=== PATIENT | female | born 1945 | race Caucasian/White ===

== ENCOUNTER 2022-12-19 08:29 | Outpatient (REF) | payer MEDICARE, MEDICAID, SELFPAY ==
--- OUTSIDE RECORDS SUMMARY | 2022-12-19 08:40 | XMS_ITS | CCD ---
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 Allergies Unknown or Not Available. Procedures Unknown or Not Available. History of Immunizations Unknown or Not Available. Problems Unknown or Not Available. Results Unknown or Not Available. Active Medications Unknown or Not Available. Medications Administered During Visit Unknown or Not Available. Encounters Unknown or Not Available. Social History Unknown or Not Available. Patient Decision Aids Unknown or Not Available. Discharge Instructions You were admitted to [facility] You were discharged from [facility] Should you have any questions prior to discharge, please contact a member of your healthcare team. If you have left the hospital and have any questions, please contact your primary care physician. Chief Complaint and Reason For Visit Unknown or Not Available. Function Status Unknown or Not Available. Plan of Care Unknown or Not Available. Referral/Transition of Care Unknown or Not Available.
--- OUTSIDE RECORDS SUMMARY | 2022-12-19 08:40 | XMS_ITS | Continuity of Care Document ---
Author Name Unknown Organization [facility] Address [address] [place] [address] Care Team Providers Care Medical Technologist Blood Bank Name Role Phone Jeannine Fernandes Primary Care Physician Noreen York Unavailable Unavailable Encounter [id number] Date(s): 10/29/22 - 10/29/22 [facility] [address] [place] [address] Encounter Diagnosis Hypercalcemia(Discharge Diagnosis) - 10/29/22 Discharge Disposition: Home or Self Care Attending Physician: Sang Dutton MD Admitting Physician: Sang Dutton MD Allergies, Adverse Reactions, Alerts Substance Reaction Severity Status codeine Rapid heart beat Unknown Active azithromycin Skin rash Unknown Active Assessment and Plan Extracted from: Title:Clinical Document Author:Vikki Bernard te:10/30/22 Diagnosis: 1. Hypercalcemia Comment: Diagnosis: Abnormal laboratory findings Comment: Diagnosis: Hyperglycemia - symptomatic Comment: Future Appointments Diagnostic Tests Pending * 1,25-Dihydroxyvitamin D, S PEREZ 10/29/22 Future Scheduled Tests Laboratory* Magnesium Level 05/22/22 Functional Status 10/29/22 Family Member Travel History No recent t ravel Recent Travel History No recent travel Other exposure to Infectious Disease Non e Immunizations Given and Recorded Vaccine Date Status Refusal Reason influenza virus vaccine, inactivated 04/09/22 Give n influenza virus vaccine, inactivated 04/21/13 Amaury rded influenza virus vaccine, inactivated 03/21/12 Amaury rded influenza virus vaccine, inactivated 02/27/11 Amaury rded influenza virus vaccine, inactivated 03/19/10 Amaury rded influenza virus vaccine, inactivated 05/28/09 Amaury rded influenza virus vaccine, inactivated 04/21/07 Amaury rded influenza virus vaccine, inactivated 03/24/06 Amaury rded influenza virus vaccine, inactivated 03/26/05 Amaury rded SARS-CoV-2 (COVID-19) mRNA BNT-162b2 vax 04/22/21 Recorded SARS-CoV-2 (COVID-19) mRNA BNT-162b2 vax 08/16/20 Recorded SARS-CoV-2 (COVID-19) mRNA BNT-162b2 vax 07/26/20 Recorded influenza, unspecified formulation 03/20/21 Record ed influenza, unspecified formulation 03/27/20 Record ed influenza, unspecified formulation 03/22/18 Record ed influenza, unspecified formulation 06/22/17 Record ed influenza, unspecified formulation 04/18/15 Record ed pneumococcal 23-polyvalent vaccine 03/27/20 Record ed pneumococcal 23-polyvalent vaccine 06/07/08 Record ed pneumococcal 23-polyvalent vaccine 06/07/02 Record ed pneumococcal 13-valent conjugate vaccine 09/16/15 Recorded tetanus/diphth/pertuss (Tdap) adult/adol 08/25/10 Recorded tetanus-diphth toxoids (Td) adult/adol 06/07/04 Re corded varicella virus vaccine 06/07/00 Recorded Medications amLODIPine 5 mg oral tablet 5 mg = 1 tab, Oral, Daily, # 90 tab, 3 Refill(s), Pharmacy: [facility] [place], 168, cm, 09/23/22 17:19:00 EDT, Height/Length Dosing, 64.1, kg, 09/23/22 17:19:00 EDT, Weight Dosing Start Date: 10/20/22 Status: Ordered aspirin 81 mg oral tablet, chewable 81 mg = 1 tab, Oral, Daily, # 90 tab, 0 Refill(s), Pharmacy: [facility] [place], 160, cm, 06/14/22 22:46:00 EST, Height/Length Dosing, 83, kg, 06/14/22 22:46:00 EST, Weight Dosing Start Date: 08/28/22 Status: Ordered atorvastatin 40 mg oral tablet 1 tab, Oral, Daily, # 84 tab, 0 Refill(s), Pharmacy: [facility] [address], 160, cm, 06/14/22 22:46:00 EST, Height/Length Dosing, 83, kg, 06/14/22 22:46:00 EST, Weight Dosing Start Date: 08/24/22 Status: Ordered BD Pen Needle Mini U/F 31G X 5 MM MISC BD Pen Needle Mini U/F 31G X 5 MM MISC, See Instructions, USE FOUR TIMES A DAY DIRECTED, # 100 EA, 2 Refill(s), Pharmacy: [facility] [address], 160, cm, 06/14/22 22:46:00 EST, Height/Length Dosing, 83, kg, 06/14/22 22:46:00 EST, Weight Dosing Start Date: 07/26/22 Status: Ordered BD UF MINI PEN NEEDLE [id number] BD UF MINI PEN NEEDLE [id number], See Instructions, USE DIRECTED FOUR TIMES A DAY NEEDED, # 100 EA, 3 Refill(s), Pharmacy: [facility] Start Date: 02/24/22 Status: Ordered BD UF Pen Needle Mini [id number] BD UF Pen Needle Mini [id number], Use one needle for each injection daily. (current Injections are 4 times daily), Supply, See instructions, # 100 EA, 2 Refill(s), Pharmacy: [facility] Start Date: 01/16/22 Status: Ordered Colace 100 mg oral capsule 100 mg = 1 cap, Oral, Daily, PRN as needed for constipation, # 90 cap, 0 Refill(s), Pharmacy: [facility], 168, cm, 09/23/22 17:19:00 EDT, Height/Length Dosing, 64.1, kg, 09/23/22 17:19:00 EDT, Weight Dosing Start Date: 10/13/22 Status: Ordered ferrous gluconate 324 mg (38 mg elemental iron) oral tablet 324 mg = 1 tab, Oral, Daily, # 90 tab, 0 Refill(s), Pharmacy: [facility] [place], 160, cm, 08/31/22 11:50:00 EDT, Height/Length Dosing, 36.2, kg, 08/31/22 11:50:00 EDT, Weight Dosing Start Date: 09/01/22 Status: Ordered ferrous gluconate 324 mg (38 mg elemental iron) oral tablet 324 mg = 1 tab, Oral, Daily Start Date: 12/17/21 Status: Ordered folic acid 1 mg oral tablet 1 mg = 1 tab, Oral, Daily, # 90 tab, 0 Refill(s), Pharmacy: [facility] [place], 160, cm, 08/31/22 11:50:00 EDT, Height/Length Dosing, 36.2, kg, 08/31/22 11:50:00 EDT, Weight Dosing Start Date: 09/01/22 Status: Ordered Glucerna Glucerna, Twice a day, Supply, See instructions, # 60 EA, 3 Refill(s), Pharmacy: [facility] Start Date: 07/13/22 Status: Ordered Levemir FlexTouch 100 units/mL subcutaneous solution 15 units =, Subcutaneous, every night at bedtime Start Date: 05/13/22 Status: Ordered magnesium oxide 400 mg (241.3 mg elemental magnesium) oral tablet 1 tab, Oral, BID, # 56 tab, 3 Refill(s), Pharmacy: [facility] [address], 168, cm, 09/01/22 14:46:00 EDT, Height/Length Dosing, 66.2, kg, 09/01/22 14:46:00 EDT, Weight Dosing Start Date: 09/22/22 Status: Ordered Melatonin 3 mg oral tablet 1 tab, Oral, every night at bedtime, # 28 tab, 3 Refill(s), Pharmacy: [facility] [address], 168, cm, 09/01/22 14:46:00 EDT, Height/Length Dosing, 66.2, kg, 09/01/22 14:46:00 EDT, Weight Dosing Start Date: 09/22/22 Status: Ordered memantine 5 mg oral tablet 5 mg = 1 tab, Oral, BID, # 60 tab, 5 Refill(s), Pharmacy: [facility] [place], 168, cm, 09/23/22 17:19:00 EDT, Height/Length Dosing, 64.1, kg, 09/23/22 17:19:00 EDT, Weight Dosing Start Date: 10/23/22 Status: Ordered Metoprolol Succinate ER 25 mg oral tablet, extended release 25 mg = 1 tab, Oral, Daily, TAKE ONE TABLET BY MOUTH EVERY DAY, # 90 tab, 3 Refill(s), Pharmacy: [facility] Start Date: 01/01/22 Status: Ordered MiraLax oral powder for reconstitution 17 g, Oral, Daily, PRN constipation, # 12 EA, 5 Refill(s), [facility], 168,cm, 09/23/22 17:19:00 EDT, Height/Length Dosing, 64.1, kg, 09/23/22 17:19:00 EDT, Weight Dosing Start Date: 10/23/22 Status: Ordered mupirocin 2% topical ointment See Instructions, APPLY A SMALL AMOUNT TOPICALLY TO AFFECTED AREA(S) THREE TIMES A DAY, # 22 g, 1 Refill(s), Pharmacy: [facility] Start Date: 03/23/22 Status: Ordered nitroglycerin 0.4 mg sublingual tablet 0.4 mg = 1 tab, SL, every 5 min, not to exceed 3 doses/15 min--if pain persists, seek medical attention, # 30 tab, 0 Refill(s), [facility], [facility], cm, 06/14/22 22:46:00 EST, Height/Length Dosing, 83, kg, 06/14/22 22:46:00 EST, We... Start Date: 06/18/22 Status: Ordered NovoLOG FlexPen 100 units/mL injectable solution 5 units =, Subcutaneous, TID(AC), # 10 mL, 0 Refill(s), Pharmacy: [facility], 168, cm, 05/16/22 21:31:00 EST, Height/Length Dosing, 70, kg, 05/16/22 21:31:00 EST, Weight Dosing Start Date: 06/04/22 Status: Ordered Onetouch Ultra Blue Test Strips Onetouch Ultra Blue Test Strips, use as directed four times daily, Supply, See instructions, # 300 EA, 12 Refill(s), Pharmacy: [facility] [place] Start Date: 07/27/22 Status: Ordered oxybutynin 5 mg oral tablet 5 mg = 1 tab, Oral, BID, PRN as needed for urinary discomfort, 2-3 TIMES DAILY NEEDED, # 30 tab,0 Refill(s), [facility], 168, cm, 05/16/22 21:31:00 EST, Height/Length Dosing, 70, kg, 05/16/22 21:31:00 EST, Weight Dosing Start Date: 06/04/22 Status: Ordered pantoprazole 40 mg oral delayed release tablet 40 mg = 1 tab, Oral, Daily Start Date: 05/13/22 Status: Ordered propranolol 20 mg oral tablet 3 tab, Oral, BID, # 180 tab, 5 Refill(s), Pharmacy: [facility] [place], 168, cm, 09/23/22 17:19:00 EDT, Height/Length Dosing, 64.1, kg, 09/23/22 17:19:00 EDT, Weight Dosing Start Date: 10/23/22 Status: Ordered venlafaxine 150 mg oral capsule, extended release 150 mg = 1 cap, Oral, Daily, # 90 cap, 3 Refill(s), Pharmacy: [facility] [place], 160, cm, 08/31/22 11:50:00 EDT, Height/Length Dosing, 36.2, kg, 08/31/22 11:50:00 EDT, Weight Dosing Start Date: 09/01/22 Status: Ordered Vitamin B2 100 mg oral tablet See Instructions, TAKE 1 TABLET BY MOUTH DAILY, # 84 tab, 2 Refill(s), Pharmacy: [facility] [address], 168, cm, 09/01/22 14:46:00 EDT, Height/Length Dosing, 66.2, kg, 09/01/22 14:46:00 EDT, Weight Dosing Start Date: 09/03/22 Status: Ordered Vitamin C TR 500 mg oral capsule 1 cap, Oral, Daily, 0 Refill(s) Start Date: 12/17/21 Status: Ordered Problem List Condition Confirmation Course Effective Dates Status H ealth Status Informant Abdominal pain Confirmed Active Anemia 1 Confirmed Active Anxiety Confirmed Active Atrial thrombus Confirmed Active Atrophic gastritis 2 Confirmed Active Chest pain Confirmed Active Chronic kidney disease stage 4 3 Confirmed 04/18/19 Active 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 Delirium Confirmed 04/18/19 Active Depressive disorder 4 Confirmed Active Disease caused by 2019 novel coronavirus 5 Confirmed 08/31/22 Active Essential tremor 6 Confirmed Active Gastroesophageal reflux disease Confirmed Active GI bleed Confirmed Active Hyperlipidemia Confirmed Active Hyperosmolality Confirmed 04/18/19 Active Hypertensive disorder Confirmed Active Idiopathic osteoarthritis 7 Confirmed Active Irritable bowel syndrome with diarrhea 8 Confirmed Active Migraine Confirmed Active Obesity Confirmed Active Posttraumatic stress disorder Confirmed Active Imaging abnormality Confirmed Active Recurrent major depression 9 Confirmed Active Renal mass 10 Confirmed 11/5/19 Active Type 2 diabetes mellitus without complication 11 Confirmed 12/26/19 Active Unintended weight loss Confirmed Active Urinary incontinence 12 Confirmed Active Urinary tract infectious disease 13 Confirmed 03/26/21 Active 1From 09-14-2021 visit: Stable, monitor, c/w iron supplementation. 2From 07-11-2018 visit: Recommend trialing to cut down on pantoprazole as tolerated. Can cut pills in half versus alternating every other day. 3From 10-03-2020 visit: Renal decline has slowed and is now presumably stable. We discussed hydration and avoidance of nephrotoxic agents. We will continue to monitor renal function. 4From 09-12-2021 visit: Well controlled, c/w venlafaxine 150 mg QD. Pt was on both venlafaxine and amitrytyline but this was dc'ed due to risk of serotonin syndrome. Mood at baseline. 5Problem added by Rule (IC_COVID19_AUTO_PROBLEM) following SARS-CoV-2 (COVID- 19)/Flu/RSV (GeneXpert)from Nasal Swab collected on 31-AUG-2022 11:58:00 EDT tested positive for COVID-19. 6From 09-12-2021 visit: Improvement w/ propanolol, which also seems to be helping headaches. Continue w/ dosing of 60 mg BID. 7From 12-19-2020 visit: Pain and restriction in lower extremities. Compounded by advanced essential tremor. Remains high risk for falls. Her walker has helped, but occasionally requires rests/stops. She is advised to obtaina rolling walker with a seat that will allow her to rest and avoid falls. 8From 03-18-2020 visit: Ongoing symptoms of diarrhea, with some predominant cramping and pain. Currently managed with sparing use of loperamide as needed 9From 12-02-2020 visit: Was seeing a counsellor but unclear why this relationship has ended. May be complicated by loneliness, but she is encouraged to re-establish with counsellor 10From 04-11-2019 visit: Cystic lesion on right kidney, with multiple nodules noted in the lungs. High concern for malignancy with metastasis, but unknown primary. Will obtain PET scan to determine ideal site for biopsy. 11From 10-13-2021 visit: BS have been better controlled, still having high readings in AM. Usual BS values <250s, compared to previous. Continue w/ novolog 5 units TID w/ meals as long as BS <300, take 10 units if BS >300. Given elevated BS in AM, restart on levemir but at dosing of 5 units QHS with hold parameters if evening BS is <150 as she checks QID. Will also obtain labs today given CKD and check renal f unction. 12From 10-13-2021 visit: At baseline, needs med refilled. 13From 03-28-2021 visit: e coli green sensitive on keflex Procedures Procedure Date Related Diagnosis Body Site Status Colonoscopy 11/22/14 Completed Ventral Hernia Repair 01/17/12 Com pleted EGD - Esophagogastroduodenoscopy 1 06/12/08 Completed Oophorectomy- left 06/06/03 Comple mason Appendectomy 06/06/79 Completed Oophorectomy-right 06/06/79 Comple mason Cholecystectomy 06/06/73 Completed Total abdominal hysterectomy 06/06/71 Completed 1With biopsy for H Pylori, negative Results Laboratory List Name Date Calcium Level Ionized 10/29/22 Comprehensive Metabolic Panel (CMP) 10/29 Free T4 10/29/22 PTH Intact [facility] 10/29/22 Beta Hydroxybutyrate 10/29/22 Blood Gas Venous 10/29/22 CBC w/ Diff 10/29/22 Calcium Level Ionized 10/29/22 Comprehensive Metabolic Panel (CMP) 10/29 Thyroid Stimulating Hormone (TSH) 3 Automated Diff 10/29/22 Glucose POCT 10/29/22 Most recent to oldest [Reference Range]: 1 2 WBC [5.0-10.0 x10^3/mcL] 9.4 x10^3/mcL (10/29/22 4:55 PM) RBC [4.1-5.3 x10^6/mcL] 3.7 x10^6/mcL *LOW* (10/29/22 4:55 PM) Neutro Auto [40.0-75.0 %] 75.9 % *HI* (10/29/22 4:55 PM) Lymph Auto [20.0-50.0 %] 13.2 % *LOW* (10/29/22 4:55 PM) Marin Auto [2.0-15.0 %] 6.6 % (10/29/22 4:55 PM) Basophil Auto [0.0-1.0 %] 0.6 % (10/29/22 4:55 PM) BUN [7-18 mg/dL] 43 mg/dL *HI* (10/29/22 7:59 PM) 48 mg/dL *HI* (10/29/22 4:55 PM) Glucose POC [74-106 mg/dL] 322 mg/dL *HI* (10/29/22 4:45 PM) Glucose Level [74-106 mg/dL] 239 mg/dL *HI* (10/29/22 7:59 PM) 356 mg/dL *HI* (10/29/22 4:55 PM) Potassium Level [3.5-5.1 mmol/L] 3.8 mmo l/L (10/29/22 7:59 PM) 4.4 mmol/L (10/29/22 4:55 PM) MCV [80.0-96.0 fL] 95.7 fL (10/29/22 4:55 PM) T4 Free [0.76-1.46 ng/dL] 1.12 ng/dL (10/29/22 7:59 PM) CO2 Total Venous 34 mmol/L *NA* (10/29/22 4:55 PM) HCO3 Venous [22-30 mmol/L] 33 mmol/L *HI* (10/29/22 4:55 PM) AST [15-37 unit/L] 17 unit/L (10/29/22 7:59 PM) 16 unit/L (10/29/22 4:55 PM) ALT [14-59 unit/L] 14 unit/L (10/29/22 7:59 PM) 14 unit/L (10/29/22 4:55 PM) MCHC [31.0-35.0 g/dL] 33.1 g/dL (10/29/22 4:55 PM) Sodium Level [136-145 mmol/L] 139 mmol/L (10/29/22 7:59 PM) 134 mmol/L *LOW* (10/29/22 4:55 PM) Hct [37.0-47.0 %] 35.3 % *LOW* (10/29/22 4:55 PM) Calcium Level [8.5-10.1 mg/dL] 11.4 mg/d L *HI* (10/29/22 7:59 PM) 13.3 mg/dL 1 *CRIT* (10/29/22 4:55 PM) Albumin Level [3.4-5.0 g/dL] 2.5 g/dL *LOW* (10/29/22 7:59 PM) 3.1 g/dL *LOW* (10/29/22 4:55 PM) Protein Total [6.4-8.2 g/dL] 5.9 g/dL *LOW* (10/29/22 7:59 PM) 7.5 g/dL (10/29/22 4:55 PM) MCH [26.0-32.0 pg] 31.7 pg (10/29/22 4:55 PM) Neutro Absolute 7.2 x10^3/mcL *NA* (10/29/22 4:55 PM) Bilirubin Total [0.2-1.0 mg/dL] 0.4 mg/d L (10/29/22 7:59 PM) 0.6 mg/dL (10/29/22 4:55 PM) Hgb [12.0-16.0 g/dL] 11.7 g/dL *LOW* (10/29/22 4:55 PM) Alk Phos [46-146 unit/L] 89 unit/L (10/29/22 7:59 PM) 110 unit/L (10/29/22 4:55 PM) pCO2 Romain [33-47 mmHg] 58 mmHg *HI* (10/29/22 4:55 PM) Platelets [130-450 x10^3/mcL] 108 x10^3/ mcL *LOW* (10/29/22 4:55 PM) CO2 [21-32 mmol/L] 28 mmol/L (10/29/22 7:59 PM) 32 mmol/L (10/29/22 4:55 PM) Calcium Level Ionized [1.12-1.32 mmol/L] 1.55 mmol/L *HI* (10/29/22 7:59 PM) 1.66 mmol/L *HI* (10/29/22 4:55 PM) TSH [0.358-3.740 mcIntlUnit/mL] 4.064 mc IntlUnit/mL *HI* (10/29/22 4:55 PM) pO2 Romain 20 mmHg *NA* (10/29/22 4:55 PM) pH Romain [7.32-7.43 pH unit(s)] 7.36 pH un it(s) (10/29/22 4:55 PM) O2 Sat Romain 32 % *NA* (10/29/22 4:55 PM) eGFR Non-AA [>=60] 15 *LOW* (10/29/22 7:59 PM) 13 *LOW* (10/29/22 4:55 PM) eGFR AA [>=60] 15 *LOW* (10/29/22 7:59 PM) 13 *LOW* (10/29/22 4:55 PM) Base Excess Venous 5.6 mmol/L *NA* (10/29/22 4:55 PM) Chloride Level [98-107 mmol/L] 102 mmol/ L (10/29/22 7:59 PM) 94 mmol/L *LOW* (10/29/22 4:55 PM) RDW-CV [11.5-14.5 %] 14.7 % *HI* (10/29/22 4:55 PM) Imm Gran Auto [0.0-0.9 %] 0.3 % (10/29/22 4:55 PM) Creatinine Level [0.55-1.02 mg/dL] 3.13 mg/dL *HI* (10/29/22 7:59 PM) 3.57 mg/dL *HI* (10/29/22 4:55 PM) PTH Intact [facility] [19-88 pg/mL] 10 pg/mL 2 *LOW* (10/29/22 5:36 PM) Beta-Hydroxybutyrate [0.0-0.5 mmol/L] 0. 5 mmol/L (10/29/22 5:31 PM) Eos, Auto [1.0-6.0 %] 3.4 % (10/29/22 4:55 PM) 1Result Comment: Called to and verbally verified by Lorna Garcia (OSMAN) at _10/29/2022 17:45:29 EDT PJB. 2Result Comment: Test performed [place] [address] Vital Signs Most recent to oldest [Reference Range]: 1 2 3 Temperature Temporal Artery [36-38 Deg C] 36.1 Deg C (10/29/22 4:28 PM) Peripheral Pulse Rate [60-100 bpm] 64 bpm (10/29/22 9:13 PM) 58 bpm *LOW* (10/29/22 7:09 PM) 56 bpm *LOW* (10/29/22 5:30 PM) Heart Rate Monitored [60-100 bpm] 64 bpm (10/29/22 9:13 PM) 57 bpm *LOW* (10/29/22 5:30 PM) 60 bpm (10/29/22 5:00 PM) Respiratory Rate [12-24 br/min] 15 br/min (10/29/22 9:13 PM) 16 br/min (10/29/22 7:09 PM) 14 br/min (10/29/22 5:30 PM) Blood Pressure [90-140/60-90 mmHg] 113/54mmHg (10/29/22 9:13 PM) 123/57mmHg (10/29/22 7:09 PM) 120/42mmHg (10/29/22 5:30 PM) Weight Dosing 64.86 kg (10/29/22 4:36 PM) Weight Estimated 64.86 kg (10/29/22 4:28 PM) Height/Length Dosing 167.000 cm (10/29/22 4:36 PM) Height/Length Estimated 167.000 cm (10/29/22 4:28 PM) Social History Social History Type Response Tobacco Never tobacco user T obacco Use:. Sex Female Hospital Discharge Instructions Follow Up Care 10/29/2022 16:28:19 With:Jeannine Fernandes MD Address: [place] [address]- When:1 to 2 days Physician Emergency department Note * Merritt Vitale MD: PERFORM, MODIFY Event Display: ED Note Physician Authored Date: [id number] MARIA INES BROOKS :1945 Age:77 years Sex:Female Visit Date:10/29/2022 Primary Care Physician: Jeannine Fernandes MD ED Supervision/Handoff Note: Patient who was signed out to me by Dr. Dutton??pending??hydration and checking of calcium level History Of Present Illness: Patient with hypercalcemia comes with a calcium level of 13??who received IV hydration??by Dr. Dutton Review of Systems: As per Dr. Dutton Medical Decision Making: Patient who has a history of hypercalcemia??there is no??etiology??and her parathyroid hormone is low.?? She came with a calcium level that was high??but has now improved after IV hydration and will be discharged home Vitals & Measurements T:??36.1?C ??(Temporal Artery)?? HR:??64??(Peripheral)?? HR:??64??(Monitored)?? RR:??15?? BP:??113/54?? SpO2:??97%?? HT:??167.000??cm?? WT:??64.86??kg??(Estimated)?? O2 Therapy:??Room air?? Procedure No Qualifying Data Lab Results Blood Gases?? LATEST RESULTS?? HISTORICAL RESULTS?? pH Romain?? 10/29/22 16:55?? 7.36?? 09/01/22?? 7.40?? pCO2 Romain?? 10/29/22 16:55?? 58 ??High?? 09/01/22?? 36?? pO2 Romain?? 10/29/22 16:55?? 20?? 09/01/22?? 43?? HCO3 Venous?? 10/29/22 16:55?? 33 ??High?? 09/01/22?? 23?? O2 Sat Romain?? 10/29/22 16:55?? 32?? 09/01/22?? 85?? CO2 Total Venous?? 10/29/22 16:55?? 34?? 09/01/22?? 24?? Base Excess Venous?? 10/29/22 16:55?? 5.6?? 09/01/22?? -1.8? CBC and Differential?? LATEST RESULTS?? HISTORICAL RESULTS?? WBC?? 10/29/22 16:55?? 9.4?? 09/23/22?? 7.2?? RBC?? 10/29/22 16:55?? 3.7 ??Low?? 09/23/22?? 4.1?? Hgb?? 10/29/22 16:55?? 11.7 ??Low?? 09/23/22?? 12.5?? Hct?? 10/29/22 16:55?? 35.3 ??Low?? 09/23/22?? 37.8?? MCV?? 10/29/22 16:55?? 95.7?? 09/23/22?? 92.4?? MCH?? 10/29/22 16:55?? 31.7?? 09/23/22?? 30.6?? MCHC?? 10/29/22 16:55?? 33.1?? 09/23/22?? 33.1?? RDW-CV?? 10/29/22 16:55?? 14.7 ??High?? 09/23/22?? 14.3?? Platelets?? 10/29/22 16:55?? 108 ??Low?? 09/23/22?? 166?? Neutro Auto?? 10/29/22 16:55?? 75.9 ??High?? 09/23/22?? 62.9?? Lymph Auto?? 10/29/22 16:55?? 13.2 ??Low?? 09/23/22?? 21.7?? Marin Auto?? 10/29/22 16:55?? 6.6?? 09/23/22?? 9.3?? Eos, Auto?? 10/29/22 16:55?? 3.4?? 09/23/22?? 4.6?? Basophil Auto?? 10/29/22 16:55?? 0.6?? 09/23/22?? 0.7?? Imm Gran Auto?? 10/29/22 16:55?? 0.3?? 09/23/22?? 0.8?? Neutro Absolute?? 10/29/22 16:55?? 7.2?? 09/23/22?? 4.5? Routine Chemistry?? LATEST RESULTS?? HISTORICAL RESULTS?? Sodium Level?? 10/29/22 19:59?? 139?? 10/27/22?? 132 ??Low?? Potassium Level?? 10/29/22 19:59?? 3.8?? 10/27/22?? 4.8?? Chloride Level?? 10/29/22 19:59?? 102?? 10/27/22?? 93 ??Low?? CO2?? 10/29/22 19:59?? 28?? 10/27/22?? 30?? Alk Phos?? 10/29/22 19:59?? 89?? 10/27/22?? 111?? AST?? 10/29/22 19:59?? 17?? 10/27/22?? 14 ??Low?? ALT?? 10/29/22 19:59?? 14?? 10/27/22?? 14?? BUN?? 10/29/22 19:59?? 43 ??High?? 10/27/22?? 50 ??High?? Glucose Level?? 10/29/22 19:59?? 239 ??High?? 10/27/22?? 355 ??High?? Creatinine Level?? 10/29/22 19:59?? 3.13 ??High?? 10/27/22?? 3.37 ??High?? eGFR AA?? 10/29/22 19:59?? 15 ??Low?? 10/27/22?? 13 ??Low?? eGFR Non-AA?? 10/29/22 19:59?? 15 ??Low?? 10/27/22?? 13 ??Low?? Calcium Level?? 10/29/22 19:59?? 11.4 ??High?? 10/27/22?? 13.2 ??Critical?? Protein Total?? 10/29/22 19:59?? 5.9 ??Low?? 10/27/22?? 7.3?? Albumin Level?? 10/29/22 19:59?? 2.5 ??Low?? 10/27/22?? 3.1 ??Low?? Bilirubin Total?? 10/29/22 19:59?? 0.4?? 10/27/22?? 0.5?? Calcium Level Ionized?? 10/29/22 19:59?? 1.55 ??High?? 10/27/22?? 1.71 ??High?? Beta-Hydroxybutyrate?? 10/29/22 17:31?? 0.5?? 09/23/22?? 0.4?? Glucose POC?? 10/29/22 16:45?? 322 ??High?? 09/03/22?? 275 ??High? Thyroid Studies?? LATEST RESULTS?? HISTORICAL RESULTS?? T4 Free?? 10/29/22 19:59?? 1.12? TSH?? 10/29/22 16:55?? 4.064 ??High?? 05/13/22?? 2.870? Assessment/Plan 1.??Hypercalcemia??E83.52 Electronically Signed on 10/29/22 09:33 PM Merritt Vitale MD Emergency department Discharge instructions * Merritt Vitale MD: PERFORM, MODIFY Event Display: ED Discharge Information Authored Date: [id number] MARIA INES BROOKS :1945 Age:77 years Sex:Female Visit Date:10/29/2022 Primary Care Physician: Jeannine Fernandes MD Discharge Instructions We would like to thank you for allowing us to assist you with your healthcare needs. The following includes patient education materials and information regarding your injury/illness. Diagnosis from Today's Visit Hypercalcemia Discharge Vitals Temperature??(Temporal Artery) 97.0 ??F (36.1 ??C) Heart Rate??(Peripheral) 64 Heart Rate??(Monitored) 64 Respiratory Rate?? 15 Blood Pressure?? 113/54?? Height?? 65.75 in (167.000 cm) Weight??(Estimated) 143.02 lb (64.86 kg) Allergies azithromycin??(Skin rash) codeine??(Rapid heart beat) What to Do Next You Need to Schedule the Following Appointments Follow Up with??Jeannine Fernandes MD When:??Within 1 to 2 days Where: [place] [address]- Upcoming Scheduled Appointments Wednesday 11:20 AM EDT ?? Wednesday 10:00 AM EDT ?? You were treated today on an emergency basis; it may be ospina to contact your primary care provider to notify them of your visit today. You may have been referred to your regular doctor or a specialist, please follow up as instructed. If your condition worsens or you can't get in to see the doctor, contact the Emergency Department. Medications What How Much When Why Instructions Next Dose Unchanged amLODIPine (amLODIPine 5 mg oral tablet) 1 tab Oral (given by mouth) Every day Unchanged ascorbic acid (Vitamin C TR 500 mg oral capsule) 1 Capsules Oral (given by mouth) Every day Unchanged aspirin (aspirin 81 mg oral tablet, chewable) 1 tab Oral (given by mouth) Every day Unchanged atorvastatin (atorvastatin 40 mg oral tablet) 1 tab Oral (given by mouth) Every day Unchanged docusate (Colace 100 mg oral capsule) 1 Capsules Oral (given by mouth) Every day as needed for as needed for constipation Abdominal pain Unchanged Durable Medical Equipment for Prescription (BD UF Pen Needle Mini [id number]) See instructions DM2 (diabetes mellitus, type 2) Use one needle for each injection daily. (current Injections are 4 times daily) ?? Unchanged Durable Medical Equipment for Prescription (Glucerna) See instructions Twice a day ?? Unchanged Durable Medical Equipment for Prescription (Onetouch Ultra Blue Test Strips) See instructions Diabetes use as directed four times daily ?? Unchanged ferrous gluconate (ferrous gluconate 324 mg (38 mg elemental iron) oral tablet) 1 tab Oral (given by mouth) Every day Unchanged ferrous gluconate (ferrous gluconate 324 mg (38 mg elemental iron) oral tablet) 1 tab Oral (given by mouth) Every day Unchanged folic acid (folic acid 1 mg oral tablet) 1 tab Oral (given by mouth) Every day Unchanged insulin aspart (NovoLOG FlexPen 100 units/ mL injectable solution) 5 Units Subcutaneous (under the skin) 3 times a day before meals Unchanged insulin detemir (Levemir FlexTouch 100 units/ mL subcutaneous solution) 15 Units Subcutaneous (under the skin) Every night at bedtime Unchanged magnesium oxide (magnesium oxide 400 mg (241.3 mg elemental magnesium) oral tablet) 1 tab Oral (given by mouth) 2 times a day Unchanged melatonin (Melatonin 3 mg oral tablet) 1 tab Oral (given by mouth) Every night at bedtime Unchanged memantine (memantine 5 mg oral tablet) 1 tab Oral (given by mouth) 2 times a day Unchanged metoprolol (Metoprolol Succinate ER 25 mg oral tablet, extended release) 1 tab Oral (given by mouth) Every day TAKE ONE TABLET BY MOUTH EVERY DAY ?? Unchanged mupirocin topical (mupirocin 2% topical ointment) See instructions APPLY A SMALL AMOUNT TOPICALLY TO AFFECTED AREA(S) THREE TIMES A DAY ?? Unchanged nitroglycerin (nitroglycerin 0.4 mg sublingual tablet) 1 tab Sublingual (dissolve under the tongue) Every 5 minutes not to exceed 3 doses/ 15 min--if pain persists, seek medical attention ?? Unchanged Other Prescription (BD Pen Needle Mini U/ F 31G X 5 MM MISC) See instructions USE FOUR TIMES A DAY DIRECTED ?? Unchanged Other Prescription (BD UF MINI PEN NEEDLE [id number]) See instructions USE DIRECTED FOUR TIMES A DAY NEEDED ?? Unchanged oxybutynin (oxybutynin 5 mg oral tablet) 1 tab Oral (given by mouth) 2 times a day as needed for as needed for urinary discomfort 2-3 TIMES DAILY NEEDED ?? Unchanged pantoprazole (pantoprazole 40 mg oral delayed release tablet) 1 tab Oral (given by mouth) Every day Unchanged polyethylene glycol 3350 (MiraLax oral powder for reconstitution) 17 Gram Oral (given by mouth) Every day as needed for constipation Abdominal pain Unchanged propranolol (propranolol 20 mg oral tablet) 3 tab Oral (given by mouth) 2 times a day Unchanged riboflavin (Vitamin B2 100 mg oral tablet) See instructions TAKE 1 TABLET BY MOUTH DAILY ?? Unchanged venlafaxine (venlafaxine 150 mg oral capsule, extended release) 1 Capsules Oral (given by mouth) Every day Tests Performed Medications and Immunizations Administered Given 0.9% NaCl bolus, 1 L, IV Bolus NS bolus, 1000 mL, IV Piggyback Lab Test Name Test Result Date/Time pH Romain 7.36 pH unit(s) 10/29/2022 16:55 EDT pCO2 Romain 58 mmHg 10/29/2022 16:55 EDT pO2 Romain 20 mmHg 10/29/2022 16:55 EDT HCO3 Venous 33 mmol/L 10/29/2022 16:55 EDT O2 Sat Romain 32 % 10/29/2022 16:55 EDT CO2 Total Venous 34 mmol/L 10/29/2022 16:55 EDT Base Excess Venous 5.6 mmol/L 10/29/2022 16:55 EDT WBC 9.4 x10^3/mcL 10/29/2022 16:55 EDT RBC 3.7 x10^6/mcL 10/29/2022 16:55 EDT Hgb 11.7 g/dL 10/29/2022 16:55 EDT Hct 35.3 % 10/29/2022 16:55 EDT MCV 95.7 fL 10/29/2022 16:55 EDT MCH 31.7 pg 10/29/2022 16:55 EDT MCHC 33.1 g/dL 10/29/2022 16:55 EDT RDW-CV 14.7 % 10/29/2022 16:55 EDT Platelets 108 x10^3/mcL 10/29/2022 16:55 EDT Neutro Auto 75.9 % 10/29/2022 16:55 EDT Lymph Auto 13.2 % 10/29/2022 16:55 EDT Marin Auto 6.6 % 10/29/2022 16:55 EDT Eos, Auto 3.4 % 10/29/2022 16:55 EDT Basophil Auto 0.6 % 10/29/2022 16:55 EDT Imm Gran Auto 0.3 % 10/29/2022 16:55 EDT Neutro Absolute 7.2 x10^3/mcL 10/29/2022 16:55 EDT Sodium Level 139 mmol/L 10/29/2022 19:59 EDT Potassium Level 3.8 mmol/L 10/29/2022 19:59 EDT Chloride Level 102 mmol/L 10/29/2022 19:59 EDT CO2 28 mmol/L 10/29/2022 19:59 EDT Alk Phos 89 unit/L 10/29/2022 19:59 EDT AST 17 unit/L 10/29/2022 19:59 EDT ALT 14 unit/L 10/29/2022 19:59 EDT BUN 43 mg/dL 10/29/2022 19:59 EDT Glucose Level 239 mg/dL 10/29/2022 19:59 EDT Creatinine Level 3.13 mg/dL 10/29/2022 19:59 EDT eGFR AA 15 10/29/2022 19:59 EDT eGFR Non-AA 15 10/29/2022 19:59 EDT Calcium Level 11.4 mg/dL 10/29/2022 19:59 EDT Protein Total 5.9 g/dL 10/29/2022 19:59 EDT Albumin Level 2.5 g/dL 10/29/2022 19:59 EDT Bilirubin Total 0.4 mg/dL 10/29/2022 19:59 EDT Calcium Level Ionized 1.55 mmol/L 10/29/2022 19:59 EDT Beta-Hydroxybutyrate 0.5 mmol/L 10/29/2022 17:31 EDT Glucose POC 322 mg/dL 10/29/2022 16:45 EDT T4 Free 1.12 ng/dL 10/29/2022 19:59 EDT TSH 4.064 mcIntlUnit/mL 10/29/2022 16:55 EDT Patient/Tyre Builder Signature Patient Name:MARIA INES BROOKS I have received this information and my questions have been answered. Patient/Tyre Builder Name: Patient/Tyre Builder Signature: Relationship to Patient: Witness Name/Signature: Date: Electronically Signed on: 10/29/2022 21:31 EDTSigned by:LOLA Discharge summary * Vikki Bernard: PERFORM Event Display: Discharge Note Authored Date: * Vikki Bernard: PERFORM Event Display: Discharge Note Authored Date: Diagnosis: 1. Hypercalcemia Comment: Diagnosis: Abnormal laboratory findings Comment: Diagnosis: Hyperglycemia - symptomatic Comment: Electronically Signed on 10/30/22 05:23 AM Vikki Bernard Patient Care team information Care Team Personnel Name: Jeannine Fernandes MD Position: Physician Member Role: Informed Provider Address: Address: [address] Name: Nithin Bellamy RIBBON LAPPER TENDER Position: Physician Member Role: Nurse Practitioner Address: Address: [address] Name: Noreen York Position: Ambulatory - RN/AIR BRUSH DECORATOR [facility]) Member Role: Medical Reception Name: Grupo Walters RIBBON LAP[employer] TENDER Position: Physician Member Role: Nurse Practitioner Name: Makenzie Rene Position: Nurse Member Role: ED Nurse Name: Juju Pena RN Position: Nurse Member Role: ED Nurse Name: Sang Dutton MD Position: Physician Member Role: Attending Physician Address: Address: [address] [place] [address] [place] [address] [place] Care Team Related Persons Name: ROMAN EARL Address: [place] [address] Address: [address] [phone] Name: ROMAN EARL Address: [address] [address] Address: [address] [phone]
--- OUTSIDE RECORDS SUMMARY | 2022-12-19 08:40 | XMS_ITS | Continuity of Care Document ---
Author Name Unknown Organization [facility] Address [address] [place] [address] Care Team Providers Care Medical Technologist Microbiology Name Role Phone Jeannine Fernandes Primary Care Physician Noreen York Unavailable Unavailable Encounter [facility] Date(s): 06/09/22 - 06/09/22 [facility] [address] [place] [address] Discharge Disposition: Home or Self Care Attending Physician: Contreras Salas MD Admitting Physician: Contreras Salas MD Referring Physician: Contreras Salas MD Allergies, Adverse Reactions, Alerts Substance Reaction Severity Status codeine Rapid heart beat Unknown Active azithromycin Skin rash Unknown Active Assessment and Plan Future Appointments Future Scheduled Tests Laboratory* CBC w/ Diff 05/06/22 * Comprehensive Metabolic Panel 05/06/22 * Magnesium Level 05/22/22 * Urinalysis with Micro if Indicated and Culture if Indicated 05/07/22 * CBC w/o Diff 05/22/22 * Urinalysis Notify Lab 05/07/22 Immunizations Given and Recorded Vaccine Date Status [...] vaccine 03/27/20 Record ed pneumococcal 23-polyvalent vaccine 06/07/02 Record ed pneumococcal 13-valent conjugate vaccine 09/16/15 Recorded tetanus/diphth/pertuss (Tdap) adult/adol 08/25/10 Recorded tetanus-diphth toxoids (Td) adult/adol 06/07/04 Re corded varicella virus vaccine 06/07/00 Recorded Medications acetaminophen 500 mg oral tablet 1,000 mg = 2 tab, Oral, every 6 hr, PRN not specified, 0 Refill(s) Start Date: 05/04/22 Status: Ordered amLODIPine 5 mg oral tablet 5 mg = 1 tab, Oral, Daily, # 30 tab, 5 Refill(s), Pharmacy: [facility], 161, cm, 05/12/2220:25:00 EST, Height/Length Dosing, 77.5, kg, 05/12/22 20:25:00 EST, Weight Dosing Start Date: 05/15/22 Status: Ordered apixaban 5 mg oral tablet 5 mg = 1 tab, Oral, BID, # 60 tab, 2 Refill(s), Pharmacy: [facility], 168, cm, 05/16/22 21:31:00 EST, Height/Length Dosing, 70, kg, 05/16/22 21:31:00 EST, Weight Dosing Start Date: 06/04/22 Status: Ordered aspirin 81 mg oral tablet, chewable 81 mg = 1 tab, Oral, Daily, # 90 tab, 1 Refill(s), Pharmacy: [facility], 161, cm, 05/12/22 20:25:00 EST, Height/Length Dosing, 77.5, kg, 05/12/22 20:25:00 EST, Weight Dosing Start Date: 05/15/22 Status: Ordered atorvastatin 40 mg oral tablet 40 mg = 1 tab, Oral, Daily, # 90 tab, 0 Refill(s), [facility], 168, cm, 05/16/22 21:31:00 EST, Height/Length Dosing, 70, kg, 05/16/22 21:31:00 EST, Weight Dosing Start Date: 06/04/22 Status: Ordered BD UF MINI PEN NEEDLE [id number] BD UF MINI PEN NEEDLE [id number], See Instructions, USE DIRECTED FOUR TIMES A DAY NEEDED, # 100 EA, 3 Refill(s), Pharmacy: [facility] Start Date: 02/24/22 Status: Ordered BD UF Pen Needle Mini [id number] BD UF Pen Needle Mini [id number], Use one needle for each injection daily. (current Injections are 4 times daily), Supply, See instructions, # 100 EA, 2 Refill(s), Pharmacy: [facility] Start Date: 01/16/22 Status: Ordered Eliquis 5 mg oral tablet 5 mg = 1 tab, Oral, BID, # 60 tab, 0 Refill(s) Start Date: 05/20/22 Status: Ordered ferrous gluconate 324 mg (38 mg elemental iron) oral tablet 324 mg = 1 tab, Oral, Daily Start Date: 12/17/21 Status: Ordered folic acid 1 mg oral tablet 1 mg = 1 tab, Oral, Daily, # 90 tab, 0 Refill(s), Pharmacy: [facility], 168, cm, 06/09/22 9:44:00 EST, Height/Length Dosing, 69.4, kg, 06/09/22 9:44:00 EST, Weight Dosing Start Date: 06/09/22 Status: Ordered Glucagon Emergency Kit for Low Blood Sugar 1 mg injection 0 Refill(s) Start Date: 05/04/22 Status: Ordered Levemir FlexTouch 100 units/mL subcutaneous solution 15 units =, Subcutaneous, every night at bedtime Start Date: 05/13/22 Status: Ordered loperamide 2 mg oral capsule 2 mg = 1 cap, Oral, every 4 hr, PRN as needed for loose stool, # 60 cap, 2 Refill(s), [facility], cm, 05/16/22 21:31:00 EST, Height/Length Dosing, 70, kg, 05/16/22 21:31:00 EST, Weight Dosing Start Date: 06/04/22 Status: Ordered magnesium oxide 400 mg (241.3 mg elemental magnesium) oral tablet 400 mg = 1 tab, Oral, BID, # 60 tab, 3 Refill(s), Pharmacy: [facility], 168, cm, 05/16/22 21:31:00 EST, Height/Length Dosing, 70, kg, 05/16/22 21:31:00 EST, Weight Dosing Start Date: 06/04/22 Status: Ordered Melatonin 3 mg oral tablet 3 mg 1 tab, Oral, every night at bedtime Start Date: 05/13/22 Status: Ordered memantine 5 mg oral tablet 5 mg = 1 tab, Oral, BID Start Date: 12/17/21 Status: Ordered Metoprolol Succinate ER 25 mg oral tablet, extended release 25 mg = 1 tab, Oral, Daily, TAKE ONE TABLET BY MOUTH EVERY DAY, # 90 tab, 3 Refill(s), Pharmacy: [facility] Start Date: 01/01/22 Status: Ordered mupirocin 2% topical ointment See Instructions, APPLY A SMALL AMOUNT TOPICALLY TO AFFECTED AREA(S) THREE TIMES A DAY, # 22 g, 1 Refill(s), Pharmacy: [facility] Start Date: 03/23/22 Status: Ordered nitroglycerin 0.4 mg sublingual tablet SL, every 5 min, not to exceed 3 doses/15 min--if pain persists, seek medical attention Start Date: 12/17/21 Status: Ordered NovoLOG FlexPen 100 units/mL injectable solution 5 units =, Subcutaneous, TID(AC), # 10 mL, 0 Refill(s), Pharmacy: [facility], 168, cm, 05/16/22 21:31:00 EST, Height/Length Dosing, 70, kg, 05/16/22 21:31:00 EST, Weight Dosing Start Date: 06/04/22 Status: Ordered Onetouch Ultra Blue Test Strips Onetouch Ultra Blue Test Strips, use as directed four times daily, Supply, See instructions, # 300 EA, 12 Refill(s) Start Date: 12/11/21 Status: Ordered oxybutynin 5 mg oral tablet 5 mg = 1 tab, Oral, BID, PRN as needed for urinary discomfort, 2-3 TIMES DAILY NEEDED, # 30 tab,0 Refill(s), Pharmacy: [facility], 168, cm, 05/16/22 21:31:00 EST, Height/Length Dosing, 70, kg, 05/16/22 21:31:00 EST, Weight Dosing Start Date: 06/04/22 Status: Ordered pantoprazole 40 mg oral delayed release tablet 40 mg = 1 tab, Oral, Daily Start Date: 05/13/22 Status: Ordered propranolol 20 mg oral tablet 60 mg = 3 tab, Oral, BID Start Date: 05/13/22 Status: Ordered selenium sulfide 2.5% topical lotion 1 zina, Topical, every 48 hr, USE SHAMPOO EVERY OTHER DAY WHEN SHE SHAMPOOS Start Date: 05/13/22 Status: Ordered venlafaxine 150 mg oral capsule, extended release 150 mg = 1 cap, Oral, Daily Start Date: 12/17/21 Status: Ordered Vitamin B2 100 mg oral tablet 100 mg = 1 tab, Oral, Daily Start Date: 05/13/22 Status: Ordered Vitamin C TR 500 mg oral capsule 1 cap, Oral, Daily, 0 Refill(s) Start Date: 12/17/21 Status: Ordered Problem List Condition Confirmation Course Effective Dates Status H ealth Status Informant Anemia Confirmed Active Atrial thrombus Confirmed Active Atrophic gastritis Confirmed Active Chest pain Confirmed Active Chronic kidney disease stage 4 Confirmed 04/18/19 Active 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 Delirium Confirmed 04/18/19 Active Depressive disorder Confirmed Active Essential tremor Confirmed Active Gastroesophageal reflux disease Confirmed Active Hyperlipidemia Confirmed Active Hyperosmolality Confirmed 04/18/19 Active Hypertensive disorder Confirmed Active Idiopathic osteoarthritis Confirmed Active Irritable bowel syndrome with diarrhea Confirmed Active Migraine Confirmed Active Obesity Confirmed Active Posttraumatic stress disorder Confirmed Active Recurrent major depression Confirmed Active Renal mass Confirmed 04/11/19 Active Type 2 diabetes mellitus without complication Confirmed 12/26/19 Active Urinary incontinence Confirmed Active Urinary tract infectious disease Confirmed 03/26/21 Active Procedures Procedure Date Related Diagnosis Body Site Status Colonoscopy 11/22/14 Completed Ventral Hernia Repair 01/17/12 Com pleted EGD - Esophagogastroduodenoscopy 1 06/12/08 Completed Oophorectomy- left 06/06/03 Comple mason Appendectomy 06/06/79 Completed Oophorectomy-right 06/06/79 Comple mason Cholecystectomy 06/06/73 Completed Total abdominal hysterectomy 06/06/71 Completed 1With biopsy for H Pylori, negative Vital Signs Most recent to oldest [Reference Range]: 1 2 3 Temperature Temporal Artery [36-38 Deg C] 37.4 Deg C (06/09/22 4:28 PM) 37.2 Deg C (06/09/22 3:20 PM) 37.2 Deg C (06/09/22 2:43 PM) Temperature Temporal Artery (DegF) [97.3-100 Deg F] 99.32 Deg F (06/09/22 4:28 PM) 98.96 Deg F (06/09/22 3:20 PM) 98.96 Deg F (06/09/22 2:43 PM) Peripheral Pulse Rate [60-100 bpm] 58 bpm *LOW* (06/09/22 2:33 PM) 58 bpm *LOW* (06/09/22 2:29 PM) Heart Rate Monitored [60-100 bpm] 57 bpm *LOW* (06/09/22 4:28 PM) 56 bpm *LOW* (06/09/22 3:20 PM) 60 bpm (06/09/22 2:43 PM) Respiratory Rate [12-24 br/min] 18 br/min (06/09/22 4:28 PM) 18 br/min (06/09/22 3:20 PM) 16 br/min (06/09/22 2:43 PM) Blood Pressure [90-140/60-90 mmHg] 124/52mmHg (06/09/22 4:28 PM) 134/51mmHg (06/09/22 3:20 PM) 129/55mmHg (06/09/22 2:43 PM) Mean Arterial Pressure, Cuff [65-140 mmHg] 76 mmHg (06/09/22 4:28 PM) 79 mmHg (06/09/22 3:20 PM) 80 mmHg (06/09/22 2:43 PM) Mean Arterial Pressure Cuff 79 mmHg (06/09/22 2:33 PM) 81 mmHg (06/09/22 2:29 PM) Blood Pressure Location Left arm (06/09/22 4:28 PM) Left arm (06/09/22 3:20 PM) Left arm (06/09/22 2:43 PM) Blood Pressure Method Automatic (06/09/22 4:28 PM) Automatic (06/09/22 3:20 PM) Automatic (06/09/22 2:43 PM) Social History Social History Type Response Tobacco Never tobacco user T obacco Use:. Sex Female Patient Care team information Personnel Name: Jeannine Fernandes MD Address: Address: [facility] [address] Name: Noreen York
--- OUTSIDE RECORDS SUMMARY | 2022-12-19 08:40 | XMS_ITS | Continuity of Care Document ---
Author Name Unknown Organization [facility] Address [address] [place] [address] Care Team Providers Care Bonded Structures Repairer Name Role Phone Jeannine Fernandes Primary Care Physician Noreen York Unavailable Unavailable Encounter [id number] Date(s): 09/17/22 - 09/17/22 [facility] [address] [place] [address] Discharge Disposition: Home Allergies, Adverse Reactions, Alerts Substance Reaction Severity Status codeine Rapid heart beat Unknown Active azithromycin Skin rash Unknown Active Assessment and Plan Future Appointments Future Scheduled Tests Laboratory* Comprehensive Metabolic Panel 07/02/22 * Magnesium Level 05/22/22 * Calcium Level Ionized 07/02/22 Immunizations Given and Recorded Vaccine Date Status [...] Daily, # 30 tab, 5 Refill(s), Pharmacy: [id number], 161, cm, 05/12/2220:25:00 EST, Height/Length Dosing, 77.5, kg, 05/12/22 20:25:00 EST, Weight Dosing Start Date: 05/15/22 Status: Ordered aspirin 81 mg oral tablet, chewable 81 mg = 1 tab, Oral, Daily, # 90 tab, 0 Refill(s), Pharmacy: [facility], 160, cm, 06/14/22 22:46:00 EST, Height/Length Dosing, 83, kg, 06/14/22 22:46:00 EST, Weight Dosing Start Date: 08/28/22 Status: Ordered atorvastatin 40 mg oral tablet 1 tab, Oral, Daily, # 84 tab, 0 Refill(s), Pharmacy: [id number], 160, cm, 06/14/22 22:46:00 EST, Height/Length Dosing, 83, kg, 06/14/22 22:46:00 EST, Weight Dosing Start Date: 08/24/22 Status: Ordered BD Pen Needle Mini U/F 31G X 5 MM MISC BD Pen Needle Mini U/F 31G X 5 MM MISC, See Instructions, USE FOUR TIMES A DAY DIRECTED, # 100 EA, 2 Refill(s), Pharmacy: [facility], 160, cm, 06/14/22 22:46:00 EST, Height/Length Dosing, 83, kg, 06/14/22 22:46:00 EST, Weight Dosing Start Date: 07/26/22 Status: Ordered BD UF MINI PEN NEEDLE [id number] BD UF MINI PEN NEEDLE [id number], See Instructions, USE DIRECTED FOUR TIMES A DAY NEEDED, # 100 EA, 3 Refill(s), Pharmacy: [facility] Start Date: 02/24/22 Status: Ordered BD UF Pen Needle Mini [id number] BD UF Pen Needle Mini [id number], Use one needle for each injection daily. (current Injections are 4 times daily), Supply, See instructions, # 100 EA, 2 Refill(s), Pharmacy: [facility] Start Date: 01/16/22 Status: Ordered doxycycline monohydrate 100 mg oral capsule 100 mg = 1 cap, Oral, every 12 hr, # 6 cap, 0 Refill(s), Pharmacy: [facility], 168, cm, 09/01/22 14:46:00 EDT, Height/Length Dosing, 66.2, kg, 09/01/22 14:46:00 EDT, Weight Dosing Start Date: 09/03/22 Stop Date: 09/06/22 Status: Ordered ferrous gluconate 324 mg (38 mg elemental iron) oral tablet 324 mg = 1 tab, Oral, Daily, # 90 tab, 0 Refill(s), Pharmacy: [facility], 160, cm, 08/31/22 11:50:00 EDT, Height/Length Dosing, 36.2, kg, 08/31/22 11:50:00 EDT, Weight Dosing Start Date: 09/01/22 Status: Ordered ferrous gluconate 324 mg (38 mg elemental iron) oral tablet 324 mg = 1 tab, Oral, Daily Start Date: 12/17/21 Status: Ordered folic acid 1 mg oral tablet 1 mg = 1 tab, Oral, Daily, # 90 tab, 0 Refill(s), Pharmacy: [facility], 160, cm, 08/31/22 11:50:00 EDT, Height/Length Dosing, 36.2, kg, 08/31/22 11:50:00 EDT, Weight Dosing Start Date: 09/01/22 Status: Ordered Glucerna Glucerna, Twice a day, Supply, See instructions, # 60 EA, 3 Refill(s), Pharmacy: [facility] Start Date: 07/13/22 Status: Ordered Levemir FlexTouch 100 units/mL subcutaneous solution 15 units =, Subcutaneous, every night at bedtime Start Date: 05/13/22 Status: Ordered magnesium oxide 400 mg (241.3 mg elemental magnesium) oral tablet 400 mg = 1 tab, Oral, BID, # 60 tab, 3 Refill(s), Pharmacy: [facility], 168, cm, 05/16/22 21:31:00 EST, Height/Length Dosing, 70, kg, 05/16/22 21:31:00 EST, Weight Dosing Start Date: 06/04/22 Status: Ordered Melatonin 3 mg oral tablet 3 mg 1 tab, Oral, every night at bedtime, # 30 tab, 0 Refill(s), Pharmacy: [facility], 160, cm, 06/14/22 22:46:00 EST, Height/Length Dosing, 83, kg, 06/14/22 22:46:00 EST, Weight Dosing Start Date: 08/31/22 Status: Ordered memantine 5 mg oral tablet 5 mg = 1 tab, Oral, BID Start Date: 12/17/21 Status: Ordered Metoprolol Succinate ER 25 mg oral tablet, extended release 25 mg = 1 tab, Oral, Daily, TAKE ONE TABLET BY MOUTH EVERY DAY, # 90 tab, 3 Refill(s), Pharmacy: [facility] Start Date: 01/01/22 Status: Ordered mupirocin 2% topical ointment See Instructions, APPLY A SMALL AMOUNT TOPICALLY TO AFFECTED AREA(S) THREE TIMES A DAY, # 22 g, 1 Refill(s), Pharmacy: [facility] Start Date: 03/23/22 Status: Ordered nitroglycerin 0.4 mg sublingual tablet 0.4 mg = 1 tab, SL, every 5 min, not to exceed 3 doses/15 min--if pain persists, seek medical attention, # 30 tab, 0 Refill(s), Pharmacy: [facility], 160, cm, 06/14/22 22:46:00 EST, Height/Length Dosing, 83, kg, 06/14/22 22:46:00 EST, We... Start Date: 06/18/22 Status: Ordered NovoLOG FlexPen 100 units/mL injectable solution 5 units =, Subcutaneous, TID(AC), # 10 mL, 0 Refill(s), Pharmacy: [facility], 168, cm, 05/16/22 21:31:00 EST, Height/Length Dosing, 70, kg, 05/16/22 21:31:00 EST, Weight Dosing Start Date: 06/04/22 Status: Ordered Onetouch Ultra Blue Test Strips Onetouch Ultra Blue Test Strips, use as directed four times daily, Supply, See instructions, # 300 EA, 12 Refill(s), Pharmacy: [facility] Start Date: 07/27/22 Status: Ordered oxybutynin 5 mg oral tablet 5 mg = 1 tab, Oral, BID, PRN as needed for urinary discomfort, 2-3 TIMES DAILY NEEDED, # 30 tab,0 Refill(s), Pharmacy: [facility], 168, cm, 05/16/22 21:31:00 EST, Height/Length Dosing, 70, kg, 05/16/22 21:31:00 EST, Weight Dosing Start Date: 06/04/22 Status: Ordered pantoprazole 40 mg oral delayed release tablet 40 mg = 1 tab, Oral, Daily Start Date: 05/13/22 Status: Ordered propranolol 20 mg oral tablet 3 tab, Oral, BID, # 168 tab, 0 Refill(s), Pharmacy: [id number], 160, cm, 06/14/22 22:46:00 EST, Height/Length Dosing, 83, kg, 06/14/22 22:46:00 EST, Weight Dosing Start Date: 08/24/22 Status: Ordered venlafaxine 150 mg oral capsule, extended release 150 mg = 1 cap, Oral, Daily, # 90 cap, 3 Refill(s), Pharmacy: [facility], 160, cm, 08/31/22 11:50:00 EDT, Height/Length Dosing, 36.2, kg, 08/31/22 11:50:00 EDT, Weight Dosing Start Date: 09/01/22 Status: Ordered Vitamin B2 100 mg oral tablet See Instructions, TAKE 1 TABLET BY MOUTH DAILY, # 84 tab, 2 Refill(s), Pharmacy: [id number], 168, cm, 09/01/22 14:46:00 EDT, Height/Length Dosing, 66.2, kg, 09/01/22 14:46:00 EDT, Weight Dosing Start Date: 09/03/22 Status: Ordered Vitamin C TR 500 mg oral capsule 1 cap, Oral, Daily, 0 Refill(s) Start Date: 12/17/21 Status: Ordered Problem List Condition Confirmation Course Effective Dates Status H ealth Status Informant Anemia Confirmed Active Anxiety Confirmed Active Atrial thrombus Confirmed Active Atrophic gastritis Confirmed Active Chest pain Confirmed Active Chronic kidney disease stage 4 Confirmed 04/18/19 Active 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 Procedures Procedure Date Related Diagnosis Body Site Status Colonoscopy 11/22/14 Completed Ventral Hernia Repair 01/17/12 Com pleted EGD - Esophagogastroduodenoscopy 1 06/12/08 Completed Oophorectomy- left 06/06/03 Comple mason Appendectomy 06/06/79 Completed Oophorectomy-right 06/06/79 Comple mason Cholecystectomy 06/06/73 Completed Total abdominal hysterectomy 06/06/71 Completed 1With biopsy for H Pylori, negative Social History Social History Type Response Tobacco Never tobacco user T obacco Use:. Sex Female Patient Care team information Care Team Personnel Name: Jeannine Fernandes MD Position: Physician Member Role: Informed Provider Address: Address: [place], [place] [id number] [place] [address] Name: Nithin Bellamy NP Position: Physician Member Role: Nurse Practitioner Address: Address: [address] Name: Noreen York Position: Ambulatory - RN/SMASH PIECER (Sanjay) Member Role: Solar Designer Name: [employer] DRAFTER Position: Physician Member Role: Nurse Practitioner Care Team Related Persons Name: MADY, ROMAN SPANN Address: [address] [phone] Name: ROMAN EARL Address: [address] [address] Address: [address] [phone]
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
--- OUTSIDE RECORDS SUMMARY | 2022-12-19 08:40 | XMS_ITS | Continuity of Care Document ---
Author Name Unknown Organization [facility] Address [address] [place] [address] Care Team Providers Care Hospitality Manager Name Role Phone Jeannine Fernandes Primary Care Physician Noreen York Unavailable Unavailable Encounter [facility]ENDING S[facility] Date(s): 04/09/22 - 04/09/22 [facility] [address] [place] [address] Discharge Disposition: Home or Self Care Attending Physician: Jeannine Fernandes MD Admitting Physician: Jeannine Fernandes MD Allergies, Adverse Reactions, Alerts Substance Reaction Severity Status codeine Rapid heart beat Unknown Active azithromycin Skin rash Unknown Active Assessment and Plan Future Appointments Diagnostic Tests Pending * Urine Culture 04/09/22 Immunizations Given and Recorded Vaccine Date Status Refusal Reason influenza virus vaccine, inactivated 04/09/22 Give n influenza virus vaccine, inactivated 04/21/13 Amuary rded influenza virus vaccine, inactivated 03/21/12 Amaury [...] corded varicella virus vaccine 06/07/00 Recorded Medications BD PEN NEEDLE/MINI/ULTRA- [id number] MIS BD PEN NEEDLE/MINI/ULTRA- [id number] MIS, 0 Refill(s) Start Date: 12/17/21 Status: Ordered BD UF MINI PEN NEEDLE [id number] BD UF MINI PEN NEEDLE [id number], See Instructions, USE DIRECTED FOUR TIMES A DAY NEEDED, # 100 EA, 3 Refill(s), Pharmacy: [facility] Start Date: 02/24/22 Status: Ordered BD UF MINI PEN NEEDLE [id number] USE DIRECTED FOUR TIMES A DAY NEEDED Start Date: 12/17/21 Status: Ordered BD UF Pen Needle Mini [id number] BD UF Pen Needle Mini [id number], Use one needle for each injection daily. (current Injections are 4 times daily), Supply, See instructions, # 100 EA, 2 Refill(s), Pharmacy: [facility] Start Date: 01/16/22 Status: Ordered ferrous gluconate 324 mg (38 mg elemental iron) oral tablet TAKE ONE TABLET BY MOUTH EVERY DAY Start Date: 12/17/21 Status: Ordered Levemir FlexTouch 100 units/mL subcutaneous solution 15 units =, Subcutaneous, Daily, INJECT 15 UNITS AT BEDTIME DAILY, # 15 mL, 3 Refill(s), Pharmacy: [facility] Start Date: 04/09/22 Status: Ordered loperamide 2 mg oral capsule TAKE ONE CAPSULE BY MOUTH EVERY 12 HOURS NEEDED Start Date: 12/17/21 Status: Ordered memantine 5 mg oral tablet TAKE ONE TABLET BY MOUTH TWICE A DAY Start Date: 12/17/21 Status: Ordered Metoprolol Succinate ER 25 mg oral tablet, extended release 25 mg = 1 tab, Oral, Daily, TAKE ONE TABLET BY MOUTH EVERY DAY, # 90 tab, 3 Refill(s), Pharmacy: [facility] Start Date: 01/01/22 Status: Ordered mupirocin 2% topical ointment See Instructions, APPLY A SMALL AMOUNT TOPICALLY TO AFFECTED AREA(S) THREE TIMES A DAY, # 22 g, 1 Refill(s), Pharmacy: [facility] Start Date: 03/23/22 Status: Ordered nitroglycerin 0.[address] ONE TABLET UNDER THE TONGUE EVERY 5 MINUTES FOR UP TO 3 DOSES NEEDED FOR CHEST PAIN. IF CHEST PAIN STILL PERSISTS CONTACT 911 Start Date: 12/17/21 Status: Ordered NovoLOG FlexPen 100 units/mL injectable solution 5 units =, Subcutaneous, TID(AC), # 10 mL, 0 Refill(s), Pharmacy: [facility] Start Date: 04/09/22 Status: Ordered Onetouch Ultra Blue Test Strips Onetouch Ultra Blue Test Strips, use as directed four times daily, Supply, See instructions, # 300 EA, 12 Refill(s), Pharmacy: [facility] Start Date: 12/11/21 Status: Ordered oxybutynin 5 mg oral tablet 1 (one) Tablet: 2-3 TIMES DAILY NEEDED, 0 Refill(s) Start Date: 12/17/21 Status: Ordered pantoprazole 40 mg oral delayed release tablet 40 mg = 1 tab, Oral, Daily, TAKE ONE TABLET BY MOUTH EVERY DAY, # 90 tab, 3 Refill(s), Pharmacy: [facility] Start Date: 01/01/22 Status: Ordered propranolol 20 mg oral tablet 60 mg = 3 tab, Oral, BID, # 180 tab, 3 Refill(s), Pharmacy: [facility] Start Date: 11/07/21 Status: Ordered venlafaxine 150 mg oral capsule, extended release TAKE ONE CAPSULE BY MOUTH EVERY DAY Start Date: 12/17/21 Status: Ordered Vitamin B2 100 mg oral tablet 1 tab, Oral, Daily, # 90 tab, 1 Refill(s), Pharmacy: [facility] Start Date: 03/23/22 Status: Ordered Vitamin C TR 500 mg [...] Pylori, negative Results Laboratory List Name Date Comprehensive Metabolic Panel (CMP) 04/09 Hemoglobin A1c 04/09/22 Automated Diff 04/09/22 CBC w/ Diff 04/09/22 Urinalysis Microscopic 04/09/22 Urinalysis with Microscopic 04/09/22 Most recent to oldest [Reference Range]: 1 WBC [5.0-10.0 x10^3/mcL] 8.2 x10^3/mcL (04/09/22 1:15 PM) RBC [4.1-5.3 x10^6/mcL] 3.8 x10^6/mcL *LOW* (04/09/22 1:15 PM) Neutro Auto [40.0-75.0 %] 67.0 % (04/09/22 1:15 PM) Lymph Auto [20.0-50.0 %] 19.6 % *LOW* (04/09/22 1:15 PM) Mcmullen Auto [2.0-15.0 %] 6.9 % (04/09/22 1:15 PM) Basophil Auto [0.0-1.0 %] 0.8 % (04/09/22 1:15 PM) BUN [7-18 mg/dL] 48 mg/dL *HI* (04/09/22 1:41 PM) UA Color Yellow (04/09/22 12:32 PM) UA WBC [0-3] 3-5 *ABN* (04/09/22 12:32 PM) Glucose Level [74-106 mg/dL] 158 mg/dL *HI* (04/09/22 1:41 PM) Potassium Level [3.5-5.1 mmol/L] 4.5 mmo l/L (04/09/22 1:41 PM) MCV [80.0-96.0] 97.9 *HI* (04/09/22 1:15 PM) UA Urobilinogen Normal (04/09/22 12:32 PM) UA Bili [Negative] Negative (04/09/22 12:32 PM) UA Ketones Negative (04/09/22 12:32 PM) AST [15-37 unit/L] 11 unit/L *LOW* (04/09/22 1:41 PM) ALT [14-59 unit/L] 9 unit/L *LOW* (04/09/22 1:41 PM) MCHC [31.0-35.0 g/dL] 32.5 g/dL (04/09/22 1:15 PM) UA Ca Ox Crystal Few /HPF (04/09/22 12:32 PM) Sodium Level [136-145 mmol/L] 138 mmol/L (04/09/22 1:41 PM) UA RBC [0-2] 0-2 (04/09/22 12:32 PM) UA Leuk Est 1+ *ABN* (04/09/22 12:32 PM) UA Gran Cast Rare /HPF (04/09/22 12:32 PM) UA Nitrite Positive *ABN* (04/09/22 12:32 PM) UA Glucose [Negative] Trace *ABN* (04/09/22 12:32 PM) Hct [37.0-47.0 %] 37.5 % (04/09/22 1:15 PM) UA Bacteria Moderate /HPF *ABN* (04/09/22 12:32 PM) Calcium Level [8.5-10.1 mg/dL] 11.3 mg/d L *HI* (04/09/22 1:41 PM) Albumin Level [3.4-5.0 g/dL] 3.6 g/dL (04/09/22 1:41 PM) Protein Total [6.4-8.2 g/dL] 7.3 g/dL (04/09/22 1:41 PM) UA Protein 2+ *ABN* (04/09/22 12:32 PM) MCH [26.0-32.0 pg] 31.9 pg (04/09/22 1:15 PM) Neutro Absolute 5.5 x10^3/mcL *NA* (04/09/22 1:15 PM) Bilirubin Total [0.2-1.0 mg/dL] 0.6 mg/d L (04/09/22 1:41 PM) Hgb [12.0-16.0 g/dL] 12.2 g/dL (04/09/22 1:15 PM) Alk Phos [46-146 unit/L] 78 unit/L (04/09/22 1:41 PM) UA Blood Negative (04/09/22 12:32 PM) UA Mucous None Seen /HPF (04/09/22 12:32 PM) UA Spec Grav >=1.030 *NA* (04/09/22 12:32 PM) Platelets [130-450 x10^3/mcL] 133 x10^3/ mcL (04/09/22 1:15 PM) CO2 [21-32 mmol/L] 27 mmol/L (04/09/22 1:41 PM) UA Squam Epithelial [None Seen] Rare (04/09/22 12:32 PM) UA pH 5.5 *NA* (04/09/22 12:32 PM) eGFR Non-AA [>=60] 19 *LOW* (04/09/22 1:41 PM) eGFR AA [>=60] 19 *LOW* (04/09/22 1:41 PM) UA Appear Hazy *ABN* (04/09/22 12:32 PM) Hemoglobin A1c [4.0-6.0 %] 8.1 % *HI* (04/09/22 1:41 PM) Chloride Level [98-107 mmol/L] 98 mmol/L (04/09/22 1:41 PM) RDW-CV [11.7-17.0 %] 13.3 % (04/09/22 1:15 PM) Imm Gran Auto [0.0-0.9 %] 0.4 % (04/09/22 1:15 PM) UA Culture Ind?. Not Applicable (04/09/22 12:32 PM) Creatinine Level [0.55-1.02 mg/dL] 2.59 mg/dL *HI* (04/09/22 1:41 PM) Eos, Auto [1.0-6.0 %] 5.3 % (04/09/22 1:15 PM) Social History Social History Type Response Tobacco Never tobacco user T obacco Use:. Sex Female Patient Care team information Personnel Name: Jeannine Fernandes MD Address: Address: [facility] [place], [place] [address] Name: Noreen York
--- OUTSIDE RECORDS SUMMARY | 2022-12-19 08:40 | XMS_ITS | Continuity of Care Document ---
Author Name Unknown Organization [facility] Address [address] [place] [address] Care Team Providers Care Bilingual Customer Service Name Role Phone Jeannine Fernandes Primary Care Physician Noreen York Unavailable Unavailable Encounter [facility] Date(s): 11/25/22 - 11/25/22 [facility] [address] [place] [address] Discharge Disposition: Home Allergies, Adverse Reactions, Alerts Substance Reaction Severity Status codeine Rapid heart beat Unknown Active azithromycin Skin rash Unknown Active Assessment and Plan Future Appointments Future Scheduled Tests Laboratory* CBC w/ Diff 11/24/22 * Comprehensive Metabolic Panel 11/24/22 * Magnesium Level 05/22/22 * Calcium Level Ionized 11/24/22 Radiology* NM Bone Imaging Whole Body 11/25/22 Immunizations Given and Recorded Vaccine Date Status [...] Daily, # 90 tab, 3 Refill(s), Pharmacy: [facility] , 168, cm, 09/23/22 17:19:00 EDT, Height/Length Dosing, 64.1, kg, 09/23/22 17:19:00 EDT, Weight Dosing Start Date: 10/20/22 Status: Ordered aspirin 81 mg oral tablet, chewable 1 tab, Oral, Daily, # 28 EA, 11 Refill(s), Pharmacy: [facility], 168, cm, 11/11/22 10:49:00 EDT, Height/Length Dosing, 62, kg, 11/11/22 10:49:00 EDT, Weight Dosing Start Date: 11/16/22 Status: Ordered atorvastatin 40 mg oral tablet 1 tab, Oral, Daily, # 84 tab, 0 Refill(s), Pharmacy: [facility], 160, cm, 06/14/22 22:46:00 EST, Height/Length Dosing, 83, kg, 06/14/22 22:46:00 EST, Weight Dosing Start Date: 08/24/22 Status: Ordered BD Pen Needle Mini U/F 31G X 5 MM MISC BD Pen Needle Mini U/F 31G X 5 MM MISC, See Instructions, USE FOUR TIMES A DAY DIRECTED, # 100 EA, 2 Refill(s), Pharmacy: [facility], 160, cm, 06/14/22 22:46:00 EST, Height/Length Dosing, 83, kg, 06/14/22 22:46:00 EST, Weight Dosing Start Date: 07/26/22 Status: Ordered BD UF MINI PEN NEEDLE [id number] BD UF MINI PEN NEEDLE [id number], See Instructions, USE DIRECTED FOUR TIMES A DAY NEEDED, # 100 EA, 3 Refill(s), Pharmacy: [facility] Start Date: 02/24/22 Status: Ordered BD UF Pen Needle Mini [id number] BD UF Pen Needle Mini [id number], Use one needle for each injection daily. (current Injections are 4 times daily), Supply, See instructions, # 100 EA, 2 Refill(s), Pharmacy: [facility] Start Date: 01/16/22 Status: Ordered Colace 100 mg oral capsule 100 mg = 1 cap, Oral, Daily, PRN as needed for constipation, # 90 cap, 0 Refill(s), [facility], [facility], cm, 09/23/22 17:19:00 EDT, Height/Length Dosing, 64.1, kg, 09/23/22 17:19:00 EDT, Weight Dosing Start Date: 10/13/22 Status: Ordered ferrous gluconate 324 mg (38 mg elemental iron) oral tablet 1 tab, Oral, Daily, # 84 tab, 3 Refill(s), Pharmacy: [facility], 168, cm, 11/11/22 10:49:00 EDT, Height/Length Dosing, 62, kg, 11/11/22 10:49:00 EDT, Weight Dosing Start Date: 11/16/22 Status: Ordered folic acid 1 mg oral tablet 1 tab, Oral, Daily, # 84 tab, 3 Refill(s), Pharmacy: [facility], 168, cm, 11/11/22 10:49:00 EDT, Height/Length Dosing, 62, kg, 11/11/22 10:49:00 EDT, Weight Dosing Start Date: 11/16/22 Status: Ordered Glucerna Glucerna, Twice a day, Supply, See instructions, # 60 EA, 3 Refill(s), [facility] Start Date: 07/13/22 Status: Ordered HumaLOG KwikPen 100 units/mL injectable solution 5 units =, Subcutaneous, TID(AC), # 3 mL, 3 Refill(s), Pharmacy: [facility], 167, cm,10/29/22 16:36:00 EDT, Height/Length Dosing, 64.86, kg, 10/29/22 16:36:00 EDT, Weight Dosing Start Date: 11/09/22 Status: Ordered Levemir FlexTouch 100 units/mL subcutaneous solution 15 units =, Subcutaneous, every night at bedtime Start Date: 05/13/22 Status: Ordered magnesium oxide 400 mg (241.3 mg elemental magnesium) oral tablet 1 tab, Oral, BID, # 56 tab, 3 Refill(s), Pharmacy: [facility] [id number], 168, cm, 09/01/22 14:46:00 EDT, Height/Length Dosing, 66.2, kg, 09/01/22 14:46:00 EDT, Weight Dosing Start Date: 09/22/22 Status: Ordered Melatonin 3 mg oral tablet 1 tab, Oral, every night at bedtime, # 28 tab, 3 Refill(s), Pharmacy: [facility] [address], 168, cm, 09/01/22 14:46:00 EDT, Height/Length Dosing, 66.2, kg, 09/01/22 14:46:00 EDT, Weight Dosing Start Date: 09/22/22 Status: Ordered memantine 5 mg oral tablet 5 mg = 1 tab, Oral, BID, # 60 tab, 5 Refill(s), Pharmacy: [facility], 168, cm, 09/23/22 17:19:00 EDT, Height/Length Dosing, 64.1, kg, 09/23/22 17:19:00 EDT, Weight Dosing Start Date: 10/23/22 Status: Ordered Metoprolol Succinate ER 25 mg oral tablet, extended release 1 tab, Oral, Daily, # 28 tab, 11 Refill(s), Pharmacy: [facility] [id number], 168, cm, 11/11/22 10:49:00 EDT, Height/Length Dosing, 62, kg, 11/11/22 10:49:00 EDT, Weight Dosing Start Date: 11/16/22 Status: Ordered MiraLax oral powder for reconstitution 17 g, Oral, Daily, PRN constipation, # 12 EA, 5 Refill(s), Pharmacy: [facility], 168,cm, 09/23/22 17:19:00 EDT, Height/Length Dosing, 64.1, kg, 09/23/22 17:19:00 EDT, Weight Dosing Start Date: 10/23/22 Status: Ordered mupirocin 2% topical ointment See Instructions, APPLY A SMALL AMOUNT TOPICALLY TO AFFECTED AREA(S) THREE TIMES A DAY, # 22 g, 1 Refill(s), Pharmacy: [facility] Start Date: 03/23/22 Status: Ordered nitroglycerin 0.4 mg sublingual tablet 0.4 mg = 1 tab, SL, every 5 min, not to exceed 3 doses/15 min--if pain persists, seek medical attention, # 30 tab, 0 Refill(s), Pharmacy: [facility], 160, cm, 06/14/22 22:46:00 EST, Height/Length Dosing, 83, kg, 06/14/22 22:46:00 EST, We... Start Date: 06/18/22 Status: Ordered Onetouch Ultra Blue Test Strips [...] pantoprazole 40 mg oral delayed release tablet 1 tab, Oral, Daily, # 28 tab, 11 Refill(s), Pharmacy: [facility] [address], 168, cm, 11/11/22 10:49:00 EDT, Height/Length Dosing, 62, kg, 11/11/22 10:49:00 EDT, Weight Dosing Start Date: 11/16/22 Status: Ordered propranolol 20 mg oral tablet 3 tab, Oral, BID, # 180 tab, 5 Refill(s), Pharmacy: [facility], 168, cm, 09/23/22 17:19:00 EDT, Height/Length Dosing, [...] DAILY, # 84 tab, 2 Refill(s), Pharmacy: [facility] [id number], 168, cm, 09/01/22 14:46:00 EDT, Height/Length Dosing, [...] Chest pain Confirmed Active Chronic kidney disease Confirmed Active Chronic kidney disease stage 4 3 Confirmed 04/18/19 Active 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 Delirium Confirmed 04/18/19 Active Depressive disorder 4 Confirmed Active Disease caused by 2019 novel coronavirus 5 Confirmed 08/31/22 Active Essential tremor 6 Confirmed Active Gastroesophageal reflux disease Confirmed Active GI bleed Confirmed Active Hypercalcemia Confirmed Active Hyperlipidemia Confirmed Active Hyperosmolality Confirmed 04/18/19 Active Hypertensive disorder Confirmed Active Idiopathic osteoarthritis 7 Confirmed Active Irritable bowel syndrome with diarrhea 8 Confirmed Active Migraine Confirmed Active Obesity Confirmed Active Posttraumatic stress disorder Confirmed Active Imaging abnormality Confirmed Active Recurrent major depression 9 Confirmed Active Renal mass 10 Confirmed 04/11/19 Active Type 2 diabetes mellitus without complication 11 Confirmed 12/26/19 Active Unintended weight loss Confirmed Active Urinary incontinence 12 Confirmed Active Urinary tract infectious disease 13 Confirmed 03/26/21 [facility]: Stable, monitor, c/w iron supplementation. 2From 07-11-2018 visit: Recommend trialing to cut down on pantoprazole as tolerated. Can cut pills in half versus alternating every other day. [facility] visit: Renal decline has slowed and is now presumably stable. We discussed hydration and avoidance of nephrotoxic agents. We will continue to monitor renal function. [facility] visit: Well controlled, c/w venlafaxine 150 mg QD. Pt was on both venlafaxine and amitrytyline but this was dc'ed due to risk of serotonin syndrome. Mood at baseline. 5Problem added by Rule (IC_COVID19_AUTO_PROBLEM) following SARS-CoV-2 (COVID- 19)/Flu/RSV (GeneXpert)from Nasal Swab collected on 31-AUG-2022 11:58:00 EDT tested positive for COVID-19. [facility] visit: Improvement w/ propanolol, which also [...] Physician Member Role: Informed Provider Address: Address: [address] Name: Nithin Bellamy TREAD BOOKER Position: Physician Member Role: Nurse Practitioner Address: Address: [address] Name: Noreen York Position: Ambulatory - RN/CLOTH PRESSER ([facility]) Member Role: Line Maintainer Name: [employer]upo Walters TREAD BOOKER Position: Physician Member Role: Nurse Practitioner Care Team Related Persons Name: ROMAN EARL Address: [place] [address] Address: [address] [phone] Name: ROMAN EARL Address: [address] [place] [address]: [address] [phone]
--- OUTSIDE RECORDS SUMMARY | 2022-12-19 08:40 | XMS_ITS | Continuity of Care Document ---
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 Name Role Phone Jeannine Fernandes Primary Care Physician Noreen York Unavailable Unavailable Encounter [facility] Date(s): 05/12/22 - 05/15/22 [facility] [address] [place] [address] us Encounter Diagnosis Chest pain(Discharge Diagnosis) - 05/12/22 Anemia(Discharge Diagnosis) - 05/14/22 Hypertensive disorder(Discharge Diagnosis) - 05/14/22 Type 2 diabetes mellitus without complication(Discharge Diagnosis) - 05/14/22 Anxiety(Discharge Diagnosis) - 05/14/22 Aortic stenosis(Discharge Diagnosis) - 05/15/22 Discharge Disposition: Home or Self Care Attending Physician: Amandeep Caro DO Admitting Physician: Amandeep Caro DO Allergies, Adverse Reactions, Alerts Substance Reaction Severity [...] * Urinalysis Notify Lab 05/07/22 Functional Status 05/15/22 Lunch Percent 50 05/15/22 Breakfast Percent 75 05/14/22 Living Environment No Living Environmen t Information Available Lives In Apartment Lives With Alone Living Situation Home with day care 1 Patient's 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 Home Care Aids 5x/week. 2Result Comment: meals on wheels 2 times/week. [facility] 5x/week Immunizations Given and Recorded Vaccine Date Status [...] Daily, # 30 tab, 5 Refill(s), Pharmacy: [facility], 161, cm, 05/12/2220:25:00 EST, Height/Length Dosing, 77.5, kg, 05/12/22 20:25:00 EST, Weight Dosing Start Date: 05/15/22 Status: Ordered aspirin 81 mg oral tablet, chewable 81 mg = 1 tab, Oral, Daily, # 90 tab, 1 Refill(s), Pharmacy: [facility], 161, cm, 05/12/22 20:25:00 EST, Height/Length Dosing, 77.5, kg, 05/12/22 20:25:00 EST, Weight Dosing Start Date: 05/15/22 Status: Ordered atorvastatin 40 mg oral tablet 40 mg = 1 tab, Oral, Daily Start Date: 05/04/22 Status: Ordered BD UF MINI PEN NEEDLE [id number] BD UF MINI PEN NEEDLE [id number], See Instructions, USE DIRECTED FOUR TIMES A DAY NEEDED, # 100 EA, 3 Refill(s), Pharmacy: [facility] Start Date: 02/24/22 Status: Ordered BD UF Pen Needle Mini [id number] BD UF Pen Needle Mini [id number], Use one needle for each injection daily. (current Injections are 4 times daily), Supply, See instructions, # 100 EA, 2 Refill(s), Pharmacy: [facility] Start Date: 01/16/22 Status: Ordered ferrous [...] BID, # 60 tab, 0 Refill(s), Pharmacy: [facility], 161, cm, 05/12/2220:25:00 EST, Height/Length Dosing, [...] DAY, # 90 tab, 3 Refill(s), Pharmacy: [facility] Start Date: 01/01/22 Status: Ordered mupirocin 2% topical ointment See Instructions, APPLY A SMALL AMOUNT TOPICALLY TO AFFECTED AREA(S) THREE TIMES A DAY, # 22 g, 1 Refill(s), Pharmacy: [facility] Start Date: 03/23/22 Status: Ordered nitroglycerin [...] instructions, # 300 EA, 12 Refill(s), Pharmacy: [facility] Start Date: 12/11/21 Status: Ordered oxybutynin [...] Pylori, negative Results Laboratory List Name Date Glucose POCT 05/15/22 PTT 05/15/22 Glucose POCT 05/15/22 Basic Metabolic Panel 05/15/22 CBC w/o Diff 05/15/22 Magnesium Level 05/15/22 Glucose POCT 05/14/22 Troponin-I 05/14/22 Magnesium Level 05/14/22 Troponin-I 05/14/22 Basic Metabolic Panel 05/14/22 CBC w/o Diff 05/14/22 Magnesium Level 05/14/22 PTT 05/14/22 Troponin-I 05/13/22 PTT 05/13/22 Blood Glucose Monitoring POC 05/13/22 Basic Metabolic Panel 05/13/22 CBC w/o Diff 05/13/22 Hemoglobin A1c 05/13/22 Lipid Panel 05/13/22 TSH w/ Rflx to Free T4 05/13/22 SARS-CoV-2 (COVID-19)/Flu/RSV (GeneXpert ) 05/13/22 Comprehensive Metabolic Panel (CMP) 05/12 NT- Pro BNP 05/12/22 PT/ INR 05/12/22 Automated Diff 05/12/22 Most recent to oldest [Reference Range]: 1 2 3 WBC [5.0-10.0 x10^3/mcL] 5.6 x10^3/mcL (05/15/22 7:00 AM) 5.4 x10^3/mcL (05/14/22 7:34 AM) 5.9 x10^3/mcL (05/13/22 10:00 AM) RBC [4.1-5.3 x10^6/mcL] 3.4 x10^6/mcL *LOW* (05/15/22 7:00 AM) 3.2 x10^6/mcL *LOW* (05/14/22 7:34 AM) 3.5 x10^6/mcL *LOW* (05/13/22 10:00 AM) Neutro Auto [40.0-75.0 %] 60.1 % (05/12/22 8:43 PM) Lymph Auto [20.0-50.0 %] 24.9 % (05/12/22 8:43 PM) Amador Auto [2.0-15.0 %] 9.6 % (05/12/22 8:43 PM) Basophil Auto [0.0-1.0 %] 0.6 % (05/12/22 8:43 PM) Prothrombin Time [9.0-11.0 seconds] 10.6 seconds (05/12/22 8:43 PM) INR 1.0 *NA* (05/12/22 8:43 PM) BUN [7-18 mg/dL] 32 mg/dL *HI* (05/15/22 7:00 AM) 29 mg/dL *HI* (05/14/22 7:34 AM) 31 mg/dL *HI* (05/13/22 10:00 AM) Glucose POC [74-106 mg/dL] 244 mg/dL *HI* (05/15/22 11:41 AM) 108 mg/dL *HI* (05/15/22 7:36 AM) 174 mg/dL *HI* (05/14/22 10:33 PM) Cholesterol Total [50-200 mg/dL] 224 mg/dL *HI* (05/13/22 10:00 AM) Whole Blood Glucose - Manual Entry [74-106 mmol/L] 275 mmol/L *HI* (05/13/22 11:30 AM) LDL [0-130 mg/dL] 145 mg/dL *HI* (05/13/22 10:00 AM) Glucose Level [74-106 mg/dL] 114 mg/dL *HI* (05/15/22 7:00 AM) 169 mg/dL *HI* (05/14/22 7:34 AM) 226 mg/dL *HI* (05/13/22 10:00 AM) Potassium Level [3.5-5.1 mmol/L] 4.1 mmol/L (05/15/22 7:00 AM) 3.6 mmol/L (05/14/22 7:34 AM) 5.0 mmol/L (05/13/22 10:00 AM) MCV [80.0-96.0] 95.6 (05/15/22 7:00 AM) 97.5 *HI* (05/14/22 7:34 AM) 98.9 *HI* (05/13/22 10:00 AM) HDL [40-60 mg/dL] 57 mg/dL (05/13/22 10:00 AM) AST [15-37 unit/L] 10 unit/L *LOW* (05/12/22 8:43 PM) ALT [14-59 unit/L] 9 unit/L *LOW* (05/12/22 8:43 PM) MCHC [31.0-35.0 g/dL] 32.5 g/dL (05/15/22 7:00 AM) 31.8 g/dL (05/14/22 7:34 AM) 31.4 g/dL (05/13/22 10:00 AM) Troponin-I [0.0-51.4 pg/mL] 32.6 pg/mL (05/14/22 3:13 PM) 30.5 pg/mL (05/14/22 11:24 AM) 29.8 pg/mL (05/13/22 4:42 PM) Sodium Level [136-145 mmol/L] 139 mmol/L (05/15/22 7:00 AM) 141 mmol/L (05/14/22 7:34 AM) 140 mmol/L (05/13/22 10:00 AM) Hct [37.0-47.0 %] 32.9 % *LOW* (05/15/22 7:00 AM) 31.1 % *LOW* (05/14/22 7:34 AM) 35.0 % *LOW* (05/13/22 10:00 AM) Triglycerides [0-150 mg/dL] 109 mg/dL (05/13/22 10:00 AM) Partial Thromboplastin Time [22-35 seconds] 22 seconds (05/15/22 9:10 AM) 22 seconds (05/14/22 7:34 AM) 55 seconds *HI* (05/13/22 12:15 PM) Calcium Level [8.5-10.1 mg/dL] 10.5 mg/dL *HI* (05/15/22 7:00 AM) 10.1 mg/dL (05/14/22 7:34 AM) 10.9 mg/dL *HI* (05/13/22 10:00 AM) Albumin Level [3.4-5.0 g/dL] 3.5 g/dL (05/12/22 8:43 PM) Protein Total [6.4-8.2 g/dL] 7.2 g/dL (05/12/22 8:43 PM) MCH [26.0-32.0 pg] 31.1 pg (05/15/22 7:00 AM) 31.0 pg (05/14/22 7:34 AM) 31.1 pg (05/13/22 10:00 AM) Magnesium Level [1.8-2.4 mg/dL] 1.6 mg/dL *LOW* (05/15/22 7:00 AM) 1.0 mg/dL *LOW* (05/14/22 11:24 AM) 1.0 mg/dL *LOW* (05/14/22 7:34 AM) Neutro Absolute 4.1 x10^3/mcL *NA* (05/12/22 8:43 PM) Bilirubin Total [0.2-1.0 mg/dL] 0.6 mg/dL (05/12/22 8:43 PM) Hgb [12.0-16.0 g/dL] 10.7 g/dL *LOW* (05/15/22 7:00 AM) 9.9 g/dL *LOW* (05/14/22 7:34 AM) 11.0 g/dL *LOW* (05/13/22 10:00 AM) Alk Phos [46-146 unit/L] 73 unit/L (05/12/22 8:43 PM) Platelets [130-450 x10^3/mcL] 100 x10^3/mcL *LOW* (05/15/22 7:00 AM) 139 x10^3/mcL (05/14/22 7:34 AM) 151 x10^3/mcL (05/13/22 10:00 AM) CO2 [21-32 mmol/L] 29 mmol/L (05/15/22 7:00 AM) 28 mmol/L (05/14/22 7:34 AM) 30 mmol/L (05/13/22 10:00 AM) TSH [0.358-3.740 mcIntlUnit/mL] 2.870 mcIntlUnit/mL (05/13/22 10:00 AM) eGFR Non-AA [>=60] 21 *LOW* (05/15/22 7:00 AM) 20 *LOW* (05/14/22 7:34 AM) 18 *LOW* (05/13/22 10:00 AM) eGFR AA [>=60] 21 *LOW* (05/15/22 7:00 AM) 20 *LOW* (05/14/22 7:34 AM) 18 *LOW* (05/13/22 10:00 AM) Hemoglobin A1c [4.0-6.0 %] 7.6 % *HI* (05/13/22 10:00 AM) NT-proBNP [0-450 pg/mL] 4387 pg/mL *HI* (05/12/22 8:43 PM) Chloride Level [98-107 mmol/L] 103 mmol/L (05/15/22 7:00 AM) 103 mmol/L (05/14/22 7:34 AM) 102 mmol/L (05/13/22 10:00 AM) RDW-CV [11.7-17.0 %] 13.9 % (05/15/22 7:00 AM) 13.8 % (05/14/22 7:34 AM) 14.2 % (05/13/22 10:00 AM) Imm Gran Auto [0.0-0.9 %] 0.7 % (05/12/22 8:43 PM) Creatinine Level [0.55-1.02 mg/dL] 2.31 mg/dL *HI* (05/15/22 7:00 AM) 2.40 mg/dL *HI* (05/14/22 7:34 AM) 2.58 mg/dL *HI* (05/13/22 10:00 AM) Employed in healthcare? Unknown *NA* (05/13/22 2:16 AM) Symptomatic as defined by CDC? Unknown *NA* (05/13/22 2:16 AM) Hospitalized due to COVID-19? Unknown *NA* (05/13/22 2:16 AM) In ICU? Unknown *NA* (05/13/22 2:16 AM) Group care resident? Unknown *NA* (05/13/22 2:16 AM) status? Unknown *NA* (05/13/22 2:16 AM) SARS-CoV-2(Covid19)PCR(GXpe rt COVFLURSV) [Negative] Negative (05/13/22 2:16 AM) Flu A (GXpert COVFLURSV) [Negative] Negative (05/13/22 2:16 AM) RSV (GXpert COVFLURSV) [Negative] Negative (05/13/22 2:16 AM) Flu B (GXpert COVFLURSV) [Negative] Negative (05/13/22 2:16 AM) Eos, Auto [1.0-6.0 %] 4.1 % (05/12/22 8:43 PM) Vital Signs Most recent to oldest [Reference Range]: 1 2 3 Temperature Temporal Artery [36-38 Deg C] 36.6 Deg C (05/15/22 11:10 AM) 36.9 Deg C (05/15/22 7:05 AM) 37.2 Deg C (05/14/22 6:29 PM) Peripheral Pulse Rate [60-100 bpm] 62 bpm (05/15/22 11:10 AM) 63 bpm (05/15/22 7:05 AM) 65 bpm (05/14/22 6:29 PM) Heart Rate Monitored [60-100 bpm] 62 bpm (05/13/22 2:21 PM) 64 bpm (05/13/22 12:15 PM) 65 bpm (05/13/22 11:05 AM) Respiratory Rate [12-24 br/min] 18 br/min (05/15/22 11:10 AM) 18 br/min (05/15/22 7:05 AM) 16 br/min (05/14/22 6:29 PM) Blood Pressure [90-140/60-90 mmHg] 119/58mmHg (05/15/22 11:10 AM) 152/74mmHg *HI* (05/15/22 7:05 AM) 167/76mmHg *HI* (05/14/22:29 PM) Mean Arterial Pressure Cuff 66 mmHg (05/15/22 11:10 AM) 97 mmHg (05/15/22 7:05 AM) 99 mmHg (05/14/22 6:29 PM) Weight 75.5 kg (05/15/22 7:05 AM) 77.50 kg (05/13/22 4:56 PM) 77.50 kg (05/12/22 8:17 PM) Weight Dosing 77.50 kg (05/12/22 8:25 PM) Usual Weight 85.5 kg (05/13/22 4:56 PM) Height 161.000 cm (05/12/22 8:17 PM) Height/Length Dosing 161.000 cm (05/12/22 8:25 PM) Body Mass Index 30.000 kg/m2 (05/12/22 8:17 PM) Social History Social History Type Response Tobacco Never tobacco user T obacco Use:. Sex Female Hospital Discharge Instructions Patient Education 05/15/2022 09:55:33 Managing Anxiety, Adult Managing Anxiety, Adult After being diagnosed with an anxiety disorder, you may be relieved to know why you have felt or behaved a certain way. You may also feel overwhelmed about the treatment ahead and what it will mean for your life. With care and support, you can manage this condition and recover from it. How to manage lifestyle changes Managing stress and anxiety Stress is your body's reaction to life changes and events, both good and bad. Most stress will lastjust a few hours, but stress can be ongoing and can lead to more than just stress. Although stress can play a major role in anxiety, it is not the same as anxiety. Stress is usually caused by something external, such as a deadline, test, or competition. Stress normally passes after the triggering ev ent has ended. Anxiety is caused by something internal, such as imagining a terrible outcome or worrying that something will go wrong that will devastate you. Anxiety often does not go away even after the triggering event is over, and it can become long-term (chronic) worry. It is important to understand the differences between stress and anxiety and to manage your stress effectively so that it does not lead prem anxious response. Talk with your health care provider or a counselor to learn more about reducing anxiety and stress.He or she may suggest tension reduction techniques, such as: ??? Music therapy. This can include creating or listening to music that you enjoy and that inspiresyou. ??? Mindfulness-based meditation. This involves being aware of your normal breaths while not tryingto control your breathing. It can be done while sitting or walking. ??? Centering prayer. This involves focusing on a word, phrase, or sacred image that means something to you and brings you peace. ??? Deep breathing. To do this, expand your stomach and inhale slowly through your nose. Hold your breath for 3???5 seconds. Then exhale slowly, letting your stomach muscles relax. ??? Self-talk. This involves identifying thought patterns that lead to anxiety reactions and changing those patterns. ??? Muscle relaxation. This involves tensing muscles and then relaxing them. Choose a tension reduction technique that suits your lifestyle and personality. These techniques take time and practice. Set aside 5???15 minutes a day to do them. Therapists can offer counseling andtraining in these techniques. The training to help with anxiety may be covered by some insurance plans. Other things you can do to manage stress and anxiety include: ??? Keeping a stress/anxiety diary. This can help you learn what triggers your reaction and then learn ways to manage your response. ??? Thinking about how you react to certain situations. You may not be able to control everything, but you can control your response. ??? Making time for activities that help you relax and not feeling guilty about spending your time in this way. ??? Visual imagery and yoga can help you stay calm and relax. Medicines Medicines can help ease symptoms. Medicines for anxiety include: ??? Anti-anxiety drugs. ??? Antidepressants. Medicines are often used as a primary treatment for anxiety disorder. Medicines will be prescribed by a health care provider. When used together, medicines, psychotherapy, and tension reduction techniques may be the most effective treatment. Relationships Relationships can play a big part in helping you recover. Try to spend more time connecting with trusted friends and family members. Consider going to couples counseling, taking family education classes, or going to family therapy. Therapy can help you and others better understand your condition. How to recognize changes in your anxiety Everyone responds differently to treatment for anxiety. Recovery from anxiety happens when symptomsdecrease and stop interfering with your daily activities at home or work. This may mean that you will start to: ??? Have better concentration and focus. Worry will interfere less in your daily thinking. ??? Sleep better. ??? Be less irritable. ??? Have more energy. ??? Have improved memory. It is important to recognize when your condition is getting worse. Contact your health care provider if your symptoms interfere with home or work and you feel like your condition is not improving. Follow these instructions at home: Activity ??? Exercise. Most adults should do the following: ??? Exercise for at least 150 minutes each week. The exercise should increase your heart rate and make you sweat (moderate-intensity exercise). ??? Strengthening exercises at least twice a week. ??? Get the right amount and quality of sleep. Most adults need 7???9 hours of sleep each night. Lifestyle ??? Eat a healthy diet that includes plenty of vegetables, fruits, whole grains, low-fat dairy products, and lean protein. Do not eat a lot of foods that are high in solid fats, added sugars, or salt. ??? Make choices that simplify your life. ??? Do not use any products that contain nicotine or tobacco, such as cigarettes, e-cigarettes, andchewing tobacco. If you need help quitting, ask your health care provider. ??? Avoid caffeine, alcohol, and certain gurj-deg-jazwrix cold medicines. These may make you feel worse. Ask your pharmacist which medicines to avoid. General instructions ??? Take ytdi-vvl-rfqlfzf and prescription medicines only as told by your health care provider. ??? Keep all follow-up visits as told by your health care provider. This is important. Where to find support You can get help and support from these sources: ??? Self-help groups. ??? Online and community organizations. ??? A trusted spiritual leader. ??? Couples counseling. ??? Family education classes. ??? Family therapy. Where to find more information You may find that joining a support group helps you deal with your anxiety. The following sources can help you locate counselors or support groups near you: ??? Mental Health [place]: www.mentalhealthamerica.net ??? Anxiety and Depression Association of [place] (ADAA): www.adaa.org ??? National [place] on Mental Illness (ADIA): www.adia.org Contact a health care provider if you: ??? Have a hard time staying focused or finishing daily tasks. ??? Spend many hours a day feeling worried about everyday life. ??? Become exhausted by worry. ??? Start to have headaches, feel tense, or have nausea. ??? Urinate more than normal. ??? Have diarrhea. Get help right away if you have: ??? A racing heart and shortness of breath. ??? Thoughts of hurting yourself or others. If you ever feel like you may hurt yourself or others, or have thoughts about taking your own life,get help right away. You can go to your nearest emergency department or call: ??? Your local emergency services (911 in the [place] ??? A suicide crisis helpline, such as the National Suicide Prevention Lifeline at . This is open 24 hours a day. Summary ??? Taking steps to learn and use tension reduction techniques can help calm you and help prevent triggering an anxiety reaction. ??? When used together, medicines, psychotherapy, and tension reduction techniques may be the most effective treatment. ??? Family, friends, and partners can play a big part in helping you recover from an anxiety disorder. This information is not intended to replace advice given to you by your health care provider. Make sure you discuss any questions you have with your health care provider. Document Revised: 10/24/2019 Document Reviewed: 10/24/2019 [employer] Patient Education ?? 2021 [employer]. 05/15/2022 09:55:27 Nonspecific Chest Pain, Adult, Wjei-ak-Xqfl Nonspecific Chest Pain Chest pain can be caused by many different conditions. Some causes of chest pain can be life-threatening. These will require treatment right away. Serious causes of chest pain include: ??? Heart attack. ??? A tear in the body's main blood vessel. ??? Redness and swelling (inflammation) around your heart. ??? Blood clot in your lungs. Other causes of chest pain may not be so serious. These include: ??? Heartburn. ??? Anxiety or stress. ??? Damage to bones or muscles in your chest. ??? Lung infections. Chest pain can feel like: ??? Pain or discomfort in your chest. ??? Crushing, pressure, aching, or squeezing pain. ??? Burning or tingling. ??? Dull or sharp pain that is worse when you move, cough, or take a deep breath. ??? Pain or discomfort that is also felt in your back, neck, jaw, shoulder, or arm, or pain that spreads to any of these areas. It is hard to know whether your pain is caused by something that is serious or something that is not so serious. So it is important to see your doctor right away if you have chest pain. Follow these instructions at home: Medicines ??? Take sxhd-qlf-ifvwgrf and prescription medicines only as told by your doctor. ??? If you were prescribed an antibiotic medicine, take it as told by your doctor. Do not stop taking the antibiotic even if you start to feel better. Lifestyle ??? Rest as told by your doctor. ??? Do not use any products that contain nicotine or tobacco, such as cigarettes, e-cigarettes, andchewing tobacco. If you need help quitting, ask your doctor. ??? Do not drink alcohol. ??? Make lifestyle changes as told by your doctor. These may include: ??? Getting regular exercise. Ask your doctor what activities are safe for you. ??? Eating a heart-healthy diet. A diet and nutrition therapist (dietitian) can help you to learn healthy eating options. ??? Staying at a healthy weight. ??? Treating diabetes or high blood pressure, if needed. ??? Lowering your stress. Activities such as yoga and relaxation techniques can help. General instructions ??? Pay attention to any changes in your symptoms. Tell your doctor about them or any new symptoms. ??? Avoid any activities that cause chest pain. ??? Keep all follow-up visits as told by your doctor. This is important. You may need more testing if your chest pain does not go away. Contact a doctor if: ??? Your chest pain does not go away. ??? You feel depressed. ??? You have a fever. Get help right away if: ??? Your chest pain is worse. ??? You have a cough that gets worse, or you cough up blood. ??? You have very bad (severe) pain in your belly (abdomen). ??? You pass out (faint). ??? You have either of these for no clear reason: ??? Sudden chest discomfort. ??? Sudden discomfort in your arms, back, neck, or jaw. ??? You have shortness of breath at any time. ??? You suddenly start to sweat, or your skin gets clammy. ??? You feel sick to your stomach (nauseous). ??? You throw up (vomit). ??? You suddenly feel lightheaded or dizzy. ??? You feel very weak or tired. ??? Your heart starts to beat fast, or it feels like it is skipping beats. These symptoms may be an emergency. Do not wait to see if the symptoms will go away. Get medical help right away. Call your local emergency services (911 in the [place] Do not drive yourself to the hospital. Summary ??? Chest pain can be caused by many different conditions. The cause may be serious and need treatment right away. If you have chest pain, see your doctor right away. ??? Follow your doctor's instructions for taking medicines and making lifestyle changes. ??? Keep all follow-up visits as told by your doctor. This includes visits for any further testing if your chest pain does not go away. ??? Be sure to know the signs that show that your condition has become worse. Get help right away if you have these symptoms. This information is not intended to replace advice given to you by your health care provider. Make sure you discuss any questions you have with your health care provider. Document Revised: 08/07/2021 Document Reviewed: 08/07/2021 [employer] Patient Education ?? 2021 [employer]. 05/15/2022 09:55:15 Exercise Stress Test, Lpgc-[id number] Exercise Stress Test An exercise stress test is a test to check how your heart works during exercise. You will need to walk on a treadmill or ride an exercise bike for this test. An electrocardiogram (ECG) will record your heartbeat when you are at rest and when you are exercising. You may have an ultrasound or nucleartest after the exercise test. The test is done to check for coronary artery disease (CAD). It is also done to: ??? See how well you can exercise. ??? Watch for high blood pressure during exercise. ??? Test how well you can exercise after treatment. ??? Check the blood flow to your arms and legs. If your test result is not normal, more testing may be needed. What happens before the procedure? Follow instructions from your doctor about what you cannot eat or drink. ??? Do not have any drinks or foods that have caffeine in them for 24 hours before the test, or as told by your doctor. This includes coffee, tea (even decaf tea), sodas, chocolate, and cocoa. ??? Ask your doctor about changing or stopping your normal medicines. This is important if you: ??? Take diabetes medicines. ??? Take beta-sharon medicines. ??? Wear a nitroglycerin patch. ??? If you use an inhaler, bring it with you to the test. ??? Do not put lotions, powders, creams, or oils on your chest before the test. ??? Wear comfortable shoes and clothing. ??? Do not use any products that have nicotine or tobacco in them, such as cigarettes and e-cigarettes. Stop using them at least 4 hours before the test. If you need help quitting, ask your doctor. What happens during the procedure? Patches (electrodes) will be put on your chest. ??? Wires will be connected to the patches. The wires will send signals to a machine to record yourheartbeat. ??? Your heart rate will be watched while you are resting and while you are exercising. Your blood pressure will also be watched during the test. ??? You will walk on a treadmill or use an exercise bike. If you cannot use these, you may be askedto turn a crank with your hands. ??? The activity will get harder and will raise your heart rate. ??? You may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 Sit to Supine ??I Transfers: Activity Assistive Device Assistance Comments Sit to Stand ??FWW ??I Stand to Sit ??FWW ??I Bed to Chair Chair to Bed Shower Transfer Toilet Transfer Ambulation: Assistance Assistive Device Distance Comments ??SBA ??FWW ??180' ??Pt has no loss of balance during ambulation and exhibits good safety awareness with turning. Stairs: Assistance Assistive Device # Steps Comments Wheelchair Mobility: Assistance Distance Comments Balance: ?? Static Sitting: I ?Dynamic Sitting: I ?Static Standing: I ?Dynamic Standing: I Posture: fair with moderate thoracic kyphosis *Standardized Testing: Standardized Test: [facility] Functional Impairment Rating ? Score: 3 ? Comments: 15% functional mobility impairment *Patient Education: ??Need to stay active in her home during the winter to avoid deconditioning. *Physical Therapy Assessment: Maria Ines is a 77 year old who is being seen due to chest pain. She had severe L UE tingling which hasnow resolved. Pt is ambulating and transferring at her baseline for functional mobility. Pt could benefit from home health PT for functional mobility work in her home environment to prevent falls upon DC. Pt is motivated and pleasant and responds well to suggestions of ther ex and daily ambulation to avoid deconditioning. PT Plan of Care (as per below) Pt does not need acute PT and is at her baseline Discharge Recommendations: ?? Home equipment needs: ?Post discharge Rehab needs: home health or outpatient PT ?? Disposition: home ?Supervision needs: requires no supervision ?Discussed plan of care with: MD and pt *Evaluation Procedure Documentation: CPT 40358: Low Complexity PT Evaluation:?15 minutes Physical Therapy Evaluation performed. History involves 1-2 personal factors and/or comorbidities. Examination of body system(s) includes 1-2 elements. Clinical presentation is stable. Clinical decision making is low. *Total Time: 15 min *Time In: 1044 *Time Out: 1059 Electronically Signed on 05/13/22 01:08 PM César Oconnor PT, DPT Nutrition and dietetics Progress note * Chito Salgado RD: PERFORM, MODIFY Event Display: Nutrition Note Authored Date: Nutrition Recommendations Patient reports weight loss over the past few weeks prior to admission. She became aware of this ather recent PCP visit when she was weighed. Reports no changes of appetite, enjoyed breakfast with excellent appetite earlier this morning. She also reports that she receives meals on wheels, makes some of her own meals, and receives help from nursing aides a few times per week. Has no nutrition related questions or concerns at this time. Nutrition Risk Level Moderate Assessment and Monitoring 5-7 days. Follow po intake of meals and patient interest in diet education. Nutrition Diagnosis NCP Diagnosis Priority: 8(Recorded: 05/14/2022 11:44 EST) No nutrition diagnosis at this timeas evidenced by No acute nutrition related diagnosis at this time. Insignificant weight loss noted over the past 8 months Nutrition Goals - average meal intakes of 50% or greater Nutrition Interventions - continue with heart healthy diet as ordered, add diabetic restriction,??encourage adequate po intake of meals Anthropometrics/Estimated Needs Yytyjm97.50 kg(Recorded: 05/13/2022 16:56 EST) Usual Kkzsdh67.5 kg(Recorded: 05/13/2022 16:56 EST) Ewenaw666.000 cm(Recorded: 05/12/2022 20:17 EST) Body Mass Index30.000 kg/m2(Recorded: 05/12/2022 20:17 EST) Reason for Visit Chest pain for one hour, tingling down her left arm for one hour. Problem List/Past Medical History Ongoing Anemia Atrophic gastritis Chronic kidney disease stage 4 Degenerative joint disease of shoulder region Delirium Depressive disorder Essential tremor Gastroesophageal reflux disease Hyperlipidemia Hyperosmolality Hypertensive disorder Idiopathic osteoarthritis Irritable bowel syndrome with diarrhea Migraine Obesity Posttraumatic stress disorder Recurrent major depression Renal mass Type 2 diabetes mellitus without complication Urinary incontinence Urinary tract infectious disease Historical No qualifying data Procedure/Surgical History ???Colonoscopy (11/23/2014)???Ventral Hernia Repair (01/18/2012)???EGD - Esophagogastroduodenoscopy(06/13/2008)???Oophorectomy- left (06/07/2003)???Appendectomy (06/07/1979)???Oophorectomy-right (06/1979)???Cholecystectomy (06/07/1973)???Total abdominal hysterectomy (06/07/1971) Social History Electronic Cigarette/Vaping Electronic Cigarette Use: Never. Home/Environment Living situation: Home with assistance. Home equipment: Walker.- Comments: Lives at home with cat. Tobacco Never tobacco user Tobacco Use:. Family History Coronary arteriosclerosis: Mother. Diabetes mellitus: Mother and Brother. Granulomatosis with polyangiitis with multisystem involvement: Brother. Heart disease: Mother, Father and Brother. Hypertensive disorder: Mother and Brother. Malignant tumor of stomach: Mother. Family Member(s): ?? BROTHER, at age: Unknown. Cause of : Diet Orders Diet Order, 05/13/22 3:06:00 EST, Low Sodium, Heart Healthy Allergies azithromycin??(Skin rash) codeine??(Rapid heart beat) Nutrition Lab Results Test Name Test Result Date/Time WBC 5.4 x10^3/mcL 05/14/2022 07:34 EST Hgb 9.9 g/dL 05/14/2022 07:34 EST Hct 31.1 % 05/14/2022 07:34 EST MCV 97.5 05/14/2022 07:34 EST Platelets 139 x10^3/mcL 05/14/2022 07:34 EST INR 1.0 05/12/2022 20:43 EST Partial Thromboplastin Time 22 seconds 05/14/2022 07:34 EST Sodium Level 141 mmol/L 05/14/2022 07:34 EST Potassium Level 3.6 mmol/L 05/14/2022 07:34 EST Chloride Level 103 mmol/L 05/14/2022 07:34 EST CO2 28 mmol/L 05/14/2022 07:34 EST Alk Phos 73 unit/L 05/12/2022 20:43 EST ALT 9 unit/L 05/12/2022 20:43 EST BUN 29 mg/dL 05/14/2022 07:34 EST Glucose Level 169 mg/dL 05/14/2022 07:34 EST Creatinine Level 2.40 mg/dL 05/14/2022 07:34 EST Albumin Level 3.5 g/dL 05/12/2022 20:43 EST Bilirubin Total 0.6 mg/dL 05/12/2022 20:43 EST Magnesium Level 1.0 mg/dL 05/14/2022 07:34 EST Medications Inpatient acetaminophen, 1000 mg= 2 tab, Oral, every 6 hr, PRN atorvastatin, 40 mg= 1 tab, Oral, Daily Dextrose 50% intravenous solution, 12.5 g= 25 mL, IV Push, Once, PRN ferrous gluconate, 324 mg= 1 tab, Oral, Daily glucagon, 1 mg= 3 mL, IM, As Directed, PRN glucose 40% oral gel, 15 g, Oral, As Directed, PRN glucose 40% oral gel, 30 g, Oral, As Directed, PRN influenza virus vaccine, 0.7 mL, IM, Once, PRN insulin lispro (HumaLog) correction- sensitive, Sensitive Scale, Subcutaneous, QID(ACHS) lidocaine 1% injectable solution, 5 mg= 0.5 mL, Intradermal, As Directed, PRN LORazepam, 0.5 mg= 1 tab, Oral, every night at bedtime, PRN LORazepam, 0.25 mg= 0.5 tab, Oral, QID, PRN magnesium oxide, 400 mg= 1 tab, Oral, BID magnesium sulfate, 1 g= 100 mL, IV Piggyback, Once Metoprolol Succinate ER 25 mg oral tablet, extended release, 25 mg= 1 tab, Oral, Daily nitroglycerin 0.4 mg sublingual tablet, 0.4 mg= 1 tab, SL, every 5 min, PRN nitroglycerin 0.4 mg sublingual tablet, 0.4 mg= 1 tab, SL, every 5 min, PRN Normal Saline Flush, 10 mL, IV Push, every 12 hr (nena) omeprazole, 20 mg= 1 cap, Oral, Daily pneumococcal 23-polyvalent vaccine, 0.5 mL, IM, Once, PRN propranolol, 60 mg= 1.5 tab, Oral, BID Sodium Chloride 0.9% 1,000 mL, 1000 mL, IV Home acetaminophen 500 mg oral tablet, 1000 mg= 2 tab, Oral, every 6 hr, PRN atorvastatin 40 mg oral tablet, 40 mg= 1 tab, Oral, Daily Augmentin 250 mg-62.5 mg/5 mL oral liquid, 5 mL, Oral, every 12 hr BD UF MINI PEN NEEDLE [id number], See Instructions BD UF Pen Needle Mini [id number], See instructions, 2 refills ferrous gluconate 324 mg (38 mg elemental iron) oral tablet, 324 mg= 1 tab, Oral, Daily Glucagon Emergency Kit for Low Blood Sugar 1 mg injection Levemir FlexTouch 100 units/mL subcutaneous solution, 15 units, Subcutaneous, Daily, 3 refills Levemir FlexTouch 100 units/mL subcutaneous solution, 15 units, Subcutaneous, every night at bedtime Melatonin 3 mg oral tablet, 3 mg= 1 tab, Oral, every night at bedtime Melatonin 3 mg oral tablet, 3 mg= 1 tab, Oral, every night at bedtime, 1 refills memantine 5 mg oral tablet, 5 mg= 1 tab, Oral, BID METOPROLOL SUCC ER 25 MG TAB, 1 tab, Oral, Daily Metoprolol Succinate ER 25 mg oral tablet, extended release, 25 mg= 1 tab, Oral, Daily, 3 refills mupirocin 2% topical ointment, See Instructions nitroglycerin 0.4 mg sublingual tablet, SL, every 5 min NovoLOG FlexPen 100 units/mL injectable solution, 5 units, Subcutaneous, TID(AC) NovoLOG FlexPen 100 units/mL injectable solution, 5 units, Subcutaneous, TID(AC) Onetouch Ultra Blue Test Strips, See instructions, 12 refills oxybutynin 5 mg oral tablet, 5 mg= 1 tab, Oral, BID, PRN pantoprazole 40 mg oral delayed release tablet, 40 mg= 1 tab, Oral, Daily, 3 refills pantoprazole 40 mg oral delayed release tablet, 40 mg= 1 tab, Oral, Daily propranolol 20 mg oral tablet, 60 mg= 3 tab, Oral, BID propranolol 20 mg oral tablet, 60 mg= 3 tab, Oral, BID, 3 refills selenium sulfide 2.5% topical lotion, 1 zina, Topical, every 48 hr venlafaxine 150 mg oral capsule, extended release, 150 mg= 1 cap, Oral, Daily Vitamin B2 100 mg oral tablet, 100 mg= 1 tab, Oral, Daily Vitamin B2 100 mg oral tablet, 1 tab, Oral, Daily Vitamin C 500 mg oral tablet, chewable, 500 mg= 1 tab, Chewed, Daily Vitamin C TR 500 mg oral capsule, 1 cap, Oral, Daily Electronically Signed on 05/14/22 11:[address] Progress note * Amandeep Caro DO: PERFORM Event Display: Progress Note - Physician Authored Date: [id number] MARIA INES BROOKS :1945 Age:77 years Sex:Female Visit Date:05/12/2022 Primary Care Physician: Jeannine Fernandes MD Subjective 77-year-old woman??with a history of hyperlipidemia, type 2 diabetes, IBS,??essential tremor,??chronic kidney disease stage IV,??but no known cardiovascular disease who presented with chest pain. ?? Plan had been to discharge her home??yesterday on 05/14/2022??but she developed another episode of chest pain. This seemed to be mostly connected to a complaint she had about her neighbor who??by her account has psychiatric problems and has been threatening. ?? She has been maintained on her home??atorvastatin 40 mg daily,??her 2 beta- blockers, propranolol and??metoprolol,??and she was started on a low-dose aspirin.?? Because her story-central chest pain which radiated down her left arm-was suggestive of coronary ischemia,??she was started on heparin in the emergency department??and while this was??discontinued in the computer she did get it for approximately 24 hours.?? Her troponins never went out of the normal range however??and she did have EKG changes. ?? This seems most??likely related to anxiety given??the tremendous stress she feels??regarding conflict. ?? Her magnesium level was low??and this was aggressively replaced??and is now??close to the normal range. ?? Echocardiogram was done and did show aortic stenosis with a valve area of 1.2 cm?but no other substantial??changes to account for her symptoms.?? There were no wall motion abnormalities.?? She didhave a CT scan of her chest in 2019 which did not reveal??coronary artery calcifications. ?? Her anxiety has been treated with as needed lorazepam. ?? Her blood pressure was high and I did add amlodipine??which may help with??coronary??ischemia pain if this is??part of her problem. ?? She will discharge today and will need??a stress test??to assess her??cardiac function under stress.?? Also be reasonable to have her follow-up with??tipple operator. Review of Systems Today,??anxiety remains an issue.?? Otherwise,??denies chest pain, dyspnea, palpitations, dizziness, headaches, sudden visual changes, cough, or new peripheral edema. Objective Vitals & Measurements T:??36.9?C ??(Temporal Artery)?? TMIN:??36.8?C ??(Temporal Artery)?? TMAX:??37.2?C ??(Temporal Artery)?? HR:??63??(Peripheral)?? RR:??18?? BP:??152/74?? SpO2:??96%?? WT:??75.5??kg?? Pain Score:??0?? O2 Therapy:??Room air?? Physical Exam General: Alert and oriented woman who appears stated age in no acute distress; ??full command of cognitive faculties; anxious HEENT: Normocephalic; normal facial movements; extraocular muscle movements apparently normal; necksupple without adenopathy; no evidence of thyromegaly or nodularity; oropharynx without erythema, edema or discharge Cardiovascular: S1-S2; ??no noted murmurs, rubs or gallops Pulmonary: Good air movement bilaterally with no wheezes, rales or rhonchi Abdomen: Soft, nontender with no guarding; no organomegaly; nondistended Skin: Warm and dry; no rashes Neurological: Moves all extremities; no focal deficits; cranial nerves 3, 4, 6, 7, 8, 11, and 12 within normal limits Musculoskeletal: No edema; no obvious arthropathy Psych: Alert and interactive; euthymic [1] Assessment/Plan 1.??Chest pain??R07.9 No evidence of damage to her heart muscle while here in the hospital.?? No troponin elevations havebeen identified.?? No EKG changes.?? She will need a stress test??and not unreasonably??could follow-up with a??tipple operator. ?? This may be anxiety related??as it seems to come on when she thinks about going home to face her??difficult neighbor. ?? She is getting some help from the community now??managing this and hopefully can??get placed in??elderly housing which would allow her to avoid??some of the stress she is currently??experiencing. ?? 2.??Anemia??D64.9 ??Has become mildly anemic-she does have chronic kidney disease which may account for this.?? On her day of discharge her hemoglobin had??increased??to 10.7 and??this may be partly delusional??or perhaps she was dehydrated when she presented. ?? 3.??Hypertensive disorder??I10 ??Blood pressure is high tonight. ??I did add amlodipine??and her pressure remains a bit above goalthis morning but was better overnight.?? Can follow-up with her primary care provider on this. ?? 4.??Type 2 diabetes mellitus without complication??E11.9 ??Continue usual??insulin regimen ?? 5.??Anxiety??F41.9 ??We will treat with low-dose lorazepam while here. ??Did find this helpful at night. ?? 6. ??Hypomagnesemia Magnesium level dropped to??1 the day before discharge.?? After some IV replacement and oral replacement this was up to 1.6 this morning.?? We will discharge her with??ongoing??magnesium replacement and this can be followed up??by her primary care provider.?? We will order a follow-up??blood test. 2.??Anemia??D64.9 3.??Hypertensive disorder??I10 4.??Type 2 diabetes mellitus without complication??E11.9 5.??Anxiety??F41.9 6.??Aortic stenosis??I35.0 Aortic stenosis with valve area of 1.2 cm?? by echo??05/13/2022. Orders: amLODIPine, 5 mg = 1 tab, Oral, Tab, Daily, First Dose: 05/15/22 9:00:00 EST, Routine aspirin, 81 mg = 1 tab, Oral, Tab-Chew, Daily, First Dose: 05/15/22 9:47:00 EST, Routine ferrous gluconate, 324 mg = 1 tab, Oral, Tab, Daily, First Dose: 05/14/22 9:00:00 EST, Routine insulin glargine, 15 units = 0.15 mL, Subcutaneous, Soln, every night at bedtime, First Dose: 05/14/22 21:00:00 EST, Routine magnesium oxide, 400 mg = 1 tab, Oral, Tab, BID for 30 days, First Dose: 05/14/22 16:27:00 EST, Stop Date: 06/13/22 8:59:00 EST, Physician Stop, Routine Basic Metabolic Panel, Blood, Routine, 05/14/22 21:25:00 EST, every morning, for 3 days, Lab Collect CBC w/o Diff, Blood, Routine, 05/14/22 21:25:00 EST, every morning, for 3 days, Lab Collect CV Electrocardiogram 12 Lead, 05/14/22 10:44:00 EST, Routine, Reason: Other (please specify), Stop date and time 05/14/22 10:44:00 EST, Amandeep Caro DO, ORD_SET_REQ_DT_RANGE, [facility]'s Internal Person Id Diet Order, 05/14/22 11:53:00 EST, Diabetic, Medium (1,700-2,000 patrick) 75g CHO, Heart Healthy, Low Sodium Magnesium Level, Blood, Routine, 05/14/22 21:25:00 EST, every morning, for 3 days, Lab Collect Occult Blood Screen 1, Stool, Routine Collect, 05/14/22 21:22:00 EST, Once, Nurse collect, Print Label PSO Admit to Inpatient, Semi-Private, Inpatient, Amandeep Caro DO, 05/14/22 16:39:00 EST, 05/14/22 16:39:00 EST, 05/14/22 16:39:00 EST, 2 midnights or more Disposition:??She will discharge to home today to follow-up with her primary care provider,??have an outpatient??cardiac stress test,??and??consider follow- up with??cardiology. [1]??Progress/SOAP Note; Amandeep Caro DO 05/14/2022 21:24 EST Electronically Signed on 05/15/22 09:55 AM Amandeep Caro DO * Amandeep Caro DO: PERFORM Event Display: Progress Note - Physician Authored Date: [id number] MARIA INES BROOKS :1945 Age:77 years Sex:Female Visit Date:05/12/2022 Primary Care Physician: Jeannine Fernandes MD Subjective 77-year-old woman??with a history of hyperlipidemia, type 2 diabetes, IBS,??essential tremor,??chronic kidney disease stage IV,??but no known cardiovascular disease who presented with chest pain. ?? Plan had been to discharge her home today??but she developed another episode of chest pain. ?? This seems most??likely related to anxiety given??the tremendous stress she feels??regarding conflict with a neighbor. ?? Her magnesium level was low??and this will need to be aggressively replaced today and will help to discharge her tomorrow. Review of Systems Currently??denies chest pain, dyspnea, palpitations, dizziness, headaches, sudden visual changes, cough, or new peripheral edema. Objective Vitals & Measurements T:??37.2?C ??(Temporal Artery)?? TMIN:??36.6?C ??(Temporal Artery)?? TMAX:??37.2?C ??(Temporal Artery)?? HR:??65??(Peripheral)?? RR:??16?? BP:??167/76?? SpO2:??97%?? Physical Exam General: Alert and oriented woman who appears stated age in no acute distress; ??full command of cognitive faculties; anxious HEENT: Normocephalic; normal facial movements; extraocular muscle movements apparently normal; necksupple without adenopathy; no evidence of thyromegaly or nodularity; oropharynx without erythema, edema or discharge Cardiovascular: S1-S2; ??no noted murmurs, rubs or gallops Pulmonary: Good air movement bilaterally with no wheezes, rales or rhonchi Abdomen: Soft, nontender with no guarding; no organomegaly; nondistended Skin: Warm and dry; no rashes Neurological: Moves all extremities; no focal deficits; cranial nerves 3, 4, 6, 7, 8, 11, and 12 within normal limits Musculoskeletal: No edema; no obvious arthropathy Psych: Alert and interactive; euthymic Assessment/Plan 1.??Chest pain??R07.9 This can certainly be worked up as an outpatient.?? No troponin elevations have been identified.?? No EKG changes. ?? This is likely anxiety related??as it seems to come on when she thinks about going home to face her??difficult neighbor. ?? She is getting some help from the community now??doing with this and hopefully can??get placed in??elderly housing which would allow her to avoid??some of the stress she is currently??experiencing. 2.??Anemia??D64.9 Has become mildly anemic-she does have chronic kidney disease which may account for this.?? We willcheck her stool for blood. 3.??Hypertensive disorder??I10 Blood pressure is high tonight. ??We will add amlodipine which could help with??chest pain if it were cardiac. 4.??Type 2 diabetes mellitus without complication??E11.9 Continue usual??medications. 5.??Anxiety??F41.9 We will treat with low-dose lorazepam while here. ??She reported that this was helpful last night. Orders: amLODIPine, 5 mg = 1 tab, Oral, Tab, Daily, First Dose: 05/15/22 9:00:00 EST, Routine atorvastatin, 40 mg = 1 tab, Oral, Tab, Daily, First Dose: 05/14/22 17:00:00 EST, Routine ferrous gluconate, 324 mg = 1 tab, Oral, Tab, Daily, First Dose: 05/14/22 9:00:00 EST, Routine insulin glargine, 15 units = 0.15 mL, Subcutaneous, Soln, every night at bedtime, First Dose: 05/14/22 21:00:00 EST, Routine magnesium oxide, 400 mg = 1 tab, Oral, Tab, BID for 30 days, First Dose: 05/14/22 16:27:00 EST, Stop Date: 06/13/22 8:59:00 EST, Physician Stop, Routine Metoprolol Succinate ER 25 mg oral tablet, extended release, 25 mg = 1 tab, Oral, Tab-ER, Daily, First Dose: 05/14/22 9:41:00 EST, Routine propranolol, 60 mg = 1.5 tab, Oral, Tab, BID, First Dose: 05/14/22 9:41:00 EST, Routine CV Electrocardiogram 12 Lead, 05/14/22 10:44:00 EST, Routine, Reason: Other (please specify), Stop date and time 05/14/22 10:44:00 EST, Amandeep Caro DO, ORD_SET_REQ_DT_RANGE, [facility]'s Internal Person Id Diet Order, 05/14/22 11:53:00 EST, Diabetic, Medium (1,700-2,000 patrick) 75g CHO, Heart Healthy, Low Sodium Occult Blood Screen 1, Stool, Routine Collect, 05/14/22 21:22:00 EST, Once, Nurse collect, Print Label PSO Admit to Inpatient, Semi-Private, Inpatient, Amandeep Caro DO, 05/14/22 16:39:00 EST, 05/14/22 16:39:00 EST, 05/14/22 16:39:00 EST, 2 midnights or more Disposition:??Discharge tomorrow. Electronically Signed on 05/14/22 09:24 PM Amandeep Caro DO History and physical note * Nissa Pete PRENATAL GENETIC COUNSELOR: PERFORM Event Display: History and Physical Authored Date: [id number] MARIA INES BROOKS :1945 Age:77 years Sex:Female Visit Date:05/12/2022 Primary Care Physician: Jeannine Fernandes MD Chief Complaint Chest pain for one hour, tingling down her left arm for one hour. History of Present Illness 77-year-old female??with??a history of??hyperlipidemia, T2DM,??IBS with diarrhea,??essential tremor,??ED stage IV,??no known??cardiovascular disease??presented to [facility] emergency department??with complaints of sudden onset of left-sided chest pain that radiated to??her left arm and was a 10out of 10.?? The patient did receive??324 mg of aspirin and nitroglycerin sublingual on arrival. ??Her pain improved??to a 7/10 sublingual nitroglycerin.?? Followed by??chest pain being resolved. ??Patient denies shortness of breath,??painful breathing,??headache,??nausea, vomiting, recent illness,??or other associated symptoms. ?? Labs and??diagnostic tests were??reviewed. ?? 12 Lead EKG:?? EKG was performed. ??Heart rate??was 78??and there were??T wave inversions in 7, 8 and 9 but no elevations or depressions. ?? Troponin??#1 31.8,??troponin #2 31.9. ??No leukocytosis.?? K??0.1, Na 141, CR 2.62, BUN 35. There is negative,??urine negative. ??Chest x-ray no acute findings. ?? ER physician spoke with [facility] cardiology??who??concurs that??given her??clinical presentation??that??she should have her troponin trended, start heparin, and??receive an echo cardiogram. ??In addition there are??no beds??available??at tertiary facilities. ?? The patient remained stable, chest pain-free,??and offers no other complaints.??Risks/Comorbidities: advanced age, T2DM.?ROS/PE as noted.?? The plan of care is as outlined below??and will be updated as needed during stay.??I discussed??the plan of care with the patient??who??offers no other questions and or concerns at this time. ?? The anticipated length of stay is 1 midnight.?? Anticipate for home health postdischarge.?? PT consult has been??ordered??to confirm??her mobility. Review of Systems Constitutional: No fevers, chills, sweats Eye: No recent visual problems ENT: No ear pain, nasal congestion, sore throat Respiratory: No shortness of breath, cough Cardiovascular: (+) Chest pain, palpitations, syncope, (+) BLE edema Gastrointestinal: No nausea, vomiting, diarrhea Genitourinary: No hematuria, no dysuria, no malodorous urine. Jean/Lymph: Negative for bruising tendency, swollen lymph glands Endocrine: Negative for excessive thirst, excessive hunger Musculoskeletal: No back pain, neck pain, joint pain, muscle pain, decreased range of motion Integumentary: No rash, pruritus, abrasions Neurologic: Alert & oriented X 4 Psychiatric: No anxiety, depression Physical Exam Vitals & Measurements T:??36.8?C ??(Temporal Artery)?? HR:??65??(Peripheral)?? HR:??63??(Monitored)?? RR:??13?? BP:??142/64?? SpO2:??95%?? HT:??161.000??cm?? WT:??77.50??kg?? BMI:??30.000?? O2 Therapy:??Room air?? General: Alert and oriented, advanced age, well nourished, no acute distress. Eye: PERRL, EOMI, normal conjunctiva. HENT: Normocephalic, normal hearing, moist oral mucosa. Neck: Supple, non-tender, no carotid bruits, no JVD, no lymphadenopathy. Lungs: Clear to auscultation, non-labored respiration. Heart: Normal rate, regular rhythm, no murmur, gallop or trace BLE edema. Abdomen: Soft, non-tender, non-distended, normal bowel sounds, no masses. : No suprapubic tenderness, no CVA tenderness. Musculoskeletal: Normal range of motion and strength, no tenderness or swelling. Skin: Skin is warm, dry, no rashes or lesions. Neurologic: Awake, alert and oriented X4, CN II-XII intact. Psychiatric: Cooperative, appropriate mood and affect. Assessment/Plan 1.??Chest pain??R07.9 Trend Troponin IV Heparin per protocol ECHO SL 0.4 mg nitroglycerin Q5 minutes as needed for chest pain & notify provider of chest pain. ASA 81 mg daily Follow labs Reconsult [facility] cardiology as needed Orders: acetaminophen, 1,000 mg = 2 tab, Oral, Tab, every 6 hr, PRN pain, First Dose: 05/13/22 3:06:00 EST,STAT glucagon, 1 mg = 3 mL, IM, Powder-Inj, As Directed, PRN low blood sugar, First Dose: 05/13/22 5:34:00 EST, Routine glucose 40% oral gel, 15 g, Oral, Gel, As Directed, PRN low blood sugar, First Dose: 05/13/22 5:34:00 EST, Routine Dextrose 50% intravenous solution, 25 mL, IV Push, Soln, Once, PRN other (see comment), First Dose:05/13/22 5:34:00 EST, Physician Stop, Routine glucose 40% oral gel, 30 g, Oral, Gel, As Directed, PRN low blood sugar, First Dose: 05/13/22 5:34:00 EST, Routine influenza virus vaccine, 0.7 mL, IM, Susp, Once, PRN other (see comment), First Dose: 05/13/22 3:06:00 EST, Physician Stop, STAT insulin lispro (HumaLog) correction- sensitive, Sensitive Scale, Subcutaneous, Soln, QID(ACHS), First Dose: 05/13/22 7:30:00 EST, Routine lidocaine 1% injectable solution, 5 mg 0.5 mL, Intradermal, Soln, As Directed, PRN other (see comment), First Dose: 05/13/22 3:06:00 EST, STAT LORazepam, 0.5 mg = 1 tab, Oral, Tab, every night at bedtime, PRN sleep, First Dose: 05/13/22 3:06:00 EST, STAT omeprazole, 20 mg = 1 cap, Oral, Cap-DR, Daily, First Dose: 05/13/22 3:06:00 EST, STAT pneumococcal 23-polyvalent vaccine, 0.5 mL, IM, Soln, Once, PRN other (see comment), First Dose: 05/13/22 3:06:00 EST, Physician Stop, STAT Normal Saline Flush, 10 mL, IV Push, Soln-IV, every 12 hr (nena), First Dose: 05/13/22 3:06:00 EST, STAT Sodium Chloride 0.9% 1,000 mL, Total Volume (mL): 1,000, 1,000 mL, Soln-IV, IV, 30 mL/hr, Start Date: 05/13/22 3:06:00 EST, 77.5 kg, Populate Charting Weight From Order, 1.86, m2 Above the Knee Grad Compression Stocking, 05/13/22 3:06:00 EST, Constant Order, Knee-high compression stockings.(Graduated compression stockings) Remove twice daily for 30min Basic Metabolic Panel, Blood, Routine, 05/13/22 3:06:00 EST, every morning, for 3 days, Lab Collect Blood Glucose Monitoring POC, 05/13/22 6:00:00 EST, QID(ACHS), 05/13/22 7:30:00 EST Cardiac Monitoring, 05/13/22 3:06:00 EST, Telemetry CBC w/o Diff, Blood, Routine, 05/13/22 3:06:00 EST, every morning, for 3 days, Lab Collect Diet Order, 05/13/22 3:06:00 EST, Low Sodium, Heart Healthy Echocardiogram Complete, 05/13/22 7:00:00 EST, LEANNE, Abnormal ECG, Stop date 05/13/22 7:00:00 EST Hemoglobin A1c, Blood, Routine, 05/13/22 6:00:00 EST, Once, Nurse collect Intake and Output, 05/13/22 3:06:00 EST, every 8 hrs, Constant Indicator, 05/13/22 3:06:00 EST Lipid Panel, Blood, Routine, 05/13/22 6:00:00 EST, Once, Nurse collect Magnesium Level, Blood, Routine, 05/13/22 3:06:00 EST, every morning, for 3 days, Lab Collect Notify Provider of Vital Signs, 05/13/22 3:06:00 EST, SpO2 < 92% on 2L O2 NC, T > 101.5, HR > 100, HR < 50, SBP greater than 160, SBP less than 90, DBP greater than 90, DBP less than 50, Resp Rate greater than 30, Resp Rate less than [address] in Observation, Observation, Observation, Amandeep Caro DO, 05/13/22 3:01:00 EST,05/13/22 3:01:00 EST, 05/13/22 3:01:00 EST, 1 midnight or less PT Evaluation and Treatment Acute., 05/13/22 3:06:00 EST, Once Resuscitation Status, 05/13/22 3:06:00 EST, Full Code Saline Lock Insert, 05/13/22 3:06:00 EST, Once, Stop date 05/13/22 3:06:00 EST Troponin-I, Blood, Timed Study, 05/13/22 3:06:00 EST, every 6 hr, for 3 times, Lab Collect TSH w/ Rflx to Free T4, Blood, Routine, 05/13/22 6:00:00 EST, Once, Nurse collect Up to Chair, 05/13/22 3:06:00 EST, TID w/ Meals Up with Assistance, 05/13/22 3:06:00 EST, Constant Order Vital Signs, 05/13/22 3:06:00 EST, Constant order, every 4 hrs Weight, 05/13/22 3:06:00 EST, Daily Management of chronic disease: once home medications are verified, order as appropriate. Referral Orders PT Images see HPI Problem List/Past Medical History Ongoing Anemia Atrophic gastritis Chronic kidney disease stage 4 Degenerative joint disease of shoulder region Delirium Depressive disorder Essential tremor Gastroesophageal reflux disease Hyperlipidemia Hyperosmolality Hypertensive disorder Idiopathic osteoarthritis Irritable bowel syndrome with diarrhea Migraine Obesity Posttraumatic stress disorder Recurrent major depression Renal mass Type 2 diabetes mellitus without complication Urinary incontinence Urinary tract infectious disease Historical No qualifying data Procedure/Surgical History ???Colonoscopy (11/23/2014)???Ventral Hernia Repair (01/18/2012)???EGD - Esophagogastroduodenoscopy(06/13/2008)???Oophorectomy- left (06/07/2003)???Appendectomy (06/07/1979)???Oophorectomy-right (06/1979)???Cholecystectomy (06/07/1973)???Total abdominal hysterectomy (06/07/1971) Medications Inpatient acetaminophen, 1000 mg= 2 tab, Oral, every 6 hr, PRN Dextrose 50% intravenous solution, 12.5 g= 25 mL, IV Push, Once, PRN glucagon, 1 mg= 3 mL, IM, As Directed, PRN glucose 40% oral gel, 15 g, Oral, As Directed, PRN glucose 40% oral gel, 30 g, Oral, As Directed, PRN influenza virus vaccine, 0.7 mL, IM, Once, PRN insulin lispro (HumaLog) correction- sensitive, Sensitive Scale, Subcutaneous, QID(ACHS) lidocaine 1% injectable solution, 5 mg= 0.5 mL, Intradermal, As Directed, PRN LORazepam, 0.5 mg= 1 tab, Oral, every night at bedtime, PRN morphine, 2 mg= 1 mL, IV Push, Once nitroglycerin 0.4 mg sublingual tablet, 0.4 mg= 1 tab, SL, every 5 min, PRN nitroglycerin 0.4 mg sublingual tablet, 0.4 mg= 1 tab, SL, every 5 min, PRN Normal Saline Flush, 10 mL, IV Push, every 12 hr (nena) omeprazole, 20 mg= 1 cap, Oral, Daily pneumococcal 23-polyvalent vaccine, 0.5 mL, IM, Once, PRN Sodium Chloride 0.9% 1,000 mL, 1000 mL, IV Home acetaminophen 500 mg oral tablet, 1000 mg= 2 tab, Oral, every 6 hr, PRN atorvastatin 40 mg oral tablet Augmentin 250 mg-62.5 mg/5 mL oral liquid, 5 mL, Oral, every 12 hr BD PEN NEEDLE/MINI/ULTRA- [id number] MIS BD UF MINI PEN NEEDLE [id number], See Instructions BD UF MINI PEN NEEDLE [id number] BD UF Pen Needle Mini [id number], See instructions, 2 refills ferrous gluconate 324 mg (38 mg elemental iron) oral tablet Glucagon Emergency Kit for Low Blood Sugar 1 mg injection ketoconazole 2% topical shampoo Levemir FlexTouch 100 units/mL subcutaneous solution, 15 units, Subcutaneous, Daily, 3 refills loperamide 2 mg oral capsule Melatonin 3 mg oral tablet, 3 mg= 1 tab, Oral, every night at bedtime, 1 refills memantine 5 mg oral tablet Metoprolol Succinate ER 25 mg oral tablet, extended release, 25 mg= 1 tab, Oral, Daily, 3 refills mupirocin 2% topical ointment, See Instructions nitroglycerin 0.4 mg sublingual tablet NovoLOG FlexPen 100 units/mL injectable solution, 5 units, Subcutaneous, TID(AC) Onetouch Ultra Blue Test Strips, See instructions, 12 refills oxybutynin 5 mg oral tablet pantoprazole 40 mg oral delayed release tablet, 40 mg= 1 tab, Oral, Daily, 3 refills propranolol 20 mg oral tablet, 60 mg= 3 tab, Oral, BID, 3 refills venlafaxine 150 mg oral capsule, extended release Vitamin B2 100 mg oral tablet, 1 tab, Oral, Daily Vitamin C 500 mg oral tablet, chewable, 500 mg= 1 tab, Chewed, Daily Vitamin C TR 500 mg oral capsule, 1 cap, Oral, Daily Allergies azithromycin??(Skin rash) codeine??(Rapid heart beat) Social History Electronic Cigarette/Vaping Electronic Cigarette Use: Never. Home/Environment Living situation: Home with assistance. Home equipment: Walker.- Comments: Lives at home with cat. Tobacco Never tobacco user Tobacco Use:. Family History Coronary arteriosclerosis: Mother. Diabetes mellitus: Mother and Brother. Granulomatosis with polyangiitis with multisystem involvement: Brother. Heart disease: Mother, Father and Brother. Hypertensive disorder: Mother and Brother. Malignant tumor of stomach: Mother. Family Member(s): ?? BROTHER, at age: Unknown. Cause of : Immunizations Vaccine Date Status influenza virus vaccine, inactivated 04/09/2022 Given SARS-CoV-2 (COVID-19) mRNA BNT-162b2 vax 04/22/2021 Recorded influenza, unspecified formulation 03/20/2021 Recorded SARS-CoV-2 (COVID-19) mRNA BNT-162b2 vax 08/16/2020 Recorded SARS-CoV-2 (COVID-19) mRNA BNT-162b2 vax 07/26/2020 Recorded pneumococcal 23-polyvalent vaccine 03/27/2020 Recorded influenza, unspecified formulation 03/27/2020 Recorded influenza, unspecified formulation 03/22/2018 Recorded influenza, unspecified formulation 06/22/2017 Recorded pneumococcal 13-valent conjugate vaccine 09/16/2015 Recorded influenza, unspecified formulation 04/18/2015 Recorded influenza virus vaccine, inactivated 04/21/2013 Recorded influenza virus vaccine, inactivated 03/21/2012 Recorded influenza virus vaccine, inactivated 02/27/2011 Recorded tetanus/diphth/pertuss (Tdap) adult/adol 08/25/2010 Recorded influenza virus vaccine, inactivated 03/19/2010 Recorded influenza virus vaccine, inactivated 05/28/2009 Recorded influenza virus vaccine, inactivated 04/21/2007 Recorded influenza virus vaccine, inactivated 03/24/2006 Recorded influenza virus vaccine, inactivated 03/26/2005 Recorded tetanus-diphth toxoids (Td) adult/adol 06/07/2004 Recorded pneumococcal 23-polyvalent vaccine 06/07/2002 Recorded varicella virus vaccine Recorded Lab Results see HPI Diagnostic Results see HPI ECG see HPI Electronically Signed on 05/13/22 05:57 AM Nissa Pete [employer]IC COUNSELOR Reviewed by: Jordan Joseph MD, Charles Thomas DO Discharge summary * Amandeep Caro DO: PERFORM Event Display: Discharge Summary Authored Date: [id number] MARIA INES BROOKS :1945 Age:77 years Sex:Female Visit Date:05/12/2022 Primary Care Physician: Jeannine Fernandes MD Hospital Course Discharge Summary ?? Date of admission:??05/13/2022 ?? Date of discharge:??05/15/2022 ?? Discharge diagnoses:??Chest pain??with negative work-up ?? Consultations:[place] at[place] [place]uling out in the hospital ?? Operations/procedures:??CT scan abdomen and pelvis??on 05/12/2022??which revealed??some changes concerning for proctitis??(but with outpatient symptoms),??exophytic??lesion??in the right kidney??increased in size since??last evaluated??with recommendation for follow-up MRI??on a nonemergent basis ?? Echocardiogram??on 05/13/2022 which showed??normal ejection fraction and no wall motion abnormalities.?? Aortic stenosis with a valve area of 1.2 cm??. ?? Summary of presentation and course ?? Subjective 77-year-old woman??with a history of hyperlipidemia, type 2 diabetes, IBS,??essential tremor,??chronic kidney disease stage IV,??but no known cardiovascular disease who presented with chest pain. ?? Plan had been to discharge her home??yesterday on 05/14/2022??but she developed another episode of chest pain. This seemed to be mostly connected to a complaint she had about her neighbor who??by her account has psychiatric problems and has been threatening. ?? She has been maintained on her home??atorvastatin 40 mg daily,??her 2 beta- blockers, propranolol and??metoprolol,??and she was started on a low-dose aspirin.?? Because her story-central chest pain which radiated down her left arm-was suggestive of coronary ischemia,??she was started on heparin in the emergency department??and while this was??discontinued in the computer she did get it for approximately 24 hours.?? Her troponins never went out of the normal range however??and she did have EKG changes. ?? This seems most??likely related to anxiety given??the tremendous stress she feels??regarding conflict. ?? Her magnesium level was low??and this was aggressively replaced??and is now??close to the normal range. ?? Echocardiogram was done and did show aortic stenosis with a valve area of 1.2 cm?but no other substantial??changes to account for her symptoms.?? There were no wall motion abnormalities.?? She didhave a CT scan of her chest in 2019 which did not reveal??coronary artery calcifications. ?? Her anxiety has been treated with as needed lorazepam. ?? Her blood pressure was high and I did add amlodipine??which may help with??coronary??ischemia pain if this is??part of her problem. ?? She will discharge today and will need??a stress test??to assess her??cardiac function under stress.?? Also be reasonable to have her follow-up with??tipple operator. ?Review of Systems ?Today,??anxiety remains an issue.?? Otherwise,??denies chest pain, dyspnea, palpitations, dizziness, headaches, sudden visual changes, cough, or new peripheral edema. Objective ?Vitals & Measurements ?T:??36.9?C ??(Temporal Artery)?? TMIN:??36.8?C ??(Temporal Artery)?? TMAX:??37.2?C ??(Temporal Artery)?? HR:??63??(Peripheral)?? RR:??18?? BP:??152/74?? SpO2:??96%?? WT:??75.5??kg?? Pain Score:??0?? O2 Therapy:??Room air?Physical Exam ?General: Alert and oriented woman who appears stated age in no acute distress; ??full command of cognitive faculties; anxious HEENT: Normocephalic; normal facial movements; extraocular muscle movements apparently normal; necksupple without adenopathy; no evidence of thyromegaly or nodularity; oropharynx without erythema, edema or discharge Cardiovascular: S1-S2; ??no noted murmurs, rubs or gallops Pulmonary: Good air movement bilaterally with no wheezes, rales or rhonchi Abdomen: Soft, nontender with no guarding; no organomegaly; nondistended Skin: Warm and dry; no rashes Neurological: Moves all extremities; no focal deficits; cranial nerves 3, 4, 6, 7, 8, 11, and 12 within normal limits Musculoskeletal: No edema; no obvious arthropathy Psych: Alert and interactive; euthymic ?[1] Assessment/Plan 1.??Chest pain??R07.9 ?No evidence of damage to her heart muscle while here in the hospital.?? No troponin elevations have been identified.?? No EKG changes.?? She will need a stress test??and not unreasonably??could follow-up with a??tipple operator. ?? This may be anxiety related??as it seems to come on when she thinks about going home to face her??difficult neighbor. ?? She is getting some help from the community now??managing this and hopefully can??get placed in??elderly housing which would allow her to avoid??some of the stress she is currently??experiencing. ?2.??Anemia??D64.9 ?Has become mildly anemic-she does have chronic kidney disease which may account for this.?? On her day of discharge her hemoglobin had??increased??to 10.7 and??this may be partly delusional??orperhaps she was dehydrated when she presented.?? We will recheck this before her primary care provider's visit. ?3.??Hypertensive disorder??I10 ?Blood pressure is high tonight. ??I did add amlodipine??and her pressure remains a bit above goal this morning but was better overnight.?? Can follow-up with her primary care provider on this. ?4.??Type 2 diabetes mellitus without complication??E11.9 ?Continue usual??insulin regimen ?5.??Anxiety??F41.9 ?We treated with low-dose lorazepam while here. ??Did find this helpful at night.?? I am worried about sending her home with something like this as it might increase her fall risk. ?? 6. ??Hypomagnesemia Magnesium level dropped to??1 the day before discharge.?? After some IV replacement and oral replacement this was up to 1.6 this morning.?? We will discharge her with??ongoing??magnesium replacement and this can be followed up??by her primary care provider.?? We will order a follow-up??blood test. ?? 7.??Aortic stenosis??I35.0 ?Aortic stenosis with valve area of 1.2 cm?? by echo??05/13/2022. ?? 8. 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 ??Radiologist recommends following up with a dedicated??study for further evaluation as an outpatient. ?? Disposition:??She will discharge to home today to follow-up with her primary care provider,??have an outpatient??cardiac stress test,??and??follow-up with cardiology.?? Should have an imaging study of her kidneys as an outpatient at some point to reassess the mass described above. ?? Greater than 30 minutes was spent on the day of discharge in coordinating care and arranging outpatient follow-up. Physical Exam Vitals & Measurements T:??36.6?C ??(Temporal Artery)?? TMIN:??36.6?C ??(Temporal Artery)?? TMAX:??37.2?C ??(Temporal Artery)?? HR:??62??(Peripheral)?? RR:??18?? BP:??119/58?? SpO2:??96%?? WT:??75.5??kg?? Pain Score:??0?? O2 Therapy:??Room air?? Medications Inpatient acetaminophen, 1000 mg= 2 tab, Oral, every 6 hr, PRN amLODIPine, 5 mg= 1 tab, Oral, Daily aspirin, 81 mg= 1 tab, Oral, Daily atorvastatin, 40 mg= 1 tab, Oral, Daily Dextrose 50% intravenous solution, 12.5 g= 25 mL, IV Push, Once, PRN ferrous gluconate, 324 mg= 1 tab, Oral, Daily glucagon, 1 mg= 3 mL, IM, As Directed, PRN glucose 40% oral gel, 15 g, Oral, As Directed, PRN glucose 40% oral gel, 30 g, Oral, As Directed, PRN influenza virus vaccine, 0.7 mL, IM, Once, PRN insulin glargine, 15 units= 0.15 mL, Subcutaneous, every night at bedtime insulin lispro (HumaLog) correction- sensitive, Sensitive Scale, Subcutaneous, QID(ACHS) lidocaine 1% injectable solution, 5 mg= 0.5 mL, Intradermal, As Directed, PRN LORazepam, 0.5 mg= 1 tab, Oral, every night at bedtime, PRN LORazepam, 0.25 mg= 0.5 tab, Oral, QID, PRN magnesium oxide, 400 mg= 1 tab, Oral, BID Metoprolol Succinate ER 25 mg oral tablet, extended release, 25 mg= 1 tab, Oral, Daily nitroglycerin 0.4 mg sublingual tablet, 0.4 mg= 1 tab, SL, every 5 min, PRN nitroglycerin 0.4 mg sublingual tablet, 0.4 mg= 1 tab, SL, every 5 min, PRN Normal Saline Flush, 10 mL, IV Push, every 12 hr (nena) omeprazole, 20 mg= 1 cap, Oral, Daily pneumococcal 23-polyvalent vaccine, 0.5 mL, IM, Once, PRN propranolol, 60 mg= 1.5 tab, Oral, BID Sodium Chloride 0.9% 1,000 mL, 1000 mL, IV Home acetaminophen 500 mg oral tablet, 1000 mg= 2 tab, Oral, every 6 hr, PRN amLODIPine 5 mg oral tablet, 5 mg= 1 tab, Oral, Daily, 5 refills aspirin 81 mg oral tablet, chewable, 81 mg= 1 tab, Oral, Daily, 1 refills atorvastatin 40 mg oral tablet, 40 mg= 1 tab, Oral, Daily BD UF MINI PEN NEEDLE [id number], See Instructions BD UF Pen Needle Mini [id number], See instructions, 2 refills ferrous gluconate 324 mg (38 mg elemental iron) oral tablet, 324 mg= 1 tab, Oral, Daily Glucagon Emergency Kit for Low Blood Sugar 1 mg injection Levemir FlexTouch 100 units/mL subcutaneous solution, 15 units, Subcutaneous, every night at bedtime magnesium oxide 400 mg (241.3 mg elemental magnesium) oral tablet, 400 mg= 1 tab, Oral, BID Melatonin 3 mg oral tablet, 3 mg= 1 tab, Oral, every night at bedtime memantine 5 mg oral tablet, 5 mg= 1 tab, Oral, BID Metoprolol Succinate ER 25 mg oral tablet, extended release, 25 mg= 1 tab, Oral, Daily, 3 refills mupirocin 2% topical ointment, See Instructions nitroglycerin 0.4 mg sublingual tablet, SL, every 5 min NovoLOG FlexPen 100 units/mL injectable solution, 5 units, Subcutaneous, TID(AC) Onetouch Ultra Blue Test Strips, See instructions, 12 refills oxybutynin 5 mg oral tablet, 5 mg= 1 tab, Oral, BID, PRN pantoprazole 40 mg oral delayed release tablet, 40 mg= 1 tab, Oral, Daily propranolol 20 mg oral tablet, 60 mg= 3 tab, Oral, BID selenium sulfide 2.5% topical lotion, 1 zina, Topical, every 48 hr venlafaxine 150 mg oral capsule, extended release, 150 mg= 1 cap, Oral, Daily Vitamin B2 100 mg oral tablet, 100 mg= 1 tab, Oral, Daily Vitamin C TR 500 mg oral capsule, 1 cap, Oral, Daily Procedure/Surgical History ???Colonoscopy (11/23/2014)???Ventral Hernia Repair (01/18/2012)???EGD - Esophagogastroduodenoscopy(06/13/2008)???Oophorectomy- left (06/07/2003)???Appendectomy (06/07/1979)???Oophorectomy-right (06/1979)???Cholecystectomy (06/07/1973)???Total abdominal hysterectomy (06/07/1971) Social History Electronic Cigarette/Vaping Electronic Cigarette Use: Never. Home/Environment Living situation: Home with assistance. Home equipment: Walker.- Comments: Lives at home with cat. Tobacco Never tobacco user Tobacco Use:. Discharge Plan 1.??Chest pain??R07.9 2.??Anemia??D64.9 3.??Hypertensive disorder??I10 4.??Type 2 diabetes mellitus without complication??E11.9 5.??Anxiety??F41.9 6.??Aortic stenosis??I35.0 Orders: amLODIPine, 5 mg = 1 tab, Oral, Tab, Daily, First Dose: 05/15/22 9:00:00 EST, Routine amLODIPine 5 mg oral tablet, 5 mg = 1 tab, Oral, Daily, # 30 tab, 5 Refill(s), Pharmacy: [id number], 161, cm, 05/12/22 20:25:00 EST, Height/Length Dosing, 77.5, kg, 05/12/22 20:25:00 EST, Weight Dosing aspirin, 81 mg = 1 tab, Oral, Tab-Chew, Daily, First Dose: 05/15/22 9:47:00 EST, Routine aspirin 81 mg oral tablet, chewable, 81 mg = 1 tab, Oral, Daily, # 90 tab, 1 Refill(s), Pharmacy: [id number], 161, cm, 05/12/22 20:25:00 EST, Height/Length Dosing, 77.5, kg, 05/12/22 20:25:00 EST, Weight Dosing insulin glargine, 15 units = 0.15 mL, Subcutaneous, Soln, every night at bedtime, First Dose: 05/14/22 21:00:00 EST, Routine magnesium oxide 400 mg (241.3 mg elemental magnesium) oral tablet, 400 mg = 1 tab, Oral, BID, # 60 tab, 0 Refill(s), Pharmacy: [id number], 161, cm, 05/12/22 20:25:00 EST, Height/Length Dosing, 77.5, kg, 05/12/22 20:25:00 EST, Weight Dosing magnesium oxide, 400 mg = 1 tab, Oral, Tab, BID for 30 days, First Dose: 05/14/22 16:27:00 EST, Stop Date: 06/13/22 8:59:00 EST, Physician Stop, Routine Basic Metabolic Panel, Blood, Routine, 05/14/22 21:25:00 EST, every morning, for 3 days, Lab Collect CBC w/o Diff, Blood, Routine, 05/14/22 21:25:00 EST, every morning, for 3 days, Lab Collect Discharge Activity Restrictions, No Strenuous Exercise, until evualuated with stress test Discharge Diet Instruction, Cardiac Diet Discharge Follow Up Instructions, 05/15/22 11:58:00 EST, When following are met: Crisis eval complete- d/c plan in place, Follow up with tipple operator and PCP Discharge Patient, 05/15/22 11:58:00 EST, Other (see instructions), Home to resume home health aids Magnesium Level, Blood, Routine, *Est. 05/22/22 +/- 2 days, Once, Lab Collect, Order for future visit Magnesium Level, Blood, Routine, 05/14/22 21:25:00 EST, every morning, for 3 days, Lab Collect Occult Blood Screen 1, Stool, Routine Collect, 05/14/22:22:00 EST, Once, Nurse collect, Print Label PSO Admit to Inpatient, Semi-Private, Inpatient, LinnAmandeep , 05/14/22 16:39:00 EST, 05/14/22 16:39:00 EST, 05/14/22 16:39:00 EST, 2 midnights or more All Diagnoses This Visit Chest pain Anemia Hypertensive disorder Type 2 diabetes mellitus without complication Anxiety Aortic stenosis Patient Education Managing Anxiety, Adult Nonspecific Chest Pain, Adult, [id number] Exercise Stress Test, [id number] Follow Up With When Contact Information Jeannine Fernandes MD 05/25/2022 02:20 AM [place] [address]- Additional Instructions: HOSPITAL FOLLOW UP Medication Reconciliation New Prescription amLODIPine (amLODIPine 5 mg oral tablet)1 tab Oral (given by mouth) every day. Refills: 5. ?? aspirin (aspirin 81 mg oral tablet, chewable)1 tab Oral (given by mouth) every day. Refills: 1. ?? magnesium oxide (magnesium oxide 400 mg (241.3 mg elemental magnesium) oral tablet)1 tab Oral (given by mouth) 2 times a day. Refills: 0. ?? Changed Other Prescription (BD UF MINI PEN NEEDLE [id number])USE DIRECTED FOUR TIMES A DAY NEEDED. Refills: 3. ?? ascorbic acid (Vitamin C TR 500 mg oral capsule)1 Capsules Oral (given by mouth) every day. ?? insulin aspart (NovoLOG FlexPen 100 units/mL injectable solution)5 Units Subcutaneous (under the skin) 3 times a day before meals. ?? insulin detemir (Levemir FlexTouch 100 units/mL subcutaneous solution)15 Units Subcutaneous (under the skin) every night at bedtime. ?? melatonin (Melatonin 3 mg oral tablet)1 tab Oral (given by mouth) every night at bedtime. ?? pantoprazole (pantoprazole 40 mg oral delayed release tablet)1 tab Oral (given by mouth) every day. ?? propranolol (propranolol 20 mg oral tablet)3 tab Oral (given by mouth) 2 times a day. ?? riboflavin (Vitamin B2 100 mg oral tablet)1 tab Oral (given by mouth) every day. ?? Unchanged acetaminophen (acetaminophen 500 mg oral tablet)2 tab Oral (given by mouth) every 6 hours as needednot specified. ?? atorvastatin (atorvastatin 40 mg oral tablet)1 tab Oral (given by mouth) every day. ?? Durable Medical Equipment for Prescription (BD UF Pen Needle Mini [id number])Use one needle for each injection daily. (current Injections are 4 times daily). Refills: 2. ?? Durable Medical Equipment for Prescription ([employer] Ultra Blue Test Strips)use as directed four times daily. Refills: 12. ?? ferrous gluconate (ferrous gluconate 324 mg (38 mg elemental iron) oral tablet)1 tab Oral (given bymouth) every day. ?? glucagon (Glucagon Emergency Kit for Low Blood Sugar 1 mg injection) ?? memantine (memantine 5 mg oral tablet)1 tab Oral (given by mouth) 2 times a day. ?? metoprolol (Metoprolol Succinate ER 25 mg oral tablet, extended release)1 tab Oral (given by mouth)every day. TAKE ONE TABLET BY MOUTH EVERY DAY. Refills: 3. ?? mupirocin topical (mupirocin 2% topical ointment)APPLY A SMALL AMOUNT TOPICALLY TO AFFECTED AREA(S)THREE TIMES A DAY. Refills: 1. ?? nitroglycerin (nitroglycerin 0.4 mg sublingual tablet)Sublingual (dissolve under the tongue) every 5 minutes. not to exceed 3 doses/15 min--if pain persists, seek medical attention. ?? oxybutynin (oxybutynin 5 mg oral tablet)1 tab Oral (given by mouth) 2 times a day as needed as needed for urinary discomfort. 2-3 TIMES DAILY NEEDED. ?? selenium sulfide topical (selenium sulfide 2.5% topical lotion)1 Application Topical (on the skin) every 48 hours. USE SHAMPOO EVERY OTHER DAY WHEN SHE SHAMPOOS. ?? venlafaxine (venlafaxine 150 mg oral capsule, extended release)1 Capsules Oral (given by mouth) every day. ?? Discontinued amoxicillin-clavulanate (Augmentin 250 mg-62.5 mg/5 mL oral liquid)5 [place]ilit[place] Oral (given by mouth) every 12 hours for 9 Days. Refills: 0. ?? ketoconazole topical (ketoconazole 2% topical shampoo)120 mL, APPLY TOPICALLY WEDNESDAY, WEDNESDAY, WEDNESDAY NEEDED. ?? loperamide (loperamide 2 mg oral capsule)TAKE ONE CAPSULE BY MOUTH EVERY 12 HOURS NEEDED. Electronically Signed on 05/15/22 12:12 PM Amandeep Caro DO Patient Care team information Personnel Name: Jeannine Fernandes MD Address: Address: [place] [address]- [place] Name: Noreen York
--- OUTSIDE RECORDS SUMMARY | 2022-12-19 08:40 | XMS_ITS | Continuity of Care Document ---
Author Name Unknown Organization [facility] Address [address] [place] [address] Care Team Providers Care Doctor Of Osteopathy Name Role Phone Jeannine Fernandes Primary Care Physician Noreen York Unavailable Unavailable Encounter [facility] Date(s): 09/23/22 - 09/23/[address] [id number] [place] Encounter Diagnosis Left sided abdominal pain(Discharge Diagnosis) - 09/23/22 Unspecified abdominal pain(Final) - Discharge Disposition: Home or Self Care Attending Physician: Sang Dutton MD Admitting Physician: Sang Dutton MD Allergies, Adverse Reactions, Alerts Substance Reaction Severity Status codeine Rapid heart beat Unknown Active azithromycin Skin rash Unknown Active Assessment and Plan Future Appointments Future Scheduled Tests Laboratory* Comprehensive Metabolic Panel 07/02/22 * Magnesium Level 05/22/22 * Calcium Level Ionized 07/02/22 Functional Status 09/23/22 Other exposure to Infectious Disease Non e [...] Daily, # 30 tab, 5 Refill(s), Pharmacy: [id number], 161, cm, 05/12/2220:25:00 EST, Height/Length Dosing, 77.5, kg, 05/12/22 20:25:00 EST, Weight Dosing Start Date: 05/15/22 Status: Ordered aspirin 81 mg oral tablet, chewable 81 mg = 1 tab, Oral, Daily, # 90 tab, 0 Refill(s), Pharmacy: [facility], 160, cm, 06/14/22 22:46:00 EST, Height/Length Dosing, 83, kg, 06/14/22 22:46:00 EST, Weight Dosing Start Date: 08/28/22 Status: Ordered atorvastatin 40 mg oral tablet 1 tab, Oral, Daily, # 84 tab, 0 Refill(s), Pharmacy: [facility] [id number], 160, cm, 06/14/22 22:46:00 EST, Height/Length Dosing, 83, kg, 06/14/22 22:46:00 EST, Weight Dosing Start Date: 08/24/22 Status: Ordered BD Pen Needle Mini U/F 31G X 5 MM MISC BD Pen Needle Mini U/F 31G X 5 MM MISC, See Instructions, USE FOUR TIMES A DAY DIRECTED, # 100 EA, 2 Refill(s), Pharmacy: [facility] [id number], 160, cm, 06/14/22 22:46:00 EST, Height/Length Dosing, 83, kg, 06/14/22 22:46:00 EST, Weight Dosing Start Date: 07/26/22 Status: Ordered BD UF MINI PEN NEEDLE [id number] BD UF MINI PEN NEEDLE [id number], See Instructions, USE DIRECTED FOUR TIMES A DAY NEEDED, # 100 EA, 3 Refill(s), Pharmacy: [facility] Start Date: 02/24/22 Status: Ordered BD UF Pen Needle Mini [id number] BD UF Pen Needle Mini 17Md1xi, Use one needle for each injection daily. (current Injections are 4 times daily), Supply, See instructions, # 100 EA, 2 Refill(s), Pharmacy: [facility] Start Date: 01/16/22 Status: Ordered doxycycline monohydrate 100 mg oral capsule 100 mg = 1 cap, Oral, every 12 hr, # 6 cap, 0 Refill(s), Pharmacy: [facility], 168, cm, 09/01/22 14:46:00 EDT, Height/Length Dosing, 66.2, kg, 09/01/22 14:46:00 EDT, Weight Dosing Start Date: 09/03/22 Stop Date: 09/06/22 Status: Ordered ferrous gluconate 324 mg (38 mg elemental iron) oral tablet 324 mg = 1 tab, Oral, Daily, # 90 tab, 0 Refill(s), Pharmacy: [facility], 160, cm, 08/31/22 11:50:00 EDT, Height/Length Dosing, 36.2, kg, 08/31/22 11:50:00 EDT, Weight Dosing Start Date: 09/01/22 Status: Ordered ferrous gluconate 324 mg (38 mg elemental iron) oral tablet 324 mg = 1 tab, Oral, Daily Start Date: 12/17/21 Status: Ordered folic acid 1 mg oral tablet 1 mg = 1 tab, Oral, Daily, # 90 tab, 0 Refill(s), Pharmacy: [facility], 160, cm, 08/31/22 11:50:00 EDT, Height/Length Dosing, 36.2, kg, 08/31/22 11:50:00 EDT, Weight Dosing Start Date: 09/01/22 Status: Ordered Glucerna Glucerna, Twice a day, Supply, See instructions, # 60 EA, 3 Refill(s), Pharmacy: [facility] Start Date: 07/13/22 Status: Ordered Levemir FlexTouch 100 units/mL subcutaneous solution 15 units =, Subcutaneous, every night at bedtime Start Date: 05/13/22 Status: Ordered magnesium oxide 400 mg (241.3 mg elemental magnesium) oral tablet 1 tab, Oral, BID, # 56 tab, 3 Refill(s), Pharmacy: [facility] [id number], 168, cm, 09/01/22 14:46:00 EDT, Height/Length Dosing, 66.2, kg, 09/01/22 14:46:00 EDT, Weight Dosing Start Date: 09/22/22 Status: Ordered Melatonin 3 mg oral tablet 1 tab, Oral, every night at bedtime, # 28 tab, 3 Refill(s), Pharmacy: [facility] [id number], 168, cm, 09/01/22 14:46:00 EDT, Height/Length Dosing, [...] DAY, # 90 tab, 3 Refill(s), Pharmacy: [facility] Start Date: 01/01/22 Status: Ordered mupirocin 2% topical ointment See Instructions, APPLY A SMALL AMOUNT TOPICALLY TO AFFECTED AREA(S) THREE TIMES A DAY, # 22 g, 1 Refill(s), Pharmacy: [facility] Start Date: 03/23/22 Status: Ordered nitroglycerin 0.4 mg sublingual tablet 0.4 mg = 1 tab, SL, every 5 min, not to exceed 3 doses/15 min--if pain persists, seek medical attention, # 30 tab, 0 Refill(s), Pharmacy: [facility], 160, cm, 06/14/22 22:46:00 EST, Height/Length Dosing, 83, kg, 06/14/22 22:46:00 EST, We... Start Date: 06/18/22 Status: Ordered NovoLOG FlexPen 100 units/mL injectable solution 5 units =, Subcutaneous, TID(AC), # 10 mL, 0 Refill(s), Pharmacy: [facility], 168, cm, 05/16/22 21:31:00 EST, Height/Length Dosing, 70, kg, 05/16/22 21:31:00 EST, Weight Dosing Start Date: 06/04/22 Status: Ordered Onetouch Ultra Blue Test Strips Onetouch Ultra Blue Test Strips, use as directed four times daily, Supply, See instructions, # 300 EA, 12 Refill(s), Pharmacy: [facility] Start Date: 07/27/22 Status: Ordered oxybutynin 5 mg oral tablet 5 mg = 1 tab, Oral, BID, PRN as needed for urinary discomfort, 2-3 TIMES DAILY NEEDED, # 30 tab,0 Refill(s), [facility], 168, cm, 05/16/22 21:31:00 EST, Height/Length Dosing, 70, kg, 05/16/22 21:31:00 EST, Weight Dosing Start Date: 06/04/22 Status: Ordered pantoprazole 40 mg oral delayed release tablet 40 mg = 1 tab, Oral, Daily Start Date: 05/13/22 Status: Ordered propranolol 20 mg oral tablet 3 tab, Oral, BID, # 168 tab, 0 Refill(s), Pharmacy: [facility] [id number], 160, cm, 06/14/22 22:46:00 EST, Height/Length Dosing, 83, kg, 06/14/22 22:46:00 EST, Weight Dosing Start Date: 08/24/22 Status: Ordered venlafaxine 150 mg oral capsule, extended release 150 mg = 1 cap, Oral, Daily, # 90 cap, 3 Refill(s), [facility], [facility], cm, 08/31/22 11:50:00 EDT, Height/Length Dosing, 36.2, kg, 08/31/22 11:50:00 EDT, Weight Dosing Start Date: 09/01/22 Status: Ordered Vitamin B2 100 mg oral tablet See Instructions, TAKE 1 TABLET BY MOUTH DAILY, # 84 tab, 2 Refill(s), Pharmacy: [id number], 168, cm, 09/01/22 14:46:00 EDT, Height/Length Dosing, [...] Pylori, negative Results Laboratory List Name Date Urinalysis Microscopic 09/23/22 Urinalysis with Micro if Indicated and C ulture if Indicated 09/23/22 Basic Metabolic Panel 09/23/22 Beta Hydroxybutyrate 09/23/22 CBC w/ Diff 09/23/22 Comprehensive Metabolic Panel 09/23/22 Lipase Level 09/23/22 Troponin-I 09/23/22 Automated Diff 09/23/22 Most recent to oldest [Reference Range]: 1 2 WBC [5.0-10.0 x10^3/mcL] 7.2 x10^3/mcL (09/23/22 5:42 PM) RBC [4.1-5.3 x10^6/mcL] 4.1 x10^6/mcL (09/23/22 5:42 PM) Neutro Auto [40.0-75.0 %] 62.9 % (09/23/22 5:42 PM) Lymph Auto [20.0-50.0 %] 21.7 % (09/23/22 5:42 PM) Tripp Auto [2.0-15.0 %] 9.3 % (09/23/22 5:42 PM) Basophil Auto [0.0-1.0 %] 0.7 % (09/23/22 5:42 PM) BUN [7-18 mg/dL] 52 mg/dL *HI* (09/23/22 7:43 PM) 55 mg/dL *HI* (09/23/22 5:42 PM) UA Color Yellow (09/23/22 9:18 PM) UA WBC [0-3] 5-10 *ABN* (09/23/22 9:18 PM) Glucose Level [74-106 mg/dL] 209 mg/dL *HI* (09/23/22 7:43 PM) 235 mg/dL *HI* (09/23/22 5:42 PM) Potassium Level [3.5-5.1 mmol/L] 4.7 mmo l/L (09/23/22 7:43 PM) 4.4 mmol/L (09/23/22 5:42 PM) MCV [80.0-96.0] 92.4 (09/23/22 5:42 PM) UA Urobilinogen Normal (09/23/22 9:18 PM) UA Bili [Negative] Negative (09/23/22 9:18 PM) UA Ketones Negative (09/23/22 9:18 PM) AST [15-37 unit/L] 14 unit/L *LOW* (09/23/22 5:42 PM) ALT [14-59 unit/L] 12 unit/L *LOW* (09/23/22 5:42 PM) MCHC [31.0-35.0 g/dL] 33.1 g/dL (09/23/22 5:42 PM) Troponin-I [0.0-51.4 pg/mL] 34.6 pg/mL (09/23/22 5:42 PM) Sodium Level [136-145 mmol/L] 130 mmol/L *LOW* (09/23/22 7:43 PM) 133 mmol/L *LOW* (09/23/22 5:42 PM) UA RBC [0-2] 3-5 (09/23/22 9:18 PM) UA Leuk Est 1+ *ABN* (09/23/22 9:18 PM) UA Nitrite Negative (09/23/22 9:18 PM) UA Glucose [Negative] 1+ *ABN* (09/23/22 9:18 PM) Hct [37.0-47.0 %] 37.8 % (09/23/22 5:42 PM) UA Bacteria None Seen /HPF (09/23/22 9:18 PM) Lipase Level [16-77 unit/L] 70 unit/L (09/23/22 5:42 PM) Calcium Level [8.5-10.1 mg/dL] 11.9 mg/d L *HI* (09/23/22 7:43 PM) 13.0 mg/dL 1 *CRIT* (09/23/22 5:42 PM) Albumin Level [3.4-5.0 g/dL] 3.2 g/dL *LOW* (09/23/22 5:42 PM) Protein Total [6.4-8.2 g/dL] 7.8 g/dL (09/23/22 5:42 PM) UA Protein Negative (09/23/22 9:18 PM) MCH [26.0-32.0 pg] 30.6 pg (09/23/22 5:42 PM) Neutro Absolute 4.5 x10^3/mcL *NA* (09/23/22 5:42 PM) Bilirubin Total [0.2-1.0 mg/dL] 0.5 mg/d L (09/23/22 5:42 PM) Hgb [12.0-16.0 g/dL] 12.5 g/dL (09/23/22 5:42 PM) Alk Phos [46-146 unit/L] 120 unit/L (09/23/22 5:42 PM) UA Blood 1+ *ABN* (09/23/22 9:18 PM) UA Mucous None Seen /HPF (09/23/22 9:18 PM) UA Spec Grav <=1.005 *NA* (09/23/22 9:18 PM) Platelets [130-450 x10^3/mcL] 166 x10^3/ mcL (09/23/22 5:42 PM) CO2 [21-32 mmol/L] 27 mmol/L (09/23/22 7:43 PM) 29 mmol/L (09/23/22 5:42 PM) UA Squam Epithelial [None Seen] Few *ABN* (09/23/22 9:18 PM) UA pH 5.5 *NA* (09/23/22 9:18 PM) eGFR Non-AA [>=60] 21 *LOW* (09/23/22 7:43 PM) 18 *LOW* (09/23/22 5:46 PM) eGFR AA [>=60] 21 *LOW* (09/23/22 7:43 PM) 18 *LOW* (09/23/22 5:46 PM) UA Appear Clear (09/23/22 9:18 PM) Chloride Level [98-107 mmol/L] 96 mmol/L *LOW* (09/23/22 7:43 PM) 95 mmol/L *LOW* (09/23/22 5:42 PM) RDW-CV [11.7-17.0 %] 14.3 % (09/23/22 5:42 PM) Imm Gran Auto [0.0-0.9 %] 0.8 % (09/23/22 5:42 PM) UA Culture Ind?. Indicated (09/23/22 9:18 PM) Creatinine Level [0.55-1.02 mg/dL] 2.33 mg/dL *HI* (09/23/22 7:43 PM) 2.68 mg/dL *HI* (09/23/22 5:42 PM) Beta-Hydroxybutyrate [0.0-0.5 mmol/L] 0. 4 mmol/L (09/23/22 5:46 PM) Eos, Auto [1.0-6.0 %] 4.6 % (09/23/22 5:42 PM) UA Yeast [None Seen] Many *ABN* (09/23/22 9:18 PM) 1Result Comment: Called to and verbally verified by ED - Ana May RN at 09/23/2022 18:21:59 EDT. Orders for Microbiology Reports Name Date Urine Culture 09/23/22 Microbiology Reports TEST:Urine Culture STATUS:Order in Progress BODY SITE: SOURCE:Urine COLLECTED DATE/TIME:09/23/22 9:18 PM PRELIMINARY REPORT 10,000 - 100,000 cfu/ml Enterobacter cloacae complex Susceptibility to follow. Vital Signs Most recent to oldest [Reference Range]: 1 2 3 Temperature Temporal Artery [36-38 Deg C] 36.3 Deg C (09/23/22 5:13 PM) Peripheral Pulse Rate [60-100 bpm] 64 bpm (09/23/22 8:52 PM) 65 bpm (09/23/22 7:39 PM) 62 bpm (09/23/22 6:36 PM) Respiratory Rate [12-24 br/min] 16 br/min (09/23/22 5:13 PM) Blood Pressure [90-140/60-90 mmHg] 158/76mmHg *HI* (09/23/22 8:20 PM) 135/57mmHg (09/23/22 6:36 PM) 120/64mmHg (09/23/22 5:54 PM) Weight 64.10 kg (09/23/22 5:13 PM) Weight Dosing 64.10 kg (09/23/22 5:19 PM) Height 168.000 cm (09/23/22 5:13 PM) Height/Length Dosing 168.000 cm (09/23/22 5:19 PM) Body Mass Index 23.000 kg/m2 (09/23/22 5:13 PM) Social History Social History Type Response Tobacco Never tobacco user T obacco Use:. Sex Female Hospital Discharge Instructions Patient Education 09/23/2022 20:29:01 Abdominal Pain, Adult, [id number] Abdominal Pain, Adult Many things can cause belly (abdominal) pain. Most times, belly pain is not dangerous. Many cases of belly pain can be watched and treated at home. Sometimes, though, belly pain is serious. Your doctor will try to find the cause of your belly pain. Follow these instructions at home: Medicines ??? Take [id number] and prescription medicines only as told by your doctor. ??? Do not take medicines that help you poop (laxatives) unless told by your doctor. General instructions ??? Watch your belly pain for any changes. ??? Drink enough fluid to keep your pee (urine) pale yellow. ??? Keep all follow-up visits as told by your doctor. This is important. Contact a doctor if: ??? Your belly pain changes or gets worse. ??? You are not hungry, or you lose weight without trying. ??? You are having trouble pooping (constipated) or have watery poop (diarrhea) for more than 2???3days. ??? You have pain when you pee or poop. ??? Your belly pain wakes you up at night. ??? Your pain gets worse with meals, after eating, or with certain foods. ??? You are vomiting and cannot keep anything down. ??? You have a fever. ??? You have blood in your pee. Get help right away if: ??? Your pain does not go away as soon as your doctor says it should. ??? You cannot stop vomiting. ??? Your pain is only in areas of your belly, such as the right side or the left lower part of the belly. ??? You have bloody or black poop, or poop that looks like tar. ??? You have very bad pain, cramping, or bloating in your belly. ??? You have signs of not having enough fluid or water in your body (dehydration), such as: ??? Dark pee, very little pee, or no pee. ??? Cracked lips. ??? Dry mouth. ??? Sunken eyes. ??? Sleepiness. ??? Weakness. ??? You have trouble breathing or chest pain. Summary ??? Many cases of belly pain can be watched and treated at home. ??? Watch your belly pain for any changes. ??? Take ndgv-dxq-dedvdur and prescription medicines only as told by your doctor. ??? Contact a doctor if your belly pain changes or gets worse. ??? Get help right away if you have very bad pain, cramping, or bloating in your belly. This information is not intended to replace advice given to you by your health care provider. Make sure you discuss any questions you have with your health care provider. Document Revised: 10/02/2019 Document Reviewed: 10/02/2019 [employer] Patient Education ?? 2021 [employer]. Follow Up Care 09/23/2022 17:13:06 With:Jeannine Fernandes MD Address: [facility] [place] [address]- When:1 to 2 weeks Physician Emergency department Note * Kolby Samuel MD: PERFORM Event Display: ED Note Physician Authored Date: [id number] MARIA INES BROOKS :1945 Age:77 years Sex:Female Visit Date:09/23/2022 Primary Care Physician: Jeannine Fernandes MD Basic Information Time Seen: oKlby Samuel MD / 09/23/2022 17:18 Chief Complaint N/v/d, generalized abd pain for days, pt BS 214 for EMS. History Of Present Illness: Pleasant 77-year-old female comes in by EMS because of abdominal pain.?? When I asked the patient she tells me her abdomen has been bothering her for about 5 months,??it is more tender to the left ofthe midline,??she has some nausea vomiting and diarrhea but she denies being nauseous right now. ??No GI bleeding no urinary symptoms no chest pain or shortness of breath. ??She is a diabetic and shestates her glucose??has been high at home.?? Patient was admitted at the end of August for DKA. ??She has not seen her doctor??for recheck on??diabetes since she tells me. ??She was seen by??cardiology on 17 September, I read Dr. Alaina Collins's notes.?? 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 Review of Systems: Constitutional:??no??fever,??no??chills,??no??sweats,??no??weakness Skin:??no??Jaundice,??no??rash,? ENMT:??no??ear pain,??no??sore throat,??no??congestion,??no??hoarseness Respiratory:??no??shortness of breath,??no??cough,? Cardiovascular:??no??chest pain,??no??palpitations,? Gastrointestinal:??mild??nausea??but not right now,??no??vomiting,??mild??diarrhea,??some left-sided abdominal pain Genitourinary:??no??dysuria,??no??hematuria,??no??discharge,??no??pain Musculoskeletal:??no??back pain,??no??trauma Neurologic:??no??headache,? Physical Exam Vitals & Measurements T:??36.3?C ??(Temporal Artery)?? HR:??64??(Peripheral)?? RR:??16?? BP:??158/76?? SpO2:??97%?? HT:??168.000??cm?? WT:??64.10??kg?? BMI:??23.000?? Pain Score:??9?? O2 Therapy:??Room air?? General:??alert,??no acute distress. Skin:??warm,??dry. Head:??no??trauma,??normocephalic. Neck:??trachea??midline,??no??adenopathy,??no??tenderness. Eye:??normal??conjunctiva, sclera??clear. Cardiovascular:??regular??rate and rhythm,??normal??peripheral perfusion.?? 2-3 on 6 heart murmur systolic noted Respiratory: lungs??CTA, respirations??non-labored. Chest wall:??no??deformity. Gastrointestinal:??soft,??non distended,??mild left??upper abdominal pain, no guarding or rebound or mass palpated.?? Greene's negative, McBurney's negative. Extremities:??no??deformity,??no??trauma.?? No signs of DVT. Neurological:??oriented??x 4, LOC??appropriate for age,?? , speech??normal. Psychiatric:??cooperative, affect??appropriate for age,?? Medical Decision Making: Here the patient's calcium was in the moderate hypercalcemia range,??IV fluids were administered for this.?? She has had this in the past. ?? Repeat??calcium was 11.9,??creatinine was slightly improved after liter of fluid, she has known chronic kidney disease.?? Findings on the CT scan were reviewed with the patient. ??She has had somediscomfort for 5 months,??eating does not seem to make it worse, I discussed??with her the need forpotential follow-up colonoscopy. ??I recommended??she follow-up with her doctor to discuss this,??notably with the potential findings in the rectum although she did not have any rectal pain.?? Ultimately discharged in stable condition. Procedure No Qualifying Data Assessment/Plan 1.??Left sided abdominal pain??R10.9 Orders: Urinalysis with Micro if Indicated and Culture if Indicated, Urine, Stat Collect, 09/23/22 17:40:00EDT, Once, Nurse collect, Print Label Patient Education Abdominal Pain, Adult, [id number] Follow Up With When Contact Information Jeannine Fernandes MD Within 1 to 2 [place] [address]- Additional Instructions: Medication Reconciliation Unchanged amLODIPine (amLODIPine 5 mg oral tablet)1 tab Oral (given by mouth) every day. Refills: 5. ?? ascorbic acid (Vitamin C TR 500 mg oral capsule)1 Capsules Oral (given by mouth) every day. ?? aspirin (aspirin 81 mg oral tablet, chewable)1 tab Oral (given by mouth) every day. Refills: 0. ?? atorvastatin (atorvastatin 40 mg oral tablet)1 tab Oral (given by mouth) every day. Refills: 0. ?? doxycycline (doxycycline monohydrate 100 mg oral capsule)1 Capsules Oral (given by mouth) every 12 hours for 3 Days. Refills: 0. ?? Durable Medical Equipment for Prescription (BD UF Pen Needle Mini [id number])Use one needle for each injection daily. (current Injections are 4 times daily). Refills: 2. ?? Durable Medical Equipment for Prescription (Glucerna)Twice a day. Refills: 3. ?? Durable Medical Equipment for Prescription (Onetouch Ultra Blue Test Strips)use as directed four times daily. Refills: 12. ?? ferrous gluconate (ferrous gluconate 324 mg (38 mg elemental iron) oral tablet)1 tab Oral (given bymouth) every day. ?? ferrous gluconate (ferrous gluconate 324 mg (38 mg elemental iron) oral tablet)1 tab Oral (given bymouth) every day. Refills: 0. ?? folic acid (folic acid 1 mg oral tablet)1 tab Oral (given by mouth) every day. Refills: 0. ?? insulin aspart (NovoLOG FlexPen 100 units/mL injectable solution)5 Units Subcutaneous (under the skin) 3 times a day before meals. Refills: 0. ?? insulin detemir (Levemir FlexTouch 100 units/mL subcutaneous solution)15 Units Subcutaneous (under the skin) every night at bedtime. ?? magnesium oxide (magnesium oxide 400 mg (241.3 mg elemental magnesium) oral tablet)1 tab Oral (given by mouth) 2 times a day. Refills: 3. ?? melatonin (Melatonin 3 mg oral tablet)1 tab Oral (given by mouth) every night at bedtime. Refills: 3. ?? memantine (memantine 5 mg oral tablet)1 [...] 1. ?? nitroglycerin (nitroglycerin 0.4 mg sublingual tablet)1 tab Sublingual (dissolve under the tongue) every 5 minutes. not to exceed 3 doses/15 min--if pain persists, seek medical attention. Refills: 0. ?? Other Prescription (BD Pen Needle Mini U/F 31G X 5 MM MISC)USE FOUR TIMES A DAY DIRECTED. Refills: 2. ?? Other Prescription (BD UF MINI PEN NEEDLE 4MDM30S)USE DIRECTED FOUR TIMES A DAY NEEDED. Refills: 3. ?? oxybutynin (oxybutynin 5 mg oral tablet)1 tab Oral (given by mouth) 2 times a day as needed as needed for urinary discomfort. 2-3 TIMES DAILY NEEDED. Refills: 0. ?? pantoprazole (pantoprazole 40 mg oral delayed release tablet)1 tab Oral (given by mouth) every day. ?? propranolol (propranolol 20 mg oral tablet)3 tab Oral (given by mouth) 2 times a day. Refills: 0. ?? riboflavin (Vitamin B2 100 mg oral tablet)TAKE 1 TABLET BY MOUTH DAILY. Refills: 2. ?? venlafaxine (venlafaxine 150 mg oral capsule, extended release)1 Capsules Oral (given by mouth) every day. Refills: 3. Problem List/Past Medical History Ongoing Anemia Anxiety Atrial thrombus Atrophic gastritis Chest pain Chronic kidney disease stage 4 Degenerative joint disease of shoulder region Delirium Depressive disorder Disease caused by 2019 novel coronavirus Essential tremor Gastroesophageal reflux disease GI bleed Hyperlipidemia Hyperosmolality Hypertensive disorder Idiopathic osteoarthritis Irritable bowel syndrome with diarrhea Migraine Obesity Posttraumatic stress disorder Recurrent major depression Renal mass Type 2 diabetes mellitus without complication Urinary incontinence Urinary tract infectious disease Historical No qualifying data Procedure/Surgical History ???Colonoscopy (11/23/2014)???Ventral Hernia Repair (01/18/2012)???EGD - Esophagogastroduodenoscopy(06/13/2008)???Oophorectomy- left (06/07/2003)???Appendectomy (06/07/1979)???Oophorectomy-right (06/1979)???Cholecystectomy (06/07/1973)???Total abdominal hysterectomy (06/07/1971) Medication Administration Given 0.9% NaCl bolus, 1 L, IV Bolus Allergies azithromycin??(Skin rash) codeine??(Rapid heart beat) Social [...] BROTHER, at age: Unknown. Cause of : Diagnostic Results ECG EKG shows sinus rhythm at a rate of 65 bpm,??has some ST elevation appearance in V1 V2 but this is likely due to LVH and it was present on previous EKGs and it is not new. Lab Results CBC and Differential?? LATEST RESULTS?? HISTORICAL RESULTS?? WBC?? 09/23/22 17:42?? 7.2?? 09/02/22?? 4.8 ??Low?? RBC?? 09/23/22 17:42?? 4.1?? 09/02/22?? 3.8 ??Low?? Hgb?? 09/23/22 17:42?? 12.5?? 09/02/22?? 11.3 ??Low?? Hct?? 09/23/22 17:42?? 37.8?? 09/02/22?? 34.4 ??Low?? MCV?? 09/23/22 17:42?? 92.4?? 09/02/22?? 91.7?? MCH?? 09/23/22 17:42?? 30.6?? 09/02/22?? 30.1?? MCHC?? 09/23/22 17:42?? 33.1?? 09/02/22?? 32.8?? RDW-CV?? 09/23/22 17:42?? 14.3?? 09/02/22?? 13.3?? Platelets?? 09/23/22 17:42?? 166?? 09/02/22?? 103 ??Low?? Neutro Auto?? 09/23/22 17:42?? 62.9?? 09/02/22?? 58.4?? Lymph Auto?? 09/23/22 17:42?? 21.7?? 09/02/22?? 26.4?? Tripp Auto?? 09/23/22 17:42?? 9.3?? 09/02/22?? 10.7?? Eos, Auto?? 09/23/22 17:42?? 4.6?? 09/02/22?? 4.1?? Basophil Auto?? 09/23/22 17:42?? 0.7?? 09/02/22?? 0.2?? Imm Gran Auto?? 09/23/22 17:42?? 0.8?? 09/02/22?? 0.2?? Neutro Absolute?? 09/23/22 17:42?? 4.5?? 09/02/22?? 2.7? Routine Chemistry?? LATEST RESULTS?? HISTORICAL RESULTS?? Sodium Level?? 09/23/22 19:43?? 130 ??Low?? 09/02/22?? 140?? Potassium Level?? 09/23/22 19:43?? 4.7?? 09/02/22?? 3.8?? Chloride Level?? 09/23/22 19:43?? 96 ??Low?? 09/02/22?? 106?? CO2?? 09/23/22 19:43?? 27?? 09/02/22?? 24?? Alk Phos?? 09/23/22 17:42?? 120?? 09/01/22?? 89?? AST?? 09/23/22 17:42?? 14 ??Low?? 09/01/22?? 34?? ALT?? 09/23/22 17:42?? 12 ??Low?? 09/01/22?? 13 ??Low?? BUN?? 09/23/22 19:43?? 52 ??High?? 09/02/22?? 39 ??High?? Glucose Level?? 09/23/22 19:43?? 209 ??High?? 09/02/22?? 173 ??High?? Creatinine Level?? 09/23/22 19:43?? 2.33 ??High?? 09/02/22?? 2.31 ??High?? eGFR AA?? 09/23/22 19:43?? 21 ??Low?? 09/02/22?? 21 ??Low?? eGFR Non-AA?? 09/23/22 19:43?? 21 ??Low?? 09/02/22?? 21 ??Low?? Calcium Level?? 09/23/22 19:43?? 11.9 ??High?? 09/02/22?? 10.8 ??High?? Protein Total?? 09/23/22 17:42?? 7.8?? 09/01/22?? 6.4?? Albumin Level?? 09/23/22 17:42?? 3.2 ??Low?? 09/01/22?? 2.7 ??Low?? Bilirubin Total?? 09/23/22 17:42?? 0.5?? 09/01/22?? 0.4?? Beta-Hydroxybutyrate?? 09/23/22 17:46?? 0.4?? 08/31/22?? 4.4 ??High?? Lipase Level?? 09/23/22 17:42?? 70?? 06/14/22?? 58? Cardiac Isoenzymes?? LATEST RESULTS?? HISTORICAL RESULTS?? Troponin-I?? 09/23/22 17:42?? 34.6?? 08/31/22?? 490.8 ??Critical? Electronically Signed on 09/23/22 09:30 PM Kolby Samuel MD Emergency department Discharge instructions * Kolby Samuel MD: PERFORM Event Display: ED Discharge Information Authored Date: [id number] MARIA INES BROOKS :1945 Age:77 years Sex:Female Visit Date:09/23/2022 Primary Care Physician: Jeannine Fernandes MD Discharge Instructions We would like to thank you for allowing us to assist you with your healthcare needs. The following includes patient education materials and information regarding your injury/illness. Diagnosis from Today's Visit Left sided abdominal pain Discharge Vitals Temperature??(Temporal Artery) 97.3 ??F (36.3 ??C) Heart Rate??(Peripheral) 64 Respiratory Rate?? 16 Blood Pressure?? 158/76?? Height?? 66.14 in (168.000 cm) Weight?? 141.34 lb (64.10 kg) BMI?? 23.000 Allergies azithromycin??(Skin rash) codeine??(Rapid heart beat) What to Do Next Instructions from Your Care Team Follow-up with your doctor to discuss further testing such as setting up a colonoscopy,??there was some narrowing of the??lower rectal area noted on CAT scan. ??Otherwise no obvious explanation for your left-sided abdominal pain.?? You may take some Tylenol as needed. You Need to Schedule the Following Appointments Follow Up with??Jeannine Fernandes MD When:??Within 1 to 2 weeks Where: [place] [address]- Upcoming Scheduled Appointments Wednesday 10:00 AM EDT ?? You were [...] Oral (given by mouth) Every day Unchanged doxycycline (doxycycline monohydrate 100 mg oral capsule) 1 Capsules Oral (given by mouth) Every 12 hours Duration: 3 Days Unchanged Durable Medical Equipment for Prescription (BD UF Pen Needle Mini [id number]) See instructions DM2 (diabetes mellitus, type 2) [...] Other Prescription (BD UF MINI PEN NEEDLE [id number]) See instructions USE DIRECTED FOUR TIMES A [...] Capsules Oral (given by mouth) Every day Education Materials Abdominal Pain, Adult Many things can cause belly (abdominal) pain. Most times, belly pain is not dangerous. Many cases of belly pain can be watched and treated at home. Sometimes, though, belly pain is serious. Your doctor will try to find the cause of your belly pain. Follow these instructions at home: Medicines ? Take uhpk-dbq-ofclgts and prescription medicines only as told by your doctor. ? Do not take medicines that help you poop (laxatives) unless told by your doctor. General instructions ? Watch your belly pain for any changes. ? Drink enough fluid to keep your pee (urine) pale yellow. ? Keep all follow-up visits as told by your doctor. This is important. Contact a doctor if: ? Your belly pain changes or gets worse. ? You are not hungry, or you lose weight without trying. ? You are having trouble pooping (constipated) or have watery poop (diarrhea) for more than 2???3 days. ? You have pain when you pee or poop. ? Your belly pain wakes you up at night. ? Your pain gets worse with meals, after eating, or with certain foods. ? You are vomiting and cannot keep anything down. ? You have a fever. ? You have blood in your pee. Get help right away if: ? Your pain does not go away as soon as your doctor says it should. ? You cannot stop vomiting. ? Your pain is only in areas of your belly, such as the right side or the left lower part of the belly. ? You have bloody or black poop, or poop that looks like tar. ? You have very bad pain, cramping, or bloating in your belly. ? You have signs of not having enough fluid or water in your body (dehydration), such as: ? Dark pee, very little pee, or no pee. ? Cracked lips. ? Dry mouth. ? Sunken eyes. ? Sleepiness. ? Weakness. ? You have trouble breathing or chest pain. Summary ? Many cases of belly pain can be watched and treated at home. ? Watch your belly pain for any changes. ? Take svgi-jod-soejtjr and prescription medicines only as told by your doctor. ? Contact a doctor if your belly pain changes or gets worse. ? Get help right away if you have very bad pain, cramping, or bloating in your belly. This information is not intended to replace advice given to you by your health care provider. Make sure you discuss any questions you have with your health care provider. Document Revised: 10/02/2019 Document Reviewed: 10/02/2019 [employer] Patient Education ?? 2021 [employer] Tests Performed Medications and Immunizations Administered Given 0.9% NaCl bolus, 1 L, IV Bolus Lab Test Name Test Result Date/Time WBC 7.2 x10^3/mcL 09/23/2022 17:42 EDT RBC 4.1 x10^6/mcL 09/23/2022 17:42 EDT Hgb 12.5 g/dL 09/23/2022 17:42 EDT Hct 37.8 % 09/23/2022 17:42 EDT MCV 92.4 09/23/2022 17:42 EDT MCH 30.6 pg 09/23/2022 17:42 EDT MCHC 33.1 g/dL 09/23/2022 17:42 EDT RDW-CV 14.3 % 09/23/2022 17:42 EDT Platelets 166 x10^3/mcL 09/23/2022 17:42 EDT Neutro Auto 62.9 % 09/23/2022 17:42 EDT Lymph Auto 21.7 % 09/23/2022 17:42 EDT Tripp Auto 9.3 % 09/23/2022 17:42 EDT Eos, Auto 4.6 % 09/23/2022 17:42 EDT Basophil Auto 0.7 % 09/23/2022 17:42 EDT Imm Gran Auto 0.8 % 09/23/2022 17:42 EDT Neutro Absolute 4.5 x10^3/mcL 09/23/2022 17:42 EDT Sodium Level 130 mmol/L 09/23/2022 19:43 EDT Potassium Level 4.7 mmol/L 09/23/2022 19:43 EDT Chloride Level 96 mmol/L 09/23/2022 19:43 EDT CO2 27 mmol/L 09/23/2022 19:43 EDT Alk Phos 120 unit/L 09/23/2022 17:42 EDT AST 14 unit/L 09/23/2022 17:42 EDT ALT 12 unit/L 09/23/2022 17:42 EDT BUN 52 mg/dL 09/23/2022 19:43 EDT Glucose Level 209 mg/dL 09/23/2022 19:43 EDT Creatinine Level 2.33 mg/dL 09/23/2022 19:43 EDT eGFR AA 21 09/23/2022 19:43 EDT eGFR Non-AA 09/23/2022 19:43 EDT Calcium Level 11.9 mg/dL 09/23/2022 19:43 EDT Protein Total 7.8 g/dL 09/23/2022 17:42 EDT Albumin Level 3.2 g/dL 09/23/2022 17:42 EDT Bilirubin Total 0.5 mg/dL 09/23/2022 17:42 EDT Beta-Hydroxybutyrate 0.4 mmol/L 09/23/2022 17:46 EDT Lipase Level 70 unit/L 09/23/2022 17:42 EDT Troponin-I 34.6 pg/mL 09/23/2022 17:42 EDT Patient/Contract Agent Signature Patient Name:MARIA INES BROOKS I have received this information and my questions have been answered. Patient/Contract Agent Name: Patient/Contract Agent Signature: Relationship to Patient: Witness Name/Signature: Date: Electronically Signed on: 09/23/2022 21:30 EDTSigned by:[email or web address] Emergency department Note * Lucy Bahena: PERFORM Event Display: ED Notes Authored Date: [id number] Patient Care team information Care Team Personnel Name: Jeannine Fernandes MD Position: Physician Member Role: Informed Provider Address: Address: [address] Name: Nithin Bellamy AUDIO PRODUCTION ENGINEER Position: Physician Member Role: Nurse Practitioner Address: Address: [facility] [address] Name: Noreen York Position: Ambulatory - RN/PER DIEM PHYSICAL THERAPIST (Sanjay) Member Role: Speech Therapist Name: Grupo Walters NP Position: Physician Member Role: Nurse Practitioner Name: Kolby Samuel MD Position: Physician Member Role: ED Physician Address: Address: [address] [place] [address] Name: Nissa Jones Position: Nurse Member Role: ED Nurse Care Team Related Persons Name: ROMAN EARL Address: [place] [address] Address: [address] [phone] Name: ROMAN EARL Address: [place] [id number] Address: [address] [phone]
--- OUTSIDE RECORDS SUMMARY | 2022-12-19 08:40 | XMS_ITS | Continuity of Care Document ---
Author Name Unknown Organization [facility] Address [address] [place] [address] Care Team Providers Care Temperature Inspector Name Role Phone Jeannine Fernandes Primary Care Physician Noreen York Unavailable Unavailable Encounter [id number] Date(s): 06/14/22 - 06/15/22 [facility] [address] [place] [address] Discharge Disposition: Home or Self Care Attending Physician: Chun Vega MD Admitting Physician: Chun Vega MD Allergies, Adverse Reactions, Alerts Substance Reaction Severity Status codeine Rapid heart beat Unknown Active azithromycin Skin rash Unknown Active Assessment and Plan Future Appointments Future Scheduled Tests Laboratory* CBC w/ Diff 06/11/22 * CBC w/ Diff 05/06/22 * Comprehensive Metabolic Panel 06/11/22 * Comprehensive Metabolic Panel 05/06/22 * Magnesium Level 05/22/22 * Urinalysis with Micro if Indicated and Culture if Indicated 05/07/22 * CBC w/o Diff 05/22/22 * Urinalysis Notify Lab 05/07/22 Functional Status 06/14/22 Recent Travel History No recent travel Other exposure to Infectious Disease Non e Immunizations Given and Recorded Vaccine Date Status Refusal Reason influenza virus vaccine, inactivated 04/09/22 Give n influenza virus vaccine, inactivated 04/21/13 Amaury rded influenza virus vaccine, inactivated 03/21/12 Amaury rded influenza virus vaccine, inactivated 02/27/11 Amaury rded influenza virus vaccine, inactivated 03/19/10 Amaury rded influenza virus vaccine, inactivated 05/28/09 Amuary rded influenza virus vaccine, inactivated 04/21/07 Amaury [...] Daily, # 30 tab, 5 Refill(s), Pharmacy: [id number], 161, cm, 05/12/2220:25:00 EST, Height/Length Dosing, 77.5, kg, 05/12/22 20:25:00 EST, Weight Dosing Start Date: 05/15/22 Status: Ordered atorvastatin 40 mg oral tablet 40 mg = 1 tab, Oral, Daily, # 90 tab, 0 Refill(s), [place] [facility] [place], [place], cm, 05/16/22 21:31:00 EST, Height/Length Dosing, 70, kg, 05/16/22 21:31:00 EST, Weight Dosing Start Date: 06/04/22 Status: Ordered BD UF MINI PEN NEEDLE [id number] BD UF MINI PEN NEEDLE [id number], See Instructions, USE DIRECTED FOUR TIMES A DAY NEEDED, # 100 EA, 3 Refill(s), Pharmacy: [id number] Start Date: 02/24/22 Status: Ordered BD UF Pen Needle Mini [id number] BD UF Pen Needle Mini [id number], Use one needle for each injection daily. (current Injections are 4 times daily), Supply, See instructions, # 100 EA, 2 Refill(s), Pharmacy: [id number] Start Date: 01/16/22 Status: Ordered ferrous gluconate 324 mg (38 mg elemental iron) oral tablet 324 mg = 1 tab, Oral, Daily Start Date: 12/17/21 Status: Ordered folic acid 1 mg oral tablet 1 mg = 1 tab, Oral, Daily, # 90 tab, 0 Refill(s), Pharmacy: [facility] [place], 168, cm, 06/09/22 9:44:00 EST, Height/Length Dosing, 69.4, kg, 06/09/22 9:44:00 EST, Weight Dosing Start Date: 06/09/22 Status: Ordered Glucagon Emergency Kit for Low Blood Sugar 1 mg injection 0 Refill(s) Start Date: 05/04/22 Status: Ordered Levemir FlexTouch 100 units/mL subcutaneous solution 15 units =, Subcutaneous, every night at bedtime Start Date: 05/13/22 Status: Ordered levoFLOXacin 250 mg oral tablet 250 mg = 1 tab, Oral, every 48 hr, # 5 tab, 0 Refill(s), [facility] [place], 168, cm, 06/10/22 8:59:00 EST, Height/Length Dosing, 74, kg, 06/10/22 8:59:00 EST, Weight Dosing Start Date: 06/10/22 Stop Date: 06/20/22 Status: Ordered loperamide 2 mg oral capsule 2 mg = 1 cap, Oral, every 4 hr, PRN as needed for loose stool, # 60 cap, 2 Refill(s), Pharmacy: [facility] [place], 168, cm, 05/16/22 21:31:00 EST, Height/Length Dosing, 70, kg, 05/16/22 21:31:00 EST, Weight Dosing Start Date: 06/04/22 Status: Ordered magnesium oxide 400 mg (241.3 mg elemental magnesium) oral tablet 400 mg = 1 tab, Oral, BID, # 60 tab, 3 Refill(s), [place] [facility] [place], cm, 05/16/22 21:31:00 EST, Height/Length Dosing, [...] DAY, # 90 tab, 3 Refill(s), Pharmacy: [facility] Start Date: 01/01/22 Status: Ordered mupirocin 2% topical ointment See Instructions, APPLY A SMALL AMOUNT TOPICALLY TO AFFECTED AREA(S) THREE TIMES A DAY, # 22 g, 1 Refill(s), Pharmacy: [facility] Start Date: 03/23/22 Status: Ordered nitroglycerin 0.4 mg sublingual tablet SL, every 5 min, not to exceed 3 doses/15 min--if pain persists, seek medical attention Start Date: 12/17/21 Status: Ordered NovoLOG FlexPen 100 units/mL injectable solution 5 units =, Subcutaneous, TID(AC), # 10 mL, 0 Refill(s), Pharmacy: [facility] [place], 168, cm, 05/16/22 21:31:00 EST, Height/Length Dosing, [...] DAILY NEEDED, # 30 tab,0 Refill(s), [place]acy[place] [facility] [place], [place], cm, 05/16/22 21:31:00 EST, Height/Length Dosing, [...] Results Laboratory List Name Date Urinalysis Microscopic 06/15/22 Urinalysis with Microscopic 06/15/22 Automated Diff 06/14/22 CBC w/ Diff 06/14/22 Comprehensive Metabolic Panel (CMP) Lactic Acid 06/14/22 Lipase Level 06/14/22 Troponin-I 06/14/22 Most recent to oldest [Reference Range]: 1 WBC [5.0-10.0 x10^3/mcL] 5.1 x10^3/mcL (06/14/22 10:55 PM) RBC [4.1-5.3 x10^6/mcL] 3.2 x10^6/mcL *LOW* (06/14/22 10:55 PM) Neutro Auto [40.0-75.0 %] 53.4 % (06/14/22 10:55 PM) Lymph Auto [20.0-50.0 %] 27.1 % (06/14/22 10:55 PM) [place] Auto [2.0-15.0 %] 11.0 % (06/14/22 10:55 PM) Basophil Auto [0.0-1.0 %] 1.2 % *HI* (06/14/22 10:55 PM) BUN [7-18 mg/dL] 37 mg/dL *HI* (06/14/22 10:55 PM) UA Color Yellow (06/15/22 12:30 AM) UA WBC [0-3] 0-3 (06/15/22 12:30 AM) Glucose Level [74-106 mg/dL] 124 mg/dL *HI* (06/14/22 10:55 PM) Potassium Level [3.5-5.1 mmol/L] 4.5 mmo l/L (06/14/22 10:55 PM) MCV [80.0-96.0] 97.8 *HI* (06/14/22 10:55 PM) UA Urobilinogen Normal (06/15/22 12:30 AM) UA Bili [Negative] Negative (06/15/22 12:30 AM) UA Ketones Negative (06/15/22 12:30 AM) AST [15-37 unit/L] 19 unit/L (06/14/22 10:55 PM) ALT [14-59 unit/L] 7 unit/L *LOW* (06/14/22 10:55 PM) MCHC [31.0-35.0 g/dL] 32.1 g/dL (06/14/22 10:55 PM) Troponin-I [0.0-51.4 pg/mL] 21.5 pg/mL (06/14/22 10:55 PM) Sodium Level [136-145 mmol/L] 138 mmol/L (06/14/22 10:55 PM) UA RBC [0-2] 0-2 (06/15/22 12:30 AM) UA Leuk Est Negative (06/15/22 12:30 AM) UA Nitrite Negative (06/15/22 12:30 AM) UA Glucose [Negative] Trace *ABN* (06/15/22 12:30 AM) Hct [37.0-47.0 %] 31.5 % *LOW* (06/14/22 10:55 PM) UA Bacteria None Seen /HPF (06/15/22 12:30 AM) Lipase Level [16-77 unit/L] 58 unit/L (06/14/22 10:55 PM) Calcium Level [8.5-10.1 mg/dL] 11.5 mg/d L *HI* (06/14/22 10:55 PM) Albumin Level [3.4-5.0 g/dL] 3.1 g/dL *LOW* (06/14/22 10:55 PM) Protein Total [6.4-8.2 g/dL] 7.0 g/dL (06/14/22 10:55 PM) UA Protein 1+ *ABN* (06/15/22 12:30 AM) MCH [26.0-32.0 pg] 31.4 pg (06/14/22 10:55 PM) Neutro Absolute 2.7 x10^3/mcL *NA* (06/14/22 10:55 PM) Bilirubin Total [0.2-1.0 mg/dL] 0.5 mg/d L (06/14/22 10:55 PM) Hgb [12.0-16.0 g/dL] 10.1 g/dL *LOW* (06/14/22 10:55 PM) Alk Phos [46-146 unit/L] 69 unit/L (06/14/22 10:55 PM) UA Blood Negative (06/15/22 12:30 AM) UA Mucous None Seen /HPF (06/15/22 12:30 AM) UA Spec Grav 1.020 *NA* (06/15/22 12:30 AM) Platelets [130-450 x10^3/mcL] 153 x10^3/ mcL (06/14/22 10:55 PM) CO2 [21-32 mmol/L] 29 mmol/L (06/14/22 10:55 PM) Lactic Acid Lvl [0.7-2.1 mmol/L] 1.8 mmo l/L (06/14/22 10:55 PM) UA Squam Epithelial [None Seen] Few *ABN* (06/15/22 12:30 AM) UA pH 7.0 *NA* (06/15/22 12:30 AM) eGFR Non-AA [>=60] 17 *LOW* (06/14/22 10:55 PM) eGFR AA [>=60] 17 *LOW* (06/14/22 10:55 PM) UA Appear Clear (06/15/22 12:30 AM) Chloride Level [98-107 mmol/L] 102 mmol/ L (06/14/22 10:55 PM) RDW-CV [11.7-17.0 %] 15.1 % (06/14/22 10:55 PM) Imm Gran Auto [0.0-0.9 %] 0.2 % (06/14/22 10:55 PM) UA Culture Ind?. Not Applicable (06/15/22 12:30 AM) Creatinine Level [0.55-1.02 mg/dL] 2.83 mg/dL *HI* (06/14/22 10:55 PM) Eos, Auto [1.0-6.0 %] 7.1 % *HI* (06/14/22 10:55 PM) UA Yeast [None Seen] Few *ABN* (06/15/22 12:30 AM) Vital Signs Most recent to oldest [Reference Range]: 1 2 3 Temperature Temporal Artery [36-38 Deg C] 37.6 Deg C (06/14/22 10:41 PM) Peripheral Pulse Rate [60-100 bpm] 62 bpm (06/15/22 3:34 AM) 59 bpm *LOW* (06/15/22 3:06 AM) 65 bpm (06/15/22 1:15 AM) Heart Rate Monitored [60-100 bpm] 62 bpm (06/15/22 3:34 AM) 59 bpm *LOW* (06/15/22 3:06 AM) 70 bpm (06/15/22 1:15 AM) Respiratory Rate [12-24 br/min] 17 br/min (06/15/22 3:34 AM) 16 br/min (06/15/22 3:06 AM) 18 br/min (06/15/22 1:15 AM) Blood Pressure [90-140/60-90 mmHg] 155/67mmHg *HI* (06/15/22 12:45 AM) 155/67mmHg *HI* (06/15/22 12:30 AM) 128/68mmHg (06/14/22 11:45 PM) Weight 83.00 kg (06/14/22 10:41 PM) Weight Dosing 83.00 kg (06/14/22 10:46 PM) Height 160.000 cm (06/14/22 10:41 PM) Height/Length Dosing 160.000 cm (06/14/22 10:46 PM) Body Mass Index 32.000 kg/m2 (06/14/22 10:41 PM) Social History Social History Type Response Tobacco Never tobacco user T obacco Use:. Sex Female Physician Emergency department Note * Chun Vega MD: PERFORM Event Display: ED Note Physician Authored Date: [id number] NADIAYemiMARIA INES :1945 Age:77 years Sex:Female Visit Date:06/14/2022 Primary Care Physician: Jeannine Fernandes MD HPI 77 y/o female with a history of CKD, depression, HTN, PTSD, DM,??presents for repeat evaluation of poorly characterized shortness breath as well as diffuse abdominal pain.??On exam patient notes thatshe has poorly characterized mild shortness of breath and low abdominal pain. Patient is currently taking Levaquin for UTI. Patient???s history began with a long and tangential conversation with difficulty in eliciting the chief complaint and reason for presentation tonight. Patient notes that she is under significant personal stress, however she has not experienced outbursts of her neighbor today.? M/S/F/SocHx notable for: please see HPI; remainder reviewed with patient and in chart.? ROS: Negative constitutional, eye, cardiovascular, pulmonary, GI, , MSK, skin, neurologic, psychiatric, endocrine unless noted in the HPI. ?? Exam HR 64, RR 22, BP 145 or 85, T 37.6??C, SaO2 100% on room air. Gen:??Pleasant, non-toxic appearing, resting comfortably. HEENT: NC, AT, PEERL, EOMI. Resp: Clear to auscultation bilaterally, normal work of breathing, no accessory muscle usage. Card: Regular rate and rhythm with no murmurs, rubs, or gallops, extremities warm and well perfused.?? GI: Non-tender to palpation throughout all quadrants, non-distended, no rebound or guarding. : No suprapubic tenderness to palpation. MSK: No visible deformities, strength and tone without visually appreciable deficit. Skin: Normal color with no visible lesions. Neuro: alert and oriented?3, no facial asymmetry, vision and hearing WNL. Psych: moderately anxious mood and affect, otherwise appropriate. ?? Labs?? WBC??5.1, Hb 10.1, sodium??138, potassium 4.5, AST 19, ALT 7, ALP 69, total bilirubin 0.5, lipase 58, lactic acid 1.8, troponin 21.5. UA - negative nitrate, negative leukocyte esterase, no bacteria. ?? Imaging EKG: SR 63 bpm, no ST segment elevations or depressions, no hyperacute T waves. CXR: no acute findings. ?? MDM Previous chart, nursing note, labs, imaging, and vitals reviewed.?? A:??77 y/o female with a history of CKD, depression, HTN, PTSD, DM,??presents for repeat evaluationof poorly characterized shortness breath as well as diffuse abdominal pain.? DDx??&??Evaluation: abdominal exam benign, laboratory studies within acceptable limits. No clear evidence of acute intrabdominal process. UA without evidence infection, no features on history, exam, her urinalysis suggestive of kidney stones. With regards the patient???s poorly characterized chest discomfort, this appears to be consistent with her long-standing pattern, ECG is nonischemic, tro ponin is negative, and her chest x-ray is unremarkable. No identifiable risk factors for PE, further investigation not presently indicated. ?? Disposition: discharge with PCP follow-up strongly recommended. ?? Impression: chest pain, abdominal pain. Electronically Signed on 06/15/22 02:50 AM Chun Vega MD Emergency department Discharge instructions * Chun Vega MD: PERFORM Event Display: ED Discharge Information Authored Date: [id number] MARIA INES BROOKS :1945 Age:77 years Sex:Female Visit Date:06/14/2022 Primary Care Physician: Jeannine Fernandes MD Discharge Instructions We would like to thank you for allowing us to assist you with your healthcare needs. The following includes patient education materials and information regarding your injury/illness. ?? You were seen at [facility] for evaluation for evaluation of??chest pain abdominal pain. At time of your evaluation the cause of your symptoms is unclear. [facility]??Please read and follow all of the instructions below. ?? When calling for follow-up care, please make the office aware that this follow- up is from your recent emergency room visit.? [...] a free pharmacy discount service such as [employer] ([employer]) or [employer] ([employer]). These services allow you to search for [...] or you have new symptoms or concerns. Abdominal Pain The exact cause of your abdominal pain is not certain. Based upon the testing today you are felt ana maría at low risk for discharge. There are no current signs of a life threatening illness or injury. Your condition does not seem serious now; however, sometimes the signs of a serious problem may take more time to appear. For this reason, it is important for you to watch for any new symptoms, problems , or worsening of your condition. Over the next few days, the abdominal pain may come and go, or becontinuous. Other common symptoms can include nausea and vomiting. Sometimes it can be difficult totell if you feel nauseous, you may just feel bad and not associate that feeling with nausea. Constipation, diarrhea, and a fever may go along with the pain. The pain may continue even if treated correctly over the following days. Depending on how things go, sometimes the cause can become clear and may require further or different treatment. Additional evaluations, medications, or tests may be needed. ?? If your symptoms do not worsen but you are still having pain after 12-24 hours, please call your primary care physician to arrange for further evaluation.? Return to the emergency department if any of the following occur: ?Pain gets worse or moves to the right lower abdomen ?New or worsening vomiting or diarrhea ?Swelling of the abdomen ?Unable to pass gas or stool for more than 8 hours ?Fever of 100.4??F (38??C) or higher, or as directed by your healthcare provider. ?Blood in vomit or bowel movements (dark red or black color) ?If you have yellow skin or eyes or if you have dark brown urine. ?Weakness, dizziness ?Chest, arm, back, neck or jaw pain ?Unexpected vaginal bleeding or missed period ?Trouble breathing ?Confusion ?Fainting or loss of consciousness ?Rapid heart rate ?Seizure ?If you are light headed upon standing or passing out.?If you are otherwise concerned about your health. ?? Home Care ?Do not force yourself to eat, especially if having cramps, vomiting, or diarrhea. ?Water is important so you do not get dehydrated. Soup may also be good. Sports drinks may also help, especially if they are not too acidic. Make sure you don't drink sugary drinks as this can make things worse. Take liquids in small amounts.?Caffeine sometimes makes the pain and cramping worse. ?Avoid dairy products if you have vomiting or diarrhea. ?Don't eat large amounts at a time. Wait a few minutes between bites. ?Eat a diet low in fiber (called a low-residue diet). Foods allowed include refined breads, white rice, fruit and vegetable juices without pulp, tender meats. These foods will pass more easily through the intestine. Avoid whole-grain foods, whole fruits and vegetables, meats, seeds and nuts, fried or fatty foods, dairy, alcohol and spicy foods until your symptoms go away. ? Discharge Vitals Temperature??(Temporal Artery) 99.7 ??F (37.6 ??C) Heart Rate??(Peripheral) 65 Heart Rate??(Monitored) 70 Respiratory Rate?? 18 Blood Pressure?? 155/67?? Height?? 62.99 in (160.000 cm) Weight?? 183.02 lb (83.00 kg) BMI?? 32.000 Allergies azithromycin??(Skin rash) codeine??(Rapid heart beat) What to Do Next Upcoming Scheduled Appointments Wednesday 11:30 AM EST ?? Wednesday 11:00 AM EST ?? [...] for Prescription (BD UF Pen Needle Mini [id number]) See instructions DM2 (diabetes mellitus, type 2) Use one needle for each injection daily. (current Injections are 4 times daily) ?? Unchanged Durable Medical Equipment for Prescription ([employer] Ultra Blue Test Strips) See instructions Diabetes [...] the skin) Every night at bedtime Unchanged levoFLOXacin (levoFLOXacin 250 mg oral tablet) 1 tab Oral (given by mouth) Every 48 hours Duration: 10 Days Unchanged loperamide (loperamide 2 mg oral capsule) 1 Capsules Oral (given by mouth) Every 4 hours as needed for as needed for loose stool Unchanged magnesium oxide (magnesium oxide 400 mg [...] Other Prescription (BD UF MINI PEN NEEDLE [id number]) See instructions USE DIRECTED FOUR TIMES A [...] Lab Test Name Test Result Date/Time WBC 5.1 x10^3/mcL 06/14/2022 22:55 EST RBC 3.2 x10^6/mcL 06/14/2022 22:55 EST Hgb 10.1 g/dL 06/14/2022 22:55 EST Hct 31.5 % 06/14/2022 22:55 EST MCV 97.8 06/14/2022 22:55 EST MCH 31.4 pg 06/14/2022 22:55 EST MCHC 32.1 g/dL 06/14/2022 22:55 EST RDW-CV 15.1 % 06/14/2022 22:55 EST Platelets 153 x10^3/mcL 06/14/2022 22:55 EST Neutro Auto 53.4 % 06/14/2022 22:55 EST Lymph Auto 27.1 % 06/14/2022 22:55 EST [place] Auto 11.0 % 06/14/2022 22:55 EST Eos, Auto 7.1 % 06/14/2022 22:55 EST Basophil Auto 1.2 % 06/14/2022 22:55 EST Imm Gran Auto 0.2 % 06/14/2022 22:55 EST Neutro Absolute 2.7 x10^3/mcL 06/14/2022 22:55 EST Sodium Level 138 mmol/L 06/14/2022 22:55 EST Potassium Level 4.5 mmol/L 06/14/2022 22:55 EST Chloride Level 102 mmol/L 06/14/2022 22:55 EST CO2 29 mmol/L 06/14/2022 22:55 EST Alk Phos 69 unit/L 06/14/2022 22:55 EST AST 19 unit/L 06/14/2022 22:55 EST ALT 7 unit/L 06/14/2022 22:55 EST BUN 37 mg/dL 06/14/2022 22:55 EST Glucose Level 124 mg/dL 06/14/2022 22:55 EST Creatinine Level 2.83 mg/dL 06/14/2022 22:55 EST eGFR AA 17 06/14/2022 22:55 EST eGFR Non-AA 17 06/14/2022 22:55 EST Calcium Level 11.5 mg/dL 06/14/2022 22:55 EST Protein Total 7.0 g/dL 06/14/2022 22:55 EST Albumin Level 3.1 g/dL 06/14/2022 22:55 EST Bilirubin Total 0.5 mg/dL 06/14/2022 22:55 EST Lactic Acid Lvl 1.8 mmol/L 06/14/2022 22:55 EST Lipase Level 58 unit/L 06/14/2022 22:55 EST Troponin-I 21.5 pg/mL 06/14/2022 22:55 EST UA Color YELLOW. 06/15/2022 00:30 EST UA Appear CLEAR. 06/15/2022 00:30 EST UA Glucose TRACE. 06/15/2022 00:30 EST UA Bili NEGATIVE 06/15/2022 00:30 EST UA Ketones NEGATIVE 06/15/2022 00:30 EST UA Spec Grav 1.020 06/15/2022 00:30 EST UA Blood NEGATIVE 06/15/2022 00:30 EST UA pH 7.0 06/15/2022 00:30 EST UA Protein 1+ 06/15/2022 00:30 EST UA Urobilinogen 0.2 Uro 06/15/2022 00:30 EST UA Nitrite NEGATIVE 06/15/2022 00:30 EST UA Leuk Est NEGATIVE 06/15/2022 00:30 EST UA Culture Ind?. Not Applicable 06/15/2022 00:30 EST UA WBC 0-3 06/15/2022 00:30 EST UA RBC 0-2 06/15/2022 00:30 EST UA Squam Epithelial Few 06/15/2022 00:30 EST UA Yeast Few 06/15/2022 00:30 EST UA Mucous None Seen 06/15/2022 00:30 EST UA Bacteria None Seen 06/15/2022 00:30 EST Patient/Slot Operations Manager Signature Patient Name:MARIA INES BROOKS I have received this information and my questions have been answered. Patient/Slot Operations Manager Name: Patient/Slot Operations Manager Signature: Relationship to Patient: Witness Name/Signature: Date: Electronically Signed on: 06/15/2022 02:51 ESTSigned by:J Emergency department Note * Remedios Whitfield: PERFORM Event Display: ED Notes Authored Date: [id number] Patient Care team information Personnel Name: Jeannine Fernandes MD Address: Address: [place] [address]- Name: Noreen York
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
--- OUTSIDE RECORDS SUMMARY | 2022-12-19 08:41 | XMS_ITS | Continuity of Care Document ---
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 Name Role Phone Jeannine Fernandes Primary Care Physician [phone] Noreen York Unavailable Unavailable Encounter [facility] Date(s): 09/17/22 - 09/17/22 [facility] [address] [place] [address] Discharge Disposition: Home Allergies, Adverse Reactions, Alerts [...] Daily, # 30 tab, 5 Refill(s), Pharmacy: [facility], 161, cm, 05/12/2220:25:00 EST, Height/Length Dosing, 77.5, kg, 05/12/22 20:25:00 EST, Weight Dosing Start Date: 05/15/22 Status: Ordered aspirin 81 mg oral tablet, chewable 81 mg = 1 tab, Oral, Daily, # 90 tab, 0 Refill(s), Pharmacy: [facility], 160, cm, 06/14/22 22:46:00 EST, Height/Length Dosing, 83, kg, 06/14/22 22:46:00 EST, Weight Dosing Start Date: 08/28/22 Status: Ordered atorvastatin 40 mg oral tablet 1 tab, Oral, Daily, # 84 tab, 0 Refill(s), Pharmacy: [id number], 160, cm, 06/14/22 22:46:00 EST, Height/Length Dosing, 83, kg, 06/14/22 22:46:00 EST, Weight Dosing Start Date: 08/24/22 Status: Ordered BD Pen Needle Mini U/F 31G X 5 MM MISC BD Pen Needle Mini U/F 31G X 5 MM MISC, See Instructions, USE FOUR TIMES A DAY DIRECTED, # 100 EA, 2 Refill(s), Pharmacy: [facility], 160, cm, 06/14/22 22:46:00 EST, Height/Length Dosing, 83, kg, 06/14/22 22:46:00 EST, Weight Dosing Start Date: 07/26/22 Status: Ordered BD UF MINI PEN NEEDLE [id number] BD UF MINI PEN NEEDLE [id number], See Instructions, USE DIRECTED FOUR TIMES A DAY NEEDED, # 100 EA, 3 Refill(s), Pharmacy: [facility] Start Date: 02/24/22 Status: Ordered BD UF Pen Needle Mini [id number] BD UF Pen Needle Mini [id number], Use one needle for each injection daily. (current Injections are 4 times daily), Supply, See instructions, # 100 EA, 2 Refill(s), Pharmacy: [facility] Start Date: 01/16/22 Status: Ordered doxycycline monohydrate 100 mg oral capsule 100 mg = 1 cap, Oral, every 12 hr, # 6 cap, 0 Refill(s), Pharmacy: [facility], 168, cm, 09/01/22 14:46:00 EDT, Height/Length Dosing, 66.2, kg, 09/01/22 14:46:00 EDT, Weight Dosing Start Date: 09/03/22 Stop Date: 09/06/22 Status: Ordered ferrous gluconate 324 mg (38 mg elemental iron) oral tablet 324 mg = 1 tab, Oral, Daily, # 90 tab, 0 Refill(s), Pharmacy: [facility], 160, cm, 08/31/22 11:50:00 EDT, Height/Length Dosing, 36.2, kg, 08/31/22 11:50:00 EDT, Weight Dosing Start Date: 09/01/22 Status: Ordered ferrous gluconate 324 mg (38 mg elemental iron) oral tablet 324 mg = 1 tab, Oral, Daily Start Date: 12/17/21 Status: Ordered folic acid 1 mg oral tablet 1 mg = 1 tab, Oral, Daily, # 90 tab, 0 Refill(s), Pharmacy: [facility], 160, cm, 08/31/22 11:50:00 EDT, Height/Length Dosing, 36.2, kg, 08/31/22 11:50:00 EDT, Weight Dosing Start Date: 09/01/22 Status: Ordered Glucerna Glucerna, Twice a day, Supply, See instructions, # 60 EA, 3 Refill(s), Pharmacy: [facility] Start Date: 07/13/22 Status: Ordered Levemir FlexTouch 100 units/mL subcutaneous solution 15 units =, Subcutaneous, every night at bedtime Start Date: 05/13/22 Status: Ordered magnesium oxide 400 mg (241.3 mg elemental magnesium) oral tablet 400 mg = 1 tab, Oral, BID, # 60 tab, 3 Refill(s), Pharmacy: [facility], 168, cm, 05/16/22 21:31:00 EST, Height/Length Dosing, 70, kg, 05/16/22 21:31:00 EST, Weight Dosing Start Date: 06/04/22 Status: Ordered Melatonin 3 mg oral tablet 3 mg 1 tab, Oral, every night at bedtime, # 30 tab, 0 Refill(s), Pharmacy: [facility], 160, cm, 06/14/22 22:46:00 EST, Height/Length Dosing, [...] DAY, # 90 tab, 3 Refill(s), Pharmacy: [facility] Start Date: 01/01/22 Status: Ordered mupirocin 2% topical ointment See Instructions, APPLY A SMALL AMOUNT TOPICALLY TO AFFECTED AREA(S) THREE TIMES A DAY, # 22 g, 1 Refill(s), Pharmacy: [facility] Start Date: 03/23/22 Status: Ordered nitroglycerin 0.4 mg sublingual tablet 0.4 mg = 1 tab, SL, every 5 min, not to exceed 3 doses/15 min--if pain persists, seek medical attention, # 30 tab, 0 Refill(s), Pharmacy: [facility], 160, cm, 06/14/22 22:46:00 EST, Height/Length Dosing, 83, kg, 06/14/22 22:46:00 EST, We... Start Date: 06/18/22 Status: Ordered NovoLOG FlexPen 100 units/mL injectable solution 5 units =, Subcutaneous, TID(AC), # 10 mL, 0 Refill(s), Pharmacy: [facility], 168, cm, 05/16/22 21:31:00 EST, Height/Length Dosing, 70, kg, 05/16/22 21:31:00 EST, Weight Dosing Start Date: 06/04/22 Status: Ordered Onetouch Ultra Blue Test Strips Onetouch Ultra Blue Test Strips, use as directed four times daily, Supply, See instructions, # 300 EA, 12 Refill(s), Pharmacy: [facility] Start Date: 07/27/22 Status: Ordered oxybutynin 5 mg oral tablet 5 mg = 1 tab, Oral, BID, PRN as needed for urinary discomfort, 2-3 TIMES DAILY NEEDED, # 30 tab,0 Refill(s), Pharmacy: [facility], 168, cm, 05/16/22 21:31:00 EST, Height/Length Dosing, 70, kg, 05/16/22 21:31:00 EST, Weight Dosing Start Date: 06/04/22 Status: Ordered pantoprazole 40 mg oral delayed release tablet 40 mg = 1 tab, Oral, Daily Start Date: 05/13/22 Status: Ordered propranolol 20 mg oral tablet 3 tab, Oral, BID, # 168 tab, 0 Refill(s), Pharmacy: [id number], 160, cm, 06/14/22 22:46:00 EST, Height/Length Dosing, 83, kg, 06/14/22 22:46:00 EST, Weight Dosing Start Date: 08/24/22 Status: Ordered venlafaxine 150 mg oral capsule, extended release 150 mg = 1 cap, Oral, Daily, # 90 cap, 3 Refill(s), Pharmacy: [facility], 160, cm, 08/31/22 11:50:00 EDT, Height/Length Dosing, 36.2, kg, 08/31/22 11:50:00 EDT, Weight Dosing Start Date: 09/01/22 Status: Ordered Vitamin B2 100 mg oral tablet See Instructions, TAKE 1 TABLET BY MOUTH DAILY, # 84 tab, 2 Refill(s), Pharmacy: [id number], 168, cm, 09/01/22 14:46:00 EDT, Height/Length Dosing, [...] Physician Member Role: Informed Provider Address: Address: [place], [place] [id number] [place] [address] Name: Nithin Bellamy NP Position: Physician Member Role: Nurse Practitioner Address: Address: [address] Name: Noreen York Position: Ambulatory - RN/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
--- OUTSIDE RECORDS SUMMARY | 2022-12-19 08:41 | XMS_ITS | Continuity of Care Document ---
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 [address] [place] [address] Discharge Disposition: Home or Self Care Attending Physician: Jeannine Fernandes MD Admitting Physician: Jeannine Fernandes MD Referring Physician: Jeannine Fernandes MD Allergies, Adverse Reactions, Alerts Substance Reaction Severity Status codeine Rapid heart beat Unknown Active azithromycin Skin rash Unknown Active Assessment and Plan Future Appointments Future Scheduled Tests Laboratory* Magnesium Level 05/22/22 Immunizations Given and Recorded Vaccine Date Status [...] Daily, # 30 tab, 5 Refill(s), Pharmacy: [facility], 161, cm, 05/12/2220:25:00 EST, Height/Length Dosing, 77.5, kg, 05/12/22 20:25:00 EST, Weight Dosing Start Date: 05/15/22 Status: Ordered Ativan 0.5 mg oral tablet 0.25 mg = 0.5 tab, Oral, every night at bedtime, # 15 tab, 0 Refill(s), Pharmacy: [facility], 160, cm, 06/14/22 22:46:00 EST, Height/Length Dosing, 83, kg, 06/14/22 22:46:00 EST, WeightDosing Start Date: 06/18/22 Status: Ordered atorvastatin 40 mg oral tablet 40 mg = 1 tab, Oral, Daily, # 90 tab, 0 Refill(s), Pharmacy: [facility], 168, cm, 05/16/22 21:31:00 EST, Height/Length Dosing, 70, kg, 05/16/22 21:31:00 EST, Weight Dosing Start Date: 06/04/22 Status: Ordered BD UF MINI PEN NEEDLE [id number] BD UF MINI PEN NEEDLE [id number], See Instructions, USE DIRECTED FOUR TIMES A DAY NEEDED, # 100 EA, 3 Refill(s), Pharmacy: [facility] Start Date: 02/24/22 Status: Ordered BD UF Pen Needle Mini [id number] BD UF Pen Needle Mini [id number], Use one needle for each injection daily. (current Injections are 4 times daily), Supply, See instructions, # 100 EA, 2 Refill(s), Pharmacy: [facility] Start Date: 01/16/22 Status: Ordered ferrous gluconate 324 mg (38 mg elemental iron) oral tablet 324 mg = 1 tab, Oral, Daily Start Date: 12/17/21 Status: Ordered folic acid 1 mg oral tablet 1 mg = 1 tab, Oral, Daily, # 90 tab, 0 Refill(s), Pharmacy: [facility], 168, cm, 06/09/22 9:44:00 EST, Height/Length Dosing, 69.4, kg, 06/09/22 9:44:00 EST, Weight Dosing Start Date: 06/09/22 Status: Ordered Glucagon Emergency Kit for Low Blood Sugar 1 mg injection 0 Refill(s) Start Date: 05/04/22 Status: Ordered Levemir FlexTouch 100 units/mL subcutaneous solution 15 units =, Subcutaneous, every night at bedtime Start Date: 05/13/22 Status: Ordered lidocaine 5% topical film 1 patches, Topical, Daily, remove patches after 12 hours, # 30 patches, 0 Refill(s), Pharmacy: [facility], 160, cm, 06/14/22 22:46:00 EST, Height/Length Dosing, 83, kg, 06/14/22 22:46:00 EST, Weight Dosing Start Date: 06/24/22 Status: Ordered loperamide 2 mg oral capsule 2 mg = 1 cap, Oral, every 4 hr, PRN as needed for loose stool, # 60 cap, 2 Refill(s), Pharmacy: [facility], 168, cm, 05/16/22 21:31:00 EST, Height/Length Dosing, 70, kg, 05/16/22 21:31:00 EST, Weight Dosing Start Date: 06/04/22 Status: Ordered magnesium oxide 400 mg (241.3 mg elemental magnesium) oral tablet 400 mg = 1 tab, Oral, BID, # 60 tab, 3 Refill(s), Pharmacy: [facility], 168, cm, 05/16/22 21:31:00 EST, Height/Length Dosing, 70, kg, 05/16/22 21:31:00 EST, Weight Dosing Start Date: 06/04/22 Status: Ordered memantine 5 mg oral tablet 5 mg = 1 tab, Oral, BID Start Date: 12/17/21 Status: Ordered Metoprolol Succinate ER 25 mg oral tablet, extended release 25 mg = 1 tab, Oral, Daily, TAKE ONE TABLET BY MOUTH EVERY DAY, # 90 tab, 3 Refill(s), Pharmacy: [facility] Start Date: 01/01/22 Status: Ordered mupirocin 2% topical ointment See Instructions, APPLY A SMALL AMOUNT TOPICALLY TO AFFECTED AREA(S) THREE TIMES A DAY, # 22 g, 1 Refill(s), Pharmacy: [facility] Start Date: 03/23/22 Status: Ordered nitroglycerin 0.4 mg sublingual tablet 0.4 mg = 1 tab, SL, every 5 min, not to exceed 3 doses/15 min--if pain persists, seek medical attention, # 30 tab, 0 Refill(s), Pharmacy: [facility], 160, cm, 06/14/22 22:46:00 EST, Height/Length Dosing, 83, kg, 06/14/22 22:46:00 EST, We... Start Date: 06/18/22 Status: Ordered NovoLOG FlexPen 100 units/mL injectable solution 5 units =, Subcutaneous, TID(AC), # 10 mL, 0 Refill(s), Pharmacy: [facility], 168, cm, 05/16/22 21:31:00 EST, Height/Length Dosing, [...] DAILY NEEDED, # 30 tab,0 Refill(s), Pharmacy: [facility], 168, cm, 05/16/22 21:31:00 EST, Height/Length Dosing, [...] 1 cap, Oral, Daily, # 90 cap, 0 Refill(s), Pharmacy: [facility], 160, cm, 06/14/22 22:46:00 EST, Height/Length Dosing, 83, kg, 06/14/22 22:46:00 EST, Weight Dosing Start Date: 06/16/22 Status: Ordered Vitamin B2 100 mg oral [...] Pylori, negative Results Laboratory List Name Date Automated Diff 07/01/22 CBC w/ Diff 07/01/22 Comprehensive Metabolic Panel (CMP) 07/01 Hemoglobin A1c 07/01/22 Iron Level and TIBC 07/01/22 Most recent to oldest [Reference Range]: 1 WBC [5.0-10.0 x10^3/mcL] 7.3 x10^3/mcL (07/01/22 12:00 PM) RBC [4.1-5.3 x10^6/mcL] 3.8 x10^6/mcL *LOW* (07/01/22 12:00 PM) Neutro Auto [40.0-75.0 %] 72.4 % (07/01/22 12:00 PM) Lymph Auto [20.0-50.0 %] 15.2 % *LOW* (07/01/22 12:00 PM) [place] Auto [2.0-15.0 %] 7.0 % (07/01/22 12:00 PM) Basophil Auto [0.0-1.0 %] 1.1 % *HI* (07/01/22 12:00 PM) BUN [7-18 mg/dL] 61 mg/dL *HI* (07/01/22 12:00 PM) Glucose Level [74-106 mg/dL] 251 mg/dL *HI* (07/01/22 12:00 PM) Potassium Level [3.5-5.1 mmol/L] 5.0 mmo l/L (07/01/22 12:00 PM) MCV [80.0-96.0] 97.9 *HI* (07/01/22 12:00 PM) AST [15-37 unit/L] 13 unit/L *LOW* (07/01/22 12:00 PM) ALT [14-59 unit/L] 7 unit/L *LOW* (07/01/22 12:00 PM) MCHC [31.0-35.0 g/dL] 32.0 g/dL (07/01/22 12:00 PM) Sodium Level [136-145 mmol/L] 140 mmol/L (07/01/22 12:00 PM) Hct [37.0-47.0 %] 37.5 % (07/01/22 12:00 PM) Calcium Level [8.5-10.1 mg/dL] 12.6 mg/d L 1 *CRIT* (07/01/22 12:00 PM) Albumin Level [3.4-5.0 g/dL] 3.4 g/dL (07/01/22 12:00 PM) Protein Total [6.4-8.2 g/dL] 7.6 g/dL (07/01/22 12:00 PM) Iron Sat [20-55 %] 23 % (07/01/22 12:00 PM) MCH [26.0-32.0 pg] 31.3 pg (07/01/22 12:00 PM) Neutro Absolute 5.3 x10^3/mcL *NA* (07/01/22 12:00 PM) Bilirubin Total [0.2-1.0 mg/dL] 0.5 mg/d L (07/01/22 12:00 PM) Hgb [12.0-16.0 g/dL] 12.0 g/dL (07/01/22 12:00 PM) Alk Phos [46-146 unit/L] 74 unit/L (07/01/22 12:00 PM) Platelets [130-450 x10^3/mcL] 143 x10^3/ mcL (07/01/22 12:00 PM) CO2 [21-32 mmol/L] 30 mmol/L (07/01/22 12:00 PM) TIBC [250-450 mcg/dL] 327 mcg/dL (07/01/22 12:00 PM) Iron [50-170 mcg/dL] 76 mcg/dL (07/01/22 12:00 PM) eGFR Non-AA [>=60] 16 *LOW* (07/01/22 12:00 PM) eGFR AA [>=60] 16 *LOW* (07/01/22 12:00 PM) Hemoglobin A1c [4.0-6.0 %] 7.1 % *HI* (07/01/22 12:00 PM) Chloride Level [98-107 mmol/L] 101 mmol/ L (07/01/22 12:00 PM) RDW-CV [11.7-17.0 %] 13.8 % (07/01/22 12:00 PM) Imm Gran Auto [0.0-0.9 %] 0.3 % (07/01/22 12:00 PM) Creatinine Level [0.55-1.02 mg/dL] 2.94 mg/dL *HI* (07/01/22 12:00 PM) Eos, Auto [1.0-6.0 %] 4.0 % (07/01/22 12:00 PM) 1Result Comment: Called to and verbally verified by Kimberly Ballard RN at 07/01/2022 16:43:17 EST Social History Social History Type Response Tobacco Never tobacco user T obacco Use:. Sex Female Patient Care team information Personnel Name: Jeannine Fernandes MD Address: Address: [place] [address]- [place] Name: Noreen York
--- OUTSIDE RECORDS SUMMARY | 2022-12-19 08:41 | XMS_ITS | Continuity of Care Document ---
Author Name Unknown Organization [facility] Address [address] [place] [address] Care Team Providers Care Measuring Clerk Name Role Phone Jeannine Fernandes Primary Care Physician Noreen York Unavailable Unavailable Encounter [id number] Date(s): 08/31/22 - 09/03/22 [facility] [address] [place] [address] us Encounter Diagnosis DKA (diabetic ketoacidosis)(Discharge Diagnosis) - 08/31/22 DKA (diabetic ketoacidosis)(Discharge Diagnosis) - 08/31/22 COVID-19(Discharge Diagnosis) - 08/31/22 DEL (acute kidney injury)(Discharge Diagnosis) - 08/31/22 Type 2 myocardial infarction(Discharge Diagnosis) - 08/31/22 Hypomagnesemia(Discharge Diagnosis) - 09/01/22 Chronic kidney disease stage 4(Discharge Diagnosis) - 09/01/22 Hypertensive disorder(Discharge Diagnosis) - 09/01/22 Gastroesophageal reflux disease(Discharge Diagnosis) - 09/01/22 Depressive disorder(Discharge Diagnosis) - 09/01/22 Type 2 diabetes mellitus with ketoacidosis without coma(Final) - COVID-19(Final) - Acute kidney failure, unspecified(Final) - Myocardial infarction type 2(Final) - Hypomagnesemia(Final) - Chronic kidney disease, stage 4 (severe)(Final) - Gastro-esophageal reflux disease without esophagitis(Final) - Depression, unspecified(Final) - 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) - Hypertensive chronic kidney disease with stage 1 through stage 4 chronic kidney disease, or unspecified chronic kidney disease(Final) - 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(Final) - Contact with and (suspected) exposure to other viral communicable diseases (Final) - Need for assistance with personal care(Final) - Discharge Disposition: Home or Self Care Attending Physician: Sandra Melo MD Admitting Physician: Sandra Melo MD Allergies, Adverse Reactions, Alerts Substance Reaction Severity Status codeine Rapid heart beat Unknown Active azithromycin Skin rash Unknown Active Assessment and Plan Extracted from: Title:ED note Author:Brenton Lisa MD Date:08/31/22 77-year-old female past [facility] history of diabetes was signed out to me by previous physician Dr. Dutton. Patient was in DKA, started on insulin drip and IV fluids with potassium and glucose. Unable to find an ICU prior to my arrival, plan was to keep the patient in the ER to treat DKA and transition to subcutaneous insulin if labs improved. On follow-up labs, anion gap improved to 14, pH normalized, and bicarb normalized and glucose was less than 180, thus 0.2 units/kg of subcutaneous insulin glargine was administered and insulin drip was left on for 2 hours and then stopped. Patient was transitioned off of D5 and placed on normal saline maintenance. POC glucose every 2 hours. BMP, VBG, magnesium, phosphorus repeat at 2 AM. Patient clinically in no acute distress and stable. Addendum by Brenton Lisa MD on September 01, 2022 6:36 EDT On repeat labs, anion gap was 12 and pH normalized. Glucose was slightly increasing in the 100 range up to 180 after 0.2 units/kg of insulin glargine, thus an additional 6 units was given around 6:30 AM. Patient has not had any meals to this point. Will be on sliding scale on reintroduction of diet later in the morning. Spoke with hospitalist who accepts admission. Magnesium was low, replaced IV. Addendum by Brenton Lisa MD on September 01, 2022 6:37 EDT Troponins continue to downtrend, patient continues to deny chest pain. Future Appointments Future Scheduled Tests Laboratory* Comprehensive Metabolic Panel 07/02/22 * Magnesium Level 05/22/22 * Calcium Level Ionized 07/02/22 Functional Status 09/02/22 Personal Care Provided Bed bath, Diaper/Brief changed, Gown change, Marva care 09/01/22 Recent Travel History No recent travel Other exposure to Infectious Disease Com munity exposure to COVID-19 within the last 14 days 08/31/22 Living Environment No Living Environmen t Information Available Current Home Treatments Blood glucose mo nitoring Home Equipment Blood glucose monito r, Shower chair, Walker Immunizations Given and Recorded Vaccine Date Status [...] Daily, # 30 tab, 5 Refill(s), Pharmacy: [id number], 161, cm, 05/12/2220:25:00 EST, Height/Length Dosing, 77.5, kg, 05/12/22 20:25:00 EST, Weight Dosing Start Date: 05/15/22 Status: Ordered aspirin 81 mg oral tablet, chewable 81 mg = 1 tab, Oral, Daily, # 90 tab, 0 Refill(s), Pharmacy: [facility], 160, cm, 06/14/22 22:46:00 EST, Height/Length Dosing, 83, kg, 06/14/22 22:46:00 EST, Weight Dosing Start Date: 08/28/22 Status: Ordered atorvastatin 40 mg oral tablet 1 tab, Oral, Daily, # 84 tab, 0 Refill(s), Pharmacy: [facility] [id number], 160, cm, 06/14/22 22:46:00 EST, Height/Length Dosing, 83, kg, 06/14/22 22:46:00 EST, Weight Dosing Start Date: 08/24/22 Status: Ordered BD Pen Needle Mini U/F 31G X 5 MM MISC BD Pen Needle Mini U/F 31G X 5 MM MISC, See Instructions, USE FOUR TIMES A DAY DIRECTED, # 100 EA, 2 Refill(s), Pharmacy: [facility] [id number], 160, cm, 06/14/22 22:46:00 EST, Height/Length Dosing, 83, kg, 06/14/22 22:46:00 EST, Weight Dosing Start Date: 07/26/22 Status: Ordered BD UF MINI PEN NEEDLE [id number] BD UF MINI PEN NEEDLE [id number], See Instructions, USE DIRECTED FOUR TIMES A DAY NEEDED, # 100 EA, 3 Refill(s), Pharmacy: [id number] Start Date: 02/24/22 Status: Ordered BD UF Pen Needle Mini [id number] BD UF Pen Needle Mini [id number], Use one needle for each injection daily. (current Injections are 4 times daily), Supply, See instructions, # 100 EA, 2 Refill(s), Pharmacy: [facility] Start Date: 01/16/22 Status: Ordered doxycycline monohydrate 100 mg oral capsule 100 mg = 1 cap, Oral, every 12 hr, # 6 cap, 0 Refill(s), Pharmacy: [facility], 168, cm, 09/01/22 14:46:00 EDT, Height/Length Dosing, 66.2, kg, 09/01/22 14:46:00 EDT, Weight Dosing Start Date: 09/03/22 Stop Date: 09/06/22 Status: Ordered ferrous gluconate 324 mg (38 mg elemental iron) oral tablet 324 mg = 1 tab, Oral, Daily, # 90 tab, 0 Refill(s), Pharmacy: [facility], 160, cm, 08/31/22 11:50:00 EDT, Height/Length Dosing, 36.2, kg, 08/31/22 11:50:00 EDT, Weight Dosing Start Date: 09/01/22 Status: Ordered ferrous gluconate 324 mg (38 mg elemental iron) oral tablet 324 mg = 1 tab, Oral, Daily Start Date: 12/17/21 Status: Ordered folic acid 1 mg oral tablet 1 mg = 1 tab, Oral, Daily, # 90 tab, 0 Refill(s), Pharmacy: [facility], 160, cm, 08/31/22 11:50:00 EDT, Height/Length Dosing, 36.2, kg, 08/31/22 11:50:00 EDT, Weight Dosing Start Date: 09/01/22 Status: Ordered Glucerna Glucerna, Twice a day, Supply, See instructions, # 60 EA, 3 Refill(s), Pharmacy: [facility] Start Date: 07/13/22 Status: Ordered insulin lispro (HumaLog) correction- moderate Moderate Scale, Subcutaneous, Soln, First Dose: 09/02/22 7:30:00 EDT Start Date: 09/02/22 Stop Date: 09/02/22 Status: Completed Levemir FlexTouch 100 units/mL subcutaneous solution 15 units =, Subcutaneous, every night at bedtime Start Date: 05/13/22 Status: Ordered magnesium oxide 400 mg (241.3 mg elemental magnesium) oral tablet 400 mg = 1 tab, Oral, BID, # 60 tab, 3 Refill(s), Pharmacy: [facility], 168, cm, 05/16/22 21:31:00 EST, Height/Length Dosing, 70, kg, 05/16/22 21:31:00 EST, Weight Dosing Start Date: 06/04/22 Status: Ordered Melatonin 3 mg oral tablet 3 mg 1 tab, Oral, every night at bedtime, # 30 tab, 0 Refill(s), Pharmacy: [facility], 160, cm, 06/14/22 22:46:00 EST, Height/Length [...] DAY, # 90 tab, 3 Refill(s), Pharmacy: [facility] Start Date: 01/01/22 Status: Ordered mupirocin 2% topical ointment See Instructions, APPLY A SMALL AMOUNT TOPICALLY TO AFFECTED AREA(S) THREE TIMES A DAY, # 22 g, 1 Refill(s), Pharmacy: [facility] Start Date: 03/23/22 Status: Ordered nitroglycerin 0.4 mg sublingual tablet 0.4 mg = 1 tab, SL, every 5 min, not to exceed 3 doses/15 min--if pain persists, seek medical attention, # 30 tab, 0 Refill(s), Pharmacy: [facility], 160, cm, 06/14/22 22:46:00 EST, Height/Length Dosing, 83, kg, 06/14/22 22:46:00 EST, We... Start Date: 06/18/22 Status: Ordered NovoLOG FlexPen 100 units/mL injectable solution 5 units =, Subcutaneous, TID(AC), # 10 mL, 0 Refill(s), Pharmacy: [facility], 168, cm, 05/16/22 21:31:00 EST, Height/Length Dosing, 70, kg, 05/16/22 21:31:00 EST, Weight Dosing Start Date: 06/04/22 Status: Ordered Onetouch Ultra Blue Test Strips Onetouch Ultra Blue Test Strips, use as directed four times daily, Supply, See instructions, # 300 EA, 12 Refill(s), Pharmacy: [facility] Start Date: 07/27/22 Status: Ordered oxybutynin 5 mg oral tablet 5 mg = 1 tab, Oral, BID, PRN as needed for urinary discomfort, 2-3 TIMES DAILY NEEDED, # 30 tab,0 Refill(s), Pharmacy: [facility], 168, cm, 05/16/22 21:31:00 EST, Height/Length Dosing, 70, kg, 05/16/22 21:31:00 EST, Weight Dosing Start Date: 06/04/22 Status: Ordered pantoprazole 40 mg oral delayed release tablet 40 mg = 1 tab, Oral, Daily Start Date: 05/13/22 Status: Ordered propranolol 20 mg oral tablet 3 tab, Oral, BID, # 168 tab, 0 Refill(s), Pharmacy: [facility] [address], 160, cm, 06/14/22 22:46:00 EST, Height/Length Dosing, 83, kg, 06/14/22 22:46:00 EST, Weight Dosing Start Date: 08/24/22 Status: Ordered venlafaxine 150 mg oral capsule, extended release 150 mg = 1 cap, Oral, Daily, # 90 cap, 3 Refill(s), Pharmacy: [facility], 160, cm, 08/31/22 11:50:00 EDT, Height/Length Dosing, 36.2, kg, 08/31/22 11:50:00 EDT, Weight Dosing Start Date: 09/01/22 Status: Ordered Vitamin B2 100 mg oral tablet See Instructions, TAKE 1 TABLET BY MOUTH DAILY, # 84 tab, 2 Refill(s), Pharmacy: [facility] [address], 168, cm, 09/01/22 14:46:00 EDT, Height/Length Dosing, 66.2, kg, 09/01/22 14:46:00 EDT, Weight Dosing Start Date: 09/03/22 Status: Ordered Vitamin C TR 500 mg oral capsule 1 cap, Oral, Daily, 0 Refill(s) Start Date: 12/17/21 Status: Ordered Mental Status 09/01/22 Eye Opening Response Otter Spontaneous ly Best Verbal Response Michael Oriented Best Motor Response Otter Obeys cecean ds Michael Coma Score 15 Problem List Condition Confirmation Course Effective Dates [...] Results Laboratory List Name Date Glucose POCT 09/03/22 Glucose POCT 09/03/22 Glucose POCT 09/02/22 Basic Metabolic Panel (BMP) 09/02/22 CBC w/ Diff 09/02/22 Automated Diff 09/02/22 CBC w/ Diff 09/01/22 Comprehensive Metabolic Panel (CMP) 09/01 Magnesium Level 09/01/22 Blood Glucose Monitoring POC 09/01/22 Automated Diff 09/01/22 Blood Glucose Monitoring POC 09/01/22 Blood Glucose Monitoring POC 09/01/22 Basic Metabolic Panel (BMP) 09/01/22 Blood Gas Venous 09/01/22 Magnesium Level 09/01/22 Phosphorus Level 09/01/22 Blood Gas Venous 08/31/22 Lactic Acid 08/31/22 Troponin-I 08/31/22 Lactic Acid 08/31/22 Troponin-I 08/31/22 Lactic Acid 08/31/22 Urinalysis with Micro if Indicated and C ulture if Indicated 08/31/22 Urinalysis Microscopic 08/31/22 Beta Hydroxybutyrate 08/31/22 Blood Gas Venous 08/31/22 CBC w/ Diff 08/31/22 Comprehensive Metabolic Panel 08/31/22 Creatine Kinase 08/31/22 Lipid Panel 08/31/22 Magnesium Level 08/31/22 SARS-CoV-2 (COVID-19)/Flu/RSV (GeneXpert ) 08/31/22 Troponin-I 08/31/22 Automated Diff 08/31/22 Most recent to oldest [Reference Range]: 1 2 3 WBC [5.0-10.0 x10^3/mcL] 4.8 x10^3/mcL *LOW* (09/02/22 7:03 AM) 4.9 x10^3/mcL *LOW* (09/01/22 8:40 AM) 6.0 x10^3/mcL (08/31/22 12:15 PM) RBC [4.1-5.3 x10^6/mcL] 3.8 x10^6/mcL *LOW* (09/02/22 7:03 AM) 3.9 x10^6/mcL *LOW* (09/01/22 8:40 AM) 4.8 x10^6/mcL (08/31/22 12:15 PM) Neutro Auto [40.0-75.0 %] 58.4 % (09/02/22 7:03 AM) 49.5 % (09/01/22 8:40 AM) 61.4 % (08/31/22 12:15 PM) Lymph Auto [20.0-50.0 %] 26.4 % (09/02/22 7:03 AM) 36.4 % (09/01/22 8:40 AM) 29.2 % (08/31/22 12:15 PM) Beadle Auto [2.0-15.0 %] 10.7 % (09/02/22 7:03 AM) 10.2 % (09/01/22 8:40 AM) 8.7 % (08/31/22 12:15 PM) Basophil Auto [0.0-1.0 %] 0.2 % (09/02/22 7:03 AM) 0.4 % (09/01/22 8:40 AM) 0.2 % (08/31/22 12:15 PM) BUN [7-18 mg/dL] 39 mg/dL *HI* (09/02/22 7:03 AM) 50 mg/dL *HI* (09/01/22 8:40 AM) 54 mg/dL *HI* (09/01/22 2:00 AM) Glucose POC [74-106 mg/dL] 275 mg/dL *HI* (09/03/22 11:29 AM) 135 mg/dL *HI* (09/03/22 7:42 AM) 185 mg/dL *HI* (09/02/22 10:07 PM) Cholesterol Total [50-200 mg/dL] 273 mg/dL *HI* (08/31/22 12:15 PM) UA Color Yellow (08/31/22 1:18 PM) UA WBC [0-3] 0-3 (08/31/22 1:18 PM) Whole Blood Glucose - Manual Entry [74-106 mg/dL] 185 mg/dL *HI* (09/01/22 8:00 AM) 180 mg/dL *HI* (09/01/22 6:00 AM) 163 mg/dL *HI* (09/01/22 4:00 AM) LDL [0-130 mg/dL] 176 mg/dL *HI* (08/31/22 12:15 PM) Glucose Level [74-106 mg/dL] 173 mg/dL *HI* (09/02/22 7:03 AM) 191 mg/dL *HI* (09/01/22 8:40 AM) 181 mg/dL *HI* (09/01/22 2:00 AM) Potassium Level [3.5-5.1 mmol/L] 3.8 mmol/L (09/02/22 7:03 AM) 3.3 mmol/L *LOW* (09/01/22 8:40 AM) 3.5 mmol/L (09/01/22 2:00 AM) MCV [80.0-96.0] 91.7 (09/02/22 7:03 AM) 90.3 (09/01/22 8:40 AM) 92.6 (08/31/22 12:15 PM) UA Urobilinogen Normal (08/31/22 1:18 PM) HDL [40-60 mg/dL] 49 mg/dL (08/31/22 12:15 PM) UA Bili [Negative] 1+ *ABN* (08/31/22 1:18 PM) CO2 Total Venous 24 mmol/L *NA* (09/01/22 2:00 AM) 23 mmol/L *NA* (08/31/22 7:24 PM) 22 mmol/L *NA* (08/31/22 12:15 PM) UA Ketones 1+ *ABN* (08/31/22 1:18 PM) HCO3 Venous [22-30 mmol/L] 23 mmol/L (09/01/22 2:00 AM) 22 mmol/L (08/31/22 7:24 PM) AST [15-37 unit/L] 34 unit/L (09/01/22 8:40 AM) 34 unit/L (08/31/22 12:15 PM) ALT [14-59 unit/L] 13 unit/L *LOW* (09/01/22 8:40 AM) 18 unit/L (08/31/22 12:15 PM) MCHC [31.0-35.0 g/dL] 32.8 g/dL (09/02/22 7:03 AM) 33.8 g/dL (09/01/22 8:40 AM) 32.7 g/dL (08/31/22 12:15 PM) Troponin-I [0.0-51.4 pg/mL] 490.8 pg/mL 1 *CRIT* (08/31/22 7:24 PM) 500.0 pg/mL 2 *CRIT* (08/31/22 4:15 PM) 530.6 pg/mL 3 *CRIT* (08/31/22 12:15 PM) Sodium Level [136-145 mmol/L] 140 mmol/L (09/02/22 7:03 AM) 141 mmol/L (09/01/22 8:40 AM) 139 mmol/L (09/01/22 2:00 AM) UA RBC [0-2] 0-2 (08/31/22 1:18 PM) UA Leuk Est Negative (08/31/22 1:18 PM) UA Nitrite Negative (08/31/22 1:18 PM) UA Glucose [Negative] 3+ *ABN* (08/31/22 1:18 PM) Hct [37.0-47.0 %] 34.4 % *LOW* (09/02/22 7:03 AM) 35.2 % *LOW* (09/01/22 8:40 AM) 44.9 % (08/31/22 12:15 PM) UA Bacteria Many /HPF *ABN* (08/31/22 1:18 PM) Triglycerides [0-150 mg/dL] 241 mg/dL *HI* (08/31/22 12:15 PM) Calcium Level [8.5-10.1 mg/dL] 10.8 mg/dL *HI* (09/02/22 7:03 AM) 10.6 mg/dL *HI* (09/01/22 8:40 AM) 10.3 mg/dL *HI* (09/01/22 2:00 AM) Phosphorus Level [2.6-4.7 mg/dL] 2.1 mg/dL *LOW* (09/01/22 2:00 AM) Albumin Level [3.4-5.0 g/dL] 2.7 g/dL *LOW* (09/01/22 8:40 AM) 3.5 g/dL (08/31/22 12:15 PM) Protein Total [6.4-8.2 g/dL] 6.4 g/dL (09/01/22 8:40 AM) 8.3 g/dL *HI* (08/31/22 12:15 PM) UA Protein 2+ *ABN* (08/31/22 1:18 PM) MCH [26.0-32.0 pg] 30.1 pg (09/02/22 7:03 AM) 30.5 pg (09/01/22 8:40 AM) 30.3 pg (08/31/22 12:15 PM) Magnesium Level [1.8-2.4 mg/dL] 1.6 mg/dL *LOW* (09/01/22 8:40 AM) 1.2 mg/dL *LOW* (09/01/22 2:00 AM) 1.7 mg/dL *LOW* (08/31/22 12:15 PM) Neutro Absolute 2.7 x10^3/mcL *NA* (09/02/22 7:03 AM) 2.4 x10^3/mcL *NA* (09/01/22 8:40 AM) 3.7 x10^3/mcL *NA* (08/31/22 12:15 PM) Bilirubin Total [0.2-1.0 mg/dL] 0.4 mg/dL (09/01/22 8:40 AM) 0.6 mg/dL (08/31/22 12:15 PM) Hgb [12.0-16.0 g/dL] 11.3 g/dL *LOW* (09/02/22 7:03 AM) 11.9 g/dL *LOW* (09/01/22 8:40 AM) 14.7 g/dL (08/31/22 12:15 PM) Alk Phos [46-146 unit/L] 89 unit/L (09/01/22 8:40 AM) 119 unit/L (08/31/22 12:15 PM) UA Blood Trace *ABN* (08/31/22 1:18 PM) pCO2 Romain [33-47 mmHg] 36 mmHg (09/01/22 2:00 AM) 39 mmHg (08/31/22 7:24 PM) 44 mmHg (08/31/22 12:15 PM) UA Mucous None Seen /HPF (08/31/22 1:18 PM) UA Spec Grav >=1.030 *NA* (08/31/22 1:18 PM) Platelets [130-450 x10^3/mcL] 103 x10^3/mcL *LOW* (09/02/22 7:03 AM) 106 x10^3/mcL *LOW* (09/01/22 8:40 AM) 154 x10^3/mcL (08/31/22 12:15 PM) CO2 [21-32 mmol/L] 24 mmol/L (09/02/22 7:03 AM) 21 mmol/L (09/01/22 8:40 AM) 22 mmol/L (09/01/22 2:00 AM) Lactic Acid Lvl [0.7-2.0 mmol/L] 2.6 mmol/L 4 *CRIT* (08/31/22 7:24 PM) 4.4 mmol/L 5 *CRIT* (08/31/22 4:15 PM) 2.4 mmol/L 6 *CRIT* (08/31/22 2:06 PM) UA Squam Epithelial [None Seen] Few *ABN* (08/31/22 1:18 PM) pO2 Romain 43 mmHg *NA* (09/01/22 2:00 AM) 44 mmHg *NA* (08/31/22 7:24 PM) 27 mmHg *NA* (08/31/22 12:15 PM) UA pH 5.5 *NA* (08/31/22 1:18 PM) pH Romain [7.32-7.43 pH unit(s)] 7.40 pH unit(s) (09/01/22 2:00 AM) 7.37 pH unit(s) (08/31/22 7:24 PM) 7.27 pH unit(s) *LOW* (08/31/22 12:15 PM) O2 Sat Romain 85 % *NA* (09/01/22 2:00 AM) 83 % *NA* (08/31/22 7:24 PM) 49 % *NA* (08/31/22 12:15 PM) eGFR Non-AA [>=60] 21 *LOW* (09/02/22 7:03 AM) 18 *LOW* (09/01/22 8:40 AM) 18 *LOW* (09/01/22 2:00 AM) eGFR AA [>=60] 21 *LOW* (09/02/22 7:03 AM) 18 *LOW* (09/01/22 8:40 AM) 18 *LOW* (09/01/22 2:00 AM) Base Excess Venous -1.8 mmol/L *NA* (09/01/22 2:00 AM) -3.0 mmol/L *NA* (08/31/22 7:24 PM) -6.5 mmol/L *NA* (08/31/22 12:15 PM) UA Appear Cloudy *ABN* (08/31/22 1:18 PM) Chloride Level [98-107 mmol/L] 106 mmol/L (09/02/22 7:03 AM) 108 mmol/L *HI* (09/01/22 8:40 AM) 106 mmol/L (09/01/22 2:00 AM) Blood Glucose, Capillary 159 (09/02/22 8:45 AM) RDW-CV [11.7-17.0 %] 13.3 % (09/02/22 7:03 AM) 13.4 % (09/01/22 8:40 AM) 13.4 % (08/31/22 12:15 PM) Imm Gran Auto [0.0-0.9 %] 0.2 % (09/02/22 7:03 AM) 0.4 % (09/01/22 8:40 AM) 0.2 % (08/31/22 12:15 PM) UA Culture Ind?. Indicated (08/31/22 1:18 PM) Creatinine Level [0.55-1.02 mg/dL] 2.31 mg/dL *HI* (09/02/22 7:03 AM) 2.60 mg/dL *HI* (09/01/22 8:40 AM) 2.66 mg/dL *HI* (09/01/22 2:00 AM) Employed in healthcare? Unknown *NA* (08/31/22 12:15 PM) Symptomatic as defined by CDC? Unknown *NA* (08/31/22 12:15 PM) Hospitalized due to COVID-19? Unknown *NA* (08/31/22 12:15 PM) In ICU? Unknown *NA* (08/31/22 12:15 PM) Group care resident? Unknown *NA* (08/31/22 12:15 PM) status? Unknown *NA* (08/31/22 12:15 PM) SARS-CoV-2(Covid19)PCR(GXper t COVFLURSV) [Negative] Positive *ABN* (08/31/22 12:15 PM) Flu A (GXpert COVFLURSV) [Negative] Negative (08/31/22 12:15 PM) RSV (GXpert COVFLURSV) [Negative] Negative (08/31/22 12:15 PM) Flu B (GXpert COVFLURSV) [Negative] Negative (08/31/22 12:15 PM) Beta-Hydroxybutyrate [0.0-0.5 mmol/L] 4.4 mmol/L *HI* (08/31/22 12:15 PM) Eos, Auto [1.0-6.0 %] 4.1 % (09/02/22 7:03 AM) 3.1 % (09/01/22 8:40 AM) 0.3 % *LOW* (08/31/22 12:15 PM) UA Yeast [None Seen] Few *ABN* (08/31/22 1:18 PM) CK [26-192 unit/L] 69 unit/L (08/31/22 12:15 PM) 1Result Comment: Called to and verbally verified by Kristina Doe at 08/31/2022 22:42:15 EDT. 2Result Comment: Called to and verbally verified by Lorna Garcia at 08/31/2022 16:52:40 EDT. 3Result Comment: Called to and verbally verified by 450 - ED - Makenzie Rene RN at 08/31/2022 13:09:26 EDT. 4Result Comment: Called to and verbally verified by Nissa Jones at 08/31/2022 19:32:57 EDT. 5Result Comment: Called to and verbally verified by Lorna Ross at 08/31/2022 16:30:34 EDT. 6Result Comment: Called to and verbally verified by Iris Lopez at 08/31/2022 14:13:08 EDT. Orders for Microbiology Reports Name Date Urine Culture 08/31/22 Microbiology Reports TEST:Urine Culture STATUS:Auth (Verified) BODY SITE: SOURCE:Urine COLLECTED DATE/TIME:08/31/22 1:18 PM FINAL REPORT >100,000 cfu/ml Mixed Mamta Vital Signs Most recent to oldest [Reference Range]: 1 2 3 Temperature Temporal Artery [36-38 Deg C] 36.9 Deg C (09/03/22 10:35 AM) 37.1 Deg C (09/03/22 5:59 AM) 36.8 Deg C (09/03/22 2:28 AM) Temperature Temporal Artery (DegF) [97.3-100 Deg F] 98.78 Deg F (09/03/22 5:59 AM) 98.78 Deg F (08/31/22 8:00 PM) Peripheral Pulse Rate [60-100 bpm] 71 bpm (09/03/22 10:35 AM) 80 bpm (09/03/22 8:12 AM) 78 bpm (09/03/22 5:59 AM) Heart Rate Monitored [60-100 bpm] 77 bpm (09/01/22 2:14 PM) 77 bpm (09/01/22 1:14 PM) 82 bpm (09/01/22 12:20 PM) Respiratory Rate [12-24 br/min] 18 br/min (09/03/22 10:35 AM) 18 br/min (09/03/22 5:59 AM) 18 br/min (09/03/22 2:28 AM) Blood Pressure [90-140/60-90 mmHg] 136/70mmHg (09/03/22 10:35 AM) 166/88mmHg *HI* (09/03/22 8:12 AM) 148/89mmHg *HI* (09/03/22 5:59 AM) Mean Arterial Pressure, Cuff [65-140 mmHg] 108 mmHg (09/02/22 4:00 PM) 114 mmHg (09/01/22 2:47 PM) Mean Arterial Pressure Cuff 89 mmHg (09/03/22 10:35 AM) 110 mmHg (09/03/22 8:12 AM) 100 mmHg (09/03/22 2:28 AM) Blood Pressure Location Left arm (09/02/22 2:23 AM) Left arm (09/01/22 9:37 PM) Left arm (09/01/22 9:37 PM) Weight 68 kg (09/02/22 7:29 AM) 66.200 kg (09/01/22 2:56 PM) 66.200 kg (09/01/22 2:46 PM) Weight Dosing 66.200 kg (09/01/22 2:46 PM) 36.20 kg (08/31/22 11:50 AM) Usual Weight 81.6 kg (09/01/22 2:56 PM) Height 168.000 cm (09/01/22 2:46 PM) 160.000 cm (08/31/22 11:44 AM) Height/Length Dosing 168.000 cm (09/01/22 2:46 PM) 160.000 cm (08/31/22 11:50 AM) Body Mass Index 23.460 kg/m2 (09/01/22 2:46 PM) 14.000 kg/m2 (08/31/22 11:44 AM) Social History Social History Type Response Tobacco Never tobacco user T obacco Use:. Sex Female Hospital Discharge Instructions Patient Education 09/03/2022 10:45:56 10 Things You Can Do to Manage Your COVID-19 Symptoms at Home - [facility] (12/20/2020) 10 Things You Can Do to Manage Your COVID-19 Symptoms at Home If you have possible or confirmed COVID-19 1. Stay home except to get medical care. 2. Monitor your symptoms carefully. If your symptoms get worse, call your healthcare provider immediately. 3. Get rest and stay hydrated. 4. If you have a medical appointment, call the healthcare provider ahead of time and tell them thatyou have or may have COVID-19. 5. For medical emergencies, call 911 and notify the dispatch personnel that you have or may have COVID-19. 6. Cover your cough and sneezes with a tissue or use the inside of your elbow. 7. Wash your hands often with soap and water for at least 20 seconds or clean your hands with an alcohol-based hand beef tagger that contains at least 60% alcohol. 8. As much as possible, stay in a specific room and away from other people in your home. Also, you should use a separate bathroom, if available. If you need to be around other people in or outside ofthe home, wear a mask. 9. Avoid sharing personal items with other people in your household, like dishes, towels, and bedding. 10. Clean all surfaces that are touched often, like counters, tabletops, and doorknobs. Use household cleaning sprays or wipes according to the label instructions. cdc.gov/coronavirus 12/20/2020 This information is not intended to replace advice given to you by your health care provider. Make sure you discuss any questions you have with your health care provider. Document Revised: 10/09/2021 Document Reviewed: 10/09/2021 [employer] Patient Education ?? 2021 [facility]. 09/03/2022 10:36:03 Diabetic Ketoacidosis Diabetic Ketoacidosis Diabetic ketoacidosis (DKA) is a serious complication of diabetes. This condition develops when there is not enough insulin in the body. Insulin is a hormone that regulates blood sugar (glucose) levels in the body. Normally, insulin allows glucose to enter the cells in the body. The cells break down glucose for energy. Without enough insulin, the body cannot break down glucose and breaks down fats instead. This leads to high blood glucose levels in the body. It also leads to the production of acids that are called ketones. Ketones are poisonous at high levels. If DKA is not treated, it can cause severe dehydration and can lead to a coma or . What are the causes? This condition develops when a lack of insulin causes the body to break down fats instead of glucose. This may be triggered by: ??? Stress on the body. This stress can be brought on by an illness. ??? Infection. ??? Medicines that raise blood glucose levels. ??? Not taking or skipping doses of diabetes medicines. ??? New onset of type 1 diabetes mellitus. ??? Missing insulin on purpose or by accident. ??? Interruption of insulin through an insulin pump. This can happen if the cannula that connects you to the insulin pump gets dislodged or kinked. What are the signs or symptoms? Symptoms of this condition include: ??? Early symptoms may include: ??? Excessive thirst or dry mouth or excessive urination. ??? More severe symptoms may include: ??? Abdominal pain, nausea, or vomiting. ??? Vision changes. ??? Fruity or sweet-smelling breath. ??? Irritability or confusion. ??? Rapid breathing. Signs shown by testing include: ??? High blood glucose. ??? High levels of ketones in the body. How is this diagnosed? This condition is diagnosed based on your medical history, a physical exam, and blood tests. You may also have a urine test to check for ketones. How is this treated? This condition may be treated with: ??? Fluid replacement. This may be done with IV fluids to correct dehydration. ??? Correcting high blood glucose with insulin. This may be given through the skin as injections orthrough an IV. ??? Electrolyte replacement. Electrolytes are minerals in your blood. Electrolytes such as potassium and sodium may be given in pill form or through an IV. ??? Antibiotic medicines. These may be prescribed if your condition was caused by an infection. DKA is a serious medical condition. You may need emergency treatment in the hospital so that you can be monitored closely. Follow these instructions at home: Medicines ??? Take ofbt-rwc-rlnhppr and prescription medicines only as told by your health care provider. ??? Continue to take insulin and other diabetes medicines as told by your health care provider. ??? If you were prescribed an antibiotic medicine, take it as told by your health care provider. Donot stop using the antibiotic even if you start to feel better. Eating and drinking ??? Drink enough fluid to keep your urine pale yellow. ??? If you are able to eat, follow your usual diet and drink sugar-free liquids, such as water, tea, and sugar-free soft drinks. You can also have sugar-free gelatin or ice pops. ??? If you are not able to eat, drink liquids that contain sugar in small amounts as you are able. Liquids include fruit juice, regular soft drinks, and sherbet. Checking ketones and blood glucose ??? Check your urine for ketones when you are ill and as told by your health care provider. ??? If your blood glucose is 240 mg/dL (13.3 mmol/L) or higher, check your urine ketones every 4 hours. If you have moderate or large ketones, call your health care provider. ??? To check your ketone levels follow these steps: ??? Collect urine in a small cup. ??? Dip a test strip in the urine. ??? Wait for it to change color. ??? Compare the strip to the color chart that comes with the test kit. ??? Check your blood glucose every day, and as often as told by your health care provider. ??? If your blood glucose is high, drink plenty of fluids. This helps flush out ketones. ??? If your blood glucose is above your target for two tests in a row, contact your health care provider. General instructions ??? Carry a medical alert card or wear medical alert jewelry that shows that you have diabetes. ??? Do exercises as told by your health care provider. Do not exercise when your blood glucose is high and you have ketones in your urine. ??? If you get sick, call your health care provider and begin treatment quickly. Your body often needs extra insulin to fight an illness. Check your blood glucose every 4 hours when you are sick. ??? Keep all follow-up visits. This is important. Where to find more information For more information, guidance, and advice, look online here: ??? [place] [employer]: diabetes.org ? ? Association of Diabetes Care & Education Specialists: diabeteseducator.org Contact a health care provider if: ??? Your blood glucose level is higher than 240 mg/dL (13.3 mmol/L) for 2 days in a row. ??? You have moderate or large ketones in your urine. ??? You have a fever. ??? You cannot eat or drink without vomiting. ??? You have been vomiting for more than 2 hours. ??? You continue to have symptoms of DKA. ??? You develop new symptoms. Get help right away if: ??? Your blood glucose monitor reads high even when you are taking insulin. ??? You faint. ??? You have chest pain or you have trouble breathing. ??? You have sudden trouble speaking or swallowing. ??? You have vomiting or diarrhea that gets worse after 3 hours. ??? You are unable to stay awake or you have trouble thinking. ??? You are severely dehydrated. Symptoms of severe dehydration include: ??? Extreme thirst. ??? Dry mouth. ??? Rapid breathing. These symptoms may represent a serious problem that is an emergency. Do not wait to see if the symptoms will go away. Get medical help right away. Call your local emergency services (911 in the [place] Do not drive yourself to the hospital. Summary ??? DKA is a serious complication of diabetes. This condition develops when there is not enough insulin in the body. ??? This condition is diagnosed based on your medical history, a physical exam, and blood tests. You may also have a urine test to check for ketones. ??? DKA is a serious medical condition. You may need emergency treatment in the hospital to monitoryour condition. ??? Contact your health care provider if your blood glucose is higher than 240 mg/dL for 2 days in a row or if you have moderate or large ketones in your urine. This information is not intended to replace advice given to you by your health care provider. Make sure you discuss any questions you have with your health care provider. Document Revised: 06/03/2021 Document Reviewed: 03/26/2021 Elsevier Patient Education ?? 2021 [employer] Follow Up Care 08/31/2022 11:44:48 With:Jeannine Fernandes MD Address: [place], [place] [id number]- When:09/21/2022 Comments:HOSPITAL FOLLOW UP Discharge instructions * Kay Dale: PERFORM Event Display: Discharge Instructions Authored Date: [id number] DANIELE BROOKSDino Ga :1945 Age:77 years Sex:Female Visit Date:08/31/2022 Primary Care Physician: Jeannine Fernandes MD Hospital Discharge Instructions We would like to thank you for allowing us to assist you with your healthcare needs. The following includes patient education materials and information regarding your injury/illness. Your Next Steps Discharge Orders Discharge Activity Restrictions, As Instructed by Physical Therapy Discharge Diet Instruction, Regular home diet Follow Up Appointments Follow Up with??Jeannine Fernandes MD When:??09/21/2022 01:40 AM EDT Why: HOSPITAL FOLLOW UP Where: [place] [address]- The Following Services Have Been Arranged for You New referral for Home Health through [facility] [phone] Medications What How Much When Why Instructions Next Dose New doxycycline (doxycycline monohydrate 100 mg oral capsule) 1 Capsules Oral (given by mouth) Every 12 hours Duration: 3 Days Pickup at [facility] 09/03 @ 7pm Changed ferrous gluconate (ferrous gluconate 324 mg (38 mg elemental iron) oral tablet) 1 tab Oral (given by mouth) Every day 09/04 @ 9am Changed folic acid (folic acid 1 mg oral tablet) 1 tab Oral (given by mouth) Every day 09/04 @ 9am Changed venlafaxine (venlafaxine 150 mg oral capsule, extended release) 1 Capsules Oral (given by mouth) Every day 09/04 @ 9am Unchanged amLODIPine (amLODIPine 5 mg oral tablet) 1 tab Oral (given by mouth) Every day 09/04??@ 9am Unchanged ascorbic acid (Vitamin C TR 500 mg oral capsule) 1 Capsules Oral (given by mouth) Every day Resume Unchanged aspirin (aspirin 81 mg oral tablet, chewable) 1 tab Oral (given by mouth) Every day 09/04 @ 9am Unchanged atorvastatin (atorvastatin 40 mg oral tablet) 1 tab Oral (given by mouth) Every day 09/03 @ 5pm Unchanged Durable Medical Equipment for Prescription (BD UF Pen Needle Mini [id number]) See instructions DM2 (diabetes mellitus, type 2) Use one needle for each injection daily. (current Injections are 4 times daily) ?? Unchanged Durable Medical Equipment for Prescription (Glucerna) See instructions Twice a day ?? Unchanged Durable Medical Equipment for Prescription (Onetouch Ultra Blue Test Strips) See instructions Diabetes use as directed four times daily ?? Unchanged insulin aspart (NovoLOG FlexPen 100 units/ mL injectable solution) 5 Units Subcutaneous (under the skin) 3 times a day before meals 09/03 @ 4:30pm & 9pm Unchanged insulin detemir (Levemir FlexTouch 100 units/ mL subcutaneous solution) 15 Units Subcutaneous (under the skin) Every night at bedtime Resume Unchanged magnesium oxide (magnesium oxide 400 mg (241.3 mg elemental magnesium) oral tablet) 1 tab Oral (given by mouth) 2 times a day 09/03 @ 9pm Unchanged melatonin (Melatonin 3 mg oral tablet) 1 tab Oral (given by mouth) Every night at bedtime Resume Unchanged memantine (memantine 5 mg oral tablet) 1 tab Oral (given by mouth) 2 times a day 09/03 @ 9pm Unchanged metoprolol (Metoprolol Succinate ER 25 mg oral tablet, extended release) 1 tab Oral (given by mouth) Every day TAKE ONE TABLET BY MOUTH EVERY DAY ?? 09/04 @ 9am Unchanged mupirocin topical (mupirocin 2% topical ointment) See instructions APPLY A SMALL AMOUNT TOPICALLY TO AFFECTED AREA(S) THREE TIMES A DAY ?? resume Unchanged nitroglycerin (nitroglycerin 0.4 mg sublingual tablet) 1 tab Sublingual (dissolve under the tongue) Every 5 minutes not to exceed 3 doses/ 15 min--if pain persists, seek medical attention ?? as needed Unchanged Other Prescription (BD Pen Needle Mini U/ F 31G X 5 MM MISC) See instructions USE FOUR TIMES A DAY DIRECTED ?? Unchanged Other Prescription (BD UF MINI PEN NEEDLE [id number]) See instructions USE DIRECTED FOUR TIMES A DAY NEEDED ?? Unchanged oxybutynin (oxybutynin 5 mg oral tablet) 1 tab Oral (given by mouth) 2 times a day as needed for as needed for urinary discomfort 2-3 TIMES DAILY NEEDED ?? As needed Unchanged pantoprazole (pantoprazole 40 mg oral delayed release tablet) 1 tab Oral (given by mouth) Every day 09/04 @ 7am Unchanged propranolol (propranolol 20 mg oral tablet) 3 tab Oral (given by mouth) 2 times a day resume Unchanged riboflavin (Vitamin B2 100 mg oral tablet) 1 tab Oral (given by mouth) Every day resume Pharmacy Information [facility]: [address] [place], [place] [id number] [phone] ?? What How Much When Comments Stop Taking acetaminophen (acetaminophen 500 mg oral tablet) 2 tab Oral (given by mouth) Every 6 hours as needed for not specified Stop Taking glucagon (Glucagon Emergency Kit for Low Blood Sugar 1 mg injection) Stop Taking lidocaine topical (lidocaine 5% topical film) 1 patch(es) Topical (on the skin) Every day remove patches after 12 hours ?? Stop Taking loperamide (loperamide 2 mg oral capsule) 1 Capsules Oral (given by mouth) Every 4 hours as needed for as needed for loose stool Stop Taking LORazepam (Ativan 0.5 mg oral tablet) 0.5 tab Oral (given by mouth) Every night at bedtime Stop Taking selenium sulfide topical (selenium sulfide 2.5% topical lotion) 1 Application Topical (on the skin) Every 48 hours USE SHAMPOO EVERY OTHER DAY WHEN SHE SHAMPOOS ?? Your Summary Your Care Team Admitting Physician - Sandra Melo MD Attending Physician - Sandra Melo MD Primary Care Physician - Jeannine Fernandes MD Your Diagnosis DKA (diabetic ketoacidosis) DKA (diabetic ketoacidosis) COVID-19 DEL (acute kidney injury) Type 2 myocardial infarction Hypomagnesemia Chronic kidney disease stage 4 Hypertensive disorder Gastroesophageal reflux disease Depressive disorder Problems Ongoing - Any problem that you are currently receiving treatment for. Anemia Anxiety Atrial thrombus Atrophic gastritis Chest [...] complication Urinary incontinence Urinary tract infectious disease Discharge Vitals Temperature??(Temporal Artery) 98.4 ??F (36.9 ??C) Heart Rate??(Peripheral) 71 Respiratory Rate?? 18 Blood Pressure?? 136/70?? Allergies azithromycin??(Skin rash) codeine??(Rapid heart beat) Patient Name:MARIA INES BROOKS I have received this information and my questions have been answered. Patient/Plant Guard Name: Patient/Plant Guard Signature: Relationship to Patient: Witness Name/Signature: Date: Electronically Signed on: 09/03/2022 12:06 EDTSigned by:DARIUS Occupational therapy Progress note * Cherise Edwards: PERFORM Event Display: Occupational Therapy Progress Note Authored Date: [id number] Order received, chart reviewed. This therapist attempted OT tx session at 1400. Patient supine in bed, resting upon OT arrival. Patient states It's not 3 yet, I go home at 3. Patient very pleasant but deferring OT tx session to rest before discharge home. Discharge note documented in chart. No charge this date. Electronically Signed on 09/03/22 02:13 PM Cherise Edwards * Mary Nunn OT: PERFORM Event Display: Occupational Therapy Progress Note Authored Date: Patient ID and date of checked: Confirmed *Current Level of Care:??Observation *Admitting Diagnosis: Acute metabolic encephalopathy secondary to diabetic ketoacidosis *Therapy Diagnosis: Increased need for assistance with personal care Pertinent Medical History: Patient arrived to ED via EMS for AMS, urinary incontinence, weakness, and recent fall 1 week ago. Patient placed on observation 08/31/22 for above diagnosis. She is also COVID [address] was not significant for any acute findings. Patient is well known to this facility. Other medical history includes but not limited to anemia, CKD stage 4, DJD shoulders, depression, essential tremor, HLD, HTN, GERD, IBS, PTSD, DM2. Precautions: Enhanced airborne precautions for COVID 19 infection. Fall risk. *Subjective:??Patient resting in bed at OT arrival. Patient reports that the doctor advised her to push fluids and then goes on to demonstrate adherence, drinking full milk carton and cup of orange juice. Patient easily agrees to OT treatment session, including formal cognitive assessment. She did request for bilateral bed railings to be raised prior to OT departure. Bed alarm on, RN aware. Pain:??Patient continues to experience awful headache, reports it has not improved since yesterday.She does endorse migraines since before her COVID vaccinations. ADLs: Activity Assistance Comments Bathing Upper Body Bathing Lower Body Dressing Upper Body Dressing Lower Body ??min assist ??patient independently removes both socks in long sitting, she independently dons new right sock, requires assist to don left sock. Patient independently threads clean pull up over both feet, standsat RW and pulls clothing item over hips with good dynamic standing balance. Assist was provided to doff soiled brief prior. Eating ??independent ??including straw and utensil use Shaving Combing Hair Brushing Teeth Toileting ??urinary incontinence (prior to OT arrival) Bed Mobility: Activity Assistance Comments Rolling Scooting/Repositioning ??independent Supine to Sit ??independent ??with HOB lowered Sit to Supine ??independent Transfers: Activity Assistive Device Assistance Comments Sit to Stand ??RW ??Supervision ??from EOB 2x Stand to Sit ??Supervision ??fairly controlled descent Bed to Chair Chair to Bed Shower Transfer Toilet Transfer Functional Ambulation During ADLs: Assistance Assistive Device Distance Comments ??Supervision ??RW ?? 8 ft x4 ?? bed <> door, effective management and controlled turning with RW Balance: ?Static Sitting:?good ?Dynamic Sitting:?good ?Static Standing:?good ?Dynamic Standing:?good Skilled Treatment/Training in Safe Performance of/Correct Techniques with: ?Self-Care: Patient provided with opportunity to complete LB dressing tasks, following urinary incontinence, with therapist facilitation to maximize patient safety and independence during ADL, including instruction for seated positioning and the implementation and use of appropriate AD for improved balance management during dynamic standing tasks. ?Therapeutic Activities: Patient assessed with the [facility] Mental Status ([facility]) examination, to screen for the presence of cognitive deficits that may affect ADL performance and/orthe ability to return home alone and live independently. Patient also provided with the opportunityto perform brief functional mobility, with use of RW and integration of seated rest breaks to reduce physical exertion following. Training for appropriate hand placement during graded movement. Patient scored 20/30 on SLUMS examination. This score is indicative of mild neurocognitive disorder. Patient is fully oriented during formal assessment, despite patient previously reporting that she is at a restaurant and named her ED stretcher Flynn. Patient spontaneously recalls 5/5 items during delayed recall task, requiring absolutely no cueing. She scored 0/3 during numeric calculation and registration task. Patient names 14 animals during immediate recall with task interference (time restraint of 1 minute), scoring 2/3. Patient scored 2/2 during registration and digit span task. Patient unable to accurately place hour markers or time on clock face, 0/4 points. (note that patient's glasses are at home) Patient scores 6/8 during executive function and extrapolation task. Skilled Treatment/Training in Safe Performance of/Correct Technique with: Caregiver training ??x Use of adaptive equipment ??x Energy conservation during ADLs Precautions during ADLs Weight bearing during ADLs Family assisting with ADLs ??x Variations/graded heights/surfaces Appropriate weight bearing Appropriate foot placement for transfer ??x Appropriate hand placement for transfer Techniques for HEP HEP instruction/modification PROM to decrease contractions PROM to increase ROM AAROM to increase strength/ROM AROM/open chain exercises to increase strength/ROM AROM/open chain exercises to improve gait stability and decrease risk of falls Positioning and techniques for edema reduction ??x Balance management Coordination strategies/retraining ??x Cognitive assessment Proprioceptive strategies for sitting/standing activities ??x Dressing strategies *Patient Education:??Purpose and results of SLUMS examination. Recommendation to mobilize with nursing staff multiple times daily, using RW. Balance management strategies during ADL (namely pant management). *Occupational Therapy Assessment:??Patient demonstrates increased independence during all functional mobility with ADLs today, still, she is limited by fatigue, requiring seated rest breaks for energy conservation. She does also benefit from skilled training and education to maximize balance duringdressing tasks. Patient's SLUMS examination score is indicative of mild neurocognitive impairment, still, this is likely patient's baseline cognition and it is not currently impeding her ability to perform any ADL. Given functional improvement from yesterday, I am now recommending home health therapy services upon discharge from this facility, to maximize patient's safety in her home environment.Patient's current goal is to return home, with her cat [place]. Still, if patient does choose to pursue placement in the near future, she would certainly be an appropriate candidate for a level 3 facility. Goal Updates: Due 09/08 *OT Plan of Care: Continue as per OT POC *CPT Charge Codes: CPT Code Units Minutes CPT 48830: Therapeutic Exercise ??x CPT 06255: Therapeutic Activity ??2 ??27 CPT 95913: Neuromuscular Re-education ??x CPT 66911: Self-Care/Home Management ??1 ??16 CPT 43947: Manual Therapy CPT 15583: Massage CPT 10256: Ultrasound CPT 49612: Initial Orthotic Fit/Train CPT 12989: Initial Prosthetic Train CPT 78532:??Subsequent??Orthotic??Check CPT 63850:??Wheelchair??Management??Training CPT G0515: Cognitive Skills *Total Time: 43 minutes *Time In: 08:50 *Time Out: 09:33 Electronically Signed on 09/02/22 12:27 PM Edoaurd, Mary L OT * Mary Nunn OT: PERFORM Event Display: Occupational Therapy Progress Note Authored Date: [id number] Patient ID and date of checked: Confirmed *Current Level of Care: Observation *Admitting Diagnosis: Hypomagnesium, COVID 19+ *Therapy Diagnosis: Increased need for assistance with personal care Pertinent Medical History: Patient arrived to ED via EMS for AMS, urinary incontinence, weakness, and recent fall 1 week ago. Patient placed on observation 08/31/22. CT was not significant for any acute findings. Patient is well known to this facility. Other medical history includes but not limited to anemia, CKD stage 4, DJD shoulders, depression, essential tremor, HLD, HTN, GERD, IBS, PTSD, DM2. *Subjective: Patient resting on ED stretcher at OT and PT arrival. Patient very easily agrees to therapy evaluations, still, she is limited by a headache with all movement. Patient requesting ice chips. All needs in reach, patient comfortably reclined, and rails up at therapy departure. RN aware. Hand Dominance: Right *Barriers to Learning: None Communication Cultural Education level Hearing Language Vision Physical ??x Cognitive Motivational Emotional Acute medical condition Precautions: ??x Standard precautions MRSA/VRE Contact precautions Droplet precautions Airborne precautions Covid precautions Total hip replacement Total knee replacement Total shoulder replacement ??x Fall risk *Previous Level of Function: Patient lives at home alone, with assistance from caregivers for 5 hours daily Wednesday-, and sometimes on Wednesday. Patient reports independence with all ADL including showering and dressing, given use of front wheeled walker with tray attachment. She does not drive. Her caregivers assist with meal preparation and cleaning tasks. 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 Prior Home Setup: ?Living Situation/Level of Supervision: lives alone/ limited supervision ?Living Environment: apartment with 2 entrances, patient uses back entrance which does not require any stairs to enter. Bathroom has tub/shower with seat, patient reports anticipated plan to renovate this, including walk in shower. ?Home Equipment: RW *Current Level of Function: Pain: Headache, numeric rating not provided. Vision/Hearing: Patient reports corrective lenses are at home, hearing is intact. Cognition: ? Alertness level: alert ? Attention: impaired, supplemental cueing required ? Communication: expresses needs verbally ? Follows commands: follows 75% of single step instruction ? Insight into deficits: impaired ? Memory?short term: impaired ? Memory?joint terminal attack controller: grossly intact, not formally assessed ? Orientation: O x3 (patient reports accurate month and year but not date) ? Safety awareness: impaired Upper Extremity Passive/Active Range of Motion: B UE AROM is WFL Manual Muscle Testing: B UE strength is grossly 4/5 Proprioception/Sensation: Patient denies any acute sensory changes in any extremity Coordination: ?Fine Motor: intact ?Gross Motor: intact ADLs: Activity Assistance Comments Bathing Upper Body Bathing Lower Body Dressing Upper Body Dressing Lower Body ??min assist ??patient is incontinent of urine, found in soiled brief. patient unable to perform brief change atbedside secondary to headache and dizziness, so performed in supine/bridging with min assist to thread over feet and bone char puller hips Eating ??independent Shaving Combing Hair Brushing Teeth Toileting ??incontinent of urine, declines need for further toileting Bed Mobility: Activity Assistance Comments Rolling Scooting/Repositioning ??min assist ??with pull pad to HOB Supine to Sit ??independent ??HOB slightly elevated. BP is 146/86 in sitting Sit to Supine ??independent Transfers: Activity Assistive Device Assistance Comments Sit to Stand ??RW ??CGA ??from EOB Stand to Sit ??CGA Bed to Chair Chair to Bed Shower Transfer Toilet Transfer Functional Ambulation During ADLs: Assistance Assistive Device Distance??(ft) Comments ??CGA ??RW ??8 ft steps at EOB only, limited by dizziness Balance: ?Static Sitting: fair+ ?Dynamic Sitting: fair ?Static Standing: fair ?Dynamic Standing: poor *Standardized Testing: Standardized Test Score Comments AM-PAC Celena Index Marcial Balance Score PASS SLUMS Short Blessed Test Ricco Cognitive Assessment Modified Celena Index ??65/100 Score indicates moderate dependence with ADL Motor Assessment Scale Quick DASH *Patient Education: Patient introduced to this therapist and provided with brief scope of acute OT services. Upcoming plan of care. *Occupational Therapy Assessment: Patient is a 77-year-old female currently on observation for hypomagnesium, also with COVID-19 infection, following multiple days of increasing weakness and AMS. At baseline, patient lives at home alone and is reportedly independent with all ADLs using a rolling walker for functional mobility. Patient presents with good participation during OT evaluation, still, she is limited by a headache and dizziness during brief functional performance at bedside, needing to complete LB dressing in supine position this date. Patient is currently below her functional baseline, requiring increased need for assistance with all personal care. She will benefit from skilled OT services to maximize strength, independence, and safety during ADL. Given current functional performance, this therapist recommending STR placement upon discharge from this facility. *Rehab Potential: Good?to reach the established goals *Short Term Goals?time frame: deferred to LTG *Maintenance Services Dispatcher Goals?time frame: timeframe is 1 week 1. Patient will perform LB dressing with supervision and use of RW. 2. Patient will perform toileting, including transfer, hygiene, and pant management, with SBA and use of RW. 3. Patient will be safe during all functional mobility with ADL, with supervision and use of RW. *Patient Goals: Agreeable to rehab during therapy session this morning. OT Plan of Care: *Treatment Duration: 1 week *Treatment Frequency: 5x/week *Treatment Intensity: 30 minutes *Planned Treatment Interventions: Home assessment and modification education Manual therapy Neuromuscular re-education Pain management education ??x Patient/family education ??x Self-care/ Home management Orthoses/prosthesis fabrication and training ??x Therapeutic activities ??x Therapeutic exercises ??x Cognitive skills training Wheelchair management training *Discharge Plan: maximal benefit of therapy Discharge Recommendations: ?Post discharge Rehab needs: rehab facility ?Supervision needs: 24 hour supervision ?Discussed plan of care with: patient, PT, RN, MD, CM *Procedure Documentation: CPT 63858: Low Complexity OT Evaluation:??26 minutes Occupational Therapy Low Complexity Evaluation performed. History involves expanded review. Examination of performance deficit(s) includes 3-5 elements. Clinical decision making includes several?? treatment option considerations. present?comorbidities. Task modifications/assistance are minimal to moderate. *Total Time: 26 minutes *Time In: 09:19 *Time Out: 09:45 Electronically Signed on 09/01/22 11:20 AM Mary Nunn OT EKG study * Event Display: Telemetry Strips Please click on link to view image. * Event Display: Telemetry Strips Please click on link to view image. * Event Display: Telemetry Strips Please click on link to view image. Pharmacology Progress note * Soniya Artis PharmD: PERFORM Event Display: Pharmacy Progress Note Authored Date: [id number] Pharmacy Progress Note Med Rec updated with [facility]. A large number of pt's meds were just filled 08/31/22 Electronically Signed on 09/01/22 12:26 PM Soniya Artis PharmD Physician Emergency department Note * Brenton Lisa MD: PERFORM Event Display: ED Note Physician Authored Date: [id number] 77-year-old female past medical history of diabetes was signed out to me by previous physician Dr. Dutton. Patient was in DKA, started on insulin drip and IV fluids with potassium and glucose. Unable to find an ICU prior to my arrival, plan was to keep the patient in the ER to treat DKA and transition to subcutaneous insulin if labs improved. On follow-up labs, anion gap improved to 14, pH normalized, and bicarb normalized and glucose was less than 180, thus 0.2 units/kg of subcutaneous insulin glargine was administered and insulin drip was left on for 2 hours and then stopped. Patient was transitioned off of D5 and placed on normal saline maintenance. POC glucose every 2 hours. BMP, VBG, m agnesium, phosphorus repeat at 2 AM. Patient clinically in no acute distress and stable. Electronically Signed on 09/01/22 12:45 AM Brenton Lisa MD * Brenton Lisa MD: PERFORM Event Display: ED Note Physician Authored Date: [id number] On repeat labs, anion gap was 12 and pH normalized. Glucose was slightly increasing in the 100 range up to 180 after 0.2 units/kg of insulin glargine, thus an additional 6 units was given around 6:30AM. Patient has not had any meals to this point. Will be on sliding scale on reintroduction of dietlater in the morning. Spoke with hospitalist who accepts admission. Magnesium was low, replaced IV. Electronically Signed on 09/01/22 06:36 AM Brenton Lisa MD * Brenton Lisa MD: PERFORM Event Display: ED Note Physician Authored Date: [id number] Troponins continue to downtrend, patient continues to deny chest pain. Electronically Signed on 09/01/22 06:37 AM Brenton Lisa MD * Sang Dutton MD: PERFORM Event Display: ED Note Physician Authored Date: [id number] MARIA INES BROOKS :1945 Age:77 years Sex:Female Visit Date:08/31/2022 Primary Care Physician: Jeannine Fernandes MD Basic Information Time Seen: Sang Dutton MD / 08/31/2022 11:46 Chief Complaint [facility]NA called for AMS, A&Ox4 for EMS, reports h/o diabetes, incontinent of urine, weakness, has not gotten out of bed x4 days and has not taken medication since then, lives home alone. Fall at home over a week ago per EMS without LOC. History Of Present Illness: This is a pleasant 77-year-old lady who presents today for evaluation of generalized weakness with reported confusion earlier this morning.?? Her usual [facility] nurse has been out for the last several days secondary to COVID so patient has not had??in-home services during this time nor has she taken anyof her medication. ??She reports that she has not been able to get out of the bed in these last 4 days secondary to generalized weakness.?? She does report a fall perhaps a week or so ago, she statesthat her cat Mr. Cool??got under her feet and caused her to trip and fall striking her forehead on the ground. ??She does not think that she sustained any other injuries.?? At present, other than the bruise on her forehead she has no complaints other than thirst. ??She denies any chest pain, shortness of breath, abdominal pain, nausea, vomiting. Review of Systems: Positive for headache,??generalized weakness, otherwise as noted in the HPI Physical Exam Vitals & Measurements T:??37.0?C ??(Temporal Artery)?? HR:??94??(Peripheral)?? HR:??96??(Monitored)?? RR:??16?? BP:??142/68?? SpO2:??97%?? HT:??160.000??cm?? WT:??36.20??kg?? BMI:??14.000?? Pain Score:??0?? O2 Therapy:??Room air?? Vital signs and nursing notes reviewed ?? CONSTITUTIONAL: _Appears ill but nontoxic SKIN: _Warm, dry, and intact without rash EYES: _extraocular movements are grossly intact, clear conjunctiva HENT: _Normocephalic, atraumatic, dry mucus membranes NECK: _no obvious swelling,??no tenderness, normal range of motion PULMONARY: _normal chest rise and fall, lungs clear bilaterally with easy work of breathing,??no respiratory distress or stridor CARDIOVASCULAR: _regular rate,??regular rhythm, distal extremities are warm and well perfused GASTROINTESTINAL: _nondistended??nontender, superficial appearing bruise without hematoma or significant tenderness noted left lower quadrant GENITOURINARY: _deferred NEUROLOGIC: _normal speech, moves all extremities with equal strength and coordination MUSCULOSKELETAL: _no gross deformities, atraumatic PSYCHIATRIC: _normal mood and affect ? Medical Decision Makin-year-old lady presenting today for evaluation of confusion, is noted to appear somewhat unwell but is hemodynamically stable, afebrile, no evidence of tachycardia??or tachypnea on my exam. ??She notes headache from fall??but no other acute complaints. ??Differential includes but is not limited to hypovolemia, infectious etiology,??DKA,??electrolyte or metabolic derangement, acute coronary syndromes, other. ??We will plan to check labs as ordered??and CT head given her fall recently. Critical Care Time Spent Upon my evaluation, this patient had a high probability of imminent or life- threatening deterioration due to??__DKA, type II MI_ which required my direct attention, intervention, and personal management. ?? I have personally provided __41_ minutes of critical care time exclusive of time spent on separately billable procedures. Time includes examination of the patient, obtaining history from the patient and family, review of previous medical records,??ordering and??review of laboratory data, radiology results, medications, developing treatment plan with the patient,??evaluating the patient's response to treatment, discussion with consultants, and monitoring for potential decompensation. Interventions were performed as documented?? Procedure No Qualifying Data Reexamination/Reevaluation Labs reviewed, venous blood gas shows pH of 7.2 .?? CBC is largely within normal limits.?? Chemistry shows DEL on CKD with creatinine of 3.6 today up from baseline closer to 3.?? Her blood sugar is elevated at 561 and beta hydroxybutyrate is elevated at 4.4.?? Initial lactate is elevated at 2.4.?? Her troponin is elevated at 530, EKG is without obvious regional ischemia.?? Her COVID 19 swab is positive.?? Especially with positive COVID contact from her [facility] staff, suspect she likely contracted COVID, has had poor p.o. intake and has not had any of her medications over the last several days with resultant metabolic derangements and likely type II KS.?? We will plan to trend the troponin, started on DKA protocol given acidosis and anion gap of 26. ?? Repeat labs show improvement in gap to 18, lactate is mildly elevated however at 4. ??Troponin improved to 500.?? We will plan to continue hydration and recheck.?? In discussion with warehouse puller/hospitalist,??we will need to transition to??subcutaneous insulin??prior to admission.?? Discussed with Dr. Lisa at shift change,??if gap has closed on recheck of labs,??can make this transitionand formally admit. ?? Medical Decision-Making: Clinical lab tests: ordered and reviewed -??Yes Tests in the radiology section of CPT??: ordered and reviewed -??Yes Tests in the medicine section of CPT??: ordered and reviewed -??Yes Discuss the patient with other providers -??Yes Independent visualization of images, tracings, or specimens? Yes Assessment/Plan 1.??DKA (diabetic ketoacidosis)??E11.10 Ordered: Dextrose 5% with 0.45% NaCl and KCl 20 mEq/L 1,000 mL, Total Volume (mL): 1,000, 1,000 mL, Soln-IV,IV, 125 mL/hr, Start Date: 08/31/22 13:18:00 EDT, 36.2 kg, Populate Charting Weight From Order, 1.27, m2 Sodium Chloride 0.45% 1,000 mL, Total Volume (mL): 1,000, 1,000 mL, Soln, IV, 300 mL/hr, Start Date: 08/31/22 13:18:00 EDT, 36.2 kg, Populate Charting Weight From Order, 1.27, m2 NS 100 mL + insulin regular IV additive 100 units, Total Volume (mL): 100, 100 mL, Soln, IV, Titrate - see comment, Start Date: 08/31/22 13:18:00 EDT, Starting dose: 0.1 unit/kg/hr, 36.2 kg, PopulateCharting Weight From Order, 1.27, m2 Intake and Output, 08/31/22 13:18:00 EDT, Constant Indicator, DKA (diabetic ketoacidosis), 08/31/2312:18:00 EDT Pulse Oximetry Continuous, 08/31/22 13:18:00 EDT, Once, Stop date 08/31/22 13:18:00 EDT, DKA (diabetic ketoacidosis) Vital Signs, 08/31/22 13:18:00 EDT, Constant order, q15min until stable and SBP greater than 90, then Q1hour, DKA (diabetic ketoacidosis) ?? 2.??COVID-19??U07.1 ?? 3.??DEL (acute kidney injury)??N17.9 ?? Orders: Sodium Chloride 0.9% 1,000 mL, Total Volume (mL): 1,000, 1,000 mL, Soln-IV, IV, 999 mL/hr, Start Date: 08/31/22 14:21:00 EDT, 36.2 kg, Populate Charting Weight From Order, 1.27, m2 Sodium Chloride 0.9% 1,000 mL, Total Volume (mL): 1,000, 1,000 mL, Soln-IV, IV, 999 mL/hr, Start Date: 08/31/22 14:23:00 EDT, 36.2 kg, Populate Charting Weight From Order, 1.27, m2 Urine Culture, Urine, Stat collect, ST - Stat, 08/31/22 13:18:06 EDT, Once, Nurse collect, Collected, 08/31/22 13:18:06 EDT, Print Label, [id number] Medication Reconciliation Unchanged acetaminophen (acetaminophen 500 mg oral tablet)2 tab Oral (given by mouth) every 6 hours as needednot specified. ?? amLODIPine (amLODIPine 5 mg oral tablet)1 tab [...] by mouth) every day. Refills: 0. ?? Durable Medical Equipment for Prescription (BD UF Pen Needle Mini [id number])Use one needle for each injection daily. (current Injections are 4 times daily). Refills: 2. ?? Durable Medical Equipment for Prescription (Glucerna)Twice a day. Refills: 3. ?? Durable Medical Equipment for Prescription (Onetouch Ultra Blue Test Strips)use as directed four times daily. Refills: 12. ?? ferrous gluconate (ferrous gluconate 324 mg (38 mg elemental iron) oral tablet)1 tab Oral (given bymouth) every day. ?? folic acid (folic acid 1 mg oral tablet)1 tab Oral (given by mouth) every day. Refills: 0. ?? glucagon (Glucagon Emergency Kit for Low Blood Sugar 1 mg injection) ?? insulin aspart (NovoLOG FlexPen 100 units/mL injectable solution)5 Units Subcutaneous (under the skin) 3 times a day before meals. Refills: 0. ?? insulin detemir (Levemir FlexTouch 100 units/mL subcutaneous solution)15 Units Subcutaneous (under the skin) every night at bedtime. ?? lidocaine topical (lidocaine 5% topical film)1 patch(es) Topical (on the skin) every day. remove patches after 12 hours. Refills: 0. ?? loperamide (loperamide 2 mg oral capsule)1 Capsules Oral (given by mouth) every 4 hours as needed as needed for loose stool. Refills: 2. ?? LORazepam (Ativan 0.5 mg oral tablet)0.5 tab Oral (given by mouth) every night at bedtime. Refills:0. ?? magnesium oxide (magnesium oxide 400 mg (241.3 mg elemental magnesium) oral tablet)1 tab Oral (given by mouth) 2 times a day. Refills: 3. ?? melatonin (Melatonin 3 mg oral tablet)1 tab Oral (given by mouth) every night at bedtime. Refills: 0. ?? memantine (memantine 5 mg oral tablet)1 [...] Other Prescription (BD UF MINI PEN NEEDLE [id number])USE DIRECTED FOUR TIMES A DAY NEEDED. Refills: [...] Oral (given by mouth) every day. ?? selenium sulfide topical (selenium sulfide 2.5% topical lotion)1 Application Topical (on the skin) every 48 hours. USE SHAMPOO EVERY OTHER DAY WHEN SHE SHAMPOOS. ?? venlafaxine (venlafaxine 150 mg oral capsule, extended release)1 Capsules Oral (given by mouth) every day. Refills: 0. Problem List/Past Medical History Ongoing Anemia Anxiety [...] (06/07/1973)???Total abdominal hysterectomy (06/07/1971) Medication Administration Given Dextrose 5% with 0.45% NaCl and KCl 20 mEq/L, 1000 mL, IV. For: DKA (diabetic ketoacidosis) NS 100 mL + insulin regular IV additive 100 units, IV. For: DKA (diabetic ketoacidosis) Sodium Chloride 0.9%, 1000 mL, IV Sodium Chloride 0.9%, 1000 mL, IV 0.9% NaCl bolus, 1 L, IV Bolus [...] Unknown. Cause of : Diagnostic Results ECG Sinus rhythm with a rate of 92,??normal axis, KS is appropriate at 159 ms, QRS is not widened at 103 ms, QTc is prolonged at 453 ms.?? No acute appearing ST/T- segment changes or evidence of acute regional ischemia or dysrhythmia. Lab Results Blood Gases?? LATEST RESULTS?? HISTORICAL RESULTS?? pH Romain?? 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 7.27 ??Low?? 06/09/22?? 7.39?? pCO2 Romain?? 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 44?? 06/09/22?? 44?? pO2 Romain?? 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 27?? 06/09/22?? 32?? O2 Sat Romain?? 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 49?? 06/09/22?? 62?? CO2 Total Venous?? 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 22?? 06/09/22?? 28?? Base Excess Venous?? 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 -6.5?? 06/09/22?? 1.4? CBC and Differential?? LATEST RESULTS?? HISTORICAL RESULTS?? WBC?? 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 6.0?? 07/01/22?? 7.3?? RBC?? 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 4.8?? 07/01/22?? 3.8 ??Low?? Hgb?? 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 14.7?? 07/01/22?? 12.0?? Hct?? 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 44.9?? 07/01/22?? 37.5?? MCV?? 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 92.6?? 07/01/22?? 97.9 ??High?? MCH?? 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 30.3?? 07/01/22?? 31.3?? MCHC?? 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 32.7?? 07/01/22?? 32.0?? RDW-CV?? 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 13.4?? 07/01/22?? 13.8?? Platelets?? 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 154?? 07/01/22?? 143?? Neutro Auto?? 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 61.4?? 07/01/22?? 72.4?? Lymph Auto?? 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 29.2?? 07/01/22?? 15.2 ??Low?? Beadle Auto?? 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 8.7?? 07/01/22?? 7.0?? Eos, Auto?? 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 0.3 ??Low?? 07/01/22?? 4.0?? Basophil Auto?? 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 0.2?? 07/01/22?? 1.1 ??High?? Imm Gran Auto?? 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 0.2?? 07/01/22?? 0.3?? Neutro Absolute?? 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 3.7?? 07/01/22?? 5.3? Routine Chemistry?? LATEST RESULTS?? HISTORICAL RESULTS?? Sodium Level?? 08/31/22 16:15?? 142?? 07/01/22?? 140?? Potassium Level?? 08/31/22 16:15?? 3.5?? 07/01/22?? 5.0?? Chloride Level?? 08/31/22 16:15?? 104?? 07/01/22?? 101?? CO2?? 08/31/22 16:15?? 22?? 07/01/22?? 30?? Alk Phos?? 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 119?? 07/01/22?? 74?? AST?? 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 34?? 07/01/22?? 13 ??Low?? ALT?? 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 18?? 07/01/22?? 7 ??Low?? BUN?? 08/31/22 16:15?? 66 ??High?? 07/01/22?? 61 ??High?? Glucose Level?? 08/31/22 16:15?? 211 ??High?? 07/01/22?? 251 ??High?? Creatinine Level?? 08/31/22 16:15?? 3.29 ??High?? 07/01/22?? 2.94 ??High?? eGFR AA?? 08/31/22 16:15?? 14 ??Low?? 07/01/22?? 16 ??Low?? eGFR Non-AA?? 08/31/22 16:15?? 14 ??Low?? 07/01/22?? 16 ??Low?? Calcium Level?? 08/31/22 16:15?? 10.8 ??High?? 07/01/22?? 12.6 ??Critical?? Protein Total?? 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 8.3 ??High?? 07/01/22?? 7.6?? Albumin Level?? 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 3.5?? 07/01/22?? 3.4?? Bilirubin Total?? 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 0.6?? 07/01/22?? 0.5?? Beta-Hydroxybutyrate?? 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 4.4 ??High? Lactic Acid Lvl?? 08/31/22 16:15?? 4.4 ??Critical?? 06/14/22?? 1.8?? Magnesium Level?? 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 1.7 ??Low?? 06/09/22?? 1.8?? Glucose POC?? 08/31/22 18:18?? 228 ??High?? 05/15/22?? 244 ??High? Lipids?? LATEST RESULTS?? HISTORICAL RESULTS?? Triglycerides?? 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 241 ??High?? 05/13/22?? 109?? Cholesterol Total?? 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 273 ??High?? 05/13/22?? 224 ??High?? HDL?? 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 49?? 05/13/22?? 57?? LDL?? 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 176 ??High?? 05/13/22?? 145 ??High? Cardiac Isoenzymes?? LATEST RESULTS?? HISTORICAL RESULTS?? CK?? 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 69? Troponin-I?? 08/31/22 16:15?? 500.0 ??Critical?? 06/14/22?? 21.5? UA Macroscopic?? LATEST RESULTS?? HISTORICAL RESULTS?? UA Color?? 08/31/22 13:18?? Yellow?? 06/15/22?? Yellow?? UA Appear?? 08/31/22 13:18?? Cloudy Abnormal?? 06/15/22?? Clear?? UA Glucose?? 08/31/22 13:18?? 3+ Abnormal?? 06/15/22?? Trace Abnormal?? UA Bili?? 08/31/22 13:18?? 1+ Abnormal?? 06/15/22?? Negative?? UA Ketones?? 08/31/22 13:18?? 1+ Abnormal?? 06/15/22?? Negative?? UA Spec Grav?? 08/31/22 13:18?? >=1.030?? 06/15/22?? 1.020?? UA Blood?? 08/31/22 13:18?? Trace Abnormal?? 06/15/22?? Negative?? UA pH?? 08/31/22 13:18?? 5.5?? 06/15/22?? 7.0?? UA Protein?? 08/31/22 13:18?? 2+ Abnormal?? 06/15/22?? 1+ Abnormal?? UA Urobilinogen?? 08/31/22 13:18?? Normal?? 06/15/22?? Normal?? UA Nitrite?? 08/31/22 13:18?? Negative?? 06/15/22?? Negative?? UA Leuk Est?? 08/31/22 13:18?? Negative?? 06/15/22?? Negative?? UA Culture Ind?.?? 08/31/22 13:18?? Indicated?? 06/15/22?? Not Applicable? UA Microscopic?? LATEST RESULTS?? HISTORICAL RESULTS?? UA WBC?? 08/31/22 13:18?? 0-3?? 06/15/22?? 0-3?? UA RBC?? 08/31/22 13:18?? 0-2?? 06/15/22?? 0-2?? UA Squam Epithelial?? 08/31/22 13:18?? Few Abnormal?? 06/15/22?? Few Abnormal?? UA Yeast?? 08/31/22 13:18?? Few Abnormal?? 06/15/22?? Few Abnormal?? UA Mucous?? 08/31/22 13:18?? None Seen?? 06/15/22?? None Seen?? UA Bacteria?? 08/31/22 13:18?? Many Abnormal?? 06/15/22?? None Seen? Infectious Disease?? LATEST RESULTS?? HISTORICAL RESULTS?? 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 Unknown?? 05/13/22?? Unknown?? Symptomatic as defined by CDC??? 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 Unknown?? 05/13/22?? Unknown?? Hospitalized due to COVID-19??? 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 Unknown?? 05/13/22?? Unknown?? In ICU??? 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 Unknown?? 05/13/22?? Unknown?? Group care resident??? 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 Unknown?? 05/13/22?? Unknown?? status??? 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 Unknown?? 05/13/22?? Unknown?? SARS-CoV-2(Covid19)PCR([facility]Xpert [facility]OV[facility])?? 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 Positive Abnormal?? 05/13/22?? Negative?? Flu A ([facility]OV[facility])?? 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 Negative?? 05/13/22?? Negative?? Flu B ([facility]OV[facility])?? 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 Negative?? 05/13/22?? Negative?? RSV ([facility]OV[facility])?? 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 Negative?? 05/13/22?? Negative? Point of Care?? LATEST RESULTS?? HISTORICAL RESULTS?? Whole Blood Glucose - Manual Entry?? 08/31/22 18:24?? 228 mg/dL ??High?? 05/13/22?? 275 mmol/L ??High? Electronically Signed on 08/31/22 06:50 PM Sang Dutton MD Physical therapy Progress note * Jennifer Diaz: PERFORM Event Display: Physical Therapy Progress Note Authored Date: [id number] Patient ID and date of checked: Confirmed *Current Level of Care: Observation *Admitting Diagnosis: Hypomagnesium, COVID 19+ *Therapy Diagnosis: Decreased functional mobility, generalized weakness *Subjective: ??I feel like I'm ready to go home. Pain: ?no c/o Bed Mobility: Activity Assistance Comments Rolling ??Ind Scooting/Repositioning ??Ind Supine to Sit ??Ind Sit to Supine Ind Transfers: Activity Assistive Device Assistance Comments Sit to Stand RW ??S ??requiring multiple attempts from low chair Stand to Sit ??RW ??S Bed to Chair ??RW ??S Chair to Bed Shower Transfer Toilet Transfer Ambulation: Assistance Assistive Device Distance Comments ??S ??RW ??40ft ??staying within room due to Covid precautions. Stairs: n/a Assistance Assistive Device # Steps Comments Wheelchair Mobility:n/a Assistance Distance Comments *Procedure Documentation: CPT 00736: Therapeutic Activities - Direct 1:1 :?15?? minutes Therapeutic activities to improve functional performance of ADL specific activities such as: Treatment techniques utilized today included: bed mobility and transfers CPT 89181: Gait Training:?15 ?? minutes Gait and/or stair training to promote improved sequencing, safety and movement quality for functional mobility. Treatment techniques utilized today included: amb within room, maneuvering around furniture and in small spaces. She used walker safely. She reports she has no stairs at the back entrance to her appt, which is accessible. *Patient Education: to plan ahead, looking for elevated chairs with arm rests before sitting. *Physical Therapy Assessment: ??Maria Ines appears to be feeling well, she is anxious to return home toher cat. She talks about moving to assisted living or a different accessible apt in the near future. Mobility within her room is good with RW. Expect DC home with Home PT. Goal Updates: making good gains *PT Plan of Care: DC home *Total Time: 30 *Time In: 8:45am *Time Out:9:15am Electronically Signed on 09/03/22 01:26 PM Jennifer Diaz * Jennifer Diaz: PERFORM Event Display: Physical Therapy Progress Note Authored Date: [id number] Patient ID and date of checked: Confirmed *Current Level of Care: Observation *Admitting Diagnosis: Hypomagnesium, COVID 19+ *Therapy Diagnosis: Decreased functional mobility; generalized weakness *Subjective: ??I'm still tired out from that last girl. Pt is referring to OT who amb with her earlier this morning. Pain: ?no c/o Bed Mobility: n/a Activity Assistance Comments Rolling Scooting/Repositioning Supine to Sit Sit to Supine Transfers: n/a Activity Assistive Device Assistance Comments Sit to Stand Stand to Sit Bed to Chair Chair to Bed Shower Transfer Toilet Transfer Ambulation:n/a Assistance Assistive Device Distance Comments Stairs: n/a Assistance Assistive Device # Steps Comments Wheelchair Mobility: n/a Assistance Distance Comments Balance:n/a ?Static Sitting: ?Dynamic Sitting: ?Static Standing: ?Dynamic Standing: *Procedure Documentation: CPT 59589: Therapeutic Exercise:?15? minutes Therapeutic exercise to promote improved joint stability, strength, endurance, and range of motion for functional ADL???s such as: Specific education/training provided: supine AROM BLE ex's including heel slides, SAQ, SLR, abd, and bridging *Patient Education: re-enforced importance of continued mobility *Physical Therapy Assessment: ??Due to pt being Covid+ she was seen last, therefore this [employer] is unable to return at a later time to try amb. The ex's appeared to be easy for her with no c/o pain. Goal Updates: Cont *PT Plan of Care: Cont *Total Time: 15min *Time In: 11:35am *Time Out:11:50am Electronically Signed on 09/02/22 12:03 PM Jennifer Diaz * César Oconnor PT, DPT: PERFORM Event Display: Physical Therapy Progress Note Authored Date: [id number] Patient ID and date of checked: Confirmed *Current Level of Care: Observation *Admitting Diagnosis: Hypomagnesium, COVID 19+ *Therapy Diagnosis: Decreased functional mobility; generalized weakness Pertinent Medical History: Maria Ines is a 77 year old female who arrived to ED via EMS for AMS, urinary incontinence, weakness, and recent fall 1 week ago. Patient placed on observation 08/31/22. CT was not significant for any acute findings. Patient is well known to this facility. Other medical history includes but not limited to anemia, CKD stage 4, DJD shoulders, depression, essential tremor, HLD,HTN, GERD, IBS, PTSD, DM2. *Subjective: Pt greeted in supine and she is willing to participate with PT and OT co- evaluation. Pt reports having a headache and feeling dizzy throughout. Pt is pleasant and reports she hopes to get stronger and improve how she feels overall. Pt receptive to suggestion of short term rehab at this time. Hand Dominance: Right *Barriers to Learning: None Communication Cultural Education level Hearing Language Vision Physical ??x Cognitive Motivational Emotional Acute medical condition Precautions: ??x Standard precautions MRSA/VRE Contact precautions Droplet precautions Airborne precautions Covid precautions Total hip replacement Total knee replacement Total shoulder replacement ??x Fall risk *Previous Level of Function: Maria Ines lives at home alone, with assistance from caregivers for 5 hours daily Wednesday-Wednesday. Pt uses RW at baseline. Her caregivers assist with meal preparation and cleaning tasks. 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 Prior Home Setup: ?Living Situation/Level of Supervision: lives alone/ limited supervision ?Living Environment: apartment with 2 entrances, patient uses back entrance which does not require any stairs to enter. ?Home Equipment: RW *Current Level of Function: Below baseline; needing CGA for all transfers and ambulation due to instability, dizziness and weakness. Pain: Headache, numeric rating not provided. Vision/Hearing: Patient reports corrective lenses are at home, hearing is intact. Cognition: ? Alertness level: alert ? Attention: impaired, supplemental cueing required ? Communication: expresses needs verbally ? Follows commands: follows 75% of single step instruction ? Insight into deficits: impaired ? Memory?short term: impaired ? Memory?mcfp: grossly intact, not formally assessed ? Orientation: O x3 (patient reports accurate month and year but not date) ? Safety awareness: impaired Passive/Active Range of Motion: WFL Manual Muscle Testin/5 globally in LE Bed Mobility: Activity Assistance Comments Rolling Scooting/Repositioning Supine to Sit ??I ??Increased time needed Sit to Supine ??I Transfers: Activity Assistive Device Assistance Comments Sit to Stand ??RW ??CGA ??Cues for sequencing Stand to Sit ??RW ??CGA ?? Bed to Chair Chair to Bed Shower Transfer Toilet Transfer BP 146/86 sitting EOB after laying Ambulation: Assistance Assistive Device Distance Comments CGA ??RW ??8' Moderate instability; poor foot clearance; dizziness limits tolerance. Pt needs cues for proper RW management. Stairs: not appropriate Assistance Assistive Device # Steps Comments Wheelchair Mobility: Assistance Distance Comments Balance: ?Static Sitting: fair+ ?Dynamic Sitting: fair ?Static Standing: fair ?Dynamic Standing: poor Posture: fair with moderate thoracic kyphosis *Standardized Testing: Standardized Test: [facility] Functional Impairment Rating ? Score: 9 ? Comments: 45% functional mobility impairment *Patient Education: ??Concerns with mobility and recommendation of home health PT vs rehab pending mobility improvements in the next few days. *Physical Therapy Assessment: Maria Ines is a 77 year old who is being seen at the hospital secondary to recent fall. She is below baseline for functional mobility and is deconditioned overall. At her current mobility level she wouldbenefit from short term rehab stay to return to PLOF. Pt may be able to return to baseline within 3-5 days if she improves consistently and works with inpt therapists. Pt will be seen by physical therapy throughout her stay in the hospital for best mobility prognosis. Pt is highly motivated and is a good candidate for PT. *Rehab Potential: Good?_ *Short Term Goals?time frame: Defer to LTGs *Assisted Goals?time frame: 5 days Pt will be I with RW in her room. Pt will ambulate >250 ft with RW and S. Pt will be safe and I with all transfers and bed mobility. *Patient Goals: To get stronger PT Plan of Care (as per below) *Treatment Duration: until goals are met *Treatment Frequency: M-Sat *Treatment Intensity: 30 min *Planned Treatment Interventions: ??x CPT 41262: Therapeutic Exercise ??x CPT 59732: Therapeutic Activity ??x CPT 26074: Gait Training ??x CPT 25725: Neuromuscular Re-education ??x CPT 13696: Self-Care/Home Management CPT 41238: Manual Therapy CPT 07270: Ultrasound CPT G0283: Electrical Stimulation CPT 66040: Initial Orthotic Fit/Train CPT 29458: Initial Prosthetic Train CPT 01731:??Subsequent??Orthotic??Check CPT 66429:??Wheelchair??Management??Training *Discharge Plan:?Upon meeting therapy goals, max therapy benefit, or discharge from facility. Discharge Recommendations: ?? Home equipment needs: none ?Post discharge Rehab needs: _?Rehab vs home health PT ?? Disposition: _ ?Supervision needs: 24 hour supervision ?Discussed plan of care with: PT, OT, MD *Evaluation Procedure Documentation: CPT 13427: Low Complexity PT Evaluation:?27 minutes Physical Therapy Evaluation performed. History involves 1-2 personal factors and/or comorbidities. Examination of body system(s) includes 1-2 elements. Clinical presentation is stable. Clinical decision making is low. *Total Time: 27 min *Time In: 918 *Time Out: 945 Electronically Signed on 09/01/22 02:34 PM César Oconnor PT, DPT Nutrition and dietetics Progress note * Zoey Montes RD: PERFORM, MODIFY Event Display: Nutrition Note Authored Date: Nutrition Recommendations Patient admitted with DKA following several days of missed medication due to weakness and inabilityto get out of bed related to covid infection. Diet was changed to diabetic this morning. labs improving. mentation improved today is now alert and oriented. Nutrition Risk Level moderate Assessment and Monitoring 1-2x/week and as needed Nutrition Diagnosis altered nutrition related labs related to DKA after not taking medications for several days Nutrition Goals diabetes management Nutrition Interventions continue diabetic diet continue medications as prescribed by MD ?? Anthropometrics/Estimated Needs Aincyt37 kg(Recorded: 09/02/2022 07:29 EDT) Usual Zailgy33.6 kg(Recorded: 09/01/2022 14:56 EDT) Dsvkka321.000 cm(Recorded: 09/01/2022 14:46 EDT) Body Mass Index23.460 kg/m2(Recorded: 09/01/2022 14:46 EDT) Reason for Visit AMS, COVID +, Weakness, DEL . Problem List/Past Medical History Ongoing Anemia Anxiety [...] Cause of : Diet Orders Diet Order, 09/02/22 8:04:00 EDT, Diabetic Start Meal: Now, Low (1,200-1,600 patrick) 60g CHO Allergies azithromycin??(Skin rash) codeine??(Rapid heart beat) Nutrition Lab Results Test Name Test Result Date/Time WBC 4.8 x10^3/mcL 09/02/2022 07:03 EDT Hgb 11.3 g/dL 09/02/2022 07:03 EDT Hct 34.4 % 09/02/2022 07:03 EDT MCV 91.7 09/02/2022 07:03 EDT Platelets 103 x10^3/mcL 09/02/2022 07:03 EDT Sodium Level 140 mmol/L 09/02/2022 07:03 EDT Potassium Level 3.8 mmol/L 09/02/2022 07:03 EDT Chloride Level 106 mmol/L 09/02/2022 07:03 EDT CO2 24 mmol/L 09/02/2022 07:03 EDT Alk Phos 89 unit/L 09/01/2022 08:40 EDT ALT 13 unit/L 09/01/2022 08:40 EDT BUN 39 mg/dL 09/02/2022 07:03 EDT Glucose Level 173 mg/dL 09/02/2022 07:03 EDT Creatinine Level 2.31 mg/dL 09/02/2022 07:03 EDT Phosphorus Level 2.1 mg/dL 09/01/2022 02:00 EDT Albumin Level 2.7 g/dL 09/01/2022 08:40 EDT Bilirubin Total 0.4 mg/dL 09/01/2022 08:40 EDT Magnesium Level 1.6 mg/dL 09/01/2022 08:40 EDT Medications Inpatient acetaminophen, 650 mg= 2 tab, Oral, every 6 hr, PRN amLODIPine, 5 mg= 1 tab, Oral, Daily aspirin, 81 mg= 1 tab, Oral, Daily atorvastatin, 40 mg= 1 tab, Oral, Daily cefTRIAXone, 1 g= 50 mL, IV Piggyback, every 24 hr doxycycline monohydrate, 100 mg= 1 cap, Oral, every 12 hr ferrous gluconate, 324 mg= 1 tab, Oral, Daily folic acid, 1 mg= 1 tab, Oral, Daily heparin, 5000 units= 1 mL, Subcutaneous, every 12 hr insulin lispro (HumaLog) correction- moderate, Moderate Scale, Subcutaneous, AC & bedtime lidocaine 1% injectable solution, 5 mg= 0.5 mL, Intradermal, As Directed, PRN magnesium oxide, 400 mg= 1 tab, Oral, BID memantine, 5 mg= 0.5 tab, Oral, BID Metoprolol Succinate ER 25 mg oral tablet, extended release, 25 mg= 1 tab, Oral, Daily Normal Saline Flush, 10 mL, IV Push, every 12 hr (nena) ondansetron, 4 mg= 2 mL, IV Push, every 6 hr, PRN oxybutynin extended release, 5 mg= 1 tab, Oral, Daily pantoprazole, 40 mg= 1 tab, Oral, Daily Sodium Chloride 0.9% 1,000 mL, 1000 mL, IV venlafaxine, 150 mg= 2 cap, Oral, Daily Home amLODIPine 5 mg oral tablet, 5 mg= 1 tab, Oral, Daily, 5 refills aspirin 81 mg oral tablet, chewable, 81 mg= 1 tab, Oral, Daily Ativan 0.5 mg oral tablet, 0.25 mg= 0.5 tab, Oral, every night at bedtime atorvastatin 40 mg oral tablet, 1 tab, Oral, Daily BD Pen Needle Mini U/F 31G X 5 MM MISC, See Instructions BD UF MINI PEN NEEDLE [id number], See Instructions BD UF Pen Needle Mini [id number], See instructions, 2 refills ferrous gluconate 324 mg (38 mg elemental iron) oral tablet, 324 mg= 1 tab, Oral, Daily ferrous gluconate 324 mg (38 mg elemental iron) oral tablet, 324 mg= 1 tab, Oral, Daily folic acid 1 mg oral tablet, 1 mg= 1 tab, Oral, Daily Glucerna, See instructions, 3 refills Levemir FlexTouch 100 units/mL subcutaneous solution, 15 units, Subcutaneous, every night at bedtime lidocaine 5% topical film, 1 patches, Topical, Daily loperamide 2 mg oral capsule, 2 mg= 1 cap, Oral, every 4 hr, PRN, 2 refills magnesium oxide 400 mg (241.3 mg elemental magnesium) oral tablet, 400 mg= 1 tab, Oral, BID, 3 refills Melatonin 3 mg oral tablet, 3 mg= 1 tab, Oral, every night at bedtime memantine 5 mg oral tablet, 5 mg= 1 tab, Oral, BID Metoprolol Succinate ER 25 mg oral tablet, extended release, 25 mg= 1 tab, Oral, Daily, 3 refills mupirocin 2% topical ointment, See Instructions nitroglycerin 0.4 mg sublingual tablet, 0.4 mg= 1 tab, SL, every 5 min NovoLOG FlexPen 100 units/mL injectable solution, 5 units, Subcutaneous, TID(AC) Onetouch Ultra Blue Test Strips, See instructions, 12 refills oxybutynin 5 mg oral tablet, 5 mg= 1 tab, Oral, BID, PRN pantoprazole 40 mg oral delayed release tablet, 40 mg= 1 tab, Oral, Daily propranolol 20 mg oral tablet, 3 tab, Oral, BID venlafaxine 150 mg oral capsule, extended release, 150 mg= 1 cap, Oral, Daily, 3 refills Vitamin B2 100 mg oral tablet, 100 mg= 1 tab, Oral, Daily Vitamin C TR 500 mg oral capsule, 1 cap, Oral, Daily Electronically Signed on 09/02/22 10:[address] Progress note * Sandra Melo MD: PERFORM Event Display: Progress Note - Physician Authored Date: [id number] MARIA INES BROOKS :1945 Age:77 years Sex:Female Visit Date:08/31/2022 Primary Care Physician: Jeannine Fernandes MD Subjective The patient is being seen examined as a follow-up for hypertension, hyperlipidemia, type 2 diabetesmellitus, IBS, COVID-19, DEL, type II KS, electrolyte abnormalities, CKD??and recent diabetic ketoacidosis which has now resolved. ??Patient is more alert and oriented today however still??making odd statements at times??and crying at times saying that she misses??her stretcher papo??in the emergency department.?? No active complaints. Review of Systems Patient denies any fevers or chills, chest pain, shortness of breath, abdominal pain, nausea, vomiting, diarrhea, lightheadedness or dizziness, cough, headache, blurry vision, rash. Objective Vitals & Measurements T:??37.2?C ??(Temporal Artery)?? TMIN:??36.4?C ??(Temporal Artery)?? TMAX:??37.2?C ??(Temporal Artery)?? HR:??79??(Peripheral)?? RR:??16?? BP:??138/80?? SpO2:??97%?? HT:??168.000??cm?? WT:??68??kg?? BMI:??23.460?? Pain Score:??0?? O2 Therapy:??Room air?? Physical Exam General:??Alert and disoriented, well nourished,?No??acute distress Eye:??PERRL, EOMI,?Normal??conjunctiva HENT:??Normocephalic,?Normal?hearing, moist oral mucosa,?No??scleral icterus,?No??sinus tenderness Neck:??Supple, non-tender,?No??carotid bruits,?No??JVD,?No??lymphadenopathy Lungs:??Clear to auscultation and percussion,?Non-labored?respiration Heart:?Normal?rate,?Regular??rhythm,?No??murmur,?No??gallop,?N o??edema Abdomen:??Soft, non-tender, non-distended,?Normal?bowel sounds,?No??masses Musculoskeletal:?Normal?range of motion and strength,?No??tenderness,?No??swelling Skin:??Skin is warm, dry and pink,?No??rashes,?No??lesions Neurologic:??Awake, alert and oriented X3, CN II-XII grossly??intact Psychiatric:??Cooperative, appropriate mood with odd and comments??at??times Assessment/Plan 1.??DKA (diabetic ketoacidosis)??E11.10,??DKA (diabetic ketoacidosis)??E11.10 DKA has resolved and transition to subcutaneous insulin as well as??diabetic diet.?? Continue with insulin sliding scale, long-acting insulin glargine, Chemstrips AC plus at bedtime. 2.??COVID-19??U07.1 Acute bronchitis seen on chest x-ray likely due to COVID-19??we will??cover for possible??bacterialcomponent for now with ceftriaxone and doxycycline. 3.??DEL (acute kidney injury)??N17.9 Resolved and returned to baseline renal function. ??Monitor renal function, urinary output and electrolytes. ??Avoid nephrotoxic medications. 4.??Type 2 myocardial infarction??I21.A1 ??Type II myocardial infarction/demand ischemia from??DKA.?? EKG without signs of acute ischemia. ??Troponin were 530 and trending down. ??Echocardiogram??will be obtained. 5.??Hypomagnesemia??E83.42 Needed.?? At baseline. 6.??Chronic kidney disease stage 4??N18.4 7.??Hypertensive disorder??I10 ??Continue home medications. 8.??Gastroesophageal reflux disease??K21.9 ??Continue Protonix. 9.??Depressive disorder??F32.A Orders: cefTRIAXone, 1 g = 50 mL, IV Piggyback, Soln, every 24 hr, Antibiotic Indication Pneumonia- CAP, Administer over: 0.5 hr, First Dose: 09/01/22 16:00:00 EDT, Routine, 100 mL/hr doxycycline monohydrate, 100 mg = 1 cap, Oral, Cap, every 12 hr for 5 days, Antibiotic Indication Pneumonia- CAP, First Dose: 09/01/22 16:00:00 EDT, Stop Date: 09/06/22 15:59:00 EDT, Physician Stop, Routine Diet Order, 09/02/22 8:04:00 EDT, Diabetic Start Meal: Now, Low (1,200-1,600 patrick) 60g CHO PT Additional Treatment Acute., 09/02/22 9:00:00 EDT, PT treatment, ////Sa Electronically Signed on 09/02/22 02:01 PM Sandra Melo MD History and physical note * Sandra Melo MD: PERFORM Event Display: History and Physical Authored Date: [id number] MARIA INES BROOKS :1945 Age:77 years Sex:Female Visit Date:08/31/2022 Primary Care Physician: Jeannine Fernandes MD Chief Complaint VNA called for AMS, A&Ox4 for EMS, reports h/o diabetes, incontinent of urine, weakness, has not gotten out of bed x4 days and has not taken medication since then, lives home alone. Fall at home over a week ago per EMS without LOC. History of Present Illness The patient is a 77-year-old female with past medical history of hypertension, hyperlipidemia, type2 diabetes mellitus, IBS, tremor who presented to the emergency department with a chief complaint of altered mental status.?? Apparently the patient had been confused for approximately 1 day.?? Her usual [facility]NA nurse had been out for the past several days due to COVID and apparently the patient had mostly been sitting in her chair for the past few days.?? Unfortunately patient was unable to provide adequate history due to some component of altered mental status as well as suspected underlying dementia.?? She does report having weakness and inability to stand on her own.?? She otherwise denies any fevers or chills, chest pain, shortness of breath, abdominal pain, vomiting, diarrhea.?? She does report having intermittent nausea.?? In the emergency department patient's vitals revealed some hyper tension but otherwise unremarkable, she is afebrile and other vitals were within normal limits.?? Labs were initially significant for anion gap of 23, bicarbonate of 20, BUN 72, creatinine 3.67, glucose 561, beta hydroxybutyrate of 4.4, magnesium 1.7, troponin of 530.6.?? UA revealed negative nitrites negative leukocyte esterase with some bacteria and 0-3 WBCs.?? SARS [place] 2 testing was positive.?? CT of the brain was negative for any acute intracranial abnormalities.?? Chest x-ray or showed findings of acute bronchitis.?? Review of Systems Unobtainable due to altered mental status and component of dementia Physical Exam Vitals & Measurements T:??37?C ??(Temporal Artery)?? TMIN:??37?C ??(Temporal Artery)?? TMAX:??37.1?C ??(Temporal Artery)?? HR:??77??(Peripheral)?? HR:??77??(Monitored)?? RR:??21?? BP:??155/72?? SpO2:??96%?? HT:??168.000??cm?? WT:??66.200??kg?? BMI:??23.460?? Pain Score:??0?? O2 Therapy:??Room air?? General:??Alert and disoriented, well nourished,?No??acute distress Eye:??PERRL, EOMI,?Normal??conjunctiva HENT:??Normocephalic, clear tympanic membranes,?Normal?hearing, moist oral mucosa,?No??scleral icterus,?No??sinus tenderness Neck:??Supple, non-tender,?No??carotid bruits,?No??JVD,?No??lymphadenopathy Lungs:??Clear to auscultation and percussion,?Non-labored?respiration Heart:?Normal?rate,?Regular??rhythm,?No??murmur,?No??gallop,?N o??edema Abdomen:??Soft, non-tender, non-distended,?Normal?bowel sounds,?No??masses Musculoskeletal:?Normal?range of motion and strength,?No??tenderness,?No??swelling Skin:??Skin is warm, dry and pink,?No??rashes,?No??lesions Neurologic:??Awake, alert and oriented X1, CN II-XII grossly??intact Psychiatric:??Cooperative, appropriate mood and affect Assessment/Plan 1.??DKA (diabetic ketoacidosis)??E11.10,??DKA (diabetic ketoacidosis)??E11.10 77-year-old female who presents with acute metabolic encephalopathy secondary to DKA. ??Bicarbonatewas??20, anion gap of 23.?? Beta hydroxybutyrate was positive. ??The cause of DKA is likely missed doses of medications as well as COVID-19 infection with acute bronchitis.?? We will admit patient under observation as the gap has closed as well as bicarbonate within normal levels.?? Continue insulin glargine and insulin sliding scale. ??Diabetic diet.?? Chemstrips AC plus at bedtime. ??Repeat BMPin the morning. ??PT and OT to evaluate due to significant weakness and deconditioning. 2.??COVID-19??U07.1 COVID-19 with signs of acute bronchitis seen on chest x-ray. ??Continue??ceftriaxone doxycycline due to allergy to azithromycin. 3.??DEL (acute kidney injury)??N17.9 DEL on CKD. ??Given IV fluids and currently at baseline renal function. 4.??Type 2 myocardial infarction??I21.A1 Type II myocardial infarction/demand ischemia from??DKA.?? EKG without signs of acute ischemia. ??Troponin were 530 and trending down. ??Echocardiogram tomorrow. 5.??Hypomagnesemia??E83.42 Repleted. 6.??Chronic kidney disease stage 4??N18.4 At baseline. 7.??Hypertensive disorder??I10 Continue home medications. 8.??Gastroesophageal reflux disease??K21.9 Continue Protonix. 9.??Depressive disorder??F32.A Orders: acetaminophen, 650 mg = 2 tab, Oral, Tab, every 6 hr, PRN pain, First Dose: 09/01/22 7:46:00 EDT, Routine amLODIPine, 5 mg = 1 tab, Oral, Tab, Daily, First Dose: 09/01/22 7:38:00 EDT, STAT aspirin, 81 mg = 1 tab, Oral, Tab-Chew, Daily, First Dose: 09/01/22 7:38:00 EDT, STAT atorvastatin, 40 mg = 1 tab, Oral, Tab, Daily, First Dose: 09/01/22 7:38:00 EDT, STAT ferrous gluconate, 324 mg = 1 tab, Oral, Tab, Daily, First Dose: 09/01/22 7:38:00 EDT, STAT folic acid, 1 mg = 1 tab, Oral, Tab, Daily, First Dose: 09/01/22 7:38:00 EDT, STAT heparin, 5,000 units = 1 mL, Subcutaneous, Soln, every 12 hr, First Dose: 09/01/22 7:46:00 EDT, NOW insulin lispro (HumaLog) correction- moderate, Moderate Scale, Subcutaneous, Soln, AC & bedtime, First Dose: 09/01/22 11:30:00 EDT, Routine lidocaine 1% injectable solution, 5 mg 0.5 mL, Intradermal, Soln, As Directed, PRN other (see comment), First Dose: 09/01/22 7:46:00 EDT, STAT magnesium oxide, 400 mg = 1 tab, Oral, Tab, BID, First Dose: 09/01/22 7:39:00 EDT, STAT memantine, 5 mg = 0.5 tab, Oral, Tab, BID, First Dose: 09/01/22 7:39:00 EDT, STAT Metoprolol Succinate ER 25 mg oral tablet, extended release, 25 mg = 1 tab, Oral, Tab-ER, Daily, First Dose: 09/01/22 7:39:00 EDT, STAT ondansetron, 4 mg = 2 mL, IV Push, Soln, every 6 hr, PRN nausea/vomiting, First Dose: 09/01/22 7:46:00 EDT, STAT oxybutynin extended release, 5 mg = 1 tab, Oral, Tab-ER, Daily, First Dose: 09/01/22 7:39:00 EDT, STAT pantoprazole, 40 mg = 1 EA, IV Push, Powder-Inj, Daily, First Dose: 09/01/22 7:46:00 EDT, STAT potassium chloride, 40 mEq = 2 tab, Oral, Tab-ER, Once, First Dose: 09/01/22 15:00:00 EDT, Stop Date: 09/01/22 15:00:00 EDT, Physician Stop, Routine Normal Saline Flush, 10 mL, IV Push, Soln, every 12 hr (nena), First Dose: 09/01/22 7:46:00 EDT, STAT Sodium Chloride 0.9% 1,000 mL, Total Volume (mL): 1,000, 1,000 mL, Soln-IV, IV, 30 mL/hr, Start Date: 09/01/22 7:46:00 EDT, 36.2 kg, Populate Charting Weight From Order, 1.27, m2 venlafaxine, 150 mg = 2 cap, Oral, Cap-ER, Daily, First Dose: 09/01/22 7:39:00 EDT, STAT Ambulate as Tolerated, 09/01/22 7:46:00 EDT, PRN Basic Metabolic Panel, Blood, Routine, 09/02/22 6:00:00 EDT, Once, Lab Collect Basic Metabolic Panel, Blood, Stat, 09/01/22 14:34:00 EDT, Once, Lab Collect Cardiac Monitoring, 09/01/22 7:46:00 EDT, Telemetry CBC w/ Diff, Blood, Routine, 09/02/22 6:00:00 EDT, Once, Lab Collect CBC w/o Diff, Blood, Routine, 09/01/22 14:34:00 EDT, Once, Lab Collect Diet Order, 09/01/22 7:46:00 EDT, Regular Echocardiogram Complete, 09/01/22 7:51:00 EDT, Myocardial Infarction, Stop date 09/01/22 7:51:00 EDT OT Additional Treatment Acute., 09/02/22 9:00:00 EDT, ot treatment, Wed//// PSO Place in Observation, Observation, Observation, Sandra Melo MD, 09/01/22 7:37:00 EDT, 09/01/22 7:37:00 EDT, 09/01/22 7:37:00 EDT, Less than 96 hours PT Additional Treatment Acute., 09/02/22 9:00:00 EDT, PT treatment, Wed////Fr/Sa Resuscitation Status, 09/01/22 7:46:00 EDT, Full Code Sequential Compression Devices (SCD's), 09/01/22 7:46:00 EDT, Constant Order, Intermittent pneumatic compression Vital Signs, 09/01/22 7:46:00 EDT, Constant order, every 4 hrs Weight, 09/01/22 7:46:00 EDT, PRN, Admission and Discharge Problem List/Past Medical History Ongoing Anemia Anxiety [...] (06/07/1973)???Total abdominal hysterectomy (06/07/1971) Medications Inpatient acetaminophen, 650 mg= 2 tab, Oral, every 6 hr, PRN amLODIPine, 5 mg= 1 tab, Oral, Daily aspirin, 81 mg= 1 tab, Oral, Daily atorvastatin, 40 mg= 1 tab, Oral, Daily ferrous gluconate, 324 mg= 1 tab, Oral, Daily folic acid, 1 mg= 1 tab, Oral, Daily heparin, 5000 units= 1 mL, Subcutaneous, every 12 hr insulin lispro (HumaLog) correction- moderate, Moderate Scale, Subcutaneous, AC & bedtime lidocaine 1% injectable solution, 5 mg= 0.5 mL, Intradermal, As Directed, PRN magnesium oxide, 400 mg= 1 tab, Oral, BID memantine, 5 mg= 0.5 tab, Oral, BID Metoprolol Succinate ER 25 mg oral tablet, extended release, 25 mg= 1 tab, Oral, Daily Normal Saline Flush, 10 mL, IV Push, every 12 hr (nena) ondansetron, 4 mg= 2 mL, IV Push, every 6 hr, PRN oxybutynin extended release, 5 mg= 1 tab, Oral, Daily pantoprazole, 40 mg= 1 EA, IV Push, Daily potassium chloride, 40 mEq= 2 tab, Oral, Once Sodium Chloride 0.9% 1,000 mL, 1000 mL, IV venlafaxine, 150 mg= 2 cap, Oral, Daily Home amLODIPine 5 mg oral tablet, 5 mg= 1 tab, Oral, Daily, 5 refills aspirin 81 mg oral tablet, chewable, 81 mg= 1 tab, Oral, Daily Ativan 0.5 mg oral tablet, 0.25 mg= 0.5 tab, Oral, every night at bedtime atorvastatin 40 mg oral tablet, 1 tab, Oral, Daily BD Pen Needle Mini U/F 31G X 5 MM MISC, See Instructions BD UF MINI PEN NEEDLE [id number], See Instructions BD UF Pen Needle Mini [id number], See instructions, 2 refills ferrous gluconate 324 mg (38 mg elemental iron) oral tablet, 324 mg= 1 tab, Oral, Daily ferrous gluconate 324 mg (38 mg elemental iron) oral tablet, 324 mg= 1 tab, Oral, Daily folic acid 1 mg oral tablet, 1 mg= 1 tab, Oral, Daily Glucerna, See instructions, 3 refills Levemir FlexTouch 100 units/mL subcutaneous solution, 15 units, Subcutaneous, every night at bedtime lidocaine 5% topical film, 1 patches, Topical, Daily loperamide 2 mg oral capsule, 2 mg= 1 cap, Oral, every 4 hr, PRN, 2 refills magnesium oxide 400 mg (241.3 mg elemental magnesium) oral tablet, 400 mg= 1 tab, Oral, BID, 3 refills Melatonin 3 mg oral tablet, 3 mg= 1 tab, Oral, every night at bedtime memantine 5 mg oral tablet, 5 mg= 1 tab, Oral, BID Metoprolol Succinate ER 25 mg oral tablet, extended release, 25 mg= 1 tab, Oral, Daily, 3 refills mupirocin 2% topical ointment, See Instructions nitroglycerin 0.4 mg sublingual tablet, 0.4 mg= 1 tab, SL, every 5 min NovoLOG FlexPen 100 units/mL injectable solution, 5 units, Subcutaneous, TID(AC) Onetouch Ultra Blue Test Strips, See instructions, 12 refills oxybutynin 5 mg oral tablet, 5 mg= 1 tab, Oral, BID, PRN pantoprazole 40 mg oral delayed release tablet, 40 mg= 1 tab, Oral, Daily propranolol 20 mg oral tablet, 3 tab, Oral, BID venlafaxine 150 mg oral capsule, extended release, 150 mg= 1 cap, Oral, Daily, 3 refills Vitamin B2 100 mg oral tablet, 100 [...] Recorded influenza virus vaccine, inactivated 05/28/2009 Recorded pneumococcal 23-polyvalent vaccine 06/07/2008 Recorded influenza virus vaccine, inactivated 04/21/2007 Recorded influenza virus vaccine, inactivated 03/24/2006 Recorded influenza virus vaccine, inactivated 03/26/2005 Recorded tetanus-diphth toxoids (Td) adult/adol 06/07/2004 Recorded pneumococcal 23-polyvalent vaccine 06/07/2002 Recorded varicella virus vaccine Recorded Electronically Signed on 09/01/22 02:54 PM Sandra Melo MD Discharge summary * Sandra Melo MD: PERFORM, MODIFY Event Display: Discharge Summary Authored Date: [id number] MARIA INES BROOKS :1945 Age:77 years Sex:Female Visit Date:08/31/2022 Primary Care Physician: Jeannine Fernandes MD Hospital Course The patient is a 77-year-old female with past medical history of hypertension, hyperlipidemia, type2 diabetes mellitus, IBS who presented to the emergency department on 09/01/2022 with a chief complaint of altered mental status.?? Patient was found to have diabetic ketoacidosis was initiated on insulin drip and her gap closed and was initiated on subcutaneous insulin as well as long- acting and short.?? She was also incidentally found to be COVID-19 positive with signs of acute bronchitis on chest x-ray and was started on antibiotics which she will be completing her doxycycline which will be prescribed upon discharge.?? She was also found to have a type II myocardial infarction with elevatedtroponin of 530 and trended downwards after its peak likely due to demand ischemia from her COVID-19 infection as well as diabetic ketoacidosis.?? An echocardiogram was ordered and revealed an EF of 65 to 70% with normal wall motions, severe LVH with a septum of 2.3 cm with no LVOT obstruction, moderate aortic stenosis, mild to moderate MR, mild to moderate TR, echogenic density seen in the left atrium 2.6 x 2.2 cm consistent with left atrial myxoma.?? DEL resolved and returned to baseline renal function with IV fluids.?? For other chronic medical conditions are all medications were continued.?? At the time of discharge patient was stable to return home with home health to include PT and OT. ?? I certify that this patient is under my care and that I,?_??or a nurse practitioner or physician's administrative assistant working with me, had a face to face encounter with this patient on:?09/03/2022 ?? I certify/re-certify that the above stated patient is homebound and upon completion of the face to face encounter, has a need/continued need for intermittent usp, physical therapy, and/orspeech or occupational therapy services in their home for their current diagnosis as outlined in their initial plan of care. These services will continue to be monitored by myself or another physician who will periodically review and update the plan of care as required. ?? Name of Community Physician who will monitor the patient's home health services:?Jeannine Fernandes MD ?? Skilled services are required for assessment of the patient's??[recurrent, cardiovascular]??systemsdue to: [ADMITTING DX OR DIAGNOSIS??THAT REQUIRE??SKILLED SERVICES]??1:DKA (diabetic ketoacidosis);1:DKA (diabetic ketoacidosis); 2:COVID-19; 3:DEL (acute kidney injury); 4:Type 2 myocardial infarction; 5:Hypomagnesemia; 6:Chronic kidney disease stage 4; 7:Hypertensive disorder; 8:Gastroesophagealreflux disease; 9:Depressive disorder? PHYSICAL THERAPY?[ X] Order?[ ] N/A? [X ]??Therapy needed to maximize the patient's mobility function. ?? OCCUPATIONAL THERAPY?[ ] Order? [ ] N/A? [X ] Therapy needed for evaluation/treatment for patient unable to perform ADL/IADL/self-care. ?? HOMEBOUND The following conditions illustrate the patient's normal inability to the leave home and that leaving home requres a considerable and taxing effort. [ X] Patient is unable to leave the home because of illness or injury,??requiring the aid of supportive devices such as crutches, canes,??wheelchairs and walkers; the use of special transportation; or the assistance of another to leave their??place of residence. Physical Exam Vitals & Measurements T:??36.9?C ??(Temporal Artery)?? TMIN:??36.8?C ??(Temporal Artery)?? TMAX:??37.2?C ??(Temporal Artery)?? HR:??71??(Peripheral)?? RR:??18?? BP:??136/70?? SpO2:??100%?? Pain Score:??0?? O2 Therapy:??Room air?? General:??Alert and oriented, well nourished,?No??acute distress Eye:??PERRL, EOMI,?Normal??conjunctiva HENT:??Normocephalic,?Normal?hearing, moist oral mucosa,?No??scleral icterus,?No??sinus tenderness Neck:??Supple, non-tender,?No??carotid bruits,?No??JVD,?No??lymphadenopathy Lungs:??Clear to auscultation and percussion,?Non-labored?respiration Heart:?Normal?rate,?Regular??rhythm,?No??murmur,?No??gallop,?N o??edema Abdomen:??Soft, non-tender, non-distended,?Normal?bowel sounds,?No??masses Musculoskeletal:?Normal?range of motion and strength,?No??tenderness,?No??swelling Skin:??Skin is warm, dry and pink,?No??rashes,?No??lesions Neurologic:??Awake, alert and oriented X3, CN II-XII grossly??intact Psychiatric:??Cooperative, appropriate mood with odd and comments??at??times Medications Inpatient acetaminophen, 650 mg= 2 tab, Oral, every 6 hr, PRN amLODIPine, 5 mg= 1 tab, Oral, Daily aspirin, 81 mg= 1 tab, Oral, Daily atorvastatin, 40 mg= 1 tab, Oral, Daily cefTRIAXone, 1 g= 50 mL, IV Piggyback, every 24 hr doxycycline monohydrate, 100 mg= 1 cap, Oral, every 12 hr ferrous gluconate, 324 mg= 1 tab, Oral, Daily folic acid, 1 mg= 1 tab, Oral, Daily heparin, 5000 units= 1 mL, Subcutaneous, every 12 hr insulin lispro (HumaLog) correction- moderate, Moderate Scale, Subcutaneous, AC & bedtime lidocaine 1% injectable solution, 5 mg= 0.5 mL, Intradermal, As Directed, PRN magnesium oxide, 400 mg= 1 tab, Oral, BID memantine, 5 mg= 0.5 tab, Oral, BID Metoprolol Succinate ER 25 mg oral tablet, extended release, 25 mg= 1 tab, Oral, Daily Normal Saline Flush, 10 mL, IV Push, every 12 hr (nena) ondansetron, 4 mg= 2 mL, IV Push, every 6 hr, PRN oxybutynin extended release, 5 mg= 1 tab, Oral, Daily pantoprazole, 40 mg= 1 tab, Oral, Daily Sodium Chloride 0.9% 1,000 mL, 1000 mL, IV venlafaxine, 150 mg= 2 cap, Oral, Daily Home amLODIPine 5 mg oral tablet, 5 mg= 1 tab, Oral, Daily, 5 refills aspirin 81 mg oral tablet, chewable, 81 mg= 1 tab, Oral, Daily atorvastatin 40 mg oral tablet, 1 tab, Oral, Daily BD Pen Needle Mini U/F 31G X 5 MM MISC, See Instructions BD UF MINI PEN NEEDLE [id number], See Instructions BD UF Pen Needle Mini [id number], See instructions, 2 refills doxycycline monohydrate 100 mg oral capsule, 100 mg= 1 cap, Oral, every 12 hr ferrous gluconate 324 mg (38 mg elemental iron) oral tablet, 324 mg= 1 tab, Oral, Daily ferrous gluconate 324 mg (38 mg elemental iron) oral tablet, 324 mg= 1 tab, Oral, Daily folic acid 1 mg oral tablet, 1 mg= 1 tab, Oral, Daily Glucerna, See instructions, 3 refills Levemir FlexTouch 100 units/mL subcutaneous solution, 15 units, Subcutaneous, every night at bedtime magnesium oxide 400 mg (241.3 mg elemental magnesium) oral tablet, 400 mg= 1 tab, Oral, BID, 3 refills Melatonin 3 mg oral tablet, 3 mg= 1 tab, Oral, every night at bedtime memantine 5 mg oral tablet, 5 mg= 1 tab, Oral, BID Metoprolol Succinate ER 25 mg oral tablet, extended release, 25 mg= 1 tab, Oral, Daily, 3 refills mupirocin 2% topical ointment, See Instructions nitroglycerin 0.4 mg sublingual tablet, 0.4 mg= 1 tab, SL, every 5 min NovoLOG FlexPen 100 units/mL injectable solution, 5 units, Subcutaneous, TID(AC) Onetouch Ultra Blue Test Strips, See instructions, 12 refills oxybutynin 5 mg oral tablet, 5 mg= 1 tab, Oral, BID, PRN pantoprazole 40 mg oral delayed release tablet, 40 mg= 1 tab, Oral, Daily propranolol 20 mg oral tablet, 3 tab, Oral, BID venlafaxine 150 mg oral capsule, extended release, 150 mg= 1 cap, Oral, Daily, 3 refills Vitamin B2 100 mg oral tablet, 100 [...] Never tobacco user Tobacco Use:. Discharge Plan Discharge planning greater than 30 minutes. 1.??DKA (diabetic ketoacidosis)??E11.10,??DKA (diabetic ketoacidosis)??E11.10 The patient is a 77-year-old female with past medical history of hypertension, hyperlipidemia, type2 diabetes mellitus, IBS who presented to the emergency department on 09/01/2022 with a chief complaint of altered mental status.?? Patient was found to have diabetic ketoacidosis was initiated on insulin drip and her gap closed and was initiated on subcutaneous insulin as well as long- acting and short.?? She was also incidentally found to be COVID-19 positive with signs of acute bronchitis on chest x-ray and was started on antibiotics which she will be completing her doxycycline which will be prescribed upon discharge.?? She was also found to have a type II myocardial infarction with elevatedtroponin of 530 and trended downwards after its peak likely due to demand ischemia from her COVID-19 infection as well as diabetic ketoacidosis.?? An echocardiogram was ordered and revealed an EF of 65 to 70% with normal wall motions, severe LVH with a septum of 2.3 cm with no LVOT obstruction, moderate aortic stenosis, mild to moderate MR, mild to moderate TR, echogenic density seen in the left atrium 2.6 x 2.2 cm consistent with left atrial myxoma.?? DEL resolved and returned to baseline renal function with IV fluids.?? For other chronic medical conditions are all medications were continued.?? At the time of discharge patient was stable to return home with home health to include PT and OT. 2.??COVID-19??U07.1 3.??DEL (acute kidney injury)??N17.9 4.??Type 2 myocardial infarction??I21.A1 5.??Hypomagnesemia??E83.42 6.??Chronic kidney disease stage 4??N18.4 7.??Hypertensive disorder??I10 8.??Gastroesophageal reflux disease??K21.9 9.??Depressive disorder??F32.A Orders: doxycycline monohydrate 100 mg oral capsule, 100 mg = 1 cap, Oral, every 12 hr, # 6 cap, 0 Refill(s), Pharmacy: [facility] [place], 168, cm, 09/01/22 14:46:00 EDT, Height/Length Dosing, 66.2, kg, 09/01/22 14:46:00 EDT, Weight Dosing Discharge Activity Restrictions, As Instructed by Physical Therapy Discharge Diet Instruction, Regular home diet Discharge Patient, 09/03/22 11:33:00 EDT, Home with Home Health, Home with [facility] (PT and OT) All Diagnoses This Visit DKA (diabetic ketoacidosis) DKA (diabetic ketoacidosis) COVID-19 DEL (acute kidney injury) Type 2 myocardial infarction Hypomagnesemia Chronic kidney disease stage 4 Hypertensive disorder Gastroesophageal reflux disease Depressive disorder Patient Education Diabetic Ketoacidosis Follow Up With When Contact Information Jeannine Fernandes MD 09/21/2022 01:40 [place] [address]- Additional Instructions: HOSPITAL FOLLOW UP Medication Reconciliation New Prescription doxycycline (doxycycline monohydrate 100 mg oral capsule)1 Capsules Oral (given by mouth) every 12 hours for 3 Days. Refills: 0. ?? Changed ferrous gluconate (ferrous gluconate 324 mg (38 mg elemental iron) oral tablet)1 tab Oral (given bymouth) every day. Refills: 0. ?? ferrous gluconate (ferrous gluconate 324 mg (38 mg elemental iron) oral tablet)1 tab Oral (given bymouth) every day. ?? folic acid (folic acid 1 mg oral tablet)1 tab Oral (given by mouth) every day. Refills: 0. ?? venlafaxine (venlafaxine 150 mg oral capsule, extended release)1 Capsules Oral (given by mouth) every day. Refills: 3. ?? Unchanged amLODIPine (amLODIPine 5 mg oral tablet)1 [...] by mouth) every day. Refills: 0. ?? Durable Medical Equipment for Prescription (BD UF Pen Needle Mini [id number])Use one needle for each injection daily. (current Injections are 4 times daily). Refills: 2. ?? Durable Medical Equipment for Prescription (Glucerna)Twice a day. Refills: 3. ?? Durable Medical Equipment for Prescription (Onetouch Ultra Blue Test Strips)use as directed four times daily. Refills: 12. ?? insulin aspart (NovoLOG FlexPen 100 units/mL [...] by mouth) every night at bedtime. Refills: 0. ?? memantine (memantine 5 mg oral tablet)1 [...] Other Prescription (BD UF MINI PEN NEEDLE [id number])USE DIRECTED FOUR TIMES A DAY NEEDED. Refills: [...] (given by mouth) every day. ?? Discontinued acetaminophen (acetaminophen 500 mg oral tablet)2 tab Oral (given by mouth) every 6 hours as needednot specified. ?? glucagon (Glucagon Emergency Kit for Low Blood Sugar 1 mg injection) ?? lidocaine topical (lidocaine 5% topical film)1 patch(es) Topical (on the skin) every day. remove patches after 12 hours. Refills: 0. ?? loperamide (loperamide 2 mg oral capsule)1 Capsules Oral (given by mouth) every 4 hours as needed as needed for loose stool. Refills: 2. ?? LORazepam (Ativan 0.5 mg oral tablet)0.5 tab Oral (given by mouth) every night at bedtime. Refills:0. ?? selenium sulfide topical (selenium sulfide 2.5% topical lotion)1 Application Topical (on the skin) every 48 hours. USE SHAMPOO EVERY OTHER DAY WHEN SHE SHAMPOOS. Electronically Signed on 09/03/22 11:39 AM Sandra Melo MD Electronically Signed on 09/03/22 11:40 AM Sandra Melo MD Patient Care team information Care Team Personnel Name: Jeannine Fernandes MD Position: Physician Member Role: Informed Provider Address: Address: [place] [address]- Name: Nithin Bellamy DISPUTE COORDINATOR Position: Physician Member Role: Nurse Practitioner Address: Address: [address] [address]- Name: Noreen York Position: Ambulatory - RN/LEGAL PROCESS SPECIALIST (Sanjay) Member Role: Hardboard Panel Printer Name: Grupo Walters DISPUTE COORDINATOR Position: Physician Member Role: Nurse Practitioner Name: Iris Lopez Position: Nurse Member Role: ED Nurse Name: Sang Dutton MD Position: Physician Member Role: ED Physician Address: Address: [address] [place] [address] [address] [place] [address] Name: Brenton Lisa MD Position: Physician Member Role: ED Physician Address: Address: [id number] [place] [address] Name: Hermila You Position: Nurse Member Role: ED Nurse Care Team Related Persons Name: ROMAN EARL Address: Home [address] [place] [phone] Name: ROMAN EARL Address: [facility] [address] [facility] [address] Address: Home [address] [place], [place] [id number]
--- OUTSIDE RECORDS SUMMARY | 2022-12-19 08:41 | XMS_ITS | Continuity of Care Document ---
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 [address] [place] [address] us Encounter Diagnosis Proctitis(Discharge Diagnosis) - 04/30/22 Discharge Disposition: Home or Self Care Attending Physician: Lino Hansen MD Admitting Physician: Lino Hansen MD Allergies, Adverse Reactions, Alerts Substance Reaction Severity Status codeine Rapid heart beat Unknown Active azithromycin Skin rash Unknown Active Assessment and Plan Extracted from: Title:Clinical Document Author:Vikki Bernard Date :04/30/22 Diagnosis: 1. Proctitis Comment: Diagnosis: Abdominal pain Comment: Diagnosis: Emesis Comment: Diagnosis: Nausea Comment: Future Appointments Functional Status 04/30/22 Family Member Travel History No recent t [...] corded varicella virus vaccine 06/07/00 Recorded Medications Augmentin 250 mg-62.5 mg/5 mL oral liquid 5 mL, Oral, every 12 hr, # 90 mL, 0 Refill(s), Pharmacy: [facility], 161, cm, 04/30/22 5:11:00 EST, Height/Length Dosing, 76, kg, 04/30/22 5:11:00 EST, Weight Dosing Start Date: 04/30/22 Stop Date: 05/09/22 Status: Ordered BD PEN NEEDLE/MINI/ULTRA- [id number] MIS BD PEN NEEDLE/MINI/ULTRA- [id number] MIS, 0 Refill(s) Start Date: 12/17/21 Status: Ordered BD UF MINI PEN NEEDLE [id number] BD UF MINI PEN NEEDLE [id number], See Instructions, USE DIRECTED FOUR TIMES A DAY NEEDED, # 100 EA, 3 Refill(s), Pharmacy: [facility] Start Date: 02/24/22 Status: Ordered BD UF MINI PEN NEEDLE [id number] USE DIRECTED FOUR TIMES A DAY NEEDED Start Date: 12/17/21 Status: Ordered BD UF Pen Needle Mini [id number] BD UF Pen Needle Mini 54Ge3ph, Use one needle for each injection daily. (current Injections are 4 times daily), Supply, See instructions, # 100 EA, 2 Refill(s), Pharmacy: [facility] Start Date: 01/16/22 Status: Ordered ferrous gluconate 324 mg (38 mg elemental iron) oral tablet TAKE ONE TABLET BY MOUTH EVERY DAY Start Date: 12/17/21 Status: Ordered Levemir FlexTouch 100 units/mL subcutaneous solution 15 units =, Subcutaneous, Daily, INJECT 15 UNITS AT BEDTIME DAILY, # 15 mL, 3 Refill(s), Pharmacy: [facility] Start Date: 04/09/22 Status: Ordered loperamide [...] DAY, # 90 tab, 3 Refill(s), Pharmacy: [facility] Start Date: 01/01/22 Status: Ordered mupirocin 2% topical ointment See Instructions, APPLY A SMALL AMOUNT TOPICALLY TO AFFECTED AREA(S) THREE TIMES A DAY, # 22 g, 1 Refill(s), Pharmacy: [facility] Start Date: 03/23/22 Status: Ordered nitroglycerin 0.[address] ONE TABLET UNDER THE TONGUE EVERY 5 MINUTES FOR UP TO 3 DOSES NEEDED FOR CHEST PAIN. IF CHEST PAIN STILL PERSISTS CONTACT 911 Start Date: 12/17/21 Status: Ordered NovoLOG FlexPen 100 units/mL injectable solution 5 units =, Subcutaneous, TID(AC), # 10 mL, 0 Refill(s), Pharmacy: [facility] Start Date: 04/09/22 Status: Ordered Onetouch Ultra Blue Test Strips Onetouch Ultra Blue Test Strips, use as directed four times daily, Supply, See instructions, # 300 EA, 12 Refill(s), Pharmacy: [facility] Start Date: 12/11/21 Status: Ordered oxybutynin 5 mg oral tablet 1 (one) Tablet: 2-3 TIMES DAILY NEEDED, 0 Refill(s) Start Date: 12/17/21 Status: Ordered pantoprazole 40 mg oral delayed release tablet 40 mg = 1 tab, Oral, Daily, TAKE ONE TABLET BY MOUTH EVERY DAY, # 90 tab, 3 Refill(s), Pharmacy: [facility] Start Date: 01/01/22 Status: Ordered propranolol 20 mg oral tablet 60 mg = 3 tab, Oral, BID, # 180 tab, 3 Refill(s), Pharmacy: [facility] Start Date: 04/23/22 Status: Ordered venlafaxine 150 mg oral capsule, extended release TAKE ONE CAPSULE BY MOUTH EVERY DAY Start Date: 12/17/21 Status: Ordered Vitamin B2 100 mg oral tablet 1 tab, Oral, Daily, # 90 tab, 1 Refill(s), Pharmacy: [facility] Start Date: 03/23/22 Status: Ordered Vitamin [...] Laboratory List Name Date Basic Metabolic Panel 04/30/22 CBC w/ Diff 04/30/22 Comprehensive Metabolic Panel 04/30/22 Lipase Level 04/30/22 Automated Diff 04/30/22 Most recent to oldest [Reference Range]: 1 2 WBC [5.0-10.0 x10^3/mcL] 5.5 x10^3/mcL (04/30/22 5:11 AM) RBC [4.1-5.3 x10^6/mcL] 3.6 x10^6/mcL *LOW* (04/30/22 5:11 AM) Neutro Auto [40.0-75.0 %] 48.6 % (04/30/22 5:11 AM) Lymph Auto [20.0-50.0 %] 33.9 % (04/30/22 5:11 AM) [place] Auto [2.0-15.0 %] 9.6 % (04/30/22 5:11 AM) Basophil Auto [0.0-1.0 %] 1.5 % *HI* (04/30/22 5:11 AM) BUN [7-18 mg/dL] 51 mg/dL *HI* (04/30/22 12:55 PM) 62 mg/dL *HI* (04/30/22 5:11 AM) Glucose Level [74-106 mg/dL] 197 mg/dL *HI* (04/30/22 12:55 PM) 202 mg/dL *HI* (04/30/22 5:11 AM) Potassium Level [3.5-5.1 mmol/L] 4.6 mmo l/L (04/30/22 12:55 PM) 4.3 mmol/L (04/30/22 5:11 AM) MCV [80.0-96.0] 97.5 *HI* (04/30/22 5:11 AM) AST [15-37 unit/L] 15 unit/L (04/30/22 5:11 AM) ALT [14-59 unit/L] 10 unit/L *LOW* (04/30/22 5:11 AM) MCHC [31.0-35.0 g/dL] 32.6 g/dL (04/30/22 5:11 AM) Sodium Level [136-145 mmol/L] 136 mmol/L (04/30/22 12:55 PM) 137 mmol/L (04/30/22 5:11 AM) Hct [37.0-47.0 %] 35.3 % *LOW* (04/30/22 5:11 AM) Lipase Level [16-77 unit/L] 20 unit/L (04/30/22 5:11 AM) Calcium Level [8.5-10.1 mg/dL] 9.9 mg/dL (04/30/22 12:55 PM) 10.9 mg/dL *HI* (04/30/22 5:11 AM) Albumin Level [3.4-5.0 g/dL] 3.6 g/dL (04/30/22 5:11 AM) Protein Total [6.4-8.2 g/dL] 7.2 g/dL (04/30/22 5:11 AM) MCH [26.0-32.0 pg] 31.8 pg (04/30/22 5:11 AM) Neutro Absolute 2.7 x10^3/mcL *NA* (04/30/22 5:11 AM) Bilirubin Total [0.2-1.0 mg/dL] 0.4 mg/d L (04/30/22 5:11 AM) Hgb [12.0-16.0 g/dL] 11.5 g/dL *LOW* (04/30/22 5:11 AM) Alk Phos [46-146 unit/L] 75 unit/L (04/30/22 5:11 AM) Platelets [130-450 x10^3/mcL] 118 x10^3/ mcL *LOW* (04/30/22 5:11 AM) CO2 [21-32 mmol/L] 27 mmol/L (04/30/22 12:55 PM) 26 mmol/L (04/30/22 5:11 AM) eGFR Non-AA [>=60] 17 *LOW* (04/30/22 12:55 PM) 14 *LOW* (04/30/22 5:11 AM) eGFR AA [>=60] 17 *LOW* (04/30/22 12:55 PM) 14 *LOW* (04/30/22 5:11 AM) Chloride Level [98-107 mmol/L] 102 mmol/ L (04/30/22 12:55 PM) 101 mmol/L (04/30/22 5:11 AM) RDW-CV [11.7-17.0 %] 13.5 % (04/30/22 5:11 AM) Imm Gran Auto [0.0-0.9 %] 0.4 % (04/30/22 5:11 AM) Creatinine Level [0.55-1.02 mg/dL] 2.83 mg/dL *HI* (04/30/22 12:55 PM) 3.26 mg/dL *HI* (04/30/22 5:11 AM) Eos, Auto [1.0-6.0 %] 6.0 % (04/30/22 5:11 AM) Vital Signs Most recent to oldest [Reference Range]: 1 2 3 Temperature Temporal Artery [36-38 Deg C] 36.6 Deg C (04/30/22 4:28 AM) Peripheral Pulse Rate [60-100 bpm] 63 bpm (04/30/22 11:42 AM) 61 bpm (04/30/22 11:00 AM) 64 bpm (04/30/22 9:09 AM) Heart Rate Monitored [60-100 bpm] 66 bpm (04/30/22 12:45 PM) 62 bpm (04/30/22 11:42 AM) 61 bpm (04/30/22 11:00 AM) Respiratory Rate [12-24 br/min] 16 br/min (04/30/22 12:45 PM) 21 br/min (04/30/22 11:42 AM) 11 br/min *LOW* (04/30/22 11:00 AM) Blood Pressure [90-140/60-90 mmHg] 148/72mmHg *HI* (04/30/22 12:45 PM) 137/56mmHg (04/30/22 11:00 AM) 155/101mmHg *HI* (04/30/22 7:09 AM) Weight Dosing 76.00 kg (04/30/22 5:11 AM) Weight Estimated 76.00 kg (04/30/22 4:28 AM) Height/Length Dosing 161.000 cm (04/30/22 5:11 AM) Height/Length Estimated 161.000 cm (04/30/22 4:28 AM) Social History Social History Type Response Tobacco Never tobacco user T obacco Use:. Sex Female Hospital Discharge Instructions Patient Education 04/30/2022 12:28:01 Proctitis Proctitis Proctitis is swelling and soreness (inflammation) of the lining of the rectum. The rectum is at theend of the large intestine, and it leads to the anus. The inflammation causes pain and discomfort. It may be short-term and sudden (acute) or a long-lasting (chronic) problem. What are the causes? This condition may be caused by: ??? STDs (sexually transmitted diseases). ??? Infection. ??? Trauma or injury to the anus or rectum. ??? Ulcerative colitis or Crohn's disease. ??? Radiation therapy that is directed near the rectum. ??? Antibiotic therapy. What are the signs or symptoms? Symptoms of this condition include: ??? Sudden, uncomfortable, and frequent urges to have a bowel movement. ??? Anal pain or rectal pain. ??? Pain or cramping in the abdomen. ??? A sensation that the rectum is full. ??? Rectal bleeding. ??? Pus or mucus discharge from the anus. ??? Diarrhea or frequent soft, loose stools (feces). ??? Constipation. ??? Pain with bowel movements. How is this diagnosed? This condition may be diagnosed based on: ??? A medical history and physical exam. ??? Various tests, such as: ??? An STD test. ??? Blood tests. ??? Stool tests. ??? Rectal culture. ??? A procedure to evaluate the anal canal (anoscopy). ??? Procedures to look at the entire large bowel or part of it (colonoscopy or sigmoidoscopy). How is this treated? Treatment for this condition depends on the cause. The main goals of treatment are to reduce the symptoms of inflammation and to get rid of any infection. Treatment may include: ??? Home remedies and lifestyle changes. These may include: ??? Sitz baths. A sitz bath can be used to help relieve symptoms, clean, and promote healing in thegenital and anal areas. ??? Avoiding food right before bedtime. ??? Medicines, such as: ??? Corticosteroid or anti-inflammatory medicines. These include topical ointments, foams, suppositories, or enemas. ??? Antibiotic medicines to treat infection or to control harmful bacteria. Antiviral medicines mayalso be used. ??? Medicines to control diarrhea, soften stools, and reduce pain. ??? Medicines to suppress the immune system. ??? Nutritional, dietary, or herbal supplements. ??? Avoiding the activity that caused rectal trauma. ??? Heat or laser therapy for persistent bleeding. ??? A dilation procedure to enlarge a narrowed rectum. ??? Surgery to repair the damaged rectal lining. This is rare. If your proctitis was caused by an STD, your health care provider may test you for infection again 3 months after treatment. Follow these instructions at home: Medicines ??? Take ezvu-xdx-hvgaekz and prescription medicines only as told by your health care provider. ??? If you were prescribed an antibiotic medicine, take it as told by your health care provider. Donot stop using the antibiotic even if you start to feel better. General instructions ??? Take sitz baths as told by your health care provider. A sitz bath is a shallow, warm water baththat is taken while you are sitting down. The water should only come up to your hips and should cover your buttocks. ??? Try to avoid eating right before bedtime. ??? You may need to take actions to prevent or treat constipation, such as: ??? Drink enough fluid to keep your urine pale yellow. ??? Take lork-aji-wuwkfye or prescription medicines. ??? Eat foods that are high in fiber, such as beans, whole grains, and fresh fruits and vegetables. ??? Limit foods that are high in fat and processed sugars, such as fried or sweet foods. ??? Keep all follow-up visits as told by your health care provider. This is important. Contact a health care provider if: ??? Your symptoms do not improve with treatment. ??? Your symptoms get worse. ??? You have a fever. Get help right away if you: ??? Have blood in your stool or blood coming from the rectal area. Summary ??? Proctitis is swelling and soreness (inflammation) of the lining of the rectum. ??? Inflammation from proctitis causes pain and discomfort. ??? This condition may be caused by STDs, infection, trauma, ulcerative colitis, radiation therapy,or antibiotic therapy. ??? Proctitis may be treated with sitz baths, medicines, heat or laser therapy, or dilation. Rarely, this condition may be treated with surgery. This information is not intended to replace advice given to you by your health care provider. Make sure you discuss any questions you have with your health care provider. Document Revised: 03/25/2021 Document Reviewed: 01/04/2019 [employer] Patient Education ?? 2021 [employer]. Follow Up Care 04/30/2022 04:28:48 With:Follow up with primary care provider Address: When:1 week Physician Emergency department Note * Lino Hansen MD: PERFORM Event Display: ED Note Physician Authored Date: [id number] MARIA INES BROOKS :1945 Age:77 years Sex:Female Visit Date:04/30/2022 Primary Care Physician: Jeannine Fernandes MD Basic Information Time Seen: Lino Hansen MD / 04/30/2022 04:53 Chief Complaint abdominal pain/nausea/emesis - Since yesterday morning. History of diabetes. POC gluc 244 for EMS. History Of Present Illness: Patient presents with??complaints of??insomnia??and left lower quadrant abdominal pain times a day.??States that she has been feeling uncomfortable with the abdomen??but the reason why she contactedEMS is that she was feeling shaky and??nervous and unable to sleep. ?? Now states that she has??recent onset of left lower quadrant abdominal pain. ??No fever no nausea vomiting or diarrhea. ??No hematochezia.?? She has not had pain in left lower quadrant before.?? No urinary symptoms.?? No significant recent??abdominal surgical history. Review of Systems: Constitutional:?No??fevers,?No??chills,?No??sweats Eye:?No??recent visual problems ENT:?No??ear pain,?No??nasal congestion,?No??sore throat Respiratory:?No??shortness of breath,?No??cough Cardiovascular:?No??Chest pain,?No??palpitations,?No??syncope Gastrointestinal:?Nonausea,?No??vomiting,?No??diarrhea Genitourinary:?No??hematuria Jean/Lymph:?No??bruising tendency,?No??swollen lymph glands Endocrine:?No??excessive thirst,??No??excessive hunger Musculoskeletal:??No??back pain,??No??neck pain,??No??joint pain,??No??muscle pain,??No??decreased range of motion Integumentary:?No??rash,?No??pruritus,?No??abrasions Neurologic: Alert & oriented X 4 Psychiatric:?Positive for??anxiety,?No??depression Physical Exam Vitals & Measurements T:??36.6?C ??(Temporal Artery)?? HR:??66??(Monitored)?? RR:??16?? BP:??148/72?? SpO2:??97%?? HT:??161.000??cm?? WT:??76.00??kg??(Estimated)?? O2 Therapy:??Room air?? General: Alert and oriented, well nourished,?No??acute distress Eye: PERRL, EOMI,?Normal??conjunctiva HENT: Normocephalic,??Normal?? hearing, moist oral mucosa,?No??scleral icterus Neck:??FROM,??No??JVD Lungs: Non-labored?? respiration Heart:?Normal?? rate,?Regular??rhythm,?No??peripheral edema, Adequate peripheral perfusion Abdomen: Soft with mild left lower quadrant abdominal tenderness.?? Normal bowel sounds. Musculoskeletal:?Normal?? range of motion and strength,?No??tenderness,?No??swelling Skin:??No??rashes,?No??lesions, Dry Neurologic: Awake, alert and oriented X4, CN II-XII intact, Steady Gait Psychiatric: Cooperative, appropriate mood and affect. Linear thought process Medical Decision Making: ? Will obtain basic labs and CT scan of the abdomen pelvis to rule out diverticulitis colitis or bowel obstruction.?? Patient arrived to the emergency department around the time of signout and was endorsed to the daytime attending. Procedure No Qualifying Data Assessment/Plan 1.??Proctitis??K62.89 CT scan shows??evidence of??proctitis.?? Please see Dr. Kendrick's chart Patient Education Proctitis Follow Up With When Contact Information Follow up with primary care provider Within 1 week Additional Instructions: Medication Reconciliation New Prescription amoxicillin-clavulanate (Augmentin 250 mg-62.5 mg/5 mL oral liquid)5 Milliliters Oral (given by mouth) every 12 hours for 9 Days. Refills: 0. ?? Unchanged ascorbic acid (Vitamin C TR 500 mg oral capsule)1 Capsules Oral (given by mouth) every day. ?? Durable Medical Equipment for Prescription (BD UF Pen Needle Mini 02Or2ri)Use one needle for each injection daily. (current Injections are 4 times daily). Refills: 2. ?? Durable Medical Equipment for Prescription (SpaceClaim Ultra Blue Test Strips)use as directed four times daily. Refills: 12. ?? ferrous gluconate (ferrous gluconate 324 mg (38 mg elemental iron) oral tablet)TAKE ONE TABLET BY MOUTH EVERY DAY. ?? insulin aspart (NovoLOG FlexPen 100 units/mL injectable solution)5 Units Subcutaneous (under the skin) 3 times a day before meals. Refills: 0. ?? insulin detemir (Levemir FlexTouch 100 units/mL subcutaneous solution)15 Units Subcutaneous (under the skin) every day. INJECT 15 UNITS AT BEDTIME DAILY. Refills: 3. ?? loperamide (loperamide 2 mg oral capsule)TAKE ONE CAPSULE BY MOUTH EVERY 12 HOURS NEEDED. ?? memantine (memantine 5 mg oral tablet)TAKE [...] 911. ?? Other Prescription (BD PEN NEEDLE/MINI/ULTRA- [id number] MIS) ?? Other Prescription (BD UF MINI PEN NEEDLE [id number])USE DIRECTED FOUR TIMES A DAY NEEDED. Refills: 3. ?? Other Prescription (BD UF MINI PEN NEEDLE [id number])USE DIRECTED FOUR TIMES A DAY NEEDED. ?? [...] (06/07/1973)???Total abdominal hysterectomy (06/07/1971) Medication Administration Given acetaminophen, 650 mg, Oral Augmentin 500 mg-125 mg oral tablet, 0.5 tab, Oral NS bolus, 1000 mL, IV Piggyback NS bolus, 1000 mL, IV Piggyback Zofran, 4 mg, IV Push Allergies azithromycin??(Skin rash) codeine??(Rapid heart beat) Social History Electronic Cigarette/Vaping Electronic Cigarette Use: Never. Home/Environment Tobacco Never tobacco user Tobacco Use:. Family History Coronary arteriosclerosis: Mother. Diabetes mellitus: Mother and Brother. Granulomatosis with polyangiitis with multisystem involvement: Brother. Heart disease: Mother, Father and Brother. Hypertensive disorder: Mother and Brother. Malignant tumor of stomach: Mother. Family Member(s): ?? BROTHER, at age: Unknown. Cause of : Lab Results CBC and Differential?? LATEST RESULTS?? HISTORICAL RESULTS?? WBC?? 04/30/22 05:11?? 5.5?? 04/09/22?? 8.2?? RBC?? 04/30/22 05:11?? 3.6 ??Low?? 04/09/22?? 3.8 ??Low?? Hgb?? 04/30/22 05:11?? 11.5 ??Low?? 04/09/22?? 12.2?? Hct?? 04/30/22 05:11?? 35.3 ??Low?? 04/09/22?? 37.5?? MCV?? 04/30/22 05:11?? 97.5 ??High?? 04/09/22?? 97.9 ??High?? MCH?? 04/30/22 05:11?? 31.8?? 04/09/22?? 31.9?? MCHC?? 04/30/22 05:11?? 32.6?? 04/09/22?? 32.5?? RDW-CV?? 04/30/22 05:11?? 13.5?? 04/09/22?? 13.3?? Platelets?? 04/30/22 05:11?? 118 ??Low?? 04/09/22?? 133?? Neutro Auto?? 04/30/22 05:11?? 48.6?? 04/09/22?? 67.0?? Lymph Auto?? 04/30/22 05:11?? 33.9?? 04/09/22?? 19.6 ??Low?? [place] Auto?? 04/30/22 05:11?? 9.6?? 04/09/22?? 6.9?? Eos, Auto?? 04/30/22 05:11?? 6.0?? 04/09/22?? 5.3?? Basophil Auto?? 04/30/22 05:11?? 1.5 ??High?? 04/09/22?? 0.8?? Imm Gran Auto?? 04/30/22 05:11?? 0.4?? 04/09/22?? 0.4?? Neutro Absolute?? 04/30/22 05:11?? 2.7?? 04/09/22?? 5.5? Routine Chemistry?? LATEST RESULTS?? HISTORICAL RESULTS?? Sodium Level?? 04/30/22 12:55?? 136?? 04/09/22?? 138?? Potassium Level?? 04/30/22 12:55?? 4.6?? 04/09/22?? 4.5?? Chloride Level?? 04/30/22 12:55?? 102?? 04/09/22?? 98?? CO2?? 04/30/22 12:55?? 27?? 04/09/22?? 27?? Alk Phos?? 04/30/22 05:11?? 75?? 04/09/22?? 78?? AST?? 04/30/22 05:11?? 15?? 04/09/22?? 11 ??Low?? ALT?? 04/30/22 05:11?? 10 ??Low?? 04/09/22?? 9 ??Low?? BUN?? 04/30/22 12:55?? 51 ??High?? 04/09/22?? 48 ??High?? Glucose Level?? 04/30/22 12:55?? 197 ??High?? 04/09/22?? 158 ??High?? Creatinine Level?? 04/30/22 12:55?? 2.83 ??High?? 04/09/22?? 2.59 ??High?? eGFR AA?? 04/30/22 12:55?? 17 ??Low?? 04/09/22?? 19 ??Low?? eGFR Non-AA?? 04/30/22 12:55?? 17 ??Low?? 04/09/22?? 19 ??Low?? Calcium Level?? 04/30/22 12:55?? 9.9?? 04/09/22?? 11.3 ??High?? Protein Total?? 04/30/22 05:11?? 7.2?? 04/09/22?? 7.3?? Albumin Level?? 04/30/22 05:11?? 3.6?? 04/09/22?? 3.6?? Bilirubin Total?? 04/30/22 05:11?? 0.4?? 04/09/22?? 0.6?? Lipase Level?? 04/30/22 05:11?? 20? Electronically Signed on 04/30/22 06:49 PM Lino Hansen MD * Nayana Wheatley MD: PERFORM Event Display: ED Note Physician Authored Date: [id number] MARIA INES BROOKS :1945 Age:77 years Sex:Female Visit Date:04/30/2022 Primary Care Physician: Jeannine Fernandes MD Basic Information Time Seen: Lino Hansen MD / 04/30/2022 04:53 Chief Complaint abdominal pain/nausea/emesis - Since yesterday morning. History of diabetes. POC gluc 244 for EMS. History Of Present Illness: Pt signed out to me at 7am. This is a 77F whl presented with n/v and abd pain with LLQ ttp on exam.She is awaiting labs and CT a/p to r/o diverticulitis. Labs resulted: No leukocytosis DEL noted with Cr 3.2 from previously 2.6 Hyperglycemia with normal AG of 7 ?? 11:00 - CT resulted. Shows changes around rectum s/f proctitis. Some changes at the lung base - patient with no fever, no cough, not consistent with pna. Other incidental change to kidney??noted which will require f/u as an outpatient. On reevaluation the patient is well appearing. Her pain is well controlled. She reports a h/o UTI last week, for which she has taken huge pills and she developed abdominal pain with the first pill but she has been able to eat and keep food down, especially food. Her UTI symptoms consisted of urgency and burning on urination, and she says they have all resolved. She tells me she has a history of??irritable bowel syndrome??with??alternation between??constipation and diarrhea??and most recently she has been having??more diarrhea than constipation.?? She has had no fevers or chills. Abdominal exam benign - she is nt, nd, no mass felt, no rebound or guarding I shared??the results of the CAT scan with her. ??She has no??rectal pain??or irritation.?She has never had radiation therapy, she has never had??abdominal surgery. ??She has never had a colonoscopy. The diagnosis of proctitis and h/o IBS and lack of h/o colonoscopy make me wonder if she has IBD. She will need a colonoscopy as an outpatient once this episode has resolved.??I discussed her laboratory results with her,??especially the elevated creatinine??from baseline.?? We discussed various options??and she opted??for trial??of additional IV fluids??and rechecking??creatinine??and if??it goes??in the right direction,??she would like to go home.?? I think this is reasonable, she could go home??with a course of??p.o. antibiotics for her proctitis??and??encouragement of p.o. fluids??for kidney function, and rapid follow up with pcp.?? She received an additional liter of normal saline (total number given since 5 AM??this 2 L IV). ?? 13:20 - repeat BMP resulted, creatinine is improved to 2.8 from 3.2.?? It is almost back to baseline.?? The patient's pain continues to be well controlled. ??She has not had any nausea or vomiting??in the past few hours.?? She passed??a p.o. challenge.?? Abdominal exam continues to be benign. She will be discharged home on Augmentin renally dosed at 250mg q12hrs with close follow-up with [facility].?? Discharge instructions and return precautions discussed, all questions answered. Physical Exam Vitals & Measurements T:??36.6?C ??(Temporal Artery)?? HR:??66??(Monitored)?? RR:??16?? BP:??148/72?? SpO2:??97%?? HT:??161.000??cm?? WT:??76.00??kg??(Estimated)?? O2 Therapy:??Room air?? Procedure No Qualifying Data Assessment/Plan 1.??Proctitis??K62.89 Ordered: Augmentin 250 mg-62.5 mg/5 mL oral liquid, 5 mL, Oral, every 12 hr, # 90 mL, 0 Refill(s), Pharmacy:[id number], 161, cm, 04/30/22 5:11:00 EST, Height/Length Dosing, 76, kg, 04/30/22 5:11:00EST, Weight Dosing ?? Orders: Augmentin 500 mg-125 mg oral tablet, 0.5 tab, Oral, Tab, BID for 1 days, Antibiotic Indication Other (specify in order comments), First Dose: 04/30/22 13:39:00 EST, Stop Date: 05/01/22 8:59:00 EST, Physician Stop, STAT Zofran, 4 mg = 2 mL, IV Push, Soln, every 6 hr, PRN nausea/vomiting, First Dose: 04/30/22 9:08:00 EST, STAT Discharge Patient, 04/30/22 13:36:00 EST, Constant Indicator Patient Education Proctitis Follow Up With When Contact Information Follow up with primary care provider Within 1 week Additional Instructions: Medication Reconciliation New Prescription amoxicillin-clavulanate (Augmentin 250 mg-62.5 mg/5 mL oral liquid)5 Milliliters Oral (given by mouth) every 12 hours for 9 Days. Refills: 0. ?? Unchanged ascorbic acid (Vitamin C TR 500 mg oral capsule)1 Capsules Oral (given by mouth) every day. ?? Durable Medical Equipment for Prescription (BD UF Pen Needle Mini [id number])Use one needle for each injection daily. (current Injections are 4 times daily). Refills: 2. ?? Durable Medical Equipment for Prescription (Onetouch Ultra Blue Test Strips)use as directed four times daily. Refills: 12. ?? ferrous gluconate (ferrous gluconate 324 mg (38 mg elemental iron) oral tablet)TAKE ONE TABLET BY MOUTH EVERY DAY. ?? insulin aspart (NovoLOG FlexPen 100 units/mL injectable solution)5 Units Subcutaneous (under the skin) 3 times a day before meals. Refills: 0. ?? insulin detemir (Levemir FlexTouch 100 units/mL subcutaneous solution)15 Units Subcutaneous (under the skin) every day. INJECT 15 UNITS AT BEDTIME DAILY. Refills: 3. ?? loperamide (loperamide 2 mg oral capsule)TAKE ONE CAPSULE BY MOUTH EVERY 12 HOURS NEEDED. ?? memantine (memantine 5 mg oral tablet)TAKE [...] 911. ?? Other Prescription (BD PEN NEEDLE/MINI/ULTRA- [id number] MIS) ?? Other Prescription (BD UF MINI PEN NEEDLE [id number])USE DIRECTED FOUR TIMES A DAY NEEDED. Refills: 3. ?? Other Prescription (BD UF MINI PEN NEEDLE [id number])USE DIRECTED FOUR TIMES A DAY NEEDED. ?? [...] (06/07/1973)???Total abdominal hysterectomy (06/07/1971) Medication Administration Given acetaminophen, 650 mg, Oral Augmentin 500 mg-125 mg oral tablet, 0.5 tab, Oral NS bolus, 1000 mL, IV Piggyback NS bolus, 1000 mL, IV Piggyback Zofran, 4 mg, IV Push Allergies azithromycin??(Skin rash) codeine??(Rapid heart beat) Social History Electronic Cigarette/Vaping Electronic Cigarette Use: Never. Home/Environment Tobacco Never tobacco user Tobacco Use:. Family History Coronary arteriosclerosis: Mother. Diabetes mellitus: Mother and Brother. Granulomatosis with polyangiitis with multisystem involvement: Brother. Heart disease: Mother, Father and Brother. Hypertensive disorder: Mother and Brother. Malignant tumor of stomach: Mother. Family Member(s): ?? BROTHER, at age: Unknown. Cause of : Lab Results CBC and Differential?? LATEST RESULTS?? HISTORICAL RESULTS?? WBC?? 04/30/22 05:11?? 5.5?? 04/09/22?? 8.2?? RBC?? 04/30/22 05:11?? 3.6 ??Low?? 04/09/22?? 3.8 ??Low?? Hgb?? 04/30/22 05:11?? 11.5 ??Low?? 04/09/22?? 12.2?? Hct?? 04/30/22 05:11?? 35.3 ??Low?? 04/09/22?? 37.5?? MCV?? 04/30/22 05:11?? 97.5 ??High?? 04/09/22?? 97.9 ??High?? MCH?? 04/30/22 05:11?? 31.8?? 04/09/22?? 31.9?? MCHC?? 04/30/22 05:11?? 32.6?? 04/09/22?? 32.5?? RDW-CV?? 04/30/22 05:11?? 13.5?? 04/09/22?? 13.3?? Platelets?? 04/30/22 05:11?? 118 ??Low?? 04/09/22?? 133?? Neutro Auto?? 04/30/22 05:11?? 48.6?? 04/09/22?? 67.0?? Lymph Auto?? 04/30/22 05:11?? 33.9?? 04/09/22?? 19.6 ??Low?? [place] Auto?? 04/30/22 05:11?? 9.6?? 04/09/22?? 6.9?? Eos, Auto?? 04/30/22 05:11?? 6.0?? 04/09/22?? 5.3?? Basophil Auto?? 04/30/22 05:11?? 1.5 ??High?? 04/09/22?? 0.8?? Imm Gran Auto?? 04/30/22 05:11?? 0.4?? 04/09/22?? 0.4?? Neutro Absolute?? 04/30/22 05:11?? 2.7?? 04/09/22?? 5.5? Routine Chemistry?? LATEST RESULTS?? HISTORICAL RESULTS?? Sodium Level?? 04/30/22 12:55?? 136?? 04/09/22?? 138?? Potassium Level?? 04/30/22 12:55?? 4.6?? 04/09/22?? 4.5?? Chloride Level?? 04/30/22 12:55?? 102?? 04/09/22?? 98?? CO2?? 04/30/22 12:55?? 27?? 04/09/22?? 27?? Alk Phos?? 04/30/22 05:11?? 75?? 04/09/22?? 78?? AST?? 04/30/22 05:11?? 15?? 04/09/22?? 11 ??Low?? ALT?? 04/30/22 05:11?? 10 ??Low?? 04/09/22?? 9 ??Low?? BUN?? 04/30/22 12:55?? 51 ??High?? 04/09/22?? 48 ??High?? Glucose Level?? 04/30/22 12:55?? 197 ??High?? 04/09/22?? 158 ??High?? Creatinine Level?? 04/30/22 12:55?? 2.83 ??High?? 04/09/22?? 2.59 ??High?? eGFR AA?? 04/30/22 12:55?? 17 ??Low?? 04/09/22?? 19 ??Low?? eGFR Non-AA?? 04/30/22 12:55?? 17 ??Low?? 04/09/22?? 19 ??Low?? Calcium Level?? 04/30/22 12:55?? 9.9?? 04/09/22?? 11.3 ??High?? Protein Total?? 04/30/22 05:11?? 7.2?? 04/09/22?? 7.3?? Albumin Level?? 04/30/22 05:11?? 3.6?? 04/09/22?? 3.6?? Bilirubin Total?? 04/30/22 05:11?? 0.4?? 11/03/22?? 0.6?? Lipase Level?? 04/30/22 05:11?? 20? Electronically Signed on 04/30/22 02:26 PM Nayana Wheatley MD Emergency department Discharge instructions * Nayana Wheatley MD: PERFORM Event Display: ED Discharge Information Authored Date: [id number] CECILIA MARIA INES G :1945 Age:77 years Sex:Female Visit Date:04/30/2022 Primary Care Physician: Jeannine Fernandes MD Discharge Instructions We would like to thank you for allowing us to assist you with your healthcare needs. The following includes patient education materials and information regarding your injury/illness. Diagnosis from Today's Visit Proctitis Discharge Vitals Temperature??(Temporal Artery) 97.9 ??F (36.6 ??C) Heart Rate??(Monitored) 66 Respiratory Rate?? 16 Blood Pressure?? 148/72?? Height?? 63.39 in (161.000 cm) Weight??(Estimated) 167.58 lb (76.00 kg) Allergies azithromycin??(Skin rash) codeine??(Rapid heart beat) What to Do Next Instructions from Your Care Team Please take antibiotics as prescribed??for the next 10 days.?? You were given a first dose??today,??and a second dose to take tonight.?? Please??get the rest of the medications from your pharmacy tomorrow.??It will be in a liquid form.??Please reach out to your primary care doctor??for reevaluationin approximately 1 week??to check??on your labs.?? You may also need??a colonoscopy,??your primary care??provider will review??the care done today and may??proceed with that.?? Finally, your CAT scanshowed a lesion on your kidney??which will need??further evaluation??with imaging.?? Again, your primary care provider??can review the care??provided today and determining the best action.?? Please return to the emergency department for any new or worsening symptoms??including inability to eat or drink,??fever, urinary symptoms??or for any other concern. You Need to Schedule the Following Appointments Follow Up with??Follow up with primary care provider When:??Within 1 week Upcoming Scheduled Appointments Wednesday 11:00 AM EST [...] Much When Why Instructions Next Dose New amoxicillin-clavulanate (Augmentin 250 mg-62.5 mg/ 5 mL oral liquid) 5 Milliliters Oral (given by mouth) Every 12 hours Proctitis Duration: 9 Days Pickup at [id number] Unchanged ascorbic acid (Vitamin C TR 500 mg oral capsule) 1 Capsules Oral (given by mouth) Every day Unchanged Durable Medical Equipment for Prescription (BD UF Pen Needle Mini [id number]) See instructions DM2 (diabetes mellitus, type 2) [...] TABLET BY MOUTH EVERY DAY ?? Unchanged insulin aspart (NovoLOG FlexPen 100 units/ mL injectable solution) 5 Units Subcutaneous (under the skin) 3 times a day before meals Unchanged insulin detemir (Levemir FlexTouch 100 units/ mL subcutaneous solution) 15 Units Subcutaneous (under the skin) Every day DM2 (diabetes mellitus, type 2) INJECT 15 UNITS AT BEDTIME DAILY ?? Unchanged loperamide (loperamide 2 mg oral capsule) TAKE ONE CAPSULE BY MOUTH EVERY 12 HOURS NEEDED ?? Unchanged memantine (memantine 5 mg oral [...] Other Prescription (BD PEN NEEDLE/ MINI/ ULTRA- [id number] MIS) Unchanged Other Prescription (BD UF MINI PEN NEEDLE [id number]) See instructions USE DIRECTED FOUR TIMES A DAY NEEDED ?? Unchanged Other Prescription (BD UF MINI PEN NEEDLE [id number]) USE DIRECTED FOUR TIMES A DAY NEEDED [...] ONE CAPSULE BY MOUTH EVERY DAY ?? Pharmacy Information [facility]: [address], [place] [id number] [phone] Education Materials Proctitis Proctitis is swelling and soreness (inflammation) of the lining of the rectum. The rectum is at theend of the large intestine, and it leads to the anus. The inflammation causes pain and discomfort. It may be short-term and sudden (acute) or a long-lasting (chronic) problem. What are the causes? This condition may be caused by: ? STDs (sexually transmitted diseases). ? Infection. ? Trauma or injury to the anus or rectum. ? Ulcerative colitis or Crohn's disease. ? Radiation therapy that is directed near the rectum. ? Antibiotic therapy. What are the signs or symptoms? Symptoms of this condition include: ? Sudden, uncomfortable, and frequent urges to have a bowel movement. ? Anal pain or rectal pain. ? Pain or cramping in the abdomen. ? A sensation that the rectum is full. ? Rectal bleeding. ? Pus or mucus discharge from the anus. ? Diarrhea or frequent soft, loose stools (feces). ? Constipation. ? Pain with bowel movements. How is this diagnosed? This condition may be diagnosed based on: ? A medical history and physical exam. ? Various tests, such as: ? An STD test. ? Blood tests. ? Stool tests. ? Rectal culture. ? A procedure to evaluate the anal canal (anoscopy). ? Procedures to look at the entire large bowel or part of it (colonoscopy or sigmoidoscopy). How is this treated? Treatment for this condition depends on the cause. The main goals of treatment are to reduce the symptoms of inflammation and to get rid of any infection. Treatment may include: ? Home remedies and lifestyle changes. These may include: ? Sitz baths. A sitz bath can be used to help relieve symptoms, clean, and promote healing in the genital and anal areas. ? Avoiding food right before bedtime. ? Medicines, such as: ? Corticosteroid or anti-inflammatory medicines. These include topical ointments, foams, suppositories, or enemas. ? Antibiotic medicines to treat infection or to control harmful bacteria. Antiviral medicines may also be used. ? Medicines to control diarrhea, soften stools, and reduce pain. ? Medicines to suppress the immune system. ? Nutritional, dietary, or herbal supplements. ? Avoiding the activity that caused rectal trauma. ? Heat or laser therapy for persistent bleeding. ? A dilation procedure to enlarge a narrowed rectum. ? Surgery to repair the damaged rectal lining. This is rare. If your proctitis was caused by an STD, your health care provider may test you for infection again 3 months after treatment. Follow these instructions at home: Medicines ? Take [id number] and prescription medicines only as told by your health care provider. ? If you were prescribed an antibiotic medicine, take it as told by your health care provider. Do notstop using the antibiotic even if you start to feel better. General instructions ? Take sitz baths as told by your health care provider. A sitz bath is a shallow, warm water bath that is taken while you are sitting down. The water should only come up to your hips and should cover your buttocks. ? Try to avoid eating right before bedtime. ? You may need to take actions to prevent or treat constipation, such as: ? Drink enough fluid to keep your urine pale yellow. ? Take [id number] or prescription medicines. ? Eat foods that are high in fiber, such as beans, whole grains, and fresh fruits and vegetables. ? Limit foods that are high in fat and processed sugars, such as fried or sweet foods. ? Keep all follow-up visits as told by your health care provider. This is important. Contact a health care provider if: ? Your symptoms do not improve with treatment. ? Your symptoms get worse. ? You have a fever. Get help right away if you: ? Have blood in your stool or blood coming from the rectal area. Summary ? Proctitis is swelling and soreness (inflammation) of the lining of the rectum. ? Inflammation from proctitis causes pain and discomfort. ? This condition may be caused by STDs, infection, trauma, ulcerative colitis, radiation therapy, or antibiotic therapy. ? Proctitis may be treated with sitz baths, medicines, heat or laser therapy, or dilation. Rarely, this condition may be treated with surgery. This information is not intended to replace advice given to you by your health care provider. Make sure you discuss any questions you have with your health care provider. Document Revised: 03/25/2021 Document Reviewed: 01/04/2019 Else[employer] Patient Education ?? 2021 [employer] Tests Performed Medications and Immunizations Administered Given acetaminophen, 650 mg, Oral NS bolus, 1000 mL, IV Piggyback NS bolus, 1000 mL, IV Piggyback Zofran, 4 mg, IV Push Lab Test Name Test Result Date/Time WBC 5.5 x10^3/mcL 04/30/2022 05:11 EST RBC 3.6 x10^6/mcL 04/30/2022 05:11 EST Hgb 11.5 g/dL 04/30/2022 05:11 EST Hct 35.3 % 04/30/2022 05:11 EST MCV 97.5 04/30/2022 05:11 EST MCH 31.8 pg 04/30/2022 05:11 EST MCHC 32.6 g/dL 04/30/2022 05:11 EST RDW-CV 13.5 % 04/30/2022 05:11 EST Platelets 118 x10^3/mcL 04/30/2022 05:11 EST Neutro Auto 48.6 % 04/30/2022 05:11 EST Lymph Auto 33.9 % 04/30/2022 05:11 EST [place] Auto 9.6 % 04/30/2022 05:11 EST Eos, Auto 6.0 % 04/30/2022 05:11 EST Basophil Auto 1.5 % 04/30/2022 05:11 EST Imm Gran Auto 0.4 % 04/30/2022 05:11 EST Neutro Absolute 2.7 x10^3/mcL 04/30/2022 05:11 EST Sodium Level 136 mmol/L 04/30/2022 12:55 EST Potassium Level 4.6 mmol/L 04/30/2022 12:55 EST Chloride Level 102 mmol/L 04/30/2022 12:55 EST CO2 27 mmol/L 04/30/2022 12:55 EST Alk Phos 75 unit/L 04/30/2022 05:11 EST AST 15 unit/L 04/30/2022 05:11 EST ALT 10 unit/L 04/30/2022 05:11 EST BUN 51 mg/dL 04/30/2022 12:55 EST Glucose Level 197 mg/dL 04/30/2022 12:55 EST Creatinine Level 2.83 mg/dL 04/30/2022 12:55 EST eGFR AA 17 04/30/2022 12:55 EST eGFR Non-AA 17 04/30/2022 12:55 EST Calcium Level 9.9 mg/dL 04/30/2022 12:55 EST Protein Total 7.2 g/dL 04/30/2022 05:11 EST Albumin Level 3.6 g/dL 04/30/2022 05:11 EST Bilirubin Total 0.4 mg/dL 04/30/2022 05:11 EST Lipase Level 20 unit/L 04/30/2022 05:11 EST Patient/Staying Machine Operator Signature Patient Name:MARIA INES BROOKS I have received this information and my questions have been answered. Patient/Staying Machine Operator Name: Patient/Staying Machine Operator Signature: Relationship to Patient: Witness Name/Signature: Date: Electronically Signed on: 04/30/2022 13:43 ESTSigned by:[facility] Discharge summary * Vikki Bernard: PERFORM Event Display: Discharge Note Authored Date: * Vikki Bernard: PERFORM Event Display: Discharge Note Authored Date: Diagnosis: 1. Proctitis Comment: Diagnosis: Abdominal pain Comment: Diagnosis: Emesis Comment: Diagnosis: Nausea Comment: Electronically Signed on 04/30/22 02:16 PM Vikki Bernard Patient Care team information Personnel Name: Jeannine Fernandes MD Address: Address: [place] [address]- [place] Name: Noreen York
--- OUTSIDE RECORDS SUMMARY | 2022-12-19 08:41 | XMS_ITS | Continuity of Care Document ---
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 Name Role Phone Jeannine Fernandes Primary Care Physician Noreen York Unavailable Unavailable Encounter [id number] Date(s): 06/09/22 - 06/09/[address] [address] Discharge Disposition: Home or Self Care Attending Physician: Contreras Salas MD Admitting Physician: Contreras Salas MD Allergies, Adverse Reactions, [...] * Urinalysis Notify Lab 05/07/22 Functional Status 06/09/22 Other exposure to Infectious Disease Non e [...] Daily, # 30 tab, 5 Refill(s), Pharmacy: [facility], 161, cm, 05/12/2220:25:00 EST, Height/Length Dosing, 77.5, kg, 05/12/22 20:25:00 EST, Weight Dosing Start Date: 05/15/22 Status: Ordered apixaban 5 mg oral tablet 5 mg = 1 tab, Oral, BID, # 60 tab, 2 Refill(s), Pharmacy: [facility], 168, cm, 05/16/22 21:31:00 EST, Height/Length Dosing, 70, kg, 05/16/22 21:31:00 EST, Weight Dosing Start Date: 06/04/22 Status: Ordered aspirin 81 mg oral tablet, chewable 81 mg = 1 tab, Oral, Daily, # 90 tab, 1 Refill(s), Pharmacy: [facility], 161, cm, 05/12/22 20:25:00 EST, Height/Length Dosing, 77.5, kg, 05/12/22 20:25:00 EST, Weight Dosing Start Date: 05/15/22 Status: Ordered atorvastatin 40 mg oral tablet 40 mg = 1 tab, Oral, Daily, # 90 tab, 0 Refill(s), Pharmacy: [facility], 168, cm, 05/16/22 21:31:00 EST, Height/Length Dosing, 70, kg, 05/16/22 21:31:00 EST, Weight Dosing Start Date: 06/04/22 Status: Ordered BD UF MINI PEN NEEDLE [id number] BD UF MINI PEN NEEDLE [id number], See Instructions, USE DIRECTED FOUR TIMES A DAY NEEDED, # 100 EA, 3 Refill(s), Pharmacy: [facility] Start Date: 02/24/22 Status: Ordered BD UF Pen Needle Mini [id number] BD UF Pen Needle Mini [id number], Use one needle for each injection daily. (current Injections are 4 times daily), Supply, See instructions, # 100 EA, 2 Refill(s), Pharmacy: [facility] Start Date: 01/16/22 Status: Ordered Eliquis [...] Daily, # 90 tab, 0 Refill(s), Pharmacy: [facility], 168, cm, 06/09/22 9:44:00 EST, Height/Length [...] stool, # 60 cap, 2 Refill(s), Pharmacy: [facility], 168, cm, 05/16/22 21:31:00 EST, Height/Length Dosing, 70, kg, 05/16/22 21:31:00 EST, Weight Dosing Start Date: 06/04/22 Status: Ordered magnesium oxide 400 mg (241.3 mg elemental magnesium) oral tablet 400 mg = 1 tab, Oral, BID, # 60 tab, 3 Refill(s), Pharmacy: [facility], 168, cm, 05/16/22 21:31:00 EST, Height/Length Dosing, [...] DAY, # 90 tab, 3 Refill(s), Pharmacy: [facility] Start Date: 01/01/22 Status: Ordered mupirocin 2% topical ointment See Instructions, APPLY A SMALL AMOUNT TOPICALLY TO AFFECTED AREA(S) THREE TIMES A DAY, # 22 g, 1 Refill(s), Pharmacy: [facility] Start Date: 03/23/22 Status: Ordered nitroglycerin 0.4 mg sublingual tablet SL, every 5 min, not to exceed 3 doses/15 min--if pain persists, seek medical attention Start Date: 12/17/21 Status: Ordered NovoLOG FlexPen 100 units/mL injectable solution 5 units =, Subcutaneous, TID(AC), # 10 mL, 0 Refill(s), Pharmacy: [facility], 168, cm, 05/16/22 21:31:00 EST, Height/Length Dosing, [...] DAILY NEEDED, # 30 tab,0 Refill(s), Pharmacy: [facility], 168, cm, 05/16/22 21:31:00 EST, Height/Length Dosing, [...] Completed Oophorectomy- left 06/06/03 Comple mason Appendectomy 12/31/79 Completed Oophorectomy-right 06/06/79 Comple mason Cholecystectomy 06/06/73 Completed Total abdominal hysterectomy 06/06/71 Completed 1With biopsy for H Pylori, negative Results Laboratory List Name Date ABO/Rh 06/09/22 Antibody Screen Gel 06/09/22 Red Blood Cells 06/09/22 Troponin-I 06/09/22 Magnesium Level 06/09/22 Lactic Acid 06/09/22 Blood Gas Venous 06/09/22 CBC w/o Diff (CBC) 06/09/22 Comprehensive Metabolic Panel (CMP) D-Dimer 06/09/22 Folate Level 06/09/22 Reticulocyte Count Automated 06/09/22 Troponin-I 06/09/22 Vitamin B12 Level 06/09/22 Most recent to oldest [Reference Range]: 1 2 WBC [5.0-10.0 x10^3/mcL] 5.6 x10^3/mcL (06/09/22 9:51 AM) RBC [4.1-5.3 x10^6/mcL] 2.7 x10^6/mcL *LOW* (06/09/22 9:51 AM) BUN [7-18 mg/dL] 56 mg/dL *HI* (06/09/22 9:51 AM) ABO/Rh Type A POS *Unknown* (06/09/22 12:30 PM) Glucose Level [74-106 mg/dL] 149 mg/dL *HI* (06/09/22 9:51 AM) Potassium Level [3.5-5.1 mmol/L] 4.5 mmo l/L (06/09/22 9:51 AM) MCV [80.0-96.0] 98.5 *HI* (06/09/22 9:51 AM) CO2 Total Venous 28 mmol/L *NA* (06/09/22 9:51 AM) HCO3 Venous [19-25 mEq/L] 27 mEq/L *HI* (06/09/22 9:51 AM) AST [15-37 unit/L] 15 unit/L (06/09/22 9:51 AM) ALT [14-59 unit/L] 9 unit/L *LOW* (06/09/22 9:51 AM) MCHC [31.0-35.0 g/dL] 32.0 g/dL (06/09/22 9:51 AM) Troponin-I [0.0-51.4 pg/mL] 28.4 pg/mL (06/09/22 10:51 AM) 27.1 pg/mL (06/09/22 9:51 AM) Sodium Level [136-145 mmol/L] 141 mmol/L (06/09/22 9:51 AM) Folate Level [8.6-58.9 ng/mL] 8.0 ng/mL *LOW* (06/09/22 9:51 AM) Hct [37.0-47.0 %] 26.9 % *LOW* (06/09/22 9:51 AM) Calcium Level [8.5-10.1 mg/dL] 11.9 mg/d L *HI* (06/09/22 9:51 AM) Albumin Level [3.4-5.0 g/dL] 3.2 g/dL *LOW* (06/09/22 9:51 AM) Protein Total [6.4-8.2 g/dL] 6.9 g/dL (06/09/22 9:51 AM) MCH [26.0-32.0 pg] 31.5 pg (06/09/22 9:51 AM) Magnesium Level [1.8-2.4 mg/dL] 1.8 mg/d L (06/09/22 10:31 AM) Bilirubin Total [0.2-1.0 mg/dL] 0.4 mg/d L (06/09/22 9:51 AM) Hgb [12.0-16.0 g/dL] 8.6 g/dL *LOW* (06/09/22 9:51 AM) B12 Level [193-986 pg/mL] 999 pg/mL *HI* (06/09/22 9:51 AM) Alk Phos [46-146 unit/L] 69 unit/L (06/09/22 9:51 AM) pCO2 Romain [33-47 mmHg] 44 mmHg (06/09/22 9:51 AM) Platelets [130-450 x10^3/mcL] 145 x10^3/ mcL (06/09/22 9:51 AM) CO2 [21-32 mmol/L] 26 mmol/L (06/09/22 9:51 AM) Reticulocyte % [0.5-2.4 %] 3.6 % *HI* (06/09/22 9:51 AM) Lactic Acid Lvl [0.7-2.1 mmol/L] 2.2 mmo l/L *HI* (06/09/22 9:56 AM) pO2 Romain 32 mmHg *NA* (06/09/22 9:51 AM) pH Romain [7.32-7.43 pH unit(s)] 7.39 pH un it(s) (06/09/22 9:51 AM) O2 Sat Romain 62 % *NA* (06/09/22 9:51 AM) eGFR Non-AA [>=60] 15 *LOW* (06/09/22 9:51 AM) eGFR AA [>=60] 15 *LOW* (06/09/22 9:51 AM) Base Excess Venous 1.4 mmol/L *NA* (06/09/22 9:51 AM) Chloride Level [98-107 mmol/L] 104 mmol/ L (06/09/22 9:51 AM) RBC Product Ready Done (06/09/22 12:30 PM) RDW-CV [11.7-17.0 %] 14.4 % (06/09/22 9:51 AM) Creatinine Level [0.55-1.02 mg/dL] 3.02 mg/dL *HI* (06/09/22 9:51 AM) Antibody Screen Gel Negative ABSC (06/09/22 12:30 PM) D Dimer, (Quant.) [0.00-0.50 mg/L] 0.63 mg/L *HI* (06/09/22 9:51 AM) Vital Signs Most recent to oldest [Reference Range]: 1 2 3 Temperature Temporal Artery [36-38 Deg C] 35.9 Deg C *LOW* (06/09/22 11:08 AM) 36.1 Deg C (06/09/22 9:33 AM) Peripheral Pulse Rate [60-100 bpm] 60 bpm (06/09/22 1:32 PM) 55 bpm *LOW* (06/09/22 12:45 PM) 54 bpm *LOW* (06/09/22 11:45 AM) Heart Rate Monitored [60-100 bpm] 56 bpm *LOW* (06/09/22 1:32 PM) 55 bpm *LOW* (06/09/22 12:45 PM) 55 bpm *LOW* (06/09/22 11:45 AM) Respiratory Rate [12-24 br/min] 11 br/min *LOW* (06/09/22 12:45 PM) 16 br/min (06/09/22 11:45 AM) 16 br/min (06/09/22 11:08 AM) Blood Pressure [90-140/60-90 mmHg] 128/52mmHg (06/09/22 1:32 PM) 128/67mmHg (06/09/22 12:45 PM) 129/48mmHg (06/09/22 11:45 AM) Weight Dosing 69.40 kg (06/09/22 9:44 AM) Weight Estimated 69.40 kg (06/09/22 9:33 AM) Height/Length Dosing 168.000 cm (06/09/22 9:44 AM) Height/Length Estimated 168.000 cm (06/09/22 9:33 AM) Social History Social History Type Response Tobacco Never tobacco user T obacco Use:. Sex Female EKG study * Event Display: Telemetry Strips Please click on link to view image. * Clarice Rondon: PERFORM Event Display: Electrocardiogram EKG Authored Date: [id number] Physician Emergency department Note * Contreras Salas MD: PERFORM Event Display: ED Note Physician Authored Date: [id number] MARIA INES BROOKS :1945 Age:77 years Sex:Female Visit Date:06/09/2022 Primary Care Physician: Jeannine Fernandes MD Basic Information Time Seen: Contreras Salas MD / 06/09/2022 09:46 Chief Complaint pt came in by EMS for weakness, pt states that she is also having some chest pain and difficulty breathing. History Of Present Illness: .Presenting concern is weakness and chest pain. ??Time of onset is 5:30 AM which would be??4 hours prior to admission. ??Location is left anterior chest.?? Quality is pushing and sharp. ??Radiation is none.?? Precipitating factors are not identified though patient says she had a bad dream.?? Made worse by deep breath. ??Current intensity is 9/10.?? Patient reports having prior similar episodes associated with bad dreams.?? Patient lives alone with her cat Mr. Cool Review of Systems: Review of systems is negative for fever, abdominal pain, nausea, vomiting and diarrhea, urinary symptoms, abnormal bleeding, headache. ??Review of systems is positive for??shortness of breath,??mild??epistaxis. Physical Exam Vitals & Measurements T:??35.9?C ??(Temporal Artery)?? HR:??54??(Peripheral)?? HR:??55??(Monitored)?? RR:??16?? BP:??129/48?? SpO2:??98%?? HT:??168.000??cm?? WT:??69.40??kg??(Estimated)?? Pain Score:??0?? O2 Therapy:??Room air?? Patient is frail. ??She is appears in no acute distress. ??She converses normally. ??She establishes maintains eye contact.?? Respirations are normal. ??There are rales at the right base.?? Heart auscultation demonstrates a systolic ejection murmur.?? There is tenderness over the left anterior chest. ??Abdomen is soft and nontender.?? Extremities show some mild edema. ??Skin is pale.?? Mental status is normal.?? Rectal exam reveals heme positive stool. Procedure No Qualifying Data Assessment/Plan Ordered: folate, 1 mg = 0.2 mL, IV Push, Soln-IV, Once, First Dose: 06/09/22 12:09:00 EST, Stop Date: 06/09/22 12:09:00 EST, Physician Stop, STAT folic acid 1 mg oral tablet, 1 mg = 1 tab, Oral, Daily, # 90 tab, 0 Refill(s), Pharmacy: [facility], 168, cm, 06/09/22 9:44:00 EST, Height/Length Dosing, 69.4, kg, 06/09/22 9:44:00 EST,Weight Dosing ABO/Rh, Blood, Stat, 06/09/22 12:08:44 EST, Once, Nurse collect Antibody Screen Gel, Blood, Routine, 06/09/22 12:07:00 EST, Once, Nurse collect CV EKG ED, 06/09/22 9:46:00 EST, Routine, Reason: Chest Pain, Stop date and time 06/09/22 9:46:00 EST, ORD_SET_REQ_DT_RANGE, Cesar Internal Person Id Discharge Patient, 06/09/22 12:16:00 EST, Home Independently, Constant Indicator Red Blood Cells, Stat, Print Label, 1, Low Hgb Angina Troponin-I, Blood, Stat, 06/09/22 10:47:00 EST, Once, Nurse collect Discharge diagnoses from the emergency department are??GI blood loss, adverse reaction to??apixaban,??folate deficiency,??chronic renal failure. Medication Reconciliation New Prescription folic acid (folic acid 1 mg oral tablet)1 tab Oral (given by mouth) every day. Refills: 0. ?? Unchanged acetaminophen (acetaminophen 500 mg oral tablet)2 tab Oral (given by mouth) every 6 hours as needednot specified. ?? amLODIPine (amLODIPine 5 mg oral tablet)1 tab Oral (given by mouth) every day. Refills: 5. ?? apixaban (apixaban 5 mg oral tablet)1 tab Oral (given by mouth) 2 times a day. Refills: 2. ?? apixaban (Eliquis 5 mg oral tablet)1 tab Oral (given by mouth) 2 times a day. ?? ascorbic acid (Vitamin C TR 500 mg oral capsule)1 Capsules Oral (given by mouth) every day. ?? aspirin (aspirin 81 mg oral tablet, chewable)1 tab Oral (given by mouth) every day. Refills: 1. ?? atorvastatin (atorvastatin 40 mg oral tablet)1 tab Oral (given by mouth) every day. Refills: 0. ?? Durable Medical Equipment for Prescription (BD UF Pen Needle Mini [id number])Use one needle for each injection daily. (current Injections are 4 times daily). Refills: 2. ?? Durable Medical Equipment for Prescription (All [facility] Ultra Blue Test Strips)use as directed four [...] the skin) every night at bedtime. ?? loperamide (loperamide 2 mg oral capsule)1 Capsules Oral (given by mouth) every 4 hours as needed as needed for loose stool. Refills: 2. ?? magnesium oxide (magnesium oxide 400 mg (241.3 mg elemental magnesium) oral tablet)1 tab Oral (given by mouth) 2 times a day. Refills: 3. ?? melatonin (Melatonin 3 mg oral tablet)1 tab Oral (given by mouth) every night at bedtime. ?? memantine (memantine 5 mg oral tablet)1 [...] min--if pain persists, seek medical attention. ?? Other Prescription (BD UF MINI PEN NEEDLE [id number])USE DIRECTED FOUR TIMES A DAY NEEDED. Refills: [...] Capsules Oral (given by mouth) every day. Problem List/Past Medical History Ongoing Anemia Atrial thrombus Atrophic gastritis Chest pain Chronic [...] (06/07/2003)???Appendectomy (06/07/1979)???Oophorectomy-right (06/1979)???Cholecystectomy (06/07/1973)???Total abdominal hysterectomy (06/07/1971) Allergies azithromycin??(Skin rash) codeine??(Rapid heart beat) Social [...] age: Unknown. Cause of : Lab Results Blood Gases?? LATEST RESULTS?? pH Romain?? 06/09/22 09:51?? 7.39?? pCO2 Romain?? 06/09/22 09:51?? 44?? pO2 Romain?? 06/09/22 09:51?? 32?? HCO3 Venous?? 06/09/22 09:51?? 27 ??High?? O2 Sat Romain?? 06/09/22 09:51?? 62?? CO2 Total Venous?? 06/09/22 09:51?? 28?? Base Excess Venous?? 06/09/22 09:51?? 1.4? CBC and Differential?? LATEST RESULTS?? HISTORICAL RESULTS?? WBC?? 06/09/22 09:51?? 5.6?? 05/16/22?? 6.1?? RBC?? 06/09/22 09:51?? 2.7 ??Low?? 05/16/22?? 3.6 ??Low?? Hgb?? 06/09/22 09:51?? 8.6 ??Low?? 05/16/22?? 11.1 ??Low?? Hct?? 06/09/22 09:51?? 26.9 ??Low?? 05/16/22?? 34.3 ??Low?? MCV?? 06/09/22 09:51?? 98.5 ??High?? 05/16/22?? 96.3 ??High?? MCH?? 06/09/22 09:51?? 31.5?? 05/16/22?? 31.2?? MCHC?? 06/09/22 09:51?? 32.0?? 05/16/22?? 32.4?? RDW-CV?? 06/09/22 09:51?? 14.4?? 05/16/22?? 13.7?? Platelets?? 06/09/22 09:51?? 145?? 05/16/22?? 131? Miscellaneous Hematology?? LATEST RESULTS?? Reticulocyte %?? 06/09/22 09:51?? 3.6 ??High? Coagulation?? LATEST RESULTS?? D Dimer, (Quant.)?? 06/09/22 09:51?? 0.63 ??High? Routine Chemistry?? LATEST RESULTS?? HISTORICAL RESULTS?? Sodium Level?? 06/09/22 09:51?? 141?? 05/16/22?? 140?? Potassium Level?? 06/09/22 09:51?? 4.5?? 05/16/22?? 4.6?? Chloride Level?? 06/09/22 09:51?? 104?? 12/10/22?? 105?? CO2?? 06/09/22 09:51?? 26?? 05/16/22?? 25?? Alk Phos?? 06/09/22 09:51?? 69?? 05/12/22?? 73?? AST?? 06/09/22 09:51?? 15?? 05/12/22?? 10 ??Low?? ALT?? 06/09/22 09:51?? 9 ??Low?? 05/12/22?? 9 ??Low?? BUN?? 06/09/22 09:51?? 56 ??High?? 05/16/22?? 42 ??High?? Glucose Level?? 06/09/22 09:51?? 149 ??High?? 05/16/22?? 126 ??High?? Creatinine Level?? 06/09/22 09:51?? 3.02 ??High?? 05/16/22?? 2.49 ??High?? eGFR AA?? 06/09/22 09:51?? 15 ??Low?? 05/16/22?? 19 ??Low?? eGFR Non-AA?? 06/09/22 09:51?? 15 ??Low?? 05/16/22?? 19 ??Low?? Calcium Level?? 06/09/22 09:51?? 11.9 ??High?? 05/16/22?? 11.0 ??High?? Protein Total?? 06/09/22 09:51?? 6.9?? 05/12/22?? 7.2?? Albumin Level?? 06/09/22 09:51?? 3.2 ??Low?? 05/12/22?? 3.5?? Bilirubin Total?? 06/09/22 09:51?? 0.4?? 05/12/22?? 0.6?? Lactic Acid Lvl?? 06/09/22 09:56?? 2.2 ??High? Magnesium Level?? 06/09/22 10:31?? 1.8?? 05/15/22?? 1.6 ??Low? Cardiac Isoenzymes?? LATEST RESULTS?? HISTORICAL RESULTS?? Troponin-I?? 06/09/22 09:51?? 27.1?? 05/16/22?? 28.3? Vitamins?? LATEST RESULTS?? Folate Level?? 06/09/22 09:51?? 8.0 ??Low?? B12 Level?? 06/09/22 09:51?? 999 ??High? Electronically Signed on 06/09/22 12:17 PM Contreras Salas MD Emergency department Discharge instructions * Contreras Salas MD: PERFORM Event Display: ED Discharge Information Authored Date: [id number] CECILIA MARIA INES G :1945 Age:77 years Sex:Female Visit Date:06/09/2022 Primary Care Physician: Jeannine Fernandes MD Discharge Instructions We would like to thank you for allowing us to assist you with your healthcare needs. The following includes patient education materials and information regarding your injury/illness. Discharge Vitals Temperature??(Temporal Artery) 96.6 ??F (35.9 ??C) Heart Rate??(Peripheral) 54 Heart Rate??(Monitored) 55 Respiratory Rate?? 16 Blood Pressure?? 129/48?? Height?? 66.14 in (168.000 cm) Weight??(Estimated) 153.03 lb (69.40 kg) Allergies azithromycin??(Skin rash) codeine??(Rapid heart beat) What to Do Next Instructions from Your Care Team Stop taking the??blood thinner for the blood clot in your heart.?? The pill may be called??apixabanor Eliquis.?? Take 1 folate tablet daily. ?? Dr. Vogt will be calling you for follow-up tomorrow or??on . ?? Contreras Salas MD Upcoming Scheduled Appointments Wednesday 11:30 AM EST [...] Much When Why Instructions Next Dose New folic acid (folic acid 1 mg oral tablet) 1 tab Oral (given by mouth) Every day Pickup at [facility] Unchanged acetaminophen (acetaminophen 500 mg oral tablet) 2 tab Oral (given by mouth) Every 6 hours as needed for not specified Unchanged amLODIPine (amLODIPine 5 mg oral tablet) 1 tab Oral (given by mouth) Every day Unchanged apixaban (apixaban 5 mg oral tablet) 1 tab Oral (given by mouth) 2 times a day Atrial thrombus Unchanged apixaban (Eliquis 5 mg oral tablet) 1 tab Oral (given by mouth) 2 times a day Unchanged ascorbic acid (Vitamin C TR 500 mg oral capsule) 1 Capsules Oral (given by mouth) Every day Unchanged aspirin (aspirin 81 mg oral tablet, chewable) 1 tab Oral (given by mouth) Every day Unchanged atorvastatin (atorvastatin 40 mg oral tablet) 1 tab Oral (given by mouth) Every day Unchanged Durable Medical Equipment for Prescription (BD UF Pen Needle Mini [id number]) See instructions DM2 (diabetes mellitus, type 2) [...] the skin) Every night at bedtime Unchanged loperamide (loperamide 2 mg oral capsule) [...] Other Prescription (BD UF MINI PEN NEEDLE [id number]) See instructions USE DIRECTED FOUR TIMES A [...] Capsules Oral (given by mouth) Every day Pharmacy Information [facility]: [address] [place], [place] [id number] [phone] Tests Performed Lab Test Name Test Result Date/Time pH Romain 7.39 pH unit(s) 06/09/2022 09:51 EST pCO2 Romain 44 mmHg 06/09/2022 09:51 EST pO2 Romain 32 mmHg 06/09/2022 09:51 EST HCO3 Venous 27 mEq/L 06/09/2022 09:51 EST O2 Sat Romain 62 % 06/09/2022 09:51 EST CO2 Total Venous 28 mmol/L 06/09/2022 09:51 EST Base Excess Venous 1.4 mmol/L 06/09/2022 09:51 EST WBC 5.6 x10^3/mcL 06/09/2022 09:51 EST RBC 2.7 x10^6/mcL 06/09/2022 09:51 EST Hgb 8.6 g/dL 06/09/2022 09:51 EST Hct 26.9 % 06/09/2022 09:51 EST MCV 98.5 06/09/2022 09:51 EST MCH 31.5 pg 06/09/2022 09:51 EST MCHC 32.0 g/dL 06/09/2022 09:51 EST RDW-CV 14.4 % 06/09/2022 09:51 EST Platelets 145 x10^3/mcL 06/09/2022 09:51 EST Reticulocyte % 3.6 % 06/09/2022 09:51 EST D Dimer, (Quant.) 0.63 mg/L 06/09/2022 09:51 EST Sodium Level 141 mmol/L 06/09/2022 09:51 EST Potassium Level 4.5 mmol/L 06/09/2022 09:51 EST Chloride Level 104 mmol/L 06/09/2022 09:51 EST CO2 26 mmol/L 06/09/2022 09:51 EST Alk Phos 69 unit/L 06/09/2022 09:51 EST AST 15 unit/L 06/09/2022 09:51 EST ALT 9 unit/L 06/09/2022 09:51 EST BUN 56 mg/dL 06/09/2022 09:51 EST Glucose Level 149 mg/dL 06/09/2022 09:51 EST Creatinine Level 3.02 mg/dL 06/09/2022 09:51 EST eGFR AA 15 06/09/2022 09:51 EST eGFR Non-AA 15 06/09/2022 09:51 EST Calcium Level 11.9 mg/dL 06/09/2022 09:51 EST Protein Total 6.9 g/dL 06/09/2022 09:51 EST Albumin Level 3.2 g/dL 06/09/2022 09:51 EST Bilirubin Total 0.4 mg/dL 06/09/2022 09:51 EST Lactic Acid Lvl 2.2 mmol/L 06/09/2022 09:56 EST Magnesium Level 1.8 mg/dL 06/09/2022 10:31 EST Troponin-I 27.1 pg/mL 06/09/2022 09:51 EST Folate Level 8.0 ng/mL 06/09/2022 09:51 EST B12 Level 999 pg/mL 06/09/2022 09:51 EST Patient/Communications Station Manager Signature Patient Name:MARIA INES BROOKS I have received this information and my questions have been answered. Patient/Communications Station Manager Name: Patient/Communications Station Manager Signature: Relationship to Patient: Witness Name/Signature: Date: Electronically Signed on: 06/09/2022 12:17 ESTSigned by:[facility] Emergency department Note * Clarice Rondon: PERFORM Event Display: ED Notes Authored Date: [id number] * Clarice Rondon: PERFORM Event Display: ED Notes Authored Date: [id number] Patient Care team information Personnel Name: Jeannine Fernandes MD Address: Address: [place] [address]- Name: Noreen York
--- OUTSIDE RECORDS SUMMARY | 2022-12-19 08:41 | XMS_ITS | Continuity of Care Document ---
Author Name Unknown Organization [facility] Address [address] [place] [address] Care Team Providers Care Taping Foreman Name Role Phone Jeannine Fernandes Primary Care Physician Noreen York Unavailable Unavailable Encounter [facility] Date(s): 11/24/22 - 11/24/22 [facility] [address] [place] [address] Discharge Disposition: Home Allergies, Adverse Reactions, Alerts Substance Reaction Severity Status codeine Rapid heart beat Unknown Active azithromycin Skin rash Unknown Active Assessment and Plan Future Appointments Future Scheduled Tests Laboratory* CBC w/ Diff 11/24/22 * Comprehensive Metabolic Panel 11/24/22 * Magnesium Level 05/22/22 * Calcium Level Ionized 11/24/22 Radiology* NM Bone Spect 11/24/22 Immunizations Given and Recorded Vaccine Date Status [...] Daily, # 90 tab, 3 Refill(s), Pharmacy: [facility], 168, cm, 09/23/22 17:19:00 EDT, Height/Length Dosing, 64.1, kg, 09/23/22 17:19:00 EDT, Weight Dosing Start Date: 10/20/22 Status: Ordered aspirin 81 mg oral tablet, chewable 1 tab, Oral, Daily, # 28 EA, 11 Refill(s), Pharmacy: [id number], 168, cm, 11/11/22 10:49:00 EDT, Height/Length Dosing, 62, kg, 11/11/22 10:49:00 EDT, Weight Dosing Start Date: 11/16/22 Status: Ordered atorvastatin 40 mg oral tablet 1 tab, Oral, Daily, # 84 tab, 0 Refill(s), Pharmacy: [facility], 160, cm, 06/14/22 22:46:00 EST, Height/Length Dosing, 83, kg, 06/14/22 22:46:00 EST, Weight Dosing Start Date: 08/24/22 Status: Ordered BD Pen Needle Mini U/F 31G X 5 MM MISC BD Pen Needle Mini U/F 31G X 5 MM MISC, See Instructions, USE FOUR TIMES A DAY DIRECTED, # 100 EA, 2 Refill(s), Pharmacy: [facility], 160, cm, 06/14/22 22:46:00 EST, Height/Length Dosing, 83, kg, 06/14/22 22:46:00 EST, Weight Dosing Start Date: 07/26/22 Status: Ordered BD UF MINI PEN NEEDLE [id number] BD UF MINI PEN NEEDLE [id number], See Instructions, USE DIRECTED FOUR TIMES A DAY NEEDED, # 100 EA, 3 Refill(s), Pharmacy: [id number] Start Date: 02/24/22 Status: Ordered BD UF Pen Needle Mini [id number] BD UF Pen Needle Mini [id number], Use one needle for each injection daily. (current Injections are 4 times daily), Supply, See instructions, # 100 EA, 2 Refill(s), Pharmacy: [email or web address] Start Date: 01/16/22 Status: Ordered Colace 100 mg oral capsule 100 mg = 1 cap, Oral, Daily, PRN as needed for constipation, # 90 cap, 0 Refill(s), Pharmacy: [facility], 168, cm, 09/23/22 17:19:00 EDT, Height/Length Dosing, 64.1, kg, 09/23/22 17:19:00 EDT, Weight Dosing Start Date: 10/13/22 Status: Ordered ferrous gluconate 324 mg (38 mg elemental iron) oral tablet 1 tab, Oral, Daily, # 84 tab, 3 Refill(s), Pharmacy: [facility], 168, cm, 11/11/22 10:49:00 EDT, Height/Length Dosing, 62, kg, 11/11/22 10:49:00 EDT, Weight Dosing Start Date: 11/16/22 Status: Ordered folic acid 1 mg oral tablet 1 tab, Oral, Daily, # 84 tab, 3 Refill(s), Pharmacy: [facility], 168, cm, 11/11/22 10:49:00 EDT, Height/Length Dosing, 62, kg, 11/11/22 10:49:00 EDT, Weight Dosing Start Date: 11/16/22 Status: Ordered Glucerna Glucerna, Twice a day, Supply, See instructions, # 60 EA, 3 Refill(s), Pharmacy: [facility] Start Date: 07/13/22 Status: Ordered HumaLOG KwikPen 100 units/mL injectable solution 5 units =, Subcutaneous, TID(AC), # 3 mL, 3 Refill(s), [place] [facility], [place], cm,10/29/22 16:36:00 EDT, Height/Length Dosing, 64.86, kg, 10/29/22 16:36:00 EDT, Weight Dosing Start Date: 11/09/22 Status: Ordered Levemir FlexTouch 100 units/mL subcutaneous solution 15 units =, Subcutaneous, every night at bedtime Start Date: 05/13/22 Status: Ordered magnesium oxide 400 mg (241.3 mg elemental magnesium) oral tablet 1 tab, Oral, BID, # 56 tab, 3 Refill(s), Pharmacy: [facility] [id number], 168, cm, 09/01/22 14:46:00 EDT, Height/Length Dosing, 66.2, kg, 09/01/22 14:46:00 EDT, Weight Dosing Start Date: 09/22/22 Status: Ordered Melatonin 3 mg oral tablet 1 tab, Oral, every night at bedtime, # 28 tab, 3 Refill(s), Pharmacy: [facility] [id number], 168, cm, 09/01/22 14:46:00 EDT, Height/Length Dosing, 66.2, kg, 09/01/22 14:46:00 EDT, Weight Dosing Start Date: 09/22/22 Status: Ordered memantine 5 mg oral tablet 5 mg = 1 tab, Oral, BID, # 60 tab, 5 Refill(s), [place] [facility] [place], [place], 09/23/22 17:19:00 EDT, Height/Length Dosing, 64.1, kg, 09/23/22 17:19:00 EDT, Weight Dosing Start Date: 10/23/22 Status: Ordered Metoprolol Succinate ER 25 mg oral tablet, extended release 1 tab, Oral, Daily, # 28 tab, 11 Refill(s), Pharmacy: [facility] [id number], 168, cm, 11/11/22 10:49:00 EDT, Height/Length Dosing, 62, kg, 11/11/22 10:49:00 EDT, Weight Dosing Start Date: 11/16/22 Status: Ordered MiraLax oral powder for reconstitution 17 g, Oral, Daily, PRN constipation, # 12 EA, 5 Refill(s), [place] [facility] [place], 09/23/22 17:19:00 EDT, Height/Length Dosing, 64.1, kg, 09/23/22 17:19:00 EDT, Weight Dosing Start Date: 10/23/22 Status: Ordered mupirocin 2% topical ointment See Instructions, APPLY A SMALL AMOUNT TOPICALLY TO AFFECTED AREA(S) THREE TIMES A DAY, # 22 g, 1 Refill(s), Pharmacy: [email or web address] Start Date: 03/23/22 Status: Ordered nitroglycerin 0.4 mg sublingual tablet 0.4 mg = 1 tab, SL, every 5 min, not to exceed 3 doses/15 min--if pain persists, seek medical attention, # 30 tab, 0 Refill(s), [facility], 160, cm, 06/14/22 22:46:00 EST, Height/Length Dosing, 83, kg, 06/14/22 22:46:00 EST, We... Start Date: 06/18/22 Status: Ordered Onetouch Ultra Blue Test Strips Onetouch Ultra Blue Test Strips, use as directed four times daily, Supply, See instructions, # 300 EA, 12 Refill(s), [place] [facility] [place] Date: 07/27/22 Status: Ordered oxybutynin 5 mg oral tablet 5 mg = 1 tab, Oral, BID, PRN as needed for urinary discomfort, 2-3 TIMES DAILY NEEDED, # 30 tab,0 Refill(s), Pharmacy: [facility], 168, cm, 05/16/22 21:31:00 EST, Height/Length Dosing, 70, kg, 05/16/22 21:31:00 EST, Weight Dosing Start Date: 06/04/22 Status: Ordered pantoprazole 40 mg oral delayed release tablet 1 tab, Oral, Daily, # 28 tab, 11 Refill(s), Pharmacy: [facility] [id number], 168, cm, 11/11/22 10:49:00 EDT, Height/Length Dosing, 62, kg, 11/11/22 10:49:00 EDT, Weight Dosing Start Date: 11/16/22 Status: Ordered propranolol 20 mg oral tablet 3 tab, Oral, BID, # 180 tab, 5 Refill(s), [place] [facility] [place], [place], cm, 09/23/22 17:19:00 EDT, Height/Length Dosing, 64.1, kg, 09/23/22 17:19:00 EDT, Weight Dosing Start Date: 10/23/22 Status: Ordered venlafaxine 150 mg oral capsule, extended release 150 mg = 1 cap, Oral, Daily, # 90 cap, 3 Refill(s), [place] [facility] [place], cm, 08/31/22 11:50:00 EDT, Height/Length Dosing, 36.2, kg, 08/31/22 11:50:00 EDT, Weight Dosing Start Date: 09/01/22 Status: Ordered Vitamin B2 100 mg oral tablet See Instructions, TAKE 1 TABLET BY MOUTH DAILY, # 84 tab, 2 Refill(s), Pharmacy: [facility] [id number], 168, cm, 09/01/22 14:46:00 EDT, Height/Length Dosing, [...] infectious disease 13 Confirmed 03/26/21 Active 1From 04-10-2022 visit: Stable, monitor, c/w iron supplementation. 2From 07-11-2018 visit: Recommend trialing to cut down on pantoprazole as tolerated. Can cut pills in half versus alternating every other day. 3[facility] 10-03-2020 visit: Renal decline has slowed and is now presumably stable. We discussed hydration and avoidance of nephrotoxic agents. We will continue to monitor renal function. 4[facility] 09-12-2021 visit: Well controlled, c/w venlafaxine 150 mg QD. Pt was on both venlafaxine and amitrytyline but this was dc'ed due to risk of serotonin syndrome. Mood at baseline. 5Problem added by Rule (IC_COVID19_AUTO_PROBLEM) following SARS-CoV-2 (COVID- 19)/Flu/RSV (GeneXpert)from Nasal Swab collected on 31-AUG-2022 11:58:00 EDT tested positive for COVID-19. 6[facility] 09-12-2021 visit: Improvement w/ propanolol, which also [...] she is encouraged to re-establish with counsellor 10Fr 04-11-2019 visit: Cystic lesion on right kidney, [...] Physician Member Role: Informed Provider Address: Address: [address] Name: Nithin Bellamy HEADLINE WRITER Position: Physician Member Role: Nurse Practitioner Address: Address: [address] Name: Noreen York Position: Ambulatory - RN/ROPING TENDER ([facility]) Member Role: Technical Supervisor Name: Grupo Walters HEADLINE WRITER Position: Physician Member Role: Nurse Practitioner Care Team Related Persons Name: ROMAN EARL Address: [place] [address] Address: [address] [place] [phone] Name: ROMAN EARL Address: [address] [place] [address] [address]: [address] [phone]
--- OUTSIDE RECORDS SUMMARY | 2022-12-19 08:41 | XMS_ITS | Continuity of Care Document ---
Author Name Unknown Organization [facility] Address [address] [place] [address] Care Team Providers Care Commercial Loan Analyst Name Role Phone Jeannine Fernandes Primary Care Physician Noreen York Unavailable Unavailable Encounter [facility] Date(s): 11/24/22 - 11/24/22 [facility] [address] [place] [address] Discharge Disposition: Home or Self Care Attending [...] Daily, # 90 tab, 3 Refill(s), [place] [facility] [place], [place], 09/23/22 17:19:00 EDT, Height/Length Dosing, 64.1, kg, 09/23/22 17:19:00 EDT, Weight Dosing Start Date: 10/20/22 Status: Ordered aspirin 81 mg oral tablet, chewable 1 tab, Oral, Daily, # 28 EA, 11 Refill(s), Pharmacy: [id number], 168, cm, 11/11/22 10:49:00 EDT, Height/Length Dosing, 62, kg, 11/11/22 10:49:00 EDT, Weight Dosing Start Date: 11/16/22 Status: Ordered atorvastatin 40 mg oral tablet 1 tab, Oral, Daily, # 84 tab, 0 Refill(s), Pharmacy: [id number], 160, cm, 06/14/22 22:46:00 EST, Height/Length Dosing, 83, kg, 06/14/22 22:46:00 EST, Weight Dosing Start Date: 08/24/22 Status: Ordered BD Pen Needle Mini U/F 31G X 5 MM MISC BD Pen Needle Mini U/F 31G X 5 MM MISC, See Instructions, USE FOUR TIMES A DAY DIRECTED, # 100 EA, 2 Refill(s), Pharmacy: [id number], 160, cm, 06/14/22 22:46:00 EST, Height/Length Dosing, 83, kg, 06/14/22 22:46:00 EST, Weight Dosing Start Date: 07/26/22 Status: Ordered BD UF MINI PEN NEEDLE [id number] BD UF MINI PEN NEEDLE [id number], See Instructions, USE DIRECTED FOUR TIMES A DAY NEEDED, # 100 EA, 3 Refill(s), Pharmacy: [facility] Start Date: 02/24/22 Status: Ordered BD UF Pen Needle Mini [id number] BD UF Pen Needle Mini [id number], Use one needle for each injection daily. (current Injections are 4 times daily), Supply, See instructions, # 100 EA, 2 Refill(s), Pharmacy: [facility] Start Date: 01/16/22 Status: Ordered Colace 100 mg oral capsule 100 mg = 1 cap, Oral, Daily, PRN as needed for constipation, # 90 cap, 0 Refill(s), [facility], 168, cm, 09/23/22 17:19:00 EDT, Height/Length Dosing, 64.1, kg, 09/23/22 17:19:00 EDT, Weight Dosing Start Date: 10/13/22 Status: Ordered ferrous gluconate 324 mg (38 mg elemental iron) oral tablet 1 tab, Oral, Daily, # 84 tab, 3 Refill(s), [facility], 168, cm, 11/11/22 10:49:00 EDT, Height/Length Dosing, 62, kg, 11/11/22 10:49:00 EDT, Weight Dosing Start Date: 11/16/22 Status: Ordered folic acid 1 mg oral tablet 1 tab, Oral, Daily, # 84 tab, 3 Refill(s), Pharmacy: [facility], 168, cm, 11/11/22 10:49:00 EDT, Height/Length Dosing, 62, kg, 11/11/22 10:49:00 EDT, Weight Dosing Start Date: 11/16/22 Status: Ordered Glucerna Glucerna, Twice a day, Supply, See instructions, # 60 EA, 3 Refill(s), Pharmacy: [facility] Start Date: 07/13/22 Status: Ordered HumaLOG KwikPen [...] BID, # 56 tab, 3 Refill(s), Pharmacy: [facility] [id number], 168, cm, 09/01/22 14:46:00 EDT, Height/Length Dosing, 66.2, kg, 09/01/22 14:46:00 EDT, Weight Dosing Start Date: 09/22/22 Status: Ordered Melatonin 3 mg oral tablet 1 tab, Oral, every night at bedtime, # 28 tab, 3 Refill(s), Pharmacy: [facility] [facility] [address], 168, cm, 09/01/22 14:46:00 EDT, Height/Length Dosing, [...] Daily, # 28 tab, 11 Refill(s), Pharmacy: [facility] [facility] [id number], 168, cm, 11/11/22 10:49:00 EDT, Height/Length Dosing, 62, kg, 11/11/22 10:49:00 EDT, Weight Dosing Start Date: 11/16/22 Status: Ordered MiraLax oral powder for reconstitution 17 g, Oral, Daily, PRN constipation, # 12 EA, 5 Refill(s), Pharmacy: [facility], 168,cm, 09/23/22 17:19:00 EDT, Height/Length Dosing, 64.1, kg, 09/23/22 17:19:00 EDT, Weight Dosing Start Date: 10/23/22 Status: Ordered mupirocin 2% topical ointment See Instructions, APPLY A SMALL AMOUNT TOPICALLY TO AFFECTED AREA(S) THREE TIMES A DAY, # 22 g, 1 Refill(s), Pharmacy: [facility] Start Date: 03/23/22 Status: Ordered nitroglycerin 0.4 mg sublingual tablet 0.4 mg = 1 tab, SL, every 5 min, not to exceed 3 doses/15 min--if pain persists, seek medical attention, # 30 tab, 0 Refill(s), Pharmacy: [facility] [place], 160, cm, 06/14/22 22:46:00 EST, Height/Length [...] DAILY NEEDED, # 30 tab,0 Refill(s), Pharmacy: [facility] [place], 168, cm, 05/16/22 21:31:00 EST, Height/Length Dosing, 70, kg, 05/16/22 21:31:00 EST, Weight Dosing Start Date: 06/04/22 Status: Ordered pantoprazole 40 mg oral delayed release tablet 1 tab, Oral, Daily, # 28 tab, 11 Refill(s), Pharmacy: [facility] [id number], 168, cm, 11/11/22 10:49:00 EDT, Height/Length Dosing, [...] DAILY, # 84 tab, 2 Refill(s), Pharmacy: [facility] [facility] [id number], 168, cm, 09/01/22 14:46:00 EDT, Height/Length Dosing, [...] Pylori, negative Results Laboratory List Name Date Lactic Acid 11/24/22 Troponin-I 11/24/22 Blood Gas Venous 11/24/22 CBC w/ Diff 11/24/22 Comprehensive Metabolic Panel (CMP) 11/24 Lactic Acid 11/24/22 Troponin-I 11/24/22 Automated Diff 11/24/22 Most recent to oldest [Reference Range]: 1 2 WBC [5.0-10.0 x10^3/mcL] 7.5 x10^3/mcL (11/24/22 4:54 PM) RBC [4.1-5.3 x10^6/mcL] 3.7 x10^6/mcL *LOW* (11/24/22 4:54 PM) Neutro Auto [40.0-75.0 %] 58.8 % (11/24/22 4:54 PM) Lymph Auto [20.0-50.0 %] 22.2 % (11/24/22 4:54 PM) Barton Auto [2.0-15.0 %] 11.5 % (11/24/22 4:54 PM) Basophil Auto [0.0-1.0 %] 1.3 % *HI* (11/24/22 4:54 PM) BUN [7-18 mg/dL] 40 mg/dL *HI* (11/24/22 4:54 PM) Glucose Level [74-106 mg/dL] 188 mg/dL *HI* (11/24/22 4:54 PM) Potassium Level [3.5-5.1 mmol/L] 4.9 mmo l/L (11/24/22 4:54 PM) MCV [80.0-96.0 fL] 99.2 fL *HI* (11/24/22 4:54 PM) CO2 Total Venous 32 mmol/L *NA* (11/24/22 4:54 PM) HCO3 Venous [22-30 mmol/L] 31 mmol/L *HI* (11/24/22 4:54 PM) AST [15-37 unit/L] 15 unit/L (11/24/22 4:54 PM) ALT [14-59 unit/L] 7 unit/L *LOW* (11/24/22 4:54 PM) MCHC [31.0-35.0 g/dL] 31.6 g/dL (11/24/22 4:54 PM) Troponin-I [0.0-51.4 pg/mL] 39.8 pg/mL (11/24/22 6:18 PM) 53.9 pg/mL *HI* (11/24/22 4:54 PM) Sodium Level [136-145 mmol/L] 138 mmol/L (11/24/22 4:54 PM) Hct [37.0-47.0 %] 36.7 % *LOW* (11/24/22 4:54 PM) Calcium Level [8.5-10.1 mg/dL] 12.5 mg/d L 1 *CRIT* (11/24/22 4:54 PM) Albumin Level [3.4-5.0 g/dL] 3.1 g/dL *LOW* (11/24/22 4:54 PM) Protein Total [6.4-8.2 g/dL] 7.0 g/dL (11/24/22 4:54 PM) MCH [26.0-32.0 pg] 31.4 pg (11/24/22 4:54 PM) Neutro Absolute 4.4 x10^3/mcL *NA* (11/24/22 4:54 PM) Bilirubin Total [0.2-1.0 mg/dL] 0.5 mg/d L (11/24/22 4:54 PM) Hgb [12.0-16.0 g/dL] 11.6 g/dL *LOW* (11/24/22 4:54 PM) Alk Phos [46-146 unit/L] 92 unit/L (11/24/22 4:54 PM) pCO2 Romain [33-47 mmHg] 52 mmHg *HI* (11/24/22 4:54 PM) Platelets [130-450 x10^3/mcL] 118 x10^3/ mcL *LOW* (11/24/22 4:54 PM) CO2 [21-32 mmol/L] 30 mmol/L (11/24/22 4:54 PM) Lactic Acid Lvl [0.7-2.0 mmol/L] 1.9 mmo l/L (11/24/22 6:18 PM) 3.0 mmol/L 2 *CRIT* (11/24/22 4:54 PM) pO2 Romain 19 mmHg *NA* (11/24/22 4:54 PM) pH Romain [7.32-7.43 pH unit(s)] 7.38 pH un it(s) (11/24/22 4:54 PM) O2 Sat Romain 35 % *NA* (11/24/22 4:54 PM) eGFR Non-AA [>=60] 14 *LOW* (11/24/22 4:54 PM) eGFR AA [>=60] 14 *LOW* (11/24/22 4:54 PM) Base Excess Venous 4.4 mmol/L *NA* (11/24/22 4:54 PM) Chloride Level [98-107 mmol/L] 99 mmol/L (11/24/22 4:54 PM) RDW-CV [11.5-14.5 %] 15.0 % *HI* (11/24/22 4:54 PM) Imm Gran Auto [0.0-0.9 %] 0.7 % (11/24/22 4:54 PM) Creatinine Level [0.55-1.02 mg/dL] 3.35 mg/dL *HI* (11/24/22 4:54 PM) Eos, Auto [1.0-6.0 %] 5.5 % (11/24/22 4:54 PM) 1Result Comment: Called to and verbally verified by Steven Hussein RN at 11/24/2022 17:35:19 EDT. 2Result Comment: Called to and verbally verified by Yamileth uHssein at 11/24/2022 17:06:12 EDT. Vital Signs Most recent to oldest [Reference Range]: 1 2 3 4 Temperature Temporal Artery [36-38 Deg C] 36.3 Deg C (11/24/22 5:42 PM) Temperature Temporal Artery (DegF) [97.3-100 Deg F] 97.34 Deg F (11/24/22 5:42 PM) Peripheral Pulse Rate [60-100 bpm] 71 bpm (11/24/22 7:03 PM) 68 bpm (11/24/22 6:14 PM) 66 bpm (11/24/22 5:42 PM) 65 bpm (11/24/22 5:42 PM) Heart Rate Monitored [60-100 bpm] 71 bpm (11/24/22 7:03 PM) 67 bpm (11/24/22 6:14 PM) 66 bpm (11/24/22 5:42 PM) 66 bpm (11/24/22 5:42 PM) Respiratory Rate [12-24 br/min] 17 br/min (11/24/22 7:03 PM) 14 br/min (11/24/22 6:14 PM) 17 br/min (11/24/22 5:42 PM) 17 br/min (11/24/22 5:42 PM) Blood Pressure [90-140/60-90 mmHg] 116/44mmHg (11/24/22 7:03 PM) 107/51mmHg (11/24/22 6:14 PM) 103/51mmHg (11/24/22 5:42 PM) 103/51mmHg (11/24/22 5:42 PM) Mean Arterial Pressure Cuff 66 mmHg (11/24/22 5:42 PM) Weight Dosing 61.00 kg (11/24/22 4:30 PM) Weight Estimated 61.00 kg (11/24/22 4:15 PM) Height/Length Dosing 168.000 cm (11/24/22 4:30 PM) Height/Length Estimated 168.000 cm (11/24/22 4:15 PM) Social History Social History Type Response Tobacco Never tobacco user T obacco Use:. Sex Female Physician Emergency department Note * Contreras Salas MD: PERFORM Event Display: ED Note Physician Authored Date: [id number] MARIA INES BROOKS :1945 Age:77 years Sex:Female Visit Date:11/24/2022 Primary Care Physician: Jeannine Fernandes MD Basic Information Time Seen: Contreras Salas MD / 11/24/2022 16:22 Chief Complaint Pt leaving routine PCP appt today when she complained of sudden onset center chest pain and SOB. Ptc/o dizziness throughout the day per pt daughter. History Of Present Illness: Concern is chest pain. ??Time of onset is 30 minutes prior to admission. ??Context this patient wasseen her primary care provider??and developed??low, substernal chest discomfort described as heaviness.?? Pain is currently resolved. ??It seems to be precipitated??by drinking.?? Prior similar episodes. Review of Systems: ?? Patient does also endorse nausea.Review of systems??is positive for dizziness, shortness of breath, abdominal discomfort. Physical Exam Vitals & Measurements T:??36.3?C ??(Temporal Artery)?? HR:??68??(Peripheral)?? HR:??67??(Monitored)?? RR:??14?? BP:??107/51?? SpO2:??96%?? HT:??168.000??cm?? WT:??61.00??kg??(Estimated)?? Pain Score:??6?? O2 Therapy:??Room air?? Is frail. ??Skin is pale. ??Respirations are normal.?? She is generally cachectic.?? There is diffuse tenderness over the entire chest wall.?? There is no abdominal tenderness. Medical Decision Making: Problem??precipitated in discomfort with drinking water suggests complexity is low. ??Data complexity is low. ??Risk of management??are low.?? MDM coding??97214.?? Esophageal spasm. Procedure No Qualifying Data Assessment/Plan Ordered: CV EKG ED, 11/24/22 16:26:00 EDT, Routine, Reason: ED - empiric, Stop date and time 11/24/22 16:26:00 EDT, ORD_SET_REQ_DT_RANGE, [facility] Internal Person Id Discharge Patient, 11/24/22 19:02:00 EDT, Home Independently, Constant Indicator Peripheral IV Insertion, 11/24/22 16:26:00 EDT Review Orders for Potential Auths., 11/24/22 16:27:54 EDT Discharge diagnosis is??esophageal??spasm. Medication Reconciliation Unchanged amLODIPine (amLODIPine 5 mg oral tablet)1 tab Oral (given by mouth) every day. Refills: 3. ?? ascorbic acid (Vitamin C TR 500 mg oral capsule)1 Capsules Oral (given by mouth) every day. ?? aspirin (aspirin 81 mg oral tablet, chewable)1 tab Oral (given by mouth) every day. Refills: 11. ?? atorvastatin (atorvastatin 40 mg oral tablet)1 tab Oral (given by mouth) every day. Refills: 0. ?? docusate (Colace 100 mg oral capsule)1 Capsules Oral (given by mouth) every day as needed as neededfor constipation. Refills: 0. ?? Durable Medical Equipment for Prescription (BD UF Pen Needle Mini [id number])Use one needle for each injection daily. (current Injections are 4 times daily). Refills: 2. ?? Durable Medical Equipment for Prescription (Glucerna)Twice a day. Refills: 3. ?? Durable Medical Equipment for Prescription (Onetouch Ultra Blue Test Strips)use as directed four times daily. Refills: 12. ?? ferrous gluconate (ferrous gluconate 324 mg (38 mg elemental iron) oral tablet)1 tab Oral (given bymouth) every day. Refills: 3. ?? folic acid (folic acid 1 mg oral tablet)1 tab Oral (given by mouth) every day. Refills: 3. ?? insulin detemir (Levemir FlexTouch 100 units/mL subcutaneous solution)15 Units Subcutaneous (under the skin) every night at bedtime. ?? insulin lispro (HumaLOG KwikPen 100 units/mL injectable solution)5 Units Subcutaneous (under the skin) 3 times a day before meals. Refills: 3. ?? magnesium oxide (magnesium oxide 400 mg (241.3 mg elemental magnesium) oral tablet)1 tab Oral (given by mouth) 2 times a day. Refills: 3. ?? melatonin (Melatonin 3 mg oral tablet)1 tab Oral (given by mouth) every night at bedtime. Refills: 3. ?? memantine (memantine 5 mg oral tablet)1 tab Oral (given by mouth) 2 times a day. Refills: 5. ?? metoprolol (Metoprolol Succinate ER 25 mg oral tablet, extended release)1 tab Oral (given by mouth)every day. Refills: 11. ?? mupirocin topical (mupirocin 2% topical ointment)APPLY [...] Other Prescription (BD UF MINI PEN NEEDLE [id number])USE DIRECTED FOUR TIMES A DAY NEEDED. Refills: 3. ?? oxybutynin (oxybutynin 5 mg oral tablet)1 tab Oral (given by mouth) 2 times a day as needed as needed for urinary discomfort. 2-3 TIMES DAILY NEEDED. Refills: 0. ?? pantoprazole (pantoprazole 40 mg oral delayed release tablet)1 tab Oral (given by mouth) every day.Refills: 11. ?? polyethylene glycol 3350 (MiraLax oral powder for reconstitution)17 Gram Oral (given by mouth) every day as needed constipation. Refills: 5. ?? propranolol (propranolol 20 mg oral tablet)3 tab Oral (given by mouth) 2 times a day. Refills: 5. ?? riboflavin (Vitamin B2 100 mg oral tablet)TAKE 1 TABLET BY MOUTH DAILY. Refills: 2. ?? venlafaxine (venlafaxine 150 mg oral capsule, extended release)1 Capsules Oral (given by mouth) every day. Refills: 3. Problem List/Past Medical History Ongoing Abdominal pain Anemia Anxiety Atrial thrombus Atrophic gastritis Chest pain Chronic kidney disease Chronic kidney disease stage 4 Degenerative joint disease of shoulder region Delirium Depressive disorder Disease caused by 2019 novel coronavirus Essential tremor Gastroesophageal reflux disease GI bleed Hypercalcemia Hyperlipidemia Hyperosmolality Hypertensive disorder Idiopathic osteoarthritis Imaging abnormality Irritable bowel syndrome with diarrhea Migraine Obesity Posttraumatic stress disorder Recurrent major depression Renal mass Type 2 diabetes mellitus without complication Unintended weight loss Urinary incontinence Urinary tract infectious disease Historical No qualifying data Procedure/Surgical History ???Colonoscopy (11/23/2014)???Ventral Hernia Repair (01/18/2012)???EGD - Esophagogastroduodenoscopy(06/13/2008)???Oophorectomy- left (06/07/2003)???Appendectomy (06/07/1979)???Oophorectomy-right (06/1979)???Cholecystectomy (06/07/1973)???Total abdominal hysterectomy (06/07/1971) Allergies azithromycin??(Skin rash) codeine??(Rapid heart beat) Social History Alcohol Never Electronic Cigarette/Vaping Electronic Cigarette Use: Never. Home/Environment Living situation: Home with assistance. Home equipment: Walker.- Comments: Lives at home with cat. Substance Use Never Tobacco Never tobacco user Tobacco Use:. Family History Coronary arteriosclerosis: Mother. Diabetes mellitus: Mother and Brother. Granulomatosis with polyangiitis with multisystem involvement: Brother. Heart disease: Mother, Father and Brother. Hypertensive disorder: Mother and Brother. Malignant tumor of stomach: Mother. Family Member(s): ?? BROTHER, at age: Unknown. Cause of : Lab Results Blood Gases?? LATEST RESULTS?? HISTORICAL RESULTS?? pH Romain?? 11/24/22 16:54?? 7.38?? 10/29/22?? 7.36?? pCO2 Romain?? 11/24/22 16:54?? 52 ??High?? 10/29/22?? 58 ??High?? pO2 Romain?? 11/24/22 16:54?? 19?? 10/29/22?? 20?? HCO3 Venous?? 11/24/22 16:54?? 31 ??High?? 10/29/22?? 33 ??High?? O2 Sat Romain?? 11/24/22 16:54?? 35?? 10/29/22?? 32?? CO2 Total Venous?? 11/24/22 16:54?? 32?? 10/29/22?? 34?? Base Excess Venous?? 11/24/22 16:54?? 4.4?? 10/29/22?? 5.6? CBC and Differential?? LATEST RESULTS?? HISTORICAL RESULTS?? WBC?? 11/24/22 16:54?? 7.5?? 11/17/22?? 7.8?? RBC?? 11/24/22 16:54?? 3.7 ??Low?? 11/17/22?? 3.4 ??Low?? Hgb?? 11/24/22 16:54?? 11.6 ??Low?? 11/17/22?? 10.8 ??Low?? Hct?? 11/24/22 16:54?? 36.7 ??Low?? 11/17/22?? 33.0 ??Low?? MCV?? 11/24/22 16:54?? 99.2 ??High?? 11/17/22?? 96.8 ??High?? MCH?? 11/24/22 16:54?? 31.4?? 11/17/22?? 31.7?? MCHC?? 11/24/22 16:54?? 31.6?? 11/17/22?? 32.7?? RDW-CV?? 11/24/22 16:54?? 15.0 ??High?? 11/17/22?? 15.0 ??High?? Platelets?? 11/24/22 16:54?? 118 ??Low?? 11/17/22?? 133?? Neutro Auto?? 11/24/22 16:54?? 58.8?? 11/17/22?? 65.8?? Lymph Auto?? 11/24/22 16:54?? 22.2?? 11/17/22?? 18.1 ??Low?? Barton Auto?? 11/24/22 16:54?? 11.5?? 11/17/22?? 10.5?? Eos, Auto?? 11/24/22 16:54?? 5.5?? 11/17/22?? 4.6?? Basophil Auto?? 11/24/22 16:54?? 1.3 ??High?? 11/17/22?? 0.6?? Imm Gran Auto?? 11/24/22 16:54?? 0.7?? 11/17/22?? 0.4?? Neutro Absolute?? 11/24/22 16:54?? 4.4?? 11/17/22?? 5.1? Routine Chemistry?? LATEST RESULTS?? HISTORICAL RESULTS?? Sodium Level?? 11/24/22 16:54?? 138?? 11/17/22?? 137?? Potassium Level?? 11/24/22 16:54?? 4.9?? 11/17/22?? 3.7?? Chloride Level?? 11/24/22 16:54?? 99?? 11/17/22?? 100?? CO2?? 11/24/22 16:54?? 30?? 11/17/22?? 31?? Alk Phos?? 11/24/22 16:54?? 92?? 11/17/22?? 95?? AST?? 11/24/22 16:54?? 15?? 11/17/22?? 7 ??Low?? ALT?? 11/24/22 16:54?? 7 ??Low?? 11/17/22?? 9 ??Low?? BUN?? 11/24/22 16:54?? 40 ??High?? 11/17/22?? 42 ??High?? Glucose Level?? 11/24/22 16:54?? 188 ??High?? 11/17/22?? 154 ??High?? Creatinine Level?? 11/24/22 16:54?? 3.35 ??High?? 11/17/22?? 3.29 ??High?? eGFR AA?? 11/24/22 16:54?? 14 ??Low?? 11/17/22?? 14 ??Low?? eGFR Non-AA?? 11/24/22 16:54?? 14 ??Low?? 11/17/22?? 14 ??Low?? Calcium Level?? 11/24/22 16:54?? 12.5 ??Critical?? 11/17/22?? 13.1 ??Critical?? Protein Total?? 11/24/22 16:54?? 7.0?? 11/17/22?? 6.8?? Albumin Level?? 11/24/22 16:54?? 3.1 ??Low?? 11/17/22?? 3.0 ??Low?? Bilirubin Total?? 11/24/22 16:54?? 0.5?? 11/17/22?? 0.4?? Lactic Acid Lvl?? 11/24/22 18:18?? 1.9?? 08/31/22?? 2.6 ??Critical? Cardiac Isoenzymes?? LATEST RESULTS?? HISTORICAL RESULTS?? Troponin-I?? 11/24/22 18:18?? 39.8?? 09/23/22?? 34.6? Electronically Signed on 11/24/22 07:03 PM Contreras Salas MD Emergency department Discharge instructions * Contreras Salas MD: PERFORM Event Display: ED Discharge Information Authored Date: [id number] MARIA INES BROOKS :1945 Age:77 years Sex:Female Visit Date:11/24/2022 Primary Care Physician: Jeannine Fernandes MD Discharge Instructions We would like to thank you for allowing us to assist you with your healthcare needs. The following includes patient education materials and information regarding your injury/illness. Discharge Vitals Temperature??(Temporal Artery) 97.3 ??F (36.3 ??C) Heart Rate??(Peripheral) 68 Heart Rate??(Monitored) 67 Respiratory Rate?? 14 Blood Pressure?? 107/51?? Height?? 66.14 in (168.000 cm) Weight??(Estimated) 134.50 lb (61.00 kg) Allergies azithromycin??(Skin rash) codeine??(Rapid heart beat) What to Do Next Instructions from Your Care Team If recurrent discomfort you may try taking an antacid like Maalox or Mylanta.?? There is no evidence that the pain is coming from your heart.?? Continue with current medications. ??Follow-up with your primary care provider. Upcoming Scheduled Appointments Wednesday 2:40 PM EDT ?? Wednesday 11:30 AM EDT ?? Wednesday 11:30 AM EDT ?? Wednesday 10:00 AM EDT [...] for Prescription (BD UF Pen Needle Mini [id number]) See instructions DM2 (diabetes mellitus, type 2) [...] (given by mouth) Every day Unchanged insulin detemir (Levemir FlexTouch 100 units/ mL subcutaneous solution) 15 Units Subcutaneous (under the skin) Every night at bedtime Unchanged insulin lispro (HumaLOG KwikPen 100 units/ mL injectable solution) 5 Units Subcutaneous (under the skin) 3 times a day before meals Unchanged magnesium oxide (magnesium oxide 400 mg [...] Oral (given by mouth) Every day Unchanged mupirocin topical (mupirocin 2% topical ointment) [...] Other Prescription (BD UF MINI PEN NEEDLE [id number]) See instructions USE DIRECTED FOUR TIMES A [...] Test Name Test Result Date/Time pH Romain 7.38 pH unit(s) 11/24/2022 16:54 EDT pCO2 Romain 52 mmHg 11/24/2022 16:54 EDT pO2 Romain 19 mmHg 11/24/2022 16:54 EDT HCO3 Venous 31 mmol/L 11/24/2022 16:54 EDT O2 Sat Romain 35 % 11/24/2022 16:54 EDT CO2 Total Venous 32 mmol/L 11/24/2022 16:54 EDT Base Excess Venous 4.4 mmol/L 11/24/2022 16:54 EDT WBC 7.5 x10^3/mcL 11/24/2022 16:54 EDT RBC 3.7 x10^6/mcL 11/24/2022 16:54 EDT Hgb 11.6 g/dL 11/24/2022 16:54 EDT Hct 36.7 % 11/24/2022 16:54 EDT MCV 99.2 fL 11/24/2022 16:54 EDT MCH 31.4 pg 11/24/2022 16:54 EDT MCHC 31.6 g/dL 11/24/2022 16:54 EDT RDW-CV 15.0 % 11/24/2022 16:54 EDT Platelets 118 x10^3/mcL 11/24/2022 16:54 EDT Neutro Auto 58.8 % 11/24/2022 16:54 EDT Lymph Auto 22.2 % 11/24/2022 16:54 EDT Barton Auto 11.5 % 11/24/2022 16:54 EDT Eos, Auto 5.5 % 11/24/2022 16:54 EDT Basophil Auto 1.3 % 11/24/2022 16:54 EDT Imm Gran Auto 0.7 % 11/24/2022 16:54 EDT Neutro Absolute 4.4 x10^3/mcL 11/24/2022 16:54 EDT Sodium Level 138 mmol/L 11/24/2022 16:54 EDT Potassium Level 4.9 mmol/L 11/24/2022 16:54 EDT Chloride Level 99 mmol/L 11/24/2022 16:54 EDT CO2 30 mmol/L 11/24/2022 16:54 EDT Alk Phos 92 unit/L 11/24/2022 16:54 EDT AST 15 unit/L 11/24/2022 16:54 EDT ALT 7 unit/L 11/24/2022 16:54 EDT BUN 40 mg/dL 11/24/2022 16:54 EDT Glucose Level 188 mg/dL 11/24/2022 16:54 EDT Creatinine Level 3.35 mg/dL 11/24/2022 16:54 EDT eGFR AA 14 11/24/2022 16:54 EDT eGFR Non-AA 14 11/24/2022 16:54 EDT Calcium Level 12.5 mg/dL 11/24/2022 16:54 EDT Protein Total 7.0 g/dL 11/24/2022 16:54 EDT Albumin Level 3.1 g/dL 11/24/2022 16:54 EDT Bilirubin Total 0.5 mg/dL 11/24/2022 16:54 EDT Lactic Acid Lvl 1.9 mmol/L 11/24/2022 18:18 EDT Troponin-I 39.8 pg/mL 11/24/2022 18:18 EDT Patient/Joint Machine Operator Signature Patient Name:DANIELE BROOKSDino Ga I have received this information and my questions have been answered. Patient/Joint Machine Operator Name: Patient/Joint Machine Operator Signature: Relationship to Patient: Witness Name/Signature: Date: Electronically Signed on: 11/24/2022 19:03 EDTSigned by:[facility] Patient Care team information Care Team Personnel Name: Jeannine Fernandes MD Position: Physician Member Role: Informed Provider Address: Address: [address] Name: Nithin Bellamy FINANCIAL SERVICES EDUCATION CONSULTANT Position: Physician Member Role: Nurse Practitioner Address: Address: [address] Name: Noreen York Position: Ambulatory - RN/INTAKE RN (Sanjay) Member Role: Chopper Gun Operator Name: Grupo Walters FINANCIAL SERVICES EDUCATION CONSULTANT Position: Physician Member Role: Nurse Practitioner Name: Contreras Salas MD Position: Physician Member Role: Admitting Physician Address: Address: [address] [place], [place] [id number] Name: Mark Chong RN Position: Nurse Member Role: Registered Nurse Name: Hermila You Position: Nurse Member Role: ED Nurse Care Team Related Persons Name: ROMAN EARL Address: [address] [place], [place] [address] Address: Home [address] [place] [address] [address] [place] [phone] Name: ROMAN EARL Address: [address] [place], [place] [address] Address: [address] [phone]
--- OUTSIDE RECORDS SUMMARY | 2022-12-19 08:41 | XMS_ITS | Continuity of Care Document ---
Author Name Unknown Organization [facility] Address [address] [place] [address] Care Team Providers Care Professional Soccer Player Name Role Phone Jeannine Fernandes Primary Care Physician Noreen York Unavailable Unavailable [facility] - 11/04/22 [facility] [address] [place] [address] Discharge Disposition: Home Allergies, Adverse Reactions, Alerts [...] Daily, # 90 tab, 3 Refill(s), Pharmacy: [facility], 168, cm, 09/23/22 17:19:00 EDT, Height/Length Dosing, 64.1, kg, 09/23/22 17:19:00 EDT, Weight Dosing Start Date: 10/20/22 Status: Ordered aspirin 81 mg oral tablet, chewable 81 mg = 1 tab, Oral, Daily, # 90 tab, 0 Refill(s), Pharmacy: [facility], 160, cm, 06/14/22 22:46:00 EST, Height/Length Dosing, 83, kg, 06/14/22 22:46:00 EST, Weight Dosing Start Date: 08/28/22 Status: Ordered atorvastatin 40 mg oral tablet 1 tab, Oral, Daily, # 84 tab, 0 Refill(s), Pharmacy: [id number], 160, cm, 06/14/22 22:46:00 EST, Height/Length Dosing, 83, kg, 06/14/22 22:46:00 EST, Weight Dosing Start Date: 08/24/22 Status: Ordered BD Pen Needle Mini U/F 31G X 5 MM MISC BD Pen Needle Mini U/F 31G X 5 MM MISC, See Instructions, USE FOUR TIMES A DAY DIRECTED, # 100 EA, 2 Refill(s), Pharmacy: [facility], 160, cm, 06/14/22 22:46:00 EST, Height/Length Dosing, 83, kg, 06/14/22 22:46:00 EST, Weight Dosing Start Date: 07/26/22 Status: Ordered BD UF MINI PEN NEEDLE [id number] BD UF MINI PEN NEEDLE [id number], See Instructions, USE DIRECTED FOUR TIMES A DAY NEEDED, # 100 EA, 3 Refill(s), Pharmacy: [facility] Start Date: 02/24/22 Status: Ordered BD UF Pen Needle Mini [id number] BD UF Pen Needle Mini [id number], Use one needle for each injection daily. (current Injections are 4 times daily), Supply, See instructions, # 100 EA, 2 Refill(s), Pharmacy: [facility] Start Date: 01/16/22 Status: Ordered Colace 100 mg oral capsule 100 mg = 1 cap, Oral, Daily, PRN as needed for constipation, # 90 cap, 0 Refill(s), Pharmacy: [facility], 168, cm, 09/23/22 17:19:00 EDT, Height/Length Dosing, 64.1, kg, 09/23/22 17:19:00 EDT, Weight Dosing Start Date: 10/13/22 Status: Ordered ferrous gluconate 324 mg (38 mg elemental iron) oral tablet 324 mg = 1 tab, Oral, Daily, # 90 tab, 0 Refill(s), Pharmacy: [facility], 160, cm, 08/31/22 11:50:00 EDT, Height/Length Dosing, 36.2, kg, 08/31/22 11:50:00 EDT, Weight Dosing Start Date: 09/01/22 Status: Ordered ferrous gluconate 324 mg (38 mg elemental iron) oral tablet 324 mg = 1 tab, Oral, Daily Start Date: 12/17/21 Status: Ordered folic acid 1 mg oral tablet 1 mg = 1 tab, Oral, Daily, # 90 tab, 0 Refill(s), Pharmacy: [facility], 160, cm, 08/31/22 11:50:00 EDT, Height/Length Dosing, 36.2, kg, 08/31/22 11:50:00 EDT, Weight Dosing Start Date: 09/01/22 Status: Ordered Glucerna Glucerna, Twice a day, Supply, See instructions, # 60 EA, 3 Refill(s), Pharmacy: [facility] Start Date: 07/13/22 Status: Ordered Levemir FlexTouch 100 units/mL subcutaneous solution 15 units =, Subcutaneous, every night at bedtime Start Date: 05/13/22 Status: Ordered magnesium oxide 400 mg (241.3 mg elemental magnesium) oral tablet 1 tab, Oral, BID, # 56 tab, 3 Refill(s), Pharmacy: [facility] [id number], 168, cm, 09/01/22 14:46:00 EDT, Height/Length Dosing, 66.2, kg, 09/01/22 14:46:00 EDT, Weight Dosing Start Date: 09/22/22 Status: Ordered Melatonin 3 mg oral tablet 1 tab, Oral, every night at bedtime, # 28 tab, 3 Refill(s), Pharmacy: [facility] [id number], 168, cm, 09/01/22 14:46:00 EDT, Height/Length Dosing, 66.2, kg, 09/01/22 14:46:00 EDT, Weight Dosing Start Date: 09/22/22 Status: Ordered memantine 5 mg oral tablet 5 mg = 1 tab, Oral, BID, # 60 tab, 5 Refill(s), Pharmacy: [facility], 168, cm, 09/23/22 17:19:00 EDT, Height/Length Dosing, 64.1, kg, 09/23/22 17:19:00 EDT, Weight Dosing Start Date: 10/23/22 Status: Ordered Metoprolol Succinate ER 25 mg oral tablet, extended release 25 mg = 1 tab, Oral, Daily, TAKE ONE TABLET BY MOUTH EVERY DAY, # 90 tab, 3 Refill(s), Pharmacy: [facility] Start Date: 01/01/22 Status: Ordered MiraLax oral powder for reconstitution 17 g, Oral, Daily, PRN constipation, # 12 EA, 5 Refill(s), Pharmacy: [facility], 168,cm, 09/23/22 17:19:00 EDT, Height/Length Dosing, 64.1, kg, 09/23/22 17:19:00 EDT, Weight Dosing Start Date: 10/23/22 Status: Ordered mupirocin 2% topical ointment See Instructions, APPLY A SMALL AMOUNT TOPICALLY TO AFFECTED AREA(S) THREE TIMES A DAY, # 22 g, 1 Refill(s), Pharmacy: [facility] Start Date: 03/23/22 Status: Ordered nitroglycerin 0.4 mg sublingual tablet 0.4 mg = 1 tab, SL, every 5 min, not to exceed 3 doses/15 min--if pain persists, seek medical attention, # 30 tab, 0 Refill(s), Pharmacy: [facility], 160, cm, 06/14/22 22:46:00 EST, Height/Length Dosing, 83, kg, 06/14/22 22:46:00 EST, We... Start Date: 06/18/22 Status: Ordered NovoLOG FlexPen 100 units/mL injectable solution 5 units =, Subcutaneous, TID(AC), # 10 mL, 0 Refill(s), Pharmacy: [facility], 168, cm, 05/16/22 21:31:00 EST, Height/Length Dosing, 70, kg, 05/16/22 21:31:00 EST, Weight Dosing Start Date: 06/04/22 Status: Ordered Onetouch Ultra Blue Test Strips Onetouch Ultra Blue Test Strips, use as directed four times daily, Supply, See instructions, # 300 EA, 12 Refill(s), Pharmacy: [facility] Start Date: 07/27/22 Status: Ordered oxybutynin 5 mg oral tablet 5 mg = 1 tab, Oral, BID, PRN as needed for urinary discomfort, 2-3 TIMES DAILY NEEDED, # 30 tab,0 Refill(s), Pharmacy: [facility], 168, cm, 05/16/22 21:31:00 EST, Height/Length Dosing, 70, kg, 05/16/22 21:31:00 EST, Weight Dosing Start Date: 06/04/22 Status: Ordered pantoprazole 40 mg oral delayed release tablet 40 mg = 1 tab, Oral, Daily Start Date: 05/13/22 Status: Ordered propranolol 20 mg oral tablet 3 tab, Oral, BID, # 180 tab, 5 Refill(s), Pharmacy: [facility], 168, cm, 09/23/22 17:19:00 EDT, Height/Length Dosing, 64.1, kg, 09/23/22 17:19:00 EDT, Weight Dosing Start Date: 10/23/22 Status: Ordered venlafaxine 150 mg oral capsule, extended release 150 mg = 1 cap, Oral, Daily, # 90 cap, 3 Refill(s), Pharmacy: [facility], 160, cm, 08/31/22 11:50:00 EDT, Height/Length Dosing, 36.2, kg, 08/31/22 11:50:00 EDT, Weight Dosing Start Date: 09/01/22 Status: Ordered Vitamin B2 100 mg oral tablet See Instructions, TAKE 1 TABLET BY MOUTH DAILY, # 84 tab, 2 Refill(s), Pharmacy: [id number], 168, cm, 09/01/22 14:46:00 EDT, Height/Length Dosing, [...] will continue to monitor renal function. 4From 04-08-2022 visit: Well controlled, c/w venlafaxine 150 mg [...] Physician Member Role: Informed Provider Address: Address: [address] Name: Nithin Bellamy ENCAPSULATOR Position: Physician Member Role: Nurse Practitioner Address: Address: [address] Name: Noreen York Position: Ambulatory - RN/DUCT INSTALLER ([facility]) Member Role: Manager Rail Name: Grupo Walters ENCAPSULATOR Position: Physician Member Role: Nurse Practitioner Care Team Related Persons Name: ROMAN EARL Address: [place] [address] Address: [address] [id number] Name: ROMAN EARL Address: [place] [address] Address: [place] [phone]
--- OUTSIDE RECORDS SUMMARY | 2022-12-19 08:41 | XMS_ITS | Continuity of Care Document ---
Author Name Unknown Organization [facility] Address [address] [place] [address] Care Team Providers Care Cardiac Cath Lab Radiology Technologist Name Role Phone Jeannine Fernandes Primary Care Physician Noreen York Unavailable Unavailable Encounter [facility] Date(s): 10/06/22 - 10/06/[address] [address] Encounter Diagnosis Palpitations(Discharge Diagnosis) - 10/06/22 Discharge Disposition: Home or Self Care Attending Physician: Kamran Roldan MD Admitting Physician: Kamran Roldan MD Referring Physician: Kamran Roldan MD Allergies, Adverse Reactions, Alerts Substance Reaction [...] Daily, # 30 tab, 5 Refill(s), Pharmacy: [facility], 161, cm, 05/12/2220:25:00 EST, Height/Length Dosing, 77.5, kg, 05/12/22 20:25:00 EST, Weight Dosing Start Date: 05/15/22 Status: Ordered aspirin 81 mg oral tablet, chewable 81 mg = 1 tab, Oral, Daily, # 90 tab, 0 Refill(s), Pharmacy: [facility] , 160, cm, 06/14/22 22:46:00 EST, Height/Length Dosing, 83, kg, 06/14/22 22:46:00 EST, Weight Dosing Start Date: 08/28/22 Status: Ordered atorvastatin 40 mg oral tablet 1 tab, Oral, Daily, # 84 tab, 0 Refill(s), Pharmacy: [facility], 160, cm, 06/14/22 22:46:00 EST, Height/Length Dosing, 83, kg, 06/14/22 22:46:00 EST, Weight Dosing Start Date: 08/24/22 Status: Ordered BD Pen Needle Mini U/F 31G X 5 MM MISC BD Pen Needle Mini U/F 31G X 5 MM MISC, See Instructions, USE FOUR TIMES A DAY DIRECTED, # 100 EA, 2 Refill(s), Pharmacy: [facility], 160, cm, 06/14/22 22:46:00 EST, Height/Length Dosing, 83, kg, 06/14/22 22:46:00 EST, Weight Dosing Start Date: 07/26/22 Status: Ordered BD UF MINI PEN NEEDLE [id number] BD UF MINI PEN NEEDLE [id number], See Instructions, USE DIRECTED FOUR TIMES A DAY NEEDED, # 100 EA, 3 Refill(s), Pharmacy: [facility] Start Date: 02/24/22 Status: Ordered BD UF Pen Needle Mini [id number] BD UF Pen Needle Mini [id number], Use one needle for each injection daily. (current Injections are 4 times daily), Supply, See instructions, # 100 EA, 2 Refill(s), Pharmacy: [facility] Start Date: 01/16/22 Status: Ordered doxycycline monohydrate 100 mg oral capsule 100 mg = 1 cap, Oral, every 12 hr, # 6 cap, 0 Refill(s), Pharmacy: [facility], 168, cm, 09/01/22 14:46:00 EDT, Height/Length Dosing, 66.2, kg, 09/01/22 14:46:00 EDT, Weight Dosing Start Date: 09/03/22 Stop Date: 09/06/22 Status: Ordered ferrous gluconate 324 mg (38 mg elemental iron) oral tablet 324 mg = 1 tab, Oral, Daily, # 90 tab, 0 Refill(s), Pharmacy: [facility], 160, cm, 08/31/22 11:50:00 EDT, Height/Length Dosing, 36.2, kg, 08/31/22 11:50:00 EDT, Weight Dosing Start Date: 09/01/22 Status: Ordered ferrous gluconate 324 mg (38 mg elemental iron) oral tablet 324 mg = 1 tab, Oral, Daily Start Date: 12/17/21 Status: Ordered folic acid 1 mg oral tablet 1 mg = 1 tab, Oral, Daily, # 90 tab, 0 Refill(s), Pharmacy: [facility], 160, cm, 08/31/22 11:50:00 EDT, Height/Length Dosing, 36.2, kg, 08/31/22 11:50:00 EDT, Weight Dosing Start Date: 09/01/22 Status: Ordered Glucerna Glucerna, Twice a day, Supply, See instructions, # 60 EA, 3 Refill(s), Pharmacy: [facility] Start Date: 07/13/22 Status: Ordered Levemir FlexTouch 100 units/mL subcutaneous solution 15 units =, Subcutaneous, every night at bedtime Start Date: 05/13/22 Status: Ordered magnesium oxide 400 mg (241.3 mg elemental magnesium) oral tablet 1 tab, Oral, BID, # 56 tab, 3 Refill(s), Pharmacy: [facility] [id number], 168, cm, 09/01/22 14:46:00 EDT, Height/Length Dosing, 66.2, kg, 09/01/22 14:46:00 EDT, Weight Dosing Start Date: 09/22/22 Status: Ordered Melatonin 3 mg oral tablet 1 tab, Oral, every night at bedtime, # 28 tab, 3 Refill(s), Pharmacy: [facility] [address], 168, cm, 09/01/22 14:46:00 EDT, Height/Length Dosing, [...] DAY, # 90 tab, 3 Refill(s), Pharmacy: [facility] Start Date: 01/01/22 Status: Ordered mupirocin 2% topical ointment See Instructions, APPLY A SMALL AMOUNT TOPICALLY TO AFFECTED AREA(S) THREE TIMES A DAY, # 22 g, 1 Refill(s), Pharmacy: [facility] Start Date: 03/23/22 Status: Ordered nitroglycerin 0.4 mg sublingual tablet 0.4 mg = 1 tab, SL, every 5 min, not to exceed 3 doses/15 min--if pain persists, seek medical attention, # 30 tab, 0 Refill(s), Pharmacy: [facility], 160, cm, 06/14/22 22:46:00 EST, Height/Length Dosing, 83, kg, 06/14/22 22:46:00 EST, We... Start Date: 06/18/22 Status: Ordered NovoLOG FlexPen 100 units/mL injectable solution 5 units =, Subcutaneous, TID(AC), # 10 mL, 0 Refill(s), Pharmacy: [facility], 168, cm, 05/16/22 21:31:00 EST, Height/Length Dosing, 70, kg, 05/16/22 21:31:00 EST, Weight Dosing Start Date: 06/04/22 Status: Ordered Onetouch Ultra Blue Test Strips Onetouch Ultra Blue Test Strips, use as directed four times daily, Supply, See instructions, # 300 EA, 12 Refill(s), Pharmacy: [facility] Start Date: 07/27/22 Status: Ordered oxybutynin 5 mg oral tablet 5 mg = 1 tab, Oral, BID, PRN as needed for urinary discomfort, 2-3 TIMES DAILY NEEDED, # 30 tab,0 Refill(s), [facility], 168, cm, 05/16/22 21:31:00 EST, Height/Length Dosing, 70, kg, 05/16/22 21:31:00 EST, Weight Dosing Start Date: 06/04/22 Status: Ordered pantoprazole 40 mg oral delayed release tablet 40 mg = 1 tab, Oral, Daily Start Date: 05/13/22 Status: Ordered propranolol 20 mg oral tablet 3 tab, Oral, BID, # 168 tab, 0 Refill(s), Pharmacy: [facility] [id number], 160, cm, 06/14/22 22:46:00 EST, Height/Length Dosing, 83, kg, 06/14/22 22:46:00 EST, Weight Dosing Start Date: 08/24/22 Status: Ordered venlafaxine 150 mg oral capsule, extended release 150 mg = 1 cap, Oral, Daily, # 90 cap, 3 Refill(s), [facility], 160, cm, 08/31/22 11:50:00 EDT, Height/Length Dosing, 36.2, kg, 08/31/22 11:50:00 EDT, Weight Dosing Start Date: 09/01/22 Status: Ordered Vitamin B2 100 mg oral tablet See Instructions, TAKE 1 TABLET BY MOUTH DAILY, # 84 tab, 2 Refill(s), Pharmacy: [facility], cm, 09/01/22 14:46:00 EDT, Height/Length Dosing, [...] tobacco user T obacco Use:. Sex Female Cardiology * Hilda Isaacs: PERFORM Event Display: Event Monitor Authored Date: [id number] DANIELE BROOKSN Harmeet 1945 [id number] Patient placed on [employer] Event Monitor 14 10/06/2022 Electronically Signed on 10/06/22 10:56 AM Hilda Isaacs Patient Care team information Care Team Personnel Name: Jeannine Fernandes MD Position: Physician Member Role: Informed Provider Address: Address: [address] Name: Nithin Bellamy THERAPY TEACHER Position: Physician Member Role: Nurse Practitioner Address: Address: [address] Name: Noreen York Position: Ambulatory - RN/CONSUMER RECRUITER ([facility]) Member Role: Ornamental Plaster Sticker Name: Grupo Walters THERAPY TEACHER Position: Physician Member Role: Nurse Practitioner Care Team Related Persons Name: ROMAN EARL Address: [address] [place] [address] Address: Home [address] [place] [address] [address] [place] [phone] Name: ROMAN EARL Address: [place] [address] [place], [place] [address] Address[address] [place] [address] [place] [phone]
--- OUTSIDE RECORDS SUMMARY | 2022-12-19 08:41 | XMS_ITS | Continuity of Care Document ---
Author Name Unknown Organization [facility] Address [address] [place] [address] Care Team Providers Care Color Card Maker Name Role Phone Jeannine Fernandes Primary Care Physician Noreen York Unavailable Unavailable Encounter [id number] Date(s): 10/27/22 - 10/27/[address] [id number] Discharge Disposition: Home or Self Care Attending [...] Daily, # 90 tab, 3 Refill(s), Pharmacy: [facility], 168, cm, 09/23/22 17:19:00 EDT, Height/Length Dosing, 64.1, kg, 09/23/22 17:19:00 EDT, Weight Dosing Start Date: 10/20/22 Status: Ordered aspirin 81 mg oral tablet, chewable 81 mg = 1 tab, Oral, Daily, # 90 tab, 0 Refill(s), Pharmacy: [facility], 160, cm, 06/14/22 22:46:00 EST, Height/Length Dosing, 83, kg, 06/14/22 22:46:00 EST, Weight Dosing Start Date: 08/28/22 Status: Ordered atorvastatin 40 mg oral tablet 1 tab, Oral, Daily, # 84 tab, 0 Refill(s), Pharmacy: [id number], 160, cm, 06/14/22 22:46:00 EST, Height/Length Dosing, 83, kg, 06/14/22 22:46:00 EST, Weight Dosing Start Date: 08/24/22 Status: Ordered BD Pen Needle Mini U/F 31G X 5 MM MISC BD Pen Needle Mini U/F 31G X 5 MM MISC, See Instructions, USE FOUR TIMES A DAY DIRECTED, # 100 EA, 2 Refill(s), Pharmacy: [facility], 160, cm, 06/14/22 22:46:00 EST, Height/Length Dosing, 83, kg, 06/14/22 22:46:00 EST, Weight Dosing Start Date: 07/26/22 Status: Ordered BD UF MINI PEN NEEDLE [id number] BD UF MINI PEN NEEDLE [id number], See Instructions, USE DIRECTED FOUR TIMES A DAY NEEDED, # 100 EA, 3 Refill(s), Pharmacy: [id number] Start Date: 02/24/22 Status: Ordered BD UF Pen Needle Mini [id number] BD UF Pen Needle Mini [id number], Use one needle for each injection daily. (current Injections are 4 times daily), Supply, See instructions, # 100 EA, 2 Refill(s), Pharmacy: [facility] Start Date: 01/16/22 Status: Ordered Colace 100 mg oral capsule 100 mg = 1 cap, Oral, Daily, PRN as needed for constipation, # 90 cap, 0 Refill(s), Pharmacy: [facility], 168, cm, 09/23/22 17:19:00 EDT, Height/Length Dosing, 64.1, kg, 09/23/22 17:19:00 EDT, Weight Dosing Start Date: 10/13/22 Status: Ordered doxycycline monohydrate 100 mg oral capsule 100 mg = 1 cap, Oral, every 12 hr, # 6 cap, 0 Refill(s), Pharmacy: [facility], 168, cm, 09/01/22 14:46:00 EDT, Height/Length Dosing, 66.2, kg, 09/01/22 14:46:00 EDT, Weight Dosing Start Date: 09/03/22 Stop Date: 09/06/22 Status: Ordered ferrous gluconate 324 mg (38 mg elemental iron) oral tablet 324 mg = 1 tab, Oral, Daily, # 90 tab, 0 Refill(s), Pharmacy: [facility], 160, cm, 08/31/22 11:50:00 EDT, Height/Length Dosing, 36.2, kg, 08/31/22 11:50:00 EDT, Weight Dosing Start Date: 09/01/22 Status: Ordered ferrous gluconate 324 mg (38 mg elemental iron) oral tablet 324 mg = 1 tab, Oral, Daily Start Date: 12/17/21 Status: Ordered folic acid 1 mg oral tablet 1 mg = 1 tab, Oral, Daily, # 90 tab, 0 Refill(s), Pharmacy: [facility], 160, cm, 08/31/22 11:50:00 EDT, Height/Length Dosing, 36.2, kg, 08/31/22 11:50:00 EDT, Weight Dosing Start Date: 09/01/22 Status: Ordered Glucerna Glucerna, Twice a day, Supply, See instructions, # 60 EA, 3 Refill(s), Pharmacy: [facility] Start Date: 07/13/22 Status: Ordered Levemir FlexTouch 100 units/mL subcutaneous solution 15 units =, Subcutaneous, every night at bedtime Start Date: 05/13/22 Status: Ordered magnesium oxide 400 mg (241.3 mg elemental magnesium) oral tablet 1 tab, Oral, BID, # 56 tab, 3 Refill(s), Pharmacy: [id number], 168, cm, 09/01/22 14:46:00 EDT, Height/Length Dosing, 66.2, kg, 09/01/22 14:46:00 EDT, Weight Dosing Start Date: 09/22/22 Status: Ordered Melatonin 3 mg oral tablet 1 tab, Oral, every night at bedtime, # 28 tab, 3 Refill(s), Pharmacy: [facility] [id number], 168, cm, 09/01/22 14:46:00 EDT, Height/Length Dosing, 66.2, kg, 09/01/22 14:46:00 EDT, Weight Dosing Start Date: 09/22/22 Status: Ordered memantine 5 mg oral tablet 5 mg = 1 tab, Oral, BID, # 60 tab, 5 Refill(s), Pharmacy: [facility], 168, cm, 09/23/22 17:19:00 EDT, Height/Length Dosing, 64.1, kg, 09/23/22 17:19:00 EDT, Weight Dosing Start Date: 10/23/22 Status: Ordered Metoprolol Succinate ER 25 mg oral tablet, extended release 25 mg = 1 tab, Oral, Daily, TAKE ONE TABLET BY MOUTH EVERY DAY, # 90 tab, 3 Refill(s), Pharmacy: [facility] Start Date: 01/01/22 Status: Ordered MiraLax oral powder for reconstitution 17 g, Oral, Daily, PRN constipation, # 12 EA, 5 Refill(s), [facility], 168,cm, 09/23/22 17:19:00 EDT, Height/Length Dosing, 64.1, kg, 09/23/22 17:19:00 EDT, Weight Dosing Start Date: 10/23/22 Status: Ordered mupirocin 2% topical ointment See Instructions, APPLY A SMALL AMOUNT TOPICALLY TO AFFECTED AREA(S) THREE TIMES A DAY, # 22 g, 1 Refill(s), Pharmacy: [facility] Start Date: 03/23/22 Status: Ordered nitroglycerin 0.4 mg sublingual tablet 0.4 mg = 1 tab, SL, every 5 min, not to exceed 3 doses/15 min--if pain persists, seek medical attention, # 30 tab, 0 Refill(s), Pharmacy: [facility], 160, cm, 06/14/22 22:46:00 EST, Height/Length Dosing, 83, kg, 06/14/22 22:46:00 EST, We... Start Date: 06/18/22 Status: Ordered NovoLOG FlexPen 100 units/mL injectable solution 5 units =, Subcutaneous, TID(AC), # 10 mL, 0 Refill(s), [facility], 168, cm, 05/16/22 21:31:00 EST, Height/Length Dosing, 70, kg, 05/16/22 21:31:00 EST, Weight Dosing Start Date: 06/04/22 Status: Ordered Onetouch Ultra Blue Test Strips Onetouch Ultra Blue Test Strips, use as directed four times daily, Supply, See instructions, # 300 EA, 12 Refill(s), Pharmacy: [facility] Start Date: 07/27/22 Status: Ordered oxybutynin 5 mg oral tablet 5 mg = 1 tab, Oral, BID, PRN as needed for urinary discomfort, 2-3 TIMES DAILY NEEDED, # 30 tab,0 Refill(s), Pharmacy: [facility], 168, cm, 05/16/22 21:31:00 EST, Height/Length Dosing, 70, kg, 05/16/22 21:31:00 EST, Weight Dosing Start Date: 06/04/22 Status: Ordered pantoprazole 40 mg oral delayed release tablet 40 mg = 1 tab, Oral, Daily Start Date: 05/13/22 Status: Ordered propranolol 20 mg oral tablet 3 tab, Oral, BID, # 180 tab, 5 Refill(s), Pharmacy: [facility], 168, cm, 09/23/22 17:19:00 EDT, Height/Length Dosing, 64.1, kg, 09/23/22 17:19:00 EDT, Weight Dosing Start Date: 10/23/22 Status: Ordered venlafaxine 150 mg oral capsule, extended release 150 mg = 1 cap, Oral, Daily, # 90 cap, 3 Refill(s), Pharmacy: [facility], 160, cm, 08/31/22 11:50:00 EDT, Height/Length Dosing, 36.2, kg, 08/31/22 11:50:00 EDT, Weight Dosing Start Date: 09/01/22 Status: Ordered Vitamin B2 100 mg oral tablet See Instructions, TAKE 1 TABLET BY MOUTH DAILY, # 84 tab, 2 Refill(s), Pharmacy: [facility] [id number], 168, cm, 09/01/22 14:46:00 EDT, Height/Length Dosing, 66.2, kg, 09/01/22 14:46:00 EDT, Weight Dosing Start Date: 09/03/22 Status: Ordered Vitamin C TR 500 mg oral capsule 1 cap, Oral, Daily, 0 Refill(s) Start Date: 12/17/21 Status: Ordered Problem List Condition Confirmation Course Effective Dates Status H ealth Status Informant Anemia 1 Confirmed Active Anxiety Confirmed Active [...] stress disorder Confirmed Active Recurrent major depression 9 Confirmed Active Renal mass 10 Confirmed 04/11/19 Active Type 2 diabetes mellitus without complication 11 Confirmed 12/26/19 Active Urinary incontinence 12 Confirmed Active Urinary [...] Pylori, negative Results Laboratory List Name Date Vitamin D, 25-OH Total [facility] 10/27/22 Calcium Level Ionized 10/27/22 Comprehensive Metabolic Panel (CMP) 10/27 PTH Intact [facility] 10/27/22 Most recent to oldest [Reference Range]: 1 BUN [7-18 mg/dL] 50 mg/dL *HI* (10/27/22 11:31 AM) Glucose Level [74-106 mg/dL] 355 mg/dL *HI* (10/27/22 11:31 AM) Potassium Level [3.5-5.1 mmol/L] 4.8 mmo l/L (10/27/22 11:31 AM) AST [15-37 unit/L] 14 unit/L *LOW* (10/27/22 11:31 AM) ALT [14-59 unit/L] 14 unit/L (10/27/22 11:31 AM) Sodium Level [136-145 mmol/L] 132 mmol/L *LOW* (10/27/22 11:31 AM) Calcium Level [8.5-10.1 mg/dL] 13.2 mg/d L 1 *CRIT* (10/27/22 11:31 AM) Albumin Level [3.4-5.0 g/dL] 3.1 g/dL *LOW* (10/27/22 11:31 AM) Protein Total [6.4-8.2 g/dL] 7.3 g/dL (10/27/22 11:31 AM) Bilirubin Total [0.2-1.0 mg/dL] 0.5 mg/d L (10/27/22 11:31 AM) Alk Phos [46-146 unit/L] 111 unit/L (10/27/22 11: AM) CO2 [21-32 mmol/L] 30 mmol/L (10/27/22 11: AM) Calcium Level Ionized [1.12-1.32 mmol/L] 1.71 mmol/L *HI* (10/27/22 11:31 AM) eGFR Non-AA [>=60] 13 *LOW* (10/27/22 11: AM) eGFR AA [>=60] 13 *LOW* (10/27/22 11: AM) Chloride Level [98-107 mmol/L] 93 mmol/L *LOW* (10/27/22 11: AM) Creatinine Level [0.55-1.02 mg/dL] 3.37 mg/dL *HI* (10/27/22 11:31 AM) PTH Intact [facility] [19-88 pg/mL] 9 pg/mL 2 *LOW* (10/27/22 11:31 AM) Vitamin D, 25-OH, Total [facility] [30-100 ng/m L] 27 ng/mL 3 *LOW* (10/27/22 11:32 AM) 1Result Comment: Called to and verbally verified by Siria May RN at 10/27/2022 12:44:02 EDT. 2Result Comment: Test performed or referred by The [address] [id number] 3Result Comment: Vitamin D 25,OH Interpretive Ranges: Deficiency: <10.0 ng/mL Insufficiency: 10.0 - 30.0 ng/mL Sufficiency: 30.0 - 100.0 ng/mL Toxicity: >100.0 ng/mL Test performed [place] [address] Social History Social History Type Response Tobacco Never tobacco user T obacco Use:. Sex Female Patient Care team information Care Team Personnel Name: Jeannine Fernandes MD Position: Physician Member Role: Informed Provider Address: Address: [address] Name: Nithin Bellamy LUMBER KILN OPERATOR Position: Physician Member Role: Nurse Practitioner Address: Address: [address] Name: Noreen York Position: Ambulatory - RN/SMOKE JUMPER SUPERVISOR (Sanjay) Member Role: Military Logistics Specialist Name: [employer] Walters LUMBER KILN OPERATOR Position: Physician Member Role: Nurse Practitioner Care Team Related Persons Name: ROMAN EARL Address: [place] [address] Address: Home [address] [place] [phone] Name: ROMAN EARL Address: [address] [place] [address] [address]: [address] [place] [phone]
--- OUTSIDE RECORDS SUMMARY | 2022-12-19 08:41 | XMS_ITS | Continuity of Care Document ---
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 Name Role Phone Jeannine Fernandes Primary Care Physician [phone] Noreen York Unavailable Unavailable Encounter [id number] Date(s): 11/17/22 - 11/17/[address] [phone] [place] Encounter Diagnosis Hypercalcemia(Discharge Diagnosis) - 11/17/22 Kidney disease, chronic, stage IV (GFR 15-29 ml/min)(Discharge Diagnosis) - 11/17/22 Discharge Disposition: Home or Self Care Attending Physician: Sang Dutton MD Admitting Physician: Sang Dutton MD Allergies, Adverse Reactions, Alerts Substance Reaction Severity Status codeine Rapid heart beat Unknown Active azithromycin Skin rash Unknown Active Assessment and Plan Future Appointments Future Scheduled Tests Laboratory* Magnesium Level 05/22/22 Functional Status 11/17/22 Other exposure to Infectious Disease Non e [...] corded varicella virus vaccine 06/07/00 Recorded Medications !-Levaquin 500 mg oral tablet 500 mg = 1 tab, Oral, every 48 hr, X 7 days, # 4 tab, 0 Refill(s), 11/18/22 13:24:00 EDT, [place] [place], 11/11/22 10:49:00 EDT, Height/Length Dosing, 62, kg, 11/11/22 10:49:00 EDT, Weight Dosing Start Date: 11/11/22 Stop Date: 11/18/22 Status: Ordered amLODIPine 5 mg oral tablet 5 mg = 1 tab, Oral, Daily, # 90 tab, 3 Refill(s), [place] [facility] [place], 09/23/22 17:19:00 EDT, Height/Length Dosing, 64.1, kg, 09/23/22 17:19:00 EDT, Weight Dosing Start Date: 10/20/22 Status: Ordered aspirin 81 mg oral tablet, chewable 1 tab, Oral, Daily, # 28 EA, 11 Refill(s), Pharmacy: [facility] [id number], 168, cm, 11/11/22 10:49:00 EDT, Height/Length Dosing, 62, kg, 11/11/22 10:49:00 EDT, Weight Dosing Start Date: 11/16/22 Status: Ordered atorvastatin 40 mg oral tablet 1 tab, Oral, Daily, # 84 tab, 0 Refill(s), [id number], [facility], cm, 06/14/22 22:46:00 EST, Height/Length Dosing, 83, kg, 06/14/22 22:46:00 EST, Weight Dosing Start Date: 08/24/22 Status: Ordered BD Pen Needle Mini U/F 31G X 5 MM MISC BD Pen Needle Mini U/F 31G X 5 MM MISC, See Instructions, USE FOUR TIMES A DAY DIRECTED, # 100 EA, 2 Refill(s), [facility]: [facility], 160, cm, 06/14/22 22:46:00 EST, Height/Length Dosing, 83, kg, 06/14/22 22:46:00 EST, Weight Dosing Start Date: 07/26/22 Status: Ordered BD UF MINI PEN NEEDLE [id number] BD UF MINI PEN NEEDLE [id number], See Instructions, USE DIRECTED FOUR TIMES A DAY NEEDED, # 100 EA, 3 Refill(s), Pharmacy: [facility] Start Date: 02/24/22 Status: Ordered BD UF Pen Needle Mini [id number] BD UF Pen Needle Mini [id number], Use one needle for each injection daily. (current Injections are 4 times daily), Supply, See instructions, # 100 EA, 2 Refill(s), Pharmacy: [facility] Start Date: 01/16/22 Status: Ordered Colace 100 mg oral capsule 100 mg = 1 cap, Oral, Daily, PRN as needed for constipation, # 90 cap, 0 Refill(s), [facility], 168, cm, 09/23/22 17:19:00 EDT, Height/Length Dosing, 64.1, kg, 09/23/22 17:19:00 EDT, Weight Dosing Start Date: 10/13/22 Status: Ordered ferrous gluconate 324 mg (38 mg elemental iron) oral tablet 1 tab, Oral, Daily, # 84 tab, 3 Refill(s), [facility]acy: [id number], 168, cm, 11/11/22 10:49:00 EDT, Height/Length Dosing, 62, kg, 11/11/22 10:49:00 EDT, Weight Dosing Start Date: 11/16/22 Status: Ordered folic acid 1 mg oral tablet 1 tab, Oral, Daily, # 84 tab, 3 Refill(s), Pharmacy: [facility] [address], 168, cm, 11/11/22 10:49:00 EDT, Height/Length Dosing, 62, kg, 11/11/22 10:49:00 EDT, Weight Dosing Start Date: 11/16/22 Status: Ordered Glucerna Glucerna, Twice a day, Supply, See instructions, # 60 EA, 3 Refill(s), Pharmacy: [facility] [place] Start Date: 07/13/22 Status: Ordered HumaLOG KwikPen [...] BID, # 56 tab, 3 Refill(s), Pharmacy: [id number], 168, cm, 09/01/22 14:46:00 EDT, Height/Length Dosing, 66.2, kg, 09/01/22 14:46:00 EDT, Weight Dosing Start Date: 09/22/22 Status: Ordered Melatonin 3 mg oral tablet 1 tab, Oral, every night at bedtime, # 28 tab, 3 Refill(s), Pharmacy: [facility] [id number], 168, cm, 09/01/22 14:46:00 EDT, Height/Length Dosing, [...] Daily, # 28 tab, 11 Refill(s), Pharmacy: [facility] [id number], 168, cm, 11/11/22 10:49:00 EDT, Height/Length Dosing, [...] DAY, # 22 g, 1 Refill(s), Pharmacy: [facility] Start Date: 03/23/22 Status: Ordered nitroglycerin 0.4 mg sublingual tablet 0.4 mg = 1 tab, SL, every 5 min, not to exceed 3 doses/15 min--if pain persists, seek medical attention, # 30 tab, 0 Refill(s), [place] [facility] [place], [place], 06/14/22 22:46:00 EST, Height/Length Dosing, [...] DAILY NEEDED, # 30 tab,0 Refill(s), [place] [facility] [place], [place], 05/16/22 21:31:00 EST, Height/Length Dosing, 70, kg, 05/16/22 21:31:00 EST, Weight Dosing Start Date: 06/04/22 Status: Ordered pantoprazole 40 mg oral delayed release tablet 1 tab, Oral, Daily, # 28 tab, 11 Refill(s), Pharmacy: [facility] [id number], 168, cm, 11/11/22 10:49:00 EDT, Height/Length Dosing, [...] DAILY, # 84 tab, 2 Refill(s), Pharmacy: [facility] [address], 168, cm, 09/01/22 14:46:00 EDT, Height/Length Dosing, [...] scan to determine ideal site for biopsy. From 10-13-2021 visit: BS have been better controlled, [...] given CKD and check renal f unction. From 10-13-2021 visit: At baseline, needs med refilled. 13om 03-28-2021 visit: e coli green sensitive on [...] Laboratory List Name Date Calcium Level Ionized 11/17/22 SARS-CoV-2 (COVID-19) RNA (ID Now) CBC w/ Diff 11/17/22 Comprehensive Metabolic Panel 11/17/22 Creatine Kinase 11/17/22 Automated Diff 11/17/22 Most recent to oldest [Reference Range]: 1 WBC [5.0-10.0 x10^3/mcL] 7.8 x10^3/mcL (11/17/22 1:01 PM) RBC [4.1-5.3 x10^6/mcL] 3.4 x10^6/mcL *LOW* (11/17/22 1:01 PM) Neutro Auto [40.0-75.0 %] 65.8 % (11/17/22 1:01 PM) Lymph Auto [20.0-50.0 %] 18.1 % *LOW* (11/17/22 1:01 PM) [place]ks Auto [2.0-15.0 %] 10.5 % (11/17/22 1:01 PM) Basophil Auto [0.0-1.0 %] 0.6 % (11/17/22 1:01 PM) BUN [7-18 mg/dL] 42 mg/dL *HI* (11/17/22 1:01 PM) Glucose Level [74-106 mg/dL] 154 mg/dL *HI* (11/17/22 1:01 PM) Potassium Level [3.5-5.1 mmol/L] 3.7 mmo l/L (11/17/22 1:01 PM) MCV [80.0-96.0 fL] 96.8 fL *HI* (11/17/22 1:01 PM) AST [15-37 unit/L] 7 unit/L *LOW* (11/17/22 1:01 PM) ALT [14-59 unit/L] 9 unit/L *LOW* (11/17/22 1:01 PM) MCHC [31.0-35.0 g/dL] 32.7 g/dL (11/17/22 1:01 PM) Sodium Level [136-145 mmol/L] 137 mmol/L (11/17/22 1:01 PM) Hct [37.0-47.0 %] 33.0 % *LOW* (11/17/22 1:01 PM) Calcium Level [8.5-10.1 mg/dL] 13.1 mg/d L 1 *CRIT* (11/17/22 1:01 PM) Albumin Level [3.4-5.0 g/dL] 3.0 g/dL *LOW* (11/17/22 1:01 PM) Protein Total [6.4-8.2 g/dL] 6.8 g/dL (11/17/22 1:01 PM) MCH [26.0-32.0 pg] 31.7 pg (11/17/22 1:01 PM) Neutro Absolute 5.1 x10^3/mcL *NA* (11/17/22 1:01 PM) Bilirubin Total [0.2-1.0 mg/dL] 0.4 mg/d L (11/17/22 1:01 PM) Hgb [12.0-16.0 g/dL] 10.8 g/dL *LOW* (11/17/22 1:01 PM) Alk Phos [46-146 unit/L] 95 unit/L (11/17/22 1:01 PM) Platelets [130-450 x10^3/mcL] 133 x10^3/ mcL (11/17/22 1:01 PM) CO2 [21-32 mmol/L] 31 mmol/L (11/17/22 1:01 PM) Calcium Level Ionized [1.12-1.32 mmol/L] 1.76 mmol/L *HI* (11/17/22 2:50 PM) eGFR Non-AA [>=60] 14 *LOW* (11/17/22 1:01 PM) eGFR AA [>=60] 14 *LOW* (11/17/22 1:01 PM) Chloride Level [98-107 mmol/L] 100 mmol/ L (11/17/22 1:01 PM) RDW-CV [11.5-14.5 %] 15.0 % *HI* (11/17/22 1:01 PM) Imm Gran Auto [0.0-0.9 %] 0.4 % (11/17/22 1:01 PM) Creatinine Level [0.55-1.02 mg/dL] 3.29 mg/dL *HI* (11/17/22 1:01 PM) SARS-CoV-2 (COVID-19) RNA (ID Now) [Not Detected] Not Detected (11/17/22 1:50 PM) Employed in healthcare? Unknown (11/17/22 1:50 PM) Symptomatic as defined by CDC? Unknown (11/17/22 1:50 PM) In ICU? Unknown (11/17/22 1:50 PM) Group care resident? Unknown (11/17/22 1:50 PM) status? Unknown (11/17/22 1:50 PM) Eos, Auto [1.0-6.0 %] 4.6 % (11/17/22 1:01 PM) CK [26-192 unit/L] 8 unit/L *LOW* (11/17/22 1:01 PM) 1Result Comment: Called to and verbally verified by Ana May RN at 11/17/2022 13:37:19 EDT. Vital Signs Most recent to oldest [Reference Range]: 1 2 Temperature Temporal Artery [36-38 Deg C ] 37 Deg C (11/17/22 4:07 PM) 36.5 Deg C (11/17/22 11:34 AM) Peripheral Pulse Rate [60-100 bpm] 65 bp m (11/17/22 4:07 PM) 69 bpm (11/17/22 11:34 AM) Respiratory Rate [12-24 br/min] 16 br/mi n (11/17/22 4:07 PM) 18 br/min (11/17/22 11:34 AM) Blood Pressure [90-140/60-90 mmHg] 120/6 0mmHg (11/17/22 4:07 PM) 126/65mmHg (11/17/22 11:34 AM) Weight Dosing 59.87 kg (11/17/22 11:54 AM) Weight Estimated 59.87 kg (11/17/22 11:34 AM) Height/Length Dosing 167.000 cm (11/17/22 11:54 AM) Height/Length Estimated 167.000 cm (11/17/22 11:34 AM) Social History Social History Type Response Tobacco Never tobacco user T obacco Use:. Sex Female Hospital Discharge Instructions Patient Education 11/17/2022 16:38:07 Chronic Kidney Disease, Adult Chronic Kidney Disease, Adult Chronic kidney disease (CKD) occurs when the kidneys are slowly and permanently damaged over a longperiod of time. The kidneys are a pair of organs that do many important jobs in the body, including: ??? Removing waste and extra fluid from the blood to make urine. ??? Making hormones that maintain the amount of fluid in tissues and blood vessels. ??? Maintaining the right amount of fluids and chemicals in the body. A small amount of kidney damage may not cause problems, but a large amount of damage may make it hard or impossible for the kidneys to work right. Steps must be taken to slow kidney damage or to stopit from getting worse. If steps are not taken, the kidneys may stop working permanently (end-stage renal disease, or ESRD). Most of the time, CKD does not go away, but it can often be controlled. People who have CKD are usually able to live full lives. What are the causes? The most common causes of this condition are diabetes and high blood pressure (hypertension). Other causes include: ??? Cardiovascular diseases. These affect the heart and blood vessels. ??? Kidney diseases. These include: ??? Glomerulonephritis, or inflammation of the tiny filters in the kidneys. ??? Interstitial nephritis. This is swelling of the small tubes of the kidneys and of the surrounding structures. ??? Polycystic kidney disease, in which clusters of fluid-filled sacs form within the kidneys. ??? Renal vascular disease. This includes disorders that affect the arteries and veins of the kidneys. ??? Diseases that affect the body's defense system (immune system). ??? A problem with urine flow. This may be caused by: ??? Kidney stones. ??? Cancer. ??? An enlarged prostate, in males. ??? A kidney infection or urinary tract infection (UTI) that keeps coming back. ??? Vasculitis. This is swelling or inflammation of the blood vessels. What increases the risk? Your chances of having kidney disease increase with age. The following factors may make you more likely to develop this condition: ??? A family history of kidney disease or kidney failure. Kidney failure means the kidneys can no longer work right. ??? Certain genetic diseases. ??? Taking medicines often that are damaging to the kidneys. ??? Being around or being in contact with toxic substances. ??? Obesity. ??? A history of tobacco use. What are the signs or symptoms? Symptoms of this condition include: ??? Feeling very tired (lethargic) and having less energy. ??? Swelling, or edema, of the face, legs, ankles, or feet. ??? Nausea or vomiting, or loss of appetite. ??? Confusion or trouble concentrating. ??? Muscle twitches and cramps, especially in the legs. ??? Dry, itchy skin. ??? A metallic taste in the mouth. ??? Producing less urine, or producing more urine (especially at night). ??? Shortness of breath. ??? Trouble sleeping. CKD may also result in not having enough red blood cells or hemoglobin in the blood (anemia) or having weak bones (bone disease). Symptoms develop slowly and may not be obvious until the kidney damage becomes severe. It is possible to have kidney disease for years without having symptoms. How is this diagnosed? This condition may be diagnosed based on: ??? Blood tests. ??? Urine tests. ??? Imaging tests, such as an ultrasound or a CT scan. ??? A kidney biopsy. This involves removing a sample of kidney tissue to be looked at under a microscope. Results from these tests will help to determine how serious the CKD is. How is this treated? There is no cure for most cases of this condition, but treatment usually relieves symptoms and prevents or slows the worsening of the disease. Treatment may include: ??? Diet changes, which may require you to avoid alcohol and foods that are high in salt, potassium, phosphorous, and protein. ??? Medicines. These may: ??? Lower blood pressure. ??? Control blood sugar (glucose). ??? Relieve anemia. ??? Relieve swelling. ??? Protect your bones. ??? Improve the balance of salts and minerals in your blood (electrolytes). ??? Dialysis, which is a type of treatment that removes toxic waste from the body. It may be neededif you have kidney failure. ??? Managing any other conditions that are causing your CKD or making it worse. Follow these instructions at home: Medicines ??? Take [id number] and prescription medicines only as told by your health care provider. Theamount of some medicines that you take may need to be changed. ??? Do not take any new medicines unless approved by your health care provider. Many medicines can make kidney damage worse. ??? Do not take any vitamin and mineral supplements unless approved by your health care provider. Many nutritional supplements can make kidney damage worse. Lifestyle ??? Do not use any products that contain nicotine or tobacco, such as cigarettes, e-cigarettes, andchewing tobacco. If you need help quitting, ask your health care provider. ??? If you drink alcohol: ??? Limit how much you use to: ??? 0???1 drink a day for women who are not . ??? 0???2 drinks a day for men. ??? Know how much alcohol is in your drink. In the [place] one drink equals one 12 oz bottle of beer (355 mL), one 5 oz glass of wine (148 mL), or one 1?? oz glass of hard liquor (44 mL). ??? Maintain a healthy weight. If you need help, ask your health care provider. General instructions ??? Follow instructions from your health care provider about eating or drinking restrictions, including any prescribed diet. ??? Track your blood pressure at home. Report changes in your blood pressure as told. ??? If you are being treated for diabetes, track your blood glucose levels as told. ??? Start or continue an exercise plan. Exercise at least 30 minutes a day, 5 days a week. ??? Keep your immunizations up to date as told. ??? Keep all follow-up visits. This is important. Where to find more information ??? [employer] of Kidney Patients: www.aakp.org ??? National Kidney Foundation: www.kidney.org ??? [employer]: www.akfinc.org ??? Life Options: www.lifeoptions.org ??? Kidney School: www.kidneyschool.org Contact a health care provider if: ??? Your symptoms get worse. ??? You develop new symptoms. Get help right away if: ??? You develop symptoms of ESRD. These include: ??? Headaches. ??? Numbness in your hands or feet. ??? Easy bruising. ??? Frequent hiccups. ??? Chest pain. ??? Shortness of breath. ??? Lack of menstrual periods, in women. ??? You have a fever. ??? You are producing less urine than usual. ??? You have pain or bleeding when you urinate or when you have a bowel movement. These symptoms may represent a serious problem that is an emergency. Do not wait to see if the symptoms will go away. Get medical help right away. Call your local emergency services (911 in the [place] Do not drive yourself to the hospital. Summary ??? Chronic kidney disease (CKD) occurs when the kidneys become damaged slowly over a long period of time. ??? The most common causes of this condition are diabetes and high blood pressure (hypertension). ??? There is no cure for most cases of CKD, but treatment usually relieves symptoms and prevents orslows the worsening of the disease. Treatment may include a combination of lifestyle changes, medicines, and dialysis. This information is not intended to replace advice given to you by your health care provider. Make sure you discuss any questions you have with your health care provider. Document Revised: 08/28/2020 Document Reviewed: 08/28/2020 Elsevier Patient Education ?? 2021 [employer] Follow Up Care 11/17/2022 11:34:44 With:Follow up with primary care provider Address: When:1 to 2 weeks Physician Emergency department Note * Elif Mckoy MD: PERFORM Event Display: ED Note Physician Authored Date: [id number] MARIA INES BROOKS :1945 Age:77 years Sex:Female Visit Date:11/17/2022 Primary Care Physician: Jeannine Fernandes MD Basic Information Time Seen: Elif Mckoy MD / 11/17/2022 12:41 Chief Complaint Pt sent over from PCP for elevated calcium, low vitamin d low, high blood sugars, and low BP, HAs, stomach pain. No new labs drawn today, calcium level was from last ED visit. History Of Present Illness: Patient had been at her primary care office Dr. Jeannine Molina this morning??who had reached out to??[facility] nephrology they had recommended the patient be admitted??patient and however??patient had already left Dr. Vogt's office??and has been told to come to the emergency depa rtment.?? Nephrology had suggested admission Dr. Vogt??said because of??hypercalcemia??last known level of 13 IV fluids??they were worried about malignancy for patient??patient also with recent elevated blood sugars despite??insulin adjustments patient does live at home with her cat.?? Patient denies any fevers or chills??she does??get headaches most days??none currently??no ear nose or throatpain no chest pain??no cough does have shortness of breath at times when she??goes to look at her 5or 6 plants??she states.?? Chronic ongoing abdominal pain that has been ongoing for months. ??No urinary issues no extremity edema no skin rashes patient does state that her legs do get tired??a lot of the times. Review of Systems: see hpi for ros Physical Exam Vitals & Measurements T:??37?C ??(Temporal Artery)?? HR:??65??(Peripheral)?? RR:??16?? BP:??120/60?? SpO2:??98%?? HT:??167.000??cm?? WT:??59.87??kg??(Estimated)?? Pain Score:??10?? O2 Therapy:??Room air?? General: Alert and oriented, well nourished,?No??acute distress Eye: PER?Normal??conjunctiva,??No??scleral icterus HENT: Normocephalic,??nontraumatic??Normal hearing Lungs: Clear to auscultation,?Non-labored?? respiration Heart:?Normal?? rate,?Regular??rhythm,?No??murmur,?No??gallop,?No??edema Chest: wall excursion wnl no abnormal movements no obvious deformities Abdomen: Soft, chronic tenderness??upper abdomen mid abdomen??no rebound??no lower abdomen tenderness??small firm area??approximately 1 x 6 cm right upper quadrant??more superficial than??abdominal wall muscles patient thinks this is from one of her falls??that is resolving??likely resolving hematoma, non- distended,?Normal?? bowel sounds,?No??masses Musculoskeletal:?Normal?? range of motion and strength,?No??tenderness,?No??swelling Skin: Skin is warm, dry and pink,?No??rashes,?No??lesions Neurologic: Awake, alert and oriented X4 Psychiatric: Cooperative, appropriate mood and affect Medical Decision Making: For MDM please see under assessment and plan Spoke with on-call??cabin crew??Dr. Joanne Albarado who suggested??that since her color Dr. Hughes had recommended for patient to be admitted??the patient needed to be admitted with IV fluids and pamidronate??as recommended by ??Saul??she recommended to make sure that it was renally dosed. ??Have called??our pharmacy to ask them??to recommended dose. Procedure No Qualifying Data Assessment/Plan 1.??Hypercalcemia??E83.52 Patient with elevated calciums she has had an elevated calcium??1.4 on October 29 and then has been over 13??throughout??the 3??checks that she has had in November.?? Nephrology at [facility] suggested that patient should be admitted??[facility]??and they state there are no beds available at [facility].?? Phone call was placed??to discuss this with patient's primary care provider however have not??received a phone call back. ??Patient will be discharged home??and order is written for patient to have??pamidronate 60 mg IV??through OTC.?? Patient has received 1000 mL of normal saline herein the emergency department.?? Patient does not seem to have specific new symptoms??given her abdominal pain has been chronic ongoing for several years??a??her back pain seems nonspecific. Ordered: Discharge Patient, 11/17/22 17:37:00 EDT, Home Independently, Constant Indicator ?? 2.??Kidney disease, chronic, stage IV (GFR 15-29 ml/min)??N18.4 Patient with chronic kidney disease??that has??remained unchanged??patient will continue to try to??stay hydrated??and this will need to be continued to be monitored. Ordered: Discharge Patient, 11/17/22 17:37:00 EDT, Home Independently, Constant Indicator ?? Orders: Review Orders for Potential Auths., 11/17/22 12:58:34 EDT Urinalysis with Micro if Indicated and Culture if Indicated, Urine, Stat Collect, 11/17/22 12:58:00EDT, Once, Nurse collect, Print Label Patient Education Chronic Kidney Disease, Adult Follow Up With When Contact Information Follow up with primary care provider Within 1 to 2 weeks Additional Instructions: Medication Reconciliation Unchanged amLODIPine (amLODIPine [...] for Prescription (BD UF Pen Needle Mini [id number])Use one needle for each injection daily. (current [...] a day before meals. Refills: 3. ?? levoFLOXacin (!-Levaquin 500 mg oral tablet)1 tab Oral (given by mouth) every 48 hours for 7 Days. Refills: 0. ?? magnesium oxide (magnesium oxide 400 mg [...] Other Prescription (BD UF MINI PEN NEEDLE [id number])USE DIRECTED FOUR TIMES A DAY NEEDED. Refills: [...] (06/07/1973)???Total abdominal hysterectomy (06/07/1971) Medication Administration Given NS bolus, 500 mL, IV Piggyback NS bolus, 500 mL, IV Piggyback Allergies azithromycin??(Skin rash) codeine??(Rapid heart beat) Social [...] and Differential?? LATEST RESULTS?? HISTORICAL RESULTS?? WBC?? 11/17/22 13:01?? 7.8?? 11/11/22?? 7.4?? RBC?? 11/17/22 13:01?? 3.4 ??Low?? 11/11/22?? 3.4 ??Low?? Hgb?? 11/17/22 13:01?? 10.8 ??Low?? 11/11/22?? 10.9 ??Low?? Hct?? 11/17/22 13:01?? 33.0 ??Low?? 11/11/22?? 32.5 ??Low?? MCV?? 11/17/22 13:01?? 96.8 ??High?? 11/11/22?? 94.8?? MCH?? 11/17/22 13:01?? 31.7?? 11/11/22?? 31.8?? MCHC?? 11/17/22 13:01?? 32.7?? 11/11/22?? 33.5?? RDW-CV?? 11/17/22 13:01?? 15.0 ??High?? 11/11/22?? 14.9 ??High?? Platelets?? 11/17/22 13:01?? 133?? 11/11/22?? 150?? Neutro Auto?? 11/17/22 13:01?? 65.8?? 11/11/22?? 70.9?? Lymph Auto?? 11/17/22 13:01?? 18.1 ??Low?? 11/11/22?? 14.7 ??Low?? [place] Auto?? 11/17/22 13:01?? 10.5?? 11/11/22?? 8.9?? Eos, Auto?? 11/17/22 13:01?? 4.6?? 11/11/22?? 4.3?? Basophil Auto?? 11/17/22 13:01?? 0.6?? 11/11/22?? 0.8?? Imm Gran Auto?? 11/17/22 13:01?? 0.4?? 11/11/22?? 0.4?? Neutro Absolute?? 11/17/22 13:01?? 5.1?? 11/11/22?? 5.2? Routine Chemistry?? LATEST RESULTS?? HISTORICAL RESULTS?? Sodium Level?? 11/17/22 13:01?? 137?? 11/11/22?? 135 ??Low?? Potassium Level?? 11/17/22 13:01?? 3.7?? 11/11/22?? 3.8?? Chloride Level?? 11/17/22 13:01?? 100?? 11/11/22?? 99?? CO2?? 11/17/22 13:01?? 31?? 11/11/22?? 29?? Alk Phos?? 11/17/22 13:01?? 95?? 11/11/22?? 104?? AST?? 11/17/22 13:01?? 7 ??Low?? 11/11/22?? 16?? ALT?? 11/17/22 13:01?? 9 ??Low?? 11/11/22?? 14?? BUN?? 11/17/22 13:01?? 42 ??High?? 11/11/22?? 37 ??High?? Glucose Level?? 11/17/22 13:01?? 154 ??High?? 11/11/22?? 275 ??High?? Creatinine Level?? 11/17/22 13:01?? 3.29 ??High?? 11/11/22?? 3.14 ??High?? eGFR AA?? 11/17/22 13:01?? 14 ??Low?? 11/11/22?? 15 ??Low?? eGFR Non-AA?? 11/17/22 13:01?? 14 ??Low?? 11/11/22?? 15 ??Low?? Calcium Level?? 11/17/22 13:01?? 13.1 ??Critical?? 11/11/22?? 13.0 ??Critical?? Protein Total?? 11/17/22 13:01?? 6.8?? 11/11/22?? 7.2?? Albumin Level?? 11/17/22 13:01?? 3.0 ??Low?? 11/11/22?? 3.0 ??Low?? Bilirubin Total?? 11/17/22 13:01?? 0.4?? 11/11/22?? 0.5?? Calcium Level Ionized?? 11/17/22 14:50?? 1.76 ??High?? 11/05/22?? 1.65 ??High? Cardiac Isoenzymes?? LATEST RESULTS?? HISTORICAL RESULTS?? CK?? 11/17/22 13:01?? 8 ??Low?? 08/31/22?? 69? Infectious Disease?? LATEST RESULTS?? HISTORICAL RESULTS?? SARS-CoV-2 (COVID-19) RNA (ID Now)?? 11/17/22 13:50?? Not Detected? 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 11/17/22 13:50?? Unknown?? 08/31/22?? Unknown?? Symptomatic as defined by CDC??? 11/17/22 13:50?? Unknown?? 08/31/22?? Unknown?? In ICU??? 11/17/22 13:50?? Unknown?? 08/31/22?? Unknown?? Group care resident??? 11/17/22 13:50?? Unknown?? 08/31/22?? Unknown?? status??? 11/17/22 13:50?? Unknown?? 08/31/22?? Unknown? Electronically Signed on 11/17/22 05:49 PM Elif Mckoy MD Emergency department Discharge instructions * Elif Mckoy MD: PERFORM Event Display: ED Discharge Information Authored Date: [id number] MARIA INES BROOKS :1945 Age:77 years Sex:Female Visit Date:11/17/2022 Primary Care Physician: Jeannine Fernandes MD Discharge Instructions We would like to thank you for allowing us to assist you with your healthcare needs. The following includes patient education materials and information regarding your injury/illness. Diagnosis from Today's Visit Hypercalcemia Kidney disease, chronic, stage IV (GFR 15-29 ml/min) Discharge Vitals Temperature??(Temporal Artery) 98.6 ??F (37 ??C) Heart Rate??(Peripheral) 65 Respiratory Rate?? 16 Blood Pressure?? 120/60?? Height?? 65.75 in (167.000 cm) Weight??(Estimated) 132.01 lb (59.87 kg) Allergies azithromycin??(Skin rash) codeine??(Rapid heart beat) What to Do Next Instructions from Your Care Team Try to stay hydrated.?? Drink plenty of fluids.?? If you have worsening symptoms please return to the emergency department??or see primary care provider. You Need to Schedule the Following Appointments Follow Up with??Follow up with primary care provider When:??Within 1 to 2 weeks Upcoming Scheduled Appointments Wednesday 11:30 AM EDT ?? Where: [facility] Status: Confirmed Wednesday 11:30 AM EDT ?? Where: [facility] Status: Confirmed Wednesday 10:00 AM EDT ?? You were [...] for Prescription (BD UF Pen Needle Mini [id number]) See instructions DM2 (diabetes mellitus, type 2) [...] 3 times a day before meals Unchanged levoFLOXacin (!-Levaquin 500 mg oral tablet) 1 tab Oral (given by mouth) Every 48 hours Urinary tract infection Hyperglycemia Duration: 7 Days Unchanged magnesium oxide (magnesium oxide 400 mg [...] Other Prescription (BD UF MINI PEN NEEDLE [id number]) See instructions USE DIRECTED FOUR TIMES A [...] (given by mouth) Every day Education Materials Chronic Kidney Disease, Adult Chronic kidney disease (CKD) occurs when the kidneys are slowly and permanently damaged over a longperiod of time. The kidneys are a pair of organs that do many important jobs in the body, including: ? Removing waste and extra fluid from the blood to make urine. ? Making hormones that maintain the amount of fluid in tissues and blood vessels. ? Maintaining the right amount of fluids and chemicals in the body. A small amount of kidney damage may not cause problems, but a large amount of damage may make it hard or impossible for the kidneys to work right. Steps must be taken to slow kidney damage or to stopit from getting worse. If steps are not taken, the kidneys may stop working permanently (end-stage renal disease, or ESRD). Most of the time, CKD does not go away, but it can often be controlled. People who have CKD are usually able to live full lives. What are the causes? The most common causes of this condition are diabetes and high blood pressure (hypertension). Other causes include: ? Cardiovascular diseases. These affect the heart and blood vessels. ? Kidney diseases. These include: ? Glomerulonephritis, or inflammation of the tiny filters in the kidneys. ? Interstitial nephritis. This is swelling of the small tubes of the kidneys and of the surrounding structures. ? Polycystic kidney disease, in which clusters of fluid-filled sacs form within the kidneys. ? Renal vascular disease. This includes disorders that affect the arteries and veins of the kidneys. ? Diseases that affect the body's defense system (immune system). ? A problem with urine flow. This may be caused by: ? Kidney stones. ? Cancer. ? An enlarged prostate, in males. ? A kidney infection or urinary tract infection (UTI) that keeps coming back. ? Vasculitis. This is swelling or inflammation of the blood vessels. What increases the risk? Your chances of having kidney disease increase with age. The following factors may make you more likely to develop this condition: ? A family history of kidney disease or kidney failure. Kidney failure means the kidneys can no longer work right. ? Certain genetic diseases. ? Taking medicines often that are damaging to the kidneys. ? Being around or being in contact with toxic substances. ? Obesity. ? A history of tobacco use. What are the signs or symptoms? Symptoms of this condition include: ? Feeling very tired (lethargic) and having less energy. ? Swelling, or edema, of the face, legs, ankles, or feet. ? Nausea or vomiting, or loss of appetite. ? Confusion or trouble concentrating. ? Muscle twitches and cramps, especially in the legs. ? Dry, itchy skin. ? A metallic taste in the mouth. ? Producing less urine, or producing more urine (especially at night). ? Shortness of breath. ? Trouble sleeping. CKD may also result in not having enough red blood cells or hemoglobin in the blood (anemia) or having weak bones (bone disease). Symptoms develop slowly and may not be obvious until the kidney damage becomes severe. It is possible to have kidney disease for years without having symptoms. How is this diagnosed? This condition may be diagnosed based on: ? Blood tests. ? Urine tests. ? Imaging tests, such as an ultrasound or a CT scan. ? A kidney biopsy. This involves removing a sample of kidney tissue to be looked at under a microscope. Results from these tests will help to determine how serious the CKD is. How is this treated? There is no cure for most cases of this condition, but treatment usually relieves symptoms and prevents or slows the worsening of the disease. Treatment may include: ? Diet changes, which may require you to avoid alcohol and foods that are high in salt, potassium, phosphorous, and protein. ? Medicines. These may: ? Lower blood pressure. ? Control blood sugar (glucose). ? Relieve anemia. ? Relieve swelling. ? Protect your bones. ? Improve the balance of salts and minerals in your blood (electrolytes). ? Dialysis, which is a type of treatment that removes toxic waste from the body. It may be needed if you have kidney failure. ? Managing any other conditions that are causing your CKD or making it worse. Follow these instructions at home: Medicines ? Take [id number] and prescription medicines only as told by your health care provider. The amount of some medicines that you take may need to be changed. ? Do not take any new medicines unless approved by your health care provider. Many medicines can makekidney damage worse. ? Do not take any vitamin and mineral supplements unless approved by your health care provider. Many nutritional supplements can make kidney damage worse. Lifestyle ? Do not use any products that contain nicotine or tobacco, such as cigarettes, e- cigarettes, and chewing tobacco. If you need help quitting, ask your health care provider. ? If you drink alcohol: ? Limit how much you use to: ? 0???1 drink a day for women who are not . ? 0???2 drinks a day for men. ? Know how much alcohol is in your drink. In the [place] one drink equals one 12 oz bottle of beer (355mL), one 5 oz glass of wine (148 mL), or one 1?? oz glass of hard liquor (44 mL). ? Maintain a healthy weight. If you need help, ask your health care provider. General instructions ? Follow instructions from your health care provider about eating or drinking restrictions, includingany prescribed diet. ? Track your blood pressure at home. Report changes in your blood pressure as told. ? If you are being treated for diabetes, track your blood glucose levels as told. ? Start or continue an exercise plan. Exercise at least 30 minutes a day, 5 days a week. ? Keep your immunizations up to date as told. ? Keep all follow-up visits. This is important. Where to find more information ? [employer] Association of Kidney Patients: www.aakp.org ? National Kidney Foundation: www.kidney.org ? [employer] Kidney Fund: www.akfinc.org ? Life Options: www.lifeoptions.org ? Kidney School: www.kidneyschool.org Contact a health care provider if: ? Your symptoms get worse. ? You develop new symptoms. Get help right away if: ? You develop symptoms of ESRD. These include: ? Headaches. ? Numbness in your hands or feet. ? Easy bruising. ? Frequent hiccups. ? Chest pain. ? Shortness of breath. ? Lack of menstrual periods, in women. ? You have a fever. ? You are producing less urine than usual. ? You have pain or bleeding when you urinate or when you have a bowel movement. These symptoms may represent a serious problem that is an emergency. Do not wait to see if the symptoms will go away. Get medical help right away. Call your local emergency services (911 in the [place] Do not drive yourself to the hospital. Summary ? Chronic kidney disease (CKD) occurs when the kidneys become damaged slowly over a long period of time. ? The most common causes of this condition are diabetes and high blood pressure (hypertension). ? There is no cure for most cases of CKD, but treatment usually relieves symptoms and prevents or slows the worsening of the disease. Treatment may include a combination of lifestyle changes, medicines, and dialysis. This information is not intended to replace advice given to you by your health care provider. Make sure you discuss any questions you have with your health care provider. Document Revised: 08/28/2020 Document Reviewed: 08/28/2020 [employer] Patient Education ?? 2021 [employer] Tests Performed Medications and Immunizations Administered Given NS bolus, 500 mL, IV Piggyback NS bolus, 500 mL, IV Piggyback Lab Test Name Test Result Date/Time WBC 7.8 x10^3/mcL 11/17/2022 13:01 EDT RBC 3.4 x10^6/mcL 11/17/2022 13:01 EDT Hgb 10.8 g/dL 11/17/2022 13:01 EDT Hct 33.0 % 11/17/2022 13:01 EDT MCV 96.8 fL 11/17/2022 13:01 EDT MCH 31.7 pg 11/17/2022 13:01 EDT MCHC 32.7 g/dL 11/17/2022 13:01 EDT RDW-CV 15.0 % 11/17/2022 13:01 EDT Platelets 133 x10^3/mcL 11/17/2022 13:01 EDT Neutro Auto 65.8 % 11/17/2022 13:01 EDT Lymph Auto 18.1 % 11/17/2022 13:01 EDT Berks Auto 10.5 % 11/17/2022 13:01 EDT Eos, Auto 4.6 % 11/17/2022 13:01 EDT Basophil Auto 0.6 % 11/17/2022 13:01 EDT Imm Gran Auto 0.4 % 11/17/2022 13:01 EDT Neutro Absolute 5.1 x10^3/mcL 11/17/2022 13:01 EDT Sodium Level 137 mmol/L 11/17/2022 13:01 EDT Potassium Level 3.7 mmol/L 11/17/2022 13:01 EDT Chloride Level 100 mmol/L 11/17/2022 13:01 EDT CO2 31 mmol/L 11/17/2022 13:01 EDT Alk Phos 95 unit/L 11/17/2022 13:01 EDT AST 7 unit/L 11/17/2022 13:01 EDT ALT 9 unit/L 11/17/2022 13:01 EDT BUN 42 mg/dL 11/17/2022 13:01 EDT Glucose Level 154 mg/dL 11/17/2022 13:01 EDT Creatinine Level 3.29 mg/dL 11/17/2022 13:01 EDT eGFR AA 14 11/17/2022 13:01 EDT eGFR Non-AA 14 11/17/2022 13:01 EDT Calcium Level 13.1 mg/dL 11/17/2022 13:01 EDT Protein Total 6.8 g/dL 11/17/2022 13:01 EDT Albumin Level 3.0 g/dL 11/17/2022 13:01 EDT Bilirubin Total 0.4 mg/dL 11/17/2022 13:01 EDT Calcium Level Ionized 1.76 mmol/L 11/17/2022 14:50 EDT CK 8 unit/L 11/17/2022 13:01 EDT SARS-CoV-2 (COVID-19) RNA (ID Now) Not Detected 11/17/2022 13:50 EDT Employed in healthcare? Unknown 11/17/2022 13:50 EDT Symptomatic as defined by CDC? Unknown 11/17/2022 13:50 EDT In ICU? Unknown 11/17/2022 13:50 EDT Group care resident? Unknown 11/17/2022 13:50 EDT status? Unknown 11/17/2022 13:50 EDT Patient/Hotel Registration Clerk Signature Patient Name:MARIA INES BROOKS I have received this information and my questions have been answered. Patient/Hotel Registration Clerk Name: Patient/Hotel Registration Clerk Signature: Relationship to Patient: Witness Name/Signature: Date: Electronically Signed on: 11/17/2022 17:48 EDTSigned by:AMS Emergency department Note * Anel Wu: PERFORM Event Display: ED Notes Authored Date: [id number] * Clarice Rondon: PERFORM Event Display: ED Notes Authored Date: [id number] Patient Care team information Care Team Personnel Name: Jeannine Fernandes MD Position: Physician Member Role: Informed Provider Address: Address: [address] Name: Nithin Bellamy STATE ATTORNEY Position: Physician Member Role: Nurse Practitioner Address: Address: [facility] [address], [place] [id number] [place] [address] Name: Noreen York Position: Ambulatory - RN/CHEMICAL EQUIPMENT CONTROLLER (Sanjay) Member Role: Casing Worker Name: Grupo Walters STATE ATTORNEY Position: Physician Member Role: Nurse Practitioner Name: Juju Pena RN Position: Nurse Member Role: ED Nurse Name: Elif Mckoy MD Position: Physician Member Role: ED Physician Address: Address: [address] [place] [address] Care Team Related Persons Name: ROMAN EARL Address: [facility] [address] [place] [address] Address: Home [address] [place] [phone] Name: ROMAN EARL Address: Alternate [address] [place] [address] Address: Home [address] [place] [phone]
--- OUTSIDE RECORDS SUMMARY | 2022-12-19 08:41 | XMS_ITS | Continuity of Care Document ---
Author Name Unknown Organization [facility] Address [address] [place] [address] Care Team Providers Care Continuous Washer Operator Name Role Phone Jeannine Fernandes Primary Care Physician Noreen York Unavailable Unavailable Encounter [facility] Date(s): 11/19/22 - 11/19/[address] [address] Discharge Disposition: Home or Self Care Attending Physician: Elif Mckoy MD Admitting Physician: Elif Mckoy MD Referring Physician: Elif Mckoy MD Allergies, Adverse Reactions, Alerts Substance Reaction [...] Daily, # 90 tab, 3 Refill(s), Pharmacy: [facility] , 168, cm, 09/23/22 17:19:00 EDT, Height/Length Dosing, 64.1, kg, 09/23/22 17:19:00 EDT, Weight Dosing Start Date: 10/20/22 Status: Ordered aspirin 81 mg oral tablet, chewable 1 tab, Oral, Daily, # 28 EA, 11 Refill(s), Pharmacy: [facility], 168, cm, 11/11/22 10:49:00 EDT, Height/Length Dosing, 62, kg, 11/11/22 10:49:00 EDT, Weight Dosing Start Date: 11/16/22 Status: Ordered atorvastatin 40 mg oral tablet 1 tab, Oral, Daily, # 84 tab, 0 Refill(s), Pharmacy: [facility], 160, cm, 06/14/22 22:46:00 EST, Height/Length Dosing, 83, kg, 06/14/22 22:46:00 EST, Weight Dosing Start Date: 08/24/22 Status: Ordered BD Pen Needle Mini U/F 31G X 5 MM MISC BD Pen Needle Mini U/F 31G X 5 MM MISC, See Instructions, USE FOUR TIMES A DAY DIRECTED, # 100 EA, 2 Refill(s), Pharmacy: [facility], 160, cm, 06/14/22 22:46:00 EST, Height/Length Dosing, 83, kg, 06/14/22 22:46:00 EST, Weight Dosing Start Date: 07/26/22 Status: Ordered BD UF MINI PEN NEEDLE [id number] BD UF MINI PEN NEEDLE [id number], See Instructions, USE DIRECTED FOUR TIMES A DAY NEEDED, # 100 EA, 3 Refill(s), Pharmacy: [id number] Start Date: 02/24/22 Status: Ordered BD UF Pen Needle Mini [id number] BD UF Pen Needle Mini [id number], Use one needle for each injection daily. (current Injections are 4 times daily), Supply, See instructions, # 100 EA, 2 Refill(s), Pharmacy: [facility] Start Date: 01/16/22 Status: Ordered Colace 100 mg oral capsule 100 mg = 1 cap, Oral, Daily, PRN as needed for constipation, # 90 cap, 0 Refill(s), [facility], 168, cm, 09/23/22 17:19:00 EDT, Height/Length Dosing, 64.1, kg, 09/23/22 17:19:00 EDT, Weight Dosing Start Date: 10/13/22 Status: Ordered ferrous gluconate 324 mg (38 mg elemental iron) oral tablet 1 tab, Oral, Daily, # 84 tab, 3 Refill(s), Pharmacy: [facility], 168, cm, 11/11/22 10:49:00 EDT, Height/Length Dosing, 62, kg, 11/11/22 10:49:00 EDT, Weight Dosing Start Date: 11/16/22 Status: Ordered folic acid 1 mg oral tablet 1 tab, Oral, Daily, # 84 tab, 3 Refill(s), Pharmacy: [facility], 168, cm, 11/11/22 10:49:00 EDT, Height/Length Dosing, 62, kg, 11/11/22 10:49:00 EDT, Weight Dosing Start Date: 11/16/22 Status: Ordered Glucerna Glucerna, Twice a day, Supply, See instructions, # 60 EA, 3 Refill(s), [facility] Start Date: 07/13/22 Status: Ordered HumaLOG KwikPen 100 units/mL injectable solution 5 units =, Subcutaneous, TID(AC), # 3 mL, 3 Refill(s), Pharmacy: [facility], 167, cm,10/29/22 16:36:00 EDT, Height/Length Dosing, 64.86, kg, 10/29/22 16:36:00 EDT, Weight Dosing Start Date: 11/09/22 Status: Ordered Levemir FlexTouch 100 units/mL subcutaneous solution 15 units =, Subcutaneous, every night at bedtime Start Date: 05/13/22 Status: Ordered magnesium oxide 400 mg (241.3 mg elemental magnesium) oral tablet 1 tab, Oral, BID, # 56 tab, 3 Refill(s), Pharmacy: [facility], 168, cm, 09/01/22 14:46:00 EDT, Height/Length Dosing, 66.2, kg, 09/01/22 14:46:00 EDT, Weight Dosing Start Date: 09/22/22 Status: Ordered Melatonin 3 mg oral tablet 1 tab, Oral, every night at bedtime, # 28 tab, 3 Refill(s), Pharmacy: [facility], 168, cm, 09/01/22 14:46:00 EDT, Height/Length Dosing, 66.2, kg, 09/01/22 14:46:00 EDT, Weight Dosing Start Date: 09/22/22 Status: Ordered memantine 5 mg oral tablet 5 mg = 1 tab, Oral, BID, # 60 tab, 5 Refill(s), Pharmacy: [facility], 168, cm, 09/23/22 17:19:00 EDT, Height/Length Dosing, 64.1, kg, 09/23/22 17:19:00 EDT, Weight Dosing Start Date: 10/23/22 Status: Ordered Metoprolol Succinate ER 25 mg oral tablet, extended release 1 tab, Oral, Daily, # 28 tab, 11 Refill(s), Pharmacy: [facility], 168, cm, 11/11/22 10:49:00 EDT, Height/Length Dosing, 62, kg, 11/11/22 10:49:00 EDT, Weight Dosing Start Date: 11/16/22 Status: Ordered MiraLax oral powder for reconstitution 17 g, Oral, Daily, PRN constipation, # 12 EA, 5 Refill(s), Pharmacy: [facility], 168,cm, 09/23/22 17:19:00 EDT, Height/Length Dosing, 64.1, kg, 09/23/22 17:19:00 EDT, Weight Dosing Start Date: 10/23/22 Status: Ordered mupirocin 2% topical ointment See Instructions, APPLY A SMALL AMOUNT TOPICALLY TO AFFECTED AREA(S) THREE TIMES A DAY, # 22 g, 1 Refill(s), Pharmacy: [facility] Start Date: 03/23/22 Status: Ordered nitroglycerin [...] 30 tab,0 Refill(s), Pharmacy: [facility], 168, cm, 05/16/22 21:31:00 EST, Height/Length Dosing, 70, kg, 05/16/22 21:31:00 EST, Weight Dosing Start Date: 06/04/22 Status: Ordered pantoprazole 40 mg oral delayed release tablet 1 tab, Oral, Daily, # 28 tab, 11 Refill(s), Pharmacy: [facility], 168, cm, 11/11/22 10:49:00 EDT, Height/Length Dosing, 62, kg, 11/11/22 10:49:00 EDT, Weight Dosing Start Date: 11/16/22 Status: Ordered propranolol 20 mg oral tablet 3 tab, Oral, BID, # 180 tab, 5 Refill(s), Pharmacy: [facility], 168, cm, 09/23/22 17:19:00 EDT, Height/Length Dosing, 64.1, kg, 09/23/22 17:19:00 EDT, Weight Dosing Start Date: 10/23/22 Status: Ordered venlafaxine 150 mg oral capsule, extended release 150 mg = 1 cap, Oral, Daily, # 90 cap, 3 Refill(s), Pharmacy: [facility], 160, cm, 08/31/22 11:50:00 EDT, Height/Length Dosing, 36.2, kg, 08/31/22 11:50:00 EDT, Weight Dosing Start Date: 09/01/22 Status: Ordered Vitamin B2 100 mg oral tablet See Instructions, TAKE 1 TABLET BY MOUTH DAILY, # 84 tab, 2 Refill(s), Pharmacy: [facility], 168, cm, 09/01/22 14:46:00 EDT, Height/Length Dosing, [...] tract infectious disease 13 Confirmed 03/26/21 [facility]: Stable, monitor, c/w iron supplementation. 2From 07-11-2018 visit: Recommend trialing to cut down on pantoprazole as tolerated. Can cut pills in half versus alternating every other day. [facility]: Renal decline has slowed and is now presumably stable. We discussed hydration and avoidance of nephrotoxic agents. We will continue to monitor renal function. [facility] visit: Well controlled, c/w venlafaxine 150 mg QD. Pt was on both venlafaxine and amitrytyline but this was dc'ed due to risk of serotonin syndrome. Mood at baseline. 5Problem added by Rule (IC_COVID19_AUTO_PROBLEM) following SARS-CoV-2 (COVID- 19)/Flu/RSV (GeneXpert)from Nasal Swab collected on 31-AUG-2022 11:58:00 EDT tested positive for COVID-19. [facility]: Improvement w/ propanolol, which [...] 3 Temperature Temporal Artery [36-38 Deg C] 36.8 Deg C (11/19/22 4:12 PM) 36.9 Deg C (11/19/22 3:05 PM) 37.2 Deg C (11/19/22 1:49 PM) Peripheral Pulse Rate [60-100 bpm] 64 bpm (11/19/22 4:12 PM) 63 bpm (11/19/22 3:05 PM) 65 bpm (11/19/22 1:49 PM) Respiratory Rate [12-24 br/min] 16 br/min (11/19/22 4:12 PM) 16 br/min (11/19/22 3:05 PM) 16 br/min (11/19/22 1:49 PM) Blood Pressure [90-140/60-90 mmHg] 107/45mmHg (11/19/22 4:12 PM) 103/47mmHg (11/19/22 3:05 PM) 98/49mmHg (11/19/22 1:49 PM) Mean Arterial Pressure Cuff 61 mmHg (11/19/22 4:12 PM) 62 mmHg (11/19/22 3:05 PM) 64 mmHg (11/19/22 1:49 PM) Blood Pressure Location Left arm (11/19/22 4:12 PM) Left arm (11/19/22 3:05 PM) Left arm (11/19/22 1:49 PM) Blood Pressure Method Automatic (11/19/22 4:12 PM) Automatic (11/19/22 3:05 PM) Automatic (11/19/22 1:49 PM) Social History Social History Type Response Tobacco Never tobacco user T obacco Use:. Sex Female Patient Care team information Care Team Personnel Name: Jeannine Fernandes MD Position: Physician Member Role: Informed Provider Address: Address: [address] Name: Nithin Bellamy CLAY MACHINE OPERATOR Position: Physician Member Role: Nurse Practitioner Address: Address: [address] Name: Noreen York Position: Ambulatory - RN/WOODEN BOAT BUILDER ([facility]) Member Role: Shoe Sprayer Name: Grupo Walters CLAY MACHINE OPERATOR Position: Physician Member Role: Nurse Practitioner Care Team Related Persons Name: ROMAN EARL Address: [address] [place] [address] Address: [place] [address] [place] [phone] Name: ROMAN EARL Address: [place] [address] [place] [address] Address: [place] [address] [place] [phone]
--- OUTSIDE RECORDS SUMMARY | 2022-12-19 08:42 | XMS_ITS | Continuity of Care Document ---
Author Name Unknown Organization [facility] Address [address] [place] [address] Care Team Providers Care Sorter/Assay Tech Name Role Phone Jeannine Fernandes Primary Care Physician [phone] Noreen York Unavailable Unavailable Encounter [id number] Date(s): 06/10/22 - 06/10/22 [facility] [address] [place] [address] Discharge Disposition: Home or Self Care Attending Physician: Contreras Slaas MD Admitting Physician: Contreras Salas MD Allergies, [...] * Urinalysis Notify Lab 05/07/22 Functional Status 06/10/22 Living Environment No Living Environmen t Information Available Lives In Apartment Lives With Alone Living Situation Home independently Home Equipment Shower chair, Walker 06/10/22 Family Member Travel History No recent t [...] Daily, # 30 tab, 5 Refill(s), Pharmacy: [facility], 161, cm, 05/12/2220:25:00 EST, Height/Length Dosing, 77.5, kg, 05/12/22 20:25:00 EST, Weight Dosing Start Date: 05/15/22 Status: Ordered apixaban 5 mg oral tablet 5 mg = 1 tab, Oral, BID, # 60 tab, 2 Refill(s), [place] [facility], cm, 05/16/22 21:31:00 EST, Height/Length Dosing, 70, kg, 05/16/22 21:31:00 EST, Weight Dosing Start Date: 06/04/22 Status: Ordered aspirin 81 mg oral tablet, chewable 81 mg = 1 tab, Oral, Daily, # 90 tab, 1 Refill(s), Pharmacy: [facility], 161, cm, 05/12/22 20:25:00 EST, Height/Length Dosing, 77.5, kg, 05/12/22 20:25:00 EST, Weight Dosing Start Date: 05/15/22 Status: Ordered atorvastatin 40 mg oral tablet 40 mg = 1 tab, Oral, Daily, # 90 tab, 0 Refill(s), [place] [facility], cm, 05/16/22 21:31:00 EST, Height/Length Dosing, 70, kg, 05/16/22 21:31:00 EST, Weight Dosing Start Date: 06/04/22 Status: Ordered BD UF MINI PEN NEEDLE [id number] BD UF MINI PEN NEEDLE [id number], See Instructions, USE DIRECTED FOUR TIMES A DAY NEEDED, # 100 EA, 3 Refill(s), Pharmacy: [facility] Start Date: 02/24/22 Status: Ordered BD UF Pen Needle Mini [id number] BD UF Pen Needle Mini [id number], Use one needle for each injection daily. (current Injections are 4 times daily), Supply, See instructions, # 100 EA, 2 Refill(s), Pharmacy: [facility] Start Date: 01/16/22 Status: Ordered Eliquis [...] tab, 0 Refill(s), [place] [facility], cm, 06/09/22 9:44:00 EST, Height/Length Dosing, [...] hr, # 5 tab, 0 Refill(s), [place] [facility], cm, 06/10/22 8:59:00 EST, Height/Length Dosing, 74, kg, 06/10/22 8:59:00 EST, Weight Dosing Start Date: 06/10/22 Stop Date: 06/20/22 Status: Ordered loperamide 2 mg oral capsule 2 mg = 1 cap, Oral, every 4 hr, PRN as needed for loose stool, # 60 cap, 2 Refill(s), [facility], cm, 05/16/22 21:31:00 EST, Height/Length Dosing, 70, kg, 05/16/22 21:31:00 EST, Weight Dosing Start Date: 06/04/22 Status: Ordered magnesium oxide 400 mg (241.3 mg elemental magnesium) oral tablet 400 mg = 1 tab, Oral, BID, # 60 tab, 3 Refill(s), [place] [facility], cm, 05/16/22 21:31:00 EST, [...] DAY, # 90 tab, 3 Refill(s), Pharmacy: [facility] Start Date: 01/01/22 Status: Ordered mupirocin 2% topical ointment See Instructions, APPLY A SMALL AMOUNT TOPICALLY TO AFFECTED AREA(S) THREE TIMES A DAY, # 22 g, 1 Refill(s), Pharmacy: [facility] Start Date: 03/23/22 Status: Ordered nitroglycerin 0.4 mg sublingual tablet SL, every 5 min, not to exceed 3 doses/15 min--if pain persists, seek medical attention Start Date: 12/17/21 Status: Ordered NovoLOG FlexPen 100 units/mL injectable solution 5 units =, Subcutaneous, TID(AC), # 10 mL, 0 Refill(s), [place] [facility], cm, 05/16/22 21:31:00 EST, [...] 30 tab,0 Refill(s), [place] [facility], cm, 05/16/22 21:31:00 EST, [...] Results Laboratory List Name Date Urinalysis Microscopic 06/10/22 Urinalysis with Micro if Indicated and C ulture if Indicated 06/10/22 C-Reactive Protein High Sensitivity (CRP HS) 06/10/22 CBC w/o Diff (CBC) 06/10/22 Comprehensive Metabolic Panel (CMP) Most recent to oldest [Reference Range]: 1 WBC [5.0-10.0 x10^3/mcL] 5.8 x10^3/mcL (06/10/22 9:26 AM) RBC [4.1-5.3 x10^6/mcL] 3.1 x10^6/mcL *LOW* (06/10/22 9:26 AM) BUN [7-18 mg/dL] 53 mg/dL *HI* (06/10/22 9:26 AM) UA Color Yellow (06/10/22 9:48 AM) UA WBC [0-3] 25-50 *ABN* (06/10/22 9:48 AM) Glucose Level [74-106 mg/dL] 170 mg/dL *HI* (06/10/22 9:26 AM) Potassium Level [3.5-5.1 mmol/L] 4.1 mmo l/L (06/10/22 9:26 AM) MCV [80.0-96.0] 96.1 *HI* (06/10/22 9:26 AM) UA Urobilinogen Normal (06/10/22 9:48 AM) UA Hyal Cast Rare /HPF (06/10/22 9:48 AM) UA Bili [Negative] Negative (06/10/22 9:48 AM) UA Ketones Negative (06/10/22 9:48 AM) AST [15-37 unit/L] 13 unit/L *LOW* (06/10/22 9:26 AM) ALT [14-59 unit/L] 10 unit/L *LOW* (06/10/22 9:26 AM) MCHC [31.0-35.0 g/dL] 32.1 g/dL (06/10/22 9:26 AM) Sodium Level [136-145 mmol/L] 140 mmol/L (06/10/22 9:26 AM) UA RBC [0-2] 5-10 (06/10/22 9:48 AM) UA Leuk Est 1+ *ABN* (06/10/22 9:48 AM) UA Nitrite Positive *ABN* (06/10/22 9:48 AM) UA Glucose [Negative] Trace *ABN* (06/10/22 9:48 AM) Hct [37.0-47.0 %] 29.9 % *LOW* (06/10/22 9:26 AM) UA Bacteria Many /HPF *ABN* (06/10/22 9:48 AM) Calcium Level [8.5-10.1 mg/dL] 11.2 mg/d L *HI* (06/10/22 9:26 AM) Albumin Level [3.4-5.0 g/dL] 3.0 g/dL *LOW* (06/10/22 9:26 AM) Protein Total [6.4-8.2 g/dL] 6.5 g/dL (06/10/22 9:26 AM) UA Protein Trace *ABN* (06/10/22 9:48 AM) MCH [26.0-32.0 pg] 30.9 pg (06/10/22 9:26 AM) Bilirubin Total [0.2-1.0 mg/dL] 0.6 mg/d L (06/10/22 9:26 AM) Hgb [12.0-16.0 g/dL] 9.6 g/dL *LOW* (06/10/22 9:26 AM) Alk Phos [46-146 unit/L] 67 unit/L (06/10/22 9:26 AM) UA Blood Trace *ABN* (06/10/22 9:48 AM) UA Mucous Rare /HPF *ABN* (06/10/22 9:48 AM) UA Spec Grav 1.020 *NA* (06/10/22 9:48 AM) Platelets [130-450 x10^3/mcL] 139 x10^3/ mcL (06/10/22 9:26 AM) CO2 [21-32 mmol/L] 27 mmol/L (06/10/22 9:26 AM) UA Squam Epithelial [None Seen] Rare (06/10/22 9:48 AM) UA pH 6.0 *NA* (06/10/22 9:48 AM) eGFR Non-AA [>=60] 14 *LOW* (06/10/22 9:26 AM) eGFR AA [>=60] 14 *LOW* (06/10/22 9:26 AM) UA Appear Clear (06/10/22 9:48 AM) Chloride Level [98-107 mmol/L] 104 mmol/ L (06/10/22 9:26 AM) RDW-CV [11.7-17.0 %] 15.3 % (06/10/22 9:26 AM) CRP High Sens [0.00-3.00 mg/L] 3.02 mg/L *HI* (06/10/22 9:26 AM) UA Culture Ind?. Indicated (06/10/22 9:48 AM) Creatinine Level [0.55-1.02 mg/dL] 3.21 mg/dL *HI* (06/10/22 9:26 AM) Orders for Microbiology Reports Name Date Urine Culture 06/10/22 Microbiology Reports TEST:Urine Culture STATUS:Order in Progress BODY SITE: SOURCE:Urine COLLECTED DATE/TIME:06/10/22 9:48 AM PRELIMINARY REPORT >100,000 cfu/ml Escherichia coli Susceptibility to follow. Vital Signs Most recent to oldest [Reference Range]: 1 2 3 Temperature Temporal Artery [36-38 Deg C] 37 Deg C (06/10/22 12:30 PM) 37 Deg C (06/10/22 8:50 AM) Peripheral Pulse Rate [60-100 bpm] 61 bpm (06/10/22 12:30 PM) 62 bpm (06/10/22 9:38 AM) 60 bpm (06/10/22 8:50 AM) Respiratory Rate [12-24 br/min] 16 br/min (06/10/22 12:30 PM) 18 br/min (06/10/22 9:38 AM) 18 br/min (06/10/22 8:50 AM) Blood Pressure [90-140/60-90 mmHg] 131/61mmHg (06/10/22 12:30 PM) 142/68mmHg *HI* (06/10/22 9:38 AM) 156/60mmHg *HI* (06/10/22 8:50 AM) Weight Dosing 74.00 kg (06/10/22 8:59 AM) Weight Estimated 74.00 kg (06/10/22 8:50 AM) Height/Length Dosing 168.000 cm (06/10/22 8:59 AM) Height/Length Estimated 168.000 cm (06/10/22 8:50 AM) Social History Social History Type Response Tobacco Never tobacco user T obacco Use:. Sex Female Physician Emergency department Note * Contreras Salas MD: PERFORM Event Display: ED Note Physician Authored Date: [id number] MARIA INES BROOKS :1945 Age:77 years Sex:Female Visit Date:06/10/2022 Primary Care Physician: Jeannine Fernandes MD Basic Information Time Seen: Contreras Salas MD / 06/10/2022 09:05 Chief Complaint abd pain, center stomach, seen yesterday for fatigue and given blood transfusion, recent dx PE stopped thinners yesterday History Of Present Illness: Presenting concern is abdominal pain.?? Time of onset is 2:30 AM.?? Location of pain is lower abdomen.?? Intensity??at onset was 9/10. ??Current intensity is greater than 10/10.?? Quality is heavy pressure. ??Radiation is none. ??Precipitating factors are none.?? Aggravating factors are walking.?? Prior episodes are none. Review of Systems: Review of systems is negative for fever, chest pain,??diarrhea, constipation, urinary symptoms, abnormal bleeding, headache. ??Review of systems is positive for??shortness of breath, abdominal pain, nausea. Physical Exam Vitals & Measurements T:??37?C ??(Temporal Artery)?? HR:??62??(Peripheral)?? RR:??18?? BP:??142/68?? SpO2:??98%?? HT:??168.000??cm?? WT:??74.00??kg??(Estimated)?? Pain Score:??9?? Patient is uncomfortable. ??She converses normally. ??Establishes maintains eye contact.?? She has a pained expression on her face. ??Respirations are normal.?? Heart auscultation demonstrates a systolic ejection murmur??heard over the precordium. ??Abdomen is??obese and soft. ??There is general tenderness??patient identifies the maximal area of tenderness in the??central abdomen. ??Extremities are normal.?? Mental status is normal. Procedure No Qualifying Data Assessment/Plan Ordered: cefTRIAXone, 1 g = 1 EA, IV Piggyback, Soln-IV, every 24 hr, Antibiotic Indication Other (specify in order comments), Administer over: 0.5 hr, First Dose: 06/10/22 11:30:00 EST, STAT, 200 mL/hr levoFLOXacin, 250 mg = 1 tab, Oral, Tab, every 48 hr for 5 days, Antibiotic Indication Other (specify in order comments), First Dose: 06/10/22 12:20:00 EST, Stop Date: 06/15/22 12:19:00 EST, Physician Stop, STAT levoFLOXacin 250 mg oral tablet, 250 mg = 1 tab, Oral, every 48 hr, # 5 tab, 0 Refill(s), [place], cm, 06/10/22 8:59:00 EST, Height/Length Dosing, 74, kg, 06/10/22 8:59:00 EST, Weight Dosing Crossmatch, Blood, Stat, Collected, 06/09/22 12:30:48 EST, by NANI, Once, Nurse collect, 6 mL [place] 6 mL/*A*/ Discharge Patient, 06/10/22 12:24:00 EST, Home Independently, Constant Indicator Urine Culture, Urine, Stat collect, ST - Stat, 06/10/22 9:48:00 EST, Once, Nurse collect, Collected, 06/10/22 9:48:00 EST, Print Label, [id number] Diagnosis is emphysematous urinary tract infection. Medication Reconciliation New Prescription levoFLOXacin (levoFLOXacin 250 mg oral tablet)1 tab Oral (given by mouth) every 48 hours for 10 Days. Refills: 0. ?? Unchanged acetaminophen (acetaminophen 500 [...] for Prescription (BD UF Pen Needle Mini [id number])Use one needle for each injection daily. (current [...] Other Prescription (BD UF MINI PEN NEEDLE [id number])USE DIRECTED FOUR TIMES A DAY NEEDED. Refills: [...] (06/07/1973)???Total abdominal hysterectomy (06/07/1971) Medication Administration Given cefTRIAXone, IV Piggyback fentaNYL, 50 mcg, IV Push ondansetron, 4 mg, IV Push Allergies azithromycin??(Skin rash) [...] and Differential?? LATEST RESULTS?? HISTORICAL RESULTS?? WBC?? 06/10/22 09:26?? 5.8?? 06/09/22?? 5.6?? RBC?? 06/10/22 09:26?? 3.1 ??Low?? 06/09/22?? 2.7 ??Low?? Hgb?? 06/10/22 09:26?? 9.6 ??Low?? 06/09/22?? 8.6 ??Low?? Hct?? 06/10/22 09:26?? 29.9 ??Low?? 06/09/22?? 26.9 ??Low?? MCV?? 06/10/22 09:26?? 96.1 ??High?? 06/09/22?? 98.5 ??High?? MCH?? 06/10/22 09:26?? 30.9?? 06/09/22?? 31.5?? MCHC?? 06/10/22 09:26?? 32.1?? 06/09/22?? 32.0?? RDW-CV?? 06/10/22 09:26?? 15.3?? 06/09/22?? 14.4?? Platelets?? 06/10/22 09:26?? 139?? 06/09/22?? 145? Routine Chemistry?? LATEST RESULTS?? HISTORICAL RESULTS?? Sodium Level?? 06/10/22 09:26?? 140?? 06/09/22?? 141?? Potassium Level?? 06/10/22 09:26?? 4.1?? 06/09/22?? 4.5?? Chloride Level?? 06/10/22 09:26?? 104?? 06/09/22?? 104?? CO2?? 06/10/22 09:26?? 27?? 06/09/22?? 26?? Alk Phos?? 06/10/22 09:26?? 67?? 06/09/22?? 69?? AST?? 06/10/22 09:26?? 13 ??Low?? 06/09/22?? 15?? ALT?? 06/10/22 09:26?? 10 ??Low?? 06/09/22?? 9 ??Low?? BUN?? 06/10/22 09:26?? 53 ??High?? 06/09/22?? 56 ??High?? Glucose Level?? 06/10/22 09:26?? 170 ??High?? 06/09/22?? 149 ??High?? Creatinine Level?? 06/10/22 09:26?? 3.21 ??High?? 06/09/22?? 3.02 ??High?? eGFR AA?? 06/10/22 09:26?? 14 ??Low?? 06/09/22?? 15 ??Low?? eGFR Non-AA?? 06/10/22 09:26?? 14 ??Low?? 06/09/22?? 15 ??Low?? Calcium Level?? 06/10/22 09:26?? 11.2 ??High?? 06/09/22?? 11.9 ??High?? Protein Total?? 06/10/22 09:26?? 6.5?? 06/09/22?? 6.9?? Albumin Level?? 06/10/22 09:26?? 3.0 ??Low?? 06/09/22?? 3.2 ??Low?? Bilirubin Total?? 06/10/22 09:26?? 0.6?? 06/09/22?? 0.4?? CRP High Sens?? 06/10/22 09:26?? 3.02 ??High? UA Macroscopic?? LATEST RESULTS?? HISTORICAL RESULTS?? UA Color?? 06/10/22 09:48?? Yellow?? 05/09/22?? Yellow?? UA Appear?? 06/10/22 09:48?? Clear?? 05/09/22?? Clear?? UA Glucose?? 06/10/22 09:48?? Trace Abnormal?? 05/09/22?? Negative?? UA Bili?? 06/10/22 09:48?? Negative?? 05/09/22?? Negative?? UA Ketones?? 06/10/22 09:48?? Negative?? 05/09/22?? Negative?? UA Spec Grav?? 06/10/22 09:48?? 1.020?? 05/09/22?? 1.025?? UA Blood?? 06/10/22 09:48?? Trace Abnormal?? 05/09/22?? Trace Abnormal?? UA pH?? 06/10/22 09:48?? 6.0?? 05/09/22?? 6.0?? UA Protein?? 06/10/22 09:48?? Trace Abnormal?? 05/09/22?? 2+ Abnormal?? UA Urobilinogen?? 06/10/22 09:48?? Normal?? 05/09/22?? Normal?? UA Nitrite?? 06/10/22 09:48?? Positive Abnormal?? 05/09/22?? Negative?? UA Leuk Est?? 06/10/22 09:48?? 1+ Abnormal?? 05/09/22?? Negative?? UA Culture Ind?.?? 06/10/22 09:48?? Indicated?? 05/09/22?? Not Applicable? UA Microscopic?? LATEST RESULTS?? HISTORICAL RESULTS?? UA WBC?? 06/10/22 09:48?? 25-50 Abnormal?? 05/09/22?? 5-10 Abnormal?? UA RBC?? 06/10/22 09:48?? 5-10?? 05/09/22?? 3-5?? UA Squam Epithelial?? 06/10/22 09:48?? Rare?? 05/09/22?? Moderate Abnormal?? UA Mucous?? 06/10/22 09:48?? Rare Abnormal?? 05/09/22?? None Seen?? UA Bacteria?? 06/10/22 09:48?? Many Abnormal?? 05/09/22?? Rare?? UA Hyal Cast?? 06/10/22 09:48?? Rare? Electronically Signed on 06/10/22 12:25 PM Contreras Salas MD Emergency department Discharge instructions * Contreras Salas MD: PERFORM Event Display: ED Discharge Information Authored Date: [id number] MARIA INES BROOKS :1945 Age:77 years Sex:Female Visit Date:06/10/2022 Primary Care Physician: Jeannine Fernandes MD Discharge Instructions We would like to thank you for allowing us to assist you with your healthcare needs. The following includes patient education materials and information regarding your injury/illness. Discharge Vitals Temperature??(Temporal Artery) 98.6 ??F (37 ??C) Heart Rate??(Peripheral) 62 Respiratory Rate?? 18 Blood Pressure?? 142/68?? Height?? 66.14 in (168.000 cm) Weight??(Estimated) 163.17 lb (74.00 kg) Allergies azithromycin??(Skin rash) codeine??(Rapid heart beat) What to Do Next Instructions from Your Care Team Take a levofloxacin 250 mg??on??Wednesday,??Wednesday,??Wednesday, next .?? That is take 1 every other day??for a total of 4 pills with your next pill being due on Wednesday.?? We have given you a pill here in the emergency department. ?? Return to the emergency department as needed. ?? That should be gradual improvement. ?? Contreras Salas MD. Upcoming Scheduled Appointments 2022 11:20 AM EST ?? Wednesday 11:30 AM EST ?? Wednesday 11:00 [...] Much When Why Instructions Next Dose New levoFLOXacin (levoFLOXacin 250 mg oral tablet) 1 tab Oral (given by mouth) Every 48 hours Duration: 10 [place] [facility] [place]changed acetaminophen (acetaminophen 500 mg oral tablet) [...] for Prescription (BD UF Pen Needle Mini [id number]) See instructions DM2 (diabetes mellitus, type 2) [...] Other Prescription (BD UF MINI PEN NEEDLE [id number]) See instructions USE DIRECTED FOUR TIMES A [...] (given by mouth) Every day [place] Information [facility] [address] [place], [place] [id number] [phone] Tests Performed Medications and Immunizations Administered Given cefTRIAXone, IV Piggyback fentaNYL, 50 mcg, IV Push ondansetron, 4 mg, IV Push Lab Test Name Test Result Date/Time WBC 5.8 x10^3/mcL 06/10/2022 09:26 EST RBC 3.1 x10^6/mcL 06/10/2022 09:26 EST Hgb 9.6 g/dL 06/10/2022 09:26 EST Hct 29.9 % 06/10/2022 09:26 EST MCV 96.1 06/10/2022 09:26 EST MCH 30.9 pg 06/10/2022 09:26 EST MCHC 32.1 g/dL 06/10/2022 09:26 EST RDW-CV 15.3 % 06/10/2022 09:26 EST Platelets 139 x10^3/mcL 06/10/2022 09:26 EST Sodium Level 140 mmol/L 06/10/2022 09:26 EST Potassium Level 4.1 mmol/L 06/10/2022 09:26 EST Chloride Level 104 mmol/L 06/10/2022 09:26 EST CO2 27 mmol/L 06/10/2022 09:26 EST Alk Phos 67 unit/L 06/10/2022 09:26 EST AST 13 unit/L 06/10/2022 09:26 EST ALT 10 unit/L 06/10/2022 09:26 EST BUN 53 mg/dL 06/10/2022 09:26 EST Glucose Level 170 mg/dL 06/10/2022 09:26 EST Creatinine Level 3.21 mg/dL 06/10/2022 09:26 EST eGFR AA 14 06/10/2022 09:26 EST eGFR Non-AA 14 06/10/2022 09:26 EST Calcium Level 11.2 mg/dL 06/10/2022 09:26 EST Protein Total 6.5 g/dL 06/10/2022 09:26 EST Albumin Level 3.0 g/dL 06/10/2022 09:26 EST Bilirubin Total 0.6 mg/dL 06/10/2022 09:26 EST CRP High Sens 3.02 mg/L 06/10/2022 09:26 EST UA Color YELLOW. 06/10/2022 09:48 EST UA Appear CLEAR. 06/10/2022 09:48 EST UA Glucose TRACE. 06/10/2022 09:48 EST UA Bili NEGATIVE 06/10/2022 09:48 EST UA Ketones NEGATIVE 06/10/2022 09:48 EST UA Spec Grav 1.020 06/10/2022 09:48 EST UA Blood TRACE. 06/10/2022 09:48 EST UA pH 6.0 06/10/2022 09:48 EST UA Protein TRACE. 06/10/2022 09:48 EST UA Urobilinogen 0.2 Uro 06/10/2022 09:48 EST UA Nitrite POSITIVE 06/10/2022 09:48 EST UA Leuk Est 1+ 06/10/2022 09:48 EST UA Culture Ind?. Indicated 06/10/2022 09:48 EST UA WBC 25-50 06/10/2022 09:48 EST UA RBC 5-10 06/10/2022 09:48 EST UA Squam Epithelial Rare 06/10/2022 09:48 EST UA Mucous Rare 06/10/2022 09:48 EST UA Bacteria Many 06/10/2022 09:48 EST UA Hyal Cast Rare 06/10/2022 09:48 EST Patient/Cardiac Catheterization Technician Signature Patient Name:MARIA INES BROOKS I have received this information and my questions have been answered. Patient/Cardiac Catheterization Technician Name: Patient/Cardiac Catheterization Technician Signature: Relationship to Patient: Witness Name/Signature: Date: Electronically Signed on: 06/10/2022 12:25 ESTSigned by:[facility] Emergency department Note * Clarice Rondon M: PERFORM Event Display: ED Notes Authored Date: [id number] Patient Care team information Personnel Name: Jeannine Fernandes MD Address: Address: [place] [address]- [place] Name: Noreen York
--- OUTSIDE RECORDS SUMMARY | 2022-12-19 08:42 | XMS_ITS | Continuity of Care Document ---
Author Name Unknown Organization [facility] Address [address] [place] [address] Care Team Providers Care Whale Trainer Name Role Phone Jeannine Fernandes Primary Care Physician Noreen York Unavailable Unavailable Encounter [facility] Date(s): 11/05/22 - 11/05/22 [facility] [address] [place] [address] Discharge Disposition: Home or Self Care Attending Physician: Jeannine Fernandes MD Admitting Physician: Jeannine Fernandes MD Referring Physician: Jeannine Fernandes MD Allergies, Adverse Reactions, Alerts Substance Reaction Severity Status codeine Rapid heart beat Unknown Active azithromycin Skin rash Unknown Active Assessment and Plan Future Appointments Diagnostic Tests Pending * Protein Electrophoresis, S (SPEP) [facility] 11/05/22 * PTH-Related Peptide, P PEREZ 11/05/22 Future Scheduled Tests Laboratory* Magnesium Level 05/22/22 Immunizations Given and Recorded Vaccine Date Status Refusal Reason influenza virus vaccine, inactivated 04/09/22 Give n influenza virus vaccine, inactivated 04/21/13 Amaury rded influenza virus vaccine, inactivated 03/21/12 Amaury rded influenza virus vaccine, inactivated 02/27/11 Amaury rded influenza virus vaccine, inactivated 03/19/10 Amaruy rded influenza virus vaccine, inactivated 05/28/09 Amaury [...] Daily, # 90 tab, 3 Refill(s), Pharmacy: [facility], 168, cm, 09/23/22 17:19:00 EDT, Height/Length Dosing, [...] Daily, # 84 tab, 0 Refill(s), Pharmacy: [place] [address], 160, cm, 06/14/22 22:46:00 EST, Height/Length Dosing, 83, kg, 06/14/22 22:46:00 EST, Weight Dosing Start Date: 08/24/22 Status: Ordered BD Pen Needle Mini U/F 31G X 5 MM MISC BD Pen Needle Mini U/F 31G X 5 MM MISC, See Instructions, USE FOUR TIMES A DAY DIRECTED, # 100 EA, 2 Refill(s), Pharmacy: [facility] [id number], 160, cm, 06/14/22 22:46:00 EST, Height/Length Dosing, 83, kg, 06/14/22 22:46:00 EST, Weight Dosing Start Date: 07/26/22 Status: Ordered BD UF MINI PEN NEEDLE [id number] BD UF MINI PEN NEEDLE [id number], See Instructions, USE DIRECTED FOUR TIMES A DAY NEEDED, # 100 EA, 3 Refill(s), Pharmacy: [facility] Start Date: 02/24/22 Status: Ordered BD UF Pen Needle Mini [id number] BD UF Pen Needle Mini [id number], Use one needle for each injection daily. (current Injections are 4 times daily), Supply, See instructions, # 100 EA, 2 Refill(s), Pharmacy: [facility] Start Date: 01/16/22 Status: Ordered Colace 100 mg oral capsule 100 mg = 1 cap, Oral, Daily, PRN as needed for constipation, # 90 cap, 0 Refill(s), Pharmacy: [facility], 168, cm, 09/23/22 17:19:00 EDT, Height/Length [...] instructions, # 60 EA, 3 Refill(s), Pharmacy: [facility] Start Date: 07/13/22 Status: Ordered Levemir FlexTouch 100 units/mL subcutaneous solution 15 units =, Subcutaneous, every night at bedtime Start Date: 05/13/22 Status: Ordered magnesium oxide 400 mg (241.3 mg elemental magnesium) oral tablet 1 tab, Oral, BID, # 56 tab, 3 Refill(s), Pharmacy: [facility] [facility] [address], 168, cm, 09/01/22 14:46:00 EDT, Height/Length Dosing, 66.2, kg, 09/01/22 14:46:00 EDT, Weight Dosing Start Date: 09/22/22 Status: Ordered Melatonin 3 mg oral tablet 1 tab, Oral, every night at bedtime, # 28 tab, 3 Refill(s), Pharmacy: [facility] [address], 168, cm, 09/01/22 14:46:00 EDT, Height/Length Dosing, 66.2, kg, 09/01/22 14:46:00 EDT, Weight Dosing Start Date: 09/22/22 Status: Ordered memantine 5 mg oral tablet 5 mg = 1 tab, Oral, BID, # 60 tab, 5 Refill(s), Pharmacy: [facility], 168, cm, 09/23/22 17:19:00 EDT, Height/Length Dosing, 64.1, kg, 09/23/22 17:19:00 EDT, Weight Dosing Start Date: 10/23/22 Status: Ordered Metoprolol Succinate ER 25 mg oral tablet, extended release 25 mg = 1 tab, Oral, Daily, TAKE ONE TABLET BY MOUTH EVERY DAY, # 90 tab, 3 Refill(s), Pharmacy: [facility] Start Date: 01/01/22 Status: Ordered MiraLax oral powder for reconstitution 17 g, Oral, Daily, PRN constipation, # 12 EA, 5 Refill(s), Pharmacy: [facility], 168,cm, 09/23/22 17:19:00 EDT, Height/Length Dosing, 64.1, kg, 09/23/22 17:19:00 EDT, Weight Dosing Start Date: 10/23/22 Status: Ordered mupirocin 2% topical ointment See Instructions, APPLY A SMALL AMOUNT TOPICALLY TO AFFECTED AREA(S) THREE TIMES A DAY, # 22 g, 1 Refill(s), Pharmacy: [facility] Start Date: 03/23/22 Status: Ordered nitroglycerin [...] TID(AC), # 10 mL, 0 Refill(s), Pharmacy: [facility], 168, cm, 05/16/22 21:31:00 EST, Height/Length Dosing, [...] tab, 5 Refill(s), Pharmacy: [facility], 168, cm, 09/23/22 17:19:00 EDT, Height/Length Dosing, [...] DAILY, # 84 tab, 2 Refill(s), Pharmacy: [facility] [address], 168, cm, 09/01/22 14:46:00 EDT, Height/Length Dosing, [...] 10-13-2021 visit: At baseline, needs med refilled. From 03-28-2021 visit: e coli green sensitive on [...] Results Laboratory List Name Date Automated Diff 11/05/22 CBC w/ Diff 11/05/22 Calcium Level Ionized 11/05/22 Comprehensive Metabolic Panel (CMP) Most recent to oldest [Reference Range]: 1 WBC [5.0-10.0 x10^3/mcL] 8.0 x10^3/mcL (11/05/22 10:27 AM) RBC [4.1-5.3 x10^6/mcL] 3.9 x10^6/mcL *LOW* (11/05/22 10:27 AM) Neutro Auto [40.0-75.0 %] 63.5 % (11/05/22 10:27 AM) Lymph Auto [20.0-50.0 %] 21.9 % (11/05/22 10:27 AM) [place] Auto [2.0-15.0 %] 8.3 % (11/05/22 10:27 AM) Basophil Auto [0.0-1.0 %] 1.1 % *HI* (11/05/22 10:27 AM) BUN [7-18 mg/dL] 38 mg/dL *HI* (11/05/22 10:27 AM) Glucose Level [74-106 mg/dL] 318 mg/dL *HI* (11/05/22 10:27 AM) Potassium Level [3.5-5.1 mmol/L] 3.6 mmo l/L (11/05/22 10:27 AM) MCV [80.0-96.0 fL] 95.4 fL (11/05/22 10:27 AM) AST [15-37 unit/L] 15 unit/L (11/05/22 10:27 AM) ALT [14-59 unit/L] 12 unit/L *LOW* (11/05/22 10:27 AM) MCHC [31.0-35.0 g/dL] 32.4 g/dL (11/05/22 10:27 AM) Sodium Level [136-145 mmol/L] 138 mmol/L (11/05/22 10:27 AM) Hct [37.0-47.0 %] 37.0 % (11/05/22 10:27 AM) Calcium Level [8.5-10.1 mg/dL] 13.0 mg/d L 1 *CRIT* (11/05/22 10: AM) Albumin Level [3.4-5.0 g/dL] 3.2 g/dL *LOW* (11/05/22 10: AM) Protein Total [6.4-8.2 g/dL] 7.9 g/dL (11/05/22 10:27 AM) MCH [26.0-32.0 pg] 30.9 pg (11/05/22 10:27 AM) Neutro Absolute 5.1 x10^3/mcL *NA* (11/05/22 10:27 AM) Bilirubin Total [0.2-1.0 mg/dL] 0.5 mg/d L (11/05/22 10:27 AM) Hgb [12.0-16.0 g/dL] 12.0 g/dL (11/05/22 10:27 AM) Alk Phos [46-146 unit/L] 107 unit/L (11/05/22 10:27 AM) Platelets [130-450 x10^3/mcL] 178 x10^3/ mcL (11/05/22 10:27 AM) CO2 [21-32 mmol/L] 28 mmol/L (11/05/22 10:27 AM) Calcium Level Ionized [1.12-1.32 mmol/L] 1.65 mmol/L *HI* (11/05/22 10:27 AM) eGFR Non-AA [>=60] 14 *LOW* (11/05/22 10:27 AM) eGFR AA [>=60] 14 *LOW* (11/05/22 10:27 AM) Chloride Level [98-107 mmol/L] 97 mmol/L *LOW* (11/05/22 10:27 AM) RDW-CV [11.5-14.5 %] 14.7 % *HI* (11/05/22 10:27 AM) Imm Gran Auto [0.0-0.9 %] 0.3 % (11/05/22 10:27 AM) Creatinine Level [0.55-1.02 mg/dL] 3.28 mg/dL *HI* (11/05/22 10:27 AM) Eos, Auto [1.0-6.0 %] 4.9 % (11/05/22 10:27 AM) 1Result Comment: Called to and verbally verified by Berenice May RN at 11/05/2022 11:25:41 EDT. Social History Social History Type Response Tobacco Never tobacco user T obacco Use:. Sex Female Patient Care team information Care Team Personnel Name: Jeannine Fernandes MD Position: Physician Member Role: Informed Provider Address: Address: [address] Name: Nithin Bellamy MEDICAL ASSISTANT SECRETARY Position: Physician Member Role: Nurse Practitioner Address: Address: [address] Name: Noreen York Position: Ambulatory - RN/TELECOMMUNICATIONS SWITCH TECHNICIAN (Sanjay) Member Role: Dog Obedience Instructor Name: Grupo Walters MEDICAL ASSISTANT SECRETARY Position: Physician Member Role: Nurse Practitioner Care Team Related Persons Name: ROMAN EARL Address: [place] [address] Address: Home [address] [place] [phone] Name: ROMAN EARL Address: [place] [address] Address: [address] [phone]
--- OUTSIDE RECORDS SUMMARY | 2022-12-19 08:42 | XMS_ITS | Continuity of Care Document ---
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 Discharge Disposition: Home or Self Care Attending Physician: Kamran Roldan MD Referring Physician: Sandra Melo MD Allergies, Adverse Reactions, Alerts Substance Reaction Severity Status codeine Rapid heart beat Unknown Active azithromycin Skin rash Unknown Active Assessment and Plan Future Appointments Future Scheduled Tests Laboratory* Comprehensive Metabolic Panel 07/02/22 * Magnesium Level 05/22/22 * Calcium Level Ionized 07/02/22 Functional Status 09/17/22 Other exposure to Infectious Disease Non e [...] Daily, # 30 tab, 5 Refill(s), Pharmacy: [facility], 161, cm, 05/12/2220:25:00 EST, Height/Length Dosing, 77.5, kg, 05/12/22 20:25:00 EST, Weight Dosing Start Date: 05/15/22 Status: Ordered aspirin 81 mg oral tablet, chewable 81 mg = 1 tab, Oral, Daily, # 90 tab, 0 Refill(s), [place] [facility] [place], cm, 06/14/22 22:46:00 EST, Height/Length Dosing, 83, kg, 06/14/22 22:46:00 EST, Weight Dosing Start Date: 08/28/22 Status: Ordered atorvastatin 40 mg oral tablet 1 tab, Oral, Daily, # 84 tab, 0 Refill(s), Pharmacy: [facility] [place] [id number], 160, cm, 06/14/22 22:46:00 EST, Height/Length Dosing, 83, kg, 06/14/22 22:46:00 EST, Weight Dosing Start Date: 08/24/22 Status: Ordered BD Pen Needle Mini U/F 31G X 5 MM MISC BD Pen Needle Mini U/F 31G X 5 MM MISC, See Instructions, USE FOUR TIMES A DAY DIRECTED, # 100 EA, 2 Refill(s), Pharmacy: [facility] [place] [id number], 160, cm, 06/14/22 22:46:00 EST, Height/Length Dosing, 83, kg, 06/14/22 22:46:00 EST, Weight Dosing Start Date: 07/26/22 Status: Ordered BD UF MINI PEN NEEDLE [id number] BD UF MINI PEN NEEDLE [id number], See Instructions, USE DIRECTED FOUR TIMES A DAY NEEDED, # 100 EA, 3 Refill(s), Pharmacy: [facility] Start Date: 02/24/22 Status: Ordered BD UF Pen Needle Mini [id number] BD UF Pen Needle Mini [id number], Use one needle for each injection daily. (current Injections are 4 times daily), Supply, See instructions, # 100 EA, 2 Refill(s), Pharmacy: [facility] Start Date: 01/16/22 Status: Ordered doxycycline monohydrate 100 mg oral capsule 100 mg = 1 cap, Oral, every 12 hr, # 6 cap, 0 Refill(s), [place] [facility] [place], [place], 09/01/22 14:46:00 EDT, Height/Length Dosing, 66.2, kg, 09/01/22 14:46:00 EDT, Weight Dosing Start Date: 09/03/22 Stop Date: 09/06/22 Status: Ordered ferrous gluconate 324 mg (38 mg elemental iron) oral tablet 324 mg = 1 tab, Oral, Daily, # 90 tab, 0 Refill(s), [place] [facility] [place], [place], 08/31/22 11:50:00 EDT, [...] [place] [facility] [place], cm, 08/31/22 11:50:00 EDT, Height/Length Dosing, 36.2, kg, 08/31/22 11:50:00 EDT, Weight Dosing Start Date: 09/01/22 Status: Ordered Glucerna Glucerna, Twice a day, Supply, See instructions, # 60 EA, 3 Refill(s), Pharmacy: [facility] Start Date: 07/13/22 Status: Ordered Levemir [...] bedtime, # 30 tab, 0 Refill(s), [place] [facility] [place], cm, 06/14/22 22:46:00 EST, [...] DAY, # 90 tab, 3 Refill(s), Pharmacy: [facility] Start Date: 01/01/22 Status: Ordered mupirocin 2% topical ointment See Instructions, APPLY A SMALL AMOUNT TOPICALLY TO AFFECTED AREA(S) THREE TIMES A DAY, # 22 g, 1 Refill(s), Pharmacy: [facility] Start Date: 03/23/22 Status: Ordered nitroglycerin 0.4 mg sublingual tablet 0.4 mg = 1 tab, SL, every 5 min, not to exceed 3 doses/15 min--if pain persists, seek medical attention, # 30 tab, 0 Refill(s), [place] [facility] [place], cm, 06/14/22 22:46:00 EST, [...] 12 Refill(s), [place] [facility] [place] Date: 07/27/22 Status: Ordered oxybutynin 5 mg oral tablet 5 mg = 1 tab, Oral, BID, PRN as needed for urinary discomfort, 2-3 TIMES DAILY NEEDED, # 30 tab,0 Refill(s), Pharmacy: [facility], 168, cm, 05/16/22 21:31:00 EST, Height/Length Dosing, 70, kg, 05/16/22 21:31:00 EST, Weight Dosing Start Date: 06/04/22 Status: Ordered pantoprazole 40 mg oral delayed release tablet 40 mg = 1 tab, Oral, Daily Start Date: 05/13/22 Status: Ordered propranolol 20 mg oral tablet 3 tab, Oral, BID, # 168 tab, 0 Refill(s), Pharmacy: [facility] [place] [id number], 160, cm, 06/14/22 22:46:00 EST, Height/Length Dosing, 83, kg, 06/14/22 22:46:00 EST, Weight Dosing Start Date: 08/24/22 Status: Ordered venlafaxine 150 mg oral capsule, extended release 150 mg = 1 cap, Oral, Daily, # 90 cap, 3 Refill(s), Pharmacy: [facility], 160, cm, 08/31/22 11:50:00 EDT, Height/Length Dosing, 36.2, kg, 08/31/22 11:50:00 EDT, Weight Dosing Start Date: 09/01/22 Status: Ordered Vitamin B2 100 mg oral tablet See Instructions, TAKE 1 TABLET BY MOUTH DAILY, # 84 tab, 2 Refill(s), Pharmacy: [facility], cm, 09/01/22 14:46:00 EDT, Height/Length Dosing, [...] Most recent to oldest [Reference Range]: 1 Peripheral Pulse Rate [60-100 bpm] 73 bp m (09/17/22 11:24 AM) Blood Pressure [90-140/60-90 mmHg] 122/7 2mmHg (09/17/22 11:24 AM) Weight 65.0 kg (09/17/22 11:24 AM) Weight Measured (lbs) 143.3 lb (09/17/22 11:24 AM) Social History Social History Type Response Tobacco Never tobacco user T obacco Use:. Sex Female Cardiology Outpatient Note * Kamran Roldan MD: PERFORM Event Display: Cardiology Office Clinic Note Authored Date: [id number] MARIA INES BROOKS :1945 Age:77 years Sex:Female Visit Date:09/17/2022 Primary Care Physician: Jeannine Fernandes MD History of Present Illness Cardiac problems: 1.?? Left atrial??mass??on echocardiogram 08/2022 2. ??Anxiety 3. ??Chest pain 4. ??Murmur 5. ??Moderate aortic stenosis with mean gradient of 19 mmHg, August 2022 6. ??Depression 7. ??History of??GI bleed 8.?? GERD 9. ??Hyperlipidemia 10.?? Hypertension 11.?? Obesity 12. ??Diabetes mellitus type 2 13.?Renal mass ?? This is a 77-year-old woman is new to the practice.?? She actually was referred back in January of last year for a murmur, but cardiology coverage was not reliable here at [facility] at that time.?? She subsequently underwent an echocardiogram??a few weeks ago which showed a left atrial mass; this was confirmed with [facility]. ??It is consistent in appearance with??myxoma. ??She is here to discuss that finding. ?? She is largely asymptomatic. ??There is no chest pain, orthopnea, PND. ??She often feels her heart racing, and when she does so she takes nitroglycerin, which she was just given during her admission for DKA (?).?? She is been falling frequently for many years but does walk around with a walker. ??She reports occasional lower extremity edema. ?? Every couple of weeks the heart races and she takes nitro.?? Similarly, every couple of weeks or??maybe more often,??she is falling. ??It does not sound that the falls have anything to do with the palpitations, however. ?? She does some walking around her house with a walker, but it sounds that this is not really exercise as much as it is struggling to get across the house; it takes 5 to 10 minutes to get from one side of the house to the other.?? Otherwise she is not really exercising much at all. ??She does somechair exercises. Review of Systems A complete review of systems is negative other than as noted in the history of present illness. Physical Exam Vitals & Measurements HR:??73??(Peripheral)?? BP:??122/72?? SpO2:??96%?? WT:??65.0??kg?? 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 HLD (hyperlipidemia)??E78.5 Ordered: Follow-Up Appointment Request [facility], *Est. 01/19/23 +/- 21 days, Future Order, To follow-up [facility], In [facility], [facility] ?? Orders: EVENT MONITORING PHYSICIAN, 09/17/22, Other, Please Specify, Order for future visit, Palpitations Data reviewed: 09/02/2022: Echocardiogram: Ejection fraction 65 to 70% with normal wall motion.?? There is severe left atrial enlargement. ??There is moderate aortic stenosis with mean gradient of 19, there is mild to moderate mitral regurgitation and mild to moderate tricuspid regurgitation with normal pulmonary artery pressure of 33 mmHg.?? There is a large pleural effusion.?? There is a left atrial mass of 2.6 x 2.2 cm, consistent with myxoma. ??LYNNE was recommended. 09/17/2022??EKG:??Sinus rhythm at 67 bpm. ??Axes intervals within normal limits. ??There is LVH by multiple criteria.?? No obvious ischemia or prior infarct.?? This probable left atrial enlargement??with interatrial block. ?? 77-year-old woman with a new left atrial mass. ?? Left atrial mass:??LYNNE or cardiac MR would be the most appropriate next step.?? In this case, givenher frailty, and the likelihood that she will eventually need MRI anyway,??starting with the MRI. ??We will arrange for that at [facility]. ??She also may need cardiac catheterization. ??I will defer to this to the folks at [facility]. ??At some point she will need evaluation by the cardiothoracic enrique mckenna team,??we will send a general consult??in that context. ?? Aortic stenosis: This is moderate, and will need to be followed over time. ??She likely has somewhat between 5 and 10 years before we would need to talk about surgery which we discussed in general terms. ?? Chest discomfort, palpitations:??She has never had a stress test. ??She has never had an event monitor. ??I am placing a 14-day event monitor for her. ?? I was about to order stress test,??but she is likely to end up with cardiac catheterization, which would in turn make a stress test unnecessary.?? If it turns out that she does not need catheterization??(for example, if we demonstrate with MRI that this is unlikely to be myxoma and she does not need surgery),??then we would pursue a stress test when she comes back. ?? I will plan to see her back here in about 4 months, leaving time for the work-up and perhaps treatment at [facility]. ??She can call sooner if there are concerns in the interim. ?? She is accompanied today by??her home health aide, Mary. ?? Thank you for the courtesy of the consultation. ??It was a pleasure to meet Maria Ines. Problem List/Past Medical History Ongoing Anemia Anxiety [...] (06/07/1979)???Oophorectomy-right (06/1979)???Cholecystectomy (06/07/1973)???Total abdominal hysterectomy (06/07/1971) Medications amLODIPine 5 mg oral tablet, 5 mg= 1 tab, Oral, Daily, 5 refills aspirin 81 mg oral tablet, chewable, 81 mg= 1 tab, Oral, Daily atorvastatin 40 mg oral tablet, 1 tab, Oral, Daily BD Pen Needle Mini U/F 31G X 5 MM MISC, See Instructions BD UF MINI PEN NEEDLE [id number], See Instructions BD UF Pen Needle Mini [id number], See instructions, 2 refills doxycycline monohydrate 100 [...] refills Vitamin B2 100 mg oral tablet, See Instructions Vitamin C TR 500 mg oral capsule, [...] BROTHER, at age: Unknown. Cause of : Electronically Signed on 09/17/22 12:06 PM Kamran Roldan MD Patient Care team information Care Team Personnel Name: Jeannine Fernandes MD Position: Physician Member Role: Informed Provider Address: Address: [address] Name: Nithin Bellamy ASSET AVAILABILITY LEADER Position: Physician Member Role: Nurse Practitioner Address: Address: [address] Name: Noreen York Position: Ambulatory - RN/MANAGER MARKETING COMMUNICATION ([facility]) Member Role: Battery Stacker Name: Grupo Walters ASSET AVAILABILITY LEADER Position: Physician Member Role: Nurse Practitioner Care Team Related Persons Name: ROMAN EARL Address: [address] [phone] Name: ROMAN EARL Address: [place] [id number] Address: [address] [phone]
--- OUTSIDE RECORDS SUMMARY | 2022-12-19 08:42 | XMS_ITS | Continuity of Care Document ---
Author Name Unknown Organization [facility] Address [address] [place] [address] Care Team Providers Care Cognos Consultant Name Role Phone Jeannine Fernandes Primary Care Physician Noreen York Unavailable Unavailable Encounter [id number] Date(s): 06/12/22 - 06/13/22 [facility] [address] [place] [address] Discharge Disposition: Home or Self Care Attending [...] * Urinalysis Notify Lab 05/07/22 Functional Status 06/12/22 Family Member Travel History No recent t [...] Daily, # 30 tab, 5 Refill(s), Pharmacy: [facility], 161, cm, 05/12/2220:25:00 EST, Height/Length Dosing, 77.5, kg, 05/12/22 20:25:00 EST, Weight Dosing Start Date: 05/15/22 Status: Ordered atorvastatin 40 mg oral tablet 40 mg = 1 tab, Oral, Daily, # 90 tab, 0 Refill(s), Pharmacy: [facility] [place], [place], 168, cm, 05/16/22 21:31:00 EST, Height/Length Dosing, 70, kg, 05/16/22 21:31:00 EST, Weight Dosing Start Date: 06/04/22 Status: Ordered BD UF MINI PEN NEEDLE [id number] BD UF MINI PEN NEEDLE [id number], See Instructions, USE DIRECTED FOUR TIMES A DAY NEEDED, # 100 EA, 3 Refill(s), Pharmacy: [facility] Start Date: 02/24/22 Status: Ordered BD UF Pen Needle Mini [id number] BD UF Pen Needle Mini [id number], Use one needle for each injection daily. (current Injections are 4 times daily), Supply, See instructions, # 100 EA, 2 Refill(s), Pharmacy: [facility] Start Date: 01/16/22 Status: Ordered ferrous gluconate 324 mg (38 mg elemental iron) oral tablet 324 mg = 1 tab, Oral, Daily Start Date: 12/17/21 Status: Ordered folic acid 1 mg oral tablet 1 mg = 1 tab, Oral, Daily, # 90 tab, 0 Refill(s), Pharmacy: [facility], 168, cm, 06/09/22 9:44:00 EST, Height/Length [...] hr, # 5 tab, 0 Refill(s), Pharmacy: [facility] [place], 168, cm, 06/10/22 8:59:00 EST, Height/Length Dosing, 74, kg, 06/10/22 8:59:00 EST, Weight Dosing Start Date: 06/10/22 Stop Date: 06/20/22 Status: Ordered loperamide 2 mg oral capsule 2 mg = 1 cap, Oral, every 4 hr, PRN as needed for loose stool, # 60 cap, 2 Refill(s), Pharmacy: [facility] [place], 168, cm, 05/16/22 21:31:00 EST, Height/Length Dosing, 70, kg, 05/16/22 21:31:00 EST, Weight Dosing Start Date: 06/04/22 Status: Ordered magnesium oxide 400 mg (241.3 mg elemental magnesium) oral tablet 400 mg = 1 tab, Oral, BID, # 60 tab, 3 Refill(s), Pharmacy: [facility] [place], [place], 168, cm, 05/16/22 21:31:00 EST, Height/Length Dosing, [...] DAY, # 90 tab, 3 Refill(s), Pharmacy: [facility] Start Date: 01/01/22 Status: Ordered mupirocin 2% topical ointment See Instructions, APPLY A SMALL AMOUNT TOPICALLY TO AFFECTED AREA(S) THREE TIMES A DAY, # 22 g, 1 Refill(s), Pharmacy: [facility] Start Date: 03/23/22 Status: Ordered nitroglycerin 0.4 mg sublingual tablet SL, every 5 min, not to exceed 3 doses/15 min--if pain persists, seek medical attention Start Date: 12/17/21 Status: Ordered NovoLOG FlexPen 100 units/mL injectable solution 5 units =, Subcutaneous, TID(AC), # 10 mL, 0 Refill(s), Pharmacy: [facility] [place], 168, cm, 05/16/22 21:31:00 EST, Height/Length Dosing, [...] 30 tab,0 Refill(s), Pharmacy: [facility] [place], [place], 168, cm, 05/16/22 21:31:00 EST, Height/Length Dosing, [...] Pylori, negative Results Laboratory List Name Date Troponin-I 06/13/22 Basic Metabolic Panel (BMP) 06/12/22 CBC w/ Diff 06/12/22 Troponin-I 06/12/22 Automated Diff 06/12/22 Most recent to oldest [Reference Range]: 1 2 WBC [5.0-10.0 x10^3/mcL] 4.9 x10^3/mcL *LOW* (06/12/22 11:43 PM) RBC [4.1-5.3 x10^6/mcL] 3.1 x10^6/mcL *LOW* (06/12/22 11:43 PM) Neutro Auto [40.0-75.0 %] 48.5 % (06/12/22 11:43 PM) Lymph Auto [20.0-50.0 %] 32.0 % (06/12/22 11:43 PM) Elbert Auto [2.0-15.0 %] 11.6 % (06/12/22 11:43 PM) Basophil Auto [0.0-1.0 %] 0.8 % (06/12/22 11:43 PM) BUN [7-18 mg/dL] 46 mg/dL *HI* (06/12/22 11:43 PM) Glucose Level [74-106 mg/dL] 143 mg/dL *HI* (06/12/22 11:43 PM) Potassium Level [3.5-5.1 mmol/L] 4.4 mmo l/L (06/12/22 11:43 PM) MCV [80.0-96.0] 97.1 *HI* (06/12/22 11:43 PM) MCHC [31.0-35.0 g/dL] 32.0 g/dL (06/12/22 11:43 PM) Troponin-I [0.0-51.4 pg/mL] 24.4 pg/mL (06/13/22 1:45 AM) 25.0 pg/mL (06/12/22 11:43 PM) Sodium Level [136-145 mmol/L] 140 mmol/L (06/12/22 11:43 PM) Hct [37.0-47.0 %] 30.0 % *LOW* (06/12/22 11:43 PM) Calcium Level [8.5-10.1 mg/dL] 11.8 mg/d L *HI* (06/12/22 11:43 PM) MCH [26.0-32.0 pg] 31.1 pg (06/12/22 11:43 PM) Neutro Absolute 2.4 x10^3/mcL *NA* (06/12/22 11:43 PM) Hgb [12.0-16.0 g/dL] 9.6 g/dL *LOW* (06/12/22 11:43 PM) Platelets [130-450 x10^3/mcL] 132 x10^3/ mcL (06/12/22 11:43 PM) CO2 [21-32 mmol/L] 29 mmol/L (06/12/22 11:43 PM) eGFR Non-AA [>=60] 16 *LOW* (06/12/22 11:43 PM) eGFR AA [>=60] 16 *LOW* (06/12/22 11:43 PM) Chloride Level [98-107 mmol/L] 102 mmol/ L (06/12/22 11:43 PM) RDW-CV [11.7-17.0 %] 15.2 % (06/12/22 11:43 PM) Imm Gran Auto [0.0-0.9 %] 0.4 % (06/12/22 11:43 PM) Creatinine Level [0.55-1.02 mg/dL] 2.91 mg/dL *HI* (06/12/22 11:43 PM) Eos, Auto [1.0-6.0 %] 6.7 % *HI* (06/12/22 11:43 PM) Vital Signs Most recent to oldest [Reference Range]: 1 2 3 Temperature Temporal Artery [36-38 Deg C] 36.5 Deg C (06/13/22 12:24 AM) Temperature Temporal Artery (DegF) [97.3-100 Deg F] 97.7 Deg F (06/13/22 12:24 AM) Peripheral Pulse Rate [60-100 bpm] 60 bpm (06/13/22 3:07 AM) 58 bpm *LOW* (06/13/22 2:58 AM) 63 bpm (06/13/22 2:45 AM) Heart Rate Monitored [60-100 bpm] 65 bpm (06/13/22 4:49 AM) 62 bpm (06/13/22 4:00 AM) 62 bpm (06/13/22 3:45 AM) Respiratory Rate [12-24 br/min] 17 br/min (06/13/22 4:00 AM) 19 br/min (06/13/22 3:45 AM) 15 br/min (06/13/22 3:30 AM) Blood Pressure [90-140/60-90 mmHg] 139/67mmHg (06/13/22 4:00 AM) 140/65mmHg (06/13/22 3:45 AM) 145/64mmHg *HI* (06/13/22 3:30 AM) Weight 77.00 kg (06/12/22 11:14 PM) Weight Dosing 77.00 kg (06/12/22 11:23 PM) Height 168.000 cm (06/12/22 11:14 PM) Height/Length Dosing 168.000 cm (06/12/22 11:23 PM) Body Mass Index 27.000 kg/m2 (06/12/22 11:14 PM) Social History Social History Type Response Tobacco Never tobacco user T obacco Use:. Sex Female Physician Emergency department Note * Chun Vega MD: PERFORM Event Display: ED Note Physician Authored Date: [id number] DANIELE BROOKSN Harmeet :1945 Age:77 years Sex:Female Visit Date:06/12/2022 Primary Care Physician: Jeannine Fernandes MD HPI 77 y/o female with a history of CKD, depression, HTN, PTSD, DM, and chest pain presents for evaluation of recurrent chest pain that began when her neighbor across the [place] in her apartment complex was yelling tonight. Patient reports that she is been under significant stress over weeks to months due to outbursts by her neighbor.? M/S/F/SocHx notable for: please see HPI; remainder reviewed with patient and in chart.? ROS: Negative constitutional, eye, cardiovascular, pulmonary, GI, , MSK, skin, neurologic, psychiatric, endocrine unless noted in the HPI. ?? Exam HR 60, RR 16, BP 134 69, T 36.5??C, SaO2 94% on room air. Gen: Pleasant, non-toxic appearing, resting comfortably. HEENT: NC, AT, PEERL, EOMI. Resp: Clear to auscultation bilaterally, normal work of breathing. Card: RRR with no M/R/G, no crackles in lung bases, no pedal edema, no JVD appreciated.?? GI: NT/ND Vascular: Both ankles, calves, and thighs of equal size, no calf tenderness to palpation bilaterally. MSK: No chest wall TTP. No visible deformities, strength and tone WNL. Skin: Normal color with no visible lesions. Neuro:??alert and oriented?3, no facial asymmetry, vision and hearing WNL. Psych: Mood and affect appropriate.? Labs WBC 4.9, Hb 9.6, Na 140, K 4.4. Troponin (11:43 PM) 25.0, troponin (1:45 AM) 24.4 ?? Imaging EKG (11:19 PM): SR at 62 bpm, no AZ segment depressions, borderline ST segment elevation in the anterior leads, no further ST segment elevations or depressions, no hyperacute T waves or discordant T-wave abnormalities. ?? EKG (3:34 AM): SR 62??bpm, no significant change in morphology. ?? CXR: vague, approximately 7 x 3.5 cm area of increased opacity over the peripheral perihilar right lung. This is stable over the short interim appears relatively stable since August 21, 2021 ?? [facility] Previous chart, nursing note, and vitals reviewed.?? A:??77 y/o female with a history of CKD, depression, HTN, PTSD, DM, and chest pain presents for evaluation of recurrent chest pain that began when her neighbor across the [place] in her apartment complex was yelling tonight. ?? DDx: ACS, unstable angina, pericarditis, myocarditis, dissection, PE, mediastinal air, pneumothorax, MSK, endocarditis, GI (GERD, gastritis, esophageal rupture, esophageal spasm). ?? Evaluation: no clear evidence of ACS by negative serial troponins and ECG is without clear evidenceof ischemia. ECGs were compared with prior??EKGs that were on file, no significant change in morphology from 06/09/22, slight change in morphology from 05/16/22, the nonspecific J-point elevation in lead V2 appears to be different from 05/14/22 but no significant change from 05/12/22. Imaging and exam without evidence of effusions, dissection, or pneumonia. No identifiable features suggestive of PE. Given the patient???s recurrent nature of chest pain after stressful interactions with her neighbor and the same preceding events night, suspect a complement of anxiety and stress avoidance/presentation for secondary gain. Above evaluation without evidence of the remainder of the differential. ?? Disposition: Discharge with PCP follow up. Return to care precautions given verbally and in writing.? Impression: Chest Pain. Electronically Signed on 06/13/22 04:09 AM Chun Vega MD Emergency department Discharge instructions * Chun Vega MD: PERFORM Event Display: ED Discharge Information Authored Date: [id number] CECILIAMARIA INES :1945 Age:77 years Sex:Female Visit Date:06/12/2022 Primary Care Physician: Jeannine Fernandes MD Discharge Instructions We would like to thank you for allowing us to assist you with your healthcare needs. The following includes patient education materials and information regarding your injury/illness. ?? You were seen at [facility] for evaluation for evaluation of??chest pain.??Please [...] a free pharmacy discount service such as [employer] [facility] ([employer]) or [employer] ([employer]). These services allow you to search for [...] you have new symptoms or concerns. ?? Discharge Vitals Temperature??(Temporal Artery) 97.7 ??F (36.5 ??C) Heart Rate??(Monitored) 62 Respiratory Rate?? 17 Blood Pressure?? 139/67?? Height?? 66.14 in (168.000 cm) Weight?? 169.78 lb (77.00 kg) BMI?? 27.000 Allergies azithromycin??(Skin rash) codeine??(Rapid heart beat) What [...] for Prescription (BD UF Pen Needle Mini [id number]) See instructions DM2 (diabetes mellitus, type 2) [...] Other Prescription (BD UF MINI PEN NEEDLE [id number]) See instructions USE DIRECTED FOUR TIMES A [...] Lab Test Name Test Result Date/Time WBC 4.9 x10^3/mcL 06/12/2022 23:43 EST RBC 3.1 x10^6/mcL 06/12/2022 23:43 EST Hgb 9.6 g/dL 06/12/2022 23:43 EST Hct 30.0 % 06/12/2022 23:43 EST MCV 97.1 06/12/2022 23:43 EST MCH 31.1 pg 06/12/2022 23:43 EST MCHC 32.0 g/dL 06/12/2022 23:43 EST RDW-CV 15.2 % 06/12/2022 23:43 EST Platelets 132 x10^3/mcL 06/12/2022 23:43 EST Neutro Auto 48.5 % 06/12/2022 23:43 EST Lymph Auto 32.0 % 06/12/2022 23:43 EST Elbert Auto 11.6 % 06/12/2022 23:43 EST Eos, Auto 6.7 % 06/12/2022 23:43 EST Basophil Auto 0.8 % 06/12/2022 23:43 EST Imm Gran Auto 0.4 % 06/12/2022 23:43 EST Neutro Absolute 2.4 x10^3/mcL 06/12/2022 23:43 EST Sodium Level 140 mmol/L 06/12/2022 23:43 EST Potassium Level 4.4 mmol/L 06/12/2022 23:43 EST Chloride Level 102 mmol/L 06/12/2022 23:43 EST CO2 29 mmol/L 06/12/2022 23:43 EST BUN 46 mg/dL 06/12/2022 23:43 EST Glucose Level 143 mg/dL 06/12/2022 23:43 EST Creatinine Level 2.91 mg/dL 06/12/2022 23:43 EST eGFR AA 16 06/12/2022 23:43 EST eGFR Non-AA 16 06/12/2022 23:43 EST Calcium Level 11.8 mg/dL 06/12/2022 23:43 EST Troponin-I 24.4 pg/mL 06/13/2022 01:45 EST Patient/Beater Head Signature Patient Name:MARIA INES BROOKS I have received this information and my questions have been answered. Patient/Beater Head Name: Patient/Beater Head Signature: Relationship to Patient: Witness Name/Signature: Date: Electronically Signed on: 06/13/2022 04:09 ESTSigned by:CONSTANTINE Emergency department Note * Remedios Whitfield: PERFORM Event Display: ED Notes Authored Date: [id number] * Remedios Whitfield: PERFORM Event Display: ED Notes Authored Date: [id number] Patient Care team information Personnel Name: Jeannine Fernandes MD Address: Address: [place] [id number] Name: Noreen York
--- OUTSIDE RECORDS SUMMARY | 2022-12-19 08:42 | XMS_ITS | Continuity of Care Document ---
Author Name Unknown Organization [facility] Address [address] [place] [address] Care Team Providers Care Manufacture Specialist Name Role Phone Jeannine Fernandes Primary Care Physician [phone] Noreen York Unavailable Unavailable Encounter [id number] Date(s): 11/11/22 - 11/11/22 [facility] [address] [place] [address] us Encounter Diagnosis Urinary tract infection(Discharge Diagnosis) - 11/11/22 Hyperglycemia(Discharge Diagnosis) - 11/11/22 Discharge Disposition: Home or Self Care Attending Physician: Nayana Wheatley MD Admitting Physician: Nayana Wheatley MD Allergies, Adverse Reactions, Alerts Substance Reaction Severity Status codeine Rapid heart beat Unknown Active azithromycin Skin rash Unknown Active Assessment and Plan Future Appointments Diagnostic Tests Pending * Urine Culture 11/11/22 Future Scheduled Tests Laboratory* Magnesium Level 05/22/22 [...] 4 tab, 0 Refill(s), 11/18/22 13:24:00 EDT, Pharmacy:[facility], 168, cm, 11/11/22 10:49:00 EDT, Height/Length Dosing, 62, kg, 11/11/22 10:49:00 EDT, Weight Dosing Start Date: 11/11/22 Stop Date: 11/18/22 Status: Ordered amLODIPine 5 mg oral tablet 5 mg = 1 tab, Oral, Daily, # 90 tab, 3 Refill(s), Pharmacy: [facility], 168, cm, 09/23/22 17:19:00 EDT, Height/Length Dosing, 64.1, kg, 09/23/22 17:19:00 EDT, Weight Dosing Start Date: 10/20/22 Status: Ordered aspirin 81 mg oral tablet, chewable 81 mg = 1 tab, Oral, Daily, # 90 tab, 0 Refill(s), Pharmacy: [facility], 160, cm, 06/14/22 22:46:00 EST, Height/Length Dosing, 83, kg, 06/14/22 22:46:00 EST, Weight Dosing Start Date: 08/28/22 Status: Ordered atorvastatin 40 mg oral tablet 1 tab, Oral, Daily, # 84 tab, 0 Refill(s), Pharmacy: [facility] [address], 160, cm, 06/14/22 22:46:00 EST, Height/Length Dosing, 83, kg, 06/14/22 22:46:00 EST, Weight Dosing Start Date: 08/24/22 Status: Ordered BD Pen Needle Mini U/F 31G X 5 MM MISC BD Pen Needle Mini U/F 31G X 5 MM MISC, See Instructions, USE FOUR TIMES A DAY DIRECTED, # 100 EA, 2 Refill(s), Pharmacy: [facility] [address], 160, cm, 06/14/22 22:46:00 EST, Height/Length Dosing, 83, kg, 06/14/22 22:46:00 EST, Weight Dosing Start Date: 07/26/22 Status: Ordered BD UF MINI PEN NEEDLE [id number] BD UF MINI PEN NEEDLE [id number], See Instructions, USE DIRECTED FOUR TIMES A DAY NEEDED, # 100 EA, 3 Refill(s), Pharmacy: [facility] Start Date: 02/24/22 Status: Ordered BD UF Pen Needle Mini [id number] BD UF Pen Needle Mini [id number], Use one needle for each injection daily. (current Injections are 4 times daily), Supply, See instructions, # 100 EA, 2 Refill(s), Pharmacy: [facility] Start Date: 01/16/22 Status: Ordered Colace 100 mg oral capsule 100 mg = 1 cap, Oral, Daily, PRN as needed for constipation, # 90 cap, 0 Refill(s), Pharmacy: [facility] [place], [place], 168, cm, 09/23/22 17:19:00 EDT, Height/Length Dosing, 64.1, kg, 09/23/22 17:19:00 EDT, Weight Dosing Start Date: 10/13/22 Status: Ordered ferrous gluconate 324 mg (38 mg elemental iron) oral tablet 324 mg = 1 tab, Oral, Daily, # 90 tab, 0 Refill(s), Pharmacy: [facility], 160, cm, 08/31/22 11:50:00 EDT, Height/Length [...] 0 Refill(s), Pharmacy: [facility], 160, cm, 08/31/22 11:50:00 EDT, Height/Length Dosing, 36.2, kg, 08/31/22 11:50:00 EDT, Weight Dosing Start Date: 09/01/22 Status: Ordered Glucerna Glucerna, Twice a day, Supply, See instructions, # 60 EA, 3 Refill(s), Pharmacy: [facility] Start Date: 07/13/22 Status: Ordered HumaLOG KwikPen 100 units/mL injectable solution 5 units =, Subcutaneous, TID(AC), # 3 mL, 3 Refill(s), Pharmacy: [facility], 167, cm,10/29/22 16:36:00 EDT, Height/Length Dosing, 64.86, kg, 10/29/22 16:36:00 EDT, Weight Dosing Start Date: 11/09/22 Status: Ordered Levemir FlexTouch 100 units/mL subcutaneous solution 15 units =, Subcutaneous, every night at bedtime Start Date: 05/13/22 Status: Ordered magnesium oxide 400 mg (241.3 mg elemental magnesium) oral tablet 1 tab, Oral, BID, # 56 tab, 3 Refill(s), Pharmacy: [facility] [id number], 168, cm, 09/01/22 14:46:00 EDT, Height/Length Dosing, 66.2, kg, 09/01/22 14:46:00 EDT, Weight Dosing Start Date: 09/22/22 Status: Ordered Melatonin 3 mg oral tablet 1 tab, Oral, every night at bedtime, # 28 tab, 3 Refill(s), Pharmacy: [facility], 168, cm, 09/01/22 14:46:00 EDT, Height/Length Dosing, 66.2, kg, 09/01/22 14:46:00 EDT, Weight Dosing Start Date: 09/22/22 Status: Ordered memantine 5 mg oral tablet 5 mg = 1 tab, Oral, BID, # 60 tab, 5 Refill(s), Pharmacy: [facility] [place], 168, cm, 09/23/22 17:19:00 EDT, Height/Length Dosing, 64.1, kg, 09/23/22 17:19:00 EDT, Weight Dosing Start Date: 10/23/22 Status: Ordered Metoprolol Succinate ER 25 mg oral tablet, extended release 25 mg = 1 tab, Oral, Daily, TAKE ONE TABLET BY MOUTH EVERY DAY, # 90 tab, 3 Refill(s), Pharmacy: [facility] Start Date: 01/01/22 Status: Ordered MiraLax oral powder for reconstitution 17 g, Oral, Daily, PRN constipation, # 12 EA, 5 Refill(s), Pharmacy: [facility], 168,cm, 09/23/22 17:19:00 EDT, Height/Length Dosing, 64.1, kg, 09/23/22 17:19:00 EDT, Weight Dosing Start Date: 10/23/22 Status: Ordered mupirocin 2% topical ointment See Instructions, APPLY A SMALL AMOUNT TOPICALLY TO AFFECTED AREA(S) THREE TIMES A DAY, # 22 g, 1 Refill(s), Pharmacy: [facility] Start Date: 03/23/22 Status: Ordered nitroglycerin 0.4 mg sublingual tablet 0.4 mg = 1 tab, SL, every 5 min, not to exceed 3 doses/15 min--if pain persists, seek medical attention, # 30 tab, 0 Refill(s), Pharmacy: [facility], 160, cm, 06/14/22 22:46:00 EST, Height/Length Dosing, 83, kg, 06/14/22 22:46:00 EST, We... Start Date: 06/18/22 Status: Ordered Onetouch Ultra Blue Test Strips Onetouch Ultra Blue Test Strips, use as directed four times daily, Supply, See instructions, # 300 EA, 12 Refill(s), Pharmacy: [facility] Start Date: 07/27/22 Status: Ordered oxybutynin 5 [...] BID, # 180 tab, 5 Refill(s), [facility], 168, cm, 09/23/22 17:19:00 EDT, Height/Length Dosing, 64.1, kg, 09/23/22 17:19:00 EDT, Weight Dosing Start Date: 10/23/22 Status: Ordered venlafaxine 150 mg oral capsule, extended release 150 mg = 1 cap, Oral, Daily, # 90 cap, 3 Refill(s), [facility], 160, cm, 08/31/22 11:50:00 EDT, Height/Length Dosing, 36.2, kg, 08/31/22 11:50:00 EDT, Weight Dosing Start Date: 09/01/22 Status: Ordered Vitamin B2 100 mg oral tablet See Instructions, TAKE 1 TABLET BY MOUTH DAILY, # 84 tab, 2 Refill(s), Pharmacy: [facility] [address], 168, cm, 09/01/22 14:46:00 EDT, Height/Length Dosing, [...] scan to determine ideal site for biopsy. 11om 10-13-2021 visit: BS have been better controlled, [...] Results Laboratory List Name Date Urinalysis Microscopic 11/11/22 Urinalysis with Micro if Indicated and C ulture if Indicated 11/11/22 CBC w/ Diff 11/11/22 Comprehensive Metabolic Panel (CMP) Automated Diff 11/11/22 Glucose POCT 11/11/22 Most recent to oldest [Reference Range]: 1 WBC [5.0-10.0 x10^3/mcL] 7.4 x10^3/mcL (11/11/22 12:13 PM) RBC [4.1-5.3 x10^6/mcL] 3.4 x10^6/mcL *LOW* (11/11/22 12:13 PM) Neutro Auto [40.0-75.0 %] 70.9 % (11/11/22 12:13 PM) Lymph Auto [20.0-50.0 %] 14.7 % *LOW* (11/11/22 12:13 PM) Henderson Auto [2.0-15.0 %] 8.9 % (11/11/22 12: PM) Basophil Auto [0.0-1.0 %] 0.8 % (11/11/22: PM) BUN [7-18 mg/dL] 37 mg/dL *HI* (11/11/22: PM) Glucose POC [74-106 mg/dL] 248 mg/dL *HI* (11/11/22 10:53 AM) UA Color Yellow (11/11/22 PM) UA WBC [0-3] 3-5 *ABN* (11/11/22: PM) Glucose Level [74-106 mg/dL] 275 mg/dL *HI* (11/11/22: PM) Potassium Level [3.5-5.1 mmol/L] 3.8 mmo l/L (11/11/22: PM) MCV [80.0-96.0 fL] 94.8 fL (11/11/22: PM) UA Urobilinogen Normal (11/11/22 PM) UA Hyal Cast Rare /HPF (11/11/22 12:43 PM) UA Bili [Negative] Negative (11/11/22 12:43 PM) UA Ketones Trace *ABN* (11/11/22 PM) AST [15-37 unit/L] 16 unit/L (11/11/22: PM) ALT [14-59 unit/L] 14 unit/L (11/11/22: PM) MCHC [31.0-35.0 g/dL] 33.5 g/dL (11/11/22 PM) UA Ca Ox Crystal Few /HPF (11/11/22:43 PM) Sodium Level [136-145 mmol/L] 135 mmol/L *LOW* (11/11/22: PM) UA RBC [0-2] 0-2 (11/11/22:43 PM) UA Leuk Est Trace *ABN* (11/11/2243 PM) UA Nitrite Negative (11/11/22: PM) UA Glucose [Negative] 1+ *ABN* (11/11/22 PM) Hct [37.0-47.0 %] 32.5 % *LOW* (11/11/22 12:13 PM) UA Bacteria Moderate /HPF *ABN* (11/11/22 12:43 PM) Calcium Level [8.5-10.1 mg/dL] 13.0 mg/d L 1 *CRIT* (11/11/22 12:13 PM) Albumin Level [3.4-5.0 g/dL] 3.0 g/dL *LOW* (11/11/22: PM) Protein Total [6.4-8.2 g/dL] 7.2 g/dL (11/11/22 12:13 PM) UA Protein 2+ *ABN* (11/11/22 12:43 PM) MCH [26.0-32.0 pg] 31.8 pg (11/11/22: PM) Neutro Absolute 5.2 x10^3/mcL *NA* (11/11/22 12:13 PM) Bilirubin Total [0.2-1.0 mg/dL] 0.5 mg/d L (11/11/22 12:13 PM) Hgb [12.0-16.0 g/dL] 10.9 g/dL *LOW* (11/11/22 12:13 PM) Alk Phos [46-146 unit/L] 104 unit/L (11/11/22 12:13 PM) UA Blood Trace *ABN* (11/11/22 12:43 PM) UA Mucous Few /HPF *ABN* (11/11/22 12:43 PM) UA Spec Grav >=1.030 *NA* (11/11/22 12:43 PM) Platelets [130-450 x10^3/mcL] 150 x10^3/ mcL (11/11/22 12:13 PM) CO2 [21-32 mmol/L] 29 mmol/L (11/11/22 12:13 PM) UA Squam Epithelial [None Seen] Many *ABN* (11/11/22 12:43 PM) UA pH 5.5 *NA* (11/11/22 12:43 PM) eGFR Non-AA [>=60] 15 *LOW* (11/11/22 12:13 PM) eGFR AA [>=60] 15 *LOW* (11/11/22 12:13 PM) UA Appear Cloudy *ABN* (11/11/22 12:43 PM) Chloride Level [98-107 mmol/L] 99 mmol/L (11/11/22 12:13 PM) RDW-CV [11.5-14.5 %] 14.9 % *HI* (11/11/22 12:13 PM) Imm Gran Auto [0.0-0.9 %] 0.4 % (11/11/22 12:13 PM) UA Culture Ind?. Indicated (11/11/22 12:43 PM) UA Amorph Rare /HPF (11/11/22 12:43 PM) Creatinine Level [0.55-1.02 mg/dL] 3.14 mg/dL *HI* (11/11/22 12:13 PM) Eos, Auto [1.0-6.0 %] 4.3 % (11/11/22 12:13 PM) 1Result Comment: Called to and verbally verified by Makenzie Rene (ER) at _11/11/2022 12:46:34 EDT PJB. Vital Signs Most recent to oldest [Reference Range]: 1 2 Temperature Temporal Artery [36-38 Deg C ] 37 Deg C (11/11/22 10:24 AM) Peripheral Pulse Rate [60-100 bpm] 64 bp m (11/11/22 1:18 PM) 82 bpm (11/11/22 10:24 AM) Respiratory Rate [12-24 br/min] 18 br/mi n (11/11/22 1:18 PM) 16 br/min (11/11/22 10:24 AM) Blood Pressure [90-140/60-90 mmHg] 155/6 7mmHg *HI* (11/11/22 1:18 PM) 144/76mmHg *HI* (11/11/22 10:24 AM) Mean Arterial Pressure, Cuff [65-140 mmH g] 96 mmHg (11/11/22 1:18 PM) Weight Dosing 62.00 kg (11/11/22 10:49 AM) Weight Estimated 62.00 kg (11/11/22 10:24 AM) Height/Length Dosing 168.000 cm (11/11/22 10:49 AM) Height/Length Estimated 168.000 cm (11/11/22 10:24 AM) Social History Social History Type Response Tobacco Never tobacco user T obacco Use:. Sex Female Hospital Discharge Instructions Patient Education 11/11/2022 12:21:20 Urinary Tract Infection, Adult Urinary Tract Infection, Adult A urinary tract infection (UTI) is an infection of any part of the urinary tract. The urinary tractincludes the kidneys, ureters, bladder, and urethra. These organs make, store, and get rid of urinein the body. An upper UTI affects the ureters and kidneys. A lower UTI affects the bladder and urethra. What are the causes? Most urinary tract infections are caused by bacteria in your genital area around your urethra, where urine leaves your body. These bacteria grow and cause inflammation of your urinary tract. What increases the risk? You are more likely to develop this condition if: ??? You have a urinary catheter that stays in place. ??? You are not able to control when you urinate or have a bowel movement (incontinence). ??? You are female and you: ??? Use a spermicide or diaphragm for control. ??? Have low estrogen levels. ??? Are . ??? You have certain genes that increase your risk. ??? You are sexually active. ??? You take antibiotic medicines. ??? You have a condition that causes your flow of urine to slow down, such as: ??? An enlarged prostate, if you are male. ??? Blockage in your urethra. ??? A kidney stone. ??? A nerve condition that affects your bladder control (neurogenic bladder). ??? Not getting enough to drink, or not urinating often. ??? You have certain medical conditions, such as: ??? Diabetes. ??? A weak disease-fighting system (immunesystem). ??? Sickle cell disease. ??? Gout. ??? Spinal cord injury. What are the signs or symptoms? Symptoms of this condition include: ??? Needing to urinate right away (urgency). ??? Frequent urination. This may include small amounts of urine each time you urinate. ??? Pain or burning with urination. ??? Blood in the urine. ??? Urine that smells bad or unusual. ??? Trouble urinating. ??? Cloudy urine. ??? Vaginal discharge, if you are female. ??? Pain in the abdomen or the lower back. You may also have: ??? Vomiting or a decreased appetite. ??? Confusion. ??? Irritability or tiredness. ??? A fever or chills. ??? Diarrhea. The first symptom in older adults may be confusion. In some cases, they may not have any symptoms until the infection has worsened. How is this diagnosed? This condition is diagnosed based on your medical history and a physical exam. You may also have other tests, including: ??? Urine tests. ??? Blood tests. ??? Tests for STIs (sexually transmitted infections). If you have had more than one UTI, a cystoscopy or imaging studies may be done to determine the cause of the infections. How is this treated? Treatment for this condition includes: ??? Antibiotic medicine. ??? Uuzw-gby-caxhjcm medicines to treat discomfort. ??? Drinking enough water to stay hydrated. If you have frequent infections or have other conditions such as a kidney stone, you may need to see a health care provider who specializes in the urinary tract (urologist). In rare cases, urinary tract infections can cause sepsis. Sepsis is a life- threatening condition that occurs when the body responds to an infection. Sepsis is treated in the hospital with IV antibiotics, fluids, and other medicines. Follow these instructions at home: Medicines ??? Take [id number] and prescription medicines only as told by your health care provider. ??? If you were prescribed an antibiotic medicine, take it as told by your health care provider. Donot stop using the antibiotic even if you start to feel better. General instructions ??? Make sure you: ??? Empty your bladder often and completely. Do not hold urine for long periods of time. ??? Empty your bladder after sex. ??? Wipe from front to back after urinating or having a bowel movement if you are female. Use each tissue only one time when you wipe. ??? Drink enough fluid to keep your urine pale yellow. ??? Keep all follow-up visits. This is important. Contact a health care provider if: ??? Your symptoms do not get better after 1???2 days. ??? Your symptoms go away and then return. Get help right away if: ??? You have severe pain in your back or your lower abdomen. ??? You have a fever or chills. ??? You have nausea or vomiting. Summary ??? A urinary tract infection (UTI) is an infection of any part of the urinary tract, which includes the kidneys, ureters, bladder, and urethra. ??? Most urinary tract infections are caused by bacteria in your genital area. ??? Treatment for this condition often includes antibiotic medicines. ??? If you were prescribed an antibiotic medicine, take it as told by your health care provider. Donot stop using the antibiotic even if you start to feel better. ??? Keep all follow-up visits. This is important. This information is not intended to replace advice given to you by your health care provider. Make sure you discuss any questions you have with your health care provider. Document Revised: 01/03/2021 Document Reviewed: 01/03/2021 [employer] Patient Education ?? 2021 [employer]. Follow Up Care 11/11/2022 10:24:32 With:Follow up with primary care provider Address: When:2 to 4 days Physician Emergency department Note * Nayana Wheatley MD: PERFORM Event Display: ED Note Physician Authored Date: [id number] MARIA INES BROOKS :1945 Age:77 years Sex:Female Visit Date:11/11/2022 Primary Care Physician: Jeannine Fernandes MD Basic Information Time Seen: Nayana Wheatley MD / 11/11/2022 11:31 Chief Complaint Pt brought in by home health per PCP. Pt reports high blood sugar in 400-500 for last few days. Caregiver reports concern for increasing confusion. Pt A&Ox4 in triage, denies any pain. Did not check BS this morning at home. History Of Present Illness: 77-year-old lady??with a history of??anemia,??CKD stage IV,??depression,??GERD,??hypertension,??IBS, PTSD, depression, diabetes,??urinary incontinence,??UTIs, hypercalcemia, who presents to the emergency department with home health aide??for evaluation. The home health aide??stated that she cares for the patient on??Wednesday, Wednesday and .?? Yesterday when she saw her??she found her to be??confused,??unable to check her??sugar herself??and with elevated recent reads in her machine.?? She says the highest number was in the 500s.?? EMT came around 2 PM??and checked the patient's glucose and administered??her insulin, after which??the??home health??noted resolution of confusion??and improvement in glucose reads.?? She says that because of what happened she wanted the patient to be checked. The patient is??ANO x3 at the moment,??she reports chronic left upper??abdominal pain with nausea??but has had no vomiting. ??Nausea resolved with??drinking water.?? The patient is undergoing work-upwith primary care for this chronic pain.?? She does report increased urgency and frequency??withoutdysuria. ??She has had no fevers or chills,??no flank pain, her appetite is at baseline.?? She has had no cough, no numbness, tingling or weakness anywhere.?? No headache or neck pain. Physical Exam Vitals & Measurements T:??37?C ??(Temporal Artery)?? HR:??64??(Peripheral)?? RR:??18?? BP:??155/67?? SpO2:??100%?? HT:??168.000??cm?? WT:??62.00??kg??(Estimated)?? O2 Therapy:??Room air?? General: A&Ox3, Calm, no apparent distress, well developed, pleasant and cooperative ?? HEENT: Head ATNC. Eyes: KAREN. Extraocular Mobility: intact and symmetrical. Conjunctiva: non-injected, anicteric, no discharge. Oral Cavity: moist. Neck: no masses, no crepitus. Lymph Nodes: no cervical lymphadenopathy? Respiratory: CTA bilaterally, no wheezing, no rales/crackles? CV: RRR, normal S1, normal S2, no murmurs, rubs or gallops ?? Abdomen : soft, non-tender, non-distended, no rebound or guarding, no hepatosplenomegaly ?? Extremities: no le swelling, warm and well-perfused, no cyanosis, capillary refill <2 seconds? Skin: no rash, no lesions, no bruising? Neuro: normal tone, normal strength in all 4 extremities, sensation intact?? Medical Decision Makin-year-old lady??with a history of??anemia,??CKD stage IV,??depression,??GERD,??hypertension,??IBS, PTSD, depression, diabetes,??urinary incontinence,??UTIs, hypercalcemia,??who presents to the emergency department with home health aide??for evaluation of elevated glucose and confusion??a few daysago which have now resolved. ? Thorough chart review performed, nursing triage note reviewed, vitals reviewed ?? The patient is well and non toxic appearing with reassuring VS. FS is under 300. Will r/o infection as cause of hyperglycemia leading to confusion The patient has a h/o UTIs and reports increased urgency and frequency Plan; Labs, UA, monitor and r/a Labs stable with no leukocytosis,??renal function is at baseline,??anion gap??of 7??or 9.5 when corrected for albumin,??within normal limits Glucose??below 300??on BMP as well UA??concerning for urinary tract infection Review of prior urine cultures shows patient grew pansensitive E. coli??several months ago,??good sensitivity to leg Levaquin.?? Her dose for GFR 15 comes to 750 mg per initial dose then 500 mg every48 hours Patient will need to follow-up with primary care for reevaluation??in 2 to 3 days Discharge instructions and return precautions discussed, all questions answered. This visit required Assessment required independent historian Independent interpretation of test performed by another physician/qualified health nurse wound care Ordered each unique test Reviewed results of each unique tests Discussion of management or test interpretation with external physician/other qualified health careprofessional/appropriate source: Procedure No Qualifying Data Assessment/Plan 1.??Urinary tract infection??N39.0 Ordered: !-Levaquin 500 mg oral tablet, 500 mg = 1 tab, Oral, every 48 hr, X 7 days, # 4 tab, 0 Refill(s), 11/18/22 13:24:00 EDT, Pharmacy: [facility], 168, cm, 11/11/22 10:49:00 EDT, Height/Length Dosing, 62, kg, 11/11/22 10:49:00 EDT, Weight Dosing Discharge Patient, 11/11/22 13:22:00 EDT, Constant Indicator ?? 2.??Hyperglycemia??R73.9 Ordered: !-Levaquin 500 mg oral tablet, 500 mg = 1 tab, Oral, every 48 hr, X 7 days, # 4 tab, 0 Refill(s), 11/18/22 13:24:00 EDT, Pharmacy: [facility], 168, cm, 11/11/22 10:49:00 EDT, Height/Length Dosing, 62, kg, 11/11/22 10:49:00 EDT, Weight Dosing Discharge Patient, 11/11/22 13:22:00 EDT, Constant Indicator ?? Orders: Urine Culture, Urine, Stat collect, ST - Stat, 11/11/22 12:43:00 EDT, Once, Nurse collect, Collected, 11/11/22 12:43:00 EDT, Print Label, [id number] Patient Education Urinary Tract Infection, Adult Follow Up With When Contact Information Follow up with primary care provider Within 2 to 4 days Additional Instructions: Medication Reconciliation New Prescription levoFLOXacin (!-Levaquin 500 mg oral tablet)1 tab Oral (given by mouth) every 48 hours for 7 Days. Refills: 0. ?? Unchanged amLODIPine (amLODIPine 5 mg oral [...] for Prescription (BD UF Pen Needle Mini 25Fx7sp)Use one needle for each injection daily. (current [...] mouth) every day. Refills: 0. ?? insulin detemir (Levemir FlexTouch [...] Other Prescription (BD UF MINI PEN NEEDLE [id number])USE DIRECTED FOUR TIMES A DAY NEEDED. Refills: 3. ?? oxybutynin (oxybutynin 5 mg oral tablet)1 tab Oral (given by mouth) 2 times a day as needed as needed for urinary discomfort. 2-3 TIMES DAILY NEEDED. Refills: 0. ?? pantoprazole (pantoprazole 40 mg oral delayed release tablet)1 tab Oral (given by mouth) every day. ?? polyethylene glycol 3350 (MiraLax oral powder [...] bleed Hyperlipidemia Hyperosmolality Hypertensive disorder Idiopathic osteoarthritis Imaging abnormality Irritable bowel syndrome with diarrhea Migraine Obesity Posttraumatic stress disorder Recurrent major depression Renal mass Type 2 diabetes mellitus without complication Unintended weight loss Urinary incontinence Urinary tract infectious disease Historical No qualifying data Procedure/Surgical History ???Colonoscopy (11/23/2014)???Ventral Hernia Repair (01/18/2012)???EGD - Esophagogastroduodenoscopy(06/13/2008)???Oophorectomy- left (06/07/2003)???Appendectomy (06/07/1979)???Oophorectomy-right (06/1979)???Cholecystectomy (06/07/1973)???Total abdominal hysterectomy (06/07/1971) Medication Administration Given !-Levaquin, 750 mg, Oral Allergies azithromycin??(Skin rash) codeine??(Rapid heart [...] and Differential?? LATEST RESULTS?? HISTORICAL RESULTS?? WBC?? 11/11/22 12:13?? 7.4?? 11/05/22?? 8.0?? RBC?? 11/11/22 12:13?? 3.4 ??Low?? 11/05/22?? 3.9 ??Low?? Hgb?? 11/11/22 12:13?? 10.9 ??Low?? 11/05/22?? 12.0?? Hct?? 11/11/22 12:13?? 32.5 ??Low?? 11/05/22?? 37.0?? MCV?? 11/11/22 12:13?? 94.8?? 11/05/22?? 95.4?? MCH?? 11/11/22 12:13?? 31.8?? 11/05/22?? 30.9?? MCHC?? 11/11/22 12:13?? 33.5?? 11/05/22?? 32.4?? RDW-CV?? 11/11/22 12:13?? 14.9 ??High?? 11/05/22?? 14.7 ??High?? Platelets?? 11/11/22 12:13?? 150?? 11/05/22?? 178?? Neutro Auto?? 11/11/22 12:13?? 70.9?? 11/05/22?? 63.5?? Lymph Auto?? 11/11/22 12:13?? 14.7 ??Low?? 11/05/22?? 21.9?? Henderson Auto?? 11/11/22 12:13?? 8.9?? 11/05/22?? 8.3?? Eos, Auto?? 11/11/22 12:13?? 4.3?? 11/05/22?? 4.9?? Basophil Auto?? 11/11/22 12:13?? 0.8?? 11/05/22?? 1.1 ??High?? Imm Gran Auto?? 11/11/22 12:13?? 0.4?? 11/05/22?? 0.3?? Neutro Absolute?? 11/11/22 12:13?? 5.2?? 11/05/22?? 5.1? Routine Chemistry?? LATEST RESULTS?? HISTORICAL RESULTS?? Sodium Level?? 11/11/22 12:13?? 135 ??Low?? 11/05/22?? 138?? Potassium Level?? 11/11/22 12:13?? 3.8?? 11/05/22?? 3.6?? Chloride Level?? 11/11/22 12:13?? 99?? 11/05/22?? 97 ??Low?? CO2?? 11/11/22 12:13?? 29?? 11/05/22?? 28?? Alk Phos?? 11/11/22 12:13?? 104?? 11/05/22?? 107?? AST?? 11/11/22 12:13?? 16?? 11/05/22?? 15?? ALT?? 11/11/22 12:13?? 14?? 11/05/22?? 12 ??Low?? BUN?? 11/11/22 12:13?? 37 ??High?? 11/05/22?? 38 ??High?? Glucose Level?? 11/11/22 12:13?? 275 ??High?? 11/05/22?? 318 ??High?? Creatinine Level?? 11/11/22 12:13?? 3.14 ??High?? 11/05/22?? 3.28 ??High?? eGFR AA?? 11/11/22 12:13?? 15 ??Low?? 11/05/22?? 14 ??Low?? eGFR Non-AA?? 11/11/22 12:13?? 15 ??Low?? 11/05/22?? 14 ??Low?? Calcium Level?? 11/11/22 12:13?? 13.0 ??Critical?? 11/05/22?? 13.0 ??Critical?? Protein Total?? 11/11/22 12:13?? 7.2?? 11/05/22?? 7.9?? Albumin Level?? 11/11/22 12:13?? 3.0 ??Low?? 11/05/22?? 3.2 ??Low?? Bilirubin Total?? 11/11/22 12:13?? 0.5?? 11/05/22?? 0.5?? Glucose POC?? 11/11/22 10:53?? 248 ??High?? 10/29/22?? 322 ??High? UA Macroscopic?? LATEST RESULTS?? HISTORICAL RESULTS?? UA Color?? 11/11/22 12:43?? Yellow?? 09/23/22?? Yellow?? UA Appear?? 11/11/22 12:43?? Cloudy Abnormal?? 09/23/22?? Clear?? UA Glucose?? 11/11/22 12:43?? 1+ Abnormal?? 09/23/22?? 1+ Abnormal?? UA Bili?? 11/11/22 12:43?? Negative?? 09/23/22?? Negative?? UA Ketones?? 11/11/22 12:43?? Trace Abnormal?? 09/23/22?? Negative?? UA Spec Grav?? 11/11/22 12:43?? >=1.030?? 09/23/22?? <=1.005?? UA Blood?? 11/11/22 12:43?? Trace Abnormal?? 09/23/22?? 1+ Abnormal?? UA pH?? 11/11/22 12:43?? 5.5?? 09/23/22?? 5.5?? UA Protein?? 11/11/22 12:43?? 2+ Abnormal?? 09/23/22?? Negative?? UA Urobilinogen?? 11/11/22 12:43?? Normal?? 09/23/22?? Normal?? UA Nitrite?? 11/11/22 12:43?? Negative?? 09/23/22?? Negative?? UA Leuk Est?? 11/11/22 12:43?? Trace Abnormal?? 09/23/22?? 1+ Abnormal?? UA Culture Ind?.?? 11/11/22 12:43?? Indicated?? 09/23/22?? Indicated? UA Microscopic?? LATEST RESULTS?? HISTORICAL RESULTS?? UA WBC?? 11/11/22 12:43?? 3-5 Abnormal?? 09/23/22?? 5-10 Abnormal?? UA RBC?? 11/11/22 12:43?? 0-2?? 09/23/22?? 3-5?? UA Squam Epithelial?? 11/11/22 12:43?? Many Abnormal?? 09/23/22?? Few Abnormal?? UA Mucous?? 11/11/22 12:43?? Few Abnormal?? 09/23/22?? None Seen?? UA Bacteria?? 11/11/22 12:43?? Moderate Abnormal?? 09/23/22?? None Seen?? UA Amorph?? 11/11/22 12:43?? Rare? UA Hyal Cast?? 11/11/22 12:43?? Rare?? 06/10/22?? Rare?? UA Ca Ox Crystal?? 11/11/22 12:43?? Few?? 04/09/22?? Few? Electronically Signed on 11/11/22 02:55 PM Nayana Wheatley MD Emergency department Discharge instructions * Nayana Wheatley MD: PERFORM Event Display: ED Discharge Information Authored Date: [id number] MARIA INES BROOKS :1945 Age:77 years Sex:Female Visit Date:11/11/2022 Primary Care Physician: Jeannine Fernandes MD Discharge Instructions We would like to thank you for allowing us to assist you with your healthcare needs. The following includes patient education materials and information regarding your injury/illness. Diagnosis from Today's Visit Urinary tract infection Hyperglycemia Discharge Vitals Temperature??(Temporal Artery) 98.6 ??F (37 ??C) Heart Rate??(Peripheral) 64 Respiratory Rate?? 18 Blood Pressure?? 155/67?? Height?? 66.14 in (168.000 cm) Weight??(Estimated) 136.71 lb (62.00 kg) Allergies azithromycin??(Skin rash) codeine??(Rapid heart beat) What to Do Next Instructions from Your Care Team Today you were found to have a urinary tract infection and it is??most likely what caused??your sugar to be??up??in the last few days.?? Please continue antibiotics??Levaquin??500 mg every 48 hours.?? You received your first dose??today, please take the next one in 48 hours and so on.?? Do this fora total of 7 days.?? Please continue??insulin and checking her glucose as usual.?? Follow-up with your primary care provider for reevaluation in a few days.?? Return to the emergency department for any new or worsening symptoms. You Need to Schedule the Following Appointments Follow Up with??Follow up with primary care provider When:??Within 2 to 4 days Upcoming Scheduled Appointments Wednesday 11:30 AM EDT ?? Where: [facility] Status: Confirmed Wednesday 11:30 AM EDT ?? Where: [facility] Status: Confirmed Wednesday 10:00 AM EDT ?? [...] When Why Instructions Next Dose New levoFLOXacin (!-Levaquin 500 mg oral tablet) 1 tab Oral (given by mouth) Every 48 hours Urinary tract infection Hyperglycemia Duration: 7 Days Pickup at [facility] Unchanged amLODIPine (amLODIPine 5 mg oral tablet) [...] for Prescription (BD UF Pen Needle Mini [id number]) See instructions DM2 (diabetes mellitus, type 2) [...] Other Prescription (BD UF MINI PEN NEEDLE [id number]) See instructions USE DIRECTED FOUR TIMES A [...] Pharmacy Information [facility]: [address] [place], [place] [id number] [phone] Education Materials Urinary Tract Infection, Adult A urinary tract infection (UTI) is an infection of any part of the urinary tract. The urinary tractincludes the kidneys, ureters, bladder, and urethra. These organs make, store, and get rid of urinein the body. An upper UTI affects the ureters and kidneys. A lower UTI affects the bladder and urethra. What are the causes? Most urinary tract infections are caused by bacteria in your genital area around your urethra, where urine leaves your body. These bacteria grow and cause inflammation of your urinary tract. What increases the risk? You are more likely to develop this condition if: ? You have a urinary catheter that stays in place. ? You are not able to control when you urinate or have a bowel movement (incontinence). ? You are female and you: ? Use a spermicide or diaphragm for control. ? Have low estrogen levels. ? Are . ? You have certain genes that increase your risk. ? You are sexually active. ? You take antibiotic medicines. ? You have a condition that causes your flow of urine to slow down, such as: ? An enlarged prostate, if you are male. ? Blockage in your urethra. ? A kidney stone. ? A nerve condition that affects your bladder control (neurogenic bladder). ? Not getting enough to drink, or not urinating often. ? You have certain medical conditions, such as: ? Diabetes. ? A weak disease-fighting system (immunesystem). ? Sickle cell disease. ? Gout. ? Spinal cord injury. What are the signs or symptoms? Symptoms of this condition include: ? Needing to urinate right away (urgency). ? Frequent urination. This may include small amounts of urine each time you urinate. ? Pain or burning with urination. ? Blood in the urine. ? Urine that smells bad or unusual. ? Trouble urinating. ? Cloudy urine. ? Vaginal discharge, if you are female. ? Pain in the abdomen or the lower back. You may also have: ? Vomiting or a decreased appetite. ? Confusion. ? Irritability or tiredness. ? A fever or chills. ? Diarrhea. The first symptom in older adults may be confusion. In some cases, they may not have any symptoms until the infection has worsened. How is this diagnosed? This condition is diagnosed based on your medical history and a physical exam. You may also have other tests, including: ? Urine tests. ? Blood tests. ? Tests for STIs (sexually transmitted infections). If you have had more than one UTI, a cystoscopy or imaging studies may be done to determine the cause of the infections. How is this treated? Treatment for this condition includes: ? Antibiotic medicine. ? Rsqw-rta-taqswui medicines to treat discomfort. ? Drinking enough water to stay hydrated. If you have frequent infections or have other conditions such as a kidney stone, you may need to see a health care provider who specializes in the urinary tract (urologist). In rare cases, urinary tract infections can cause sepsis. Sepsis is a life- threatening condition that occurs when the body responds to an infection. Sepsis is treated in the hospital with IV antibiotics, fluids, and other medicines. Follow these instructions at home: Medicines ? Take mxbs-woh-aooklrp and prescription medicines only as told by your health care provider. ? If you were prescribed an antibiotic medicine, take it as told by your health care provider. Do notstop using the antibiotic even if you start to feel better. General instructions ? Make sure you: ? Empty your bladder often and completely. Do not hold urine for long periods of time. ? Empty your bladder after sex. ? Wipe from front to back after urinating or having a bowel movement if you are female. Use each tissue only one time when you wipe. ? Drink enough fluid to keep your urine pale yellow. ? Keep all follow-up visits. This is important. Contact a health care provider if: ? Your symptoms do not get better after 1???2 days. ? Your symptoms go away and then return. Get help right away if: ? You have severe pain in your back or your lower abdomen. ? You have a fever or chills. ? You have nausea or vomiting. Summary ? A urinary tract infection (UTI) is an infection of any part of the urinary tract, which includes the kidneys, ureters, bladder, and urethra. ? Most urinary tract infections are caused by bacteria in your genital area. ? Treatment for this condition often includes antibiotic medicines. ? If you were prescribed an antibiotic medicine, take it as told by your health care provider. Do notstop using the antibiotic even if you start to feel better. ? Keep all follow-up visits. This is important. This information is not intended to replace advice given to you by your health care provider. Make sure you discuss any questions you have with your health care provider. Document Revised: 01/03/2021 Document Reviewed: 01/03/2021 [employer] Patient Education ?? 2021 [employer] Tests Performed Lab Test Name Test Result Date/Time WBC 7.4 x10^3/mcL 11/11/2022 12:13 EDT RBC 3.4 x10^6/mcL 11/11/2022 12:13 EDT Hgb 10.9 g/dL 11/11/2022 12:13 EDT Hct 32.5 % 11/11/2022 12:13 EDT MCV 94.8 fL 11/11/2022 12:13 EDT MCH 31.8 pg 11/11/2022 12:13 EDT MCHC 33.5 g/dL 11/11/2022 12:13 EDT RDW-CV 14.9 % 11/11/2022 12:13 EDT Platelets 150 x10^3/mcL 11/11/2022 12:13 EDT Neutro Auto 70.9 % 11/11/2022 12:13 EDT Lymph Auto 14.7 % 11/11/2022 12:13 EDT Henderson Auto 8.9 % 11/11/2022 12:13 EDT Eos, Auto 4.3 % 11/11/2022 12:13 EDT Basophil Auto 0.8 % 11/11/2022 12:13 EDT Imm Gran Auto 0.4 % 11/11/2022 12:13 EDT Neutro Absolute 5.2 x10^3/mcL 11/11/2022 12:13 EDT Sodium Level 135 mmol/L 11/11/2022 12:13 EDT Potassium Level 3.8 mmol/L 11/11/2022 12:13 EDT Chloride Level 99 mmol/L 11/11/2022 12:13 EDT CO2 29 mmol/L 11/11/2022 12:13 EDT Alk Phos 104 unit/L 11/11/2022 12:13 EDT AST 16 unit/L 11/11/2022 12:13 EDT ALT 14 unit/L 11/11/2022 12:13 EDT BUN 37 mg/dL 11/11/2022 12:13 EDT Glucose Level 275 mg/dL 11/11/2022 12:13 EDT Creatinine Level 3.14 mg/dL 11/11/2022 12:13 EDT eGFR AA 15 11/11/2022 12:13 EDT eGFR Non-AA 15 11/11/2022 12:13 EDT Calcium Level 13.0 mg/dL 11/11/2022 12:13 EDT Protein Total 7.2 g/dL 11/11/2022 12:13 EDT Albumin Level 3.0 g/dL 11/11/2022 12:13 EDT Bilirubin Total 0.5 mg/dL 11/11/2022 12:13 EDT Glucose POC 248 mg/dL 11/11/2022 10:53 EDT UA Color YELLOW. 11/11/2022 12:43 EDT UA Appear CLOUDY. 11/11/2022 12:43 EDT UA Glucose 1+ 11/11/2022 12:43 EDT UA Bili NEGATIVE 11/11/2022 12:43 EDT UA Ketones TRACE. 11/11/2022 12:43 EDT UA Spec Grav >=1.030 11/11/2022 12:43 EDT UA Blood TRACE. 11/11/2022 12:43 EDT UA pH 5.5 11/11/2022 12:43 EDT UA Protein 2+ 11/11/2022 12:43 EDT UA Urobilinogen 0.2 Uro 11/11/2022 12:43 EDT UA Nitrite NEGATIVE 11/11/2022 12:43 EDT UA Leuk Est TRACE. 11/11/2022 12:43 EDT UA Culture Ind?. Indicated 11/11/2022 12:43 EDT UA WBC 3-5 11/11/2022 12:43 EDT UA RBC 0-2 11/11/2022 12:43 EDT UA Squam Epithelial Many 11/11/2022 12:43 EDT UA Mucous Few 11/11/2022 12:43 EDT UA Bacteria Moderate 11/11/2022 12:43 EDT UA Amorph Rare 11/11/2022 12:43 EDT UA Hyal Cast Rare 11/11/2022 12:43 EDT UA Ca Ox Crystal Few 11/11/2022 12:43 EDT Patient/Blower Operator Signature Patient Name:MARIA INES BROOKS I have received this information and my questions have been answered. Patient/Blower Operator Name: Patient/Blower Operator Signature: Relationship to Patient: Witness Name/Signature: Date: Electronically Signed on: 11/11/2022 13:26 EDTSigned by:[facility] Emergency department Note * Clarice Rondon: PERFORM Event Display: ED Notes Authored Date: [id number] Patient Care team information Care Team Personnel Name: Jeannine Fernandes MD Position: Physician Member Role: Informed Provider Address: Address: [address] Name: Nithin Bellamy COMPENSATION AND BENEFITS ANALYST Position: Physician Member Role: Nurse Practitioner Address: Address: [address] [address]- [place] Name: Noreen York Position: Ambulatory - RN/PEG DRIVER (Sanjay) Member Role: Neck Fitter Name: Grupo Walters COMPENSATION AND BENEFITS ANALYST Position: Physician Member Role: Nurse Practitioner Name: Nayana Wheatley MD Position: Physician Member Role: ED Physician Address: Address: [address] [place] [address] Name: Hermila You Position: Nurse Member Role: ED Nurse Care Team Related Persons Name: MADY, ROMAN SPANN Address: [place] [address] Address: [address] [phone] Name: ROMAN EARL Address: [place] [address] Address: [address] [phone]
[2022-12-19 08:52] LABS: HCT 26.9 % (36.0-46.0); HGB 8.5 g/dL (11.2-15.7)
[2022-12-19 09:00] LABS: Iron 32 ug/dL (50-170); Total Iron Binding Capacity 229 ug/dL (250-450); Transferrin Sat 14 % (15-50)
[2022-12-19 09:01] LABS: Anion Gap 8.8 mmol/L (3-11); BUN 45 mg/dL (7-18); CO2 28.2 mmol/L (21.0-32.0); CREATININE 2.3 mg/dL (0.55-1.02); Calcium 9.7 mg/dL (8.5-10.1); Calculated LDL 94 mg/dL (<100); Chloride 107 mmol/L (98-107); Cholesterol 163 mg/dL (<200); Estimated GFR 21.22 (mL/min/1.73m2); Glucose 56 mg/dL (74-106); HDL Cholesterol 57 mg/dL (40-60); Potassium 3.9 mmol/L (3.5-5.1); Sodium 144 mmol/L (136-145); Triglyceride 62 mg/dL (<150)
[2022-12-19 09:10] LABS: Hemoglobin A1C 8.5 % (<5.7)
== END 2022-12-19 08:30 | disposition home or self-care (01) ==
LOC: LBN 08:29
PROVIDERS: PCP Internal Medicine; Visit Provider Physician Assistant
DX: E11.9 Type 2 diabetes mellitus without complications (principal); I10 Essential (primary) hypertension; E78.5 Hyperlipidemia, unspecified
CPT/HCPCS: 80048; 80061; 83036; 83540; 83550; 85014; 85018

== ENCOUNTER 2023-02-04 13:33 | Outpatient (CLI) | payer MEDICARE, MEDICAID, SELFPAY | END 2023-02-04 13:34 | disposition home or self-care (01) | LOC: DI.CARD 13:34 | PROVIDERS: PCP Family Medicine; Visit Provider Internal Medicine Cardiovascular Disease | DX: Z13.6 Encounter for screening for cardiovascular disorders (principal) | CPT/HCPCS: 93010 ==

== ENCOUNTER 2023-02-05 13:26 | Observation (INO) | payer MEDICARE, MEDICAID, SELFPAY ==
[2023-02-05] VITALS (36 sets, daily range): BP systolic 142–178; BP diastolic 67–89; PULSE 70–150; RESP 14–25; TEMP 36.8; O2SAT 95–99
--- NOTE | 2023-02-05 13:00 | RT.EKG_ITS ---
APPROVED REPORT Exam: Resting ECG Reason for Exam: Chest pain Patient Location: E HR:154 bpm ECG Measurements Heart Rate 154 AXIS [place] [id number] P 0 QRSd 97 QRS 4 QT 323 T 160 QTc 516 Conclusion Supraventricular tachycardia...V-rate>(220-age), QRSd<120 LVH with secondary repolarization abnormality...multi-LVH criteria, abnrm ST-T
--- NOTE | 2023-02-05 13:13 | ED.GENADUL_ITS ---
Discharge Plan Discharge Details Chief Complaint: Chest Pain Primary Care Provider: Pilar Rogers ED Provider: Wyatt Castillo Home Meds and New Rx's Prescriptions: No Action acetaminophen [Tylenol Extra Strength] 500 mg tablet 1,000 mg PO TID PRN ascorbic acid (vitamin C) 500 mg capsule PO aspirin [Adult Aspirin Regimen] 81 mg tablet,delayed release (DR/EC) 81 mg PO DAILY atorvastatin 40 mg tablet 40 mg PO DAILY ferrous gluconate 240 mg (27 mg iron) tablet 240 mg PO DAILY insulin lispro [Humalog KwikPen Insulin] 100 unit/mL insulin pen 1 sliding scale dose subcut USEASDIRECTD melatonin 3 mg capsule 3 mg PO HS PRN memantine 10 mg tablet 10 mg PO QPM polyethylene glycol 3350 17 gram/dose powder 17 g PO DAILY nitroglycerin [Nitrostat] 0.4 mg tablet, sublingual 0.4 mg sublingual Q5M PRN Rx Instructions: do not exceed 3 doses per episode pantoprazole [Protonix] 40 mg tablet,delayed release (DR/EC) 40 mg PO DAILY riboflavin (vitamin B2) 100 mg tablet 100 mg PO BID venlafaxine 150 mg capsule,extended release 24hr 150 mg PO DAILY docusate sodium [Colace] 100 mg capsule 100 mg PO BID PRN folic acid 1 mg tablet 1,000 mcg PO DAILY Levemir U-100 Insulin 100 unit/mL solution 15 unit subcut QHS magnesium oxide 400 mg magnesium capsule 400 mg PO BID oxybutynin chloride 5 mg tablet 5 mg PO BID PRN Medical Decision Making Patient presenting to the emergency department via EMS for chief complaint of chest pain. She states that she woke up this morning not feeling well. Around 930 this morning she started having some chest pain. She took a nitro that she is prescribed which did help her chest pain resolved but then the pain came back about an hour or so later. She does state some radiating of pain down left arm and into her back. Patient otherwise denies any fever chills, acute respiratory symptoms, nausea vomiting diarrhea belly pain. Physical exam shows significant tachycardia grade 4 murmur with radiation into the neck which patient states is normal for her. Exam is otherwise unremarkable. Patient does state that chest pain has resolved. We will plan on chest pain work-up including labs and CT imaging but will hold off ordering CT until renal function is returned given that patient has history of CKD with staging of 4. Patient also has history of diabetes, renal mass, aortic stenosis, hypertension and hyperlipidemia. Please see physician interpretation for full interpretation of EKG but upon my review patient is in SVT with rate of 154. Of note while reviewing EKG and watching patient on monitor she converted back to sinus rhythm with rate right around 100. Second EKG was performed and please see physician interpretation of this EKG. Patient was noted to be hypertensive on arrival so 2.5 mg of metoprolol was given as patient had 3 episodes of SVT lasting 30 seconds to 1 minute. Reviewed patient's labs and patient does have anemia with hemoglobin of 8.7 which is at her baseline from labs done in December. CBC is otherwise unremarkable. CMP does show slightly elevated anion gap at 11.2, elevated BUN and creatinine with a GFR of 21 which is at patient's baseline, glucose was noted to be at 60 so we will recheck with fingerstick and treat with oral intake. CMP is otherwise nondiagnostic, initial troponin is slightly elevated at 70. BNP also elevated at 3888 no previous BNP available for review. Continue to monitor patient and noted that heart rate significantly improved and no further episodes of SVT after the initial IV 2.5 mg metoprolol. We will give 12.5mg controlled release metoprolol to continue to control heart rate pending repeat troponin and Noncon CT imaging. Also noted was patient's repeat glucose via fingerstick was 75. CT imaging showed floor and cardiac effusions along with some bilateral upper lobe lung nodules. Concern for possible infection but I think more likely is possible metastatic disease. Patient denies any known history of this. We will repeat troponin and suspect cardiology consult with need of admission. Given effusions will give 20 mg Lasix. Patient does not have any further pain or discomfort. Patient signed out pending cardiology consult and suspected admission. Lab Data Lab results reviewed: Yes I reviewed the patient's lab results. HPI General Mode of arrival: EMS . Date/Time Provider Initiated Documentation: 02/05/23 13:35 . Limitations to Documentation: no limitations . Information obtained by: patient, EMS and RN notes reviewed . History of Present Illness 77 year old F presents to the emergency department with the chief complaint of Chest pain, described as mild and moderate, Quality is described as aching, and is localized to the chest. Patient reports radiation to back and extremity. Patient started experiencing this hour(s) (3) and it has been intermittent. Medication improves symptom(s), No exacerbating factors reported . Patient did receive the following treatments prior to arrival, Aspirin (324mg) Related Data Home Medications Medication Instructions Recorded Confirmed acetaminophen 500 mg tablet 1,000 mg PO TID PRN 01/13/23 (Tylenol Extra Strength) ascorbic acid (vitamin C) 500 mg mg PO 01/13/23 capsule aspirin 81 mg tablet,delayed 81 mg PO DAILY 01/13/23 release (Adult Aspirin Regimen) atorvastatin 40 mg tablet 40 mg PO DAILY 01/13/23 ferrous gluconate 240 mg (27 mg 240 mg PO DAILY 01/13/23 iron) tablet insulin lispro 100 unit/mL 1 sliding scale dose subcut 01/13/23 subcutaneous pen (Humalog KwikPen USEASDIRECTD (U-100) Insulin) melatonin 3 mg capsule 3 mg PO HS PRN 01/13/23 memantine 10 mg tablet 10 mg PO QPM 01/13/23 nitroglycerin 0.4 mg sublingual 0.4 mg sublingual Q5M PRN 01/13/23 tablet (Nitrostat) pantoprazole 40 mg tablet,delayed 40 mg PO DAILY 01/13/23 release (Protonix) polyethylene glycol 3350 17 17 g PO DAILY 01/13/23 gram/dose oral powder riboflavin (vitamin B2) 100 mg 100 mg PO BID 01/13/23 tablet venlafaxine 150 mg 150 mg PO DAILY 01/13/23 capsule,extended release 24 hr docusate sodium 100 mg capsule 100 mg PO BID PRN 01/19/23 (Colace) folic acid 1 mg tablet 1,000 mcg PO DAILY 01/19/23 insulin detemir U-100 100 unit/mL 15 unit subcut QHS 01/19/23 subcutaneous solution (Levemir U-100 Insulin) magnesium oxide 400 mg PO BID 01/19/23 oxybutynin chloride 5 mg tablet 5 mg PO BID PRN 01/19/23 Allergies Allergy/AdvReac Type Severity Reaction Status Date / Time azithromycin Allergy Unknown Verified 01/26/23 14:56 codeine Allergy Unknown Verified 01/26/23 14:56 General Stated Complaint: Chest Pain RENA: 2 Review of Systems Constitutional Constitutional: Denies chills, Denies fever(s) and Denies malaise Cardiovascular Cardiovascular: Reports as per HPI, Reports chest pain, Denies chest pain with activity, Denies syncope, Denies irregular heart rhythm, Denies leg edema, Denies palpitations and Reports dyspnea Respiratory Respiratory: Denies cough, Denies hemoptysis and Reports dyspnea Gastrointestinal Gastrointestinal: Denies abdominal pain, Denies nausea and Denies vomiting Neurologic Neurologic: Denies syncope Psychiatric Psychiatric: Denies anxiety Endocrine Endocrine: Denies palpitations PFSH All Active Problems Diabetes mellitus (Chronic) Renal mass (Acute) Obesity (Chronic) Aortic stenosis (Chronic) GERD (gastroesophageal reflux disease) (Chronic) Chronic kidney disease, stage 4 (severe) (Acute) Hyperlipidemia (Acute) HTN (hypertension) with goal to be determined (Acute) Medical History Anemia due to CKD Anxiety Depressed GI bleed Major depressive disorder Muscle weakness Osteoarthritis Other abnormalities of gait and mobility PTSD (post-traumatic stress disorder) Type 2 diabetes mellitus Social History Smoking/Tobacco Use Status: Never Smoking risk assessment performed?: Yes Alcohol Intake: never Drug use: Never Substance use type: does not use Housing: apartment Do you feel safe at home: Yes Do you feel safe in your relationship?: Yes Exam Const General: cooperative, healthy appearing, comfortable, no acute distress, not diaphoretic and not ill appearing Nutritional Appearance: average body habitus Orientation: alert, awake and oriented x3 Limitations: mental status not altered Neck Neck: normal visual inspection, full ROM, trachea midline, supple and no anterior neck swelling Thyroid: thyroid normal Carotids: normal carotid upstroke and no bruits Chest Chest: normal inspection of the chest Resp Effort & Inspection: normal respiratory effort and able to speak in complete sentences Auscultation: clear to auscultation bilaterally Cardio Jugular venous pressure: no JVD Palpation: normal PMI Rate: regular rate Rhythm: regular rhythm Heart Sounds: S1 normal, S2 normal, no click, no gallops, murmur systolic IV/, with radiation to the carotids and at the right sternal border and no rubs Bruits: no abdominal aortic bruits and no carotid bruits Pulses: radial pulses present bilaterally 2+ Skin General skin exam: no rashes or lesions noted Neuro General: patient alert, patient awake, patient oriented x3, tone normal and moves all extremities Sign Out Sign Out Data: Sign Out Comment: Patient pending repeat troponin, cardiology consult, and hospitalist consult for admission for chest pain, SVT, cardiac and pleural effusion Last updated by Wyatt Castillo NP at 02/05/23 15:51
--- NOTE | 2023-02-05 13:15 | RT.EKG_ITS ---
APPROVED REPORT Exam: Resting ECG Reason for Exam: Tachycardia Patient Location: E HR:96 bpm ECG Measurements Heart Rate 96 AXIS [place] 142 P 46 QRSd 100 QRS -10 QT 361 T 117 QTc 457 Conclusion Sinus rhythm...normal P axis, V-rate 60- 99 LVH with secondary repolarization abnormality...multi-LVH criteria, abnrm ST-T
[2023-02-05] MEDS: Metoprolol 5 MG/5 ML VIAL 2.5 MG IVP (13:43)
[2023-02-05 13:47] LABS: Abs Immature Grans 0.02 10^3/uL (0.0-0.06); Absolute Basophil Count 0.09 10^3/uL (0.0-0.2); Absolute Lymphocyte Count 1.45 10^3/uL (1.2-3.4); Absolute Monocyte Count 0.51 10^3/uL (0.1-0.8); Absolute Neutrophil Count 4.27 10^3/uL (1.2-6.7); Basophils % 1.3; Eosinophils % 5.9; HGB 8.7 g/dL (11.2-15.7); Immature Grans % 0.3; Lymphocytes % 21.5; MCHC 31.1 % (32.0-36.0); MCV 93 fL (80-95); MPV 10.3 fL (8.0-11.0); Monocytes % 7.6; Neutrophils % 63.4; Platelet Count 397 10^3/uL (130-400); RDW-SD 47.6 fL; WBC 6.74 10^3/uL (4.4-10.8)
[2023-02-05 14:10] LABS: ALT 6 U/L (14-59); AST 16 U/L (15-37); Albumin 2.7 g/dL (3.4-5.0); Alkaline Phosphatase 97 U/L (46-116); Anion Gap 11.2 mmol/L (3-11); BUN 41 mg/dL (7-18); Bilirubin, Total 0.2 mg/dL (0.2-1.0); CO2 28.8 mmol/L (21.0-32.0); CREATININE 2.3 mg/dL (0.55-1.02); Calcium 9.9 mg/dL (8.5-10.1); Chloride 102 mmol/L (98-107); Estimated GFR 21.22 (mL/min/1.73m2); Glucose 60 mg/dL (74-106); Magnesium 2.2 mg/dL (1.8-2.4); NT-proBNP 3888 pg/mL (<300); Potassium 3.7 mmol/L (3.5-5.1); Sodium 142 mmol/L (136-145); Total Protein 7.6 g/dL (6.4-8.2)
[2023-02-05 14:15] LABS: Troponin I 70 ng/L (<or=60)
--- NOTE | 2023-02-05 14:15 | DI.CT_ITS ---
Exam(s) CT CHEST/ABD/PEL WO EXAM: CT CHEST/ABD/PEL WO CLINICAL HISTORY: Chest pain with radiation to back. TECHNIQUE: Imaging Protocol: Axial computed tomography images with coronal and sagittal reformatted images were created and reviewed CONTRAST MATERIAL: Intravenous: Omnipaque 350 Contrast volume:100 ml Oral: / no COMPARISON: CT CT CHEST/ABD/PELVIS W/O CONT-M2 from 02/03/2019 CT,PT NM PET SCAN:EYES TO THIGHS-INI from 03/11/2019 FINDINGS: CHEST: There is now a moderate-sized left pleural effusion. There is also a pericardial effusion measuring 15 millimeters in thickness. There is mild left atrial enlargement. There is prominent mitral valve calcification as well as aortic valve calcification versus prosthesis.. Mild coronary artery calcif ications. Mild calcification in the thoracic aorta which is normal in diameter. New opacities in the left upper lobe. Area of scarring near the upper left hilum. New area mass or consolidation in the posteromedial right upper lobe. Multiple small densities noted in the superior right lower lobe. Marked thoracic kyphosis again noted. Degenerative disc changes. No compression fractures. ABDOMEN: Liver: Normal density. No measurable mass. Gallbladder and biliary tract: Status post cholecystectomy. No radiodense calculus or dilation. Pancreas: Atrophic. No abnormal calcifications or inflammatory process. Spleen: Normal. Kidneys: Normal size, contour and axis. No radiodense stones or obstructive uropathy. Right renal cy st again noted. Further follow-up recommended. No suspicious masses seen. Adrenal glands: No masses seen. Aorta: Abdominal portion non-dilated. Lymph nodes: Within normal limits. Soft tissues: Midline hernia repair mesh again noted. No recurrence hernias. PELVIS: Bladder: Symmetric distention, no gross wall thickening. Bowel: Moderate to increased quantity of stool. No obstruction or bowel wall thickening. Peritoneal cavity: No ascites, collection or mesenteric inflammatory response. Bones: Unremarkable for age.. Reproductive organs: Status post hysterectomy. IMPRESSION: Chest: Moderate size left pleural effusion. Moderate pericardial effusion. Bilateral upper lobe lobe opacities could represent an infectious or neoplastic processes. No acute abnormality in the abdomen pelvis. Findings called to Wyatt Castillo of the emergency department. RADIATION DOSE DELIVERED: 1,039.2mGy.cm Total DLP DATA REPOSITORY: All CT scans at this facility are submitted to the National Radiology Data Registry (NRDR) Dose Index Registry (DIR) with the [employer] (ACR). RADIATION OPTIMIZATION: All CT scans at this facility use at least one of these dose optimization te chniques: automated exposure control; mA and/or kV adjustment per patient size (includes targeted exa ms where dose is matched to clinical indication); or iterative reconstruction.
[2023-02-05] MEDS: Furosemide 20 MG/2 ML VIAL IVP (15:32)
[2023-02-05] MEDS: Metoprolol CR 25 MG TABCR 12.5 MG PO (15:32)
--- NOTE | 2023-02-05 16:03 | ED.PROG_ITS ---
Date of service: 02/05/23 Time of Service: 20:00 Medical Decision Making Spoken with the make up artist determined with Dr. Syed Norton. He recommended that the patient be admitted for observation. He advised to have an echo while when it is available. He also advised that hospitalist call him for further questions. I spoke with the hospitalist who has agreed to admit the patient. Medical Records Medical records reviewed: Yes I reviewed the patient's medical records. Lab Data Lab results reviewed: Yes I reviewed the patient's lab results. Lab results narrative: Anemia Narrative I have received signout and have seen and examined the patient. We have reviewed the CT findings. We are awaiting the second troponin. I will then consult cardiology at [facility]. I anticipate that the patient will be admitted for work-up of her supraventricular tachycardia, chest pain lung nodules and pericardial and pleural effusions. The patient voiced understanding agreement with our plan. Critical Care Time Critical Care Time Critical Care Time: Yes Total Critical Care Time: 47 Attestation: This includes time at bedside, review of the patient's old records from here as well as from [facility]. This also includes review of blood and lab work and radiographs, as well as consultations with gastroenterology and hospitalist Sign Out Sign Out Data: Sign Out Comment: Patient pending repeat troponin, cardiology consult, and hospitalist consult for admission for chest pain, SVT, cardiac and pleural effusion Last updated by Wyatt Castillo, PUNCH MACHINE OPERATOR at 02/05/23 15:51 Discharge Plan Disposition Patient Disposition: Admit to [facility] Condition: Good Discharge Details Chief Complaint: Chest Pain Clinical Impression: Narrow complex tachycardia, Chronic kidney disease, stage 4 (severe), HTN (hypertension) with goal to be determined, Aortic stenosis, GERD (gastroesophageal reflux disease) Admit Date/Time: 02/05/23 18:05 Admit Provider: Robyn Chowdhury Attending Provider: Robyn Chowdhury Primary Care Provider: Pilar Rogers ED Provider: Emelyn Camacho Discharge Data Discharge Physician: Emelyn Camacho
[2023-02-05 16:05] LABS: COVID-19 PCR Negative (Negative); Influenza A PCR Negative (Negative); Influenza B PCR Negative (Negative); RSV PCR Negative (Negative)
[2023-02-05 16:13] LABS: Source Nasopharynx
[2023-02-05 16:37] LABS: Troponin I 69 ng/L (<or=60)
[2023-02-05 18:45] LABS: Procalcitonin 0.1 ng/mL
[2023-02-05 19:28] LABS: Lab Add On Test DONE
[2023-02-05 19:57] LABS: FREE T4 0.93 ng/dL (0.76-1.46); TSH 2.77 uIU/mL (0.36-3.74)
--- NOTE | 2023-02-05 20:52 | W.PM.HP.N ---
Date of service: 02/05/23 Time of Service: 20:52 Assessment and Plan Assessment and plan (1) Narrow complex tachycardia: Status: Acute Assessment and plan: Initial EKG showing regular narrow tachycardia in 150s consistent with SVT vs Aflutter. Caffeine containing medication (excedrin) as well as withdrawal of propranolol may have set her up for this. This resolved after metoprolol in the ED and she is now in sinus rhythm. Case reviewed with [facility] cardiology (see ED addendum) and recommended admission here, no comment documented on question of aflutter, which would need anticoagulation. Will continue metoprolol orally. EKG not normal but not c/w STEMI. Troponin elevated mildly, but with no significant changes x 3 this is not c/w acute coronary syndrome. She isn't sure of CAD history (states her daughter told her she had a heart attack) but she is on ASA and high intensity statin so will continue these. (2) Pericardial effusion: Status: Acute Assessment and plan: This is new. With lung mass and effusion, concern for malignant. No signs of tamponade clinically but we need echocardiogram when we can get it. (3) Diabetes mellitus: Status: Chronic Assessment and plan: A1c 8.5% in December, around 8% reasonable given clinical picture. Initial glucose was low but she wasn't eating and now she is. Monitor on basal detemir and low dose sliding scale. (4) Mass of right lung: Status: Acute Assessment and plan: Concern for malignancy. She is not showing signs of infection, procalcitonin low. With the effusion, may consider pleurocentesis with cytology. (5) Aortic stenosis: Status: Chronic Assessment and plan: This is chronic, though I don't have the last echocardiogram. I don't think this is a major part of her presentation given her symptoms resolved after the tachycardia resolved. Echocardiogram and cardiology consult pending. (6) Chronic kidney disease, stage 4 (severe): Status: Acute Assessment and plan: Stable at her baseline. Continue to monitor. (7) Post herpetic neuralgia: Status: Acute Assessment and plan: Will avoid excedrin. Try gabapentin along with APAP. (8) Anemia: Assessment and plan: secondary to CKD, but also low iron. continue suppument. H/o GI bleed noted, but H/H stable from December . She is on PPI chronically. (9) DVT prophylaxis: Status: Acute Assessment and plan: Heparin TID (10) Discharge planning issues: Status: Acute Assessment and plan: She will need to stay until Wednesday for echocardiogram to assess the pericardial effusion and valve function. She is being monitored on telemetry. History of Present Illness History of Present Illness Chief Complaint: chest pain, palpitaitons Narrative: 77 yo F with history of aortic stenosis, stage 4 CKD, type 2 diabetes, and some cognitive impairment who presented to the emergency room sent from [facility] for chest pain. She states her pain started when she woke up at 8am the day prior to admission. She had pressure in her chest and heart racing. She felt naueaous and did not want to eat. This lasted for about 30 minutes. She states she had the pain off and on and felt tired all day. She states today around 1 pm she had the pain again. Pressure pain, moderate to severe, radiating to left shoulder and down her arm. The pain is associated with SOB, diaphoresis, nausea, and lightheadedness. She states she was given nitroglycerin and aspirin by EMS and this made her pain go away. She feels better now with no chest pain and she finally feels like eating. Of note, she is being treated for dementia with memantine, and the history above differs from the history on the ED note, in which the pain is described as starting today at around 9:30am. Taryn also mentions she has had a rash on the top of her scalp and migraines for the past 3 weeks. She was seen by Dr. Cosme who told her it was shingles. She has been taking excedrin twice a day for the past couple weeks. She also states that in October her propranolol, which she was taking for essential tremor, was stopped due to low pulse. Of notes she states she moved into the SNF 2 month ago after recurrent falls. Review of Systems Constitutional Constitutional: Denies chills, Reports fatigue, Reports fever(s) (has felt feverish in her head since the shingles started), Reports headache(s), Reports lethargy and Reports malaise Eyes Eyes: Denies change in vision, Denies irritation and Denies eye pain ENT Ears, Nose, Mouth, and Throat: Reports headache(s), Denies nasal congestion, Denies nasal discharge and Denies sore throat Cardiovascular Cardiovascular: Reports as per HPI, Denies pedal edema and Denies orthopnea Respiratory Respiratory: Denies cough, Denies hemoptysis, Denies excessive phlegm production and Denies wheezing Gastrointestinal Gastrointestinal: Denies abdominal pain, Denies heartburn, Denies diarrhea and Denies vomiting Genitourinary Genitourinary: Denies hematuria, Denies dysuria and Reports urinary incontinence (chronic) Integumentary/Breasts Skin/Breast: Reports rash and Denies skin ulcer Neurologic Neurologic: Denies abnormal speech, Reports headache(s), Denies localized weakness, Reports memory loss (chronic), Denies sensory deficit and Reports tremor(s) (chronic) Psychiatric Psychiatric: Denies depression, Reports memory loss (chronic) and Denies mood swings Endocrine Endocrine: Reports fatigue Hematologic/Lymphatic Hematologic/Lymphatic: Denies easy bleeding Allergic/Immunologic Allergic/Immunologic: Denies wheezing PFSH All Active Problems (Updated 02/05/23 @ 21:36 by Josemanuel Humphreys) Pericardial effusion (Acute) Discharge planning issues (Acute) DVT prophylaxis (Acute) Post herpetic neuralgia (Acute) Mass of right lung (Acute) Narrow complex tachycardia (Acute) Diabetes mellitus (Chronic) Renal mass (Acute) Aortic stenosis (Chronic) GERD (gastroesophageal reflux disease) (Chronic) Chronic kidney disease, stage 4 (severe) (Acute) Hyperlipidemia (Acute) HTN (hypertension) with goal to be determined (Acute) Medical History (Updated 02/05/23 @ 21:36 by Josemanuel Humphreys) Anemia due to CKD Anxiety Depressed GI bleed Major depressive disorder Muscle weakness Osteoarthritis Other abnormalities of gait and mobility PTSD (post-traumatic stress disorder) Type 2 diabetes mellitus Surgical History (Updated 02/05/23 @ 21:18 by Josemanuel Humphreys) S/P cholecystectomy S/P hysterectomy Family History (Updated 02/05/23 @ 21:20 by Josemanuel Humphreys) Mother , age 69, also had aortic valve replacement Heart disease Social History (Updated 02/05/23 @ 21:21 by Josemanuel Humphreys) Smoking/Tobacco Use Status: Never Smoking risk assessment performed?: Yes Alcohol Intake: never Drug use: Never Substance use type: does not use Housing: apartment Do you feel safe at home: Yes Do you feel safe in your relationship?: Yes Additional Social history: Living at [facility] after living in [facility] for many years Has 4 sons and one daughter. Meds Allergies and Home Medications Allergies Allergy/AdvReac Type Severity Reaction Status Date / Time azithromycin Allergy Unknown Verified 01/26/23 14:56 codeine Allergy Unknown Verified 01/26/23 14:56 Home Medications Medication Instructions Recorded Confirmed Type acetaminophen 500 mg tablet 1,000 mg PO TID PRN 01/13/23 History (Tylenol Extra Strength) ascorbic acid (vitamin C) 500 mg mg PO 01/13/23 History capsule aspirin 81 mg tablet,delayed 81 mg PO DAILY 01/13/23 History release (Adult Aspirin Regimen) atorvastatin 40 mg tablet 40 mg PO DAILY 01/13/23 History ferrous gluconate 240 mg (27 mg 240 mg PO DAILY 01/13/23 History iron) tablet insulin lispro 100 unit/mL 1 sliding scale dose subcut 01/13/23 History subcutaneous pen (Humalog KwikPen USEASDIRECTD (U-100) Insulin) melatonin 3 mg capsule 3 mg PO HS PRN 01/13/23 History memantine 10 mg tablet 10 mg PO QPM 01/13/23 History nitroglycerin 0.4 mg sublingual 0.4 mg sublingual Q5M PRN 01/13/23 History tablet (Nitrostat) pantoprazole 40 mg tablet,delayed 40 mg PO DAILY 01/13/23 History release (Protonix) polyethylene glycol 3350 17 17 g PO DAILY 01/13/23 History gram/dose oral powder riboflavin (vitamin B2) 100 mg 100 mg PO BID 01/13/23 History tablet venlafaxine 150 mg 150 mg PO DAILY 01/13/23 History capsule,extended release 24 hr docusate sodium 100 mg capsule 100 mg PO BID PRN 01/19/23 History (Colace) folic acid 1 mg tablet 1,000 mcg PO DAILY 01/19/23 History insulin detemir U-100 100 unit/mL 15 unit subcut QHS 01/19/23 History subcutaneous solution (Levemir U-100 Insulin) magnesium oxide 400 mg PO BID 01/19/23 History oxybutynin chloride 5 mg tablet 5 mg PO BID PRN 01/19/23 History Exam Narrative Exam Narrative: GEN: Alert and oriented x 3 but not perfect (President [place]), pleasant and cooperative, gives linear history but some conflicting history and not very detailed. No acute distress at rest. HEENT: Head atraumatic. Conjunctiva clear, no icterus. PEERL, EOMI. no rhinorrhea. MMM, OP benign. Neck is supple with no masses or lymphadenopathy, trachea midline LUNGS: CTAB with normal effort, deminished left base but no rales CV: RRR with 3/6 systolic murmur to neck. no gallops, or rubs. Coratid pulses 2+ itzel. No JVP elevation. ABD: +BS, soft, NT/ND EXT: no cyanosis, clubbing, or edema. Legs are non-tender MSK: No joint redness or swelling NEURO: CN 2-12 grossly intact. Normal movement of 4 extremities. Normal speech and coordination SKIN: No open wounds. she does have a 3mm scab on left forehead and nasal ala. I couldn't find scalp lesions. She has one similar scab on right side as well. Some bruising on shins. PSYCH: normal mood and affect Results Imaging CT scan - chest: report reviewed ( Chest: Moderate size left pleural effusion. Moderate pericardial effusion. Bilateral upper lobe lobe opacities could represent an infectious or neoplastic processes. No acute abnormality in the abdomen pelvis.) EKG: report reviewed and image reviewed Labs 02/05/23 13:36 02/05/23 13:36 Labs: Laboratory Results - last 24 hr 02/05/23 02/05/23 02/05/23 13:36 13:36 13:36 WBC 6.74 RBC 3.00 L Hgb 8.7 L Hct 28.0 L MCV 93 MCH 29.0 MCHC 31.1 L RDW 14.0 Plt Count 397 MPV 10.3 Immature Gran % 0.3 Neutrophils % 63.4 Lymphocytes % 21.5 Monocytes % 7.6 Eosinophils % 5.9 Basophils % 1.3 Nucleated RBC % 0.0 Absolute Neutrophils 4.27 Absolute Lymphocytes 1.45 Absolute Monocytes 0.51 Absolute Eosinophils 0.40 Absolute Basophils 0.09 Sodium 142 Potassium 3.7 Chloride 102 Carbon Dioxide 28.8 Anion Gap 11.2 H BUN 41 H Creatinine 2.3 H Est GFR (CKD-EPI 2020) 21.22 Glucose 60 L Calcium 9.9 Magnesium 2.2 Total Bilirubin 0.2 AST 16 ALT 6 L Alkaline Phosphatase 97 Troponin I 70 H* NT-Pro-B Natriuret Pep 3888 H Total Protein 7.6 Albumin 2.7 L Procalcitonin 0.1 TSH Free T4 COVID-19 Source SARS-CoV-2 (PCR) Influenza Type A (PCR) Influenza Type B (PCR) RSV (PCR) Add-On Test Request 02/05/23 02/05/23 02/05/23 15:22 16:12 16:12 WBC RBC Hgb Hct MCV MCH MCHC RDW Plt Count MPV Immature Gran % Neutrophils % Lymphocytes % Monocytes % Eosinophils % Basophils % Nucleated RBC % Absolute Neutrophils Absolute Lymphocytes Absolute Monocytes Absolute Eosinophils Absolute Basophils Sodium Potassium Chloride Carbon Dioxide Anion Gap BUN Creatinine Est GFR (CKD-EPI 2020) Glucose Calcium Magnesium Total Bilirubin AST ALT Alkaline Phosphatase Troponin I 69 H* NT-Pro-B Natriuret Pep Total Protein Albumin Procalcitonin TSH Free T4 COVID-19 Source Nasopharynx SARS-CoV-2 (PCR) Negative Influenza Type A (PCR) Negative Influenza Type B (PCR) Negative RSV (PCR) Negative Add-On Test Request DONE 02/05/23 16:12 WBC RBC Hgb Hct MCV MCH MCHC RDW Plt Count MPV Immature Gran % Neutrophils % Lymphocytes % Monocytes % Eosinophils % Basophils % Nucleated RBC % Absolute Neutrophils Absolute Lymphocytes Absolute Monocytes Absolute Eosinophils Absolute Basophils Sodium Potassium Chloride Carbon Dioxide Anion Gap BUN Creatinine Est GFR (CKD-EPI 2020) Glucose Calcium Magnesium Total Bilirubin AST ALT Alkaline Phosphatase Troponin I NT-Pro-B Natriuret Pep Total Protein Albumin Procalcitonin TSH 2.77 Free T4 0.93 COVID-19 Source SARS-CoV-2 (PCR) Influenza Type A (PCR) Influenza Type B (PCR) RSV (PCR) Add-On Test Request Last Vital Signs Temp 36.8 C 02/05/23 13:14 Pulse 82 02/05/23 18:10 Resp 20 02/05/23 18:10 BP 152/88 H 02/05/23 18:10 Pulse Ox 99 02/05/23 18:10 Time Spent Time spent with Patient: 55-74 minutes Time was spent: preparing to see the patient(eg.review tests), obtaining and/or reviewing separately otained hiistory, ordering medications,tests, procedures, referring, communicating with other health animal caregiver, indepentently interpreting results and counseling the patient
[2023-02-05] MEDS: Heparin 5,000 UNITS/ML VIAL 5000 UNITS SC (21:12)
[2023-02-05] MEDS: Metoprolol 12.5 MG TAB PO (21:12)
[2023-02-05 21:14] LABS: Troponin I 71 ng/L (<or=60)
[2023-02-05] MEDS: Memantine 5 MG TAB 10 MG PO (23:04)
[2023-02-05] MEDS: Gabapentin 300 MG CAP PO (23:04)
[2023-02-05] MEDS: Melatonin 3 MG TAB PO (23:04)
[2023-02-05] MEDS: Atorvastatin 40 MG TAB PO (23:04)
[2023-02-06] MEDS: Heparin 5,000 UNITS/ML VIAL 5000 UNITS SC (06:25)
[2023-02-06 06:29] VITALS: BP 146/71; PULSE 73; RESP 169; TEMP 36.2
[2023-02-06 07:00] VITALS: PULSE 69
[2023-02-06] MEDS: Pantoprazole 40 MG TABCR PO (07:21)
[2023-02-06 07:33] LABS: HCT 25.6 % (36.0-46.0); HGB 7.9 g/dL (11.2-15.7); MCH 29.6 pg (27.0-33.0); MCHC 30.9 % (32.0-36.0); MCV 96 fL (80-95); MPV 10.5 fL (8.0-11.0); Platelet Count 342 10^3/uL (130-400); RBC 2.67 10^6/uL (3.93-5.22); RDW 14.1 % (11.7-14.6); RDW-SD 49.4 fL; WBC 5.06 10^3/uL (4.4-10.8)
[2023-02-06 07:38] VITALS: BP 143/81; PULSE 66; RESP 18; TEMP 36.2; O2SAT 94
[2023-02-06 07:59] LABS: Anion Gap 8.2 mmol/L (3-11); BUN 44 mg/dL (7-18); CO2 27.8 mmol/L (21.0-32.0); CREATININE 2.2 mg/dL (0.55-1.02); Calcium 9.6 mg/dL (8.5-10.1); Chloride 103 mmol/L (98-107); Estimated GFR 22.39 (mL/min/1.73m2); Glucose 193 mg/dL (74-106); Magnesium 2.1 mg/dL (1.8-2.4); Potassium 3.7 mmol/L (3.5-5.1); Sodium 139 mmol/L (136-145); Troponin I 56 ng/L (<or=60)
[2023-02-06 08:02] LABS: Hemoglobin A1C 6.7 % (<5.7)
[2023-02-06] MEDS: Venlafaxine 150 MG CAPCR PO (08:05)
[2023-02-06] MEDS: Magnesium Oxide 400 MG TAB PO (08:05)
[2023-02-06] MEDS: Ferrous Gluconate 324 MG TAB PO (08:05)
[2023-02-06] MEDS: Metoprolol 12.5 MG TAB PO (08:05)
[2023-02-06] MEDS: Gabapentin 300 MG CAP PO (08:05)
[2023-02-06] MEDS: Folic Acid 1 MG TAB PO (08:05)
[2023-02-06] MEDS: Ascorbic Acid 500 MG TAB PO (08:05)
[2023-02-06] MEDS: Aspirin E.C. 81 MG TABEC PO (08:05)
[2023-02-06] MEDS: Insulin Aspart 300 UNITS/3 ML PEN SC ×2 (08:17→12:07)
--- NOTE | 2023-02-06 08:57 | TELEP.MEDR_ITS ---
Date of service: 02/06/23 Time of Service: 09:00 Telepharmacy Home Med Rec Allergies Allergies: azithromycin Allergy (Unknown, Verified 01/26/23 14:56) codeine Allergy (Unknown, Verified 01/26/23 14:56) Interview Person Interviewed: * n/a- home med list updated from faciltiy KAREEM Quality Quality of Interview/Accuracy of Medication List: Excellent Sources Sources used to compile medication list: [facility] ([facility]) Changes made to Home Medication List: ADDITIONS: * Excedrin Extra strength- 1 tab PO BID DELETIONS: * Ascorbic acid CHANGES: * Acetaminophen 1000mg PO BID PRN * Docusate 100mg PO daily (and BID PRN) * Humalog 7 units subq TID before meals Additional Notes Additional Notes: * none Recommended Changes Recommended Changes(reason for recommendation): * none Attestation: The home medication list is now updated to the best of my knowledge and is ready to be reconciled by the provider. Please contact the TelePharmacy Medication Reconciliation Pharmacist at for any questions.
--- NOTE | 2023-02-06 08:57 | TELEP.MEDREC ---
Date of service: 02/06/23 Time of Service: 09:00 Telepharmacy Home Med Rec Allergies Allergies: azithromycin Allergy (Unknown, Verified 01/26/23 14:56) codeine Allergy (Unknown, Verified 01/26/23 14:56) Interview Person Interviewed: n/a- home med list updated from faciltiy KAREEM Quality Quality of Interview/Accuracy of Medication List: Excellent Sources Sources used to compile medication list: [facility] ([facility]) Changes made to Home Medication List: ADDITIONS: Excedrin Extra strength- 1 tab PO BID DELETIONS: Ascorbic acid CHANGES: Acetaminophen 1000mg PO BID PRN Docusate 100mg PO daily (and BID PRN) Humalog 7 units subq TID before meals Additional Notes Additional Notes: none Recommended Changes Recommended Changes(reason for recommendation): none Attestation: The home medication list is now updated to the best of my knowledge and is ready to be reconciled by the provider. Please contact the TelePharmacy Medication Reconciliation Pharmacist at for any questions.
--- NOTE | 2023-02-06 09:00 | INITIAL_ITS ---
Date of service: 02/06/23 Time of Service: 09:08 Care Management Initial Assmt Initial Assessment REASON FOR HOSPITALIZATION:: SVT, possible pneumonia PREVIOUS FUNCTIONAL STATUS/SOCIAL/FAMILY SUPPORTS:: New to [facility], presents from [facility], where she reports she admitted a few months ago due to frequent falls at home. Taryn's daughter, Mercedes resides in [place]. CURRENT FUNCTIONAL STATUS:: Preparing for discharge. ADVANCE DIRECTIVES:: None on file. CODE STATUS:: Full Code INSURANCE COVERAGE / FINANCIAL ISSUES:: C, MCR, FRANCIS CURRENT HOME/COMMUNITY SERVICES/EQUIPMENT:: SNF: [facility] PRIMARY CARE PHYSICIAN:: Pilar Rogers POTENTIAL DISCHARGE NEEDS:: Follow up appointments, ECHO PATIENT/FAMILY EDUCATION NEEDS:: Review discharge instructions, discuss Ask Me Three. ANTICIPATED BARRIERS TO DISCHARGE:: ECHO unavailable. TRANSPORTATION:: Facility W/C Van PLAN:: Per MD, ECHO required which is unavailable until 02/09/23, Taryn will return to [facility] and follow up as an outpatient. She will transport via [facility] W/C van, coordinated by this communications writer. PFSH All Active Problems (Updated 02/05/23 @ 21:36 by Josemanuel Humphreys) Pericardial effusion (Acute) Discharge planning issues (Acute) DVT prophylaxis (Acute) Post herpetic neuralgia (Acute) Mass of right lung (Acute) Narrow complex tachycardia (Acute) Diabetes mellitus (Chronic) Renal mass (Acute) Aortic stenosis (Chronic) GERD (gastroesophageal reflux disease) (Chronic) Chronic kidney disease, stage 4 (severe) (Acute) Hyperlipidemia (Acute) HTN (hypertension) with goal to be determined (Acute) Medical History (Updated 02/05/23 @ 21:36 by Josemanuel Humphreys) Anemia due to CKD Anxiety Depressed GI bleed Major depressive disorder Muscle weakness Osteoarthritis Other abnormalities of gait and mobility PTSD (post-traumatic stress disorder) Type 2 diabetes mellitus Surgical History (Updated 02/05/23 @ 21:18 by Josemanuel Humphreys) S/P cholecystectomy S/P hysterectomy Family History (Updated 02/05/23 @ 21:20 by Josemanuel Humphreys) Mother , age 69, also had aortic valve replacement Heart disease Social History (Updated 02/05/23 @ 21:21 by Josemanuel Humphreys) Smoking/Tobacco Use Status: Never Smoking risk assessment performed?: Yes Alcohol Intake: never Drug use: Never Substance use type: does not use Housing: apartment Do you feel safe at home: Yes Do you feel safe in your relationship?: Yes Additional Social history: Living at [facility] after living in [facility] for many years Has 4 sons and one daughter.
[2023-02-06] MEDS: Docusate Sodium 100 MG CAP PO (10:08)
[2023-02-06] MEDS: Milk of Magnesia 30 ML CUP PO (10:08)
--- NOTE | 2023-02-06 10:10 | RESPIRATORY ---
RT Assessment Start: 02/06/23 05:29 Freq: .q shift and prn Status: Active Protocol: Document 02/06/23 09:55 MF (Rec: 02/06/23 10:10 MF [id number]) RT Assessment Smoking History Smoking/Tobacco Use Status Never OXYGEN HISTORY: CPAP Can use home machine No BIPAP Can you home machine No Trilogy/AVAPS Can use home machine No Current Respiratory Symptoms Current Respiratory Symptoms Cough,Shortness of breath Respiratory Breath Sounds Breath Sounds Any abnormal sounds, decreased breath sounds Pulse Rate <100 Respiratory Rate 18-25 Shortness of Breath On exertion Respiratory Therapy Score Total 3 Assessment and Plan RT Treatment Protocol No RT treatment protocols required at this time, re- consult if change
[2023-02-06 11:35] VITALS: BP 154/85; PULSE 64; RESP 17; TEMP 36.7; O2SAT 95
--- NOTE | 2023-02-06 12:31 | W.PM.DS.N ---
Date of service: 02/06/23 Time of Service: 12:31 DS: Diagnosis Discharge Diagnosis (1) Narrow complex tachycardia: Status: Acute (2) Pericardial effusion: Status: Acute (3) Diabetes mellitus: Status: Chronic (4) Mass of right lung: Status: Acute (5) Aortic stenosis: Status: Chronic (6) Chronic kidney disease, stage 4 (severe): Status: Acute (7) Post herpetic neuralgia: Status: Acute (8) Anemia: Discharge Plan Disposition Patient Disposition: [facility] Condition: Good Condition: Stable Discharge Details Reason For Visit: SVT,possible pneumonia Admit Date/Time: 02/05/23 18:05 Admit Provider: Robyn Chowdhury Attending Provider: Robyn Chowdhury [facility]: Ms Miller is a 77 year old female with PMHx of, per patient, pericardial effusion, , HTN, hyperlipidemia, CKD4, IDDM2, who was observed on [facility] hospitalist service from 02/05/23 until 02/06/23 having presented with chest discomfort and palpitations with radiation to L shoulder starting two days prior to her ER visit. Of note, the patient was receiving excedrin migraine at the nursing facility for a headache. The patient was found to be in narrow complex tachycardia with HR in 150s (SVT vs Aflutter). The patient converted to NSR post a dose of IV lopressor, after which she was started on PO lopressor. She has remained in NSR since. The case was discussed with cardiology who had recommended observation in our facility overnight with an outpatient ehco. Of note, the headache that was being treated with excedrine migraine (which contains caffeine) was actually due to post-herpetic neuralgia after a bout of shingles. She should not receive excedrine at this point and should limit her caffeine intake to 1 cup a day. She ruled out for ACS by EKGs and troponins. She does have a pericardial effusion which should be followed up with an outpatient echocardiogram. There was no evidence of tamponade by vital signs or by EKG. Her TSH is 2.77, which is normal. She is being discharged with a cardiac event recorder. Her CT chest/abdomen/pelvis revealed a moderate L-sided pelural effusion, moderate pericardial effusion and bilateral upper lobe opacities (infectious vs neoplastic process). She is being referred to cardiology for both the SVT episode and the pericardial effusion. She had a negative procalcitonin, which makes an infectious process in her lungs less likely, but due to the nature of the CT findings, is being discharged back to [facility] today with a 5 day course of augmentin. She is being referred to Dr Stark of pulmonology for further evaluation of her pulmonary findings. Provider at the nursing facility could consider starting her on diuresis if she becomes symptomatic of her pleural effusion. Care for patient as well as completion of her discharge summary took 45 minutes on the day of discharge. Home Meds and New Rx's Prescriptions: New gabapentin 300 mg Capsule 300 mg PO BID Qty: 0 0RF metoprolol tartrate 25 mg Tablet 12.5 mg PO BID Qty: 0 0RF amoxicillin-pot clavulanate [Augmentin] 500-125 mg tablet 1 tab PO Q12H Qty: 9 0RF Continued acetaminophen [Tylenol Extra Strength] 500 mg tablet 1,000 mg PO BID aspirin [Adult Aspirin Regimen] 81 mg tablet,delayed release (DR/EC) 81 mg PO DAILY atorvastatin 40 mg tablet 40 mg PO DAILY ferrous gluconate 240 mg (27 mg iron) tablet 240 mg PO DAILY insulin lispro [Humalog KwikPen Insulin] 100 unit/mL insulin pen 7 unit subcut QAC melatonin 3 mg capsule 3 mg PO HS memantine 10 mg tablet 10 mg PO HS polyethylene glycol 3350 17 gram/dose powder 17 g PO DAILY Rx Instructions: *and additional 17gm PO daily PRN nitroglycerin [Nitrostat] 0.4 mg tablet, sublingual 0.4 mg sublingual Q5M PRN Rx Instructions: do not exceed 3 doses per episode pantoprazole [Protonix] 40 mg tablet,delayed release (DR/EC) 40 mg PO DAILY riboflavin (vitamin B2) 100 mg tablet 100 mg PO BID venlafaxine 150 mg capsule,extended release 24hr 150 mg PO DAILY docusate sodium [Colace] 100 mg capsule 100 mg PO DAILY Rx Instructions: *and BID PRN folic acid 1 mg tablet 1,000 mcg PO DAILY Levemir U-100 Insulin 100 unit/mL solution 15 unit subcut QHS magnesium oxide 400 mg magnesium capsule 400 mg PO BID oxybutynin chloride 5 mg tablet 5 mg PO BID PRN Discontinued Excedrin Extra Strength 250-250-65 mg Tablet 1 tab PO BID Discharge Instructions Instructions: Metoprolol (By mouth), Amoxicillin/Clavulanate Potassium (By mouth), Gabapentin (By mouth), Supraventricular Tachycardia (DC), Shingles (DC), Pleural Effusion (DC), Pericardial Effusion (DC) Additional Instructions: Finish antibiotics as prescribed (9 doses). Return to the hospital with any fever, bleeding, chest pain, shortness of breath, or recurrent palpitations. Follow up with pulmonology and cardiology. Stand Alone Forms: Nursing Discharge Form Referrals: Comfort Vila MD [ [facility] STAFF PHYSICIAN] - (Please call Wednesday to make appointment. ) Ghazala Stark MD [ [facility] STAFF PHYSICIAN] - (Please call Wednesday to make a follow up appointment. ) Activity:: Activity as Tolerated Equipment/Supplies:: cardiac event recorder Diet:: heart healthy Discharge Orders Discharge Orders: Discharge Order (Routine); Ordered 02/06/23 Ordered By: Robyn Chowdhury Other Ambulatory Orders: Cardiac Event Recorder (Routine) Timeframe: 1 Day Facility: [facility] - Location: Respiratory Therapy Ordered By: Robyn Chowdhury echocardiogram (Routine) Facility: [facility] - Location: DIAGNOSTIC IMAGING Ordered By: Robyn Chowdhury DS: Summary Time Spent with Patient providing and/or coordinating discharge services: Greater than 30 minutes Status at Discharge Functional status at discharge: uses cane/walker Overall status at discharge: patient is back to baseline Mental Status: mental status grossly normal Speech and Movement: speech and movement normal Mood: congruent mood Affect: normal affect Exam Narrative Exam Narrative: General: Pleasant frail female who appears comfortable sitting in a chair HEENT: EOMI, MMM, does have scabbed over healing/healed lesions of shingles on L side of her scalp anteriorly Heart: RRR, + JULIANE Lungs: CTAB Abdomen: soft, nontender, nondistended Extremities: no edema BLEs Psych Mental Status: mental status grossly normal Speech and Movement: speech and movement normal Mood: congruent mood Affect: normal affect DS: Data Vitals/I&O Vitals and I&O: Vital Signs Temperature 36.7 C 02/06/23 11:35 Temperature Source Tympanic 02/06/23 11:35 Pulse 64 09/02/23 11:35 Pulse Rhythm Regular 02/06/23 00:52 Pulse 78 02/05/23 16:40 Respiratory Rate 17 02/06/23 11:35 Respiratory Effort Normal, Non-Labored 02/06/23 00:52 Respiratory Depth Normal 02/06/23 00:52 Respiratory Pattern Normal 02/06/23 00:52 Blood Pressure 154/85 H 02/06/23 11:35 Blood Pressure Mean 98 02/05/23 16:33 Pulse Oximetry 95 02/06/23 11:35 Oxygen Delivery Method Room Air 02/06/23 11:35 Oxygen Flow Rate 0 02/06/23 11:35 Pain Level 0 02/06/23 11:35 Comment Pt. denies pain at this time. 02/06/23 12:05 Intake & Output 02/05/23 02/06/23 02/06/23 23:59 11:59 23:59 Intake Total 1270 / 1270 Balance 1270 / 1270 Weight 62.142 kg Intake: Oral 1270 / 1270 Other: Urine Color Yellow Urine Appearance Clear Voiding Methods Diaper Incontinent Data Completed and Pending Completed studies during hospitalization [Text1]: CT chest/abdomen/pelvis: Chest: Moderate size left pleural effusion.? Moderate pericardial effusion. Bilateral upper lobe lobe opacities could represent an infectious or neoplastic processes. No acute abnormality in the abdomen pelvis. Labs on day of discharge: Labs from last 24 hours 02/06/23 02/06/23 02/06/23 07:03 07:03 07:03 WBC 5.06 RBC 2.67 L Hgb 7.9 L Hct 25.6 L MCV 96 H MCH 29.6 MCHC 30.9 L RDW 14.1 Plt Count 342 MPV 10.5 Immature Gran % Neutrophils % Lymphocytes % Monocytes % Eosinophils % Basophils % Nucleated RBC % Absolute Neutrophils Absolute Lymphocytes Absolute Monocytes Absolute Eosinophils Absolute Basophils Sodium 139 Potassium 3.7 Chloride 103 Carbon Dioxide 27.8 Anion Gap 8.2 BUN 44 H Creatinine 2.2 H Est GFR (CKD-EPI 2020) 22.39 Glucose 193 H Hemoglobin A1c 6.7 H Calcium 9.6 Magnesium 2.1 Total Bilirubin AST ALT Alkaline Phosphatase Troponin I 56 NT-Pro-B Natriuret Pep Total Protein Albumin Procalcitonin TSH Free T4 COVID-19 Source SARS-CoV-2 (PCR) Influenza Type A (PCR) Influenza Type B (PCR) RSV (PCR) Add-On Test Request 02/05/23 02/05/23 02/05/23 20:46 16:12 16:12 WBC RBC Hgb Hct MCV MCH MCHC RDW Plt Count MPV Immature Gran % Neutrophils % Lymphocytes % Monocytes % Eosinophils % Basophils % Nucleated RBC % Absolute Neutrophils Absolute Lymphocytes Absolute Monocytes Absolute Eosinophils Absolute Basophils Sodium Potassium Chloride Carbon Dioxide Anion Gap BUN Creatinine Est GFR (CKD-EPI 2020) Glucose Hemoglobin A1c Calcium Magnesium Total Bilirubin AST ALT Alkaline Phosphatase Troponin I 71 H* NT-Pro-B Natriuret Pep Total Protein Albumin Procalcitonin TSH 2.77 Free T4 0.93 COVID-19 Source SARS-CoV-2 (PCR) Influenza Type A (PCR) Influenza Type B (PCR) RSV (PCR) Add-On Test Request DONE 02/05/23 02/05/23 02/05/23 16:12 15:22 13:36 WBC RBC Hgb Hct MCV MCH MCHC RDW Plt Count MPV Immature Gran % Neutrophils % Lymphocytes % Monocytes % Eosinophils % Basophils % Nucleated RBC % Absolute Neutrophils Absolute Lymphocytes Absolute Monocytes Absolute Eosinophils Absolute Basophils Sodium Potassium Chloride Carbon Dioxide Anion Gap BUN Creatinine Est GFR (CKD-EPI 2020) Glucose Hemoglobin A1c Calcium Magnesium Total Bilirubin AST ALT Alkaline Phosphatase Troponin I 69 H* NT-Pro-B Natriuret Pep Total Protein Albumin Procalcitonin 0.1 TSH Free T4 COVID-19 Source Nasopharynx SARS-CoV-2 (PCR) Negative Influenza Type A (PCR) Negative Influenza Type B (PCR) Negative RSV (PCR) Negative Add-On Test Request 02/05/23 02/05/23 13:36 13:36 WBC 6.74 RBC 3.00 L Hgb 8.7 L Hct 28.0 L MCV 93 MCH 29.0 MCHC 31.1 L RDW 14.0 Plt Count 397 MPV 10.3 Immature Gran % 0.3 Neutrophils % 63.4 Lymphocytes % 21.5 Monocytes % 7.6 Eosinophils % 5.9 Basophils % 1.3 Nucleated RBC % 0.0 Absolute Neutrophils 4.27 Absolute Lymphocytes 1.45 Absolute Monocytes 0.51 Absolute Eosinophils 0.40 Absolute Basophils 0.09 Sodium 142 Potassium 3.7 Chloride 102 Carbon Dioxide 28.8 Anion Gap 11.2 H BUN 41 H Creatinine 2.3 H Est GFR (CKD-EPI 2020) 21.22 Glucose 60 L Hemoglobin A1c Calcium 9.9 Magnesium 2.2 Total Bilirubin 0.2 AST 16 ALT 6 L Alkaline Phosphatase 97 Troponin I 70 H* NT-Pro-B Natriuret Pep 3888 H Total Protein 7.6 Albumin 2.7 L Procalcitonin TSH Free T4 COVID-19 Source SARS-CoV-2 (PCR) Influenza Type A (PCR) Influenza Type B (PCR) RSV (PCR) Add-On Test Request PFSH All Active Problems (Updated 02/05/23 @ 21:36 by Josemanuel Humphreys) Pericardial effusion (Acute) Discharge planning issues (Acute) DVT prophylaxis (Acute) Post herpetic neuralgia (Acute) Mass of right lung (Acute) Narrow complex tachycardia (Acute) Diabetes mellitus (Chronic) Renal mass (Acute) Aortic stenosis (Chronic) GERD (gastroesophageal reflux disease) (Chronic) Chronic kidney disease, stage 4 (severe) (Acute) Hyperlipidemia (Acute) HTN (hypertension) with goal to be determined (Acute) Medical History (Updated 02/05/23 @ 21:36 by Josemanuel Humphreys) Anemia due to CKD Anxiety Depressed GI bleed Major depressive disorder Muscle weakness Osteoarthritis Other abnormalities of gait and mobility PTSD (post-traumatic stress disorder) Type 2 diabetes mellitus Surgical History (Updated 02/05/23 @ 21:18 by Josemanuel Humphreys) S/P cholecystectomy S/P hysterectomy Family History (Updated 02/05/23 @ 21:20 by Josemanuel Humphreys) Mother , age 69, also had aortic valve replacement Heart disease Social History (Updated 02/05/23 @ 21:21 by Josemanuel Humphreys) Smoking/Tobacco Use Status: Never Smoking risk assessment performed?: Yes Alcohol Intake: never Drug use: Never Substance use type: does not use Housing: apartment Do you feel safe at home: Yes Do you feel safe in your relationship?: Yes Additional Social history: Living at [facility] after living in [facility] for many years Has 4 sons and one daughter. Time Spent with Patient Time Spent with Patient: 45-69 minutes Time was spent: preparing to see the patient(eg.review tests), obtaining and/or reviewing separately otained hiistory, ordering medications,tests, procedures, referring, communicating with other health home visit field care manager, indepentently interpreting results, counseling the patient and care coordination
--- NOTE | 2023-02-06 12:38 | PDOC.CMDIS ---
Date of service: 02/06/23 Time of Service: 12:38 LACE Index Scoring Tool Questions: Length of Stay (in days): 1 Was the patient admitted via the E.D.?: Yes Comorbidities: Diabetes w/o Complication, Any Tumor and Liver or Renal Disease E.D. Visits: 0 Answers: Total Score: 9 Risk of Readmission: Low Risk Care Management Discharge Plan Reason for Hospitalization: SVT, possible pneumonia Discharge Plan: Per MD, ECHO required which is unavailable until 02/09/23, Taryn will return to [facility] and follow up as an outpatient, engine monitor will be placed prior to discharge. She will transport via [employer], coordinated by this commercial loan underwriter. Patient/Family Education Needs: Review discharge instructions, discuss Ask Me Three. Services Needed at Discharge: Half-Way Facility (Return to [facility]) and Transportation ([employer])
[2023-02-06 13:21] VITALS: PULSE 65
[2023-02-06] MEDS: Amoxicillin 500/Clav. 125 TAB PO (13:23)
--- NOTE | 2023-02-06 15:17 | NUR.NOTE ---
Nursing Note: At approximately 1302 on 02/06/23, this RN called a nurse to nurse report to Toyin (nurse) at [facility].
== END 2023-02-06 13:30 | disposition skilled nursing facility (03) ==
LOC: ER 17:59 → MS 20:28
PROVIDERS: Nurse Practitioner Family; Admitting Provider Internal Medicine; Emergency Provider Emergency Medicine Emergency Medical Services; PCP Family Medicine; Visit Provider Internal Medicine
DX: I47.1 Supraventricular tachycardia (principal); I31.39 Other pericardial effusion (noninflammatory); I35.0 Nonrheumatic aortic (valve) stenosis; N18.4 Chronic kidney disease, stage 4 (severe); J90 Pleural effusion, not elsewhere classified; B02.29 Other postherpetic nervous system involvement; R91.8 Other nonspecific abnormal finding of lung field; D63.1 Anemia in chronic kidney disease; E11.22 Type 2 diabetes mellitus with diabetic chronic kidney disease; R41.89 Other symptoms and signs involving cognitive functions and awareness; K21.9 Gastro-esophageal reflux disease without esophagitis; E78.5 Hyperlipidemia, unspecified; I12.9 Hypertensive chronic kidney disease with stage 1 through stage 4 chronic kidney disease, or unspecified chronic kidney disease; F41.9 Anxiety disorder, unspecified; F32.9 Major depressive disorder, single episode, unspecified; F43.10 Post-traumatic stress disorder, unspecified; R26.9 Unspecified abnormalities of gait and mobility; Z79.899 Other long term (current) drug therapy; Z79.4 Long term (current) use of insulin; R07.89 Other chest pain; R51.9 Headache, unspecified
CPT/HCPCS: 36415; 36416; 71250; 80048; 80053; 82962; 84145; 85027; 87637; 93005; 96374; 96375; 99291; 74176; 83036; 83735; 83880; 84439; 84443; 84484; 85025; 93010; 99239; G0378; J1644; J1941; J3490

== ENCOUNTER 2023-02-06 13:21 | Outpatient (CLI) | payer MEDICARE, MEDICAID, SELFPAY | END 2023-02-06 13:22 | disposition home or self-care (01) | LOC: RT 13:22 | PROVIDERS: PCP Family Medicine; Visit Provider Family Medicine | DX: I47.1 Supraventricular tachycardia (principal) | CPT/HCPCS: 93270 ==

== ENCOUNTER 2023-02-18 16:29 | Outpatient (REF) | payer MEDICARE, MEDICAID, SELFPAY ==
[2023-02-18 17:08] LABS: HGB 7.6 g/dL (11.2-15.7)
[2023-02-18 17:43] LABS: Hemoglobin A1C 6.4 % (<5.7)
[2023-02-18 18:18] LABS: Anion Gap 6.3 mmol/L (3-11); BUN 55 mg/dL (7-18); CO2 30.7 mmol/L (21.0-32.0); CREATININE 2.5 mg/dL (0.55-1.02); Calcium 8.9 mg/dL (8.5-10.1); Calculated LDL 88 mg/dL (<100); Chloride 104 mmol/L (98-107); Cholesterol 168 mg/dL (<200); Glucose 211 mg/dL (74-106); HDL Cholesterol 56 mg/dL (40-60); Potassium 4.8 mmol/L (3.5-5.1); Sodium 141 mmol/L (136-145); Triglyceride 122 mg/dL (<150)
== END 2023-02-18 16:30 | disposition home or self-care (01) ==
LOC: LBN 16:29
PROVIDERS: PCP Family Medicine; Visit Provider Physician Assistant
DX: E78.5 Hyperlipidemia, unspecified (principal); I12.9 Hypertensive chronic kidney disease with stage 1 through stage 4 chronic kidney disease, or unspecified chronic kidney disease; E11.22 Type 2 diabetes mellitus with diabetic chronic kidney disease; Z79.4 Long term (current) use of insulin; D63.1 Anemia in chronic kidney disease
CPT/HCPCS: 80048; 80061; 83036; 85018

== ENCOUNTER 2023-03-01 08:30 | Outpatient (CLI) | payer MEDICARE, MEDICAID, SELFPAY ==
--- NOTE | 2023-03-01 08:32 | W.CARDEVENT ---
Date of service: 03/01/23 Time of Service: 08:32 Cardiac Event Recorder Referring Provider:: Robyn Chowdhury Indications:: SVT Cardiac Event Note: This is a cardiac event monitor reportedly ordered for SVT Patient was monitored for 5 days Rhythm throughout was sinus with an average heart rate of 70 There was no bradycardia, no SVT, no atrial fibrillation, no ventricular dysrhythmias There were no apparent patient symptoms
== END 2023-03-01 08:31 | disposition home or self-care (01) ==
LOC: CARDOPNVT 08:30
PROVIDERS: PCP Family Medicine; Visit Provider Internal Medicine Cardiovascular Disease
DX: I47.1 Supraventricular tachycardia (principal)
CPT/HCPCS: 93272

== ENCOUNTER 2023-06-06 11:40 | Observation (INO) | payer MEDICARE, MEDICAID, SELFPAY ==
[2023-06-06] VITALS (48 sets, daily range): BP systolic 106–144; BP diastolic 35–68; PULSE 63–72; RESP 13–26; TEMP 36.1–37.7; O2SAT 88–100
--- NOTE | 2023-06-06 11:46 | ED.GENADUL_ITS ---
HPI General Stated Complaint: Nk/Back Pain RENA: 4 Date/Time Provider Initiated Documentation: 06/06/23 11:46. HPI Narrative: 78 year-old female presents to ED today by EMS with a chief complaint of back pain, sent by [facility] from across the street- was seen recently and started on methocarbomol with improvement -staff states that this morning she has been lethargic, complaining of increased back pain and they are concerned for a fever of 100.1 F. They state that their on-call provider wanted x-rays. Quality described as back pain with chest tightness, no radiation to respiratory distress, nausea or vomiting, endorses mostly right paraspinal back pain in the midthoracic area, headaches, dizziness, fatigue, endorses having daily nausea/vomiting at least once. Severity is described as 6-7/10. Palliating factors include methocarbamol last night with relief, Tylenol this morning. Provoking factors include nothing specific. Patient not anticoagulated. Related Data Home Medications Medication Instructions Recorded Confirmed acetaminophen 500 mg tablet 1,000 mg PO BID 01/13/23 06/06/23 (Tylenol Extra Strength) aspirin 81 mg tablet,delayed 81 mg PO DAILY 01/13/23 06/06/23 release (Adult Aspirin Regimen) atorvastatin 40 mg tablet 40 mg PO DAILY 01/13/23 06/06/23 ferrous gluconate 240 mg (27 mg 240 mg PO DAILY 01/13/23 06/06/23 iron) tablet insulin lispro 100 unit/mL 7 unit subcut [facility] 01/13/23 06/06/23 subcutaneous pen (Humalog KwikPen (U-100) Insulin) melatonin 3 mg capsule 3 mg PO HS 01/13/23 06/06/23 memantine 10 mg tablet 10 mg PO HS 01/13/23 06/06/23 nitroglycerin 0.4 mg sublingual 0.4 mg sublingual Q5M PRN 01/13/23 06/06/23 tablet (Nitrostat) pantoprazole 40 mg tablet,delayed 40 mg PO DAILY 01/13/23 06/06/23 release (Protonix) polyethylene glycol 3350 17 17 g PO DAILY 01/13/23 06/06/23 gram/dose oral powder riboflavin (vitamin B2) 100 mg 100 mg PO BID 01/13/23 06/06/23 tablet venlafaxine 150 mg 150 mg PO DAILY 01/13/23 06/06/23 capsule,extended release 24 hr docusate sodium 100 mg capsule 100 mg PO DAILY 01/19/23 06/06/23 (Colace) folic acid 1 mg tablet 1,000 mcg PO DAILY 01/19/23 06/06/23 insulin detemir U-100 100 unit/mL 15 unit subcut QHS 01/19/23 06/06/23 subcutaneous solution (Levemir U-100 Insulin) magnesium oxide 400 mg PO BID 01/19/23 06/06/23 gabapentin 300 mg capsule 300 mg PO BID #0 caps 02/06/23 06/06/23 dxzvaov-zvnhvemmbgggj-cbidvifp 250 2 tab PO DAILY PRN PRN 06/06/23 06/06/23 mg-250 mg-65 mg tablet (Excedrin Extra Strength) methocarbamol 500 mg tablet 1,000 mg PO Q8H PRN 06/06/23 06/06/23 metoprolol succinate 100 mg 100 mg PO DAILY 06/06/23 06/06/23 tablet,extended release 24 hr cefpodoxime 200 mg tablet 200 mg PO DAILY #7 tabs 06/07/23 doxycycline hyclate 100 mg capsule 100 mg PO BID #10 caps 06/07/23 guaifenesin 600 mg tablet, 600 mg PO BID #14 tabs 06/07/23 extended release 12 hr (Mucus Relief ER) Previous Rx's Medication Instructions Recorded gabapentin 300 mg capsule 300 mg PO BID #0 caps 02/06/23 cefpodoxime 200 mg tablet 200 mg PO DAILY #7 tabs 06/07/23 doxycycline hyclate 100 mg capsule 100 mg PO BID #10 caps 06/07/23 guaifenesin 600 mg tablet, 600 mg PO BID #14 tabs 06/07/23 extended release 12 hr (Mucus Relief ER) Allergies Allergy/AdvReac Type Severity Reaction Status Date / Time azithromycin Allergy Unknown Verified 06/06/23 11:42 codeine Allergy Unknown Verified 06/06/23 11:42 Review of Systems All systems reviewed & are unremarkable except as noted in HPI and below PFSH All Active Problems (Updated 06/08/23 @ 00:05 by SHOBHA RUIZ) Pneumonia (Acute) Pericardial effusion (Acute) Post herpetic neuralgia (Acute) Mass of right lung (Acute) Narrow complex tachycardia (Acute) Diabetes mellitus (Chronic) Renal mass (Acute) Aortic stenosis (Chronic) GERD (gastroesophageal reflux disease) (Chronic) Chronic kidney disease, stage 4 (severe) (Acute) Hyperlipidemia (Acute) HTN (hypertension) with goal to be determined (Acute) Medical History (Updated 06/08/23 @ 00:05 by SHOBHA RUIZ) GI bleed Depressed Other abnormalities of gait and mobility Muscle weakness Osteoarthritis Anemia due to CKD Major depressive disorder PTSD (post-traumatic stress disorder) Anxiety Type 2 diabetes mellitus Surgical History (Updated 02/05/23 @ 21:18 by Josemanuel Humphreys) S/P hysterectomy S/P cholecystectomy Family History (Updated 02/05/23 @ 21:20 by Josemanuel Humphreys) Mother , age 69, also had aortic valve replacement Heart disease Social History (Updated 02/05/23 @ 21:21 by Josemanuel Humphreys) Smoking/Tobacco Use Status: Never Smoking risk assessment performed?: Yes Alcohol Intake: never Drug use: Never Substance use type: does not use Housing: [facility] Do you feel safe at home: Yes Do you feel safe in your relationship?: Yes Additional Social history: Living at [facility] after living in [facility] for many years Has 4 sons and one daughter. Exam Narrative Exam Narrative: GENERAL APPEARANCE: Well-nourished, non-toxic, awake and alert, atraumatic, no acute distress. SKIN: Warm, pink, dry, intact, without rashes/lesions/ulcerations. HEAD: Normocephalic, atraumatic, normal hair distribution for gender/age. EYES: Pupils PERRLA, EOMs intact without nystagmus, normal conjunctiva, no exudates on lids/lashes. ENT: Nares patent, no circumoral cyanosis, no facial swelling NECK: Supple, trachea midline, painless cervical ROM. LUNGS/CHEST: Lungs CTA bilaterally- no rhonchi/rales at bases, no wheezing, non- labored respirations, normal A/P diameter, symmetrical expansion, no chest wall deformity HEART (CV/PV): Regular rate and rhythm with murmur of heard diffusely 4/6, no peripheral edema, no JVD. ABDOMEN: Soft, non-distended, no guarding, no tenderness. MSK: Normal ROM, no swelling/deformity to bilateral UEs or LEs, moving all extremities without weakness, no cyanosis, spine midline without tenderness, normal curvature. Back: TTP R paraspinal mid-thoracic, no vertebral crepitus/step-offs NEURO: Mental Status AAOx4 - alert to person, place, time, events No facial droop, no forehead involvement. Motor: No focal weakness - strength 5/5 in bilateral UEs and LEs, proximal and distal, symmetric. Sensory: sensation intact to light touch globally. Gait normal: patient ambulated without ataxia into ED room. PSYCH: euthymic, cooperative, pleasant, appropriate speech Course 06/06/23 12:00 BNP [NT-proBNP] Stat CRP [C-Reactive Protein] Stat Comprehensive Metabolic Panel Stat Lactate Stat Lipase Stat Magnesium Stat Troponin [Cardiac Troponin I] Stat D-Dimer [COAG] Stat Complete Blood Count w/Diff [HEMO] Stat ESR [HEMO] Stat 06/06/23 12:07 Urinalysis [URIN] Stat 06/06/23 13:00 CT thorax & abd/pel CTA [CT] Stat 06/06/23 14:17 Normal Saline Flush [Saline Flush 10 ml Syringe] See Dose Instructions IVP PRN PRN 06/06/23 14:30 Iohexol [Omnipaque 350] 100 ml IJ DIRECTED Normal Saline - Diluent [Saline 50 ml diluent vial] 50 ml IJ .FOR DI USE 06/06/23 15:12 Cardiac Troponin I Timed Vital Signs Vital signs: Vital Signs Temperature 37.7 C H 06/06/23 11:37 Pulse 68 06/06/23 11:37 Respiratory Rate 16 06/06/23 11:37 Blood Pressure 113/49 L 06/06/23 11:37 Pulse Oximetry 93 06/06/23 11:37 Temperature 37.7 C H 06/06/23 11:37 Pulse 68 06/06/23 11:37 Respiratory Rate 16 06/06/23 11:37 Respiratory Effort Normal, Non-Labored 06/06/23 11:42 Blood Pressure 113/49 L 06/06/23 11:37 Pulse Oximetry 93 06/06/23 11:37 Oxygen Delivery Method Room Air 06/06/23 11:37 Oxygen Flow Rate 0 06/06/23 11:37 Medical Decision Making This dictation utilizes [id number] dictation software and may contain unedited grammatical errors. 78 y/o F presents to ED today with a chief complaint of back pain, fatigue, nausea- had slight improvement with methocarbomol, staff at [facility] reported fever of 100.1F despite this not being technically a fever. Patient denies active cough but does endorse general fatigue. Patients' medical history: Aortic stenosis, history of GI bleeding, type 2 diabetes mellitus, history of pericardial effusion, severe kidney disease. Family and social history: Lives across street at [facility] full-time. Pertinent exam findings / vital signs include R thoracic paraspinal pain, no vertebral tenderness/crepitus/step-offs, NV intact all extremities, murmur of , neuro baseline. Differential / pathologies of concern include aortic dissection, atypical chest pain, thoracic back spasm, pneumonia, PE. Diagnostic studies of: -CBC, CMP, Trop I (+delta trop), CRP, Lipase, BNP, D-dimer, EKG, CTA Chest/ABD/Pelvis, . - CBC shows WBCs 10.6 -CRP/ESR mild elev -BNP 2300, consider pulmonary edema, CHF -D-dimer 3200, consider dissection vs PE -Lipase WNL -Delta trop negative, no ACS -EKG shows no STEMI -CTA chest/abd pelvis shows no dissection or PE, question paving pattern atypical pneumona vs pulmonary edema but asymmetrical -CMP showed chronic CKD, needed contrast study on risk factors, will plan to hydrate under OBS to monitor urine output for ARF in-patient Interventions of: -Ceftriaxone & doxy for possible pneumonia. ED Course/Assessment/Plan: Patient presents with right paraspinal thoracic back pain followed with chest pressure for the past 2 days, there D-dimer was significantly elevated and despite the GFR of 20 I think it is warranted to rule out aortic dissection with her history of severe aortic stenosis and pericardial effusion, CTA of the chest does show a paving like pattern in the right base, posterior of right lower lobe similar to where they have back pain. I did start empiric treatment for pneumonia with ceftriaxone and doxycycline. I did start fluids at 150 mL/h and I think that there BNP elevation is likely due to their ongoing chronic kidney disease rather than a new asymmetrical pulmonary edema as a suggested as a possible diagnosis on the CTA read. The patient has not urinated while here and with her recent administration of contrast I did discuss with hospitalist Dr. Agudelo for an ops admission with a recheck of BMP and monitoring her urine output overnight due to risks of poor follow-up with discharge on a holiday for these concerns. She may need an outpatient echo sometime in the future as she has no diagnosis of CHF she had a mild chronic anemia, no significant leukocytosis she did have mildly elevated CRP and ESR mildly low magnesium not requiring emergent repletion in the ED. Dr. Agudelo did except for an ops admission at 1630. Findings not consistent with aortic dissection, ACS, PE - consistent with possible pneumonia as cause of her back pain, but atypical pulmonary edema not ruled out- may need ECHO for defniitive diagnosis. Disposition of Pneumonia. Patient verbalized understanding of the plan and return to ED criteria and engaged in shared decision making. Medical Records Medical records reviewed: Yes I reviewed the patient's medical records. Imaging Data Radiologic Study: Imaging: CT Scan Radiologist's impression: Exam: CTA Chest With Contrast CTA Abdomen and Pelvis With Contrast Exam date and time: 06/06/2023 2:21 PM Age: 78 years old Clinical indication: Other: Thoracic chest / back pain, d-dimer + TECHNIQUE: Imaging protocol: Computed tomographic angiography of the chest with contrast. Exam focused on the arteries. Computed tomographic angiography of the abdomen and pelvis with contrast. Exam focused on the arteries. 3D rendering (Not supervised by radiologist): MIP and/or 3D reconstructed images were created by the technologist. Radiation optimization: All CT scans at this facility use at least one of these dose optimization techniques: automated exposure control; mA and/or kV adjustment per patient size (includes targeted exams where dose is matched to clinical indication); or iterative reconstruction. Contrast material: OMNI 350; Contrast volume: 100 ml; Contrast route: INTRAVENOUS (IV); COMPARISON: CT CHEST/ABD/PEL WO 02/05/2023 2:41 PM FINDINGS: VASCULATURE: Pulmonary arteries: No main, lobar or segmental pulmonary arterial embolism. Aorta: No aortic aneurysm or dissection. Celiac trunk and mesenteric arteries: No occlusion or significant stenosis. Renal arteries: No occlusion or significant stenosis. Right iliac arteries: No occlusion or significant stenosis. Left iliac arteries: No occlusion or significant stenosis. CHEST: Lungs: There are ground-glass opacities in the right lower lobe with superimposed interlobular septal thickening (crazy paving pattern). Pleural spaces: There is a small left pleural effusion. Heart: Unremarkable. No cardiomegaly. No pericardial effusion. ABDOMEN AND PELVIS: Liver: No mass. Gallbladder and bile ducts: The gallbladder is surgically absent. No intra or extrahepatic biliary ductal dilatation. Pancreas: Unremarkable. No mass. No ductal dilation. Spleen: Unremarkable. No splenomegaly. Adrenal glands: Unremarkable. No mass. Kidneys and ureters: There is a simple-appearing cyst in the right kidney. No follow-up necessary. The left kidney is unremarkable. No hydronephrosis. Stomach and bowel: Unremarkable. No obstruction. No mucosal thickening. Appendix: No evidence of appendicitis. Intraperitoneal space: Unremarkable. No free air. No significant fluid collection. Urinary bladder: Unremarkable. No mass. Reproductive: Unremarkable as visualized. Lymph nodes: Unremarkable. No enlarged lymph nodes. Bones/joints: Unremarkable. No acute fracture. Soft tissues: Unremarkable. IMPRESSION: 1. No pulmonary arterial embolism. No aortic aneurysm or dissection. 2. Crazy paving pattern in the right lower lobe. Differential considerations include asymmetric pulmonary edema, pneumonia and alveolar proteinosis. 3. Small left pleural effusion. Dictated and Authenticated by: Una Merrill MD. Ordering:WENDY Romero MD Lab Data Lab results reviewed: Yes I reviewed the patient's lab results. Labs: Laboratory Tests Range/Units 06/06/23 06/06/23 12:00 15:12 WBC (4.4-10.8) 10^3/uL 10.67 RBC (3.93-5.22) 10^6/uL 3.61 L Hgb (11.2-15.7) g/dL 10.3 L Hct (36.0-46.0) % 33.5 L MCV (80-95) fL 93 MCH (27.0-33.0) pg 28.5 MCHC (32.0-36.0) % 30.7 L RDW (11.7-14.6) % 16.0 H Plt Count (130-400) 10^3/uL 163 MPV (8.0-11.0) fL 11.6 H Immature Gran % 0.3 Neutrophils % 80.2 Lymphocytes % 8.9 Monocytes % 7.8 Eosinophils % 2.1 Basophils % 0.7 Nucleated RBC % (0.0-0.3) % 0.0 Absolute Neutrophils (1.2-6.7) 10^3/uL 8.56 H Absolute Lymphocytes (1.2-3.4) 10^3/uL 0.95 L Absolute Monocytes (0.1-0.8) 10^3/uL 0.83 H Absolute Eosinophils (0.0-0.7) 10^3/uL 0.22 Absolute Basophils (0.0-0.2) 10^3/uL 0.08 ESR (0-30) mm/hr 54 H D-Dimer (<500) ng/mlFEU 3214 H VBG Lactate (0.6-1.4) mmol/L 1.4 Sodium (136-145) mmol/L 141 Potassium (3.5-5.1) mmol/L 4.6 Chloride (98-107) mmol/L 106 Carbon Dioxide (21.0-32.0) mmol/L 27.3 Anion Gap (3-11) mmol/L 7.7 BUN (7-18) mg/dL 56 H Creatinine (0.55-1.02) mg/dL 2.4 H Est GFR (CKD-EPI 2020) (mL/min/1.73m2) 20.04 Glucose (74-106) mg/dL 54 L Calcium (8.5-10.1) mg/dL 9.5 Magnesium (1.8-2.4) mg/dL 1.7 L Total Bilirubin (0.2-1.0) mg/dL 0.4 AST (15-37) U/L 33 ALT (14-59) U/L 26 Alkaline Phosphatase (46-116) U/L 97 Troponin I (<or=60) ng/L < 50 < 50 C-Reactive Protein (0.0-0.3) mg/dL 0.69 H NT-Pro-B Natriuret Pep (<300) pg/mL 2393 H Total Protein (6.4-8.2) g/dL 7.3 Albumin (3.4-5.0) g/dL 2.8 L Lipase (16-77) U/L 46 Discharge Plan Disposition Patient Disposition: Admit to [facility] Condition: Stable Discharge Details Clinical Impression: Pneumonia Admit Date/Time: 06/06/23 16:20 Admit Provider: Ryder Agudelo Attending Provider: Ryder Agudelo Primary Care Provider: Pilar Rogers ED Provider: Nick Bourgeois Discharge Data Discharge Date/Time-TO BE ENTERED AT DEPARTURE: 06/06/23 16:57
[2023-06-06 12:12] LABS: Lactate 1.4 mmol/L (0.6-1.4)
[2023-06-06 12:17] LABS: Abs Immature Grans 0.03 10^3/uL (0.0-0.06); Absolute Basophil Count 0.08 10^3/uL (0.0-0.2); Absolute Eosinophil Count 0.22 10^3/uL (0.0-0.7); Absolute Lymphocyte Count 0.95 10^3/uL (1.2-3.4); Absolute Monocyte Count 0.83 10^3/uL (0.1-0.8); Absolute Neutrophil Count 8.56 10^3/uL (1.2-6.7); Basophils % 0.7; Eosinophils % 2.1; HCT 33.5 % (36.0-46.0); HGB 10.3 g/dL (11.2-15.7); Immature Grans % 0.3; Lymphocytes % 8.9; MCH 28.5 pg (27.0-33.0); MCHC 30.7 % (32.0-36.0); MCV 93 fL (80-95); MPV 11.6 fL (8.0-11.0); Monocytes % 7.8; Neutrophils % 80.2; Platelet Count 163 10^3/uL (130-400); RBC 3.61 10^6/uL (3.93-5.22); RDW-SD 55.1 fL; WBC 10.67 10^3/uL (4.4-10.8)
[2023-06-06 12:21] LABS: ESR 54 mm/hr (0-30)
[2023-06-06 12:40] LABS: ALT 26 U/L (14-59); AST 33 U/L (15-37); Albumin 2.8 g/dL (3.4-5.0); Alkaline Phosphatase 97 U/L (46-116); Anion Gap 7.7 mmol/L (3-11); BUN 56 mg/dL (7-18); Bilirubin, Total 0.4 mg/dL (0.2-1.0); C-Reactive Protein 0.69 mg/dL (0.0-0.3); CO2 27.3 mmol/L (21.0-32.0); CREATININE 2.4 mg/dL (0.55-1.02); Calcium 9.5 mg/dL (8.5-10.1); Chloride 106 mmol/L (98-107); Estimated GFR 20.04 (mL/min/1.73m2); Glucose 54 mg/dL (74-106); Lipase 46 U/L (16-77); Magnesium 1.7 mg/dL (1.8-2.4); NT-proBNP 2393 pg/mL (<300); Potassium 4.6 mmol/L (3.5-5.1); Sodium 141 mmol/L (136-145); Total Protein 7.3 g/dL (6.4-8.2); Troponin I < 50 ng/L (<or=60)
[2023-06-06 12:44] LABS: D-Dimer 3214 ng/mlFEU (<500)
--- NOTE | 2023-06-06 13:00 | DI.CT_ITS ---
Exam(s) CT THORAX ABD/PEL CTA EXAM: CT THORAX ABD/PEL CTA CLINICAL HISTORY: thoracic chest / back pain, d-dimer +. TECHNIQUE: Imaging Protocol: Axial CT angiography was performed with multi-slice acquisition and mu lti-planar and/or 3D reconstructions. CONTRAST MATERIAL: Intravenous: Omnipaque 350 Contrast volume:100 ml COMPARISON: CT CT CHEST/ABD/PEL WO from 02/05/2023 FINDINGS: CHEST: Pulmonary Arteries: No evidence of filling defects to suggest pulmonary emboli. Tracheobronchial tree: No bronchiectasis or mucus plugging. Mediastinum and Kimberlee: No dominant adenopathy or fluid collection. Fluid and debris within esophagus c ould indicate reflux. Pulmonary parenchyma: Diffuse infiltrate now seen involving the right lower lobe. Consolidation at r ight lung base, new since prior. Only mild densities were seen on the prior exam. Resolution of pre viously noted infiltrate in the posteromedial right upper lobe. Dependent changes left lung base. Pleura: Small left pleural effusion. Right pleural thickening. No pneumothorax. Heart: The heart is dilated. coronary artery calcifications are seen. Trace pericardial effusion versus pericardial thickening. Mitral valve annulus CT heavily calcified. Aorta: Thoracic aorta non-dilated. Bones: Unrem prominent thoracic kyphosis without evidence of compression fracture. Tubes, Catheters, and Lines: None. ABDOMEN and PELVIS: Liver: Normal size. Normal density. No suspicious measurable mass. Portal, Superior Mesenteric, and Splenic Veins: Unremarkable. Gallbladder and Biliary Tract: Status post cholecystectomy. No radiodense calculus. No biliary dilat ation. Pancreas: No atrophic. No abnormal calcifications or inflammatory process. Spleen: Normal. Adrenals: No masses seen. Kidneys: Normal size, contour and axis. No radiodense stones. No obstructive uropathy. No suspicious masses seen. Stable right renal cyst. No follow-up recommended. Vasculature: Abdominal aorta non-dilated. Gabj-am-cxdwoefu atherosclerotic changes. No significant stenosis of the aorta or branch vessels.. Bowel: No obstruction or bowel wall thickening. No evidence of appendicitis.. Peritoneal Cavity: No ascites, collection or mesenteric inflammatory response. Lymph Nodes: Within normal limits. Soft Tissues: Prior anterior abdominal wall hernia repair. No new hernia. Bladder: Symmetric distention, no gross wall thickening. Reproductive Organs: Status post hysterectomy. Lymph Nodes: Within normal limits. Bones: Degenerative changes in the spine and hips, right greater than left. IMPRESSION: 1. No evidence of pulmonary embolism. Right lower lobe infiltrate. 2. No acute abdominal or pelvic process. RADIATION DOSE DELIVERED: Total DLP DATA REPOSITORY: All CT scans at this facility are submitted to the National Radiology Data Registry (NRDR) Dose Index Registry (DIR) with the [employer] (ACR). RADIATION OPTIMIZATION: All CT scans at this facility use at least one of these dose optimization te chniques: automated exposure control; mA and/or kV adjustment per patient size (includes targeted exa ms where dose is matched to clinical indication); or iterative reconstruction.
[2023-06-06] MEDS: Normal Saline - Diluent 50 ML VIAL IJ (14:17)
[2023-06-06] MEDS: Omnipaque 350 MG/ML 100 ML BTL IJ (14:18)
[2023-06-06] MEDS: Normal Saline Flush 10 ML SYR IVP ×2 (14:18→18:12)
--- NOTE | 2023-06-06 15:32 | DI.VRAD_ITS ---
PROCEDURE INFORMATION: Exam: CTA Chest With Contrast CTA Abdomen and Pelvis With Contrast Exam date and time: 06/06/2023 2:21 PM Age: 78 years old Clinical indication: Other: Thoracic chest / back pain, d-dimer + TECHNIQUE: Imaging protocol: Computed tomographic angiography of the chest with contrast. Exam focused on the arteries. Computed tomographic angiography of the abdomen and pelvis with contrast. Exam focused on the arteries. 3D rendering (Not supervised by radiologist): MIP and/or 3D reconstructed images were created by the technologist. Radiation optimization: All CT scans at this facility use at least one of these dose optimization techniques: automated exposure control; mA and/or kV adjustment per patient size (includes targeted exams where dose is matched to clinical indication); or iterative reconstruction. Contrast material: OMNI 350; Contrast volume: 100 ml; Contrast route: INTRAVENOUS (IV); COMPARISON: CT CHEST/ABD/PEL WO 02/05/2023 2:41 PM FINDINGS: VASCULATURE: Pulmonary arteries: No main, lobar or segmental pulmonary arterial embolism. Aorta: No aortic aneurysm or dissection. Celiac trunk and mesenteric arteries: No occlusion or significant stenosis. Renal arteries: No occlusion or significant stenosis. Right iliac arteries: No occlusion or significant stenosis. Left iliac arteries: No occlusion or significant stenosis. CHEST: Lungs: There are ground-glass opacities in the right lower lobe with superimposed interlobular septal thickening (crazy paving pattern). Pleural spaces: There is a small left pleural effusion. Heart: Unremarkable. No cardiomegaly. No pericardial effusion. ABDOMEN AND PELVIS: Liver: No mass. Gallbladder and bile ducts: The gallbladder is surgically absent. No intra or extrahepatic biliary ductal dilatation. Pancreas: Unremarkable. No mass. No ductal dilation. Spleen: Unremarkable. No splenomegaly. Adrenal glands: Unremarkable. No mass. Kidneys and ureters: There is a simple-appearing cyst in the right kidney. No follow-up necessary. The left kidney is unremarkable. No hydronephrosis. Stomach and bowel: Unremarkable. No obstruction. No mucosal thickening. Appendix: No evidence of appendicitis. Intraperitoneal space: Unremarkable. No free air. No significant fluid collection. Urinary bladder: Unremarkable. No mass. Reproductive: Unremarkable as visualized. Lymph nodes: Unremarkable. No enlarged lymph nodes. Bones/joints: Unremarkable. No acute fracture. Soft tissues: Unremarkable. IMPRESSION: 1. No pulmonary arterial embolism. No aortic aneurysm or dissection. 2. Crazy paving pattern in the right lower lobe. Differential considerations include asymmetric pulmonary edema, pneumonia and alveolar proteinosis. 3. Small left pleural effusion. Dictated and Authenticated by: Una Merrill MD. Ordering:WENDY Romero MD
[2023-06-06 15:40] LABS: Troponin I < 50 ng/L (<or=60)
[2023-06-06] MEDS: Normal Saline 1,000 ML 150 ML IV ×2 (16:06→23:17)
--- NOTE | 2023-06-06 16:23 | W.PM.HP.N ---
Date of service: 06/06/23 Time of Service: 16:23 Assessment and Plan Assessment and plan (1) Pneumonia: Status: Acute Assessment and plan: Admitted to the medical surgical unit observation status, was placed on ceftriaxone and doxycycline secondary to allergy profile. She is oxygenating in the high 90s on room air. Will add Mucinex for her complaints of cough. Tolerating good oral intake. (2) Diabetes mellitus: Status: Chronic Assessment and plan: Continue usual management check blood sugars before meals and at bedtime provide sliding scale coverage as needed Last hemoglobin A1c shows 6.4. (3) Chronic kidney disease, stage 4 (severe): Status: Acute Assessment and plan: Received IV contrast to rule out PE and dissection. Will be given IV fluids overnight avoid nephrotoxic drugs recheck labs in the a.m. (4) HTN (hypertension) with goal to be determined: Status: Acute Assessment and plan: Blood pressures have been controlled continue home management Monitor routinely discussed with DR Agudelo History of Present Illness History of Present Illness Chief Complaint: Back pain Narrative: This is a 78-year-old female patient presents from the detention with complaints of back pain workup in the emergency department included CT imaging which was suspicious for community-acquired pneumonia. Please see report for further differentials but plan is to admit patient for treatment of pneumonia the area of pain does correlate with the CT findings. She was given ceftriaxone and doxycycline and will be admitted to the hospitalist services for further management. Review of Systems All systems reviewed & are unremarkable except as noted in HPI and below PFSH All Active Problems (Updated 06/06/23 @ 16:59 by ARVIND Mckeon) Pneumonia (Acute) Pericardial effusion (Acute) Post herpetic neuralgia (Acute) Mass of right lung (Acute) Narrow complex tachycardia (Acute) Diabetes mellitus (Chronic) Renal mass (Acute) Aortic stenosis (Chronic) GERD (gastroesophageal reflux disease) (Chronic) Chronic kidney disease, stage 4 (severe) (Acute) Hyperlipidemia (Acute) HTN (hypertension) with goal to be determined (Acute) Medical History (Updated 06/06/23 @ 16:59 by ARVIND Mckeon) GI bleed Depressed Other abnormalities of gait and mobility Muscle weakness Osteoarthritis Anemia due to CKD Major depressive disorder PTSD (post-traumatic stress disorder) Anxiety Type 2 diabetes mellitus Surgical History (Updated 02/05/23 @ 21:18 by Josemanuel Humphreys) S/P hysterectomy S/P cholecystectomy Family History (Updated 02/05/23 @ 21:20 by Josemanuel Humphreys) Mother , age 69, also had aortic valve replacement Heart disease Social History (Updated 02/05/23 @ 21:21 by Josemanuel Humphreys) Smoking/Tobacco Use Status: Never Smoking risk assessment performed?: Yes Alcohol Intake: never Drug use: Never Substance use type: does not use Housing: detention Do you feel safe at home: Yes Do you feel safe in your relationship?: Yes Additional Social history: Living at [facility] after living in [facility] for many years Has 4 sons and one daughter. Meds Allergies and Home Medications Allergies Allergy/AdvReac Type Severity Reaction Status Date / Time azithromycin Allergy Unknown Verified 06/06/23 11:42 codeine Allergy Unknown Verified 06/06/23 11:42 Home Medications Medication Instructions Recorded Confirmed Type acetaminophen 500 mg tablet 1,000 mg PO BID 01/13/23 06/06/23 History (Tylenol Extra Strength) aspirin 81 mg tablet,delayed 81 mg PO DAILY 01/13/23 06/06/23 History release (Adult Aspirin Regimen) atorvastatin 40 mg tablet 40 mg PO DAILY 01/13/23 06/06/23 History ferrous gluconate 240 mg (27 mg 240 mg PO DAILY 01/13/23 06/06/23 History iron) tablet insulin lispro 100 unit/mL 7 unit subcut QAC 01/13/23 06/06/23 History subcutaneous pen (Humalog KwikPen (U-100) Insulin) melatonin 3 mg capsule 3 mg PO HS 01/13/23 06/06/23 History memantine 10 mg tablet 10 mg PO HS 01/13/23 06/06/23 History nitroglycerin 0.4 mg sublingual 0.4 mg sublingual Q5M PRN 01/13/23 06/06/23 History tablet (Nitrostat) pantoprazole 40 mg tablet,delayed 40 mg PO DAILY 01/13/23 06/06/23 History release (Protonix) polyethylene glycol 3350 17 17 g PO DAILY 01/13/23 06/06/23 History gram/dose oral powder riboflavin (vitamin B2) 100 mg 100 mg PO BID 01/13/23 06/06/23 History tablet venlafaxine 150 mg 150 mg PO DAILY 01/13/23 06/06/23 History capsule,extended release 24 hr docusate sodium 100 mg capsule 100 mg PO DAILY 01/19/23 06/06/23 History (Colace) folic acid 1 mg tablet 1,000 mcg PO DAILY 01/19/23 06/06/23 History insulin detemir U-100 100 unit/mL 15 unit subcut QHS 01/19/23 06/06/23 History subcutaneous solution (Levemir U-100 Insulin) magnesium oxide 400 mg PO BID 01/19/23 06/06/23 History gabapentin 300 mg capsule 300 mg PO BID #0 caps 02/06/23 06/06/23 Rx mcrrexi-yrfzhvjfygdqd-shftvopp 250 2 tab PO DAILY PRN PRN 06/06/23 06/06/23 History mg-250 mg-65 mg tablet (Excedrin Extra Strength) methocarbamol 500 mg tablet 1,000 mg PO Q8H PRN 06/06/23 06/06/23 History metoprolol succinate 100 mg 100 mg PO DAILY 06/06/23 06/06/23 History tablet,extended release 24 hr cefpodoxime 200 mg tablet 200 mg PO DAILY #7 tabs 06/07/23 Rx doxycycline hyclate 100 mg capsule 100 mg PO BID #10 caps 06/07/23 Rx guaifenesin 600 mg tablet, 600 mg PO BID #14 tabs 06/07/23 Rx extended release 12 hr (Mucus Relief ER) Exam Narrative Exam Narrative: Well-appearing female younger than stated age head is atraumatic oral mucosa is moist neck is supple with no JVD Skin is pink warm dry well-perfused no rashes Respirations are even and unlabored she has coarse breath sounds throughout no wheezing Cardiovascular regular rate and rhythm I do not appreciate a murmur abdomen is benign extremities are without edema moves all extremities Neuro she is awake alert oriented no focal deficits psychiatric appropriate mood and affect Psych Mental Status: mental status grossly normal Speech and Movement: speech and movement normal Mood: congruent mood Affect: normal affect Results Labs 06/06/23 12:00 06/07/23 09:30 Labs: Laboratory Results - last 24 hr 06/06/23 06/06/23 12:00 15:12 WBC 10.67 RBC 3.61 L Hgb 10.3 L Hct 33.5 L MCV 93 MCH 28.5 MCHC 30.7 L RDW 16.0 H Plt Count 163 MPV 11.6 H Immature Gran % 0.3 Neutrophils % 80.2 Lymphocytes % 8.9 Monocytes % 7.8 Eosinophils % 2.1 Basophils % 0.7 Nucleated RBC % 0.0 Absolute Neutrophils 8.56 H Absolute Lymphocytes 0.95 L Absolute Monocytes 0.83 H Absolute Eosinophils 0.22 Absolute Basophils 0.08 ESR 54 H D-Dimer 3214 H VBG Lactate 1.4 Sodium 141 Potassium 4.6 Chloride 106 Carbon Dioxide 27.3 Anion Gap 7.7 BUN 56 H Creatinine 2.4 H Est GFR (CKD-EPI 2020) 20.04 Glucose 54 L Calcium 9.5 Magnesium 1.7 L Total Bilirubin 0.4 AST 33 ALT 26 Alkaline Phosphatase 97 Troponin I < 50 < 50 C-Reactive Protein 0.69 H NT-Pro-B Natriuret Pep 2393 H Total Protein 7.3 Albumin 2.8 L Lipase 46 Last Vital Signs Temp 37.7 C H 06/06/23 11:37 Pulse 64 06/06/23 15:45 Resp 18 06/06/23 15:50 BP 121/58 L 06/06/23 15:45 Pulse Ox 98 06/06/23 15:50 Time Spent Time spent with Patient: 40-54 minutes Time was spent: preparing to see the patient(eg.review tests), obtaining and/or reviewing separately otained hiistory, ordering medications,tests, procedures, indepentently interpreting results and counseling the patient
[2023-06-06] MEDS: cefTRIAXone 1 GM/50 ML BAG IVPB (16:36)
[2023-06-06] MEDS: DOXYCYCLINE 100 MG in Normal Saline 100 ML IVPB (17:17)
[2023-06-06] MEDS: Lidocaine 5% Patch 2 PATCH TP (18:11)
[2023-06-06 19:13] LABS: Bilirubin Negative (Negative); Blood Trace-intact (Negative); Clarity Cloudy (Clear); Glucose Negative (Negative); Ketones Negative (Negative); Leukocyte Esterase Trace (Negative); Nitrite Positive (Negative); Specific Gravity 1.015 (1.005-1.025); Urobilinogen 0.2 mg/dL (Up to 0.2); pH 5.5 (5-8)
[2023-06-06 19:23] LABS: Bacteria Many HPF (Negative); C & S Indicated? Yes; Casts Negative LPF (Negative); Crystals Negative HPF (Negative); Epithelial Cells Few HPF (Negative); Mucus Negative (Negative); RBC 0-2 HPF (0-2)
[2023-06-06] MEDS: guaiFENesin 600 MG TABCR PO (20:42)
[2023-06-06] MEDS: Magnesium Oxide 400 MG TAB PO (20:42)
[2023-06-06] MEDS: Gabapentin 300 MG CAP PO (20:43)
[2023-06-06] MEDS: Acetaminophen 500 MG TAB 1000 MG PO (20:43)
[2023-06-06] MEDS: Triamcinolone 0.1% CR 15 GM TUBE TP (22:02)
[2023-06-06] MEDS: Metoprolol CR 100 MG TABCR PO (22:11)
[2023-06-06] MEDS: Memantine 5 MG TAB 10 MG PO (22:11)
[2023-06-06] MEDS: Melatonin 3 MG TAB PO (22:12)
[2023-06-07] MEDS: DOXYCYCLINE 100 MG in Normal Saline 100 ML IVPB (04:33)
[2023-06-07 06:05] VITALS: BP 173/74; PULSE 59; RESP 19; TEMP 35.6; O2SAT 92
[2023-06-07 07:12] VITALS: BP 176/76; PULSE 56; RESP 20; TEMP 35.2; O2SAT 91
[2023-06-07] MEDS: Acetaminophen 500 MG TAB 1000 MG PO (07:38)
[2023-06-07] MEDS: guaiFENesin 600 MG TABCR PO (07:38)
[2023-06-07] MEDS: Folic Acid 1 MG TAB PO (07:38)
[2023-06-07] MEDS: Venlafaxine 150 MG CAPCR PO (07:39)
[2023-06-07] MEDS: Docusate Sodium 100 MG CAP PO (07:39)
[2023-06-07] MEDS: Gabapentin 300 MG CAP PO (07:39)
[2023-06-07] MEDS: Pantoprazole 40 MG TABCR PO (07:39)
[2023-06-07] MEDS: Atorvastatin 40 MG TAB PO (07:39)
[2023-06-07] MEDS: Aspirin E.C. 81 MG TABEC PO (07:39)
[2023-06-07] MEDS: Magnesium Oxide 400 MG TAB PO (07:39)
[2023-06-07] MEDS: Triamcinolone 0.1% CR 15 GM TUBE TP (09:10)
[2023-06-07] MEDS: Polyethylene Glycol 3350 17 GM PACKET PO (09:11)
[2023-06-07] MEDS: Ferrous Gluconate 324 MG TAB PO (09:11)
[2023-06-07] MEDS: Lidocaine Patch Removal 2 EACH TP (09:11)
[2023-06-07 09:56] LABS: Anion Gap 8.1 mmol/L (3-11); BUN 50 mg/dL (7-18); CO2 26.9 mmol/L (21.0-32.0); CREATININE 2.4 mg/dL (0.55-1.02); Calcium 9.2 mg/dL (8.5-10.1); Chloride 105 mmol/L (98-107); Estimated GFR 20.04 (mL/min/1.73m2); Glucose 151 mg/dL (74-106); Potassium 4.5 mmol/L (3.5-5.1); Sodium 140 mmol/L (136-145)
--- NOTE | 2023-06-07 10:58 | W.PM.DS.N ---
Date of service: 06/07/23 Time of Service: 10:58 DS: Diagnosis Discharge Diagnosis (1) Pneumonia: Status: Acute (2) Diabetes mellitus: Status: Chronic (3) Chronic kidney disease, stage 4 (severe): Status: Acute (4) HTN (hypertension) with goal to be determined: Status: Acute Discharge Plan Disposition Patient Disposition: Swing Bed(Skilled,SB1) Condition: Stable Discharge Details Reason For Visit: Pneumonia Admit Date/Time: 06/06/23 16:20 Admit Provider: Ryder Agudelo Attending Provider: Ryder Agudelo [facility] Course: This is a 78-year-old female patient who presented from the residential by EMS with complaints of back pain with workup in the emergency department including CT imaging which was suspicious for community-acquired pneumonia. Please see report for further differentials but patient was admitted to med/surg for treatment of pneumonia with the area of pain correlating to findings on CT. She was given ceftriaxone and doxycycline and will be admitted to the hospitalist services for further management. She had no oxygen requirements. Overnight was uneventful in the morning she is reporting improvement in her symptoms feeling they are resolving. Hemodynamically she has remained stable she is eating and drinking. She did receive IV contrast to rule out PE and dissection so received IV fluids overnight. She is voiding well with her BUN and creatinine stable. She was reporting cough which responded to Mucinex. She is stable for discharge back to the residential she will complete a 5-day course of antibiotics. discharge discussed with DR Agudelo [place] Meds and New Rx's Prescriptions: New guaifenesin [Mucus Relief ER] 600 mg Tablet Extended Release 12hr 600 mg PO BID Qty: 14 0RF cefpodoxime 200 mg tablet 200 mg PO BID Qty: 14 0RF Rx Instructions: must administer with a meal/food doxycycline hyclate 100 mg capsule 100 mg PO BID Qty: 10 0RF Continued acetaminophen [Tylenol Extra Strength] 500 mg tablet 1,000 mg PO BID aspirin [Adult Aspirin Regimen] 81 mg tablet,delayed release (DR/EC) 81 mg PO DAILY atorvastatin 40 mg tablet 40 mg PO DAILY ferrous gluconate 240 mg (27 mg iron) tablet 240 mg PO DAILY insulin lispro [Humalog KwikPen Insulin] 100 unit/mL insulin pen 7 unit subcut QAC melatonin 3 mg capsule 3 mg PO HS memantine 10 mg tablet 10 mg PO HS polyethylene glycol 3350 17 gram/dose powder 17 g PO DAILY Rx Instructions: *and additional 17gm PO daily PRN nitroglycerin [Nitrostat] 0.4 mg tablet, sublingual 0.4 mg sublingual Q5M PRN Rx Instructions: do not exceed 3 doses per episode pantoprazole [Protonix] 40 mg tablet,delayed release (DR/EC) 40 mg PO DAILY riboflavin (vitamin B2) 100 mg tablet 100 mg PO BID venlafaxine 150 mg capsule,extended release 24hr 150 mg PO DAILY docusate sodium [Colace] 100 mg capsule 100 mg PO DAILY Rx Instructions: *and BID PRN folic acid 1 mg tablet 1,000 mcg PO DAILY Levemir U-100 Insulin 100 unit/mL solution 15 unit subcut QHS magnesium oxide 400 mg magnesium capsule 400 mg PO BID gabapentin 300 mg Capsule 300 mg PO BID Qty: 0 0RF Excedrin Extra Strength 250-250-65 mg tablet 2 tab PO DAILY PRN PRN methocarbamol 500 mg tablet 1,000 mg PO Q8H PRN metoprolol succinate 100 mg tablet extended release 24 hr 100 mg PO DAILY Patient Comments: takes at HS Discharge Instructions Instructions: Pneumonia (DC) Referrals: Pilar Rogers MD [Primary Care Provider] - Activity:: Activity as Tolerated Equipment/Supplies:: No Equipment Needed Diet:: As Tolerated Discharge Orders Discharge Orders: Discharge Order (Routine); Ordered 06/07/23 Ordered By: Gail Felder DS: Summary Time Spent with Patient providing and/or coordinating discharge services: Less than 30 minutes Status at Discharge Functional status at discharge: uses cane/walker Overall status at discharge: patient is progressing back to baseline Mental Status: mental status grossly normal Speech and Movement: speech and movement normal Mood: congruent mood Affect: normal affect Exam Narrative Exam Narrative: Well-appearing female younger than stated age head is atraumatic oral mucosa is moist neck is supple with no JVD Skin is pink warm dry well-perfused no rashes Respirations are even and unlabored she has coarse breath sounds throughout no wheezing Cardiovascular regular rate and rhythm I do not appreciate a murmur abdomen is benign extremities are without edema moves all extremities Neuro she is awake alert oriented no focal deficits psychiatric appropriate mood and affect Psych Mental Status: mental status grossly normal Speech and Movement: speech and movement normal Mood: congruent mood Affect: normal affect DS: Data Vitals/I&O Vitals and I&O: Vital Signs Temperature 35.2 C L 06/07/23 07:12 Temperature Source Tympanic 06/07/23 07:12 Pulse 56 L 06/07/23 07:12 Pulse Rhythm Regular 06/07/23 08:50 Pulse 63 06/06/23 16:45 Respiratory Rate 20 06/07/23 07:12 Respiratory Effort Normal, Non-Labored 06/07/23 08:50 Respiratory Depth Shallow 06/07/23 08:50 Respiratory Pattern Normal 06/07/23 08:50 Blood Pressure 176/76 H 06/07/23 07:12 Blood Pressure Mean 79 06/06/23 16:45 Pulse Oximetry 91 L 06/07/23 07:12 Oxygen Delivery Method Room Air 06/07/23 07:12 Oxygen Flow Rate 0 06/07/23 07:12 Pain Level 5 06/07/23 07:12 Intake & Output 06/06/23 06/06/23 06/07/23 11:59 23:59 11:59 Intake Total 1370 / 1370 1110 / 1110 Output Total 200 / 200 1000 / 1000 Balance 1170 / 1170 110 / 110 Weight 71.849 kg 72.5 kg Intake: IV 1120 / 1120 1110 / 1110 Oral 250 / 250 Output: Urine 200 / 200 1000 / 1000 Other: Urine Color Yellow Yellow Urine Appearance Clear Clear Urine Odor Foul Normal Voiding Methods Bedside Commode Bedside Commode Data Completed and Pending Labs on day of discharge: Labs from last 24 hours 06/07/23 06/06/23 06/06/23 09:30 19:00 15:12 WBC RBC Hgb Hct MCV MCH MCHC RDW Plt Count MPV Immature Gran % Neutrophils % Lymphocytes % Monocytes % Eosinophils % Basophils % Nucleated RBC % Absolute Neutrophils Absolute Lymphocytes Absolute Monocytes Absolute Eosinophils Absolute Basophils ESR D-Dimer VBG Lactate Sodium 140 Potassium 4.5 Chloride 105 Carbon Dioxide 26.9 Anion Gap 8.1 BUN 50 H Creatinine 2.4 H Est GFR (CKD-EPI 2020) 20.04 Glucose 151 H Calcium 9.2 Magnesium Total Bilirubin AST ALT Alkaline Phosphatase Troponin I < 50 C-Reactive Protein NT-Pro-B Natriuret Pep Total Protein Albumin Lipase Urine Color Yellow Urine Clarity Cloudy Urine pH 5.5 Ur Specific [place] 1.015 Urine Protein 100 H Urine Ketones Negative Urine Blood Trace-intact H Urine Nitrite Positive H Urine Bilirubin Negative Urine Urobilinogen 0.2 Ur Leukocyte Esterase Trace H Urine RBC 0-2 Urine WBC 5-10 Ur Epithelial Cells Few Urine Crystals Negative Urine Bacteria Many Urine Casts Negative Urine Mucus Negative Ur Culture Indicated? Yes Urine Glucose Negative 06/06/23 12:00 WBC 10.67 RBC 3.61 L Hgb 10.3 L Hct 33.5 L MCV 93 MCH 28.5 MCHC 30.7 L RDW 16.0 H Plt Count 163 MPV 11.6 H Immature Gran % 0.3 Neutrophils % 80.2 Lymphocytes % 8.9 Monocytes % 7.8 Eosinophils % 2.1 Basophils % 0.7 Nucleated RBC % 0.0 Absolute Neutrophils 8.56 H Absolute Lymphocytes 0.95 L Absolute Monocytes 0.83 H Absolute Eosinophils 0.22 Absolute Basophils 0.08 ESR 54 H D-Dimer 3214 H VBG Lactate 1.4 Sodium 141 Potassium 4.6 Chloride 106 Carbon Dioxide 27.3 Anion Gap 7.7 BUN 56 H Creatinine 2.4 H Est GFR (CKD-EPI 2020) 20.04 Glucose 54 L Calcium 9.5 Magnesium 1.7 L Total Bilirubin 0.4 AST 33 ALT 26 Alkaline Phosphatase 97 Troponin I < 50 C-Reactive Protein 0.69 H NT-Pro-B Natriuret Pep 2393 H Total Protein 7.3 Albumin 2.8 L Lipase 46 Urine Color Urine Clarity Urine pH Ur Specific [place] Urine Protein Urine Ketones Urine Blood Urine Nitrite Urine Bilirubin Urine Urobilinogen Ur Leukocyte Esterase Urine RBC Urine WBC Ur Epithelial Cells Urine Crystals Urine Bacteria Urine Casts Urine Mucus Ur Culture Indicated? Urine Glucose 06/06/23 19:00 Urine - Reflex from Urine Culture - Pending Preliminary micro results at discharge 06/06/23 19:00 Urine Culture - Pending Urine - Reflex from [facility] All Active Problems (Updated 06/06/23 @ 16:59 by ARVIND Mckeon) Pneumonia (Acute) Pericardial effusion (Acute) Post herpetic neuralgia (Acute) Mass of right lung (Acute) Narrow complex tachycardia (Acute) Diabetes mellitus (Chronic) Renal mass (Acute) Aortic stenosis (Chronic) GERD (gastroesophageal reflux disease) (Chronic) Chronic kidney disease, stage 4 (severe) (Acute) Hyperlipidemia (Acute) HTN (hypertension) with goal to be determined (Acute) Medical History (Updated 06/06/23 @ 16:59 by ARVIND Mckeon) GI bleed Depressed Other abnormalities of gait and mobility Muscle weakness Osteoarthritis Anemia due to CKD Major depressive disorder PTSD (post-traumatic stress disorder) Anxiety Type 2 diabetes mellitus Surgical History (Updated 02/05/23 @ 21:18 by Josemanuel Humphreys) S/P hysterectomy S/P cholecystectomy Family History (Updated 02/05/23 @ 21:20 by Josemanuel Humphreys) Mother , age 69, also had aortic valve replacement Heart disease Social History (Updated 02/05/23 @ 21:21 by Josemanuel Humphreys) Smoking/Tobacco Use Status: Never Smoking risk assessment performed?: Yes Alcohol Intake: never Drug use: Never Substance use type: does not use Housing: residential Do you feel safe at home: Yes Do you feel safe in your relationship?: Yes Additional Social history: Living at [facility] after living in [facility] for many years Has 4 sons and one daughter. Time Spent with Patient Time Spent with Patient: <45 minutes Time was spent: preparing to see the patient(eg.review tests), obtaining and/or reviewing separately otained hiistory, ordering medications,tests, procedures, indepentently interpreting results and counseling the patient
== END 2023-06-07 12:25 | disposition swing bed (61) ==
LOC: ER 16:30 → MS 16:54
PROVIDERS: Nurse Practitioner Acute Care; Admitting Provider Family Medicine; Emergency Provider Physician Assistant; PCP Family Medicine; Visit Provider Family Medicine
DX: J18.9 Pneumonia, unspecified organism (principal); E11.22 Type 2 diabetes mellitus with diabetic chronic kidney disease; I12.9 Hypertensive chronic kidney disease with stage 1 through stage 4 chronic kidney disease, or unspecified chronic kidney disease; N18.4 Chronic kidney disease, stage 4 (severe); I35.0 Nonrheumatic aortic (valve) stenosis; E78.5 Hyperlipidemia, unspecified; K21.9 Gastro-esophageal reflux disease without esophagitis; R91.1 Solitary pulmonary nodule; B02.29 Other postherpetic nervous system involvement; R00.0 Tachycardia, unspecified; D64.9 Anemia, unspecified; Z79.4 Long term (current) use of insulin
CPT/HCPCS: 00123; 36415; 36416; 71275; 80048; 80053; 82962; 83690; 85652; 87077; 96361; 96365; 96366; 96372; 99285; 74174; 81003; 81015; 83605; 83735; 83880; 84484; 85025; 85379; 86140; 87086; 87186; 99223; 99238; G0378; J0696; J1815; J3490

== ENCOUNTER 2023-06-09 16:10 | Outpatient (REF) | payer MEDICARE, MEDICAID, SELFPAY ==
[2023-06-09 14:18] LABS: Abs Immature Grans 0.01 10^3/uL (0.0-0.06); Absolute Basophil Count 0.07 10^3/uL (0.0-0.2); Absolute Eosinophil Count 0.34 10^3/uL (0.0-0.7); Absolute Lymphocyte Count 1.12 10^3/uL (1.2-3.4); Absolute Neutrophil Count 2.86 10^3/uL (1.2-6.7); Basophils % 1.4; Eosinophils % 6.9; HCT 31.4 % (36.0-46.0); HGB 9.5 g/dL (11.2-15.7); Immature Grans % 0.2; Lymphocytes % 22.9; MCH 28.3 pg (27.0-33.0); MCHC 30.3 % (32.0-36.0); MCV 94 fL (80-95); Monocytes % 10.2; Neutrophils % 58.4; Platelet Count 160 10^3/uL (130-400); RBC 3.36 10^6/uL (3.93-5.22); RDW 16.2 % (11.7-14.6); RDW-SD 55.7 fL
[2023-06-09 14:29] LABS: ALT 18 U/L (14-59); AST 17 U/L (15-37); Albumin 2.7 g/dL (3.4-5.0); Alkaline Phosphatase 91 U/L (46-116); Anion Gap 9.9 mmol/L (3-11); BUN 46 mg/dL (7-18); Bilirubin, Total 0.3 mg/dL (0.2-1.0); CO2 26.1 mmol/L (21.0-32.0); CREATININE 2.3 mg/dL (0.55-1.02); Calcium 9.5 mg/dL (8.5-10.1); Chloride 107 mmol/L (98-107); Estimated GFR 21.09 (mL/min/1.73m2); Glucose 55 mg/dL (74-106); Potassium 4.3 mmol/L (3.5-5.1); Sodium 143 mmol/L (136-145); Total Protein 6.3 g/dL (6.4-8.2)
== END 2023-06-09 16:11 | disposition home or self-care (01) ==
LOC: LBN 16:10
PROVIDERS: PCP Family Medicine; Visit Provider Family Medicine
DX: J18.9 Pneumonia, unspecified organism (principal); E11.9 Type 2 diabetes mellitus without complications; N18.4 Chronic kidney disease, stage 4 (severe)
CPT/HCPCS: 80053; 85025

== ENCOUNTER 2023-10-11 11:40 | Outpatient (REF) | payer MEDICARE, MEDICAID, SELFPAY ==
[2023-10-11 08:52] LABS: Anion Gap 6.1 mmol/L (3-11); BUN 54 mg/dL (7-18); CO2 29.9 mmol/L (21.0-32.0); CREATININE 2.3 mg/dL (0.55-1.02); Calcium 8.9 mg/dL (8.5-10.1); Chloride 106 mmol/L (98-107); Estimated GFR 21.09 (mL/min/1.73m2); Glucose 215 mg/dL (74-106); Potassium 5.1 mmol/L (3.5-5.1); Sodium 142 mmol/L (136-145)
[2023-10-11 08:57] LABS: Hemoglobin A1C 6.6 % (<5.7)
== END 2023-10-11 11:41 | disposition home or self-care (01) ==
LOC: LBN 11:40
PROVIDERS: PCP Family Medicine; Visit Provider Family Medicine
DX: E11.9 Type 2 diabetes mellitus without complications (principal); E87.1 Hypo-osmolality and hyponatremia; N18.4 Chronic kidney disease, stage 4 (severe)
CPT/HCPCS: 80048; 83036

== ENCOUNTER → 2023-10-28 08:25 | Outpatient (BNVA) | payer MEDICARE, MEDICAID, SELFPAY | PROVIDERS: PCP Family Medicine; Referring Provider Family Medicine; Visit Provider Nurse Practitioner Adult Health | DX: G43.009 Migraine without aura, not intractable, without status migrainosus (principal); G43.109 Migraine with aura, not intractable, without status migrainosus | CPT/HCPCS: 64405; 99215 ==

== ENCOUNTER 2023-11-30 15:44 | Outpatient (REF) | payer MEDICARE, MEDICAID, SELFPAY ==
[2023-11-30 15:50] LABS: Hemoglobin A1C 7.2 % (<5.7)
== END 2023-11-30 15:45 | disposition home or self-care (01) ==
LOC: LBN 15:44
PROVIDERS: PCP Family Medicine; Visit Provider Family Medicine
DX: E11.9 Type 2 diabetes mellitus without complications (principal)
CPT/HCPCS: 83036

== ENCOUNTER 2023-12-19 15:39 | Outpatient (REF) | payer MEDICARE, MEDICAID, SELFPAY ==
[2023-12-19 16:05] LABS: Abs Immature Grans 0.02 10^3/uL (0.0-0.06); Absolute Basophil Count 0.07 10^3/uL (0.0-0.2); Absolute Eosinophil Count 0.29 10^3/uL (0.0-0.7); Absolute Lymphocyte Count 1.48 10^3/uL (1.2-3.4); Absolute Monocyte Count 0.49 10^3/uL (0.1-0.8); Absolute Neutrophil Count 3.66 10^3/uL (1.2-6.7); Basophils % 1.2 %; Eosinophils % 4.8 %; HCT 35.2 % (36.0-46.0); HGB 10.7 g/dL (11.2-15.7); Immature Grans % 0.3 %; Lymphocytes % 24.6 %; MCH 30.6 pg (27.0-33.0); MCHC 30.4 % (32.0-36.0); MCV 101 fL (80-95); MPV 11.9 fL (8.0-11.0); Monocytes % 8.2 %; Neutrophils % 60.9 %; Platelet Count 172 10^3/uL (130-400); RDW 15.2 % (11.7-14.6); RDW-SD 56.2 fL; WBC 6.01 10^3/uL (4.4-10.8)
[2023-12-19 16:13] LABS: ALT 13 U/L (14-59); AST 14 U/L (15-37); Albumin 2.9 g/dL (3.4-5.0); Alkaline Phosphatase 110 U/L (46-116); Anion Gap 10.1 mmol/L (3-11); BUN 60 mg/dL (7-18); Bilirubin, Total 0.26 mg/dL (0.2-1.0); CO2 26.9 mmol/L (21.0-32.0); CREATININE 2.3 mg/dL (0.55-1.02); Calcium 9.1 mg/dL (8.5-10.1); Chloride 107 mmol/L (98-107); Estimated GFR 21.09 (mL/min/1.73m2); Glucose 73 mg/dL (74-106); Potassium 4.9 mmol/L (3.5-5.1); Sodium 144 mmol/L (136-145); Total Protein 6.8 g/dL (6.4-8.2)
== END 2023-12-19 15:40 | disposition home or self-care (01) ==
LOC: LBN 15:39
PROVIDERS: PCP Family Medicine; Visit Provider Family Medicine
DX: I10 Essential (primary) hypertension (principal); E11.9 Type 2 diabetes mellitus without complications; N39.0 Urinary tract infection, site not specified; M62.81 Muscle weakness (generalized)
CPT/HCPCS: 80053; 85025

== ENCOUNTER → 2023-12-24 00:29 | Outpatient (CLI) | payer MEDICARE, MEDICAID, SELFPAY ==
--- NOTE | 2023-12-24 09:30 | DI.RAD_ITS ---
Exam(s) XR CHEST 2V PA LATERAL EXAM: XR CHEST 2V PA LATERAL CLINICAL HISTORY: Hemoptysis, R04.2. TECHNIQUE: 2D digital imaging was performed. COMPARISON: CT CT THORAX ABD/PEL CTA from 06/06/2023 FINDINGS: 2 views: Heart size is upper normal. Calcified mitral valve annulus. The mediastinum is not widened. COPD findings. Mild elevation left hemidiaphragm. Mild increased markings noted in both lung bases-lower lobes bilaterally, bordering on developing inf iltrates. There are no pleural effusions. No pulmonary edema. IMPRESSION: Suspicious for possible developing infiltrates in both lung bases. DATA REPOSITORY: RADIATION DOSE DELIVERED:
== END ==
PROVIDERS: PCP Family Medicine; Visit Provider Family Medicine
DX: R04.2 Hemoptysis (principal)
CPT/HCPCS: 71046

== ENCOUNTER 2024-02-07 20:24 | Outpatient (REF) | payer MEDICARE, MEDICAID, SELFPAY ==
[2024-02-07 19:07] LABS: Bilirubin Negative (Negative); Blood Trace-intact (Negative); Clarity Sl Cloudy (Clear); Glucose Negative (Negative); Ketones Negative (Negative); Leukocyte Esterase Small (Negative); Nitrite Positive (Negative); Urobilinogen 0.2 mg/dL (Up to 0.2); pH 6.5 (5-8)
[2024-02-07 19:24] LABS: Bacteria Many HPF (Negative); C & S Indicated? C&S Done As Ordered; Casts Negative LPF (Negative); Crystals Negative HPF (Negative); Epithelial Cells Rare HPF (Negative); Mucus Trace (Negative); RBC 0-2 HPF (0-2); WBC >50 HPF (0-5)
== END 2024-02-07 20:25 | disposition home or self-care (01) ==
LOC: LBN 20:24
PROVIDERS: PCP Family Medicine; Visit Provider Family Medicine
DX: N39.0 Urinary tract infection, site not specified (principal); B96.29 Other Escherichia coli [E. coli] as the cause of diseases classified elsewhere; R82.89 Other abnormal findings on cytological and histological examination of urine
CPT/HCPCS: 87077; 81003; 81015; 87086; 87186

== ENCOUNTER 2024-02-14 08:44 | Outpatient (CLI) | payer MEDICARE, MEDICAID, SELFPAY | END 2024-02-14 08:45 | disposition home or self-care (01) | PROVIDERS: PCP Family Medicine; Visit Provider Family Medicine | DX: I47.10 Supraventricular tachycardia, unspecified (principal) | CPT/HCPCS: 93270 ==

== ENCOUNTER 2024-02-19 18:41 | Emergency (ER) | payer MEDICARE, MEDICAID, SELFPAY ==
[2024-02-19] VITALS (103 sets, daily range): BP systolic 178–205; BP diastolic 48–95; PULSE 72–79; RESP 14–24; TEMP 36.3–37; O2SAT 91–98
--- NOTE | 2024-02-19 18:15 | RT.EKG_ITS ---
APPROVED REPORT Exam: Resting ECG Reason for Exam: sob Patient Location: E HR:79 bpm ECG Measurements Heart Rate 79 AXIS NV 156 P 52 QRSd 99 QRS -18 QT 403 T 77 QTc 462 Conclusion Sinus rhythm...normal P axis, V-rate 60- 99 LVH with secondary repolarization abnormality...multi-LVH criteria, abnrm ST-T
--- NOTE | 2024-02-19 18:52 | ED.GENADUL_ITS ---
Discharge Plan Disposition Patient Disposition: [facility] Condition: Stable Discharge Details Clinical Impression: CHF (congestive heart failure), Pneumonia Primary Care Provider: Pilar Rogers ED Provider: Emilie Bush [place] Meds and New Rx's Prescriptions: New cefpodoxime 200 mg tablet 200 mg PO BID 7 Days Qty: 14 0RF Rx Instructions: must administer with a meal/food doxycycline hyclate 100 mg capsule 100 mg PO BID 7 Days Qty: 14 0RF Rx Instructions: Take 1 tablet twice daily x 7 days furosemide [Lasix] 20 mg tablet 20 mg PO DAILY 30 Days Qty: 30 0RF Rx Instructions: Take one tablet daily in am Continued methol methyl salicylate liniments 10-15% topical selenium sulfide external lotion topical triamcinolone acetonide 0.1 % cream 1 applic topical DAILY bupivacaine (PF) 0.25 % (2.5 mg/mL) solution 2 ml SQ ONB ONCE Qty: 2 0RF lidocaine (PF) 20 mg/mL (2 %) solution 40 mg SQ ONB ONCE Qty: 2 0RF acetaminophen [Tylenol Extra Strength] 500 mg tablet 1,000 mg PO BID aspirin [Adult Aspirin Regimen] 81 mg tablet,delayed release (DR/EC) 81 mg PO DAILY ferrous gluconate 240 mg (27 mg iron) tablet 240 mg PO DAILY insulin lispro [Humalog KwikPen Insulin] 100 unit/mL insulin pen 7 unit subcut QAC melatonin 3 mg capsule 3 mg PO HS memantine 10 mg tablet 10 mg PO HS polyethylene glycol 3350 17 gram/dose powder 17 g PO DAILY Rx Instructions: *and additional 17gm PO daily PRN nitroglycerin [Nitrostat] 0.4 mg tablet, sublingual 0.4 mg sublingual Q5M PRN Rx Instructions: do not exceed 3 doses per episode pantoprazole [Protonix] 40 mg tablet,delayed release (DR/EC) 40 mg PO DAILY venlafaxine 150 mg capsule,extended release 24hr 150 mg PO DAILY Levemir U-100 Insulin 100 unit/mL solution 15 unit subcut QHS magnesium oxide 400 mg magnesium capsule 400 mg PO BID gabapentin 300 mg Capsule 300 mg PO BID Qty: 0 0RF Excedrin Extra Strength 250-250-65 mg tablet 2 tab PO DAILY PRN PRN metoprolol succinate 100 mg tablet extended release 24 hr 100 mg PO DAILY Patient Comments: takes at HS Discharge Instructions Instructions: Pneumonia, Adult ED, Heart Failure ED Additional Instructions: I do suspect that you are retaining some fluid due to enlargement of your heart. Take the Lasix 20 mg daily. Please discuss this with your primary care provider. The CT also shows pneumonia. You are given 2 different antibiotics please take this with yogurt or a probiotic. Follow up with primary care provider in 3-5 days. Return to ED sooner if any worsening or concerns. Please take Tylenol or Ibuprofen with food every 4-6 hours as needed for pain and swelling. Referrals: Pilar Rogers MD [Primary Care Provider] - 3 days HPI General Mode of arrival: EMS . Date/Time Provider Initiated Documentation: 02/19/24 18:44 . Limitations to Documentation: no limitations . Information obtained by: patient, EMS, RN notes reviewed and old records reviewed . HPI Narrative: 78-year-old female presents to the ER via EMS [facility]. She has a complaint of increased shortness of breath over the last couple of days. She reports hemoptysis with productive cough, chest congestion Rales and rhonchi to bilateral lower bases. She has noticed increased edema to her lower extremities. She did have an albuterol neb prior to arrival. She was 88 to 90% on room air on scene. Recent pneumonia x 2 per RN report. She is alert and oriented x 3. She does have a past medical history type 2 diabetes, hyperlipidemia, hypertension, chronic kidney disease stage IV, GERD, aortic stenosis and pericardial effusion. Related Data Home Medications ?Medication ?Instructions ?Recorded ?Confirmed acetaminophen 500 mg tablet 1,000 mg PO BID 01/13/23 10/28/23 (Tylenol Extra Strength) aspirin 81 mg tablet,delayed 81 mg PO DAILY 01/13/23 10/28/23 release (Adult Aspirin Regimen) ferrous gluconate 240 mg (27 mg 240 mg PO DAILY 01/13/23 10/28/23 iron) tablet insulin lispro 100 unit/mL 7 unit subcut [facility] 01/13/23 10/28/23 subcutaneous pen (Humalog KwikPen (U-100) Insulin) melatonin 3 mg capsule 3 mg PO HS 01/13/23 10/28/23 memantine 10 mg tablet 10 mg PO HS 01/13/23 10/28/23 nitroglycerin 0.4 mg sublingual 0.4 mg sublingual Q5M PRN 01/13/23 10/28/23 tablet (Nitrostat) pantoprazole 40 mg tablet,delayed 40 mg PO DAILY 01/13/23 10/28/23 release (Protonix) polyethylene glycol 3350 17 17 g PO DAILY 01/13/23 10/28/23 gram/dose oral powder venlafaxine 150 mg 150 mg PO DAILY 01/13/23 10/28/23 capsule,extended release 24 hr insulin detemir U-100 100 unit/mL 15 unit subcut QHS 01/19/23 10/28/23 subcutaneous solution (Levemir U-100 Insulin) magnesium oxide 400 mg PO BID 01/19/23 10/28/23 gabapentin 300 mg capsule 300 mg PO BID #0 caps 02/06/23 10/28/23 [id number] 250 2 tab PO DAILY PRN PRN 06/06/23 10/28/23 mg-250 mg-65 mg tablet (Excedrin Extra Strength) metoprolol succinate 100 mg 100 mg PO DAILY 06/06/23 10/28/23 tablet,extended release 24 hr methol methyl salicylate liniments topical 10/28/23 10/28/23 10-15% selenium sulfide external lotion topical 10/28/23 10/28/23 triamcinolone acetonide 0.1 % 1 applic topical DAILY 10/28/23 10/28/23 topical cream cefpodoxime 200 mg tablet 200 mg PO BID Pneumonia 7 days #14 02/19/24 tabs doxycycline hyclate 100 mg capsule 100 mg PO BID Pneumonia 7 days #14 02/19/24 caps furosemide 20 mg tablet (Lasix) 20 mg PO DAILY CHF 30 days #30 tabs 02/19/24 Previous Rx's ?Medication ?Instructions ?Recorded gabapentin 300 mg capsule 300 mg PO BID #0 caps 02/06/23 cefpodoxime 200 mg tablet 200 mg PO BID Pneumonia 7 days #14 02/19/24 tabs doxycycline hyclate 100 mg capsule 100 mg PO BID Pneumonia 7 days #14 02/19/24 caps furosemide 20 mg tablet (Lasix) 20 mg PO DAILY CHF 30 days #30 tabs 02/19/24 Allergies Allergy/AdvReac Type Severity Reaction Status Date / Time azithromycin Allergy Unknown Other (See Verified 02/19/24 18:47 Comment) codeine Allergy Unknown Other (See Verified 02/19/24 18:47 Comment) General Stated Complaint: SOB RENA: 3 Review of Systems All systems reviewed & are unremarkable except as noted in HPI and below Cardiovascular Cardiovascular: Reports as per HPI (She is currently wearing a Holter monitor which has been in place since Wed), Reports pedal edema and Reports leg edema Respiratory Respiratory: Reports change in phlegm color, Reports cough and Reports hemoptysis Exam Narrative Exam Narrative: Constitutional: Alert and oriented x3. Appears stated age. Normal body habitus. Head: Normocephalic, no trauma. Eyes: Pupils PERRL, Red reflex noted, EOM's intact. Eyelids symmetrical without lesions, discharge, or swelling. ENT: Bilateral TM's WNL, External ear normal to inspection, no mastoid TTP, s welling, or erythema, Nasal turbinates WNL, no nasal discharge. Normal dentition, Posterior pharynx WNL, no exudate. Chest: RRR, Normal S1, S2, distal pulses intact. Resp: Lungs rhonchi and rales in the bases bilaterally, she does have a barrel chest, no tachypnea does not appear to be in respiratory distress. Abdomen: Soft, non-distended, Normoactive bowel sounds all 4 quads. Musculoskeletal: Unable to assess gait, lower extremities do show 2+ pitting edema bilaterally, moves all 4 extremities without difficulty. Skin: No suspicious rashes or lesions. Capillary refill less than 2 sec. Neurologic: Cranial nerves II-XII intact. Alert and oriented x 3. Motor: No deficits noted. Sensory: Intact bilaterally all 4 extremities. Hematologic/Lymphatic: No ecchymosis, no lymphadenopathy. Course Vital Signs Vital signs: Vital Signs Temperature 36.3 C L 02/19/24 18:38 Pulse 79 02/19/24 18:38 Respiratory Rate 20 02/19/24 18:38 Blood Pressure 189/81 H 02/19/24 18:38 Pulse Oximetry 94 02/19/24 18:38 Temperature 36.3 C L 02/19/24 18:38 Temperature Source Skin 02/19/24 18:38 Pulse 79 02/19/24 18:38 Respiratory Rate 20 02/19/24 18:38 Blood Pressure 189/81 H 02/19/24 18:38 Pulse Oximetry 94 02/19/24 18:38 Oxygen Delivery Method Room Air 02/19/24 18:38 Oxygen Flow Rate 0 02/19/24 18:38 Pain Level 7 02/19/24 18:38 Comment throat pain from coughing 02/19/24 18:38 Medical Decision Making 78-year-old female presents to the ER via EMS [facility]. She has a complaint of increased shortness of breath over the last couple of days. She reports hemoptysis with productive cough, chest congestion Rales and rhonchi to bilateral lower bases. She has noticed increased edema to her lower extremities. She did have an albuterol neb prior to arrival. She was 88 to 90% on room air on scene. Recent pneumonia x 2 per RN report. She is alert and oriented x 3. She does have a past medical history type 2 diabetes, hy perlipidemia, hypertension, chronic kidney disease stage IV, GERD, aortic stenosis and pericardial effusion. Cardiac workup ordered including CBC CMP, Pro-Gabriel, CRP, D-dimer troponin chest x-ray and EKG. EKG was reviewed by Dr. Cho ER attending, old EKG available for review, please see official report. CT shows bilateral pneumonia most on the right lower lobe, I do suspect CHF exacerbation as well. Patient was given 20 of Lasix here in the department. Procalcitonin 0.2 which is not indicative of a bacterial infection however I will treat her due to the CT results and her symptoms. She does have a left- sided pleural effusion but it is not changed since previous exam. will give Cefpodoxime and Doxyxycline and 20mg Lasix once daily. Discussed home care with patient who verbalized understanding. She reports that she feels comfortable being discharged back to [facility] rehab. She is alert and oriented and pleasant and conversive vital signs of remained stable. Patient to be transported back to [facility] via EMS. This text was generated using [employer] system, please disregard any oddities of phrase or misspellings. Medical Records Medical records reviewed: Yes I reviewed the patient's medical records. Imaging Data Radiologic Study: Imaging: X-Ray Radiologist's impression: [facility] report: COMPARISON: CR XR CHEST 2V PA LATERAL 12/24/2023 9:20 AM FINDINGS: Lungs: There is hazy airspace opacity at the right lung base, new since previous study. Minimal increased airspace opacity noted at the left lung base medially. Pleural spaces: Unremarkable. No pleural effusion. No pneumothorax. Heart/Mediastinum: Mild cardiomegaly. Diaphragm: There is mild elevation of the left hemidiaphragm. Bones/joints: Unremarkable. IMPRESSION: Bilateral airspace disease, right worse than left. Concern for early pneumonia versus atelectasis. Radiologic Study #2: Imaging: CT Scan Radiologist's impression: IMPRESSION: Bilateral pneumonia most noted in the right lower lobe with mild right upper lobe involvement. Thank you for allowing us to participate in the care of your patient. Dictated and Authenticated by: Iris Stearns MD Lab Data Lab results reviewed: Yes I reviewed the patient's lab results. Labs: Laboratory Tests Range/Units 02/19/24 02/19/24 19:05 19:52 WBC (4.4-10.8) 10^3/uL 6.83 RBC (3.93-5.22) 10^6/uL 3.48 L Hgb (11.2-15.7) g/dL 10.7 L Hct (36.0-46.0) % 35.1 L MCV (80-95) fL 101 H MCH (27.0-33.0) pg 30.7 MCHC (32.0-36.0) % 30.5 L RDW (11.7-14.6) % 14.4 Plt Count (130-400) 10^3/uL 155 MPV (8.0-11.0) fL 11.3 H Immature Gran % % 0.1 Neutrophils % % 63.9 Lymphocytes % % 21.2 Monocytes % % 9.1 Eosinophils % % 4.7 Basophils % % 1.0 Nucleated RBC % (0.0-0.3) % 0.0 Absolute Neutrophils (1.2-6.7) 10^3/uL 4.36 Absolute Lymphocytes (1.2-3.4) 10^3/uL 1.45 Absolute Monocytes (0.1-0.8) 10^3/uL 0.62 Absolute Eosinophils (0.0-0.7) 10^3/uL 0.32 Absolute Basophils (0.0-0.2) 10^3/uL 0.07 D-Dimer (<500) ng/mlFEU 2003 H Sodium (136-145) mmol/L 141 Potassium (3.5-5.1) mmol/L 5.2 H Chloride (98-107) mmol/L 105 Carbon Dioxide (21.0-32.0) mmol/L 29.1 Anion Gap (3-11) mmol/L 6.9 BUN (7-18) mg/dL 43 H Creatinine (0.55-1.02) mg/dL 2.2 H Est GFR (CKD-EPI 2020) (mL/min/1.73m2) 22.25 Glucose (74-106) mg/dL 240 H Calcium (8.5-10.1) mg/dL 9.2 Magnesium (1.8-2.4) mg/dL 1.9 Total Bilirubin (0.2-1.0) mg/dL 0.19 L AST (15-37) U/L 12 L ALT (14-59) U/L 11 L Alkaline Phosphatase (46-116) U/L 118 H Troponin I (<or=51) ng/L 27 C-Reactive Protein (<or=0.5) mg/dL 3.32 H NT-Pro-B Natriuret Pep (<300) pg/mL 5588 H Total Protein (6.4-8.2) g/dL 7.1 Albumin (3.4-5.0) g/dL 2.7 L Procalcitonin ng/mL 0.2 COVID-19 Source Nasopharynx SARS-CoV-2 (PCR) (Negative) Negative Influenza Type A (PCR) (Negative) Negative Influenza Type B (PCR) (Negative) Negative RSV (PCR) (Negative) Negative Quality:SDOH Health Related Social Needs: No Data to Display PFSH All Active Problems (Updated 02/19/24 @ 21:54 by Emilie Bush, MANISH) Pneumonia (Acute) CHF (congestive heart failure) (Chronic) Migraine headache with aura (Acute) Migraine headache without aura (Acute) Pneumonia (Acute) Pericardial effusion (Acute) Post herpetic neuralgia (Acute) Mass of right lung (Acute) Narrow complex tachycardia (Acute) Diabetes mellitus (Chronic) Renal mass (Acute) Aortic stenosis (Chronic) GERD (gastroesophageal reflux disease) (Chronic) Chronic kidney disease, stage 4 (severe) (Acute) Hyperlipidemia (Acute) HTN (hypertension) with goal to be determined (Acute) Medical History GI bleed Depressed Other abnormalities of gait and mobility Muscle weakness Osteoarthritis Anemia due to CKD Major depressive disorder PTSD (post-traumatic stress disorder) Anxiety Type 2 diabetes mellitus Surgical History S/P hysterectomy S/P cholecystectomy Family History Mother , age 69, also had aortic valve replacement Heart disease Social History Smoking/Tobacco Use Status: Never Smoking risk assessment performed?: Yes Alcohol Intake: never Drug use: Never Substance use type: does not use Housing: detention Do you feel safe at home: Yes Do you feel safe in your relationship?: Yes Additional Social history: Living at [facility] after living in [facility] for many years Has 4 sons and one daughter.
[2024-02-19 19:18] LABS: Abs Immature Grans 0.01 10^3/uL (0.0-0.06); Absolute Basophil Count 0.07 10^3/uL (0.0-0.2); Absolute Eosinophil Count 0.32 10^3/uL (0.0-0.7); Absolute Lymphocyte Count 1.45 10^3/uL (1.2-3.4); Absolute Monocyte Count 0.62 10^3/uL (0.1-0.8); Absolute Neutrophil Count 4.36 10^3/uL (1.2-6.7); Eosinophils % 4.7 %; HCT 35.1 % (36.0-46.0); HGB 10.7 g/dL (11.2-15.7); Immature Grans % 0.1 %; Lymphocytes % 21.2 %; MCH 30.7 pg (27.0-33.0); MCHC 30.5 % (32.0-36.0); MCV 101 fL (80-95); MPV 11.3 fL (8.0-11.0); Monocytes % 9.1 %; Neutrophils % 63.9 %; Platelet Count 155 10^3/uL (130-400); RBC 3.48 10^6/uL (3.93-5.22); RDW 14.4 % (11.7-14.6); RDW-SD 53.4 fL; WBC 6.83 10^3/uL (4.4-10.8)
[2024-02-19 19:31] LABS: C-Reactive Protein 3.32 mg/dL (<or=0.5)
[2024-02-19 19:38] LABS: AST 12 U/L (15-37); Albumin 2.7 g/dL (3.4-5.0); Alkaline Phosphatase 118 U/L (46-116); Anion Gap 6.9 mmol/L (3-11); BUN 43 mg/dL (7-18); Bilirubin, Total 0.19 mg/dL (0.2-1.0); CO2 29.1 mmol/L (21.0-32.0); CREATININE 2.2 mg/dL (0.55-1.02); Calcium 9.2 mg/dL (8.5-10.1); Chloride 105 mmol/L (98-107); Estimated GFR 22.25 (mL/min/1.73m2); Glucose 240 mg/dL (74-106); Magnesium 1.9 mg/dL (1.8-2.4); NT-proBNP 5588 pg/mL (<300); Potassium 5.2 mmol/L (3.5-5.1); Sodium 141 mmol/L (136-145); Total Protein 7.1 g/dL (6.4-8.2); Troponin I 27 ng/L (<or=51)
--- NOTE | 2024-02-19 19:43 | DI.RAD_ITS ---
Exam(s) XR PORTABLE CHEST AP EXAM: XR PORTABLE CHEST AP CLINICAL HISTORY: SOB TECHNIQUE: 2D digital imaging was performed. COMPARISON: CT CT CHEST/ABD/PEL WO from 02/05/[address] THORAX ABD/PEL CTA from 06/06/2023 CR XR CHEST 2V PA LATERAL from 12/24/2023 FINDINGS: Exam limited by under penetration. Poor pulmonary inflation. LUNGS: Right lower lobe infiltrate. Left lung base poorly evaluated. Some vascular prominence and i ncreased interstitial markings could indicate an element of CHF. HEART: Enlarged. AORTA: Normal diameter. BONES: Unremarkable for age. Soft tissues: Left hemidiaphragm mildly elevated, unchanged. Monitoring device anterior to chest. IMPRESSION: Right lower lobe infiltrate. Question of mild CHF. DATA REPOSITORY: RADIATION DOSE DELIVERED:
[2024-02-19 19:44] LABS: D-Dimer 2003 ng/mlFEU (<500)
--- NOTE | 2024-02-19 19:45 | DI.CT_ITS ---
Exam(s) CT CHEST WO EXAM: CT CHEST WO CLINICAL HISTORY: SOB, TECHNIQUE: Imaging Protocol: Axial computed tomography images with coronal and sagittal reformatted images were created and reviewed CONTRAST MATERIAL: Intravenous: Omnipaque 350 Contrast volume:structured data ml. COMPARISON: CT CT CHEST/ABD/PEL WO from 02/05/2023 CR,XR XR PORTABLE CHEST AP from 02/19/2024 FINDINGS: Pulmonary parenchyma: Right lower lobe pneumonia, occupying nearly the entire right lower lobe. Mild er infiltrates seen in the posterior right upper lobe. Minimally increased densities in the lingula. Infiltrate versus dependent changes at the right lung base. Mild patchy infiltrates in the right m iddle lobe. No dominant measurable mass. Tracheobronchial tree: No bronchiectasis or mucous plugging. Mediastinum and Kimberlee: Small calcified mediastinal and hilar lymph nodes. Pleura: Small left and trace right pleural effusions. No pneumothorax. Heart: The heart is moderately dilated. Mitral annulus heavily calcified. Calcifications at aortic root. Mild coronary artery calcifications are seen. Trace pericardial effusion. Aorta: Thoracic aorta non-dilated. Mild atherosclerotic changes. Pulmonary arteries: No gross evidence of emboli. Upper abdomen: No acute findings. Bones: Accentuation of the thoracic kyphosis but no evidence of compression fractures. Degenerat sheela changes in the spine. Soft tissues: Unremarkable. IMPRESSION: Dense consolidation of the right lower lobe. Milder infiltrates seen in right middle lobe, right upp er lobe as well as lingula and left lower lobe. Small bilateral pleural effusions. RADIATION DOSE DELIVERED: Total DLP DATA REPOSITORY: All CT scans at this facility are submitted to the National Radiology Data Registry (NRDR) Dose Index Registry (DIR) with the [employer] (ACR). RADIATION OPTIMIZATION: All CT scans at this facility use at least one of these dose optimization te chniques: automated exposure control; mA and/or kV adjustment per patient size (includes targeted exa ms where dose is matched to clinical indication); or iterative reconstruction.
[2024-02-19 19:48] LABS: ALT 11 U/L (14-59)
[2024-02-19 20:07] LABS: Procalcitonin 0.2 ng/mL
[2024-02-19 20:32] LABS: COVID-19 PCR Negative (Negative); Influenza A PCR Negative (Negative); Influenza B PCR Negative (Negative); RSV PCR Negative (Negative)
[2024-02-19 20:34] LABS: Source Nasopharynx
[2024-02-19] MEDS: Furosemide 20 MG/2 ML VIAL IVP (20:53)
--- NOTE | 2024-02-19 21:28 | DI.VRAD_ITS ---
PROCEDURE INFORMATION: Exam: XR Chest Exam date and time: 02/19/2024 7:40 PM Age: 78 years old Clinical indication: Shortness of breath; Patient HX: SOB TECHNIQUE: Imaging protocol: Radiologic exam of the chest. Views: 1 view. Other technique: Portable exam. COMPARISON: CR XR CHEST 2V PA LATERAL 12/24/2023 9:20 AM FINDINGS: Lungs: There is hazy airspace opacity at the right lung base, new since previous study. Minimal increased airspace opacity noted at the left lung base medially. Pleural spaces: Unremarkable. No pleural effusion. No pneumothorax. Heart/Mediastinum: Mild cardiomegaly. Diaphragm: There is mild elevation of the left hemidiaphragm. Bones/joints: Unremarkable. IMPRESSION: Bilateral airspace disease, right worse than left. Concern for early pneumonia versus atelectasis. Dictated and Authenticated by: Iris Stearns MD. Ordering:SORIN Phan MD
--- NOTE | 2024-02-19 21:36 | DI.VRAD_ITS ---
PROCEDURE INFORMATION: Exam: CT Chest Without Contrast; Diagnostic Exam date and time: 02/19/2024 8:18 PM Age: 78 years old Clinical indication: Shortness of breath; Patient HX: SOB TECHNIQUE: Imaging protocol: Diagnostic computed tomography of the chest without contrast. 3D rendering (Not supervised by radiologist): MIP and/or 3D reconstructed images were created by the technologist. Radiation optimization: All CT scans at this facility use at least one of these dose optimization techniques: automated exposure control; mA and/or kV adjustment per patient size (includes targeted exams where dose is matched to clinical indication); or iterative reconstruction. COMPARISON: CT THORAX ABD/PEL CTA 06/06/2023 2:21 PM FINDINGS: Lungs: There is moderately dense right lower lobe consolidation. There early left lower lobe opacities and mild right middle lobe and lingular involvement. There are some focal opacities in the right upper lobe. Pleural spaces: There is a small left pleural effusion, not significantly changed since previous exam. Heart: Mitral annulus calcification noted. Coronary arteries: Coronary artery calcifications/stents identified. Lymph nodes: Unremarkable. No enlarged lymph nodes. Vasculature: Unremarkable. No aortic aneurysm. Bones/joints: Unremarkable. No acute fracture. Soft tissues: Unremarkable. Other findings: Mediastinal and hilar calcifications again seen. IMPRESSION: Bilateral pneumonia most noted in the right lower lobe with mild right upper lobe involvement. Dictated and Authenticated by: Iris Stearns MD. Ordering:SORIN Phan MD
[2024-02-19] MEDS: Doxycycline Hyclate 100 MG CAP PO (21:54)
[2024-02-19] MEDS: Doxycycline Hyclate 100 MG, 2 CAPS/BTL PO (21:54)
[2024-02-19] MEDS: Cefpodoxime 200 MG TAB PO (21:54)
== END 2024-02-19 22:05 | disposition skilled nursing facility (03) ==
PROVIDERS: Emergency Provider Registered Nurse Emergency; PCP Family Medicine
DX: J18.9 Pneumonia, unspecified organism (principal); E11.22 Type 2 diabetes mellitus with diabetic chronic kidney disease; I13.0 Hypertensive heart and chronic kidney disease with heart failure and stage 1 through stage 4 chronic kidney disease, or unspecified chronic kidney disease; N18.4 Chronic kidney disease, stage 4 (severe); I50.9 Heart failure, unspecified; E78.5 Hyperlipidemia, unspecified; Z79.4 Long term (current) use of insulin; Z79.82 Long term (current) use of aspirin
CPT/HCPCS: 71250; 80053; 84145; 87637; 93005; 96374; 99285; 71045; 83735; 83880; 84484; 85025; 85379; 86140; 93010; 99284; J1941

== ENCOUNTER 2024-03-09 14:51 | Outpatient (REF) | payer MEDICARE, MEDICAID, SELFPAY ==
[2024-03-09 13:18] LABS: HCT 34.6 % (36.0-46.0); HGB 10.3 g/dL (11.2-15.7); MCH 29.9 pg (27.0-33.0); MCHC 29.8 % (32.0-36.0); MCV 101 fL (80-95); MPV 12.3 fL (8.0-11.0); Platelet Count 151 10^3/uL (130-400); RBC 3.44 10^6/uL (3.93-5.22); RDW 14.3 % (11.7-14.6); RDW-SD 52.6 fL; WBC 5.13 10^3/uL (4.4-10.8)
[2024-03-09 13:26] LABS: Anion Gap 6.4 mmol/L (3-11); BUN 55 mg/dL (7-18); CO2 33.6 mmol/L (21.0-32.0); CREATININE 2.3 mg/dL (0.55-1.02); Calcium 9.5 mg/dL (8.5-10.1); Chloride 104 mmol/L (98-107); Estimated GFR 21.09 (mL/min/1.73m2); Glucose 80 mg/dL (74-106); Magnesium 2.5 mg/dL (1.8-2.4); Potassium 4.6 mmol/L (3.5-5.1); Sodium 144 mmol/L (136-145)
[2024-03-09 14:04] LABS: Hemoglobin A1C 6.9 % (<5.7)
== END 2024-03-09 14:52 | disposition home or self-care (01) ==
LOC: LBN 14:51
PROVIDERS: PCP Family Medicine; Visit Provider Family Medicine
DX: E11.9 Type 2 diabetes mellitus without complications (principal)
CPT/HCPCS: 80048; 85027; 83036; 83735

== ENCOUNTER 2024-03-16 13:17 | Outpatient (CLI) | payer MEDICARE, MEDICAID, SELFPAY ==
--- NOTE | 2024-03-16 14:43 | W.CARDEVENT ---
Date of service: 03/16/24 Time of Service: 14:43 Cardiac Event Recorder Referring Provider:: Pilar Rogers Indications:: Supraventricular tachycardia Cardiac Event Note: This is a cardiac event monitor. Patient was monitored for 21 days Rhythm throughout was sinus with an average heart rate of 67. Minimum was 56, maximum 129 There were no significant ventricular dysrhythmias There were no significant supraventricular dysrhythmias. There was no atrial fibrillation, no high-grade AV block, no pauses greater than 3 seconds No symptoms were reported
== END 2024-03-16 13:18 | disposition home or self-care (01) ==
LOC: CARDOPNVT 13:17
PROVIDERS: PCP Family Medicine; Visit Provider Internal Medicine Cardiovascular Disease
DX: I47.10 Supraventricular tachycardia, unspecified (principal)
CPT/HCPCS: 93272

== ENCOUNTER 2024-05-22 18:37 | Outpatient (REF) | payer MEDICARE, MEDICAID, SELFPAY ==
[2024-05-22 16:59] LABS: Abs Immature Grans 0.03 10^3/uL (0.0-0.06); Absolute Basophil Count 0.07 10^3/uL (0.0-0.2); Absolute Eosinophil Count 0.24 10^3/uL (0.0-0.7); Absolute Lymphocyte Count 1.41 10^3/uL (1.2-3.4); Absolute Monocyte Count 0.55 10^3/uL (0.1-0.8); Absolute Neutrophil Count 3.16 10^3/uL (1.2-6.7); Basophils % 1.3 %; Eosinophils % 4.4 %; HCT 36.2 % (36.0-46.0); HGB 11.1 g/dL (11.2-15.7); Immature Grans % 0.5 %; Lymphocytes % 25.8 %; MCH 30.7 pg (27.0-33.0); MCHC 30.7 % (32.0-36.0); MCV 100 fL (80-95); MPV 12.2 fL (8.0-11.0); Monocytes % 10.1 %; Neutrophils % 57.9 %; Platelet Count 158 10^3/uL (130-400); RBC 3.61 10^6/uL (3.93-5.22); RDW 14.8 % (11.7-14.6); WBC 5.46 10^3/uL (4.4-10.8)
[2024-05-22 17:14] LABS: Hemoglobin A1C 6.8 % (<5.7); Iron 69 ug/dL (50-170); Total Iron Binding Capacity 272 ug/dL (250-450); Transferrin Sat 25 % (15-50)
[2024-05-22 17:40] LABS: ALT 8 U/L (14-59); AST 15 U/L (15-37); Alkaline Phosphatase 115 U/L (46-116); BUN 72 mg/dL (7-18); Bilirubin, Total 0.17 mg/dL (0.2-1.0); CREATININE 2.6 mg/dL (0.55-1.02); Calcium 8.9 mg/dL (8.5-10.1); Chloride 106 mmol/L (98-107); Estimated GFR 18.09 (mL/min/1.73m2); Folate 9.7 ng/mL (8.6-20.0); Glucose 74 mg/dL (74-106); Magnesium 1.8 mg/dL (1.8-2.4); Potassium 5.2 mmol/L (3.5-5.1); Sodium 143 mmol/L (136-145); Vitamin B12 1222 pg/mL (193-986); Vitamin D 25 Total 10.5 ng/mL (30-100)
== END 2024-05-22 18:38 | disposition home or self-care (01) ==
LOC: LBN 18:37
PROVIDERS: PCP Family Medicine; Visit Provider Family Medicine
DX: E11.9 Type 2 diabetes mellitus without complications (principal)
CPT/HCPCS: 80053; 82306; 82607; 82746; 83036; 83540; 83550; 83735; 85025

== ENCOUNTER 2024-10-29 14:05 | Outpatient (REF) | payer MEDICARE, MEDICAID, SELFPAY ==
[2024-10-29 14:23] LABS: Abs Immature Grans 0.24 10^3/uL (0.0-0.06); Absolute Basophil Count 0.06 10^3/uL (0.0-0.2); Absolute Eosinophil Count 0.21 10^3/uL (0.0-0.7); Absolute Lymphocyte Count 1.84 10^3/uL (1.2-3.4); Absolute Monocyte Count 0.75 10^3/uL (0.1-0.8); Absolute Neutrophil Count 6.56 10^3/uL (1.2-6.7); Basophils % 0.6 %; Eosinophils % 2.2 %; HGB 11.1 g/dL (11.2-15.7); Immature Grans % 2.5 %; MCH 30.2 pg (27.0-33.0); MCHC 30.8 % (32.0-36.0); MCV 98 fL (80-95); MPV 11.6 fL (8.0-11.0); Monocytes % 7.8 %; Neutrophils % 67.9 %; Platelet Count 205 10^3/uL (130-400); RBC 3.68 10^6/uL (3.93-5.22); RDW 14.1 % (11.7-14.6); RDW-SD 51.1 fL; WBC 9.66 10^3/uL (4.4-10.8)
[2024-10-29 14:43] LABS: ALT 9 U/L (14-59); AST 14 U/L (15-37); Albumin 2.8 g/dL (3.4-5.0); Alkaline Phosphatase 113 U/L (46-116); Anion Gap 8.4 mmol/L (3-11); BUN 61 mg/dL (7-18); Bilirubin, Total 0.3 mg/dL (0.2-1.0); CO2 27.6 mmol/L (21.0-32.0); CREATININE 2.3 mg/dL (0.55-1.02); Calcium 8.9 mg/dL (8.5-10.1); Chloride 104 mmol/L (98-107); Estimated GFR 20.96 (mL/min/1.73m2); Glucose 260 mg/dL (74-106); NT-proBNP 3660 pg/mL (<300); Potassium 4.1 mmol/L (3.5-5.1); Sodium 140 mmol/L (136-145); TSH 2.18 uIU/mL (0.36-3.74); Total Protein 6.5 g/dL (6.4-8.2)
== END 2024-10-29 14:06 | disposition home or self-care (01) ==
LOC: NCHCN 14:05
PROVIDERS: PCP Family Medicine; Visit Provider Nurse Practitioner Gerontology
DX: E11.9 Type 2 diabetes mellitus without complications (principal)
CPT/HCPCS: 80053; 83036; 83880; 84443; 85025

== ENCOUNTER 2024-11-02 02:42 | Outpatient (CLI) | payer MEDICARE, MEDICAID, SELFPAY ==
--- NOTE | 2024-11-02 | DI.RAD_ITS ---
Exam(s) XR CHEST 2V PA LATERAL EXAM: XR CHEST 2V PA LATERAL CLINICAL HISTORY: COUGH FOR ONE DAY. TECHNIQUE: 2D digital imaging was performed. COMPARISON: CR,XR XR PORTABLE CHEST AP from 02/19/2024 FINDINGS: 2 views: Heart size is normal. The mediastinum is not widened. There is prominent infiltrate in the in left lung involving left upper lobe and probably superior seg ment left lower lobe. Right lung is clear. No pleural effusions. No pulmonary edema. IMPRESSION: Prominent left lung infiltrate. DATA REPOSITORY: RADIATION DOSE DELIVERED:
== END 2024-11-02 03:02 ==
LOC: DI 02:42
PROVIDERS: PCP Family Medicine; Visit Provider Nurse Practitioner Gerontology
DX: R05.9 Cough, unspecified (principal); R91.8 Other nonspecific abnormal finding of lung field
CPT/HCPCS: 71046

== ENCOUNTER 2024-12-14 16:15 | Outpatient (REF) | payer MEDICARE, MEDICAID, SELFPAY ==
[2024-12-14 19:05] LABS: Glucose Negative (Negative)
[2024-12-14 19:10] LABS: WBC >50 HPF (0-5)
== END 2024-12-14 16:16 | disposition home or self-care (01) ==
LOC: LBN 16:15
PROVIDERS: Nurse Practitioner Family; PCP Family Medicine; Visit Provider Family Medicine
DX: E11.9 Type 2 diabetes mellitus without complications (principal)
CPT/HCPCS: 87077; 81003; 81015; 87086; 87186

== ENCOUNTER 2025-01-01 02:31 | Outpatient (CLI) | payer MEDICARE, MEDICAID, SELFPAY ==
--- NOTE | 2025-01-01 | DI.RAD_ITS ---
Exam(s) XR CHEST 2V PA LATERAL EXAM: XR CHEST 2V PA LATERAL CLINICAL HISTORY: F/U PNEUMONIA,J18.9. TECHNIQUE: 2D digital imaging was performed. COMPARISON: CR XR CHEST 2V PA LATERAL from 11/02/2024 FINDINGS: 2 views: Heart size is upper normal. The mediastinum is not widened. There is significant improvement in the left lung infiltrate which appears to have mostly resolved. Also improvement in the infiltrate in the lower right lung. There are no obvious pleural effusions. No pulmonary edema. No fractures. IMPRESSION: Significant radiographic improvement when compared to 11/02/2024. DATA REPOSITORY: RADIATION DOSE DELIVERED:
== END 2025-01-01 02:51 ==
LOC: DI 02:31
PROVIDERS: PCP Family Medicine; Visit Provider Family Medicine
DX: J18.9 Pneumonia, unspecified organism (principal)
CPT/HCPCS: 71046

== ENCOUNTER 2025-01-28 01:40 | Outpatient (REF) | payer MEDICARE, MEDICAID, SELFPAY ==
[2025-01-28 02:27] LABS: Anion Gap 7.9 mmol/L (3-11); BUN 69 mg/dL (7-18); CO2 28.1 mmol/L (21.0-32.0); Calcium 8.6 mg/dL (8.5-10.1); Chloride 106 mmol/L (98-107); Estimated GFR 23.38 (mL/min/1.73m2); Glucose 151 mg/dL (74-106); Potassium 4.5 mmol/L (3.5-5.1); Sodium 142 mmol/L (136-145)
== END 2025-01-28 01:41 | disposition home or self-care (01) ==
LOC: LBN 01:40
PROVIDERS: PCP Family Medicine; Visit Provider Nurse Practitioner Family
DX: N18.4 Chronic kidney disease, stage 4 (severe) (principal)
CPT/HCPCS: 80048

== ENCOUNTER 2025-02-07 15:26 | Outpatient (REF) | payer MEDICARE, MEDICAID, SELFPAY ==
[2025-02-07 16:01] LABS: Abs Immature Grans 0.02 10^3/uL (0.0-0.06); HCT 31.6 % (36.0-46.0); HGB 10.1 g/dL (11.2-15.7); Immature Grans % 0.3 %; MCH 31.1 pg (27.0-33.0); MCHC 32.0 % (32.0-36.0); MCV 97 fL (80-95); MPV 11.8 fL (8.0-11.0); Platelet Count 217 10^3/uL (130-400); RBC 3.25 10^6/uL (3.93-5.22); RDW 16.2 % (11.7-14.6); RDW-SD 57.7 fL; WBC 6.80 10^3/uL (4.4-10.8)
[2025-02-07 16:12] LABS: Uric Acid 9.3 mg/dL (2.6-6.0)
== END 2025-02-07 15:27 | disposition home or self-care (01) ==
LOC: LBN 15:26
PROVIDERS: PCP Family Medicine; Visit Provider Nurse Practitioner Adult Health
DX: D63.1 Anemia in chronic kidney disease (principal)
CPT/HCPCS: 84550; 85025

== ENCOUNTER 2025-03-17 08:19 | Outpatient (REF) | payer MEDICARE, MEDICAID, SELFPAY ==
[2025-03-17 10:47] LABS: Glucose Negative (Negative)
[2025-03-17 10:55] LABS: RBC Negative HPF (0-2)
== END 2025-03-17 08:20 | disposition home or self-care (01) ==
LOC: LBN 08:19
PROVIDERS: PCP Family Medicine; Visit Provider Nurse Practitioner Adult Health
DX: R82.90 Unspecified abnormal findings in urine (principal)
CPT/HCPCS: 87077; 81003; 81015; 87086; 87186

== ENCOUNTER → 2025-03-29 10:40 | Outpatient (BNVA) | payer MEDICARE, MEDICAID, SELFPAY | PROVIDERS: PCP Family Medicine; Referring Provider Family Medicine; Visit Provider Podiatrist | DX: L60.3 Nail dystrophy (principal); B35.1 Tinea unguium; D64.9 Anemia, unspecified; E11.22 Type 2 diabetes mellitus with diabetic chronic kidney disease; N18.4 Chronic kidney disease, stage 4 (severe); R09.89 Other specified symptoms and signs involving the circulatory and respiratory systems; L65.9 Nonscarring hair loss, unspecified; I83.93 Asymptomatic varicose veins of bilateral lower extremities; R23.8 Other skin changes; R23.4 Changes in skin texture; L60.2 Onychogryphosis; L60.8 Other nail disorders | CPT/HCPCS: 11721 ==

== ENCOUNTER 2025-04-06 14:11 | Outpatient (REF) | payer MEDICARE, MEDICAID, SELFPAY ==
[2025-04-06 16:06] LABS: Abs Immature Grans 0.02 10^3/uL (0.0-0.06); HCT 33.4 % (36.0-46.0); HGB 10.5 g/dL (11.2-15.7); Immature Grans % 0.4 %; MCH 31.7 pg (27.0-33.0); MCHC 31.4 % (32.0-36.0); MCV 101 fL (80-95); MPV 11.9 fL (8.0-11.0); Platelet Count 219 10^3/uL (130-400); RBC 3.31 10^6/uL (3.93-5.22); RDW 14.2 % (11.7-14.6); RDW-SD 52.4 fL; WBC 5.35 10^3/uL (4.4-10.8)
[2025-04-06 16:38] LABS: ALT 11 U/L (14-59); AST 12 U/L (15-37); Albumin 2.8 g/dL (3.4-5.0); Alkaline Phosphatase 94 U/L (46-116); Anion Gap 10.0 mmol/L (3-11); BUN 46 mg/dL (7-18); Bilirubin, Total 0.2 mg/dL (0.2-1.0); CO2 29.0 mmol/L (21.0-32.0); Calcium 9.2 mg/dL (8.5-10.1); Chloride 104 mmol/L (98-107); Glucose 201 mg/dL (74-106); Potassium 4.4 mmol/L (3.5-5.1); Sodium 143 mmol/L (136-145); TSH 4.45 uIU/mL (0.36-3.74); Total Protein 6.1 g/dL (6.4-8.2); Vitamin B12 1329 pg/mL (193-986)
== END 2025-04-06 14:12 | disposition home or self-care (01) ==
LOC: LBN 14:11
PROVIDERS: PCP Family Medicine; Visit Provider Nurse Practitioner Adult Health
DX: I13.0 Hypertensive heart and chronic kidney disease with heart failure and stage 1 through stage 4 chronic kidney disease, or unspecified chronic kidney disease (principal)
CPT/HCPCS: 80053; 82607; 84443; 85025

== ENCOUNTER 2025-04-07 12:18 | Emergency (ER) | payer MEDICARE, MEDICAID, SELFPAY ==
[2025-04-07] VITALS (72 sets, daily range): BP systolic 95–166; BP diastolic 39–122; PULSE 59–98; RESP 13–25; TEMP 36.8; O2SAT 89–98
--- NOTE | 2025-04-07 13:00 | DI.CT_ITS ---
Exam(s) CT HEAD WO EXAM: CT HEAD WO CLINICAL HISTORY: headache. TECHNIQUE: Imaging Protocol: Axial computed tomography images with coronal and sagittal reformatted images were created and reviewed COMPARISON: No exams were available for comparison FINDINGS: There are no skull fractures. There is no fluid in the visualized paranasal sinuses. There is no evidence of intracranial hemorrhage, mass effect, or shift of midline structures. There are no extra-axial fluid collections. The ventricles are not enlarged or shifted and there is no blood within the ventricular system nor within the basal cisterns. Small benign midline lipoma noted. IMPRESSION: No acute intracranial findings on this noninfused CT scan of the brain. Called by myself to ER provider 04/07/2025 at 3:22 p.m. RADIATION DOSE DELIVERED: 810.38mGy.cm Total DLP DATA REPOSITORY: All CT scans at this facility are submitted to the National Radiology Data Registry (NRDR) Dose Index Registry (DIR) with the [employer] (ACR). RADIATION OPTIMIZATION: All CT scans at this facility use at least one of these dose optimization techniques: automated exposure control; mA and/or kV adjustment per patient size (includes targeted exams where dose is matched to clinical indication); or iterative reconstruction.
--- NOTE | 2025-04-07 13:00 | DI.RAD_ITS ---
Exam(s) XR CHEST 2V PA LATERAL EXAM: XR CHEST 2V PA LATERAL CLINICAL HISTORY: weakness. TECHNIQUE: 2D digital imaging was performed. COMPARISON: CT CT CHEST WO from 02/19/2024 CR XR CHEST 2V PA LATERAL from 11/02/2024 CR XR CHEST 2V PA LATERAL from 01/01/2025 FINDINGS: 2 views: Heart size is normal. The mediastinum is not widened. Right lung is clear. There is persistent density in left lower lobe projected over the heart. This may represent valvular calcification in the mitral valve of the heart as post infiltrate. However on the lateral view there appears to be a pleural effusion or pleural thickening posteriorly, more so than previous. IMPRESSION: Persistent small left pleural effusion. Calcified mitral valve annulus. No pulmonary edema. DATA REPOSITORY: RADIATION DOSE DELIVERED:
--- NOTE | 2025-04-07 13:00 | RT.EKG_ITS ---
APPROVED REPORT Exam: Resting ECG Reason for Exam: weakness Patient Location: E HR:75 bpm ECG Measurements Heart Rate 75 AXIS AK 300 P 46 QRSd 122 QRS -72 QT 414 T 40 QTc 462 Conclusion Sinus rhythm, rate 75 1st degree HB, AK interval 300ms RBBB unchanged from priors Peaked T waves improving compared to priors No STEMI
[2025-04-07 13:53] LABS: Abs Immature Grans 0.03 10^3/uL (0.0-0.06); HCT 35.2 % (36.0-46.0); HGB 10.9 g/dL (11.2-15.7); Immature Grans % 0.4 %; MCH 31.1 pg (27.0-33.0); MCHC 31.0 % (32.0-36.0); MCV 100 fL (80-95); MPV 11.3 fL (8.0-11.0); Platelet Count 255 10^3/uL (130-400); RBC 3.51 10^6/uL (3.93-5.22); RDW 14.3 % (11.7-14.6); RDW-SD 52.3 fL; WBC 6.80 10^3/uL (4.4-10.8)
[2025-04-07 13:56] LABS: BE (Venous) 6 mmol/L (-2-3); HCO3 (Venous) 32 mmol/L (23-28); O2 Sat (Venous) 60 %; TCO2 (Venous) 30 mmol/L (24-29); pCO2 (Venous) 59 mmHg (41-51); pO2 (Venous) 32 mmHg
[2025-04-07 14:10] LABS: ALT 8 U/L (14-59); AST 11 U/L (15-37); Albumin 2.8 g/dL (3.4-5.0); Alkaline Phosphatase 100 U/L (46-116); Anion Gap 8.2 mmol/L (3-11); BUN 41 mg/dL (7-18); Bilirubin, Total 0.2 mg/dL (0.2-1.0); CO2 32.8 mmol/L (21.0-32.0); Calcium 9.1 mg/dL (8.5-10.1); Chloride 105 mmol/L (98-107); Creatine Kinase 15 U/L (26-192); Glucose 174 mg/dL (74-106); Potassium 4.7 mmol/L (3.5-5.1); Sodium 146 mmol/L (136-145); Total Protein 6.9 g/dL (6.4-8.2)
[2025-04-07 14:13] LABS: Troponin I 31 ng/L (<or=51)
[2025-04-07] MEDS: ACETAMINOPHEN 500 MG/50 ML BAG 200 MG IVPB (14:19)
[2025-04-07] MEDS: Prochlorperazine 10 MG/2 ML VIAL 5 MG IVP (14:19)
[2025-04-07] MEDS: Normal Saline 500 ML IV ×2 (14:20→16:02)
[2025-04-07 14:50] LABS: COVID-19 PCR Negative (Negative); RSV PCR Negative (Negative)
--- NOTE | 2025-04-07 15:14 | W.ED.GENAD ---
Discharge Plan Disposition Patient Disposition: Home Condition: Stable Discharge Details Clinical Impression: Acute UTI, Acute dehydration Primary Care Provider: Pilar Rogers ED Provider: Steff Hudson Home Meds and New Rx's Prescriptions: New cefdinir 300 mg capsule 300 mg PO DAILY Qty: 7 0RF Continued methol methyl salicylate liniments 10-15% topical selenium sulfide external lotion topical triamcinolone acetonide 0.1 % cream 1 applic topical DAILY bupivacaine (PF) 0.25 % (2.5 mg/mL) solution 2 ml SQ ONB ONCE Qty: 2 0RF lidocaine (PF) 20 mg/mL (2 %) solution 40 mg SQ ONB ONCE Qty: 2 0RF acetaminophen [Tylenol Extra Strength] 500 mg tablet 1,000 mg PO BID aspirin [Adult Aspirin Regimen] 81 mg tablet,delayed release (DR/EC) 81 mg PO DAILY ferrous gluconate 240 mg (27 mg iron) tablet 240 mg PO DAILY insulin lispro [Humalog KwikPen Insulin] 100 unit/mL insulin pen 7 unit subcut QAC melatonin 3 mg capsule 3 mg PO HS memantine 10 mg tablet 10 mg PO HS polyethylene glycol 3350 17 gram/dose powder 17 g PO DAILY Rx Instructions: *and additional 17gm PO daily PRN nitroglycerin [Nitrostat] 0.4 mg tablet, sublingual 0.4 mg sublingual Q5M PRN Rx Instructions: do not exceed 3 doses per episode pantoprazole [Protonix] 40 mg tablet,delayed release (DR/EC) 40 mg PO DAILY venlafaxine 150 mg capsule,extended release 24hr 150 mg PO DAILY Levemir U-100 Insulin 100 unit/mL solution 15 unit subcut QHS magnesium oxide 400 mg magnesium capsule 400 mg PO BID gabapentin 300 mg Capsule 300 mg PO BID Qty: 0 0RF Excedrin Extra Strength 250-250-65 mg tablet 2 tab PO DAILY PRN PRN metoprolol succinate 100 mg tablet extended release 24 hr 100 mg PO DAILY Patient Comments: takes at HS Discharge Instructions Instructions: Dehydration, Adult (DC), Urinary Tract Infection, Adult ED Additional Instructions: It is really important that Taryn has at 64 ounces of water daily Antibiotic as prescribed for urinary tract infection Today Taryn was quite dehydrated and it looks like she has a urinary tract infection she received her dose of antibiotics this evening she will need her next dose tomorrow Please return should Taryn develop fever, worsening pain, or inability to take her antibiotic orally, or should any new concerns arise PCP recheck tomorrow Referrals: Pilar Rogers MD [Primary Care Provider, Medicine] Discharge Data Discharge Date/Time-TO BE ENTERED AT DEPARTURE: 04/07/25 20:55 HPI General Date/Time Provider Initiated Documentation: 04/07/25 12:25. HPI Narrative: This 79-year-old female presents with a report of urinary symptoms, diffuse body pain and and fatigue from the [facility]. She has any falls or injuries. She states she awoke with the discomfort. She states she has felt like this before but cannot recall the event. She has any cough or known fever. She has any new medications. She denies known exacerbating or relieving factors or rashes or lesions. Denies any stiff neck does states she has a mild intermittent headache which is not new for her. Denies any tick bites. Related Data Home Medications Medication Instructions Recorded Confirmed acetaminophen 500 mg tablet 1,000 mg PO BID 01/13/23 03/29/25 (Tylenol Extra Strength) aspirin 81 mg tablet,delayed 81 mg PO DAILY 01/13/23 03/29/25 release (Adult Aspirin Regimen) ferrous gluconate 240 mg (27 mg 240 mg PO DAILY 01/13/23 03/29/25 iron) tablet insulin lispro 100 unit/mL 7 unit subcut QA 01/13/23 03/29/25 subcutaneous pen (Humalog KwikPen (U-100) Insulin) melatonin 3 mg capsule 3 mg PO HS 01/13/23 03/29/25 memantine 10 mg tablet 10 mg PO HS 01/13/23 03/29/25 nitroglycerin 0.4 mg sublingual 0.4 mg sublingual Q5M PRN 01/13/23 03/29/25 tablet (Nitrostat) pantoprazole 40 mg tablet,delayed 40 mg PO DAILY 01/13/23 03/29/25 release (Protonix) polyethylene glycol 3350 17 17 g PO DAILY 01/13/23 03/29/25 gram/dose oral powder venlafaxine 150 mg 150 mg PO DAILY 01/13/23 03/29/25 capsule,extended release 24 hr insulin detemir U-100 100 unit/mL 15 unit subcut QHS 01/19/23 03/29/25 subcutaneous solution (Levemir U-100 Insulin) magnesium oxide 400 mg PO BID 01/19/23 03/29/25 gabapentin 300 mg capsule 300 mg PO BID #0 caps 02/06/23 03/29/25 [id number] 250 2 tab PO DAILY PRN PRN 06/06/23 03/29/25 mg-250 mg-65 mg tablet (Excedrin Extra Strength) metoprolol succinate 100 mg 100 mg PO DAILY 06/06/23 03/29/25 tablet,extended release 24 hr methol methyl salicylate liniments topical 10/28/23 03/29/25 10-15% selenium sulfide external lotion topical 10/28/23 03/29/25 triamcinolone acetonide 0.1 % 1 applic topical DAILY 10/28/23 03/29/25 topical cream cefdinir 300 mg capsule 300 mg PO DAILY #7 caps 04/07/25 Previous Rx's Medication Instructions Recorded gabapentin 300 mg capsule 300 mg PO BID #0 caps 02/06/23 cefdinir 300 mg capsule 300 mg PO DAILY #7 caps 04/07/25 Allergies Allergy/AdvReac Type Severity Reaction Status Date / Time azithromycin Allergy Unknown Other (See Verified 03/29/25 10:56 Comment) codeine Allergy Unknown Other (See Verified 03/29/25 10:56 Comment) General Stated Complaint: [facility] RENA: 3 Exam Narrative Exam Narrative: Alert tired appearing 79-year-old female in no acute distress pale, clear to auscultation cardiac rate rhythm regular no abdominal tenderness no peripheral edema strength and sensation intact distally no meningismus pupils equal round light and accommodation alert and oriented x 4 Course Vital Signs Vital signs: Vital Signs Temperature 36.8 C 04/07/25 12:24 Pulse 98 H 04/07/25 12:24 Respiratory Rate 15 04/07/25 12:24 Blood Pressure 118/99 H 04/07/25 12:24 Pulse Oximetry 96 04/07/25 12:24 Temperature 36.8 C 04/07/25 12:29 Temperature Source Oral 04/07/25 12:29 Pulse 98 H 04/07/25 12:29 Respiratory Rate 15 04/07/25 12:29 Respiratory Effort Normal 04/07/25 14:21 Blood Pressure 118/99 H 04/07/25 12:29 Blood Pressure Position Sitting 04/07/25 12:29 Pulse Oximetry 96 04/07/25 12:29 Oxygen Delivery Method Room Air 04/07/25 12:29 Oxygen Flow Rate 0 04/07/25 12:29 Pain Level 10 04/07/25 12:29 Lab/Test Results Lab/Test Results: 04/07/25 14:04 Blood Blood Culture - Pending 04/07/25 13:40 Blood Blood Culture - Pending Laboratory Tests Range/Units 04/07/25 04/07/25 04/07/25 12:25 12:26 13:40 WBC (4.4-10.8) 10^3/uL 6.80 RBC (3.93-5.22) 10^6/uL 3.51 L Hgb (11.2-15.7) g/dL 10.9 L Hct (36.0-46.0) % 35.2 L MCV (80-95) fL 100 H MCH (27.0-33.0) pg 31.1 MCHC (32.0-36.0) % 31.0 L RDW (11.7-14.6) % 14.3 Plt Count (130-400) 10^3/uL 255 MPV (8.0-11.0) fL 11.3 H Immature Gran % % 0.4 Neutrophils % % 62.2 Lymphocytes % % 19.6 Monocytes % % 10.9 Eosinophils % % 5.9 Basophils % % 1.0 Nucleated RBC % (0.0-0.3) % 0.0 Absolute Neutrophils (1.2-6.7) 10^3/uL 4.23 Absolute Lymphocytes (1.2-3.4) 10^3/uL 1.33 Absolute Monocytes (0.1-0.8) 10^3/uL 0.74 Absolute Eosinophils (0.0-0.7) 10^3/uL 0.40 Absolute Basophils (0.0-0.2) 10^3/uL 0.07 VBG pH Cancelled 7.34 VBG pCO2 Cancelled 59 H VBG pO2 Cancelled 32 VBG HCO3 Cancelled 32 H VBG Total CO2 Cancelled 30 H VBG O2 Saturation Cancelled 60 VBG Base Excess Cancelled 6 H VBG Lactate Cancelled 2.1 Sodium (136-145) mmol/L 146 H Potassium (3.5-5.1) mmol/L 4.7 Chloride (98-107) mmol/L 105 Carbon Dioxide (21.0-32.0) mmol/L 32.8 H Anion Gap (3-11) mmol/L 8.2 BUN (7-18) mg/dL 41 H Creatinine (0.55-1.02) mg/dL 2.2 H Est GFR (CKD-EPI 2020) (mL/min/1.73m2) 22.11 Glucose (74-106) mg/dL 174 H Calcium (8.5-10.1) mg/dL 9.1 Magnesium Cancelled Total Bilirubin (0.2-1.0) mg/dL 0.2 AST (15-37) U/L 11 L ALT (14-59) U/L 8 L Alkaline Phosphatase (46-116) U/L 100 Creatine Kinase (26-192) U/L 15 L Troponin I (<or=51) ng/L 31 Total Protein (6.4-8.2) g/dL 6.9 Albumin (3.4-5.0) g/dL 2.8 L COVID-19 Source SARS-CoV-2 (PCR) (Negative) Influenza Type A (PCR) (Negative) Influenza Type B (PCR) (Negative) RSV (PCR) (Negative) Range/Units 04/07/25 14:04 WBC (4.4-10.8) 10^3/uL RBC (3.93-5.22) 10^6/uL Hgb (11.2-15.7) g/dL Hct (36.0-46.0) % MCV (80-95) fL MCH (27.0-33.0) pg MCHC (32.0-36.0) % RDW (11.7-14.6) % Plt Count (130-400) 10^3/uL MPV (8.0-11.0) fL Immature Gran % % Neutrophils % % Lymphocytes % % Monocytes % % Eosinophils % % Basophils % % Nucleated RBC % (0.0-0.3) % Absolute Neutrophils (1.2-6.7) 10^3/uL Absolute Lymphocytes (1.2-3.4) 10^3/uL Absolute Monocytes (0.1-0.8) 10^3/uL Absolute Eosinophils (0.0-0.7) 10^3/uL Absolute Basophils (0.0-0.2) 10^3/uL VBG pH VBG pCO2 VBG pO2 VBG HCO3 VBG Total CO2 VBG O2 Saturation VBG Base Excess VBG Lactate Sodium (136-145) mmol/L Potassium (3.5-5.1) mmol/L Chloride (98-107) mmol/L Carbon Dioxide (21.0-32.0) mmol/L Anion Gap (3-11) mmol/L BUN (7-18) mg/dL Creatinine (0.55-1.02) mg/dL Est GFR (CKD-EPI 2020) (mL/min/1.73m2) Glucose (74-106) mg/dL Calcium (8.5-10.1) mg/dL Magnesium Total Bilirubin (0.2-1.0) mg/dL AST (15-37) U/L ALT (14-59) U/L Alkaline Phosphatase (46-116) U/L Creatine Kinase (26-192) U/L Troponin I (<or=51) ng/L Total Protein (6.4-8.2) g/dL Albumin (3.4-5.0) g/dL COVID-19 Source Nasopharynx SARS-CoV-2 (PCR) (Negative) Negative Influenza Type A (PCR) (Negative) Negative Influenza Type B (PCR) (Negative) Negative RSV (PCR) (Negative) Negative Medical Decision Making Results: Baseline anemia hemoglobin 10.9 hematocrit 35.2, VBG reassuring sodium 136 initial pCO2 of 59 however on repeat 49 after fluid administration BUN of 41 actually improved from prior value and creatinine 2.2 baseline for patient urinalysis concerning for infection packed bacteria greater than 50 white blood cells will send for culture Assessment and plan: Patient initially quite tired in appearance and unable to obtain a urine specimen with only 100 cc in her bladder after 2-1/2 hours of being in the emergency department and 500 cc of fluid. I suspect patient is fatigued from dehydration and possible UTI. She was given 2000 cc of fluid and 32 ounces of oral hydration and they were able to obtain a urine and patient is much more alert. There is no indication for head CT, she was fatigued initially but oriented x 4. She also endorsed she did not sleep well last evening. Urinalysis concerning for infection, will send for urine culture and start empirically on cefdinir for 7 days. Hydration recommendations sent to assisted living facility where patient resides. Patient is significantly improved at time of reassessment I spoke with her daughter and she is comfortable with patient being discharged home to the assisted living facility at this time. I did dose adjusted cefdinir secondary to creatinine clearance of less than 30. Return precautions reviewed and recheck by PCP recommended in 24 hours. Patient otherwise asymptomatic no tenderness to abdomen pelvis oriented x 4 answering questions appropriately. No history of alcoholism low suspicion clinically for hepatic encephalopathy or illicit substance use. PFSH All Active Problems (Updated 04/07/25 @ 19:30 by ARVIND Arshad) Acute dehydration (Acute) Acute UTI (Acute) Onychomycosis (Acute) Anxiety (Chronic) Osteoarthritis (Chronic) PTSD (post-traumatic stress disorder) (Acute) Major depressive disorder (Chronic) Type 2 diabetes mellitus (Acute) Anemia (Chronic) due to CKD Depressed (Chronic) Migraine headache with aura (Acute) Migraine headache without aura (Acute) Pneumonia (Acute) Pericardial effusion (Acute) Post herpetic neuralgia (Acute) Mass of right lung (Acute) Narrow complex tachycardia (Acute) Diabetes mellitus (Chronic) Renal mass (Acute) Aortic stenosis (Chronic) GERD (gastroesophageal reflux disease) (Chronic) Chronic kidney disease, stage 4 (severe) (Acute) Hyperlipidemia (Acute) HTN (hypertension) with goal to be determined (Acute) Medical History GI bleed Other abnormalities of gait and mobility Muscle weakness Surgical History S/P hysterectomy S/P cholecystectomy Family History Mother , age 69, also had aortic valve replacement Heart disease Social History Smoking/Tobacco Use Status: Never Smoking risk assessment performed?: Yes Alcohol Intake: never Drug use: Never Substance use type: does not use Housing: longterm Do you feel safe at home: Yes Do you feel safe in your relationship?: Yes Additional Social history: Living at [facility] after living in [facility] for many years Has 4 sons and one daughter.
[2025-04-07 16:08] LABS: Troponin I 30 ng/L (<or=51)
[2025-04-07 17:09] LABS: BE (Venous) 4 mmol/L (-2-3); HCO3 (Venous) 29 mmol/L (23-28); O2 Sat (Venous) 74 %; TCO2 (Venous) 27 mmol/L (24-29); pCO2 (Venous) 49 mmHg (41-51); pO2 (Venous) 38 mmHg
[2025-04-07] MEDS: Normal Saline 500 ML 250 ML IV (17:25)
[2025-04-07] MEDS: Normal Saline 1,000 ML 1000 ML IV (17:26)
[2025-04-07 19:13] LABS: Glucose Negative (Negative)
[2025-04-07 19:21] LABS: RBC Negative HPF (0-2); WBC >50 HPF (0-5)
[2025-04-07] MEDS: cefTRIAXone 1 GM/50 ML BAG IVPB (19:56)
[2025-04-09 09:57] LABS: Lyme Ab w Rflx to Lyme Confirm Negative (Negative)
--- NOTE | 2025-04-10 10:24 | NUR.NOTE ---
Access chart to determine antibiotic on discharge for urine culture. Result given to provider. Nursing Note:
[2025-04-10 16:30] LABS: B. miyamotoi PCR Negative (Negative); Babesia divergens/MO-1 Negative (Negative); Ehrlichia muris eauclairensis Negative (Negative)
--- NOTE | 2025-04-11 16:30 | W.ED.FU ---
Date of service: 04/11/25 Time of Service: 16:30 Follow Up Plan: patient discharged on cephalosporin. Urine culture growing pansensitive E. coli.
== END 2025-04-07 20:55 | disposition home or self-care (01) ==
PROVIDERS: Emergency Provider Physician Assistant; PCP Family Medicine
DX: N39.0 Urinary tract infection, site not specified (principal); E86.0 Dehydration; E11.9 Type 2 diabetes mellitus without complications
CPT/HCPCS: 36415; 36416; 51798; 80053; 82550; 82805; 82962; 87040; 87077; 87637; 87798; 93005; 96365; 96366; 96367; 96375; 99284; 70450; 71046; 81003; 81015; 83605; 83735; 84484; 85025; 86618; 87086; 87186; 93010; J0131; J0696; J0780

== ENCOUNTER 2025-04-16 16:53 | Outpatient (REF) | payer MEDICARE, MEDICAID, SELFPAY ==
[2025-04-16 19:43] LABS: COVID-19 PCR Negative (Negative); RSV PCR Negative (Negative)
== END 2025-04-16 16:54 | disposition home or self-care (01) ==
LOC: LBN 16:53
PROVIDERS: PCP Family Medicine; Visit Provider Nurse Practitioner Adult Health
DX: J06.9 Acute upper respiratory infection, unspecified (principal)
CPT/HCPCS: 87637

== ENCOUNTER 2025-05-02 11:12 | Outpatient (REF) | payer MEDICARE, MEDICAID, SELFPAY ==
[2025-05-02 14:22] LABS: Hemoglobin A1C 5.9 % (<5.7)
== END 2025-05-02 11:13 | disposition home or self-care (01) ==
LOC: LBN 11:12
PROVIDERS: PCP Family Medicine; Visit Provider Nurse Practitioner Adult Health
DX: E11.9 Type 2 diabetes mellitus without complications (principal)
CPT/HCPCS: 83036

== ENCOUNTER → 2025-05-07 12:44 | Outpatient (BNVA) | payer MEDICARE, MEDICAID, SELFPAY | PROVIDERS: PCP Family Medicine; Referring Provider Family Medicine; Visit Provider Podiatrist | DX: I70.223 Atherosclerosis of native arteries of extremities with rest pain, bilateral legs (principal); E11.22 Type 2 diabetes mellitus with diabetic chronic kidney disease; N18.4 Chronic kidney disease, stage 4 (severe); I73.89 Other specified peripheral vascular diseases; D64.9 Anemia, unspecified; B35.1 Tinea unguium | CPT/HCPCS: 93922 ==

== ENCOUNTER 2025-05-17 15:51 | Outpatient (REF) | payer MEDICARE, MEDICAID, SELFPAY ==
[2025-05-17 13:56] LABS: Abs Immature Grans 0.02 10^3/uL (0.0-0.06); HCT 35.4 % (36.0-46.0); HGB 10.9 g/dL (11.2-15.7); Immature Grans % 0.3 %; MCH 30.8 pg (27.0-33.0); MCHC 30.8 % (32.0-36.0); MCV 100 fL (80-95); MPV 12.0 fL (8.0-11.0); Platelet Count 232 10^3/uL (130-400); RBC 3.54 10^6/uL (3.93-5.22); RDW 14.2 % (11.7-14.6); RDW-SD 51.9 fL; WBC 6.67 10^3/uL (4.4-10.8)
[2025-05-17 14:47] LABS: Troponin I 21 ng/L (<35)
[2025-05-17 14:49] LABS: TSH 4.18 uIU/mL (0.55-4.78)
[2025-05-17 14:59] LABS: Hemoglobin A1C 5.9 % (<5.7)
[2025-05-17 15:29] LABS: Anion Gap 11.3 mmol/L (3-11); BUN 56 mg/dL (9-23); CO2 25.7 mmol/L (20.0-31.0); Calcium 9.3 mg/dL (8.3-10.6); Chloride 106 mmol/L (98-107); Cholesterol 238 mg/dL (<200); Glucose 215 mg/dL (74-106); HDL Cholesterol 41 mg/dL (>40); Potassium 4.7 mmol/L (3.5-5.1); Sodium 143 mmol/L (136-145); Uric Acid 8.7 mg/dL (3.1-7.8)
== END 2025-05-17 15:52 | disposition home or self-care (01) ==
LOC: LBN 15:51
PROVIDERS: PCP Family Medicine; Visit Provider Nurse Practitioner Adult Health
DX: I13.0 Hypertensive heart and chronic kidney disease with heart failure and stage 1 through stage 4 chronic kidney disease, or unspecified chronic kidney disease (principal); E11.9 Type 2 diabetes mellitus without complications; E78.5 Hyperlipidemia, unspecified; M10.041 Idiopathic gout, right hand
CPT/HCPCS: 80048; 80061; 83036; 84443; 84484; 84550; 85025